=== PATIENT | female | born 1980 | race Caucasian/White ===

== ENCOUNTER → 2017-07-17 10:42 | Outpatient (CLI) | payer MEDICAID, SELFPAY ==
--- NOTE | 2017-07-17 10:46 | RAD_ITS ---
STUDY: X-RAY - LUMBAR SPINE REASON FOR EXAM: Female, 37 years old. Low back pain. TECHNIQUE: 5 view(s) of the lumbar spine were obtained including oblique views. COMPARISON: None FINDINGS: Normal lumbar lordosis. There is no substantial scoliosis. There is a normal alignment of the vertebrae. Normal vertebral bodies and endplates. Normal disc space heights. The soft tissue structures are unremarkable. RAD/L/S Spine Min 4 Views IMPRESSION: Normal x-ray examination of the lumbar spine. Electronically Signed: Francisco Lopez MD at 15:38 EST Tel [phone], Service support ,
== END ==
PROVIDERS: Family Provider Family Medicine; PCP Family Medicine; Visit Provider Anesthesiology Pain Medicine
DX: M54.5 Low back pain (principal)
CPT/HCPCS: 72110

== ENCOUNTER 2017-07-24 11:30 | Outpatient (RCR) | payer MEDICAID, SELFPAY ==
--- NOTE | 2017-06-19 09:58 | HP.PTEVAL_ITS ---
Patient's Visit Information KARLA LANCE is a 37 year old F referred to Physical Therapy by Tom AZAR with a diagnosis of LBP. Date of Evaluation: 06/19/17 Physical Therapist: Sigifredo Hernandez DPT, OC - Visit Plan Frequency: 3x /Week Duration: 4-6 Weeks Plan: 3x/week for 4-6. 1.STM to R LB and upper glut with MH. 2. progression of ext forces as tolerated, R hip ROM and LB ROM. 3. core strength and posture progressing to general ex when tolerated. Emphasize posture adn progression of extension as her motivation to ext is poor. May need to switch to opening R side ex if condition worsens with ext. - Subjective Subjective: Had PT prior for LBP and did not go well. Doctor wants me to try it again now that I detxed off my pain meds. Had chronic back pain 10+ years with DDD and OA. 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 R LB hip and R leg down to foot. Intermittent leg pain and numbness in foot. Constant back pain. 5-10. If stand or sit too long it gets worse.. Sleeping is not good, not more than 3 hours per night due to pain and has to get up and move. No work , disability due to back pain and other medical issues. HEP: none. Basic ADLs are limited to the essentials, Worse pain to stand and cook at stove. Family helps with grocery shopping. Spends day around house and sleeps alot during day. Pool and PT in past as well as massage and injections have not helped alot. More pain after last injection. Saw ortho doctor Trevin who gave her pain meds. Narcotics stopped but they weren't helping anyway. - Pain LBP Pain Intensity (Out of 10): 6 Pain Intensity Range: 4, 8 - Objective Walkls stiff but I into PT, transfers to and fro sit and supine I but slow and painful. LB AROM ext mod limited and pain R, R SB painful, L SB is good, flexion is painful in R hip. reflexes 2/3 in patella and achilles. Sensation mild deficit to gross light touch in R S1 area. Strength in LE is weak in HS R 4- vs 4 in other testing and L LE. + R slump and SLR for back pain. repeated PPU increases back ROM and has NE on pain. - Goals Goal 1:: sleep without waking for 6 hours Goal Time Frame: 4-6 Weeks Goal 2:: L/S ext adn R SB without increased pain Goal Time Frame: 4-6 Weeks Goal 3:: Pain abolished in LE adn 2/10 at worst in LB, 50% improved. Goal Time Frame: 4-6 Weeks Goal 4:: I in approp ex to minimize future problems adn for general health Goal Time Frame: 4-6 Weeks - Rehabilitation Potential Physical Therapy Diagnosis: LBP likely discal in nature. Rehabilitation Potential: Questionable - Anticipated Interventions Patient/Client Instruction: Educate patient on: Condition, Plan of Care For the Purpose of:: To decrease pain, To increase ROM, To improve muscle performance and motor function, To improve ability of physical actions for home/ community/work/leisure Therapeutic Exercise to Include: Strength training, Flexibilty training, Passive ROM, Active ROM, Dynamic Lumbar Stabilization, Luis Miguel Exercises For the Purpose of:: To decrease pain, To increase ROM, To improve ability of physical actions for home/community/work/leisure, To improve gait and locomotor functions Manual Therapy Techniques to Include: Soft tissue mobilization For the Purpose of:: To decrease pain, To increase ROM, To improve nutrient delivery to tissue Thermo therapy (hot pack): Yes For the Purpose of:: To improve nutrient delivery to tissue Thank you for the opportunity to evaluate your patient. For Medicare and Medicare HMO plans, please review the plan of care and approve it. It will need to be FAXED BACK to us at [phone] for Medicare purposes. Please let me know if there are questions or concerns regarding this plan of care. Physician Signature: Date:
--- NOTE | 2017-07-24 12:16 | HP.PTDCSUM_ITS ---
HP - PT D/C Summary It has been my pleasure to treat KARLA LANCE under orders from Tom Giraldo , for the diagnosis of LBP for a total of 7 visit(s). Discharge Date: 07/24/17 Please see the following information for a summary of their discharge status. - Subjective Subjective: No noticeable improvement. LB and R SI still hurting 12/25. F/u with Enzo not scheduled. sees pain doctor. Waiting on ins approval for 6 injections. Doesn't want pain meds. Sleep is half as much as should at about 4 hours per night from bed to couch. I do exercises when i feel like it - Pain LBP Pain Intensity (Out of 10): 8 - Overall Improvement % Improvement: 0 - Objective Objective/Function: ext is improved and not painful at 20 degrees. Felxion hurts R side. B SB is good, but L hurts R side. Not progresing toward goals but ROM slightly improved.OVERALL, NOT IMPROVING. - Goals Goal 1:: sleep without waking for 6 hours Goal Progress: Not Progressing Goal 2:: L/S ext adn R SB without increased pain Goal Progress: Not Progressing Goal 3:: Pain abolished in LE adn 2/10 at worst in LB, 50% improved. Goal Progress: Not Progressing Goal 4:: I in approp ex to minimize future problems adn for general health Goal Progress: Not helping. - Plan Plan: D/C back to doctor for next medical step, injections vs ortho consult. - D/C Information Discharge Comments: No improvement, back to doctor for next step. If there are questions or concerns regarding this patient's physical therapy, please feel free to call me at [phone]. Thank you for the referral of this patient. Sincerely, Sigifredo Hernandez, DPT, OC
== END 2017-07-24 19:00 | disposition home or self-care (01) ==
LOC: PT 11:30
PROVIDERS: Family Provider Family Medicine; PCP Family Medicine; Visit Provider Family Medicine
DX: M54.9 Dorsalgia, unspecified (principal)
CPT/HCPCS: 97110; 97140; 97162; 97530

== ENCOUNTER → 2017-08-12 11:29 | Outpatient (CLI) | payer MEDICAID, SELFPAY ==
--- NOTE | 2017-08-12 11:34 | RAD_ITS ---
STUDY: X-RAY - LUMBAR SPINE REASON FOR EXAM: Female, 37 years old. Right hip pain, fell down steps TECHNIQUE: 5 view(s) of the lumbar spine were obtained. COMPARISON: 07/17/2017 FINDINGS: There is straightening of the normal lumbar lordosis. There is no substantial scoliosis. There is a normal alignment of the vertebrae. Normal vertebral bodies and endplates. Normal disc space heights. The soft tissue structures are unremarkable. RAD/L/S Spine Min 4 Views IMPRESSION: There is straightening of the normal lordotic curve, a nonspecific finding, which may be due to positioning or which might be due to muscle spasm. Electronically Signed: Kiara Day MD at 7:25 EDT , Service support ,
--- NOTE | 2017-08-12 11:34 | RAD_ITS ---
STUDY: X-RAY - PELVIS AND RIGHT HIP REASON FOR EXAM: Female, 37 years old. Right hip pain, fell down steps TECHNIQUE: Radiological exam, hip, unilateral, with pelvis when performed; 2 or 3 views. COMPARISON: None. FINDINGS: There is a non-specific bowel gas pattern. Normal visualized soft tissue structures. Normal bilateral iliac wings, sacroiliac joints and visualized sacrum. Normal bilateral superior and inferior pubic rami. Normal pubic symphysis. Normal bilateral ischial tuberosities. Normal visualized femoral head. Normal acetabulum. Normal hip joint. RAD/Hip 2-3 Views with Pelvis IMPRESSION: Normal x-ray examination of the pelvis and hip. Electronically Signed: Kiara Day MD at 7:27 EDT , Service support ,
--- NOTE | 2017-08-12 11:35 | RAD_ITS ---
STUDY: X-RAY - SACROILIAC JOINTS REASON FOR EXAM: Female, 37 years old. Right hip pain, fell down steps TECHNIQUE: 3 view(s) of the sacroiliac joints were obtained. COMPARISON: CT abdomen and pelvis 11/02/2016. FINDINGS: Normal bilateral sacroiliac joints. Normal visualized sacral ala and sacrum. Normal visualized iliac bones. Normal visualized soft tissue structures. RAD/S-I Jts 3 or More Views IMPRESSION: Normal x-ray examination of the bilateral sacroiliac joints. Electronically Signed: Kiara Day MD at 6:42 EDT , Service support ,
== END ==
PROVIDERS: Family Provider Family Medicine; PCP Family Medicine; Visit Provider Family Medicine
DX: M25.551 Pain in right hip (principal); M54.17 Radiculopathy, lumbosacral region
CPT/HCPCS: 72110; 72202; 73502

== ENCOUNTER → 2017-09-09 11:45 | Outpatient (CLI) | payer MEDICAID, SELFPAY ==
[2017-09-09 14:03] LABS: Absolute Lymphocyte Count 1.93 X10^3/ul (0.83-4.51); Absolute Neutrophil Count 5.4 X10^3/uL (2.0-7.7); Basophil# 0.05 X10^3/uL; Basophil% 0.6 % (0-1); Eosinophil# 0.08 X10^3/uL; Hematocrit 42.5 % (37-47); Hemoglobin 14.3 g/dl (12.0-15.0); Lymphocyte # 1.93 X10^3/ul (4.0); Lymphocyte % 24.7 % (19-41); Mean Corp Hgb Conc 33.6 g/gl (32-36); Mean Corpuscular Hgb 30.7 pg (27.0-32.0); Mean Corpuscular Volume 91.2 fL (81-99); Mean Platelet Vol. 10.7 fl (6.2-12.0); Monocyte# 0.35 X10^3/uL; Monocyte% 4.5 % (0-10); Neutrophil # 5.38 X10^3/uL (2.7-7.7); Neutrophil % 68.8 % (47-70); Platelet Count 270 K/mm3 (150-450); RBC Distribution Width SD 46.4 fl (35.1-43.9); Red Blood Count 4.66 M/mm3 (4.2-5.4); White Blood Count 7.8 K/mm3 (4.4-11.0)
[2017-09-09 14:04] LABS: POSITIVE COUNT NO; POSITIVE DIFFERENTIAL NO; POSITIVE MORPHOLOGY NO
[2017-09-09 14:28] LABS: ALB/GLOB Ratio 1.5 RATIO (0.9-2.4); AST(SGOT) 22 U/L (15-37); Alanine Aminotransfer ALT/SGPT 50 U/L (13-56); Albumin, Serum 4.5 g/dL (3.2-5.0); Alkaline Phosphatase 80 U/L (45-117); Anion Gap 7 (5-15); BUN 22 mg/dL (7-18); BUN/Creat Ratio 23.5 RATIO (10-20); Calcium,Total 9.5 mg/dL (8.5-10.1); Chloride 105 mmol/L (98-107); Creatinine, Serum 0.94 mg/dL (0.55-1.02); EST Glomerular Filtration Rate 72 mL/min (>60); Est Glom Filt Rate - Afr Amer 87 mL/min (>60); Globulin 3.1 g/dL (2.2-4.2); Glucose 81 mg/dL (74-106); Potassium 3.7 mmol/L (3.5-5.1); Protein, Total 7.6 g/dL (6.4-8.2); Sodium Level 138 mmol/L (136-145)
== END ==
PROVIDERS: Family Provider Family Medicine; PCP Family Medicine; Visit Provider Family Medicine
DX: R11.2 Nausea with vomiting, unspecified (principal)
CPT/HCPCS: 36415; 80053; 85025

== ENCOUNTER → 2017-09-30 13:53 | Outpatient (CLI) | payer MEDICAID, SELFPAY ==
[2017-10-01 14:36] LABS: HPV Reflexed? NOT INDICATED
== END ==
PROVIDERS: Visit Provider Obstetrics & Gynecology
DX: Z12.4 Encounter for screening for malignant neoplasm of cervix (principal)
CPT/HCPCS: 88175; G0145

== ENCOUNTER 2017-10-15 08:29 | Day surgery (SDC) | payer MEDICAID, SELFPAY ==
[2017-10-15] VITALS (7 sets, daily range): BP systolic 98–117; BP diastolic 59–85; PULSE 71–82; RESP 14–18; TEMP 35.7–36.4; O2SAT 92–100; BMI 23.7
--- NOTE | 2017-10-15 | IMM_PTH ---
PATIENT: KARLA LANCE LOC: EN U#:[id number] AGE/SX: 37/F ROOM: RE10/15/[address]: Dr. Haley Gutiérrez MD : 1980 BED: DIS: 10/15/2017 SPEC #: [id number] RECD: 10/16/17 10:35 STATUS: KIRAN REQ #: [id number] NOLBERTO: 10/15/17 00:[address]: Haley Gutiérrez DEPT: IMMUNOHISTOCHEMISTRY RECD BY: Yulisa Dong ENTERED: 10/16/17 10:35 SP TYPE: IMMUNO OTHR DR: Dr. Tom Giraldo MD Tissues: A - Stomach, NOS Procedures: H Pylori (initial) PHYSICIAN & INSTITUTION [place] [id number] SPECIMEN INFORMATION: Tissue Source: A ? Antrum biopsy Clinical Info: Epigastric abdominal pain, nausea, vomiting Specimen Number: [id number] CPT code: 23840 METHODOLOGY: Deparaffinized sections of prefer/formalin-fixed tissue or PAP/DQ stained slides are incubated with monoclonal/polyclonal antibodies/oligonucleotide probes. Localization is made via biotin free immunoperoxidase method. Appropriate controls are performed and reacted as expected. Results on target cell population are indicated in the following table: RESULTS: ANTIBODY / CLONE RESULT Block A H Pylori (polyclonal) negative These tests were developed and their performance characteristics determined by [facility]. They may not have been cleared or approved by the U.S. Food and Drug Administration. The FDA has determined that such clearance or approval is not necessary. INTERPRETATION: A. Antrum, biopsy: Negative for Helicobacter pylori organisms. AM:heidi 10/16/17
[2017-10-15 08:50] LABS: Internal QC Validated? YES +Cl - CLEAR BKGD; Pregnancy, Urine Negative Negative
--- NOTE | 2017-10-15 09:18 | GASB_PTH ---
PATIENT: KARLA LANCE LOC: EN U#:[id number] AGE/SX: 37/F ROOM: RE10/15/[address]: Dr. Haley Gutiérrez MD : 1980 BED: DIS: 10/15/2017 SPEC #: [id number] RECD: 10/15/17 12:40 STATUS: KIRAN MARCELLO #: [id number] NOLBERTO: 10/15/17 09:[address]: Haley Gutiérrez DEPT: SURGICAL PATHOLOGY RECD BY: Clint Puentes ENTERED: 10/15/17 13:00 SP TYPE: Gastric Bx OTHR DR: Dr. Tom Giraldo MD Tissues: A - Gastric mucous membrane B - Gastric mucous membrane Procedures: Surgery Specimen Level IV HEADER OPERATION: EGD with biopsy PRE-OP DIAGNOSIS: Epigastric abdominal pain, nausea, vomiting TISSUE SUBMITTED: A ? Antrum biopsy for H. pylori and path, B ? GE junction biopsy MICROSCOPIC DIAGNOSIS A. Gastric antrum, biopsy: Minimal chronic inflammation. See comment. B. Gastroesophageal junction, biopsy: Chronic inflammation. No evidence of Quan?s specialized epithelium. AM:heidi 10/16/17 COMMENT A. The results of immunohistochemistry for Helicobacter pylori will be reported separately ([id number]). MICROSCOPIC DESCRIPTION Slides are reviewed. GROSS DESCRIPTION A - Received in fixative is one container labeled with the patient's name and designated antrum for H.?pylori and path. The specimen consists of one irregular fragment of light aleman soft tissue that measures 0.3 x 0.3 x 0.1 cm. The specimen is totally submitted in one cassette. B - Received in fixative is one container labeled with the patient's name and designated GE junction biopsy. The specimen consists of one irregular fragment of light aleman soft tissue that measures 0.3 x 0.3 x 0.1 cm. The specimen is totally submitted in one cassette. / SJ:heidi 10/15/17 TC:3 CPT: 72588 x2
--- NOTE | 2017-10-15 12:56 | OP.PCM_ITS ---
Report of Operation Date of Procedure: 10/15/17 Pre-Operative Diagnosis: Epigastric pain, nausea vomiting, diarrhea, constipation Post-Operative Diagnosis: Mild gastritis, GERD, internal hemorrhoids Surgery/Procedure Performed:: EGD with biopsy, colonoscopy Type of Anesthesia:: MAC Anesthesiologist: Evan Fitch Specimen's removed: 1. Antral biopsy, 2. GE junction biopsy Estimated Blood Loss (mL): Minimal Description of Procedure: Procedure: EGD with biopsy After obtaining informed consent, the endoscope was passed under direct visualization. Throughout the procedure, patient's blood pressure, pulse, oxygen saturations were monitored continuously by anesthesia. The endoscope was introduced through the mouth and advanced to the 2nd part of the duodenum. The upper GI endoscopy was accomplished without difficulty. Patient tolerated procedure well. Findings: Patch mild erythematous mucosa found gastric antrum and mild change of mucosa at GE junction. Biopsies were taken with cold biopsy for histology. Estimated blood loss was minimal. The duodenum was normal. Impression: 1. Mild change of mucosa at GE junction. Biopsied 2. Erythematous mucosa in the antrum. Biopsied. 3. Normal examined duodenum Recommendations: Await biopsies Start omeprazole 40 mg p.o. daily Procedure: Colonoscopy After reviewing the risks benefits, the patient was deemed in satisfactory condition to undergo procedure. After obtaining informed consent, the scope was passed under direct visualization. Throughout the procedure, the patient's blood pressure pulse and position saturations were monitored continuously anesthesia. The colonoscope was introduced through the anus and advanced to the cecum, identified by the appendiceal orifice, IC valve and transillumination. The colonoscopy was performed without difficulty. The patient tolerated procedure well. Quality of bowel prep was good. Findings: The perianal and digital rectal exam revealed internal hemorrhoids. The colon (entire examined portion) appeared normal. Retroflexed view of the distal rectum and anal verge showed internal hemorrhoids -grade 1 Impression: 1. The entire colon is normal. 2. Internal hemorrhoids grade 1 Recommendations: No obvious cause of constipation/diarrhea was seen, patient may have a bit of a redundant colon. - Complications none
== END 2017-10-15 11:48 | disposition home or self-care (01) ==
LOC: EN 08:30 → AC 08:31
PROVIDERS: Anesthesiology; Family Provider Family Medicine; PCP Family Medicine; Visit Provider Surgery
PROC: 0DJD8ZZ Inspection of Lower Intestinal Tract, Via Natural or Artificial Opening Endoscopic (ICD-10-PCS; CPT 45378; principal; 2017-10-15 09:25)
DX: K29.70 Gastritis, unspecified, without bleeding (principal); K59.00 Constipation, unspecified; K21.9 Gastro-esophageal reflux disease without esophagitis; K64.8 Other hemorrhoids; F41.9 Anxiety disorder, unspecified; I10 Essential (primary) hypertension; G43.909 Migraine, unspecified, not intractable, without status migrainosus; F17.200 Nicotine dependence, unspecified, uncomplicated
CPT/HCPCS: 43239; 45378; 81025; 88305; 88342; J7120; J2405

== ENCOUNTER → 2017-11-25 11:25 | Outpatient (CLI) | payer MEDICAID, SELFPAY ==
--- NOTE | 2017-11-25 11:28 | RAD_ITS ---
STUDY: X-RAY - ABDOMEN/PELVIS REASON FOR EXAM: Female, 37 years old. Chronic abdominal pain TECHNIQUE: Two AP supine views of the abdomen and pelvis. COMPARISON: 03/09/2015 FINDINGS: Normal visualized lung bases. Pelvic phleboliths. Constipation pattern is present. Nonobstructive bowel gas pattern. There is no demonstrated free abdominal air. The visualized liver, spleen and kidneys are grossly normal in size and morphology. Normal soft tissue structures. Normal visualized osseous structures. RAD/Abd Inc Decub and/or Erect IMPRESSION: Constipation pattern is present. Nonobstructive bowel gas pattern. Electronically Signed: Ravinder Cordero MD at 0:29 EDT Tel , Service support ,
[2017-11-25 14:23] LABS: Absolute Neutrophil Count 5.1 X10^3/uL (2.0-7.7); Basophil# 0.08 X10^3/uL; Eosinophil# 0.14 X10^3/uL; Eosinophils% 1.7 % (0-5); Hematocrit 43.6 % (37-47); Hemoglobin 14.7 g/dl (12.0-15.0); Lymphocyte % 28.3 % (19-41); Mean Corp Hgb Conc 33.7 g/gl (32-36); Mean Corpuscular Hgb 30.8 pg (27.0-32.0); Mean Corpuscular Volume 91.2 fL (81-99); Mean Platelet Vol. 10.4 fl (6.2-12.0); Monocyte% 6.2 % (0-10); Neutrophil # 5.09 X10^3/uL (2.7-7.7); Neutrophil % 62.6 % (47-70); Platelet Count 269 K/mm3 (150-450); RBC Distribution Width CV 13.9 % (11.6-14.6); RBC Distribution Width SD 46.1 fl (35.1-43.9); Red Blood Count 4.78 M/mm3 (4.2-5.4); White Blood Count 8.1 K/mm3 (4.4-11.0)
[2017-11-25 14:30] LABS: POSITIVE COUNT NO; POSITIVE DIFFERENTIAL NO; POSITIVE MORPHOLOGY NO
[2017-11-25 14:31] LABS: AST(SGOT) 19 U/L (15-37); Alanine Aminotransfer ALT/SGPT 32 U/L (13-56); Albumin, Serum 3.9 g/dL (3.2-5.0); Alkaline Phosphatase 79 U/L (45-117); Anion Gap 10 (5-15); BUN 22 mg/dL (7-18); BUN/Creat Ratio 23.8 RATIO (10-20); Calcium,Total 9.2 mg/dL (8.5-10.1); Chloride 105 mmol/L (98-107); Creatinine, Serum 0.92 mg/dL (0.55-1.02); EST Glomerular Filtration Rate 73 mL/min (>60); Est Glom Filt Rate - Afr Amer 88 mL/min (>60); Globulin 3.9 g/dL (2.2-4.2); Glucose 83 mg/dL (74-106); Potassium 3.7 mmol/L (3.5-5.1); Protein, Total 7.8 g/dL (6.4-8.2); Sodium Level 140 mmol/L (136-145)
== END ==
PROVIDERS: Family Provider Family Medicine; PCP Family Medicine; Visit Provider Family Medicine
DX: R11.0 Nausea (principal)
CPT/HCPCS: 36415; 74019; 80053; 85025

== ENCOUNTER → 2018-01-08 16:26 | Outpatient (CLI) | payer MEDICAID, SELFPAY ==
[2018-01-08 21:12] LABS: Chlamydia Trachomatis by PCR Negative (Negative); Neisserai gonorrhoeae by PCR Negative (Negative); Probe Check PASS; Sample Adequacy Control PASS; Specimen Processing Control PASS
== END ==
PROVIDERS: Visit Provider Obstetrics & Gynecology
DX: Z11.3 Encounter for screening for infections with a predominantly sexual mode of transmission (principal)
CPT/HCPCS: 87491; 87591

== ENCOUNTER 2018-03-21 10:06 | Emergency (ER) | payer MEDICAID, SELFPAY ==
[2018-03-21 10:07] VITALS: BP 110/62; PULSE 87; RESP 18; TEMP 36.5; O2SAT 97; BMI 22.9
--- NOTE | 2018-03-21 10:32 | CT_ITS ---
STUDY: CT ABDOMEN AND PELVIS WITHOUT CONTRAST REASON FOR EXAM: Female, 37 years old. Nausea and vomiting x2 days RADIATION DOSAGE (If Supplied By Facility): CTDIvol = ( 6.81 ) mGy, DLP = ( 372.84 ) mGycm TECHNIQUE: Transaxial images were obtained from the dome of the diaphragm to the symphysis pubis without oral contrast, and without intravenous contrast. Sagittal and coronal images were reconstructed. Individualized dose optimization techniques were used for this CT. COMPARISON: None. FINDINGS: The visualized lung bases are unremarkable. The visualized portions of the heart are within normal limits. Normal liver. There are surgical clips in the gallbladder fossa consistent with a prior cholecystectomy. Normal spleen. Normal pancreas. Normal bilateral adrenal glands. Normal right kidney. Normal left kidney. Normal visualized stomach. Normal small intestine. Extensive fecal retention throughout the abdomen and pelvis compatible with constipation. The appendix is visualized and appears normal. Normal abdominal aorta. Normal inferior vena cava. Normal retroperitoneum. Normal urinary bladder. Normal visualized uterus. Normal abdominal wall. Normal osseous structures. CT/Abdomen/Pelvis without Cont IMPRESSION: Significant fecal retention throughout the colon compatible with constipation. Unremarkable appendix Electronically Signed: Chris Diop DO at 12:11 EST Tel , Service support ,
[2018-03-21] MEDS: Metoclopramide 10 MG/2 ML Vial IV (10:55)
[2018-03-21] MEDS: Ketorolac 30 MG/ML Syringe IV (10:55)
[2018-03-21] MEDS: 0.9% Normal Saline 1,000 ML 1000 ML IV (10:55)
[2018-03-21 11:00] LABS: Absolute Lymphocyte Count 2.21 X10^3/ul (0.83-4.51); Absolute Neutrophil Count 5.7 X10^3/uL (2.0-7.7); Basophil# 0.07 X10^3/uL; Basophil% 0.8 % (0-1); Eosinophil# 0.21 X10^3/uL; Eosinophils% 2.4 % (0-5); Hematocrit 44.6 % (37-47); Hemoglobin 15.3 g/dl (12.0-15.0); Lymphocyte # 2.21 X10^3/ul (4.0); Lymphocyte % 25.2 % (19-41); Mean Corp Hgb Conc 34.3 g/gl (32-36); Mean Corpuscular Hgb 30.4 pg (27.0-32.0); Mean Corpuscular Volume 88.7 fL (81-99); Mean Platelet Vol. 9.8 fl (6.2-12.0); Monocyte# 0.57 X10^3/uL; Monocyte% 6.5 % (0-10); Neutrophil # 5.68 X10^3/uL (2.7-7.7); Neutrophil % 64.9 % (47-70); Platelet Count 321 K/mm3 (150-450); RBC Distribution Width CV 14.5 % (11.6-14.6); RBC Distribution Width SD 46.8 fl (35.1-43.9); Red Blood Count 5.03 M/mm3 (4.2-5.4); White Blood Count 8.8 K/mm3 (4.4-11.0)
[2018-03-21 11:02] LABS: POSITIVE COUNT NO; POSITIVE DIFFERENTIAL NO; POSITIVE MORPHOLOGY NO
[2018-03-21 11:08] LABS: Anion Gap 6 (5-15); BUN 20 mg/dL (7-18); BUN/Creat Ratio 22.2 RATIO (10-20); Calcium,Total 9.3 mg/dL (8.5-10.1); Chloride 103 mmol/L (98-107); EST Glomerular Filtration Rate 75 mL/min (>60); Est Glom Filt Rate - Afr Amer 91 mL/min (>60); Estimated Creatinine Clearance 93.45 ml/min; Glucose 114 mg/dL (74-106); Potassium 3.5 mmol/L (3.5-5.1); Sodium Level 138 mmol/L (136-145)
[2018-03-21 11:14] LABS: Pregnancy, Serum, hCG Quali. NEGATIVE Negative (0-9 Nonpreg)
[2018-03-21 11:17] LABS: Lactic Acid 1.2 mmol/L (0.4-2.0)
[2018-03-21] MEDS: Ondansetron 4 MG/2 ML Vial IV (11:59)
[2018-03-21] MEDS: Morphine 4 MG/ML Syringe IV (11:59)
[2018-03-21 12:26] LABS: Mucous, Urine 0 SEEN /hpf (<or=2+); Red Blood Cells-Urine 0 SEEN /hpf (0-5)
[2018-03-21 12:27] LABS: Color, Urine Yellow (Yellow); Glucose, Dipstick Normal (Normal); Ketone-Dipstick Negative (Negative); Leukocyte Esterase-Dipstick 100 /ul (Negative); Nitrite-Dipstick Negative (Negative); Occult Blood-Urine 10 /ul (Negative); Protein-Dipstick 15 mg/dl (Negative); Specific Gravity, Urine 1.015 (1.002-1.030); Urine Bilirubin Dipstick Negative (Negative); Urine Clarity Sl. Cloudy (Clear); Urine Urobilinogen Normal (Normal); Urine pH 6.5 (5.0 - 8.0)
[2018-03-21 12:35] LABS: Bacteria 1+ /hpf (None Seen); Hyaline Cast 0-5 SEEN /lpf (0-5); Squamous Epithelial Cells - UA 0-5 SEEN /hpf (5-10); White Blood Cells 0-5 SEEN /hpf (0-5)
--- NOTE | 2018-03-21 12:47 | ED.DCSUM_ITS ---
- ER Visit Summary Date of Service: 03/21/18 Chief Complaint: [Abdominal pain and vomiting] History of Present Illness: The patient is a 37 F [presents the emergency department complaint of abdominal pain and vomiting times 2 days. Patient states that every time she tries to eat or drink it comes back up. Patient denies any diarrhea and states she had a normal bowel movement this morning. Patient is not had any sick contacts. She has not had any fever. She denies any urinary symptoms. She does describe a headache and does have a history of migraines and this headache is typical of her migraines. Patient is currently on the Depakote shot therefore she does not believe she is and does not have regular periods. Patient does have a history of hypertension, high cholesterol, depression, anxiety, and irritable bowel syndrome with constipation.] Physical Examination: [HEENT-PERRLA, EOMI. Cranial nerves II through XII grossly intact. TMs clear. Mucous membranes moist. No adenopathy. Cardiovascular-regular rate and rhythm without murmur or ectopy Lungs-clear to auscultation, chest wall stable without crepitus or subcu emphysema Abdomen-normoactive bowel sounds, soft. Patient has tenderness palpation over right lower quadrant and suprapubic region. There is no rebound rigidity, or perineal signs. Extremities-intact ?4, normal range of motion, normal pulses, atraumatic] Test Results: [CBC with differential obtained showed a white count of 8.8, hemoglobin 15, hematocrit 45, platelets 321. Chemistries unremarkable. Urinalysis was normal. HCG was negative. Lactate was normal at 1.2. Abdominal CT with out contrast obtained showed a normal appendix and evidence of fecal stasis consistent with constipation.] Emergency Department Course and Treatment: [Patient achieved Reglan as well as Toradol initially to help treat her headache and nausea as well as her abdominal pain. Patient continued complaint of pain in her abdomen was given 4 mill grams of morphine. Patient felt improved after treatment. She had no vomiting in the emergency department.] Treatment Plan: [Patient will be given a prescription for Zoneela, Bentyl, and will be sent home with a bottle of magnesium citrate] Disposition: [Discharged home in stable condition] Impression: [Abdominal pain Constipation] This note was generated with [employer] software. It may contain incorrect words, spelling, and punctuation that were not noted in review of the chart prior to signing ED Disposition - Plan for ED Patient: Chief Complaint: Nausea/Vomiting Referrals: Tom Giraldo MD [Primary Care Provider] -
--- NOTE | 2018-03-21 12:47 | ED.DEP ---
ED Disposition - Plan for ED Patient: Chief Complaint: Nausea/Vomiting Instructions: ED Abdominal Pain Unkn Cause, ED Constipation Prescriptions: Ondansetron [Zofran Odt] 4 mg PO Q8H PRN PRN #10 tab PRN Reason: Nausea Dicyclomine HCl [Bentyl] 20 mg PO TIDAC #20 cap Referrals: Tom Giraldo MD [Primary Care Provider] - 3-5 Days
[2018-03-21] MEDS: Magnesium Citrate 300 ML PO (13:06)
[2018-03-21 13:08] VITALS: BP 104/91
== END 2018-03-21 13:14 | disposition home or self-care (01) ==
LOC: ED 11:41
PROVIDERS: Emergency Provider Emergency Medicine; Family Provider Family Medicine; PCP Family Medicine
DX: K58.1 Irritable bowel syndrome with constipation (principal); R10.31 Right lower quadrant pain; R10.30 Lower abdominal pain, unspecified; I10 Essential (primary) hypertension; E78.00 Pure hypercholesterolemia, unspecified; F32.9 Major depressive disorder, single episode, unspecified; F41.9 Anxiety disorder, unspecified; R51 Headache; Z79.899 Other long term (current) drug therapy; Z72.0 Tobacco use
CPT/HCPCS: 74176; 80048; 81001; 83605; 84703; 85025; 96361; 96374; 96375; 99283; J7030; J2405

== ENCOUNTER 2018-06-18 15:57 | Emergency (ER) | payer MEDICAID, SELFPAY ==
[2018-06-18 15:58] VITALS: BP 114/68; PULSE 75; RESP 16; TEMP 36.2; O2SAT 98; BMI 25.2
--- NOTE | 2018-06-18 16:12 | ED.VISSUMM ---
- ER Visit Summary Date of Service: 06/18/18 Chief Complaint: Spots on the roof of the mouth. History of Present Illness: The patient is a 38 F with painful mouth for the past few days. She has no fever or chills, she has some painful swallowing she is able to swallow. No chest pain shortness of breath, no upper airway congestion, no sick contacts. Physical Examination: Otherwise unremarkable exam, she has very small erythematous spots on the roof further mouth and soft palate there is some spots on the lateral mucosal region. She is speaking in full voice, lungs are clear.. Emergency Department Course and Treatment: Patient was told she has a virus, herpangina, she could treated with Magic mouthwash that her physician gave her, this will likely improve on its own. She has an appointment with her dentist next week. Discharge stable condition Impression: Herpangina This note was generated with [facility] dictation software. It may contain incorrect words, spelling, and punctuation that were not noted in review of the chart prior to signing ED Disposition - Plan for ED Patient: Disposition: Home or Assisted Living Referrals: Tom Giraldo MD [Primary Care Provider] - 3-5 Days Additional Instructions: Aloe up with your dentist next week for evaluation of your sores. If anything worsens, you get fever or chills return to the emergency department.
[2018-06-18] MEDS: Morphine 4 MG/ML Syringe IM (16:18)
[2018-06-18] MEDS: Ondansetron 4 MG/2 ML Vial IM (16:18)
[2018-06-18] MEDS: Ketorolac 30 MG/ML Syringe IM (16:18)
[2018-06-18 16:37] VITALS: BP 97/56; PULSE 88; RESP 16; O2SAT 97
== END 2018-06-18 16:41 | disposition home or self-care (01) ==
PROVIDERS: Emergency Provider Emergency Medicine; Family Provider Family Medicine; PCP Family Medicine
DX: B08.5 Enteroviral vesicular pharyngitis (principal); I10 Essential (primary) hypertension; E78.00 Pure hypercholesterolemia, unspecified; F41.0 Panic disorder [episodic paroxysmal anxiety]; Z72.0 Tobacco use; Z79.899 Other long term (current) drug therapy
CPT/HCPCS: 96372; 99282; J2405

== ENCOUNTER → 2018-07-14 15:11 | Outpatient (CLI) | payer MEDICAID, SELFPAY ==
[2018-06-18 15:58] VITALS: BMI 25.2
--- NOTE | 2018-07-14 15:15 | RAD_ITS ---
STUDY: X-RAY - ACUTE ABDOMINAL SERIES REASON FOR EXAM: Female, 38 years old. History of IBS. TECHNIQUE: Single view of the chest. Supine, and erect view(s) of the abdomen were obtained. COMPARISON: Comparison is made with prior study dated November 25, 2017. FINDINGS: The lungs are clear and expanded. Normal size heart. Normal mediastinum and sebastián. Normal visualized pulmonary arteries. Normal visualized aortic arch and descending thoracic aorta. A large amount of fecal material is seen throughout the colon. There is thickening of the haustral pattern in the right hemicolon. An inflammatory process should be ruled out. The soft tissue structures of the abdomen and pelvis are unremarkable. Normal visualized osseous structures. RAD/Acute Abdomen Inc Chest IMPRESSION: Large amount of fecal material is seen in the colon. Thickening of the haustral pattern in the right hemicolon. An inflammatory process should be ruled out. Electronically Signed: Francisco Lopez, at 15:42 EST , Service support ,
== END ==
PROVIDERS: Family Provider Family Medicine; PCP Family Medicine; Referring Provider Nurse Practitioner Family; Visit Provider Nurse Practitioner Family
DX: R10.9 Unspecified abdominal pain (principal)
CPT/HCPCS: 74022

== ENCOUNTER 2018-07-27 17:05 | Observation (INO) | payer MEDICAID, SELFPAY ==
[2018-07-27] VITALS (10 sets, daily range): BP systolic 106–134; BP diastolic 69–93; PULSE 75–100; RESP 16–19; TEMP 37–37.2; O2SAT 96–99; BMI 24.3; BMI 24.7
--- NOTE | 2018-07-27 17:22 | RAD_ITS ---
STUDY: X-RAY CHEST REASON FOR EXAM: Female, 38 years old. Chest pain TECHNIQUE: Portable chest COMPARISON: 07/14/2018 FINDINGS: There is mild scarring within the left lower lobe. There are no focal consolidative infiltrates. There is no demonstrated pleural abnormality. Normal size heart. Normal mediastinum and sebastián. Normal visualized pulmonary arteries. Normal visualized aortic arch and descending thoracic aorta. Normal visualized thoracic spine. Normal visualized ribs, clavicles, and shoulders. There is no demonstrated abnormality of the visualized soft tissue structures of the upper abdomen. RAD/Chest 1 View (Portable) IMPRESSION: Mild left lower lobe scarring Electronically Signed: Jeevan Lobo, at 18:52 EDT Tel , Service support ,
--- NOTE | 2018-07-27 17:22 | EKG12_ITS ---
Test Reason : CP Blood Pressure : / mmHG Vent. Rate : 098 BPM Atrial Rate : 098 BPM P-R Int : 138 ms QRS Dur : 086 ms QT Int : 344 ms P-R-T Axes : 072 075 055 degrees QTc Int : 439 ms Normal sinus rhythm Normal ECG Confirmed by MOJGAN LAYTON, ONOFRE ([id number]), scientific publications editor KYLAH DE LEON ([id number]) on 07/29/2018 11:23:57 AM Referred By: Davis Yu Confirmed By:ONOFRE ULRICH MD
[2018-07-27] MEDS: Ondansetron 4 MG/2 ML Vial IV ×2 (17:46→18:33)
[2018-07-27] MEDS: Acetaminophen 325 MG Tablet 650 MG PO (17:46)
[2018-07-27] MEDS: 0.9% Normal Saline 1,000 ML 150 ML IV (17:46)
[2018-07-27 17:56] LABS: Absolute Lymphocyte Count 1.24 X10^3/ul (0.83-4.51); Absolute Neutrophil Count 5.4 X10^3/uL (2.0-7.7); Basophil# 0.03 X10^3/uL; Basophil% 0.4 % (0-1); Hematocrit 47.2 % (37-47); Hemoglobin 15.3 g/dl (12.0-15.0); Lymphocyte # 1.24 X10^3/ul (4.0); Lymphocyte % 17.4 % (19-41); Mean Corp Hgb Conc 32.4 g/gl (32-36); Mean Corpuscular Hgb 29.4 pg (27.0-32.0); Mean Corpuscular Volume 90.6 fL (81-99); Mean Platelet Vol. 9.3 fl (6.2-12.0); Monocyte# 0.51 X10^3/uL; Monocyte% 7.1 % (0-10); Neutrophil # 5.35 X10^3/uL (2.7-7.7); POSITIVE COUNT NO; POSITIVE DIFFERENTIAL NO; POSITIVE MORPHOLOGY NO; Platelet Count 316 K/mm3 (150-450); RBC Distribution Width CV 14.7 % (11.6-14.6); RBC Distribution Width SD 48.2 fl (35.1-43.9); Red Blood Count 5.21 M/mm3 (4.2-5.4); White Blood Count 7.1 K/mm3 (4.4-11.0)
--- NOTE | 2018-07-27 18:00 | ED.RN ---
PT REQUESTING MEDICATION FOR JEFF. DR. LOGAN INFORMED. AWAITING FURTHER ORDERS. THIS RN CALLED PHARMACY FOR PLAVIX.
[2018-07-27 18:08] LABS: D-Dimer Quantitative (DVT/PE) < 0.27 FEU/ug/m (0.27-0.49)
[2018-07-27 18:15] LABS: Anion Gap 10 (5-15); BUN 17 mg/dL (7-18); BUN/Creat Ratio 17.1 RATIO (10-20); Calcium,Total 9.8 mg/dL (8.5-10.1); Chloride 103 mmol/L (98-107); Creatinine, Serum 0.99 mg/dL (0.55-1.02); EST Glomerular Filtration Rate 67 mL/min (>60); Est Glom Filt Rate - Afr Amer 81 mL/min (>60); Estimated Creatinine Clearance 84.14 ml/min; Glucose 115 mg/dL (74-106); Potassium 3.8 mmol/L (3.5-5.1); Sodium Level 140 mmol/L (136-145)
[2018-07-27] MEDS: Clopidogrel Bisulfate 75 MG Tablet PO (18:18)
--- NOTE | 2018-07-27 18:29 | ED.DCSUM_ITS ---
- ER Visit Summary Date of Service: 07/27/18 Chief Complaint: [Chest pain] History of Present Illness: The patient is a 38 F [presents to the emergency department complaint of chest pain that started around 1 PM today. Patient states that last evening she had several episodes of diaphoresis throughout the night and woke up and noted that her heart was racing into the 1 teens. Patient describes a heaviness in her chest with pain that radiated down her left arm and she felt very nauseated with it. Patient never had discomfort like this before. Patient initially thought it might be her anxiety so she waited to come in. Patient eventually called EMS to bring her in. Patient states she is allergic to aspirin and that it gives her GI upset. Patient has a history of hypertension, high cholesterol, and she is a smoker. Patient does have a significant family history of heart disease and that her brother at age 42 of a massive heart attack.] Physical Examination: [HEENT-PERRLA, EOMI. Cranial nerves II through XII grossly intact. TMs clear. Mucous membranes moist. No adenopathy. Cardiovascular-regular rate and rhythm without murmur or ectopy Lungs-clear to auscultation, chest wall stable without crepitus or subcu emphysema Abdomen-normoactive bowel sounds, soft, nontender, no rebound or rigidity, no peritoneal signs. Extremities-intact ?4, normal range of motion, normal pulses, atraumatic] Test Results: [EKG obtained arrival shows sinus rhythm with a ventricular rate of 98 bpm with no acute I segment changes. CBC with differential is normal. Chemistries were normal. Troponin was less than 0.015. D-dimer was less than 0.27. Chest x-ray showed nothing acute.] Emergency Department Course and Treatment: [Patient received Plavix 75 mg p.o. and she was given sublingual nitro which improved her pain underwent 5 out of 10. Patient was given 4 mg of Zofran and 4 mg of morphine. Admit for further workup and evaluation] Treatment Plan: [Admit for further workup and evaluation] Disposition: [Admit] Impression: [Chest pain-rule out acute coronary syndrome] This note was generated with [employer] software. It may contain incorrect words, spelling, and punctuation that were not noted in review of the chart prior to signing ED Disposition - Plan for ED Patient: Referrals: Tom Giraldo MD [Primary Care Provider] -
[2018-07-27] MEDS: Morphine 4 MG/ML Syringe IV (18:33)
--- NOTE | 2018-07-27 18:50 | HP.PCM_ITS ---
Problem List (1) Dyslipidemia Status: Chronic (2) Chronic lumbar disc degeneration Status: Chronic (3) Chronic back pain Status: Chronic (4) Anxiety Status: Chronic (5) panic Status: Chronic (6) HTN (hypertension) Status: Chronic (7) Abdominal pain Status: Acute (8) Migraine Status: Chronic (9) Insomnia Status: Chronic History of Present Illness Date of Admission: 07/27/18 Chief Complaint: Chest pain since today The patient is a 38 year old F with multiple comorbidities as listed above including anxiety and panic attack, chronic back pain with lumbar disc degeneration and spinal nerve neuropathy came to ED with chest pain that is started 1 PM today. Prior to that, she felt like heart racing/palpitation and diaphoresis that woke her up around 1 AM. After that, she felt left-sided chest heaviness that radiated to left arm along with nausea and mild headache. In ED, she got nitro which caused her headache worse but chest pain had some relief with morphine. She still has mild chest heaviness but has improved. She did not had subjective shortness of breath. She denies fever, chills or flulike symptoms. EKG shows normal sinus rhythm at 98 bpm. QRS [address]-T changes with compare to previous EKG in March 2017. [] She has strong family history of coronary artery disease/NM in first-degree family relative. Her father had first NM in his 40s/coronary artery disease/bypass surgery and valve replacement, one brother of NM at the age of 42, her mother has coronary artery disease status post stents Past Medical History Past Medical History (Chronic Problems): Chronic Problems (Last Updated 09/28/17 @ 12:50 by Lisa Casey) Dyslipidemia (Chronic) Chronic lumbar disc degeneration (Chronic) Chronic back pain (Chronic) Anxiety (Chronic) panic (Chronic) HTN (hypertension) (Chronic) Migraine (Chronic) Insomnia (Chronic) Medical History: Medical History (Last Updated 09/28/17 @ 12:50 by Lisa Casey) Anxiety (Chronic) F41.9 panic (Chronic) HTN (hypertension) (Chronic) I10 Abdominal pain (Acute) R10.9 Migraine (Chronic) G43.909 Insomnia (Chronic) G47.00 IBS (irritable bowel syndrome) K58.9 Allergies aspirin Adverse Reaction (Verified 07/27/18 17:06) Nausea Home Medications: Ambulatory Orders Medication Instructions Recorded Sumatriptan Succinate [Imitrex] 50 mg PO .X1 PRN 09/09/14 MedroxyPROGESTERone [Depo-Provera] 150 mg IM .[id number] 03/09/15 Zolpidem Tartrate [Ambien] 5 mg PO QHS 12/13/15 Gabapentin [Neurontin] 400 mg PO TID 08/09/16 Metoprolol Tartrate 25 mg PO BID 11/02/16 Dicyclomine HCl [Bentyl] 20 mg PO 4X/DAY 04/03/17 Linaclotide [Linzess] 290 mcg PO DAILY 04/03/17 Lisinopril [Prinivil] 10 mg PO DAILY 04/03/17 Duloxetine Hcl [Cymbalta] 120 mg PO DAILY #60 capsule. 04/06/17 Atorvastatin Calcium [Lipitor] 40 mg PO QHS 10/13/17 Nortriptyline HCl [Pamelor] 50 mg PO QHS 10/13/17 Omeprazole 40 mg PO DAILY #30 capsule. 10/15/17 Buprenorphine 1 each TD QWEEK 06/18/18 Surgical History: Surgical History (Last Updated 09/28/17 @ 13:12 by Lisa Casey) S/P laparoscopic cholecystectomy Z90.49 Surgical History: cholecystectomy Smoking Status: Current every day smoker - Smoke cigarettes half pack per day since teenage - *Family History Maternal Family History: Family History (Last Updated 09/28/17 @ 13:25 by Lisa Casey) Father Hypertension Heart disease Brother CAD (coronary artery disease) Myocardial infarction History Items: Unknown Paternal Family History: Family History (Last Updated 09/28/17 @ 13:25 by Lisa Casey) Father Hypertension Heart disease Brother CAD (coronary artery disease) Myocardial infarction History Items: Heart Disease, Hypertension, Stroke Review of Systems Constitutional: Denies: Chills, Fever, Weight Change HEENT: Reports: Head Aches. Denies: Sinus Congestion, Sinus Drainage, Sore Throat, Visual Changes Cardiovascular: Reports: Chest Pain, Chest Pressure, Heaviness. Denies: Edema, Light Headedness, Orthopnea, Palpitations, Paroxysmal Noc. Dyspnea, Syncope Respiratory: Denies: Cough, Shortness of breath at rest, Sputum production Gastrointestinal: Denies: Abdominal Pain, Nausea, Vomiting Genitourinary: Denies: Dysuria Musculoskeletal: Denies: Joint Pain, Joint Tenderness Skin: Denies: Rash, Wounds Neurological: Denies: Numbness, Tingling, Focal weakness Psychiatric: Denies: Anxiety, Depression, Homicidal Ideations, Suicidal Ideations Hematologic/ Lymphatic: Denies: Easy Bruising, Easy Bleeding VTE Information - Inpt Only VTE Present on Admission: No VTE Mechan Device Prophylaxis: None VTE Pharm Prophylaxis ordered?: Yes - Physical Exam General: Alert, Oriented x3, Cooperative HEENT: Atraumatic, PERRLA, EOMI, Normocephalic Oral: No Gingival or Mucosal Lesions/ Ulcerations Neck: Supple, No JVD, Negative Carotid Bruits Lungs: Clear to auscultation, Normal air movement Cardiovascular: Regular rate, Regular Rhythm, Normal S1, Normal S2, No murmurs Abdomen: Bowel Sounds Present, Soft, Non Tender, Non-Distended Extremities: No edema, Capillary Refill Less than 3 Seconds Skin: No rashes, No breakdown Musculoskeletal: No Tenderness to Palpation of Joints or Extremities, Arthritic Changes - Chronic lumbar back pain and degenerative changes Neurological: Cranial nerves II-XII grossly intact Psych/Mental Status: Normal Affect, Appropriate Vital Signs Temp Pulse Resp BP Pulse Ox 99.0 F 79 19 H 111/74 96 07/27/18 17:09 07/27/18 18:18 07/27/18 18:18 07/27/18 18:18 07/27/18 18:18 Oxygen Delivery Method Room Air Weight: 170 lb Body Mass Index (BMI) 24.3 Laboratory Tests Past 24 Hrs 07/27/18 07/27/18 07/27/18 17:45 17:45 17:45 WBC 7.1 RBC 5.21 Hgb 15.3 H Hct 47.2 H MCV 90.6 MCH 29.4 MCHC 32.4 RDW 14.7 H RDW Differential 48.2 H Plt Count 316 MPV 9.3 Immature Gran % (Auto) 0.100 Neut % (Auto) 75.0 H Lymph % (Auto) 17.4 L [place] % (Auto) 7.1 Eos % (Auto) 0.0 Baso % (Auto) 0.4 Absolute Neuts (auto) 5.4 Absolute Lymphs (auto) 1.24 Total Counted Not Reportable D-Dimer Quant (PE/DVT) < 0.27 L Sodium 140 Potassium 3.8 Chloride 103 Carbon Dioxide 27.0 Anion Gap 10 BUN 17 Creatinine 0.99 Estim Creat Clear Calc 84.14 Est GFR (MDRD) Af Amer 81 Est GFR (MDRD) Non-Af 67 BUN/Creatinine Ratio 17.1 Glucose 115 H Calcium 9.8 Troponin I < 0.015 Assessment/Plan All Active Problems (Last Updated 09/28/17 @ 12:50 by Lisa Casey) Abdominal pain (Acute) The patient is a 38 year old F with multiple comorbidities as listed above including anxiety and panic attack, chronic back pain with lumbar disc degeneration and spinal nerve neuropathy came to ED with chest pain that is started 1 PM today. Prior to that, she felt like heart racing/palpitation and diaphoresis that woke her up around 1 AM. After that, she felt left-sided chest heaviness that radiated to left arm along with nausea and mild headache. In ED, she got nitro which caused her headache worse but chest pain had some relief with morphine. She still has mild chest heaviness but has improved. She did not had subjective shortness of breath. She denies fever, chills or flulike symptoms. EKG shows normal sinus rhythm at 98 bpm. QRS [address]-T changes with compare to previous EKG in March 2017. [] She has strong family history of coronary artery disease/NM in first-degree family relative. Her father had first NM in his 40s/coronary artery disease/bypass surgery and valve replacement, one brother of NM at the age of 42, her mother has coronary artery disease status post stents. 1. Atypical chest pain rule out acute coronary syndrome: Patient is being admitted in PCU. First troponin is negative. Cycle troponins. Lexiscan nuclear stress test tomorrow morning. 2. Hypertension and dyslipidemia: Blood pressure is controlled. Continue lisinopril and atorvastatin. TSH and fasting profile tomorrow a.m. 3. Anxiety with panic attack, depression, migraine headache, IBS and insomnia and chronic pain syndrome with history of opioid dependence on Vicodin: Home medication resumed. Patient is on Cymbalta, Neurontin, Ambien. Patient is also on buprenorphine patch q. weekly. Patient was last admitted in March 2017 for acute opioid withdrawal secondary to Vicodin. 4. Chronic lumbar back pain with lumbar disc degenerative disorder: Patient states he had epidural steroid analgesia in the past. She also had some nerve ablation in the lumbar region?, Unclear what it does. 5 History of DVT: Patient had a right leg DVT about 1 year ago and completed 6 months of Eliquis. Started on Lovenox 40 g subcu daily for DVT prophylaxis. Discontinue if platelet count drops less than 50,000 or hemoglobin less than 8 g% Code Visit OBSV E&M: [id number] Initial observation care L3
--- NOTE | 2018-07-27 19:37 | EKG12_ITS ---
Test Reason : CP ADMISSION Blood Pressure : / mmHG Vent. Rate : 075 BPM Atrial Rate : 075 BPM P-R Int : 134 ms QRS Dur : 088 ms QT Int : 414 ms P-R-T Axes : 030 038 027 degrees QTc Int : 462 ms Normal sinus rhythm Normal ECG When compared with ECG of 04-APR-2017 03:47, No significant change was found Confirmed by OLGA MORRIS ([id number]), managing editor NICK LIRA ([id number]) on 08/02/2018 5:12:06 PM Referred By: Davis Yu Confirmed By:OLGA MORRIS
[2018-07-27] MEDS: Nortriptyline 25 MG Capsule 50 MG PO (22:37)
[2018-07-27] MEDS: Gabapentin 400 MG Capsule PO (22:38)
[2018-07-27] MEDS: Dicyclomine 10 MG Capsule 20 MG PO (22:38)
[2018-07-27] MEDS: Atorvastatin Calcium 40 MG Tablet PO (22:38)
[2018-07-27] MEDS: Metoprolol Tartrate 25 MG Tablet PO (22:38)
[2018-07-27] MEDS: Enoxaparin 40 MG/0.4 ML Syringe SC (22:39)
[2018-07-27] MEDS: Morphine 2 MG/ML Syringe IV (22:40)
[2018-07-27] MEDS: Zolpidem Tartrate 5 MG Tablet PO (22:53)
[2018-07-27] MEDS: 0.9% Normal Saline 1,000 ML 100 ML IV (22:54)
[2018-07-28 02:36] VITALS: BP 97/64; PULSE 77; RESP 18; TEMP 36.9; O2SAT 98
[2018-07-28] MEDS: Ondansetron 4 MG/2 ML Vial IV ×2 (02:36→09:28)
[2018-07-28] MEDS: Morphine 2 MG/ML Syringe IV ×2 (02:38→09:27)
[2018-07-28 03:00] VITALS: PULSE 76
[2018-07-28 05:21] VITALS: BP 106/64; PULSE 82; RESP 18; TEMP 36.8; O2SAT 100
[2018-07-28] MEDS: Pantoprazole Sodium 40 MG Tablet PO (05:24)
[2018-07-28] MEDS: Clopidogrel Bisulfate 75 MG Tablet PO (05:24)
[2018-07-28] MEDS: Lisinopril 10 MG Tablet PO (05:24)
[2018-07-28] MEDS: Gabapentin 400 MG Capsule PO (05:24)
[2018-07-28] MEDS: Dicyclomine 10 MG Capsule 20 MG PO (05:24)
[2018-07-28] MEDS: oxyCODONE 5 MG Tablet PO (05:29)
[2018-07-28 05:44] LABS: Absolute Lymphocyte Count 2.48 X10^3/ul (0.83-4.51); Absolute Neutrophil Count 3.5 X10^3/uL (2.0-7.7); Basophil# 0.04 X10^3/uL; Basophil% 0.6 % (0-1); Eosinophil# 0.07 X10^3/uL; Eosinophils% 1.1 % (0-5); Hematocrit 42.7 % (37-47); Hemoglobin 13.7 g/dl (12.0-15.0); Lymphocyte # 2.48 X10^3/ul (4.0); Lymphocyte % 37.2 % (19-41); Mean Corp Hgb Conc 32.1 g/gl (32-36); Mean Corpuscular Hgb 29.9 pg (27.0-32.0); Mean Corpuscular Volume 93.2 fL (81-99); Mean Platelet Vol. 9.5 fl (6.2-12.0); Monocyte# 0.58 X10^3/uL; Monocyte% 8.7 % (0-10); Neutrophil # 3.46 X10^3/uL (2.7-7.7); Neutrophil % 51.9 % (47-70); POSITIVE COUNT NO; POSITIVE DIFFERENTIAL NO; POSITIVE MORPHOLOGY NO; Platelet Count 267 K/mm3 (150-450); RBC Distribution Width CV 14.9 % (11.6-14.6); RBC Distribution Width SD 49.3 fl (35.1-43.9); Red Blood Count 4.58 M/mm3 (4.2-5.4); White Blood Count 6.7 K/mm3 (4.4-11.0)
[2018-07-28 05:48] LABS: Prothrombin Time (Protime)PT. 13.2 SECONDS (11.7-14.9)
[2018-07-28 05:49] LABS: Partial Thromboplast Time 35.8 Seconds (24.1-36.2)
--- NOTE | 2018-07-28 05:55 | EKG12_ITS ---
Test Reason : AM EKG Blood Pressure : / mmHG Vent. Rate : 075 BPM Atrial Rate : 075 BPM P-R Int : 144 ms QRS Dur : 084 ms QT Int : 392 ms P-R-T Axes : 030 050 027 degrees QTc Int : 437 ms Normal sinus rhythm Normal ECG When compared with ECG of 27-JUL-2018 20:44, MANUAL COMPARISON REQUIRED, DATA IS UNCONFIRMED Confirmed by OLGA MORRIS ([id number]), newspaper or periodical editor NICK LIRA ([id number]) on 08/02/2018 5:12:25 PM Referred By: Davis Yu Confirmed By:OLGA MORRIS
[2018-07-28 06:00] LABS: Anion Gap 6 (5-15); BUN 16 mg/dL (7-18); Calcium,Total 8.6 mg/dL (8.5-10.1); Chloride 108 mmol/L (98-107); Cholesterol 236 mg/dL (200); Creatinine, Serum 0.94 mg/dL (0.55-1.02); EST Glomerular Filtration Rate 71 mL/min (>60); Est Glom Filt Rate - Afr Amer 86 mL/min (>60); Estimated Creatinine Clearance 88.61 ml/min; Glucose 94 mg/dL (74-106); High Density Lipoprotein 46 mg/dL; Potassium 4.1 mmol/L (3.5-5.1); Sodium Level 143 mmol/L (136-145); Thyroid Stim Hormone (TSH) 0.53 uIU/mL (0.358-3.74); Triglycerides 140 mg/dL; Very Low Density Lipoprotein 28 mg/dL (5-40)
--- NOTE | 2018-07-28 09:00 | STRESSREP ---
Stress Test Report Pharmacologic myocardial perfusion stress test. 38-year-old lady with a history of chest pain. Stress protocol: Resting EKG demonstrates normal sinus rhythm with a rate of 78 bpm resting blood pressure was 90/60 mmHg. 0.4 mg of regadenoson was infused per usual protocol followed by rapid intravenous saline flush injection continuous EKG monitoring was performed. The patient maintained sinus rhythm throughout the recording. The maximum heart rate attained was 96 bpm which was 52% of maximum predicted heart rate the maximum workload was 1 metabolic equivalent. There were no ST or T wave changes noted at rest or with peak infusion to suggest abnormal flow reserve. Myocardial perfusion protocol. 10.8 mCi of technetium 99m sestamibi was injected at rest. 0.4 mg of regadenoson was infused per usual protocol. At peak infusion 31.7 mCi of technetium 99m sestamibi was injected stress images were obtained stress and rest images were reconstructed and compared in the short axis vertical long horizontal long axis. Gated images were also obtained per Perfusion SPECT analysis: Review of the stress images demonstrate normal uptake of tracer noted in all areas of myocardium. The resting images demonstrate normal uptake of tracer noted in all areas of the myocardium. No evidence of perfusion defect is noted. Gated SPECT analysis: The gated ejection fraction is noted to be 71%. Conclusion: Normal pharmacologic myocardial perfusion stress test. Preserved ejection fraction.
[2018-07-28 09:16] VITALS: BP 98/47; PULSE 77; RESP 16; TEMP 37.1; O2SAT 98
[2018-07-28] MEDS: DULoxetine Hcl 60 MG Capsule 120 MG PO (09:28)
--- NOTE | 2018-07-28 09:36 | DCINST_ITS ---
- Discharge Diagnoses Current Active Problems: Current Active and Chronic Problems (Last Updated 09/28/17 @ 12:50 by Lisa Casey) Dyslipidemia (Chronic) Chronic lumbar disc degeneration (Chronic) Chronic back pain (Chronic) You will use the following diet at home:: Cardiac Your food should be the consistency of: Regular Your liquids should be the consistency of: Regular/Thin Discharge Activity: Return to Normal Activity Allergies/Adverse Reactions: Allergies aspirin Adverse Reaction (Verified 07/27/18 17:06) Nausea Medications to take at Discharge Sumatriptan Succinate [Imitrex] 50 mg PO .X1 PRN 09/09/14 MedroxyPROGESTERone [Depo-Provera] 150 mg IM .[id number] 03/09/15 Zolpidem Tartrate [Ambien] 5 mg PO QHS 12/13/15 Gabapentin [Neurontin] 400 mg PO TID 08/09/16 Metoprolol Tartrate 25 mg PO BID 11/02/16 Dicyclomine HCl [Bentyl] 20 mg PO 4X/DAY 04/03/17 Linaclotide [Linzess] 290 mcg PO DAILY 04/03/17 Lisinopril [Prinivil] 10 mg PO DAILY 04/03/17 Duloxetine Hcl [Cymbalta] 120 mg PO DAILY #60 capsule. 04/06/17 Atorvastatin Calcium [Lipitor] 40 mg PO QHS 10/13/17 Nortriptyline HCl [Pamelor] 50 mg PO QHS 10/13/17 Omeprazole 40 mg PO DAILY #30 capsule. 10/15/17 Buprenorphine 1 each TD QWEEK 06/18/18 Baclofen 10 mg PO TID 07/27/18 Diclofenac Sodium [Voltaren] 1 gm 07/27/18 Hydroxyzine Pamoate [Vistaril] 50 mg PO TID 07/27/18 Primary Care Physician: Tom Giraldo MD [Primary Care Provider] - Please follow up with your Primary Care Physician in: 1-2 weeks Test Results: Test results from this visit will be discussed in further detail at your follow- up appointment, if applicable. Proposed Discharge Date: 07/28/18
--- NOTE | 2018-07-28 12:49 | DS.PCM_ITS ---
<Gamaliel Rg - Last Filed: 07/28/18 12:45> Discharge Date and Diagnosis Date of Admission: 07/27/18 Date of Discharge: 07/28/18 - Primary Discharge Diagnosis Chest pain-musculoskeletal Chronic pain syndrome, and pain management Chronic lumbar disc degeneration Dyslipidemia Anxiety History of migraines Hypertension Insomnia - Secondary Discharge Diagnosis Chronic Problems (Last Updated 09/28/17 @ 12:50 by Lisa Casey) Dyslipidemia (Chronic) Chronic lumbar disc degeneration (Chronic) Chronic back pain (Chronic) Anxiety (Chronic) panic (Chronic) HTN (hypertension) (Chronic) Migraine (Chronic) Insomnia (Chronic) Hospital Course and Treatment Imaging Results: 07/28/18 05:55 Nuclear Stress Test - Chemical [NM] AM (NON MEDS) Conclusion: Normal pharmacologic myocardial perfusion stress test. Preserved ejection fraction. RAD/Chest 1 View (Portable) IMPRESSION: Mild left lower lobe scarring Operations: None Procedures: Stress test Summary of Care Provided: Hospital course: The patient is a 38 year old F with history as above who presented to the emergency room complaining of left-sided chest pain described as heaviness that radiated into her left arm that woke her up at about 1 AM, associated with palpitations and diaphoresis, headache, nausea. Chest pain was relieved with morphine. EKG was negative, troponin and chest x-ray were negative. She was admitted for chest pain workup. She is placed on telemetry-had no events on the monitor. Troponin was repeated x3 and was negative. D-dimer was negative. The following morning she had a repeat EKG and a stress test. These were both negative. Her pain was felt to be musculoskeletal. We advised her to follow-up with her PCP in 1-2 weeks, and to follow-up with her pain management physician if she has ongoing pain. This patient was seen by Gamaliel Rg PA-C under the supervision of Doctor Mahsa murphy. [] - Physical Exam General: Alert, Oriented x3, Cooperative HEENT: Atraumatic, PERRLA, EOMI, Normocephalic Neck: Supple, No JVD, Negative Carotid Bruits Lungs: Clear to auscultation, Normal air movement Cardiovascular: Regular rate, No murmurs Abdomen: Bowel Sounds Present, Soft, Non Tender Extremities: No edema, Capillary Refill Less than 3 Seconds Skin: No rashes, No breakdown Musculoskeletal: No Tenderness to Palpation of Joints or Extremities Neurological: Cranial nerves II-XII grossly intact Psych/Mental Status: Normal Affect, Appropriate Vital Signs Temp Pulse Resp BP Pulse Ox 98.7 F 77 16 98/47 L 98 07/28/18 09:16 07/28/18 09:16 07/28/18 09:16 07/28/18 09:16 07/28/18 09:16 Oxygen Flow Rate (L/min) 2 Oxygen Delivery Method Nasal Cannula Weight: 172 lb 2.896 oz Body Mass Index (BMI) 24.7 Intake and Output for Last 24 Hours 07/26/18 07/27/18 07/28/18 23:59 23:59 23:59 Intake Total 813 / 813 Balance 813 / 813 Laboratory Tests Past 24 Hrs 07/27/18 07/27/18 07/27/18 17:45 17:45 17:45 WBC 7.1 RBC 5.21 Hgb 15.3 H Hct 47.2 H MCV 90.6 MCH 29.4 MCHC 32.4 RDW 14.7 H RDW Differential 48.2 H Plt Count 316 MPV 9.3 Immature Gran % (Auto) 0.100 Neut % (Auto) 75.0 H Lymph % (Auto) 17.4 L [place] % (Auto) 7.1 Eos % (Auto) 0.0 Baso % (Auto) 0.4 Absolute Neuts (auto) 5.4 Absolute Lymphs (auto) 1.24 Total Counted Not Reportable PT INR APTT D-Dimer Quant (PE/DVT) < 0.27 L Sodium 140 Potassium 3.8 Chloride 103 Carbon Dioxide 27.0 Anion Gap 10 BUN 17 Creatinine 0.99 Estim Creat Clear Calc 84.14 Est GFR (MDRD) Af Amer 81 Est GFR (MDRD) Non-Af 67 BUN/Creatinine Ratio 17.1 Glucose 115 H Calcium 9.8 Troponin I < 0.015 Triglycerides Cholesterol LDL Cholesterol VLDL Cholesterol HDL Cholesterol TSH 07/27/18 07/27/18 07/28/18 21:05 23:37 05:15 WBC RBC Hgb Hct MCV MCH MCHC RDW RDW Differential Plt Count MPV Immature Gran % (Auto) Neut % (Auto) Lymph % (Auto) [place] % (Auto) Eos % (Auto) Baso % (Auto) Absolute Neuts (auto) Absolute Lymphs (auto) Total Counted PT INR APTT D-Dimer Quant (PE/DVT) Sodium 143 Potassium 4.1 Chloride 108 H Carbon Dioxide 29.0 Anion Gap 6 BUN 16 Creatinine 0.94 Estim Creat Clear Calc 88.61 Est GFR (MDRD) Af Amer 86 Est GFR (MDRD) Non-Af 71 BUN/Creatinine Ratio 17.0 Glucose 94 Calcium 8.6 Troponin I < 0.015 < 0.015 Triglycerides 140 Cholesterol 236 H LDL Cholesterol 162 H VLDL Cholesterol 28 HDL Cholesterol 46 TSH 0.53 07/28/18 07/28/18 05:15 05:15 WBC 6.7 RBC 4.58 Hgb 13.7 Hct 42.7 MCV 93.2 MCH 29.9 MCHC 32.1 RDW 14.9 H RDW Differential 49.3 H Plt Count 267 MPV 9.5 Immature Gran % (Auto) 0.500 Neut % (Auto) 51.9 Lymph % (Auto) 37.2 [place] % (Auto) 8.7 Eos % (Auto) 1.1 Baso % (Auto) 0.6 Absolute Neuts (auto) 3.5 Absolute Lymphs (auto) 2.48 Total Counted Not Reportable PT 13.2 INR 1.0 APTT 35.8 D-Dimer Quant (PE/DVT) Sodium Potassium Chloride Carbon Dioxide Anion Gap BUN Creatinine Estim Creat Clear Calc Est GFR (MDRD) Af Amer Est GFR (MDRD) Non-Af BUN/Creatinine Ratio Glucose Calcium Troponin I Triglycerides Cholesterol LDL Cholesterol VLDL Cholesterol HDL Cholesterol TSH Discharge Diet: Low fat/ Low Cholesterol, 2000 mg Sodium Diet Discharge Activity: Return to Normal Activity Home Medications: Medications to take at Discharge Sumatriptan Succinate [Imitrex] 50 mg PO .X1 PRN 09/09/14 MedroxyPROGESTERone [Depo-Provera] 150 mg IM .[id number] 03/09/15 Zolpidem Tartrate [Ambien] 5 mg PO QHS 12/13/15 Gabapentin [Neurontin] 400 mg PO TID 08/09/16 Metoprolol Tartrate 25 mg PO BID 11/02/16 Dicyclomine HCl [Bentyl] 20 mg PO 4X/DAY 04/03/17 Linaclotide [Linzess] 290 mcg PO DAILY 04/03/17 Lisinopril [Prinivil] 10 mg PO DAILY 04/03/17 Duloxetine Hcl [Cymbalta] 120 mg PO DAILY #60 capsule. 04/06/17 Atorvastatin Calcium [Lipitor] 40 mg PO QHS 10/13/17 Nortriptyline HCl [Pamelor] 50 mg PO QHS 10/13/17 Omeprazole 40 mg PO DAILY #30 capsule. 10/15/17 Buprenorphine 1 each TD QWEEK 06/18/18 Baclofen 10 mg PO TID 07/27/18 Diclofenac Sodium [Voltaren] 1 gm 07/27/18 Hydroxyzine Pamoate [Vistaril] 50 mg PO TID 07/27/18 Primary Care Physician: Tom Giraldo MD [Primary Care Provider] - Please follow up with your Primary Care Physician in: 1-2 weeks Please Follow Up With: Tom Giraldo MD Minutes spent on discharge:: 35 Patient Condition:: Stable Medical Necessity - Tobacco Use Smoking Status: Current every day smoker Tobacco Use: Cigarettes Meaningful Use Info Meaningful Use Diagnoses (Choose all that apply): None applicable <Chance Hansen - Last Filed: 07/28/18 14:01> Discharge Date and Diagnosis - Secondary Discharge Diagnosis Chronic Problems (Last Updated 09/28/17 @ 12:50 by Lisa Casey) Dyslipidemia (Chronic) Chronic lumbar disc degeneration (Chronic) Chronic back pain (Chronic) Anxiety (Chronic) panic (Chronic) HTN (hypertension) (Chronic) Migraine (Chronic) Insomnia (Chronic) Hospital Course and Treatment Imaging Results: 07/28/18 05:55 Nuclear Stress Test - Chemical [NM] AM (NON MEDS) Summary of Care Provided: This patient was seen in conjunction with Gamaliel Rg PA-C . I have independently interviewed and examined the patient and reviewed pertinent historical, laboratory, and other data. Please refer to Gamaliel Rg PA-C note for details of this patient's presentation, findings, and recommendations. I have reviewed Gamaliel Rg PA-C note and concur with documented findings. In brief, patient is a 71-year-old lady who presented with chest pain. Patient was placed on a monitored bed RI was ruled out with serial cardiac enzymes. She subsequently underwent a nuclear stress test which was negative for stress- induced ischemia. Patient was discharged home instructed to follow-up with the primary care physician as well as her pain management physician. Hospital course: As documented above - Physical Exam Vital Signs Temp Pulse Resp BP Pulse Ox 98.7 F 77 16 98/47 L 98 07/28/18 09:16 07/28/18 09:16 07/28/18 09:16 07/28/18 09:16 07/28/18 09:16 Oxygen Flow Rate (L/min) 2 Oxygen Delivery Method Nasal Cannula Weight: 78.1 kg Body Mass Index (BMI) 24.7 Intake and Output for Last 24 Hours 07/26/18 07/27/18 07/28/18 23:59 23:59 23:59 Intake Total 813 / 813 Balance 813 / 813 Laboratory Tests Past 24 Hrs 07/27/18 07/27/18 07/27/18 17:45 17:45 17:45 WBC 7.1 RBC 5.21 Hgb 15.3 H Hct 47.2 H MCV 90.6 MCH 29.4 MCHC 32.4 RDW 14.7 H RDW Differential 48.2 H Plt Count 316 MPV 9.3 Immature Gran % (Auto) 0.100 Neut % (Auto) 75.0 H Lymph % (Auto) 17.4 L [place] % (Auto) 7.1 Eos % (Auto) 0.0 Baso % (Auto) 0.4 Absolute Neuts (auto) 5.4 Absolute Lymphs (auto) 1.24 Total Counted Not Reportable PT INR APTT D-Dimer Quant (PE/DVT) < 0.27 L Sodium 140 Potassium 3.8 Chloride 103 Carbon Dioxide 27.0 Anion Gap 10 BUN 17 Creatinine 0.99 Estim Creat Clear Calc 84.14 Est GFR (MDRD) Af Amer 81 Est GFR (MDRD) Non-Af 67 BUN/Creatinine Ratio 17.1 Glucose 115 H Calcium 9.8 Troponin I < 0.015 Triglycerides Cholesterol LDL Cholesterol VLDL Cholesterol HDL Cholesterol TSH 07/27/18 07/27/18 07/28/18 21:05 23:37 05:15 WBC RBC Hgb Hct MCV MCH MCHC RDW RDW Differential Plt Count MPV Immature Gran % (Auto) Neut % (Auto) Lymph % (Auto) [place] % (Auto) Eos % (Auto) Baso % (Auto) Absolute Neuts (auto) Absolute Lymphs (auto) Total Counted PT INR APTT D-Dimer Quant (PE/DVT) Sodium 143 Potassium 4.1 Chloride 108 H Carbon Dioxide 29.0 Anion Gap 6 BUN 16 Creatinine 0.94 Estim Creat Clear Calc 88.61 Est GFR (MDRD) Af Amer 86 Est GFR (MDRD) Non-Af 71 BUN/Creatinine Ratio 17.0 Glucose 94 Calcium 8.6 Troponin I < 0.015 < 0.015 Triglycerides 140 Cholesterol 236 H LDL Cholesterol 162 H VLDL Cholesterol 28 HDL Cholesterol 46 TSH 0.53 07/28/18 07/28/18 05:15 05:15 WBC 6.7 RBC 4.58 Hgb 13.7 Hct 42.7 MCV 93.2 MCH 29.9 MCHC 32.1 RDW 14.9 H RDW Differential 49.3 H Plt Count 267 MPV 9.5 Immature Gran % (Auto) 0.500 Neut % (Auto) 51.9 Lymph % (Auto) 37.2 [place] % (Auto) 8.7 Eos % (Auto) 1.1 Baso % (Auto) 0.6 Absolute Neuts (auto) 3.5 Absolute Lymphs (auto) 2.48 Total Counted Not Reportable PT 13.2 INR 1.0 APTT 35.8 D-Dimer Quant (PE/DVT) Sodium Potassium Chloride Carbon Dioxide Anion Gap BUN Creatinine Estim Creat Clear Calc Est GFR (MDRD) Af Amer Est GFR (MDRD) Non-Af BUN/Creatinine Ratio Glucose Calcium Troponin I Triglycerides Cholesterol LDL Cholesterol VLDL Cholesterol HDL Cholesterol TSH Code Visit OBSV E&M: 56228 Observation care discharge
== END 2018-07-28 09:36 | disposition home or self-care (01) ==
LOC: ED 17:27 → PCU 19:07
PROVIDERS: Admitting Provider Internal Medicine; Emergency Provider Emergency Medicine; Family Provider Family Medicine; PCP Family Medicine; Referring Provider Internal Medicine; Visit Provider Internal Medicine
DX: R07.89 Other chest pain (principal); I10 Essential (primary) hypertension; E78.5 Hyperlipidemia, unspecified; G43.909 Migraine, unspecified, not intractable, without status migrainosus; M51.36 Other intervertebral disc degeneration, lumbar region; Z82.49 Family history of ischemic heart disease and other diseases of the circulatory system; Z79.899 Other long term (current) drug therapy; K58.9 Irritable bowel syndrome, unspecified; F17.210 Nicotine dependence, cigarettes, uncomplicated; F41.0 Panic disorder [episodic paroxysmal anxiety]; Z86.718 Personal history of other venous thrombosis and embolism; F32.9 Major depressive disorder, single episode, unspecified; G89.4 Chronic pain syndrome; Z79.891 Long term (current) use of opiate analgesic
CPT/HCPCS: 36415; 71045; 78452; 80048; 80061; 84443; 84484; 85025; 85379; 85610; 85730; 93005; 93017; 96361; 96372; 96374; 96375; 96376; 99218; 99285; 99406; A9500; J7030; A4216; G0378; J2405; J2785

== ENCOUNTER → 2018-08-18 11:11 | Outpatient (CLI) | payer MEDICAID, SELFPAY ==
[2018-07-27 20:36] VITALS: BMI 24.7
--- NOTE | 2018-08-18 11:14 | RAD_ITS ---
STUDY: X-RAY - RIGHT CLAVICLE REASON FOR EXAM: Female, 38 years old. Pain following recent injury. TECHNIQUE: 2 view(s) of the clavicle. COMPARISON: None. FINDINGS: Normal clavicle. Normal acromioclavicular articulation. Normal visualized sternoclavicular articulation. Normal visualized pulmonary apex. RAD/Clavicle IMPRESSION: Normal x-ray examination of the clavicle. Electronically Signed: Francisco Lopez, at 11:33 EDT , Service support ,
== END ==
PROVIDERS: Family Provider Family Medicine; PCP Family Medicine; Referring Provider Family Medicine; Visit Provider Family Medicine
DX: S40.019A Contusion of unspecified shoulder, initial encounter (principal)
CPT/HCPCS: 73000

== ENCOUNTER → 2018-08-31 | Outpatient (CLI) | payer MEDICAID, SELFPAY ==
[2018-07-27 20:36] VITALS: BMI 24.7
--- NOTE | 2018-08-31 14:09 | VDLE_ITS ---
Reason For Study: foot pain, hx dvt RIGHT GSV is normal. CFV is compressible, spontaneous, phasic, competent and demonstrates normal augmentation. FV is compressible, spontaneous, phasic, competent and demonstrates normal augmentation. POP V is compressible, spontaneous, phasic, competent and demonstrates normal augmentation. T/P Trunk is compressible. PTV is compressible. RT PerV is compressible. Procedure Exam performed in department. The exam was diagnostic. A preliminary report was called and/or faxed to Dr. Alfred. Interpretation Summary Deep veins of the right lower extremity are patent and compressible segmentally. There is no evidence of right lower extremity deep vein thrombosis. Valvular competence appears intact within the proximal deep venous system on the right . The right greater saphenous vein appears patent and compressible segmentally. Ordering Physician: Mary Alfred Performed By: Gage Dixon RVT
== END | disposition home or self-care (01) ==
LOC: CVS 14:07
PROVIDERS: Family Provider Family Medicine; PCP Family Medicine; Referring Provider Family Medicine; Visit Provider Family Medicine
DX: M79.671 Pain in right foot (principal); Z86.718 Personal history of other venous thrombosis and embolism
CPT/HCPCS: 93971

== ENCOUNTER 2018-09-21 09:00 | Outpatient (RCR) | payer MEDICAID, SELFPAY ==
[2018-07-27 20:36] VITALS: BMI 24.7
--- NOTE | 2018-09-21 09:10 | BH.SGPN.GN ---
Behaviors/Verbalizations/Mental Status: [] Eye contact is good. Motor activity is appropriate. Appearance is casual. Speech is Appropriate. Mood is anxious. Affect is congruent. Thoughts are linear and logical. No evidence of psychosis. Reviewed daily check in sheet and no reports of suicidal ideations or intent Client Response/Progress/Benefit: [] Pt spoke only when prompted. This was pt's first day in IOP. Reports being anxious and irritable. States that she is isolative and angry at the world. Shared that she is isolating from family and friends mainly due to anger and anxiety. Not functioning. MH symptoms interfering with familial, social and overall functioning. Unable to identify what is causing the distress. Group provided support and encouragement. No progress noted as this was first day in IOP. Will continue with IOP to prevent decompensation, stabilize emotions, and to improve functioning. Narrative Note: []
--- NOTE | 2018-09-21 10:08 | BH.SGPN.GN ---
Behaviors/Verbalizations/Mental Status: []Client alert and oriented, casually dressed and groomed. Eye contact good. Motor activity restless. Speech within normal limits. Affect flat, mood irritable. Thoughts linear, logical, no signs of hallucinations or delusions. Client Response/Progress/Benefit: []Client responded well to session, attentive and providing perspective. Client connected with the quote and concept of having different chapters in one?s life. Client shared her disagreement with the quote and stated, ?you can?t just break out of panic.? The group helped client increase insight that one cannot change external stressors, but one can change reactions towards those stressors. Group identified things that can prevent people from moving forward to their next chapter such as; fear of the unknown, negative thoughts, anxiety, trauma, and not knowing how to change. Client helped group discuss the ?chapters of my life? handout and was able to make connections to emotions, thoughts, and actions in each chapter. Client declined to share with the group about what chapter she is in currently. Client appeared to benefit from increasing self-awareness of her current chapter and barriers. Client?s first day in IOP. Client to continue to prevent decompensation and increase mood stability.
--- NOTE | 2018-09-24 11:40 | BH.COMM ---
Communication Note - Communication with Client Communication Note: Pt left IOP at the begining of third group. I contacted pt over the phone. Denies any distress stating that she had to leave early as you father needed her. She denies any suicidal ideations, plan, or intent. Met with the psychiatrsits this afternoon. Agreeable to return on Thursday.
--- NOTE | 2018-09-24 14:35 | HP.PCM_ITS ---
History and Physical Date of Admission: 09/21/18 Chief Complaint: The patient is a 37-year old female who is being admitted to the intensive outpatient mental health treatment program at [facility]. She has a long history of depression, anxiety, a history of opiate addiction and she has personality vulnerabilities. She also has an excoriation disorder. History of Present Illness: The patient stated that she has had problems with depression for about 20 years. Depression comes and goes. Her depression has worsened over about the past 6 months. She is not depressed every day at about a level of 8 out of 10. She has difficulty sleeping at night but also takes naps during the day. Her appetite varies. She has poor energy and a lack of motivation to do things. She denies crying spells. She is not able to enjoy much in life. Her concentration varies. She has little hope for the future. She has had passive thoughts but no active suicidal thoughts. The patient reports problems with anxiety for at least 10 years. She is a big worrier and tends to worry about many different things. She also has difficulty handling stress and becomes easily overwhelmed. She emphasizes that anxiety is her main difficulty in life. Patient also demonstrates personality vulnerabilities. She is a very goss person. He has a history of becoming easily irritable and having angry outbursts. He said I get pissed off when I am anxious. She said that she hates all people and has a lifelong history of problems getting along with others. She she does not trust people. She has a history of problematic relationships. She has a history of not being able to keep jobs and has been fired from jobs. Patient has developed an excoriation disorder. She picks at her face until it bleeds. She tends to pick more when she is anxious or upset. He also has a history of picking her nails but this has improved recently. Past Psychiatric History: The patient was admitted to [facility] in 1999. She said that the admission was prompted by being on the wrong meds. I felt like I was from outer space. She denies any history of suicide attempts. She denies any history of cutting behavior. She was first treated for mental health problems 1-1/2 years ago. She has been seeing a therapist for the past year but has made no progress. She has been treated with a variety of psychiatric medicines over the years by her primary care doctor. As medicines have included Elavil, Ativan, Xanax, Prozac, Effexor and Paxil. She said that Xanax and Ativan were the 2 medicines that it helped her in the past. Current Psychiatric Medications: [place] 50 mg 3 times daily, Ambien 5 mg nightly, nortriptyline 100 mg nightly, Cymbalta 60 mg daily Medical History: Hypertension treated with metoprolol and lisinopril. GERD treated with Prilosec. She has chronic back pain treated with Butrans patch and gabapentin 600 mg 3 times daily. She is in pain management. She has migraine headaches treated with Topamax. She has hypercholesterolemia treated with Lipitor. She has chronic fatigue. She smokes 1/2 pack/day. Allergies: Aspirin Family Psychiatric History: The patient's mother and maternal grandmother have depression and anxiety. Personal/Social History: The patient's parents when she was 3 years old. Had little contact with her mother. She was raised by her father. He denied any abuse in childhood. She had 7 siblings, one is . She does not get along with any of her siblings. She went up to the 11th grade in school. 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 She has had numerous jobs but could not keep them. She is unemployed and is currently being supported by friends, family and child support. She is to and said she was to an alcoholic. She has been together with her current boyfriend for 1 year and says that they have a poor relationship. She describes him as very immature. She feels stuck in the relationship. She has a history of problematic relationships in the past. She has a 13-year-old son. Substance Abuse History: The patient denied any history of alcohol problems. She developed an opiate addiction in the past prior detoxification in 2017. Said that she took prescribed opioid pain medicines but was taking more than prescribed. Review of Systems: Psychiatry ongoing depression and anxiety as per HPI. She is not suicidal but has had passive wishes. There is no psychosis. She is cognitively intact. Constitutional: She is overweight and her weight has increased. Her energy level is poor. Musculoskeletal: She has chronic pain. All other systems reviewed and are negative, other than as per the medical history above. Examination: Patient presents as a demoralized woman who is casually dressed and appropriately groomed. She demonstrates poor social skills. She appears to have a very strong personality. Vital signs: 5 feet 10 inches, weight 180 pounds, respirations 16. Musculoskeletal: She has chronic back pain. Her speech is fluent and spontaneous. Her language is intact. Her judgment and insight are often poor. She is alert and oriented x3. Her affect is demoralized and she appears irritable. Her recent and remote memory appear to be intact. She demonstrates normal attention span and concentration on examination. She has normal thought processes and abstract reasoning. Her associations are intact. There are no hallucinations or delusions and she is not actively suicidal. She demonstrates a normal age-appropriate fund of knowledge. Mental Status Examination: The patient presents as a demoralized woman who is casually dressed and appropriately groomed. She shows evidence of excoriation on her face. She has a strong personality and becomes easily irritable. Thoughts are logical and coherent. Chronic problems with depression and moodiness as per HPI. She is not suicidal. There is no psychosis. She is cognitively intact. Diagnoses: [] [place] I: Generalized anxiety disorder; chronic adjustment disorder with anxiety; depressive disorder unspecified; excoriation disorder; history of opiate use disorder [place] II: Personality disorder unspecified [place] III: Hypertension, GERD, chronic back pain, migraine headaches, hypercholesterolemia, chronic fatigue, nicotine dependence Plan: I am continuing treatment with nortriptyline and Cymbalta at their current doses. I am stopping Ambien and prescribing trazodone 100 mg nightly. I am increasing Vistaril to 100 mg 3 times daily as needed. I am prescribing Abilify 2 mg daily for augmentation treatment. The patient will participate in the intensive outpatient program. During the evaluation I provided 17 minutes of supportive therapy and education regarding her personality vulnerabilities. Also explained to her that I would not be able to prescribe a benzodiazepine because of her history of opiate use disorder and ongoing opioid pain medication use. I will see her again in follow-up.
--- NOTE | 2018-09-24 14:36 | BH.DR.ITP ---
Initial Treatment Plan - Patient Information Visit Information: ADMISSION DATE: 09/21/18 EXPECTED LOS: 4-6 weeks Diagnoses:: Depression unspecified; KIANA; chronic adjustment disorder wieth anxiety; personality disorder unspecified - Problems/Symptoms Problem #1:: KIANA; chronic adjustment disorder with Anxiety Symptom:: Chronic anxiety, worry, difficulties coping with stress Problem #2:: Depressive disorder Symptom:: low mood, anhedonia; low energy, lack of motivation Problem #3:: Personality disorder unspecified Symptom:: Moodiness, anger problems, inability to get along with people; inability to stay on a job
--- NOTE | 2018-09-30 09:10 | BH.SGPN.GN ---
Behaviors/Verbalizations/Mental Status: [] Eye contact is good. Motor activity is appropriate. Appearance is casual. Speech is Appropriate. Mood is anxious/irritable. Affect is congruent. Thoughts are linear and logical. No evidence of psychosis. Reviewed daily check in sheet and no reports of suicidal ideations or intent. Client Response/Progress/Benefit: [] Pt was more active in discussion than previous groups. Provided feedback at times. More engaged today. Shared recent stressors. Talked at length regarding relationship conflicts and how this impacts her mental health. Believes that she realizes that she needs help however her emotions (anger, anxiety) can keep her away. Short check-in however getting used to group process. Progress noted. Benefited from group support and encouragement. Will continue in IOP to stabilize anxiety, prevent decompensation, and improve daily functioning. Narrative Note: []
--- NOTE | 2018-09-30 10:25 | BH.MTP_ITS ---
[facility] Treatment Plan - Patient Information Program Physician:: Dr. Dennis Plata Primary Therapist:: CHRISTY Chavez - Psychiatric Diagnoses Psychiatric Diagnoses:: Generalized anxiety disorder; chronic adjustment disorder with anxiety; depressive disorder unspecified; excoriation disorder; history of opiate use disorder; personality disorder unspecified. Diagnosis Code(s):: F 41.1 - Estimated LOS Estimated LOS (in weeks):: 6 Problem/Goal #1 - Problem/Goal #1 Stated Goal:: Pt will stabilize anxiety levels through decreasing intensity, frequency, and duration of symptoms causing annxiety, while increasing ability to function on daily basis due to Generalized Anxiety Disorder and Adjustment issues through Intensive Outpatient Services. Description of Barriers: Pt has hx of not applying healthy skills and strategies which could be barrier to treatment progress. Pt's negative thinking, distorted thought patterns, and difficulties in trusting others could be potential barriers to progress. Pt additionally has a hx of misusing prescription medications which could be a potential hinderance to treatment progress and application of internal coping mechanisms. Functional Impact: Pt's mental health symptoms have impacted pt's ability to function at baseline. Pt has loss of interest in things she once found enjoyable, difficulty completing daily tasks, and isolative and avoidance behaviors. Pt's symptoms of anxiety have impacted pt's ability to function socially or in the work environment and is currently seeking disability services as a result. Pt has additionally experienced increased engagement in skin picking due to anxiety which has led to sores, infection, and avoiding being in public settings. Goal Relevant Strengths/Supports: Pt is caring and expresses concern about her mental health, she verbalizes desire to get better, and notes that she places high priority on family and would like to improve communication within current relationships. - Objectives Objective #1 Stated Objective: Client will increase ability to identify warning signs and triggers for anxiety as well as learn and utilize 2-3 healthy coping strategies to manage anxious symptoms and reduce excoriation sx. Interventions: Therapist will help client identify her anxiety warning signs and triggers and teach client various internal coping strategies to effectively manage anxiety and replace skin picking in times of increased anxiety. Discharge Criteria: Client will have achieved this goal when she can verbalize at least 2 warning signs and triggers, and is actively utilizing at least 2 healthy coping strategies to replace skin picking and better manage anxious symptoms. Target Date: 11/05/18 Review Date: 10/22/18 Objective #2 Stated Objective: Pt will decrease anxious symptoms AEB reduction in score on the DSM 5 cross-cutting measure and improvement in pt?s daily functioning. Interventions: Through groups and individual therapy, pt will be provided education about anxiety?s impact on body and common physiological reaction to an xiety. Therapist will teach pt appropriate breathing techniques and build healthy coping skills to manage daily anxieties, replace unhealthy coping skills, and reduce stress. Discharge Criteria: Pt will have met this goal when scores on the DSM 5 cross cutting measure for anxiety have been decreased as well as pt?s report that daily functioning has improved. Target Date: 11/05/18 Review Date: 10/22/18 Problem/Goal #2 - Problem/Goal #2 Stated Goal:: Client will increase mood stability and decrease depressive symptoms and anger/irritability through Intensive Outpatient Program. Description of Barriers: Pt has hx of not applying healthy skills and strategies which could be barrier to treatment progress. Pt's negative thinking, distorted thought patterns, and difficulties in trusting others could be potential barriers to progress. Pt additionally has a hx of misusing prescription medications which could be a potential hinderance to treatment progress and application of internal coping mechanisms. Functional Impact: Pt reports mood dysregulation has resulted in increased tension with supports and others due to difficulties in managing irritability or reacting on impulse. Further shared that this has increased isolation as well. Pt has previous lost jobs due to issues with agitation and mood dysregulation. Reports difficulties functioning at baseline and increased loss of interest in activities she has previously enjoyed. Goal Relevant Strengths/Supports: Pt is caring and expresses concern about her mental health, she verbalizes desire to get better, and notes that she places high priority on family and would like to improve communication within current relationships. - Objectives Objective #1 Stated Objective: Client will identify 2-3 triggers and 2-3 new ways to navigate stressful situations rather than becoming irrational and reacting on impulse or isolating/shutting down. Interventions: Therapist will use motivational interviewing, and help client make changes in life to encourage healthy conflict resolution, increased ability to manage emotions in stressful situations, and reduce agitation. Therapist will help client process triggers to increased symptoms, and then identify ways to manage these feelings and thoughts. Therapist will also work on helping client feel less isolated and understand better behaviors and escalating tendencies. Discharge Criteria: Client will have met this goal when able to report decreased irritability and depression, as well as increased ability to better regulate emotions, and consistently use 1-2 coping strategies when feeling overwhelmed. Target Date: 11/05/18 Review Date: 10/22/18 Objective #2 Stated Objective: Pt will decrease depressive and anger related symptoms AEB pt?s score on the DSM 5 cross-cutting measure and improve pt?s daily functioning. Interventions: Through groups and individual therapy, pt will be provided with education on cognitive distortions, stress management, healthy coping, and emotion regulation, and identifying and combating negative self-talk. Therapist will assist pt with getting back into the activities she once enjoyed as well as increasing communication with supports and use of healthy coping strategies. Discharge Criteria: Pt will have met this goal when pt?s score on the DSM 5 cross cutting measure for depression and anger has been decreased and per pt?s report daily functioning has improved. Target Date: 11/05/18 Review Date: 10/22/18
--- NOTE | 2018-09-30 10:25 | BH.MDN ---
Multi-Disciplinary Note - Note 60-min Individual Time Started:: 10:19 Date: 09/30/18 Purpose of session/treatment goals addressed:: The purpose of this session was to build rapport with pt as well as gather information on pt's mental health history, current stressors, symptoms, means for coping, and treatment goals. Eye Contact:: Good Motor Activity:: Appropriate Appearance:: Casual Speech:: Appropriate Mood:: Anxious, Irritable, Depressed Affect:: Constricted Thoughts:: Linear, Logical, No evidence of hallucinations/delusions noted Staff Interventions:: Therapist used active listening and open-ended questions to explore client's current stressors, symptoms, and supports. Gathered background information regarding prior mental health tx history, and explored techniques that have been effective in the past. Therapist used strengths perspective to build rapport and help client identify positives and personal resilience factors. Therapist provided emotional validation and psychoeducation regarding impact of substances in maintaining mental health symptoms. Therapist assisted client in identifying overall treatment goals. Client Response:: Pt receptive of session, willing to discuss treatment history and various factors potentially impacting current mental health functioning. Pt shared that she has struggled with pain management over the past 10 years related to chronic back problems. She went on to indicate ultimately becoming addicted to Vicodin and opioids as a result. Reports that following a conversation with her PCP she come to the realization that she did not want her life to be consumed by addiction and that she wanted to set a good example for her 13 y/o son. Pt indicates doing well to manage urges to use and pain without relapse. Pt attributes this to reminding herself of consequences of use, seeking regular counseling through [facility], and using an opioid block patch. Pt noted wanting to increase her ability to use healthy coping to better regulate her emotions and manage sx of anxiety as well. Described an increase in anxiety over past several months resulting in biting fingernails until they bleed, picking her skin, and frequent panic attacks with fear she is having a heart attack. Pt expressed that she does not have any supports outside of her family and denies healthy means for coping. She reports she has struggled with anxiety and PTSD since her brother unexpectedly of a heart attack while [place]. Pt indicates she is getting close to the age her brother was when he which she believes has been an ongoing trigger worsening each year. Additionally, described relationship problems and increased tension in her relationship due to financial stress. Pt currently endorses symptoms of depression and anxiety including: isolation, avoidance, increased negative thoughts, panic attacks, and irritability. Pt shared her increased anxiety symptoms and physical health have prevented her from working and lead to a social security claim. She noted that while in IOP program she wants to work on managing anxiety and improving current support network Risks/Concerns:: No risks or concerns. Denies any active suicidal ideation, plan, and intent as of 09/30/18. Future oriented and indicates motivations to live, and ability to maintain safety. Hx of opioid use and currently in recovery. Denies urges to relapse and able to identify protective factors. Progress Toward Goals/Plan:: Pt new to IOP tx and therefor unable to make much progress. Since beginning tx she has done well to begin engaging more actively in tx process and is providing increased input to group. In individual sessions pt is able to identify factors impacting mental health and reinforcing mh sx, Pt appears motivated to improve healthy coping and shared a desire to increase anxiety management skills as well as expand supports beyond family. Treatment goals identified to be learning healthy coping skills, reducing anxiety, and finding increased healthy supports. Client to continue IOP to prevent decompensation and promote mood stability. Time Stopped:: 11:21
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
--- NOTE | 2018-09-30 11:25 | BH.SGPN.GN ---
Behaviors/Verbalizations/Mental Status: [Client alert and oriented, casually dressed and groomed. Eye contact fair to good. Motor activity appropriate. Speech appropriate rate and tone. Affect congruent, mood dysthymic, anxious, agitated. Thoughts linear, logical, no signs of hallucinations or delusions.] Client Response/Progress/Benefit: [Client was a mostly active participant AEB client providing some input to discussion and taking notes throughout. Mostly attentive though at time struggling with remaining focused and appearing to fall asleep. Reported connecting to discussion of the different zones of taking action as well as the pros and cons of each. Client agreed with peers that to grow and improve mental health, one must step out of their comfort zone, but not take on too much at once to prevent staying stuck but also avoid burnout. Client completed worksheet in which he identified a problem area to focus on, a SMART goal to help work on problem area, and identify additional supports needed to be successful. Client identified she wants to reduce anxiety. Client identified a small goal which is to reach out to supports and use her stress ball to help remain in the present. Client stated additional supports needed to be successful with goal which included: positive self-talk, reminding to use her supports, taking breaks, and using deep breathing. Appeared to benefit from creating a small goal to aid in mental health progress. Will continue IOP tx to promote use of healthy coping skills, reduce anxiety, improve engagements and mood stability, and prevent decompensation.] Narrative Note: []
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
--- NOTE | 2018-10-01 11:57 | PCM.PN.BLA ---
Progress Note Chief Complaint: The patient is a 38-year old female who is an active participant in the intensive outpatient mental health treatment program at [facility]. She has a long history of depression, anxiety, excoriation disorder, a history of opiate addiction, and she has personality vulnerabilities. History of Present Illness/Interim History: The patient reports continuing symptoms of depression and anxiety. She does say that with the increased dose of Vistaril, her anxiety symptoms are better. She does think that the intensive outpatient groups are helpful. She complains of symptoms which suggest possible side effects of her new medications. She complains that she found herself rearranging things at night, throwing away money orders and other unusual symptoms to suggest sleepwalking. She also complains of jerky feelings in her arms and dropping things. He does say the trazodone seems to help her fall asleep better. Current Psychiatric Medications: Nortriptyline 100 mg nightly, Cymbalta 60 mg daily, Vistaril 100 mg 3 times daily as needed, Abilify 2 mg daily, trazodone 100 mg nightly Review of Symptoms: Psychiatry: Continuing symptoms of depression and anxiety. She is not suicidal. There is no psychosis. She is cognitively intact. Constitutional: She is overweight and her weight has been steady. Her energy level is poor. Mental Status Examination: The patient presents as a demoralized woman who is casually dressed and appropriately groomed. She has a strong personality. Her thoughts are logical and coherent. She continues to experience depression and moodiness. She is not suicidal. There is no psychosis. She is cognitively intact. Diagnoses: Gonzales I: []Generalized anxiety disorder; chronic adjustment disorder with anxiety; depressive disorder and specified; excoriation disorder; history of opiate use disorder Gonzales II: Personality disorder unspecified Gonzales III: [] Hypertension, GERD, chronic back pain, migraine headaches, hypercholesterolemia, chronic fatigue, nicotine dependence Plan: I am continuing treatment with sertraline, Cymbalta and Vistaril. I am stopping Abilify and trazodone. She may resume taking Ambien. He will continue in the intensive outpatient groups. I will see her again for follow-up.
--- NOTE | 2018-10-01 12:07 | PN_ITS ---
Progress Note Chief Complaint: The patient is a 38-year old female who is an active participant in the intensive outpatient mental health treatment program at [facility]. She has a long history of depression, anxiety, excoriation disorder, a history of opiate addiction, and she has personality vulnerabilities. History of Present Illness/Interim History: The patient reports continuing symptoms of depression and anxiety. She does say that with the increased dose of Vistaril, her anxiety symptoms are better. She does think that the intensive outpatient groups are helpful. She complains of symptoms which suggest possible side effects of her new medications. She complains that she found herself rearranging things at night, throwing away money orders and other unusual symptoms to suggest sleepwalking. She also complains of jerky feelings in her arms and dropping things. He does say the trazodone seems to help her fall asleep better. Current Psychiatric Medications: Nortriptyline 100 mg nightly, Cymbalta 60 mg daily, Vistaril 100 mg 3 times daily as needed, Abilify 2 mg daily, trazodone 100 mg nightly Review of Symptoms: Psychiatry: Continuing symptoms of depression and anxiety. She is not suicidal. There is no psychosis. She is cognitively intact. Constitutional: She is overweight and her weight has been steady. Her energy level is poor. Mental Status Examination: The patient presents as a demoralized woman who is casually dressed and appropriately groomed. She has a strong personality. Her thoughts are logical and coherent. She continues to experience depression and moodiness. She is not suicidal. There is no psychosis. She is cognitively intact. Diagnoses: [place] I: []Generalized anxiety disorder; chronic adjustment disorder with anxiety; depressive disorder and specified; excoriation disorder; history of opiate use disorder [place] II: Personality disorder unspecified [place] III: [] Hypertension, GERD, chronic back pain, migraine headaches, hypercholesterolemia, chronic fatigue, nicotine dependence Plan: I am continuing treatment with sertraline, Cymbalta and Vistaril. I am s topping Abilify and trazodone. She may resume taking Ambien. He will continue in the intensive outpatient groups. I will see her again for follow-up.
--- NOTE | 2018-10-07 11:30 | BH.SGPN.GN ---
Behaviors/Verbalizations/Mental Status: []Client alert and oriented, casually dressed and groomed. Eye contact good. Motor activity slowed, head down at times. Speech within normal limits. Affect flat- appearing fatigued, mood irritable. Thoughts linear, logical, no signs of hallucinations or delusions. Client Response/Progress/Benefit: []Client responded well to session, quiet, but participating when prompted. Client appeared to connect with maintenance cycles and recognized how negative thinking can keep a person stuck, but she struggled to complete her thought challenging worksheet. Client identified a negative thought that has kept her stuck. Client?s thought was ?all I do is sleep all the time.? Client shared when she thinks this way it causes client to sleep more, isolate, and feel hopeless. Client recognized that this thought is realistic and unrealistic as she has been sleeping more, but she is productive at times. Client able to reframe the thought to ?I do things even though I?m tired all day.? Client declined to share how reframing this thought would improve her mental health. Client appeared to benefit from practicing challenging negative thinking. Client?s progress is limited due to inconsistent attendance and low engagement in sessions. Client to continue IOP to prevent decompensation and increase mood stability.
--- NOTE | 2018-10-08 10:13 | BH.SGPN.GN ---
Behaviors/Verbalizations/Mental Status: []Eye contact is fair. Motor activity is appropriate. Appearance is casual. Speech is Appropriate. Mood is depressed, irritable. Affect is flat. Thoughts are linear and logical. No evidence of psychosis. Client Response/Progress/Benefit: []Client responded well to session, attentive during discussion, but quiet during session. Client listened to discussion of the importance of sleep and how it impacts mental health. Group able to identify benefits of sleep on mental health including: improved emotional regulation, improved attention, and better cognition. Client stated she has had issues with sleep for months. Client participated in the discussion of the ?dos and don?ts? of sleep hygiene. The group identified strategies to improve sleep hygiene including: turning off electronics, reducing caffeine, having a routine, and engaging in relaxation strategies. Client participated in identifying things to avoid or things that could hinder sleep quality including: drinking alcohol before bed, exercising before bed, eating large meals, and spending time on electronics. Appeared to benefit from psychoeducation on sleep hygiene. Will continue IOP tx as she continues to report mood instability and medication issues.
--- NOTE | 2018-10-08 11:50 | PCM.PN.BLA ---
Progress Note Chief Complaint: The patient is a 38-year old female who is an active participant in the intensive outpatient mental health treatment program at [facility]. She has a long history of depression, anxiety, excoriation disorder, a history of opiate addiction, and she has personality vulnerabilities. History of Present Illness/Interim History: The patient did stop Abilify and trazodone, but her sleepwalking continued. Found herself out on the porch without knowing how she got there. She also found herself getting up at night to eat, with no recollection of her actions. Upon reflection, she notes that she has actually had sleepwalking problems for at least the past 2 years. She is unclear whether Ambien made it worse. She also wonders whether it may have something to do with the Butrans pain patch. I advised that she contact her primary care doctor to see about a sleep consultation and possible sleep study. She complains that she is still anxious. Vistaril as needed at the higher dose has helped some. He also is still irritable and goss. She finds herself wanting to yell and scream at times. She believes that Abilify may have helped some. She said the trazodone helped some with sleep although she still found herself waking up. She has not yet obtained NAC for her excoriation disorder. I recommended that she may want to a jewish history professor to help the recommendations for the healing of her lesions. She does find the intensive outpatient groups to be helpful. Current Psychiatric Medications: Nortriptyline 100 mg nightly, Cymbalta 60 mg daily, Vistaril 100 mg 3 times daily as needed, Ambien prn Review of Symptoms: Psychiatry: 10 Rao symptoms of depression, anxiety and irritability as per HPI. She is not suicidal. There is no psychosis. She is cognitively intact. Constitutional: She is overweight and her weight has been steady. Her energy level is poor. Mental Status Examination: The patient presents as a demoralized woman who is casually dressed and appropriately groomed. She has a strong personality. Her thoughts are logical and coherent. Continued depression, anxiety and moodiness. She is not suicidal. There is no psychosis. She is cognitively intact. Diagnoses: [] [place] I: Generalized anxiety disorder, depressive disorder unspecified, excoriation disorder, history of opiate use disorder, chronic adjustment disorder with anxiety [place] II: Personality disorder unspecified [place] III: Hypertension, GERD, chronic back pain, migraine headaches, hypercholesterolemia, chronic fatigue, nicotine dependence Plan: I am continuing treatment with nortriptyline, Cymbalta and Vistaril as needed. I am stopping Ambien. I am resuming treatment with trazodone 100 mg nightly and Abilify. I am increasing Abilify to 4 mg daily. I am also adding Benadryl 25 mg nightly as needed. The patient will continue participation in the intensive outpatient groups. I will see her again for follow-up.
--- NOTE | 2018-10-08 12:01 | PN_ITS ---
Progress Note Chief Complaint: The patient is a 38-year old female who is an active participant in the intensive outpatient mental health treatment program at [facility]. She has a long history of depression, anxiety, excoriation disorder, a history of opiate addiction, and she has personality vulnerabilities. History of Present Illness/Interim History: The patient did stop Abilify and trazodone, but her sleepwalking continued. Found herself out on the porch without knowing how she got there. She also found herself getting up at night to eat, with no recollection of her actions. Upon reflection, she notes that she has actually had sleepwalking problems for at least the past 2 years. She is unclear whether Ambien made it worse. She also wonders whether it may have something to do with the Butrans pain patch. I advised that she contact her primary care doctor to see about a sleep consultation and possible sleep study. She complains that she is still anxious. Vistaril as needed at the higher dose has helped some. He also is still irritable and goss. She finds herself wanting to yell and scream at times. She believes that Abilify may have helped some. She said the trazodone helped some with sleep although she still found herself waking up. She has not yet obtained NAC for her excoriation disorder. I recommended that she may want to a commercial real estate agent to help the recommendations for the healing of her lesions. She does find the intensive outpatient groups to be helpful. Current Psychiatric Medications: Nortriptyline 100 mg nightly, Cymbalta 60 mg daily, Vistaril 100 mg 3 times daily as needed, Ambien prn Review of Symptoms: Psychiatry: 10 Rao symptoms of depression, anxiety and irritability as per HPI. She is not suicidal. There is no psychosis. She is cognitively intact. Constitutional: She is overweight and her weight has been steady. Her energy level is poor. Mental Status Examination: The patient presents as a demoralized woman who is casually dressed and appropriately groomed. She has a strong personality. Her thoughts are logical and coherent. Continued depression, anxiety and moodiness. She is not suicidal. There is no psychosis. She is cognitively intact. Diagnoses: [] [place] I: Generalized anxiety disorder, depressive disorder unspecified, excoriation disorder, history of opiate use disorder, chronic adjustment disorder with anxiety [place] II: Personality disorder unspecified [place] III: Hypertension, GERD, chronic back pain, migraine headaches, hyperchol esterolemia, chronic fatigue, nicotine dependence Plan: I am continuing treatment with nortriptyline, Cymbalta and Vistaril as needed. I am stopping Ambien. I am resuming treatment with trazodone 100 mg nightly and Abilify. I am increasing Abilify to 4 mg daily. I am also adding Benadryl 25 mg nightly as needed. The patient will continue participation in the intensive outpatient groups. I will see her again for follow-up.
--- NOTE | 2018-10-12 09:10 | BH.SGPN.GN ---
Behaviors/Verbalizations/Mental Status: [] Eye contact is good. Motor activity is appropriate. Appearance is casual. Speech is Appropriate. Mood is anxious. Affect is congruent. Thoughts are linear and logical. No evidence of psychosis. Reviewed daily check in sheet and no reports of suicidal ideations or intent Client Response/Progress/Benefit: [] Pt was an active participant in group discussion. Emotion for today is nervous and anxious. She shared that she had hosted a cookout at her house over the weekend with her family. Reports significant amount of anxiety however was able to slowly introduce herself into the social activities. Utilized skills learned in group, did not set unrealistic goals, and knew her limits. Was also able keep her anger in check which is often what occurs when she is overwhelmed with anxiety, stress, or worry. Admits to her mood does continue in impact her functioning especially in social situations or around people however progress noted per pt. Benefited from group support, feedback, and discussion. Will continue in IOP to prevent decompensation, stabilize anxiety, and learn more effective strategies for mood management. Narrative Note: []
--- NOTE | 2018-10-12 10:15 | BH.SGPN.GN ---
Behaviors/Verbalizations/Mental Status: []Pt eye contact good, casually dressed, motor activity appropriate, speech normal rate and tone, mood anxious, constricted affect, thoughts linear and intact, no evidence of delusions or hallucinations. Client Response/Progress/Benefit: []Client was engaged in group discussion by providing thoughts and ideas throughout discussion and listened attentively to others. Client connected with the topic stating when an obstacle occurs in her life she struggles with moving forward because it's so much easier to lay in bed. Client stated she struggles to motivate herself once she stops moving forward. Client identified her current reality which client described as difficulty having energy or desire to get out of bed or do anything with her son. Client stated she struggles with having the motivation to even go downstairs to hang out with her son. Client able to identify her personal resilience factors in her current reality such as attending therapy and having desire to improve her connection with her son. Client shared her realistic, desired reality would be spending more quality time with her son, decreased anxiety so she she can go outside with her son, and having a desire to be out of her bedroom. Benefited from group as client was able to identify current mental health state, resilience factors, and desired reality. Narrative Note: []
--- NOTE | 2018-10-12 11:17 | BH.SGPN.GN ---
Behaviors/Verbalizations/Mental Status: []Pt eye contact fair, casually dressed, motor activity appropriate, speech normal rate and tone, mood anxious, constricted affect, thoughts linear and intact, no evidence of delusions or hallucinations. Client Response/Progress/Benefit: []Pt was an participant in group as evidenced by pt providing input throughout group discussion and engaged in activity. Pt identified negative thoughts, feeling hopeless, and no motivation as current barriers that are keeping her from desired reality. Through experiential activity group then worked together to develop strategies to overcome various obstacles such as; reframing, reviewing positives, healthy distractions, small goals, recognizing progress, setting boundaries, adjusting expectations, and many more. 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 Pt seemed to benefit from increased awareness of barriers and group brainstorming healthy strategies to overcome barriers. Progress noted with pt showing increased openness to challenging her perspective and being able to note progress within herself. Narrative Note: []
--- NOTE | 2018-10-15 12:07 | BH.COMM ---
Communication Note - Communication with Client Communication Note: Pt scheduled for individual and group sessions on this date, however called to cancel due to oversleeping. Reports ongoing issues with sleeplessness despite taking trazadone for sleep. Pt reports needing a refill of current medications. Concerns regarding sleep discussed with psychiatrist and pt is being referred for a sleep study. Will reschedule individual session for next week.
--- NOTE | 2018-11-01 15:53 | BH.MTP_ITS ---
Treatment Plan Review Date of Admission:: 09/24/18 Date of Treatment Plan Review:: 11/01/18 Admitting Diagnoses:: Generalized anxiety disorder; chronic adjustment disorder with anxiety; depressive disorder unspecified; excoriation disorder; history of opiate use disorder; personality disorder unspecified. Current Diagnoses:: Generalized anxiety disorder; chronic adjustment disorder with anxiety; depressive disorder unspecified; excoriation disorder; history of opiate use disorder; personality disorder unspecified. Patient's Response to Treatment:: Pt has struggled to consistently attend treatment and often cancels or leaves group early for other appointments, illness, or issues with an ongoing foot problem, and has no showed on several occasions. When in attendance, pt often experiences difficulties in remaining awake and has fallen asleep on various occasions. Issues with fatigue may be related to medication concerns, as pt has expressed experiencing various potential medication side effects on several occasions. Pt has reported side effects of fatigue, poor concentration, and reported episodes dissociation in which pt indicates people said she tore her father's house to pieces but has no memory of doing so. Despite these symptoms she continues to struggle with medication inconsistency and is hesitant to reduce current dosage amounts. Additionally, pt has been varying in participation in both the group and individual setting. At times appearing very engaged and motivated while on other occasions is hostile and reluctant. Pt varying participation, irregular attendance, and ongoing medication issues has served as potential barriers to progress. She has reported limited application of internal coping skills for managing anxiety and reducing stress, as well as continues to struggle with completing any assignments provided. Pt reports wanting to be in the IOP program and indicates that if she can figure out while she is experiencing current side affects her participation will be able to improve; however, pt has been recommended to follow-up with PCP regarding outside medications and has also been referred for a sleep study but has not follow-up with either. Status of Current Problems and Symptoms: Pt continues to report depression and anxiety on a daily basis. Her MH symptoms continue to impact her daily functioning and she reports experiencing anxiety when home alone as she has hear d noises and thought people were in her house. This is new compared with sx reported at admission to IOP program and is being followed-up with by program psychiatrist as a potential medication side effect. Pt ongoing difficulties with participation and attendance, as described in previous section, continues to impede progress and management of mental health symptoms. Continues to report periods of isolation and avoiding people, though has increased in communication with her father who is supportive and is consistently attending her son?s races each week. Pt has made progress in setting some boundaries, AEB ending a toxic relationship, though does report struggling to maintain boundaries as she continues to text this person. Pt does report feeling ?better when I leave group? and indicates a reduction in anger/irritability which she has observed in an increased ability to stop and think before reacting to something that makes her upset. Pt completed the DSM-5 Cross Cutting Scales at admission and again today. Per this scale pt had a reduction in some symptoms including depression, anxiety, and self-harming thoughts. Thoughts of hurting herself decreased from rare, less than a day a week to ?none, not at all?. Pt scores for Depression reduced from 7/8 to a score of 5/8 and scores for Anxiety reducing from 04/28 to a 01/27. While some progress has been noted pt continues to struggle with implementation of skills and reports increased symptoms associated with santos, psychosis, and dissociation. This has been reported to program psychiatrist who will follow-up with pt. Pt denies any SI/HI, plan, or intent and indicates an ability to maintain safety. Recommending that she continue in IOP to prevent decompensation, maintain safety, stabilize mood, and improve daily functioning. Problem #1 Problem Name:: Anxiety Status of Goals:: Obj #1- Able to identify some warning signs for anxiety, such as restlessness, however continues to struggle with maintaining awareness of times she is experiencing warning signs which has prevented her from applying calming and distress tolerance skills as anxiety increases. Continues to s truggle with identifying specific anxiety triggers though does associate increased stress with more severe sx. Pt has learned various potential skills for calming skills and problem-solving skills to reduce anxiety, though appears to struggle to internalize and apply these skills outside treatment environment. OBI#2- Pt has successfully reduced overall DSM-5 Scores for anxiety since admission. With reported scores dropping from 04/28 to 01/27. Team Recommendations:: Pt reports group counseling continues to be effective, however is struggling to make consistent progress. Recommended continued IOP tx and Individual sessions to focus on developing concrete strategies to manage anxiety and prevent decompensation. Problem #2 Problem Name:: Mood instability Status of Goals:: OBJ #1- Continues to struggle with identification of triggers for mood changes and increased stress; however, is reporting increased ability to practice taking a step back and think before reacting out of agitation. Continues to struggle at times in this regard. Additionally reports using stress ball to manage emotions when becoming overwhelmed. Would benefit from more active application of calming skills. OBJ#2 - Pt has successfully reduced overall DSM-5 Scores for depression since admission and has maintained scores for anger without seeing an influx in sx. Reported scores for depression dropping from 7/8 to 5/8. Team Recommendations:: Will continue in IOP and group counseling. Individual sessions to focus more on mood regulation and strategies to better manage stressors attributing to depression and anger.
[2018-11-12 11:04] VITALS: BP 103/64; PULSE 66; RESP 14
== END 2018-10-15 23:59 ==
LOC: BHIOP 09:00
PROVIDERS: Family Provider Family Medicine; PCP Family Medicine; Referring Provider Psychiatry & Neurology Psychiatry; Visit Provider Psychiatry & Neurology Psychiatry
DX: F41.1 Generalized anxiety disorder (principal); F43.22 Adjustment disorder with anxiety; F32.9 Major depressive disorder, single episode, unspecified; E78.00 Pure hypercholesterolemia, unspecified; F11.20 Opioid dependence, uncomplicated; G43.909 Migraine, unspecified, not intractable, without status migrainosus; G89.29 Other chronic pain; I10 Essential (primary) hypertension; K21.9 Gastro-esophageal reflux disease without esophagitis; R53.82 Chronic fatigue, unspecified; Z81.8 Family history of other mental and behavioral disorders; F60.9 Personality disorder, unspecified; F42.4 Excoriation (skin-picking) disorder
CPT/HCPCS: 90833; 99204; 99214; H0035; H2012; H2020; T1002; 90834; 90837

== ENCOUNTER 2018-10-19 16:01 | Outpatient (RCR) | payer MEDICAID, SELFPAY ==
[2018-07-27 20:36] VITALS: BMI 24.7
--- NOTE | 2018-10-07 10:25 | BH.SGPN.GN ---
Behaviors/Verbalizations/Mental Status: [Client alert and oriented, casually dressed and groomed. Eye contact fair. Motor activity slowed, at times sleeping in group. Speech within normal limits. Affect flat, mood dysthymic. Thoughts linear, logical, no signs of hallucinations or delusions. ] Client Response/Progress/Benefit: [Client responded well to session when able to engage, however often struggled to remain attentive or participate in discussion due to falling asleep at times throughout session. Able to remain mostly engaged in discussion of things that can keep people feeling trapped or stuck in life including; isolation, lack of trust, past experiences, negative perspective, lack of awareness, denial, fear, and low self-esteem. Group discussed the connection between thoughts, emotions, and behaviors as well as how negative thinking can keep a person stuck. Client semi-attentive during psychoeducation on maintenance cycles though struggling to comprehend materials due to inconsistent attentiveness. Client able to identify negative thoughts reinforcing maintenance cycles and kept client feeling trapped. Client shared a negative thought maintaining depression as ?No one cares about me anyway? Client reported this thought has caused increased depression, loneliness, unwillingness to accept help, and feeling like she should ?just give up?. Appeared to benefit some from gaining some awareness when attentive of how negative thoughts reinforce mental health symptoms and keep people stuck. Progress limited given inconsistent engagement in session. Will continue IOP to prevent decompensation, increase emotional regulation, reduce depression, and maintain safety.] Narrative Note: []
--- NOTE | 2018-10-18 10:56 | BH.NOTE ---
BH: Inpatient Note - Notes Behavioral Health Inpatient Note: Per telephone order from Dr. Plata, the following prescription was called into [facility] pharmacy in [place], [place]: Abilify 4mg PO daily, #30, 1 refill Gerardo Madden, MSN, RN
--- NOTE | 2018-10-19 09:06 | BH.SGPN.GN ---
Behaviors/Verbalizations/Mental Status: [Eye contact is fair to good. Motor activity is appropriate. Appearance is casual. Speech is Appropriate. Mood is euthymic, anxious. Affect is congruent. Thoughts are linear and logical. No evidence of psychosis. Reviewed daily check in sheet and no reports of suicidal ideations or intent.] Client Response/Progress/Benefit: [Pt was an active participant in group discussion, providing feedback as others shared and connecting with input provided by group. Pt increased engagement indicates progress in ability to communicate effectively and notes reduced social anxiety. Emotions for today is hopeful. Shared current mental health wins include being able to put a positive spin on her stressors and not fall into negative thinking, as well as planning out landscaping with her son as a way of spending time together. Pt shared that spending time outdoors working on her house is something that makes her feel accomplished. Discussed current stressor as complications related to a dental visit that has caused pt to be in pain and is required to return later in the week for more work to be done. She shared feeling anxious about this but benefitted from group support and suggested self-talk and guided imagery strategies she could incorporate as a means for reducing anxiety. Pt to continue in IOP to continue to promote change behaviors, improve anxiety management skills, and prevent decompensation.] Narrative Note: []
--- NOTE | 2018-10-19 10:12 | BH.SGPN.GN ---
Behaviors/Verbalizations/Mental Status: []Client alert and oriented, casually dressed and groomed. Eye contact good. Motor activity appropriate. Speech- rapid, more vocal than previous groups. Affect constricted, mood euthymic. Thoughts linear, logical, no signs of hallucinations or delusions. Client Response/Progress/Benefit: []Client was an active participant in group discussion and activity. Along with the group, client identified the benefits to communicating emotions which included; getting through every day stressors, preventing worsening physical and mental symptoms, and managing relationships. Group identified the challenges to communicating emotions during stressful situations which included; ?foggy brain,? avoidance, self-sabotage, lack of understanding, and negative thinking. Attentive during psychoeducation on how emotions impact thoughts and behaviors. Client engaged in activity and reported it is hard to be an effective communicator ?when we have different perspectives.? Benefited from insight and awareness of the impact of emotions on communication and the importance of communication in stressful situations. Will continue in IOP to improve coping skills and prevent decompensation.
--- NOTE | 2018-10-19 11:10 | BH.SGPN.GN ---
Behaviors/Verbalizations/Mental Status: []Client alert and oriented, casually dressed. Eye contact good. Motor activity appropriate. Speech within normal limits. Affect congruent, mood dysthymic. Thoughts linear, logical, no signs of hallucinations or delusions. Client Response/Progress/Benefit: []Client was mostly a passive participant in group discussion, taking notes, but providing occasional input. Attentive during psychoeducation on 4 zones of regulation. Client able to identify how she feels in each zone as well as how she acts in each zone. Also able to identify strategies to incorporate to support herself in each zone which included; listening to uplifting music, going outside, making at least one phone call a week, and asking for help. Client shared when she is in the ?yellow zone? or the heightened alertness zone she could benefit from talking it out or going outside. Benefited from group from increased education on zones of regulation or stages of alertness for emotions and healthy coping skills to use for each zone. Narrative Note: []
--- NOTE | 2018-10-20 09:05 | BH.SGPN.GN ---
Behaviors/Verbalizations/Mental Status: []Client alert and oriented, casually dressed. Eye contact good. Motor activity restless. Speech within normal limits. Affect constricted, mood anxious and agitated. Thoughts linear, logical, no signs of hallucinations or delusions. Reviewed client?s symptom tracker, no risk for suicidal ideation, plan, or intent as of 10/20/18. Client Response/Progress/Benefit: []Pt engaged in session as shown by pt providing input and openly processing with the group. Emotion for today is stressed. Pt noted mental health positive as changing her routine and plans to make it to IOP today. Pt identified an additional positive as having her son help her fix the afternoon babysitter yesterday. Pt reported current stressor is her medical problems with recent foot injury and having dental problems. Progress noted with pt able to recognize positives from her day easier compared to when first started IOP. Continued IOP tx recommended to increase utilization of healthy skills, prevent decompensation, and continue to challenge distorted thought patterns. Narrative Note: []
--- NOTE | 2018-10-20 10:25 | BH.SGPN.GN ---
Behaviors/Verbalizations/Mental Status: [Client alert and oriented, casually dressed. Eye contact good. Motor activity WNL, some restlessness. Speech appropriate rate/tone. Affect congruent, mood dysthymic. Thoughts linear, logical, no signs of hallucinations or delusions.?] Client Response/Progress/Benefit: [Pt was attentive and an active participant during group discussion. This was evidenced by taking notes and asking questions throughout. Pt increased engagement indicates progress in willingness to begin internalizing tx materials. Pt discussed with the group potential factors that influence personal perspective and noted ?everyone is different and we all handle things differently?. Shared connecting with participants discussion regarding impact of past experiences or toxic supports on overall outlook in life. Pt benefited from connecting how perspective can impact mental health and wellness. Pt did well to work with group to identify strategies for challenging and improving perspective. Reports that remembering that not everything has to be fixed the same way and that different people need different things will aide in maintaining and promoting a more positive perspective. Pt recommended to continue in IOP tx to promote healthy change behaviors, prevent decompensation, and improve emotion regulation skills. ] Narrative Note: []
--- NOTE | 2018-10-20 12:01 | BH.COMM ---
Communication Note - Communication with Client Communication Note: Pt scheduled to meet with individual therapist following IOP tx on this date. Pt however left IOP following second group as she reported having stomach issues and needed to go home. Pt was unable to therefore attend her individual session as a result and did not reschedule prior to leaving group. Upon learning that pt had left group early, Therapist attempted to reach pt to follow-up and reschedule individual session. Pt unavailable and therapist was not able to leave a message. Will attempt to follow up on next schedled group date, 10/22/18.
--- NOTE | 2018-10-22 09:09 | BH.SGPN.GN ---
Behaviors/Verbalizations/Mental Status: [Eye contact is fair to good. Motor activity is appropriate. Appearance is casual, grooming appropriate. Speech is Appropriate rate and tone. Mood is dysthymic, anxious. Affect is constricted. Thoughts are linear and logical. No evidence of psychosis. Reviewed daily check in sheet and pt denies any active SI, plan, or intent. ] Client Response/Progress/Benefit: [Pt responded well to session, engaged throughout though indicated not wanting to share during group on this date. Noted one positive is that today is race day and she will be able to watch her son compete which always improves her mood and allows for her to keep from isolating. Pt appeared to benefit from support provided by the group. Progress continues to be limited due to inconsistent attendance and tx engagement. Pt recommended continued IOP tx to prevent decompensation, promote application of healthy coping skills, and improve mood stability.] Narrative Note: []
--- NOTE | 2018-10-22 10:10 | BH.SGPN.GN ---
Behaviors/Verbalizations/Mental Status: []Client alert and oriented, casually dressed and groomed. Eye contact good. Motor activity appropriate. Speech within normal limits. Affect flat, mood irritable. Thoughts linear, logical, no signs of hallucinations or delusions. Client Response/Progress/Benefit: []Client was an active participant in group discussion and worksheet activity. Worked together with the group to define a crisis and discuss examples of crisis situations. Client helped the group explore how coping with crisis in unhealthy ways can lead to worsening mental health symptoms. Client shared crisis can lead to ?us spiraling.? Group identified warning signs one could have during a crisis which included; racing thoughts, increased energy, substance use, apathy, uncontrollable worries, losing interest in things, and difficulty concentrating. Client completed her own personal warning signs worksheet. Client identified her top three crisis warning signs to be loss of motivation, isolation, and rapid mood changes. Benefited from group by increasing awareness of crisis and personal warning signs. Progress noted in client?s increased participation in group, but she continues to struggle with mood instability.
--- NOTE | 2018-10-27 09:10 | BH.SGPN.GN ---
Behaviors/Verbalizations/Mental Status: [] Eye contact is good. Motor activity is appropriate. Appearance is casual. Speech is Appropriate. Mood is anxious. Affect is congruent. Thoughts are linear and logical. No evidence of psychosis. Reviewed daily check in sheet and no reports of suicidal ideations or intent. Client Response/Progress/Benefit: [] Pt was an active participant in group discussion. Provided appropriate feedback. Emotion for today is anxious and irritable. Shared that she spent a couple days with her mother at a casino in [place]. Disqualifies the positives as she did not give herself credit for managing her anxiety and irritability during the trip. Was able to manage several stressors including her mother (strained relationship), being around strangers, traveling, and being outside her comfort zone. No panic attacks, no anger outbursts, and overall a positive experience. Appears to be utilizing some skills to manage anxiety. Current stressors which are causing distress are related to medical issues. Benefited from group support, encouragement, discussions, and feedback. Will continue in IOP to prevent decompensation, learn new skills to woods manager anxiety, and decrease isolative/avoidant behaviors. Narrative Note: []
--- NOTE | 2018-10-27 11:21 | BH.SGPN.GN ---
Behaviors/Verbalizations/Mental Status: [Client alert and oriented, casually dressed and appropriately groomed. Eye contact fair to good. Motor activity appropriate. Speech within normal limits. Affect congruent, mood anxious, irritable. Thoughts linear, logical, no signs of hallucinations or delusions.] Client Response/Progress/Benefit: [Client responded well to session, engaged in activity, and providing increased input to discussion which is indicative of progress. Group identified the benefits of addressing stigma which included; increased self-confidence and self-acceptance, improved willingness to ask for help, improved relationships and feeling more supported, and less self-deprecation. Client helped the group identify thoughts and behaviors people engage in that reinforce stigma. Client reported she has struggled with negative self-talk, minimizing her own mental health needs/struggles due to shame/embarrassment, and avoiding talking about mental health which reinforces stigma in pt life. Group brainstormed strategies to combat social and perceived stigma which included; changing personal language used, sharing positive mental health related media, communicating with supports to help them better understand mental health, and increasing psychoeducation of self and others. Client reported she will practice reducing self-deprecating talk and trying being more open with supports about her own mental health concerns as a means to combat stigma. Appeared to benefit from increasing awareness of ways current behaviors may reinforce stigma and how to combat stigma. Will continue IOP tx to further reduce anxiety and irritability, improve mood stability, as well as increase the use of calming skills.] Narrative Note: []
--- NOTE | 2018-10-29 10:15 | BH.SGPN.GN ---
Behaviors/Verbalizations/Mental Status: []Client alert and oriented, casually dressed and groomed. Eye contact good. Motor activity appropriate. Speech within normal limits. Affect constricted, mood anxious. Thoughts linear, logical, no signs of hallucinations or delusions. Client Response/Progress/Benefit: []Client responded well to session, attentive and engaged throughout. Client commented on the quote and how avoidance only increases anxiety. Client able to provide input to different types of anxiety disorders as well as the difference between ?normal? anxiety and anxiety disorders. Client helped the group identify examples of the various ways anxiety manifests and symptoms associated with thoughts, physical symptoms, and safety behaviors. Client gained awareness of her physical symptoms which included: headaches, chest pain, nausea, numbness, and feeling jittery. Client also identified safety behaviors she has engaged in that provide short term relief but increase anxiety over time. Client?s safety behaviors included: reassurance seeking from others, canceling plans, and isolation. Client appeared to benefit from gaining insight to how her anxiety manifests itself. Progress noted as client is more engaged in group and willing to practice coping skills. Client to continue IOP to reduce anxiety and increase interpersonal effectiveness skills.
--- NOTE | 2018-10-29 15:23 | BH.NOTE ---
: Inpatient Note - Notes Behavioral Health Inpatient Note: At the request of therapist, Starla, this RN contacted client to discuss client's concerns about medications and daytime fatigue. Left VM for client to return call today, or will attempt to discuss on Thursday. Gerardo Madden, MSN, RN
--- NOTE | 2018-11-01 09:05 | BH.SGPN.GN ---
Behaviors/Verbalizations/Mental Status: [Eye contact is fair to good. Motor activity is appropriate. Appearance is casual. Speech is Appropriate. Mood is dysthymic, tired, irritable. Affect is congruent. Thoughts are linear and logical. No evidence of psychosis. Reviewed daily check in sheet and no reports of suicidal ideations or intent.] Client Response/Progress/Benefit: [Pt was attentive in group discussion, more engaged and talkative than usual baseline; however, at times struggling with providing sarcastic feedback or off topic remarks when others shared. Emotions for today is tired as pt indicated that she had accidentally taken a Benadryl this morning. Pt current mental health wins include going to her son?s race at the local [place] and watching him win his feature as well as making it into group despite being tired and not wanting to this morning. Pt reflected that she additionally practiced emotion regulation skills at the race as she had been irritated by comments another bystander was making but kept herself from reacting out of aggravation. Pt ability to manage her emotions in that moment display progress in ability to think about potential consequences of reacting on impulse. Current stressor includes ongoing financial expenses related to her son?s racing. Benefited from support provided by the group and being challenged to identify healthy skills she is using. Will continue in IOP to promote change behaviors and consistent skill application, reduce anxiety and prevent decompensation.] Narrative Note: []
--- NOTE | 2018-11-01 11:15 | BH.SGPN.GN ---
Behaviors/Verbalizations/Mental Status: []Pt eye contact good, neatly dressed, motor activity appropriate, speech normal rate and tone, mood anxious and irritable, constricted affect, thoughts linear and intact, no evidence of delusions or hallucinations. Client Response/Progress/Benefit: []Limited participation in group discussion, however was attentive and was seen nodding in agreement with group suggestions. Pt completed a worksheet where she identified her own personal pitfalls. Pt chose to not share her personal pitfalls in large group discussion. Group worked together to identify strategies to overcome personal and general pitfalls which included: setting realistic expectations, positive self-talk, utilizing support system, identifying coping skills that are effective and not effective, reframing, and challenging negative thoughts. Pt identified she will practice setting boundaries by saying no to decrease how many responsibilities she puts on herself. Benefited from identifying personal and general pitfalls and strategies to overcome these pitfalls. Will continue in IOP to improve emotional regulation, increase utilization of healthy coping and prevent decompensation. Narrative Note: []
--- NOTE | 2018-11-01 14:15 | BH.MDN ---
Multi-Disciplinary Note - Note 30-min Individual Time Started:: 10:44 Date: 11/01/18 Purpose of session/treatment goals addressed:: Purpose of this session was to work with pt on addressing concerns regarding ongoing issues with anxiety management and reports of increased safety behaviors via excoriation. Review progress in IOP program and barriers impacting progress. Eye Contact:: Fair, Other - often closing her eyes and appearing to fall asleep mid sentence. Pt reports accidently taking a benadryl with her morning medication Motor Activity:: Restless, Other - going between periods of sleepiness and falling asleep in session to increased restlessness and shaking leg due to anxiety Appearance:: Casual Speech:: Appropriate Mood:: Anxious, Irritable, Dysthymic, Other - fatigued Affect:: Congruent Thoughts:: Linear, Logical, No evidence of hallucinations/delusions noted Staff Interventions:: Therapist asked open-ended and furthering questions to assess pt current symptoms, stressors, and tx goal progress . Utilized motivational interviewing techniques via discrepancy, supportive feedback, and reflective listening to aid in identifying barriers to progress and promote change behaviors. Provided psychoeducation on stress/productivity curve and increased engagement in excoriation behaviors. Normalized pt frustrations and applied strength?s based approach to increase motivation to change. Reviewed pt DSM cross cutting scores to highlight areas of progress and areas for further focus. Client Response:: Pt receptive of session. Willing to discuss current symptoms and areas of progress. She indicates being able to watch her son at the races this weekend and had a personal positive during this. Went on to discuss regulating emotions while someone near her continued to make negative comments that were annoying pt. Pt shared reflecting on potential consequences as helpful in doing so. Pt and therapsit reflected upon areas of progress while in treatment and pt noted decreased depressive symptoms and reduced isolation; however, continues to struggle significantly with managing anxiety sx. She shared that although she has seen decreases in avoidance of situations that make her anxious, she is increasing in unhealthy coping behaviors via skin picking. Patient revealed new scab wounds on her hands and arms from picking and shared that she has not found anything to successfully prevent picking behaviors. Additionally reports that she has been unable to fill her [id number] rx that was prescribed to reduce picking urges. Will coordinate with program nurse to address this concern. Pt reviewed with therapsit skills for managing picking urges that were discussed in previous session such as gloves, healthy distractions, squeezing a stressball, and delaying engaging in the behavior. Pt reports that she has only utilized the stressball technique but feels she cannot take this everywhere, receptive of a keychain stress ball. Therapsit reviewed previous session discussion regarding impact of stress on engagement in anxiety safety behaviors. Pt able to identify importance of self-care in sx management. Self reports that she has not challenged herself to incorporate more self-care into daily routine as she often puts her son and father's needs over her own. Encouraged to find time daily to do at least one thing for herself. Risks/Concerns:: Pt reports increased fatigue due to taking the Benadryl rx for night time by accident this morning. Reports ability to drive home safely. Denies SI, plan, or intent as of this date, 11/01/18 Progress Toward Goals/Plan:: Pt continues to do well in understandng and relating to materials discussed however struggles in actively implementing them on a regular basis which may be impacting tx progress ability. Pt additionally continues to struggle with sleeping problems which impact ability to maintain focus and engaged in both individual and group sessions. Sleep problems may additionally be impacting ability to regulate emotions and retain information discussed in tx. Pt is making progress in level of engagement and positive attitude in group, however is not actively applying skills on her own. Given increases in pt use of safety behaviors via skin picking, ongoing anxiety, and inconsistent skill application, recommendation is to continue in IOP tx. Time Stopped:: 11:09
--- NOTE | 2018-11-02 09:10 | BH.SGPN.GN ---
Behaviors/Verbalizations/Mental Status: [] Eye contact is good. Motor activity is appropriate. Appearance is casual. Speech is Appropriate. Mood is anxious/irritable. Affect is congruent. Thoughts are linear and logical. No evidence of psychosis. Reviewed daily check in sheet and no reports of suicidal ideations or intent. Client Response/Progress/Benefit: [] Pt was an active participant in group discussions. Emotion for today is tired. Reports an increase in skin picking over the past several days. She has scabs on both of her hands. Is seen picking during group. Restless. When asked she cannot identify any recent triggers however after speaking she discussed anxiety and stress related to ex-bf who continue to call her multiple times daily. She admits that she will at times answer the phone and talk with him. Often this causes more distress. Group provided her with some options however pt is not ready to block this person from calling because I'm too nice. She often states that he needs mental health help and she is trying to facilitate this however he does not follow through. Her family and friends are urging her to cut ties however she has not been able to set boundaries with him. Her stressors build up as she reports intense irritability over small things like others not putting tools away in her father's garage. Stated numerous times what others should do. Irritability impacting functioning and relationship with others as well as cauins increased anxiety and skin picking. No progress noted. Benefited from group feedback, support, and encouragement. Will continue in IOP to learn better stress management skills, decrease anxiety/skin picking, and prevent decompensation. Narrative Note: []
--- NOTE | 2018-11-02 10:15 | BH.SGPN.GN ---
Behaviors/Verbalizations/Mental Status: []Pt eye contact good, casually dressed, motor activity appropriate, speech normal rate and tone, mood anxious and irritable, constricted affect, thoughts linear and intact, no evidence of delusions or hallucinations. Client Response/Progress/Benefit: []Pt passive participant as evidenced by pt provided limited input, appeared disengaged at times, however did appear to listen to peers during group discussion. Pt seemed to connect with others comments about the way an individual reacts to a problem can worsen or create problems as shown by pt nodding her head in agreement. Pt agreed with others that she also struggles with taking on other people's problems, which gets in the way of solving her own problems. Pt disengaged during problem solving activity, choosing to not provide ideas or input throughout activity. Pt progress seems to be hindered by pt's lack of follow through with utilizing skill outside treatment environment. Pt seemed to benefit from learning about problem solving method. Pt to continue IOP level of care to decrease negative thinking, increase utilization of healthy coping, and prevent decompensation. Narrative Note: []
--- NOTE | 2018-11-02 11:18 | BH.SGPN.GN ---
Behaviors/Verbalizations/Mental Status: [Eye contact is fair to good, pt continues to struggle with fatigue during group and often falls asleep momentarily. Motor activity is appropriate. Appearance is casual. Speech is Appropriate. Mood is slightly agitated, dysthymic, anxious. Affect is congruent with mood. Thoughts are linear and logical, at times appearing distracted by thoughts. No evidence of psychosis.] Client Response/Progress/Benefit: [ Pt was a mostly active participant in group activity and discussion, providing input and support to the group as they worked to reach their problem-solving goal. Pt appeared to make progress in her ability to challenge self not to become disengaged during activity despite difficulties in participating due to physical limitations. She expressed connecting with input provided by group as they made connections with the activity and potential barriers and supports to personal problem solving. Pt expressed connecting with participants discussion of impatience and negative self-talk as barriers to effective problem-solving, nodding and taking notes throughout. Pt did well to brainstorm with the group strategies for improving personal problem-solving skills and appeared to benefit from identifying and discussing ways to address potential barriers. Expressed that using resources available and challenging thoughts of being a burden as potential supports. Pt continues to display difficulties in active application of skills learned outside of tx setting which may be impacting progress. She is therefore recommended to continue in IOP tx to promote identification and application of healthy coping skills, reduce anxiety and depression, and prevent decompensation. ] Narrative Note: []
--- NOTE | 2018-11-09 09:03 | BH.SGPN.GN ---
Behaviors/Verbalizations/Mental Status: []Eye contact is fair. Motor activity is restless. Appearance is casual. Speech is Appropriate. Mood is anxious and dysthymic. Affect is constricted. Thoughts are linear and logical. No evidence of psychosis. Reviewed daily check in sheet and no reports of suicidal ideations or intent. Client Response/Progress/Benefit: []Pt was engaged in group discussion, providing input and openly processing with the group. Emotion for today is anxious and nervous. Pt initially stated she didn't think she had a positive. Pt stated a stressor this weekend was having to take her dad to the hospital for pain he was experiencing. Pt able to identify a positive out of the stressor is that her dad's condition turned out to be mild. Pt noted another mental health positive as her son planting hunter for her. Pt stated a stressor is her son not wanting to visit his biological dad which pt stated is out of her hands because it is court ordered. Pt struggled with identifying barriers that get in the way of utilization of skills outside treatment environment. Progress noted with pt being able to identify positives without needing therapist encouragement or assistance. Pt progress seems to be hindered by pt struggling with consistent generalization of skills outside treatment environment. Continued IOP tx recommended to increase awareness of distorted thoughts, prevent decompensation, and increase utilization of healthy skills outside treatment environment. Narrative Note: []
--- NOTE | 2018-11-09 09:42 | BH.MDN_ITS ---
Multi-Disciplinary Note - Note 30-min Individual Time Started:: 08:31 Date: 11/09/18 Purpose of session/treatment goals addressed:: The purpose of this session was to address current symptoms, stressors, and medication concerns. Another goal was to address inconsistent application of coping skills for mood regulation and to reduce anxiety and depressive symptoms. Eye Contact:: Good Motor Activity:: Restless Appearance:: Casual Speech:: Appropriate Mood:: Anxious, Irritable, Dysthymic Affect:: Full Thoughts:: Linear, Logical, No evidence of hallucinations/delusions noted Staff Interventions:: Therapist asked open-ended questions and used active to listening to explore pt's current stressors, symptoms, and medication and sleep concerns. Therapist discussed pt concerns regarding medication side effects and clarified dosages prescribed and being taken. Responded empathically and normalized pt emotions regarding frustrations and anxiety about ongoing sleep and medication concerns. Collaborated with program nurse and psychiatrist to continue to address pt concers. Additionally, reinforced the importance of pt following up with referral for a sleep study and discussing outside medications with prescribing physician. Applied Motivational Interviewing techniques via gently challenging pt lack of follow through in utilizing skills to promote healthy change behaviors and identifying barriers in progress. Client Response:: Pt receptive of session and willing to engage throughout. She openly discussed current symptoms and stressors she has been struggling with. Pt continues to report her primary stressor is related to ongoing issues regarding potential side effects of current medications, reporting persistent daytime fatigue and increased occurrence of bizarre behaviors. Pt has previously had difficulties in staying awake and alert throughout group and individual sessions and has fallen asleep momentarily during these times. She additionally reports falling asleep at a gas station when going to refuel her car, as well as while completing tasks around the house. Pt reports she has recently seen an increase in bizarre behaviors during times of increased fatigue. Further elaborated that she has placed items in the fridge that do not belong there, thought that people were in the house or talking to her when no one was around, and woken up outside. Pt behavior changes and inability to manage daytime fatigue is of increasing concern as this could potentially put her at risk. Fatigue additionally continues to impact ability to retain information discussed in the treatment setting and as a result has impacted progress and application of skills for managing mental health symptoms. Patient reports ongoing difficulties in managing anxiety as she continues to become preoccupied with thoughts regarding medication concerns and has had difficulties in remembering coping strategies. Despite limited progress, pt has reported some reduction in excoriation behaviors since beginning to implement using a stress ball keychain to distract her from picking and indicated smaller wounds in areas she typically picks. Open to using mindfulness technique of ?5 senses? to ground herself when recognizing an urge to pick at skin in to reduce mindless engagement in picking behaviors. Pt and therapist discussed her perception of progress in program and concerns regarding self-reports of limited coping skill application. Pt reports being motivated to continue to participate in IOP program and desire to further enhance emotion regulation and anxiety management skills; however, continues to focus on external factors impacting progress rather than addressing the role low levels of consistency may play. Began identifying impact that ongoing medication concerns and sleep issues have had on ability to make significant gains. Pt highly encouraged follow-up with PCP regarding medication concerns as well as attend scheduled psychiatry appointment for this 11/12/18. Additionally, encouraged to follow-up with recommended sleep study. Pt reports she has been unable to do so as her PCP has been out of the office. Will continue to follow- up with pt. Risks/Concerns:: Client reports increased bizarre behaviors and fatigue she believes to be associated with medication side effects and ongoing sleep issues. Pt has been encouraged to follow-up with PCP and is scheduled with psychiatry this Thursday due to not showing for scheduled appointment on previous week. Client additionally previously referred to sleep lab, however reports she has not yet scheduled a sleep study. Reports not being able to reach her PCP due to PCP being out of the office. Therapist will continue to encourage pt to follow- up with recommendations. Pt continues to deny suicidal ideation, plan, and intent as this date, 11/09/18. Progress Toward Goals/Plan:: Progress limited. Pt continues to struggle with inconsistent attendance and poor utilization of healthy coping skills outside treatment environment. She reports that use of her stress ball is helpful when having urges to pick at skin but continues to report limited application of thought challenging or other cognitive behavioral interventions discussed. Pt struggles with relying primarily on medication to reduce symptoms which has impeded ability to further develop consistent use of internal coping skills. Continues to report little desire to expand her socialsupport network which may impact additional progress in management of anxiety and depression as well. Client to continue IOP to prevent further decompensation, increase social supports, and continue medication management. Therapist to follow up with treatment team for continuity of care and medication concerns. Time Stopped:: 08:55
--- NOTE | 2018-11-09 10:05 | BH.SGPN.GN ---
Behaviors/Verbalizations/Mental Status: []Client alert and oriented, casually dressed and groomed. Eye contact good. Motor activity appropriate. Speech within normal limits. Affect flat, mood irritable. Thoughts linear, logical, no signs of hallucinations or delusions. Client Response/Progress/Benefit: []Client attentive and providing input to discussion occasionally. Client reported belief that self-care is ?just getting your hair done.? Client engaged in discussion about the myths of self-care including: self-care is self-indulgent, self-care should be fun, and self-care is just self-hygiene. Client acknowledged the benefits of self-care such as: reduced stress and improved mental health. Client stated setting boundaries is a form of self-care. Client engaged in activity and able to connect how sometimes to make self-care a priority, a person must slow down and set boundaries in other areas of their lives. Client seemed to benefit from increased awareness of the importance of self-care. Progress noted in client?s increased engagement during group, however, she continues to struggle with inconsistent generalization of coping skills to manage symptoms.
--- NOTE | 2018-11-12 10:10 | BH.SGPN.GN ---
Behaviors/Verbalizations/Mental Status: [] Eye contact is good. Motor activity is appropriate. Appearance is causal. Speech is Appropriate. Mood is depressed/irritable. Affect is congruent. Thoughts are linear and logical. No evidence of psychosis. Client Response/Progress/Benefit: [] Pt participated in group activity and discussions. Group worked together to identify benefits to developing goals which included; helps one grow, improves mental health through purpose, gives one something to look forward too or strive for, motivates, keeps one focused, can give a sense of accomplishment, and provides hope for the future. Group also identified barriers to setting and accomplishing goals which included; fear fo failure, past negative experiences, negative people in our lives, negative thoughts, our emotions (depression, stress, anger, anxiety), trouble getting out of our comfort zone, and our perception or outlooks. Attentive during education on developing SMART goals. Benefited from increase awareness of goal-setting methods. Will continue in IOP to prevent decompensation and stabilize anxiety. Narrative Note: []
--- NOTE | 2018-11-12 11:15 | BH.SGPN.GN ---
Behaviors/Verbalizations/Mental Status: [Pt eye contact good, casually dressed, motor activity restless, speech normal rate and sarcastic tone, mood agitated and dysthymic, congruent affect, thoughts linear and logical, no evidence of delusions or hallucinations. ] Client Response/Progress/Benefit: [Pt attentive throughout, however contributed limited input to discussion, at times appearing agitated and providing sarcastic remarks to discussion. Taking notes throughout and nodding as fellow participants reflected on challenge activity. Pt provided some input to reflection, indicating that holding each other accountable when not following instruction aided in the group?s ability to achieve goal. Engaged in creating own mental health SMART goal and did well to ask for assistance when misunderstanding or needing clarification. Pt seemed to benefit from developing ways to overcome potential barriers to reaching this goal. Pt identified goal as staying a alert and engaged in group setting 2-3 days throughout next week. Reports supports for achieving goal as: practicing mindfulness, taking notes, and getting enough sleep the night before. Progress limited due to ongoing issues with focus and ability to retain information discussed due to fatigue and potential medication side effects resulting in fogginess. Pt to continue IOP level care to promote healthy change behaviors, continue to maintain stability, and prevent decompensation. ] Narrative Note: []
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
--- NOTE | 2018-11-16 10:04 | BH.COMM ---
Communication Note - Communication with Client Communication Note: Pt called and left a voicemail cancelling scheduled group appointment for the day as she has been ill. Pt reports ongoing concerns with medications and indicated wanting to follow-up with outpatient psychiatric services rather than inpatient treatment as discussed with program pschiatrist during previous appointment. Pt reports plans to attend IOP group tomorrow, 11/17/18. This therapist will follow-up and discuss tx options with pt.
--- NOTE | 2018-11-17 10:05 | BH.COMM_ITS ---
Communication Note - Communication with Client Communication Note: Pt again called and cancelled individual and group sessions due to illness. This therapist attempted to return call to provide resources on psychiatric options and discuss potential intake appointment for 11/23/18 at [facility] in [place], [place]. Pt unavailable and therapist left a discrete message encouraging follow-up.
== END 2018-11-14 23:59 ==
LOC: BHIOP 16:01
PROVIDERS: Family Provider Family Medicine; PCP Family Medicine; Referring Provider Psychiatry & Neurology Psychiatry; Visit Provider Psychiatry & Neurology Psychiatry
DX: F32.9 Major depressive disorder, single episode, unspecified (principal); F43.22 Adjustment disorder with anxiety; F11.20 Opioid dependence, uncomplicated; E78.00 Pure hypercholesterolemia, unspecified; G43.909 Migraine, unspecified, not intractable, without status migrainosus; G89.29 Other chronic pain; I10 Essential (primary) hypertension; K21.9 Gastro-esophageal reflux disease without esophagitis; M54.5 Low back pain
CPT/HCPCS: 90836; 99214; H0035; H2012; H2020; 90832; 90834

== ENCOUNTER 2018-11-23 09:00 | Outpatient (RCR) | payer MEDICAID, SELFPAY ==
[2018-07-27 20:36] VITALS: BMI 24.7
--- NOTE | 2018-11-19 15:49 | BH.COMM ---
Communication Note - Communication with Client Communication Note: Attempted to contact pt to follow-up regarding psychiatry as well as to schedule appointments for IOP for the following week. Pt unable to be reached and a discrete message was left requesting she call back.
--- NOTE | 2018-11-23 09:08 | BH.SGPN.GN ---
Behaviors/Verbalizations/Mental Status: []Client alert and oriented, disheveled appearance. Eye contact good. Motor activity appropriate. Speech within normal limits. Affect constricted, mood anxious, irritable. Thoughts linear, logical, no signs of hallucinations or delusions. Reviewed client?s symptom tracker, no risk for suicidal ideation, plan, or intent as of 11/23/18. Client Response/Progress/Benefit: []Client responded well to session, short in her responses, but receptive to follow up questions. Client reports feeling ?nervous? today because client has to get a nerve study done. Client stated medical appointments are an ongoing trigger for client?s anxiety and irritability. Client reports increased awareness of what coping skills she can use to prevent panic attacks. Client?s current positives include spending time with her son at her town?s parade, not lashing out at the doctor?s office this week, and getting the cast off her foot. Appeared to benefit from reflecting on emotional regulation skills. Progress noted in client?s report of using coping skills to prevent an anger outburst at the doctor?s office. However, client continues to report mood instability and medication issues that impact mental health symptoms.?
--- NOTE | 2018-11-23 11:10 | BH.SGPN.GN ---
Behaviors/Verbalizations/Mental Status: [Client alert and oriented, casually dressed and groomed. Eye contact fair to good. Motor activity appropriate. Speech within normal limits. Affect congruent, mood dysthymic, irritable. Thoughts linear, logical, no signs of hallucinations or delusions. ] Client Response/Progress/Benefit: [Client responded well to session, attentive and engaged during small group session. A times pt appearing to struggle with attentiveness due to falling asleep throughout discussion. Did well to respond to being gently challenged on distortions used during discussion. Group discussed the mental health benefits of recognizing strengths which included; improved self-esteem, better relationships, and being able to better problem solve, as well as willingness to ask for help. Group identified the barriers that have prevented them from acknowledging their strengths and successes. These barriers included; negative thoughts, feeling like a burden, negative outlook, lack of awareness of strengths. Group identified strategies to overcome barriers that prevent them from seeing strengths. These strategies included; keeping track of progress, practicing using affirmations, and reaching out to supports to challenge perspective when needed. Client initially struggling to identify strengths, though able to identify personal strengths she possesses with assistance, which included; resilience, ability to advocate for self, sense of humor, and care for her family. Appeared to benefit from recognizing personal strengths and identifying strategies to overcome barriers. Will continue IOP tx to improve mood stability, further increase healthy coping skills for managing depression and anxiety, and prevent decompensation. ] Narrative Note: []
--- NOTE | 2018-11-25 09:40 | BH.COMM ---
Communication Note - Communication with Client Communication Note: Pt scheduled to meet with this therapist prior to IOP group on this date however Pt did not show for session or IOP group. Pt did not answer when therapist attempted to follow-up. A message was left encouraging pt to return the call to reschedule individual and group sessions.
--- NOTE | 2018-11-26 08:17 | BH.COMM_ITS ---
Communication Note - Communication with Client Communication Note: Pt not scheduled for group on this date, however arrived to [facility] program expressing several concerns regarding medications. Pt is currently prescribed 36 medications, a majority of which are prescribed by her outpatient primary care physician (PCP). Pt encouraged to follow-up with PCP regarding non- psychiatric medication concerns. Aided in coordination of transportation from [facility] program to [place] for PCP appt. following group for the day. Pt encouraged to attend group on Thursday to meet with program psychiatrist regarding concerns as well. Pt not appearing to be at immediate risk and willing to go to ED should she feel unable to maintain safety. Denies any suicidal ideation, plan, or intent as of this date, 11/26/18. Pt to follow-up.
--- NOTE | 2018-11-26 09:06 | BH.SGPN.GN ---
Behaviors/Verbalizations/Mental Status: []Client alert and oriented, neatly dressed and groomed. Eye contact good. Motor activity appropriate. Speech within normal limits. Affect flat, mood irritable, depressed. Thoughts linear, logical, no signs of hallucinations or delusions. Reviewed client?s symptom tracker, no risk for suicidal ideation, plan, or intent as of 11/26/18. Client Response/Progress/Benefit: []Client responded well to session, attentive throughout session. Client reports feeling ?nervous and dizzy? today. Client reported she continues to experience issues with her medications, physical health, and sleep. Client shared she meets with the psychiatrist today which client hopes will provide some answers. Client able to identify mental health wins today which included advocating for herself to her medical providers and engaging in self-care by showering. Client recognized that engaging in self-care can help client manage nervousness. Client appeared to benefit from reflecting on things she can do to manage stress. Progress noted as client reports engaging in self-care, but client continues to struggle with mood instability and self-report of medication issues. Will continue tx to prevent decompensation and maintain safety.
--- NOTE | 2018-11-26 10:15 | BH.SGPN.GN ---
Behaviors/Verbalizations/Mental Status: []Client alert and oriented, disheveled appearance. Eye contact good. Motor activity appropriate. Speech within normal limits. Affect constricted, mood anxious. Thoughts linear, logical, no signs of hallucinations or delusions. Client Response/Progress/Benefit: []Client responded well to session, contributing to discussion. Client indicated connecting with the topic of cognitive distortions and stated, ?my thoughts can cause more skin picking.? Client also reported that she has struggled with all or nothing thoughts such as ?either I do it right, or I don?t do it at all.? Client shared negative thoughts impact one?s emotions and behaviors. Client did well to work with the group on defining the various types of cognitive distortions and their impact on mental health. Client reported connecting with distortions of black and white thinking, catastrophizing, labeling, over-generalizing, and mental filtering. Appeared to benefit from increasing awareness of cognitive distortions and how they can impact emotions and behaviors. Client continues to struggle with mood instability, sleep issues, and erratic behaviors. Will continue IOP to prevent further decompensation and maintain safety.
--- NOTE | 2018-11-29 16:08 | BH.COMM ---
Communication Note - Communication with Client Communication Note: Pt not scheduled for group for the week due to not completing the sign-up sheet. This therapist contacted pt to determine when she plans to attend group as well as schedule individual session for the week. Pt reports planning to come in ., , & . for group as well as arrive early on Thursday to meet for individual. Pt informed that if she wants to be seen by psychiatry to address ongoing medication concerns she needs to attend group on Thursday, 12/01. Pt indicates understanding and is on board with plan. Reports she has followed through with scheduling an intake appointment to establish outpatient psychiatry with [facility] in [place] on 12/14/18.
--- NOTE | 2018-11-30 09:00 | BH.SGPN.GN ---
Behaviors/Verbalizations/Mental Status: [] Eye contact is good. Motor activity is appropriate. Appearance is casual. Speech is Appropriate. Mood is irritable. Affect is congruent. Thoughts are linear and logical. No evidence of psychosis. Reviewed daily check in sheet and no reports of suicidal ideations or intent. Client Response/Progress/Benefit: [] Pt participated in group discussion however declined to check-in. Irritable during the sessions and often provided feedback that was not productive. Since she did not check-in its unclear what she is irritable about however mentioned medications again being a stressors several times. Pt did have an individual session prior to group. Difficult to redirect and needed reminders not to have conversations with peer while other group members were talking. Did mention a positive that she did not go off on her dentist's receptionist clerk as they declined to see her as she was late. States 3 months ago I would have gotten really upset and told her off. Some progress noted in anger mgmt and thought stopping. Limited progress noted. Did not benefit from group today due to irritability. Will continue in IOP to continue to address medication concerns, prevent decompensation, and link with aftercare. Narrative Note: []
--- NOTE | 2018-11-30 10:47 | BH.MDN ---
Multi-Disciplinary Note - Note 45-min Individual Time Started:: 08:29 Date: 11/30/18 Purpose of session/treatment goals addressed:: The purpose of this session was to address current symptoms, stressors, and ongoing medical concerns. Other goals were to discuss maintaining progress, aftercare planning and discharge, as well as potential healthy supports. Eye Contact:: Good, Other - tearful on several occassions while discussing ongoing medical concerns Motor Activity:: Appropriate Appearance:: Casual Speech:: Appropriate Mood:: Anxious, Depressed Affect:: Congruent Thoughts:: Linear, Logical - pt appearing more alert and on topic compared to presentation throughout the past week., No evidence of hallucinations/delusions noted Staff Interventions:: Therapist used active listening and open-ended questions to explore current symptoms, stressors, and recent primary care visit aimed at addressing medication concerns. Therapist helped pt reframe negative thoughts regarding medical concerns by challenging pt to look at different perspectives. Therapist normalized pt?s recent intrusive thoughts and fears by providing empathic responses and aiding pt in using Problem Solving techniques to identify options for managing current symptoms. Therapist and pt reviewed identified options and potential social support for aftercare. Therapist discussed pt progress in program as well as plans for discharge and progress. Provided pt with resources for ongoing mental health support groups. Client Response:: Pt willing to arrive to group early to meet with therapist and responded well to session. Stated that she is feeling more like herself today compared to the previous week in which she described being ?out of it?. Pt went on to discuss feeling as though she had ?lost days? as a result of her physical and mental health issues impacting memory and cognition. Pt indicated difficulties in recalling details of events occurring over past several days, including calling to talk to this therapist in crisis due to ongoing medication concerns. However, she did well to recall main points of recent events. Pt indicated that she fell asleep at the gas station last Thursday, which is the second time in a month, and was awoken by an attendant. She reports ongoing issues with falling asleep during the day at inappropriate times as well as increased issues with fogginess. Pt discussed going to the ED regarding these concerns and was told all tests came back negative. Has an appointment with sleep lab on 12/13/18 to further assess. Pt then returned to ED the next day as she noted experiencing uncontrollable shakiness and confusion. Reports being informed that this is likely due to multiple medications pt is taking. Pt continues to resist decreasing use of any current medications despite ongoing side effects. Pt and therapist discussed impact current medication side effects have had on managing mental health symptoms and use of multiple distorted thinking patterns. Pt continues to struggle with utilizing internal coping skills as she primarily relies on medication to manage mental health symptoms and often escalates when medication effectiveness decreases. Pt indicates feeling the IOP program has been helpful and that her mood has improved, however continues to struggle with negative thinking, distress tolerance, and emotion regulation. Continues to reinforce negative maintenance cycles for depression and anxiety with distorted thoughts related to ?I?m never going to get help from anyone? and ?Great more negative diagnoses? when discussing upcoming doctor?s appointments. With help from therapist, pt was able to recognize the impact of these distorted thoughts on mental health and begin to look at the situation in a different perspective. Identified that having the information from the doctor at least gives her something to prepare for or role out rather than not knowing anything about her current medical symptoms. Pt acknowledges that she would benefit from continuing with comprehensive care following discharge from IOP program this week and discussed knowing importance of following through with psychiatry services. Shared feeling she would benefit from mental health treatment more if her medications were better managed and discussed having a psychiatry appointment scheduled with [facility] in [place]. Pt given a comprehensive list of mental health support groups and programs through [facility] to follow-up with. Risks/Concerns:: Client denies any suicidal ideations, plan, or intent as of 11/30/18. Progress Toward Goals/Plan:: Client's progress continues to be variable based on a daily/weekly basis as her moods are often determined by situational experiences. Last week client reported increased anxiety symptoms and medication side effects causing incoherence, increased fatigue, and poor memory. During that time she called on several occasions experiencing increased anxiety and crying spells related to medication concerns. This week, client reports improved mood and functioning due to decreased physical symptoms and having aftercare appointments established. Client's ability to remain focused and engaged in individual session is improved as she was willing to meet with therapist, receptive of discussing alternative ways to look at her situation and followed through with scheduling psychiatry assessment for ongoing medication management on an outpatient basis. Client recognizes she can benefit from increased consistency of mood stability by attending counseling on regular basis however continues to struggle in doing so due to medical issues as well as lack of motivation. She reports willingness to participate in mental health group therapy on an outpatient basis if she is able to attend less frequently than is required by IOP guidelines. Given referral information for various outpatient support groups in the area such as [facility], the [facility] group, and various groups provided by [facility] in [place]. Client continues to report difficulties with finding supports outside of her parents who are aging and have difficulties providing the assistance she needs. Client to continue IOP to promote mood stability, discuss medication concerns with program psychiatrist, and finalize discharge plans prior to discharging at the end of the week. Time Stopped:: 09:07
--- NOTE | 2018-12-01 08:46 | BH.AFTERPLAN ---
Aftercare Plan - Demographics Treatment End Date:: 12/01/18 Psychiatrist:: Katie Valdivia Psychiatrist Office #:: [phone] [facility] Therapist:: Starla Larkin Therapist Phone #:: [phone] - Medications Home Medications: Home Medications MedroxyPROGESTERone [Depo-Provera] 150 mg IM .[id number] 03/09/15 Gabapentin [Neurontin] 600 mg PO TID 08/09/16 Metoprolol Tartrate 25 mg PO BID 11/02/16 Dicyclomine HCl [Bentyl] 20 mg PO 4X/DAY 04/03/17 Linaclotide [Linzess] 290 mcg PO DAILY 04/03/17 Lisinopril [Prinivil] 10 mg PO DAILY 04/03/17 Atorvastatin Calcium [Lipitor] 20 mg PO QHS 10/13/17 Nortriptyline HCl [Pamelor] 100 mg PO QHS 10/13/17 Omeprazole 40 mg PO DAILY #30 capsule. 10/15/17 Buprenorphine 1 each TD QWEEK 06/18/18 Baclofen [Lioresal] 10 mg PO TID #0 07/27/18 Diclofenac Sodium [Voltaren] 1 gm TOPICAL DAILY 07/27/18 Hydroxyzine Pamoate [Vistaril] 50 mg PO BID 07/27/18 Aripiprazole [Abilify] 2 mg PO DAILY 11/12/18 Duloxetine Hcl [Cymbalta] 60 mg PO DAILY 11/12/18 traZODone [Desyrel] 100 mg PO QHS 11/12/18 Topiramate 25 mg PO DAILY 11/24/18 - Plan Details Progress/Aftercare Plan Details:: Brielle, since starting the IOP there have been highs and lows but ultimately you have continued to persist. Throughout the program, you have faced numerous stressors regarding both your physical and mental health without allowing for those stressors to keep you from continuing to reach out or cause you to give up. There have been setbacks along the way and times in which you have felt hopeless or overwhelmed, yet, each time you have worked through those difficulties and reminded yourself of the importance of asking for help. Brielle you have shown resilience and seen success in managing stress when able to actively practice healthy coping skills. You have discussed improvements in your ability to manage skin picking urges, continued growth in ability to better regulate your emotions by taking a step back and thinking about ways to respond rather than reacting based on initial emotional response. Brielle, you have also learned healthy coping skills to manage warning signs and triggers for anxiety, anger, and depression. Remember, to continue to work on application of these skills and remind yourself that your mental health is a priority. There will be bad and difficult days, but as we have discussed, it is how you look at those days that is most important. Ask yourself, can this be an opportunity for growth and guidance rather than something that holds me back. Brielle is established with Isa Hurst at [facility] for individual counseling and has [facility] [place] on 12/14/[facility] for ongoing psychiatry. Brielle was also provided information for [facility] and groups provided by [facility]. Strategies for Success:: 1. Practice, practice, practice! Keep up trying to use healthy coping skills in times of stress - such as using the stress ball, positive self-talk, and taking deep breathes. 2. Remember to pay attention to your warning signs and triggers! You can?t use the coping skills effectively if you aren?t aware of when you need them. Remember that your family can also help you to identify warning signs when they notice them. 3. Consistency! Stay consistent with appointments, medication compliance, and practicing healthy coping skills. Remember to take your medication as prescribed and let your psychiatrist and PCP know when you are experiencing side effects. 4. Maintain a healthy routine and schedule. Try [facility] or one of the groups that [facility] provides, this can keep the skills you have learned fresh in your mind! - Appointments Appointments/Referrals to Other Services:: 1. Follow up with Isa at [facility] for ongoing support and regular counseling. 2. Follow up with [facility] for psychiatry, appointment is scheduled for 12/14/18. Remember to ask about the groups they offer for additional support. 3. [facility] encouraged to increase social support and healthy coping skills.
--- NOTE | 2018-12-01 09:01 | BH.SGPN.GN ---
Behaviors/Verbalizations/Mental Status: [Eye contact is good. Motor activity is appropriate. Appearance is casual, grooming appropriate. Speech is Appropriate rate and tone. Mood is anxious. Affect is congruent. Thoughts are linear and logical. No evidence of psychosis. Reviewed daily check in sheet and pt denies any active SI, plan, or intent. ] Client Response/Progress/Benefit: [Pt responded well to session, engaged throughout and open to processing with the group. Pt indicated current emotion as ?anxious? and discussed that this is due to trying to prepare for upcoming dental appointment. Pt indicated this as current stressor due to disliking the doctors and dentist offices, however reports a win as reaching out to her father and asking him to meet her for the appointment. Additional win identified as recognizing when she is beginning to become anxious or agitated and reminding herself of small positives to prevent further escalation. Pt progress in self-report of increasing consistency of coping skill application, as well as improved engagement in tx. Pt recommended continued IOP tx to prevent decompensation, and promote ongoing application of healthy coping skills, and improve mood stability.] Narrative Note: []
--- NOTE | 2018-12-01 09:29 | PCM.BH.PN_ITS ---
Progress Note Progress Note: Chief complaint: The patient is a 38-year-old female who is an active participant in the intensive outpatient program at [facility]. She has a long history of depression, anxiety, excoriation disorder, opiate addiction, personality vulnerabilities,. 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 Patient also has had since 1999 various symptoms of derealization/dissociation. History of present illness: Patient states that she is not doing good. She states that in the last week or 2 she has had issues with falling asleep suddenly. She says she fell asleep at a gas station last week and had to be brought to the emergency room while sitting in the car. In addition she was brought to the emergency room because she fell asleep almost suddenly at her father's house while eating corn. This was witnessed by her son and her father. She states also that she feels tired and not rested all day long. She states that she is not sleeping at night well at all. She says she wakes up all night and she has trouble getting to sleep. Her mood she describes as on edge. She tells me that she is still depressed but not as severe and at times is hopeful that may be she will get better. However,I discussed with her that on her DSM-V self rating scale today she had documented that she was severely depressed and hopeless. She explains this by saying that some time she has an air feelings kind of very throughout the day. She states also that last week for about a 3- day. She had a dissociative episode where she does not remember anything she did for 3 days. He said she fell once last week but no loss of consciousness. And she had no injuries from falling. She still describes episodes of brain fog. She she denies any thoughts of self-harm, suicidal ideation, or homicidal ideation. She continues to have problems with back pain and problems with her feet and is very demoralized by this. She was recently denied disability and this is also been stressful. Is that the intensive outpatient program has been helpful but on speaking with the staff they do not feel that she has been using the coping skills as well as she might be. She continues to have problems with thumb picking and scratching at her skin but is now taking the N acetylcysteine for this. I had a long discussion with her on continuing weaning her meds and she is agreeable to do this. I discussed with her that outpatient weaning would probably be the most beneficial since the wean of her medication has to be done slowly. In addition if she is in the hospital when we wean then and they discharge her for 5 days later the complete effects of weaning the meds will not be known at the time of discharge. Current psych medications: Nortriptyline 100 mg p.o. nightly, Cymbalta 60 mg p.o. daily Vistaril 100 mg up to twice daily but she says she has been taking less of this lately, Abilify 2 mg daily, she stopped the Benadryl. She is still taking the Topamax 25 mg at bedtime for migraines. The gabapentin she takes for pain used to be 600 mg p.o. 3 times a day but after discussion with her primary care provider she is only taking her gabapentin 1-2 times a day now. General review of systems: She complains of tremors still, excessive sedation, poor energy level, pain in various areas especially back and feet. Objective: Patient is a casually dressed and groomed 38-year-old female who appears normal for stated age. She is cooperative during the interview. She has no psychomotor agitation or retardation. Her eye contact is good. Her speech is normal rate and rhythm, no pressure. Her thought processes organized and goal-directed. Her thought content: She has no evidence of suicidal or homicidal ideation. She has no evidence of hallucinations or delusions. Her she her concentration she describes as impaired but she coped well during the interview by taking notes. Is depressed. Affect is euthymic during the interview. Impulsivity is moderate. Judgment is intact. Insight quite limited. Diagnosis [place] I depressive disorder unspecified: Generalized anxiety disorder: Excoriation disorder: Dissociative disorder to be ruled out: History of opiate use disorder [place] II: Personality disorder unspecified [place] III: Hypertension, GERD, chronic back pain, foot pain and skin issues, migraine headaches, chronic fatigue. Plan:I am continuing the patient's current medications for psychiatric treatment except I am decreasing the nortriptyline to 50 mg daily. The patient currently takes two 50 mg capsules and she will now take one 50 mg capsule of nortriptyline at bedtime. The hope is that maybe her tremors will decrease if they are due to serotonin overload. I discussed with the patient that the Cymbalta is doing much of the same things the nortriptyline should do. Risks options and possible complications and side effects of the medication regimen and the medication interactions were discussed with the patient and she understands and accepts these. She understands it will take a slow weaning of her medication to really figure out what symptoms are caused by what possible interactions. She is going to continue in the intensive outpatient program for 2-3 more weeks as we slowly wean a few of her medications. In addition, the patient has a sleep study scheduled December 14 which is very important in working out a possible cause for her excessive daytime sleepiness sleepiness and falling asleep suddenly during the day. Patient will continue to follow-up with her outpatient medical and other psychiatric providers.
--- NOTE | 2018-12-02 09:05 | BH.SGPN.GN ---
Behaviors/Verbalizations/Mental Status: [] Eye contact is good. Motor activity is appropriate. Appearance is casual. Speech is Appropriate. Mood is anxious. Affect is congruent. Thoughts are linear and logical. No evidence of psychosis. Reviewed daily check in sheet and no reports of suicidal ideations or intent. Client Response/Progress/Benefit: [] Pt was an active participant in group discussion. Pt was active and engaged during the group session. Provided positive feedback to peers. Emotion for today is anxious. She shared several stressful moments yesterday including being at the dentist for 4 hours. Reports that her anxiety and anger were challenging to manage however she identified several skills that she actually used. Reports thought-stopping, reframing, mindfulness, distraction, and getting up and walking around. She actually reviewed the costs vs benefits of going off rather than just reacting impulsively. Upon arriving home she walked into some responsibilities and rather than push through them despite being irritable she choose to complete some self-care. Stated I realized if I did those things I would blow up. Awareness and insight and know her limits and pulling back. Progress noted per pt report. Group praised her for her efforts. She praised the program stating 2 months ago yesterday would have gone horribly wrong. Benefited from group feedback, encouragement, and support. Will continue in IOP to prevent decompensation and to stabilize medications before discharge. Narrative Note: []
--- NOTE | 2018-12-02 10:08 | BH.SGPN.GN ---
Behaviors/Verbalizations/Mental Status: []Client alert and oriented, neatly dressed and groomed. Eye contact good. Motor activity appropriate. Speech within normal limits. Affect congruent, mood euthymic, playful. Thoughts linear, logical, no signs of hallucinations or delusions. Client Response/Progress/Benefit: []Client participated in group discussion. Client reported it is important to cope with conflict ?because there will always be conflict.? Client provided an example of how she recently managed her anger which helped her avoid conflict. Worked together with the group to define and identify differences between internal and external conflict. Group identified that if one does not address conflict, or if one uses unhealthy ways to manage conflict, it can lead to more conflict. Client worked with group to identify barriers to overcoming conflict which included; frustration, anxiety, fear of unknown, defensiveness, and difficulty articulating. Attentive during psychoeducation on different conflict styles such as avoiding, accommodating, competing, and collaborative. Started to review benefits and drawbacks to each style and will continue in the following group. Benefited as she was able to identify and define conflict as well as increase awareness of how conflict style impacts mental health. Progress noted as client reports coping with her anger in a healthy way at the dentist. Will continue IOP to promote medication stability and increase emotional regulation.
--- NOTE | 2018-12-02 11:11 | BH.SGPN.GN ---
Behaviors/Verbalizations/Mental Status: [Client alert and oriented, casually dressed and groomed. Eye contact good. Motor activity appropriate. Speech within normal limits. Affect congruent, mood euthymic, anxious, irritable. Thoughts linear, logical, no signs of hallucinations or delusions] Client Response/Progress/Benefit: [ Client responded well to session, attentive and increasingly engaged throughout. Participated in the group discussion to define and identify differences between internal and external conflict. Client shared she often avoids external conflict as it makes her anxious and uncomfortable, but then results in pt later exploding when she cannot keep her emotions pushed down any longer. Group identified the benefits of addressing conflict as improved relationships, feeling empowered, and better mental health. Group completed a challenge activity in which they were faced with potential conflict situations. They did well to relate barriers faced in activity with the potential barriers to facing conflict in own life. Group identified and discussed consequences of not addressing conflict in healthy ways which included: guilt, increased relationship tension, fear and anxiety, and needs not getting met. Client shared that she often struggles to confront conflict with her son and can revert back to passive-aggressive approaches which only further creates conflict. Benefited as she was able to identify own conflict style, as well as increase awareness of how conflict style impacts mental health. Will continue IOP tx to promote the use of healthy coping skills, reduce anxiety, and to improve daily functioning.] Narrative Note: []
--- NOTE | 2018-12-07 09:10 | BH.SGPN.GN ---
Behaviors/Verbalizations/Mental Status: [] Eye contact is good. Motor activity is appropriate. Appearance is casual. Speech is Appropriate. Mood is anxious. Affect is congruent. Thoughts are linear and logical. No evidence of psychosis. Reviewed daily check in sheet and no reports of suicidal ideations or intent. Client Response/Progress/Benefit: [] Pt was an active participant in group discussion. Emotion for today is anxious. Had a brief check-in. Continues to report self-care at times. Believes she is managing her emotions better than in the past. No reported dissociative epsiodes or memory lapses noted over the weekend or this week. No reported concerns with sleep. Provided feedback to peers with some redirection from therapist. Benefited from group support and encouragement. Progress noted. Will continue in IOP to prevent decompensation and monitor mood during medication titration. Pt is linked with mental health aftercare appointment next week as well as sleep study. Narrative Note: []
--- NOTE | 2018-12-07 10:10 | BH.SGPN.GN ---
Behaviors/Verbalizations/Mental Status: []Client alert and oriented, casually dressed and groomed. Eye contact good. Motor activity appropriate. Speech within normal limits. Affect constricted, mood euthymic. Thoughts linear, logical, no signs of hallucinations or delusions. Client Response/Progress/Benefit: []Client responded well to session, was positively contributing to discussion. Client connected with the quote and agree with peers that growth does not happen by chance. Client shared that life ?always has positives and negatives? and to manage, one cannot only rely on one coping skill. Client, along with other group members, provided input and suggestions when identifying what internal/external forces are and the impact that these forces have on their mental health. Examples of negative forces included; high expectations, negative thoughts, mental health symptoms, health issues, and fear. Client identified reaching out to supports, routine, taking medication, and self-talk as positive forces. The group started, but they did not finish the activity. Benefited from increased awareness of how different positive and negative forces impact mental health. Client showed progress in her increased engagement during group, but she continues to struggle with generalizing coping skills outside of IOP. Will continue tx to prevent decompensation and increase emotional regulation.
--- NOTE | 2018-12-07 11:08 | BH.SGPN.GN ---
Behaviors/Verbalizations/Mental Status: [Client alert and oriented, casually dressed and groomed. Eye contact good. Motor activity appropriate. Speech within normal limits. Affect congruent and mood euthymic, irritable. Thoughts linear, logical, no signs of hallucinations or delusions.] Client Response/Progress/Benefit: [Client willing to participate in activity, provided some input throughout discussion though mostly passive participant. Client completed reflection worksheet identifying positive and negative forces impacting life and mental wellness. Client identified positive forces to include: family, therapy, willingness to ask for help, resilience, creative problem solving. Client indicated negative forces include: anxiety, self-doubt, toxic supports, finances. Client reported she would benefit from continued focus on improving ability to challenge negative perspective and see the positive side of things. Reports continuing to struggle in this area. Client seemed to benefit from increased awareness of personal positive and negative forces in life and impact they have on mental health and wellness. Client to continue IOP level of care to maintain gains, continue to promote consistent skill application and healthy change behaviors, and prevent decompensation.] Narrative Note: []
--- NOTE | 2018-12-08 09:31 | PCM.BH.PN_ITS ---
Progress Note Progress Note: Chief Complaint: Patient is a 38-year-old female who is in the IOP program at [facility]. Being seen today for follow-up on weaning her nortriptyline. [] History of Present Illness/Interim History: [Brielle states that she is feeling better. She decreased her nortriptyline from 100 mg at bedtime down to 50 mg at bedtime and states that over the last week she has been feeling better. He says that she has had no dissociation episodes since decreasing her nortriptyline. She feels much less sleepy and her tremors are much decreased. She has been requiring less Bentyl and she has been using less baclofen for her back spasms also. Describes her mood as still kind of on edge. She is still depressed but not as bad as before. She denies any thoughts of suicide, homicide, self-harm. She continues to experience problems with her back and feet. She feels the intensive outpatient program is helpful for her and feels that she may be able to start using to learn her skills.] Current Psychiatric Medications: [Now taking nortriptyline 50 mg p.o. nightly and her usual doses of Cymbalta, Vistaril, Abilify, Topamax, and gabapentin.] Review of Symptoms: [Negative except as noted in present illness] Mental Status Examination: [She is casually dressed and groomed with good hygiene. Her mood is depressed. Her affect is full and more consistent with euthymia. Her eye contact is good and her speech is normal rate and rhythm, fluent, no pressure. Her concentration is improved. Her thought process is organized and goal-directed. Her thought content shows no evidence of hallucinations or delusions. No evidence of suicidal or homicidal ideation. Insight is improving especially is related to problems that can occur with polypharmacy.] Diagnoses: [] [place] I: [Depressive disorder,unspecified], generalized anxiety disorder, excoriation disorder, history of opiate use disorder [place] II: Personality disorder unspecified [] [place] III: Retention, chronic back pain, foot pain and skin issues, migraine headaches, [] Plan: I am not making any medication changes today. Is only been 1 week since she decreased her dose and the patient is reports feeling good. The nortriptyline may be helpful for her pain, sleep, and anxiety and I just felt she was having symptoms of 2 higher dose before. We will continue to observe her and I will see her in 1 to 2 weeks. The risks options possible complications and side effects of medication regimen were discussed and she understands and accepts these. She will continue to try to use her skills in the intensive outpatient program as she feels she is getting better at this. The patient still would but benefit from the structure, group therapy, and education in the IOP program. She will continue to follow-up with her outpatient medical and other providers also. []
--- NOTE | 2018-12-09 09:10 | BH.SGPN.GN ---
Behaviors/Verbalizations/Mental Status: [] Eye contact is good. Motor activity is appropriate. Appearance is casual. Speech is Appropriate. Mood is anxious. Affect is congruent. Thoughts are linear and logical. No evidence of psychosis. Reviewed daily check in sheet and no reports of suicidal ideations or intent. Client Response/Progress/Benefit: [] Narrative Note: []
--- NOTE | 2018-12-09 11:17 | BH.SGPN.GN ---
Behaviors/Verbalizations/Mental Status: [Eye contact is fair to good. Motor activity is appropriate. Appearance is casual and comfortable. Speech is Appropriate, at times interrupting others to provide input to discussion. Mood is euthymic, agitated. Affect is congruent. Thoughts are linear and logical. No evidence of psychosis.] Client Response/Progress/Benefit: [Client attentive, engaged during discussion and activity. Contributed to discussion on how the group was successful in the activity because they were encouraging and had growth-mindset thoughts. Client did well to apply cognitive restructuring to reframe previously identified fixed thought. Pt transformed fixed thought from previous group to a growth thought of ?I have no support, no one cares? to ?I can call a counselor and begin to build supports one day at a time?. Client participated as the group brainstormed strategies to promote growth-mindset thinking. Client selected the strategy of practicing taking small baby steps towards goal daily to improve his growth-mindset thinking. Benefitted from discussing benefits of growth mindset and brainstorming strategies for prompting growth-mindset. Client displaying progress as client reports increased positivity and has been practicing healthy coping skills. Will continue IOP tx to prevent decompensation and improve mood stability.] Narrative Note: []
--- NOTE | 2018-12-09 13:09 | BH.MDN_ITS ---
Multi-Disciplinary Note - Note 45-min Individual Time Started:: 08:37 Date: 12/09/18 Purpose of session/treatment goals addressed:: Purpose of this session was to assess current symptoms and stress management, and application of skills learned. Another purpose was to review progress in IOP level of care and identify areas of focus/small goals for remaining duration of admission. Eye Contact:: Good Motor Activity:: Appropriate Appearance:: Casual Speech:: Appropriate Mood:: Anxious, Dysthymic Affect:: Congruent Thoughts:: Linear, Logical, No evidence of hallucinations/delusions noted Staff Interventions:: Therapist asked open ended and furthering questions to elicit additional information regarding pt current symptoms, stressors, and perception of progress in IOP tx. Utilized NE techniques to identify and problem solve current barriers, as well as elicit change behaviors. Aided pt in using dialectical thinking to challenge thoughts regarding current stressors. Began discussing aftercare planning and areas for continued focus. Client Response:: Pt willing to arrive earlier than scheduled group time to meet with this therapist and remained engaged throughout session. She indicated feeling somewhat relieved since working with this therapist to ensure she is set up with psychiatry services following discharge from [facility] as she has recently experienced several medication issues. Reports that her physical healthy has been a major contributing factor to ongoing anxiety and agitation. Pt went on to describe a recent situation in which she describes feeling increased energy and as though she was crawling out of her skin. Pt was able to identify this as being the result of unmanaged stress and anxiety causing increased agitation. Pt reports telling her son she needed to do something to get out of the house and change things up. Indicated that she feels lack of change in routine has also been impacting her depression. Pt continues to do well to identify areas in her life impacting mental health however struggles with focusing primarily on an external locus of control which impacts pt ability to make healthy changes in her own life to better manage mental health sx. Pt worked with this therapist to review skills she has used in the past to manage and reduce anxiety causing agitation. Identified music, hot baths, and using a stress ball to regulate and calm herself. Continues to struggle with application of skills to prevent stress or increased anxiety. Pt was able to identify small things she can do to incorporate more pleasurable activities in daily life and identified going to the [place], going canoeing, and yard sales as things she has not done in a while but would enjoy. Pt reports that she would like to focus on further developing internal skills to use for emotional release as well as increase her current support system prior to discharge. Identified that she would like to find a weekly or bi-weekly support group to do for ongoing support post discharge, expressed interest in equine therapy. Risks/Concerns:: No risks or concerns noted. Pt reports ability to maintain safety. Protective factors include her son and parents. Future-oriented, indicated plans for the weekend. Progress Toward Goals/Plan:: Limited progress noted, some regression. Pt continues to report increased anxiety related to ongoing medication issues causing physical side effects, as well as various other medical issues related to her back, legs, and dental problems. Pt reports using few internal coping skills outside of a stress ball and often relies on others to calm her or prevent her from escalating. Pt increase in sx is reflected in DSM-5 Cross cutting analysis as he scores in various areas increased. Pt reports she is not utilizing thought challenging, positive self-talk, reaching out so supports, or mindfulness as discussed in various IOP group she has attended. Despite increased scores for agitation, scoring 4/4 on DSM assessment, pt continues to report improved ability to de-escalate self and think before reacting. Continues to report limited motivation or willingness to reach out to others. Therapist continues to encourage pt to reach out to supports, practice healthy skills outside of using stress ball and complete regular check-ins in order to know when she may need to use skills learned. Will continue in IOP to prevent decom pensation, continue to encourage healthy change behaviors, and provide support. Time Stopped:: 09:14
--- NOTE | 2018-12-10 14:59 | BH.COMM ---
Communication Note - Communication with Client Communication Note: Pt did not show for IOP today. Left message for pt. No overt concerns for safety among staff. Will follow up next business day.
--- NOTE | 2018-12-14 09:00 | BH.SGPN.GN ---
Behaviors/Verbalizations/Mental Status: [] Eye contact is good. Motor activity is appropriate. Appearance is casual. Speech is Appropriate. Mood is anxious/irritable. Affect is congruent. Thoughts are linear and logical. No evidence of psychosis. Reviewed daily check in sheet and no reports of suicidal ideations or intent. Client Response/Progress/Benefit: [] Pt was an active participant in group discussion. Shared that she is stressed this week due to upcoming medical tests. She completed her sleep study last night and is looking forward to the results. Shared some events this weekend which increased her anxiety and anger however believes that she managed them well. Reports that she is stressing to her child not to react with anger towards people and is trying to set an example as well. Smiling and joking with peers. Shot check-in however participated in group discussion on anger mgmt skills, thoughts stopping, thought challenging, catastrophizing, and setting boundaries. Progress noted. Will continue in IOP to prevent decompensation and stabilize medications. Plan is to discharge this week. Narrative Note: []
--- NOTE | 2018-12-14 11:15 | BH.SGPN.GN ---
Behaviors/Verbalizations/Mental Status: [Eye contact fair to good. Motor activity is appropriate. Appearance is casual. Speech is Appropriate, normal rate and tone. Mood is euthymic and agitated, making jokes however at times verging on sarcastic. Affect is congruent with mood. Thoughts are linear and logical. No evidence of psychosis.] Client Response/Progress/Benefit: [Pt more engaged and a positive participant throughout activity, became less engaged during discussion. Despite decreased input pt taking notes and actively listening. She indicated connecting with group discussion on similarities between the chaos during group activity and how we react to chaos in daily life. Pt able to identify the importance of resilience during times of hardship and nodded as fellow participants shared potential mental health benefits resilience can have. She did well to work within the small group setting to discuss the factors in building Resilience and benefitted from reviewing strategies for developing and promoting a resilient lifestyle. Pt identified that if we have ?self-awareness? we are more likely to recognize warning signs and?triggers. Pt continues to make limited progress in maintaining consistent with application of skills outside tx environment which may impact ability to manage and reduce mental health sx. Recommended continued IOP tx to prevent decompensation and continue to?promote consistency of healthy skill application and emotion regulation.] Narrative Note: []
--- NOTE | 2018-12-15 09:10 | BH.SGPN.GN ---
Behaviors/Verbalizations/Mental Status: []Client alert and oriented, casually dressed and groomed. Eye contact good. Motor activity appropriate. Speech within normal limits. Affect congruent, mood anxious, irritable. Thoughts linear, logical, no signs of hallucinations or delusions. Reviewed client?s symptom tracker, no risk for suicidal ideation, plan, or intent as of 12/15/18. Client Response/Progress/Benefit: []Client responded well to session, attentive and engaged. Client reports feeling ?anxious? today due to an upcoming dentist appointment. Client shared ?I probably won?t sleep tonight.? The group helped client identify positive coping skills she can use at the Dentist tomorrow and to prepare. Client reported she was prescribed Xanax from her oral surgeon to help client manage anxiety for her procedure tomorrow. Client was encouraged to communicate this with IOP psychiatrist. Therapist discouraged client from taking Benadryl in addition to the Xanax. Client shared she last used coping skills yesterday to manage frustration. Client stated she practiced ?going with the flow? which helped client not get in a fight with her mother. Client appeared to benefit from connecting with peers and discussing medication. Progress noted in client?s ability to avoid conflict yesterday. Client continues to struggle with consistently using internal coping skills to manage anxiety and often reports relying on medication to reduce symptoms. Will continue IOP tx to promote mood stability and improve daily functioning.?
--- NOTE | 2018-12-15 10:05 | PCM.BH.PN ---
Progress Note Progress Note: Chief Complaint: [I am nervous about having my teeth pulled tomorrow.] History of Present Illness/Interim History: [Brielle is a 38-year-old female who is been being seen in follow-up on weaning her nortriptyline. She states that she continues to feel a little better than she did on the higher dose of nortriptyline. Her mood is much less depressed. Her anxiety is overall improved however today she is very nervous about going to the dentist tomorrow. She has to have all her teeth pulled tomorrow and then will be fitted for dentures. She is nervous that the doctor only gave her 1.5 mg total of Xanax to take an hour before she goes for the procedure. She is afraid that she will be super anxious and alert and be unable to tolerate the procedure. I discussed with the patient the fact that the dentist does this every day and the Xanax should be pretty effective for her since she has not taken it for a long time. She states that she remains less sleepy since decreasing the nortriptyline. She also says that she is not feeling foggy like she did before. She had her sleep study and tolerated it well and says she only woke up one time during the sleep study. She said she had the TV on and she wonders if that helped her sleep better than she does at home. At home there is a fan running but she wonders if she needs more noise or an increase in her trazodone to help her sleep better at home. I discussed with the patient that I would recommend that she gets in ambient noise machine to give her more back dry nose noise to improve her sleep. I am hesitant to increase the trazodone because she we are trying to get her on less medication so she is less hung over and groggy during the day. She denies any kind of dissociative states during the past week. She feels that she may be ready to be discharged soon. She does feel she is still benefiting from the program but she feels she is approaching the time when she may be ready for discharge.] Current Psychiatric Medications: [] Current medication doses will stay the same. Trazodone 100 mg p.o. nightly, Cymbalta 60 mg p.o. daily, Abilify 2 mg p.o. daily, Vistaril 50 mg 1-2 p.o. 3 times a day. Trip to lean 50 mg p.o. at bedtime. Taking the Topamax and gabapentin. Review of Symptoms: Review of systems negative except as noted in present illness except for pain in her right calf and foot that she has a boot on. She also continues to complain of some general fatigue but denies presence of a tremor anymore. [] Mental Status Examination: She is casually dressed and groomed today with good hygiene. She is cooperative during the interview with no psychomotor agitation or retardation. Affect is full and consistent with euthymia. She has good eye contact and her speech is normal rate and rhythm, fluent, no pressure. Concentration remains improved. Thought processes organized and goal-directed. Thought content shows no evidence of hallucinations or delusions, no evidence of suicidal or homicidal ideation. Insight continues to improve especially related to polypharmacy and higher doses of drugs not always being better. [] Diagnoses: [] [place] I: [Depressive disorder, unspecified F 33.9, generalized anxiety disorder, excoriation disorder, history of opiate use disorder] [place] II: [Rationality disorder unspecified] [place] III: Migraine headaches, chronic back pain, foot pain and skin issues. [] Plan: [] No medications changes were made today. I had a long discussion with Brielle about strategies to improve her experience at the dentist tomorrow. She is going to practice relaxation exercises, bring her squeeze ball that she got here at the [facility], and wear headphones with music to keep her relaxed. Continue the medication doses as above. She will discuss with the staff as to their opinion on whether she is ready to be discharged from the [facility] soon. She may be ready if she maintains this current state. The risks options benefits possible side effects and complications of the medication were discussed with Brielle and she understands and accepts these. She feels able to maintain safety for herself and for others and agrees to seek help or emergency care should her symptoms worsen.
--- NOTE | 2018-12-15 10:15 | BH.SGPN.GN ---
Behaviors/Verbalizations/Mental Status: [] Eye contact is good. Motor activity is appropriate. Appearance is casual. Speech is Appropriate. Mood is anxious/irritable. Affect is congruent. Thoughts are linear and logical. No evidence of psychosis. Client Response/Progress/Benefit: [] Pt was an active participant in group activity and discussion. Provided insight on quote of the day. Group worked together to identify what are pitfalls when it comes to mental health recovery which included; lack of awareness, lack of motivation, cognitive distortions, poor boundaries, toxic relationships, shutting down, isolating, and negative thoughts. Group discussed the impact of pitfalls and how these can impact progress. Attentive during psychoeducation. Pt participated in group activity. Pt admitted to getting irritable and frustrated with the activity and was able to relate this to feelings associated with encountering a mental health pitfall. Group identified that when they encountered challenges during the activity they began to; pelaez things, began to focus on failing, had increased negative thoughts, and became overstimulated and overwhelmed. Related these to emotions and actions that occur when they encounter mental health pitfalls. Benefited from group by increased awareness on recognizing and understanding the impact of mental health pitfalls. Narrative Note: []
== END 2018-12-15 23:59 ==
LOC: BHIOP 09:00
PROVIDERS: Family Provider Family Medicine; PCP Family Medicine; Referring Provider Psychiatry & Neurology Psychiatry; Visit Provider Psychiatry & Neurology Psychiatry
DX: F33.9 Major depressive disorder, recurrent, unspecified (principal); F41.1 Generalized anxiety disorder; F11.11 Opioid abuse, in remission; G43.909 Migraine, unspecified, not intractable, without status migrainosus; M54.9 Dorsalgia, unspecified; G89.29 Other chronic pain; Z79.899 Other long term (current) drug therapy
CPT/HCPCS: 99214; H0035; H2012; H2020; 90834

== ENCOUNTER 2018-11-24 17:19 | Emergency (ER) | payer MEDICAID, SELFPAY ==
[2018-07-27 20:36] VITALS: BMI 24.7
[2018-11-24 17:20] VITALS: BP 111/72; PULSE 108; RESP 18; TEMP 36.3; O2SAT 96; BMI 24.5
[2018-11-24 18:59] LABS: Absolute Lymphocyte Count 2.63 X10^3/ul (0.83-4.51); Absolute Neutrophil Count 4.6 X10^3/uL (2.0-7.7); Basophil# 0.08 X10^3/uL; Eosinophil# 0.41 X10^3/uL; Hematocrit 38.4 % (37-47); Hemoglobin 12.9 g/dl (12.0-15.0); Lymphocyte # 2.63 X10^3/ul (4.0); Mean Corp Hgb Conc 33.6 g/gl (32-36); Mean Corpuscular Hgb 29.9 pg (27.0-32.0); Mean Corpuscular Volume 88.9 fL (81-99); Mean Platelet Vol. 9.5 fl (6.2-12.0); Monocyte# 0.48 X10^3/uL; Monocyte% 5.8 % (0-10); Neutrophil # 4.61 X10^3/uL (2.7-7.7); POSITIVE COUNT NO; POSITIVE DIFFERENTIAL NO; POSITIVE MORPHOLOGY NO; Platelet Count 237 K/mm3 (150-450); RBC Distribution Width CV 14.2 % (11.6-14.6); RBC Distribution Width SD 46.2 fl (35.1-43.9); Red Blood Count 4.32 M/mm3 (4.2-5.4); White Blood Count 8.2 K/mm3 (4.4-11.0)
[2018-11-24 19:07] LABS: Anion Gap 8 (5-15); BUN 26 mg/dL (7-18); BUN/Creat Ratio 15.5 RATIO (10-20); Calcium,Total 9.1 mg/dL (8.5-10.1); Chloride 107 mmol/L (98-107); Creatinine, Serum 1.68 mg/dL (0.55-1.02); EST Glomerular Filtration Rate 36 mL/min (>60); Est Glom Filt Rate - Afr Amer 44 mL/min (>60); Estimated Creatinine Clearance 47.92 ml/min; Glucose 102 mg/dL (74-106); Potassium 3.7 mmol/L (3.5-5.1); Sodium Level 141 mmol/L (136-145)
--- NOTE | 2018-11-24 19:32 | ED.DCSUM_ITS ---
- ER Visit Summary Date of Service: 11/24/18 Chief Complaint: Falling asleep History of Present Illness: The patient is a 38 F history of anxiety, depression, hypertension, fibromyalgia, chronic pain. Patient states over the last week she is been intermittently falling asleep. Today she was at a gas sta tion and fell asleep while in her car to the point and the attendant of the gas station came out and woke her up and told her that other people had to use the gas station pumps. She believes is secondary to her anxiety medications recently being adjusted by her physicians. She denies any other complaints. No nausea, vomiting, diarrhea or fever. No headaches. No chest pain, abdominal pain or diarrhea. She has not been recently admitted or hospitalized. Physical Examination: Middle-aged woman no acute distress vital signs stable afebrile. HEENT exam unremarkable atraumatic. Pupils are reactive light. No facial droop. Normal speech. Moist mucous memories. Neck nontender no meningismus. No lymphadenopathy. Lungs clear to auscultation bilaterally. Heart regular rhythm no murmur. Rate about 100. Abdomen soft nontender no masses no peritoneal signs. Extremities moves all 4. Neurovascular intact. Calves nontender without edema or cords. 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 Normal dorsi plantar flexion. Back exam nontender. Neurologically she is awake alert with no focal motor deficits. Test Results: CBC shows no acute abnormalities white count 8 hemoglobin 12. Electrolytes unremarkable gap of 8. Her BUN is 26 creatinine 1.68 consistent with mild dehydration. Her prior creatinine was 0.9. Emergency Department Course and Treatment: Due to her mild dehydration she will be given a liter normal saline. She has a prior sleep study that is been ordered and I think is getting done in the next several weeks. I spoke to her parents that were also in the room. He did not allow her to drive. We discussed the possibility of narcolepsy but I explained to them that I think sent to be ruled out first. Continue to follow-up with her primary care physician. Treatment Plan: Follow-up with a sleep study. Follow-up with her primary care physician. Plenty of fluids and rest. Disposition: Discharge Impression: Acute mild dehydration Sleep disorder rule out narcolepsy This note was generated with [employer] dictation software. It may contain incorrect words, spelling, and punctuation that were not noted in review of the chart prior to signing ED Disposition - Plan for ED Patient: Referrals: Tom Giraldo MD [Primary Care Provider] -
--- NOTE | 2018-11-24 19:35 | ED.DEP ---
ED Disposition - Plan for ED Patient: Disposition: Home or Assisted Living Instructions: [facility] Referrals: Tom Giraldo MD [Primary Care Provider] - As Needed Additional Instructions: No driving. Plenty of fluids. Follow-up with your doctor and your sleep study.
[2018-11-24] MEDS: 0.9% Normal Saline 1,000 ML 999 ML IV (19:42)
[2018-11-24 21:47] VITALS: PULSE 87; RESP 14
== END 2018-11-24 21:47 | disposition home or self-care (01) ==
PROVIDERS: Emergency Provider Emergency Medicine; Family Provider Family Medicine; PCP Family Medicine
DX: E86.0 Dehydration (principal); G47.9 Sleep disorder, unspecified; F41.9 Anxiety disorder, unspecified; M79.7 Fibromyalgia; F32.9 Major depressive disorder, single episode, unspecified; I10 Essential (primary) hypertension; Z79.899 Other long term (current) drug therapy; Z72.0 Tobacco use
CPT/HCPCS: 80048; 85025; 96360; 96361; 99283; J7030; A4216

== ENCOUNTER 2018-11-25 10:36 | Emergency (ER) | payer MEDICAID, SELFPAY ==
[2018-11-24 17:20] VITALS: BMI 24.5
[2018-11-25 10:37] VITALS: BP 96/64; PULSE 84; RESP 16; TEMP 36.8; O2SAT 96; BMI 25.1
--- NOTE | 2018-11-25 10:56 | CT_ITS ---
STUDY: CT BRAIN WITHOUT CONTRAST REASON FOR EXAM: Female, 38 years old. Tremors. RADIATION DOSAGE (If Supplied By Facility): CTDIvol = ( 44.99 ) mGy, DLP = ( 745.49 ) mGycm TECHNIQUE: Transaxial CT imaging of the brain was performed without administration of intravenous contrast material. Individualized dose optimization techniques were used for this CT. COMPARISON: No relevant priors. FINDINGS: Normal soft tissue structures. Normal calvarium. Normal size ventricles and extra-axial spaces for the patient's age. Normal white matter tracts of the cerebral hemispheres. Normal basal ganglia and thalami. Normal brainstem. Normal cerebellum. There is no intracranial hemorrhage. There are no findings of an acute ischemic infarction. Normal visualized paranasal sinuses. CT/Brain/Head without Contrast IMPRESSION: Normal unenhanced CT scan of the brain. Electronically Signed: Francisco Lopez, at 12:24 EDT , Service support ,
[2018-11-25 11:27] LABS: Anion Gap 4 (5-15); BUN 23 mg/dL (7-18); BUN/Creat Ratio 15.6 RATIO (10-20); Calcium,Total 8.4 mg/dL (8.5-10.1); Chloride 111 mmol/L (98-107); Creatinine, Serum 1.47 mg/dL (0.55-1.02); EST Glomerular Filtration Rate 42 mL/min (>60); Est Glom Filt Rate - Afr Amer 51 mL/min (>60); Estimated Creatinine Clearance 54.76 ml/min; Glucose 93 mg/dL (74-106); Potassium 4.1 mmol/L (3.5-5.1); Sodium Level 142 mmol/L (136-145)
[2018-11-25 12:06] LABS: Internal QC Validated? YES +Cl - CLEAR BKGD; Pregnancy, Serum, hCG Quali. NEGATIVE Negative
--- NOTE | 2018-11-25 13:00 | ED.VISSUMM ---
- ER Visit Summary Date of Service: 11/25/18 Chief Complaint: Confusion History of Present Illness: The patient is a 38 F who complains of confusion. On further discussion, it sounds like it stems from tiredness. The patient falls asleep frequently. She was seen yesterday for similar symptoms. Please refer to that note. She presents today because she has continued symptoms and also reports tremors in her arms and legs. She said she is awaiting follow-up with primary care and a sleep study. She sleeps about 6 hours per night and naps occasionally. She does not feel well rested. She takes multiple medications to help with her sleep. She denies any changes in her medications. Denies any history of stroke or seizures. Denies any focal symptoms. Denies any vision changes or speech changes. Denies facial droop. Physical Examination: Afebrile and vital signs unremarkable except blood pressure 96/64. The patient is alert and oriented. No acute distress. She has occasional diffuse myoclonic jerks, but otherwise her NIH stroke scale is 0 and she has no other pertinent neurologic findings. HEENT exam unremarkable. Heart regular. Lungs clear. Skin appears unremarkable. Test Results: I reviewed the patient's previous visit. I rechecked her BMP. BUN 23 and creatinine 1.47, both improved since yesterday. test was negative. CT brain showed normal findings. Other testing in the recent past including TSH has been unremarkable. No indication to repeat any other testing. Emergency Department Course and Treatment: I am not sure what is causing the patient's symptoms. I suspect this could be from a sleep problem or from her multiple medications. I am not finding any signs of infection, stroke, other vascular or neurologic disease. I am not identifying emergent toxidrome or medication side effect. I believe the patient is appropriate for outpatient care. She will follow-up with her primary care office, sleep study, and I will also refer to neurology. She should return for any new or worsening issues. Treatment Plan: As above Disposition: Discharge Impression: 1. Generalized fatigue 2. Tremors This note was generated with [employer]ation software. It may contain incorrect words, spelling, and punctuation that were not noted in review of the chart prior to signing ED Disposition - Plan for ED Patient: Referrals: Tom Giraldo MD [Primary Care Provider] -
--- NOTE | 2018-11-25 13:04 | ED.DEP ---
ED Disposition - Plan for ED Patient: Instructions: Essential Tremor Disorder Referrals: Tom Giraldo MD [Primary Care Provider] - Wendy Murdock MD [STAFF PHYSICIAN] -
[2018-11-25 13:07] VITALS: RESP 16
[2018-11-25 13:20] VITALS: BP 139/97; PULSE 75; RESP 16; O2SAT 94
== END 2018-11-25 13:21 | disposition home or self-care (01) ==
LOC: ED 11:33
PROVIDERS: Emergency Provider Emergency Medicine; Family Provider Family Medicine; PCP Family Medicine
DX: R53.83 Other fatigue (principal); G25.3 Myoclonus; I10 Essential (primary) hypertension; F41.9 Anxiety disorder, unspecified; F41.0 Panic disorder [episodic paroxysmal anxiety]; E78.00 Pure hypercholesterolemia, unspecified; Z72.0 Tobacco use; Z79.899 Other long term (current) drug therapy
CPT/HCPCS: 70450; 80048; 84703; 99285

== ENCOUNTER → 2018-12-03 | Outpatient (CLI) | payer MEDICAID, SELFPAY ==
[2018-07-27 20:36] VITALS: BMI 24.7
[2018-11-25 10:37] VITALS: BMI 25.1
--- NOTE | 2018-12-03 10:08 | MRI_ITS ---
STUDY: MRI RIGHT ANKLE WITHOUT CONTRAST REASON FOR EXAM: Female, 38 years old. Right ankle osteochondral defect. Talus, stress fracture. TECHNIQUE: Standardized fat and water weighted pulse sequences were obtained in all 3 orthogonal planes. COMPARISON: None. FINDINGS: Normal subcutis adipose space. Normal posterior tibialis tendon. Normal flexor digitorum longus tendon. Normal flexor hallucis longus tendon. Normal peroneus longus and brevis tendons. Normal tibialis anterior tendon. Normal extensor hallucis longus tendon. Normal extensor digitorum longus tendons. Normal Achilles tendon and teno-osseous insertion. Normal plantar fascia. Normal plantar calcaneal tubercles. Normal intrinsic muscles of the rearfoot. Normal distal tibiofibular syndesmotic ligamentous complex. Normal lateral ligamentous complex. Normal subtalar ligaments and sinus tarsi. Normal deltoid ligamentous complexes. Normal plantar calcaneonavicular (spring) ligament. Normal tibiotalar articulation. Normal talar dome. Normal subtalar articulations. Normal talonavicular articulation. Normal calcaneocuboid articulation. Normal navicular-cuneiform articulations. Marrow edema is noted in the proximal second metatarsal shaft, partially imaged, concerning for fracture or stress injury. This is partially imaged. MRI/Lower Ext Joint Only (Routine) IMPRESSION: 1. Marrow edema in the second metatarsal, partially imaged. This is concerning for fracture or stress injury. Otherwise, negative study. Electronically Signed: Veronica Reynoso MD at 20:12 EDT Tel , Service support ,
--- NOTE | 2018-12-03 10:08 | MRI_ITS ---
STUDY: MRI RIGHT MIDFOOT REASON FOR EXAM: Female, 38 years old. Osteochondral defect of the talus. Stress fracture. TECHNIQUE: Standardized fat and water weighted pulse sequences were obtained in all 3 orthogonal planes. COMPARISON: None. FINDINGS: Normal talonavicular articulation. Normal calcaneocuboid articulation. Normal navicular-cuneiform articulations. Normal intercuneiform articulations. Normal first tarsometatarsal articulation. Normal Lisfranc ligament. Normal second and third tarsometatarsal articulations. Normal cuboid fourth and cuboid fifth tarsometatarsal articulation. There is moderate marrow edema in the shaft of the second metatarsal. No demonstrated fracture. Remaining metatarsal bones are unremarkable. Small effusion of the first metatarsophalangeal joint. Remaining visualized MTP joints are intact. The visualized extensor and flexor tendons are intact. Normal intrinsic muscles of the mid and forefoot region. Normal extensor digitorum brevis muscle. Normal subcutis adipose space. MRI/Lower Ext/No Jt/w/o IMPRESSION: Second metatarsal marrow edema consistent with stress injury. Electronically Signed: Veronica Reynoos MD at 20:20 EDT Tel , Service support ,
== END | disposition home or self-care (01) ==
LOC: MRI 10:02
PROVIDERS: Family Provider Family Medicine; PCP Family Medicine; Referring Provider Podiatrist; Visit Provider Podiatrist
DX: M92.61 Juvenile osteochondrosis of tarsus, right ankle (principal); M79.671 Pain in right foot; S93.601A Unspecified sprain of right foot, initial encounter; T14.8XXA Other injury of unspecified body region, initial encounter
CPT/HCPCS: 73718; 73721

== ENCOUNTER → 2018-12-13 | Outpatient (CLI) | payer MEDICAID, SELFPAY ==
[2018-07-27 20:36] VITALS: BMI 24.7
--- NOTE | 2018-12-16 16:07 | BH.COMM ---
Communication Note - Communication with Client Communication Note: Pt cancelled individual and group sessions scheduled for tomorrow due to dental pain. Indicated plans to attend group Thursday, Thursday, and Thursday. As well as come at 8am Thursday for individual.
== END | disposition home or self-care (01) ==
LOC: SL 20:08
PROVIDERS: Family Provider Family Medicine; PCP Family Medicine; Referring Provider Family Medicine; Visit Provider Family Medicine
DX: G47.33 Obstructive sleep apnea (adult) (pediatric) (principal)
CPT/HCPCS: 95810

== ENCOUNTER → 2018-12-21 | Outpatient (CLI) | payer MEDICAID, SELFPAY ==
[2018-07-27 20:36] VITALS: BMI 24.7
[2018-11-25 10:37] VITALS: BMI 25.1
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
== END | disposition home or self-care (01) ==
LOC: PSN 07:58
PROVIDERS: Family Provider Family Medicine; PCP Family Medicine; Referring Provider Podiatrist; Visit Provider Podiatrist
DX: M54.10 Radiculopathy, site unspecified (principal); R26.2 Difficulty in walking, not elsewhere classified; M79.672 Pain in left foot; M79.671 Pain in right foot; R20.2 Paresthesia of skin
CPT/HCPCS: 95886; 95910

== ENCOUNTER 2018-12-24 08:15 | Outpatient (RCR) | payer MEDICAID, SELFPAY ==
--- NOTE | 2018-12-21 15:22 | BH.COMM ---
Communication Note - Communication with Client Communication Note: Pt cancelled scheduled group for 12/22/18 due to a neurology appt. Indicated plans to attend individual and group sessions on 12/24/18 and is projected to discharge on that date.
--- NOTE | 2018-12-24 08:01 | BH.IGGP_ITS ---
Aftercare Plan - Demographics Treatment End Date:: 12/24/18 Psychiatrist:: Katie Valdivia Psychiatrist Office #:: [phone] [facility] Therapist:: Starla Larkin Therapist Phone #:: [phone] - Medications Home Medications: Home Medications MedroxyPROGESTERone [Depo-Provera] 150 mg IM .[id number] 03/09/15 Gabapentin [Neurontin] 600 mg PO TID 08/09/16 Metoprolol Tartrate 25 mg PO BID 11/02/16 Dicyclomine HCl [Bentyl] 20 mg PO 4X/DAY 04/03/17 Linaclotide [Linzess] 290 mcg PO DAILY 04/03/17 Lisinopril [Prinivil] 10 mg PO DAILY 04/03/17 Atorvastatin Calcium [Lipitor] 20 mg PO QHS 10/13/17 Nortriptyline HCl [Pamelor] 100 mg PO QHS 10/13/17 Omeprazole 40 mg PO DAILY #30 capsule. 10/15/17 Buprenorphine 1 each TD QWEEK 06/18/18 Baclofen [Lioresal] 10 mg PO TID #0 07/27/18 Diclofenac Sodium [Voltaren] 1 gm TOPICAL DAILY 07/27/18 Hydroxyzine Pamoate [Vistaril] 50 mg PO BID 07/27/18 Aripiprazole [Abilify] 2 mg PO DAILY 11/12/18 Duloxetine Hcl [Cymbalta] 60 mg PO DAILY 11/12/18 traZODone [Desyrel] 100 mg PO QHS 11/12/18 Topiramate 25 mg PO DAILY 11/24/18 - Plan Details Progress/Aftercare Plan Details:: Brielle, since starting the IOP program there have been highs and lows but ultimately you have continued to persist. Throughout the program, you have faced numerous stressors regarding both your physical and mental health without allowing for those stressors to keep you from continuing to reach out or cause you to give up. There have been setbacks along the way and times in which you have felt hopeless or overwhelmed, yet, each time you have worked through those difficulties and reminded yourself of the importance of asking for help. Brielle you have shown resilience and seen success in managing stress and continuing to work at actively practicing healthy coping skills. You have discussed improvements in your ability to manage skin picking urges and displayed continued growth in your ability to better regulate your emotions by taking a step back and thinking about ways to respond rather than reacting based on initial emotional response. You have also learned healthy coping skills to manage warning signs and triggers for anxiety, anger, and depression. Remember, to continue to work on application of these skills and remind yourself that your mental health is a priority. There will be bad and difficult days, but as we have discussed, it is how you look at those days that is most important. Ask yourself, can this be an opportunity for growth and guidance rather than something that holds me back. Brielle continue to meet with Isa Hurst at [facility] for individual counseling and [facility]. I have also included updated information for [facility] and groups provided by [facility] and [facility]. Strategies for Success:: 1. Practice, practice, practice! Keep up trying to use healthy coping skills in times of stress - such as using the stress ball, positive self-talk, and taking deep breathes. 2. Remember to pay attention to your warning signs and triggers! You can?t use the coping skills effectively if you aren?t aware of when you need them. Remember that your family can also help you to identify warning signs when they notice them. 3. Consistency! Stay consistent with appointments, medication compliance, and practicing healthy coping skills. Remember to take your medication as prescribed and let your psychiatrist and PCP know when you are experiencing side effects. 4. Maintain a healthy routine and schedule. Try [facility] or one of the groups that [facility] provides, this can keep the skills you have learned fresh in your mind! - Appointments Appointments/Referrals to Other Services:: 1. Follow up with Isa at [facility] for ongoing support and regular counseling. 2. Follow up with [facility] for psychiatry. Remember to ask about the groups they offer for additional support. 3. [facility] encouraged to increase social support and healthy coping skills.
--- NOTE | 2018-12-24 08:42 | BH.MDN_ITS ---
Multi-Disciplinary Note - Note 30-min Individual Time Started:: 08:23 Date: 01/07/19 Purpose of session/treatment goals addressed:: The purpose of this session was to review client's progress in tx and discuss strategies that will continue to promote mood stability and anxiety management following discharge from [facility]. Another goal was to review pt afercare plan. Eye Contact:: Good Motor Activity:: Appropriate Appearance:: Casual Speech:: Appropriate Mood:: Euthymic, Irritable Affect:: Congruent Thoughts:: Linear, Logical, No evidence of hallucinations/delusions noted Staff Interventions:: Therapist used open-ended questions to explore client's thoughts on personal progress and ability to manage current sx. Therapist reviewed identified supports as well as warning signs, and coping skills with to promote continued gains and prevent setbacks. Therapist discussed aftercare plan and recommendations and used strengths-perspective to empower client on progress noted. Therapist gave client additional resources for outpatient support groups and equine therapy. Client Response:: Pt receptive of session, discussed feeling more positive and less stressed than she has in a few weeks. Pt indicated this is due to finally recieving some positive news from various doctors she had seen this week. Went on to show therapist that she had finally received dentures which had been a major stress reliever. Pt and therapist discussed her progress throughout duration of treatments and pt indicated feeling more able to handle daily stressors without reacting instantly out of anger of fear. Pt noted that being able to take a step back and control my mouth has also aided in improving interpersonal relationships and preventing conflict. Additionally noted improved ability to regulate during times of increased anxiety by using her stress ball, talking to a support, and listening to music. Client reports feeling scared about losing the support of the program but ready to do so. She and this therapist reviewed strategies for success and discussed plan for maintaining client's progress. Plan includes ongoing individual outpatient therapy with her therapist, Isa Hurst at [facility] as well as continued psychiatric medication mangement at [facility]. Pt has outpatient therapy appt. scheduled next week and psychiatry set up for 01/25/19. Additionally discussed importance of continuing to expand social support network and pt indicated interest in attending a therapy group provided by [facility], [facility], or [facility]. Reports plans to ffollow up on this as well as contact [facility] about Equine therapy optios. Risks/Concerns:: Client denies any suicidal ideations, plan, or intent as of 12/24/18 Progress Toward Goals/Plan:: Limited progress. Pt has made some progress towards treatment goals as evidenced by self-report and reduction in DSM-5 scores, however pt continues to display difficulties in regulating emotions and preveting sressors from imapcting the remainder of her day. Client states belief she has made progress with using deep breathing and her stress ball to reduce annxiety in the moment and is learning when to take a step back to improve her anger management and communication skills. Client will discharge from [facility] today and has appointments with aftercare providers next week for individual therapy as well as psychiatry 01/25. Client can benefit from continued group support and has been provided resources for local therapeutic support groups in the area. Time Stopped:: 09:45
--- NOTE | 2018-12-24 09:03 | BH.SGPN.GN ---
Behaviors/Verbalizations/Mental Status: []Client alert and oriented, casual dress, hygiene tended to. Eye contact good. Motor activity appropriate. Speech within normal limits. Affect congruent, mood positive and anxious. Thoughts linear, logical, no signs of hallucinations or delusions. Reviewed client?s symptom tracker, no signs of suicidal ideation, plan, or intent as of today. Client Response/Progress/Benefit: []Pt passive participant as evidenced by pt only contributing when elicited by therapist, however did appear to listen attentively to peers. Pt identified current emotion is nervous. Pt identified mental health positive as getting out of the house to attend a county fair with her son. Pt stated another positive as graduating from [facility] today. Pt stated she has improved in emotional regulation, thinking before she speaks, and awareness of the negative impact isolation has on mental health. Pt reported feeling nervous to leave [facility] and no longer have the group support system of people that understand her mental health. Pt identified stressor is having numerous doctor appointments every week. Pt seemed to benefit from reflecting on the treatment progress she has made. Plan is for pt to discharge from [facility] level of care to day. Narrative Note: []
--- NOTE | 2018-12-24 09:57 | BH.DS ---
Discharge Summary - Demographics Date of Admission:: 09/24/18 Discharge Date: 12/24/18 Presenting Problems at Admission:: Pt is a 38-year-old female with a history of Depression, Anxiety, excoriation disorder, past hx of opiate addiction, and traits associated with Borderline personality disorder. Pt additionally has several medical conditions that she reports have directly impacted her mental health. Indicates she is currently taking 36 different medications. Pt was referred to the IOP program by her outpatient therapist, Isa Hurst, due to ongoing difficulties in managing mental health symptoms of depression, ruminating thoughts causing anxiety and panic, and difficulties in regulating her emotions. At admission, client endorsed a depressed mood, anhedonia, increased anxiety and panic especially related to medication issues, lack of motivation, increased agitation causing interpersonal conflict, isolative behaviors, and hopelessness. Pt indicated at time of admission, that symptoms were greatly impacting her ability to meet daily responsibilities and function at baseline. Discharge Diagnoses:: Depressive disorder, unspecified F 33.9, generalized anxiety disorder, excoriation disorder, history of opiate use disorder Reason for Discharge:: Client has made progress towards her treatment goals as shown by reduced depressive symptoms and anxiety. Pt displaying increased ability to better manage her emotions and prevent from escalating to crisis point when angry or anxious. Client reports readiness to return to weekly outpatient counseling with support of her friends and family and no longer meets criteria for IOP level of care. Encouraged to engage in outpatient support groups provided by [facility], [facility], or [facility]. - Treatment Progress During Treatment & Response: Client response to treatment remained variable throughout her admission in the IOP program and often depended on external factors impacting her emotions and willingness to actively engage. Throughout duration of admission, Pt attendance remained inconsistent and sporadic which was evidenced by frequent cancellations and no shows for scheduled attendance days, as well as often leaving prior to completion of group on days she was in attendance. When present for group and individual sessions, pt engagement levels were also variable. Pt often remained closed off or quite during group discussion when struggling with her own thoughts, focusing on outside stressors, or feeling tired. Pt did however do well to take notes consistently throughout admission. At one point in the program, pt experience a period of several weeks in which she struggled with remaining awake throughout the group and in individual sessions due to medication side effect. After adjusting pt medication she did well to remain attentive and engaged when in attendance. She began IOP tx with a primary focus on externalization of major stressors and identified medical symptoms as primary factor impacting mental health and ability to make progress. As she advanced in the program, pt has made some progress in this area and learned various internal coping strategies for managing mental health sx. Despite increased awareness of skills, pt continues to struggle significantly with consistent skill application. Pt reports feeling more positive and less anxious when in the group setting and indicates actively using her stress ball as a form or emotion regulation outside group environment. In individual sessions, client was receptive to learning new coping skills and was engaged, though at times struggled with believing skills learned would work or focusing on the potential negatives which impacted progress in decreasing anxiety and depression. Pt has recognized that she made progress in using deep breathing and emotional release to prevent escalating when anxious or angry. At discharge, client?s DSM-5 symptoms scores decreased overall by a total of 3 points; however, decreased by 18 points compared to mid-point assessment. Client?s DSM-5 scores for depression decreased, going from 7/8 at admission to 5/8 at discharge. Additionally, client?s irritability decreased from admission to discharge going from 4/4 to 2/4. Client?s anxiety has decreased since admission as well going from 12/12 to 8/12 at discharge. Issues Still to be Addressed:: Ongoing, client can continue to benefit from weekly counseling to promote consistency and reinforcement of healthy coping skills as well as increase ability to identify and utilize internal coping mechanisms, and better. Client can also continue working on increasing healthy communication with her supports as this is often a primary trigger for emotion dysregulation, as well as continue to promote healthy socialization. Discharge Recommendations/Instructions:: 1. Follow up with Isa at [facility] for ongoing support and regular counseling. 2. [facility]. Remember to ask about the groups they offer for additional support. 3. [facility] encouraged to increase social support and healthy coping skills. Discharge Handout: Complete Discharge Handout with client on aftercare options and continuity of care.
--- NOTE | 2018-12-24 10:18 | BH.SGPN.GN ---
Behaviors/Verbalizations/Mental Status: [Client mostly alert, though at times appearing to sleep. Oriented x3. Casual appearance. Eye contact fair. Motor activity appropriate. Speech within normal limits. Affect congruent, mood anxious, dysthymic. Thoughts linear, logical, no signs of hallucinations or delusions. ] Client Response/Progress/Benefit: [Pt was a passive participant in group discussion, limited engagement and appearing to fall asleep at various points throughout. Processed quote of the day with peers. Pt noted connecting with reflection that communication can be impacted by other?s tone or mood. Group discussed the MH benefits to open and clear communication with supports and providers which included: decreased frustration, improved mood and happiness, clearer expectations, improved personal connections, and decreased fear. Group discussed the barriers that tend to impact clear and open communication which include: fear, apathy, distorted thoughts, misinterpretations, past negative experiences, not wanting to hurt other?s feelings and assumptions. Pt was more attentive during psycho-education on communications styles (aggressive, passive, passive-aggressive, and assertive). Also listened during discussion on the pros and cons to each communication style. Pt stated she could connect with all the different communication styles, specifically that of passive or passive-aggressive and aggressive communication. Pt seemed to benefit from increased insight on how communication impacts mental health. Pt to continue IOP level of care to increase generalization of healthy coping skills, identify and challenge distorted thoughts and prevent decompensation.] Narrative Note: []
--- NOTE | 2018-12-24 11:20 | BH.SGPN.GN ---
Behaviors/Verbalizations/Mental Status: []Client alert and oriented, casually dressed and groomed. Eye contact good. Motor activity appropriate. Speech within normal limits. Affect congruent, mood irritable. Thoughts linear, logical, no signs of hallucinations or delusions. Client Response/Progress/Benefit: []Client responded well to session, attentive, but mostly a passive participant. Attentive during ongoing psychoeducation on the different communication styles. Client able to gain insight into her communication style and client reported she is passive aggressive and aggressive. Client shared she has a history of yelling at people when frustrated and overwhelmed. Client able to acknowledge that these communication styles do not always benefit client, but she was unable to provide examples. Passive participant during group activity. Able to use the activity to reflect on ways to improve communication. Attentive during psychoeducation on D.E.A.R M.A.N and reported she wants to work appearing confident and being mindful of her approach when communicating. Appeared to benefit from increasing self-awareness and practicing in the moment coping skills. Client will discharge from [facility] today as she reports improved ability to cope with her mental health symptoms.
== END 2018-12-24 14:00 | disposition home or self-care (01) ==
LOC: BHIOP 08:15
PROVIDERS: Family Provider Family Medicine; PCP Family Medicine; Referring Provider Psychiatry & Neurology Psychiatry; Visit Provider Psychiatry & Neurology Psychiatry
DX: F33.9 Major depressive disorder, recurrent, unspecified (principal); F41.9 Anxiety disorder, unspecified; F11.90 Opioid use, unspecified, uncomplicated; F60.3 Borderline personality disorder
CPT/HCPCS: H0035; H2020; 90832

== ENCOUNTER → 2019-01-03 | Outpatient (CLI) | payer MEDICAID, SELFPAY ==
--- NOTE | 2019-01-04 10:11 | EEG_ITS ---
- Electroencephalogram This is an 18 channel electroencephalogram performed utilizing the International 10-20 electrode placement protocol as well as photic stimulation and hyperventilation with EKG reference leads on this 38-year-old female who is had episodes of dizzy and lightheadedness associated with falls for several months. There is a diagnosis of neuropathy as well. Background activity is 8 Hz symmetrically in the posterior leads which attenuates with eye opening. Hyperventilation is performed for 3 minutes with no lateralizing or epileptiform changes and the post hyperventilatory phase is unremarkable. The patient did drowse during the recording with no lateralizing or epileptiform changes and EKG reference leads are normal sinus rhythm t hroughout the recording. Photic stimulation is performed demonstrating a normal symmetric driving response in the posterior leads. Impression: Normal awake and asleep electroencephalogram
== END | disposition home or self-care (01) ==
LOC: PSN 09:30
PROVIDERS: Family Provider Family Medicine; PCP Family Medicine; Referring Provider Psychiatry & Neurology Neurology; Visit Provider Psychiatry & Neurology Neurology
DX: G47.00 Insomnia, unspecified (principal); R29.6 Repeated falls
CPT/HCPCS: 95819

== ENCOUNTER → 2019-01-26 | Outpatient (CLI) | payer MEDICAID, SELFPAY ==
[2019-01-26 12:33] LABS: Anion Gap 8 (5-15); BUN 24 mg/dL (7-18); BUN/Creat Ratio 10.2 RATIO (10-20); Chloride 109 mmol/L (98-107); Creatinine, Serum 2.35 mg/dL (0.55-1.02); EST Glomerular Filtration Rate 25 mL/min (>60); Est Glom Filt Rate - Afr Amer 30 mL/min (>60); Glucose 103 mg/dL (74-106); Sodium Level 141 mmol/L (136-145)
== END | disposition home or self-care (01) ==
PROVIDERS: Family Provider Family Medicine; PCP Family Medicine; Referring Provider Family Medicine; Visit Provider Family Medicine
DX: I95.9 Hypotension, unspecified (principal); N39.0 Urinary tract infection, site not specified
CPT/HCPCS: 36415; 80048; 87077; 87086; 87088; 87186

== ENCOUNTER → 2019-02-02 | Outpatient (CLI) | payer MEDICAID, SELFPAY ==
[2019-02-02 12:45] LABS: BUN 20 mg/dL (7-18); Creatinine, Serum 1.55 mg/dL (0.55-1.02); Glucose 92 mg/dL (74-106)
[2019-02-02 12:46] LABS: Anion Gap 8 (5-15); BUN/Creat Ratio 12.9 RATIO (10-20); Chloride 114 mmol/L (98-107); EST Glomerular Filtration Rate 40 mL/min (>60); Est Glom Filt Rate - Afr Amer 48 mL/min (>60); Potassium 3.5 mmol/L (3.5-5.1); Sodium Level 143 mmol/L (136-145)
== END | disposition home or self-care (01) ==
LOC: MFPLAB 11:04
PROVIDERS: Family Provider Family Medicine; PCP Family Medicine; Referring Provider Family Medicine; Visit Provider Family Medicine
DX: I95.9 Hypotension, unspecified (principal)
CPT/HCPCS: 36415; 80048

== ENCOUNTER 2019-02-15 20:10 | Emergency (ER) | payer MEDICAID, SELFPAY ==
[2019-02-15 20:10] VITALS: BP 124/68; PULSE 78; RESP 16; TEMP 36.1; O2SAT 98; BMI 23.8
--- NOTE | 2019-02-15 20:40 | US_ITS ---
STUDY: VENOUS DOPPLER ULTRASOUND - RIGHT LOWER EXTREMITY REASON FOR EXAM: Female, 38 years old. Swelling for 2 days TECHNIQUE: Ultrasound evaluation of the deep vein system to include henry-scale imaging and compression was performed. Henry-scale imaging and Doppler sonographic evaluation, including duplex spectral analysis and qualitative color flow sonography, was performed. COMPARISON: None. FINDINGS: No deep venous thrombosis is identified. All visualized veins demonstrate normal compressibility, augmentation and/or color flow. Ultrasound images of the medial ankle were obtained in region of swelling. No focal abnormalities or fluid collections are identified in that area. US/Venous Duplex Imag/Limited/Uni IMPRESSION: No DVT is identified. Electronically Signed: Ravinder Cordero MD at 21:41 EDT Tel , Service support ,
--- NOTE | 2019-02-15 21:29 | ED.VISSUMM ---
- ER Visit Summary Date of Service: 02/15/19 Chief Complaint: Right foot swelling History of Present Illness: The patient is a 38 F who tells me that for the past 3 to 4 days had pain and now swelling of the right foot. She tells me that she had a prior DVT last year and thinks that this is what it is. She is also had some chronic issues with pain in the ankle and the foot. I wean from looking through prior visits. I see that 2016 she had an ultrasound that showed a peroneal DVT. Physical Examination: Afebrile vital signs stable Gen: Well-nourished well-developed Head: Normocephalic atraumatic Eyes: Perrl EOMI ENT: TMs clear no rhinorrhea moist mucous membranes Neck: Supple no lymphadenopathy no JVD nontender CVS: Regular rate rhythm no murmurs normal S1-S2 Respiratory: No distress clear to auscultation bilaterally chest nontender Abdomen: Soft nontender nondistended normal bowel sounds no masses Back: Nontender Extremity: There is may be a little swelling of the foot compared to the left. She reports diffuse tenderness. She reports limited painful range of motion of the toes. She appears to be neurovascularly intact however. Skin: Normal color no rash Neuro: alert orientated ?3 CN II-XII intact normal strength sensation Psych: Normal affect normal mood Test Results: Duplex ultrasound of the right leg was negative for DVT. Emergency Department Course and Treatment: I went back and relayed the negative ultrasound results and I was cut off by the patient he states there must be something wrong and that she will doctor tomorrow. Impression: 1. Right foot swelling This note was generated with [employer] dictation software. It may contain incorrect words, spelling, and punctuation that were not noted in review of the chart prior to signing ED Disposition - Plan for ED Patient: Disposition: Home or Assisted Living Instructions: ED Peripheral Edema, Unilateral Referrals: Tom Giraldo MD [Primary Care Provider] - 3-5 Days if not improving
== END 2019-02-15 21:43 | disposition home or self-care (01) ==
PROVIDERS: Emergency Provider Emergency Medicine; Family Provider Family Medicine; PCP Family Medicine
DX: M79.89 Other specified soft tissue disorders (principal); Z86.718 Personal history of other venous thrombosis and embolism; I10 Essential (primary) hypertension; E78.00 Pure hypercholesterolemia, unspecified; Z72.0 Tobacco use; Z79.899 Other long term (current) drug therapy
CPT/HCPCS: 93971; 99282

== ENCOUNTER → 2019-02-28 | Outpatient (CLI) | payer MEDICAID, SELFPAY ==
[2019-02-15 20:10] VITALS: BMI 23.8
[2019-02-28 18:21] LABS: Anion Gap 5 (5-15); BUN 12 mg/dL (7-18); Calcium,Total 8.7 mg/dL (8.5-10.1); Chloride 113 mmol/L (98-107); Creatinine, Serum 1.09 mg/dL (0.55-1.02); EST Glomerular Filtration Rate 60 mL/min (>60); Est Glom Filt Rate - Afr Amer 72 mL/min (>60); Glucose 93 mg/dL (74-106); Potassium 3.3 mmol/L (3.5-5.1); Sodium Level 144 mmol/L (136-145)
== END | disposition home or self-care (01) ==
LOC: MTLAB 17:03
PROVIDERS: Family Provider Family Medicine; PCP Family Medicine; Referring Provider Family Medicine; Visit Provider Family Medicine
DX: R60.9 Edema, unspecified (principal)
CPT/HCPCS: 36415; 80048

== ENCOUNTER 2019-03-25 18:31 | Emergency (ER) | payer MEDICAID, SELFPAY ==
[2019-03-25 18:32] VITALS: BP 114/68; PULSE 78; RESP 16; TEMP 36.7; O2SAT 98; BMI 24.0
--- NOTE | 2019-03-25 19:19 | ED.VIS.BACK ---
History of Present Illness Chief Complaint: Back Informant: Patient Onset: Today - several hours ago, upon waking up from procedure Timing: Continuous Quality: Aching Location: Lumbar - more to right Current Severity: Severe Maximum Severity: Severe Worsened by: improves with: Movement Relieved by: Remaining Still Associated Symptoms: - - weakness/heaviness both legs; no numbness or pain in lower extremities. No saddle anesthesia. No urinary retention or incontinence. No abdominal pain. Narrative: Patient states she had a radiofrequency ablation by Dr. Fuentes with pain management earlier today. Upon waking up from the procedure she was in an immense amount of pain in her low back, more so than before she had the procedure done. She was given Tylenol and discharged home in a wheelchair and states that her legs are weak, and she was in a lot of pain so she presents here by EMS after calling the office and them directing her to the emergency room. - Past Medical History (1) Anxiety Status: Chronic (2) Chronic back pain Status: Chronic (3) Chronic lumbar disc degeneration Status: Chronic (4) Dyslipidemia Status: Chronic (5) HTN (hypertension) Status: Chronic (6) Insomnia Status: Chronic (7) Migraine Status: Chronic Past Medical History - Allergies and Home Meds Allergies/Adverse Reactions: Allergies acetaminophen [From Percocet] Adverse Reaction (Verified 03/25/19 18:41) Nausea/Vom/Diarrhea aspirin Adverse Reaction (Verified 03/25/19 18:41) Nausea oxycodone [From Percocet] Adverse Reaction (Verified 03/25/19 18:41) Nausea/Vom/Diarrhea Primary Care Physician: Tom Giraldo MD [Primary Care Provider] - Surgical History: cholecystectomy, - - RFA back Lives: With Family Smoking Status: Current every day smoker - Family History Maternal Family History: Family History (Last Reviewed 11/12/18 @ 15:13 by BETH Johnson RN) Father Hypertension Heart disease Brother CAD (coronary artery disease) Myocardial infarction Family History: Reports: Unknown Paternal Family History: Family History (Last Reviewed 11/12/18 @ 15:13 by BETH Johnson RN) Father Hypertension Heart disease Brother CAD (coronary artery disease) Myocardial infarction Family History: Reports: Heart Disease, Hypertension, Stroke Review of Systems General: Denies: Chills, Fever, Sweats Eyes: Denies: Visual changes - bilaterally, Diplopia ENT: Denies: Rhinorrhea, Sore throat Cardiovascular: Denies: Chest pain, Palpitations Respiratory: Denies: Dyspnea, Cough, Dyspnea on exertion Gastrointestinal: Reports: Nausea, Vomiting - earlier at home, due to pain. Denies: Abdominal pain, Diarrhea, Melena, Hematochezia Genitourinary: Denies: Dysuria, Hematuria, Frequency Musculoskeletal: Reports: Back pain. Denies: Neck pain, Swelling, Extremity Pain Skin: Denies: Rash, Wounds Neurological: Reports: Weakness. Denies: Headache, Numbness Physical Exam Vital Signs/Narrative: Vital Signs Temp Pulse Resp BP Pulse Ox 03/25/19 18:32 98.1 F 78 16 114/68 98 Inital Vital Signs reviewed: Yes General: Well nourished, Well developed, - - well-appearing, nad Head: Normocephalic, Atraumatic Eyes: Perrl, EOMI ENT: Moist mucous membranes, No rhinorrhea Neck: Supple, Nontender Cardiovascular: Regular rate, Regular rhythm. Negative for: Tachycardia Respiratory: No distress, CTA bilaterally Abdomen: Soft, Nontender, Nondistended Neuro: Alert, Oriented, Normal Sensation, Weakness - throughout BLE; able to move; limited due to back pain as well. Negative for: Normal DTR - Hyporeflexic throughout lower extremities, no clonus, toes downgoing Psychological: Normal affect, Normal Mood Diagnostic/Tx/Re-eval - Medical Decision Making I was able to discuss with Dr. Fuentes who performed the procedure. He performed radiofrequency ablation of the middle branch, innervating one or more of the facets in her back, without affecting any nerve roots or other branches that would have lower motor neurons or sensory neurons in the lower extremities. Furthermore, he only did this on the right side. With symmetric reflexes, which the patient does have, this likely indicates no acute peripheral neuropathy in the legs. The patient does not have cauda equina syndrome clinically. I want to discuss more with the patient, she feels like she is having trouble with her legs due to the pain in her back, and not necessarily that they are actually weak like she indicated initially. At this time the plan is to treat her pain, and then see if she can stand or walk. She indicates that she really would like to get home as soon as possible, however if she has true neurologic weakness, she will need to have a stat MRI. The patient did have some improvement after analgesic injections. On reevaluation she is able to stand and ambulate without any difficulty. At this time I feel comfortable discharging her home with a symmetric neurologic exam, this is much more suspicious of her simply being limited due to pain. She is advised to follow-up, and we discussed reasons to return and she is comfortable with that plan and has a ride home. ED Disposition - Plan for ED Patient: Disposition: Home or Assisted Living Diagnosis: Other acute postprocedural pain Instructions: BACK PAIN (Acute or Chronic) Referrals: Tom Giraldo MD [Primary Care Provider] - Rocky Fuentes [NON-STAFF] - 1-2 Days if not improving
[2019-03-25] MEDS: Ketorolac 60 MG/2 ML Vial IM (20:15)
[2019-03-25] MEDS: Morphine 4 MG/ML Syringe IM (20:16)
[2019-03-25 21:04] VITALS: BP 114/68; RESP 16; RESP 18
== END 2019-03-25 21:05 | disposition home or self-care (01) ==
PROVIDERS: Emergency Provider Emergency Medicine; Family Provider Family Medicine; PCP Family Medicine
DX: G89.18 Other acute postprocedural pain (principal); F41.9 Anxiety disorder, unspecified; G89.29 Other chronic pain; M54.9 Dorsalgia, unspecified; M51.36 Other intervertebral disc degeneration, lumbar region; E78.5 Hyperlipidemia, unspecified; I10 Essential (primary) hypertension; Z79.899 Other long term (current) drug therapy; F17.200 Nicotine dependence, unspecified, uncomplicated
CPT/HCPCS: 96372; 99284

== ENCOUNTER → 2019-04-19 13:15 | Outpatient (CLI) | payer MEDICAID, SELFPAY ==
[2019-03-25 18:32] VITALS: BMI 24.0
[2019-04-19 13:35] LABS: Mucous, Urine 0 SEEN /hpf (<or=2+)
[2019-04-19 14:20] LABS: Color, Urine Yellow (Yellow); Glucose, Dipstick Normal (Normal); Ketone-Dipstick 5 mg/dl (Negative); Leukocyte Esterase-Dipstick 500 /ul (Negative); Nitrite-Dipstick Negative (Negative); Occult Blood-Urine 10 /ul (Negative); Protein-Dipstick Negative (Negative); Urine Bilirubin Dipstick Negative (Negative); Urine Clarity Sl. Cloudy (Clear); Urine Urobilinogen Normal (Normal)
[2019-04-19 14:29] LABS: Red Blood Cells-Urine 0-5 SEEN /hpf (0-5); White Blood Cells 25-50 SEEN /hpf (0-5)
[2019-04-19 14:30] LABS: Bacteria 2+ /hpf (None Seen); Calcium Oxalate Crystals Ur 1+ /hpf (<or=2+); Squamous Epithelial Cells - UA 0-5 SEEN /hpf (5-10)
[2019-04-19 15:55] LABS: Chlamydia Trachomatis by PCR Negative (Negative); Neisserai gonorrhoeae by PCR Negative (Negative); Probe Check PASS; Sample Adequacy Control PASS; Specimen Processing Control PASS
== END ==
PROVIDERS: Family Provider Family Medicine; PCP Family Medicine; Referring Provider Family Medicine; Visit Provider Family Medicine
DX: N39.0 Urinary tract infection, site not specified (principal)
CPT/HCPCS: 81001; 87077; 87086; 87088; 87186; 87491; 87591

== ENCOUNTER 2019-04-27 07:28 | Emergency (ER) | payer MEDICAID, SELFPAY ==
[2019-04-27 07:29] VITALS: BP 160/99; PULSE 110; RESP 17; TEMP 36.6; O2SAT 98; BMI 23.3
--- NOTE | 2019-04-27 07:45 | MRI_ITS ---
STUDY: MRI LUMBAR SPINE WITHOUT CONTRAST REASON FOR EXAM: Female, 38 years old. Back pain, bowel incontinence, foot drop TECHNIQUE: Standardized fat and water weighted pulse sequences were obtained in the sagittal and axial planes. COMPARISON: 09/09/2016 FINDINGS: T12-L1: Normal endplates. Normal disc height, hydration and morphology. Normal bilateral facet joints. Normal central canal and bilateral lateral recesses. Normal bilateral intervertebral neural foramina. Normal lumbar lordosis. There is no substantial scoliosis. Normal conus medullaris that terminates at the L1/L2. L1-2: Normal endplates. Normal disc height, hydration and morphology. Normal bilateral facet joints. Normal central canal and bilateral lateral recesses. Normal bilateral intervertebral neural foramina. L2-3: Normal endplates. Normal disc height, hydration and morphology. Normal bilateral facet joints. Normal central canal and bilateral lateral recesses. Normal bilateral intervertebral neural foramina. L3-4: Normal endplates. Normal disc height, hydration and morphology. Normal bilateral facet joints. Normal central canal and bilateral lateral recesses. Normal bilateral intervertebral neural foramina. L4-5: Normal endplates. Normal disc height, hydration and morphology. Normal bilateral facet joints. Normal central canal and bilateral lateral recesses. Normal bilateral intervertebral neural foramina. L5-S1: Normal endplates. Normal disc height, hydration and morphology. Normal bilateral facet joints. Normal central canal and bilateral lateral recesses. Normal bilateral intervertebral neural foramina. Normal visualized sacral ala. Rudimentary disc space at S1/S2. Normal visualized paraspinous soft tissue structures. MRI/Spine Lumbar (Routine) IMPRESSION: Normal unenhanced MR examination of the lumbar spine. Electronically Signed: Clint Mo MD at 10:04 EST Tel , Service support ,
--- NOTE | 2019-04-27 07:48 | ED.DCSUM_ITS ---
- ER Visit Summary Date of Service: 04/27/19 Chief Complaint: Intermittent low back pain with right leg numbness and weakness and bowel incontinence History of Present Illness: The patient is a 38 F history of L3?4?5?S1 degenerative disc disease. No prior back surgeries. States she has had worsening and more severe low back pain the last 3 days. With pain radiating down her right leg. Decreased sensation in her right thigh. Decreased strength in her right foot. And she is had 2 episodes of bowel incontinence. No urinary incontinence or retention. She is never had incontinence prior to this time. She denies any falls or trauma. She denies any fever. She is on no blood thinners. She has had spinal injections before but not within the last month. Physical Examination: Vital signs are stable afebrile. She is having some pain. But she is in no severe distress. H EENT exam unremarkable. Neck nontender. Lungs clear to auscultation bilaterally. Heart regular rhythm no murmur. Abdomen soft nontender normal bowel sounds no peritoneal signs. Patient is moving all 4 extremities. Both upper extremities and the left lower extremity neurovascular intact with normal sensation and strength. Her right lower extremity she has decreased medial thigh sensation. He has decreased motor strength to her right foot. She has a positive straight leg raise on the right not the left. She has weakened dorsi and plantar flexion of the right foot. Patient's motor and sensory are somewhat subjective. She does seem to have normal rectal tone. Test Results: Plain MRI of the lumbar spine shows acute abnormality. No degenerative disc disease. I did review the MRI myself the patient is back and shows very good. This was officially read by the radiologist. Emergency Department Course and Treatment: Patient treated with IV morphine, Toradol and Zofran. Treatment Plan: Repeat evaluation the patient is doing well. I explained to her MRI of her lumbar spine was read as normal. She is repeatedly asked for more narcotic pain medication which I informed her she did not need for this and she can use Tylenol or Motrin at home. I am concerned she may have been falsifying her claims and her exam to obtain pain medication. Disposition: Discharge Impression: Acute low back pain Drug-seeking behavior This note was generated with [employer] software. It may contain incorrect words, spelling, and punctuation that were not noted in review of the chart prior to signing ED Disposition - Plan for ED Patient: Referrals: Tom Giraldo MD [Primary Care Provider] -
[2019-04-27] MEDS: Ondansetron 4 MG/2 ML Vial IV (08:12)
[2019-04-27] MEDS: morphine 10 MG/ML Syringe IV (08:12)
[2019-04-27] MEDS: Ketorolac 30 MG/ML Syringe IV (08:12)
[2019-04-27] MEDS: LORazepam 2 MG/ML Syringe 1 MG IV (09:01)
--- NOTE | 2019-04-27 10:31 | ED.DEP ---
ED Disposition - Plan for ED Patient: Disposition: Home or Assisted Living Instructions: BACK PAIN (Acute or Chronic) Referrals: Tom Giraldo MD [Primary Care Provider] - 1 Week if not improving Additional Instructions: Your MRI was normal therefore I do not have a specific cause for your pain. Tylenol Motrin for pain. Follow-up with your primary care physician.
== END 2019-04-27 10:38 | disposition home or self-care (01) ==
PROVIDERS: Emergency Provider Emergency Medicine; Family Provider Family Medicine; PCP Family Medicine
DX: M54.5 Low back pain (principal); G89.29 Other chronic pain; Z76.5 Malingerer [conscious simulation]; Z72.0 Tobacco use
CPT/HCPCS: 72148; 96374; 96375; 99284; A4216; J2405

== ENCOUNTER 2019-05-27 14:03 | Outpatient (RCR) | payer MEDICAID, SELFPAY ==
--- NOTE | 2019-05-30 09:05 | BH.SGPN.GN ---
Behaviors/Verbalizations/Mental Status: []Client alert and oriented, casual dress, hygiene tended to. Eye contact fair. Motor activity appropriate. Speech within normal limits. Affect constricted, mood anxious. Thoughts linear, logical, no signs of hallucinations or delusions. Client Response/Progress/Benefit: []Pt passive participant AEB pt not providing any input during discussion, however appeared to actively listen to peers. Pt chose to not share during check-in this morning. Pt seemed to benefit from being oriented to group process and support by peers. Pt's first day in program. Recommend continued IOP to stabilize moods, increase healthy coping and prevent decompensation. Narrative Note: []
--- NOTE | 2019-05-30 10:20 | BH.SGPN.GN ---
Behaviors/Verbalizations/Mental Status: []Eye contact is good. Motor activity is appropriate. Appearance is casual. Speech is Appropriate. Mood is anxious. Affect is congruent. Thoughts are linear and logical. No evidence of psychosis. Client Response/Progress/Benefit: []Client was an active participant in group activity and attentive during discussion. Client often nodding to comments made by peers. Group identified several definitions of pitfalls which included; engaging in choices that keep us stuck, unexpected dangers, and unforeseen difficulty. The group discussed the consequences of continuing to fall into pitfalls or not address pitfalls which included; hospitalization, increased mental health symptoms, and loss of employment or relationships. Attentive during psychoeducation on the vicious cycle that can occur if one does not cope in healthy ways. Group worked together to identify what keeps us stuck or vulnerable to pitfalls which included; lack of resources, stigma, feeling uncomfortable, it is hard to go against the norm, and difficulty seeing the big picture. Client was vocal and engaged during the activity, providing ideas to peers. Benefited from increased awareness on the impact that pitfalls can have on mental health. Client?s first day of IOP. Will continue IOP tx to prevent decompensation of depressive symptoms and improve mood stability. Narrative Note: []
--- NOTE | 2019-05-30 11:21 | BH.SGPN.GN ---
Behaviors/Verbalizations/Mental Status: [Client alert and oriented, casually dressed and groomed. Eye contact good. Motor activity appropriate. Speech within normal limits. Affect congruent, mood anxious and depressed. Thoughts linear, logical, no signs of hallucinations or delusions.] Client Response/Progress/Benefit: []Client receptive of session, engaged throughout AEB client actively listening during discussion, providing input, and taking notes. Listened and processed activity with group and connected it to overcoming personal pitfalls in life. Client completed a worksheet where pt identified personal pitfalls impacting mental health progress. Identified pitfalls as: fear of being alone, loneliness, pain/health problems, hallucinations, large group anxiety, not doing or wanting to do ADL?s, and isolation. Client agreed that with awareness and use of healthy coping skills, it is possible to prevent or better manage pitfalls. Discussed this has been difficult in the past due to getting caught up in old habits or lacking the motivation. Attentive during psychoeducation on strategies to overcome pitfalls. Client stated she will work on pitfall of anxiety by reminding herself it?s okay to ask for help. Benefited from identifying personal pitfalls and strategies to overcome these pitfalls, as well as support provided by group. Will continue IOP tx to reduce depression, promote healthy change behaviors, and prevent decompensation. Narrative Note: []
--- NOTE | 2019-06-01 12:08 | PCM.BH.PSYEV ---
Psychiatric Evaluation - Initial Evaluation Initial Evaluation: Chief Complaint: [] I feel lonely and panicky when I think about my son leaving home. History of Present Illness: [] Patient is a 38-year-old single female who has been referred by herself to the IOP program at [facility]. Brielle did the [facility] IOP program in spring and summer 2018. She felt the program was very beneficial to her. She had been doing okay for several months however the patient was recently fired by her pain management doctor secondary to what she calls a misunderstanding. In addition to this causing an increase in her pain (back pain and fibromyalgia pain all over), patient also has a stressor of her 14-year-old son getting older and he frequently talks about going to the and/or to college and this makes the patient feel very sad, panicky and lonely. She says she has been having panic attacks lately and notices that her chest gets tight when she feels very anxious. She is currently living in a house that her father owns with her 14-year-old son. Her father lives down the street and comes for dinner often. She is currently financially supported by her father and by child sort of support she receives for her son. Patient said that she had 5 prescriptions from her pain management doctor and lost all 5 of them. The pain management group then fired her despite the fact that they could look on the orders and see that she had not filled any of the 5 prescriptions. The patient endorses feeling down and depressed and worried about being alone. She feels lonely and is increasingly isolating herself. Due to her increased physical pain and her depression she is not able to get her activities of daily living done like she used to. She describes passive suicidal ideation but no active suicidal ideation and no plan. She says the suicidal ideation now is minimal with only rare fleeting thoughts. She does endorse having thoughts that she would not care if she . For primary support she has her mother. She also endorses hopelessness and worthlessness and anhedonia. She denies any hallucinations, delusions, homicidal ideation or delusions. Her sleep is okay and she reports getting 8 to 9 hours asleep despite waking up a few times during the night. Current Psychiatric Medications: [] Trazodone 100 mg p.o. nightly; Cymbalta 60 mg p.o. daily; topiramate 25 mg p.o. daily ((migraine headaches) Seroquel X are 200 mg, 1 p.o. nightly (increased 1 month ago); gabapentin 300 mg p.o. 3 times daily (decreased 1 month ago); nortriptyline 100 mg p.o. at bedtime Past Psychiatric History: [] Patient has a history of one psych admit in the past at [facility] in 1999. She felt like she was from outer space during that admission and feels it was due to medication side effects. She denies any history of suicide attempts. She denies any history of cutting or self-harm behavior. She states she was first treated for mental health issues about 2017. She has been treated with a variety of psych meds over the years. They have included Elavil, Ativan, Xanax, and Prozac, Effexor, Paxil, Abilify, Ambien. She has a psychiatrist now for [address] Youngblood. Abilify 2 mg p.o. daily was discontinued about 1 month ago. Substance Use History: [] Patient is a smoker 1 pack/day x 20 years. She uses alcohol only once a year. She does have a history of an opiate addiction from prescribed opioids and voluntarily did detoxification in 2017. She denies ever taking any drugs off the street. He denies any marijuana use and denies any drug use at all right now. No rehab except as dictated above. Review of systems: She has pain in her lower back chronically and pain from her fibromyalgia which she describes as all over my body. Allergies: [Aspirin] Medications: [] Occasions as listed above plus Depo-Provera 105 mg IM every 3 months; dicyclomine 20 mg 4 times daily as needed; Lipitor 20 mg daily; omeprazole 40 mg p.o. daily; baclofen 10 mg p.o. up to 3 times a day as needed; hydroxyzine 50 mg p.o. twice a day as needed; buprenorphine patch was discontinued 1 month ago when she got fired from pain management. Past Medical History: [] Hypertension, GERD, chronic back pain, fibromyalgia, migraine headaches, high cholesterol, chronic fatigue syndrome, 1 para 1; no menstrual periods secondary to Depo-Provera shot. Family Psychiatric History: [] Patient's mother is 60-year-old and dad is 81 years old. Maternal grandfather and maternal uncle are alcoholics. A paternal uncle completed suicide in the past. The patient's son has anxiety but is on no medication for this. Patient's mother and maternal grandmother have depression and and anxiety. Personal/Social History: [] Patient's parents were but when she was 3 years old. She had little contact with her mother when young. She was raised by her father but denies any abuse during her childhood. She had 7 siblings, one is . She does not get along with any of her siblings. She went to school up to 11th grade but then quit. 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 She had numerous jobs in the past but could not keep them. She is currently unemployed and living on child support and money from her father. She is because she says her was an alcoholic. She has a history of having a boyfriend for 1 year but describes the relationship as problematic. She has a history of problematic relationships in the past. She has a 14-year-old son who lives with her and he is currently talking about going to the and to college and this is really upsetting his mother. She is applied for disability and is currently waiting to hear results. Legal History: [] Negative Vital Signs: [] Viewed in nursing notes Mental Status Examination: [] Patient is a 38-year-old female who appears normal for stated age and is casually dressed and groomed with good hygiene. She has no psychomotor agitation or retardation and is cooperative during the interview. Her mood is depressed. Her affect is considered constricted and consistent with depression. Eye contact is good and speech is normal rate and rhythm with no pressure. Concentration is intact. Thought processes are organized and goal-directed. Thought content: No evidence of hallucinations or delusions. No evidence of suicidal or homicidal ideation and no plan. She does have evidence of passive thoughts that she would not care if she . Insight: Good. Impulsivity: Low to moderate. Judgment: Intact. Diagnoses: [] Wilcox I: [] Depressive disorder, unspecified (F 33.9); generalized anxiety disorder; history of excoriation disorder; history of opioid use disorder Wilcox II: [] Personality disorder unspecified Wilcox III: [] Migraine headaches, chronic back pain, fibromyalgia Wilcox IV: [] Primary support issues Plan: [] Patient will start the IOP program and behavioral health at [facility] as the structure, support, education, group and individual therapy will hopefully prevent worsening of the patient's symptoms that might require hospitalization. The risk, options, possible side effects and complications of the medication were discussed with the patient she understands and accepts these. She felt safe during the interview and if at any time she does not feel safe she will call to tell us at the IOP program or go to the emergency room. Patient does not plan on going to pain management anytime in the near future. The patient agrees to increasing her dose of Cymbalta to 90 mg p.o. daily. She understands at this should help her depression, anxiety and any neuropathic pain. A prescription was sent in for this with 1 refill. I will see the patient in 2 to 3 weeks to see how she is doing on the increased dose of Cymbalta. She will continue to follow-up with her outpatient providers.
--- NOTE | 2019-06-01 12:28 | BH.DR.ITP ---
Initial Treatment Plan - Patient Information Visit Information: ADMISSION DATE: EXPECTED LOS: 4-6 weeks - Problems/Symptoms Problem #1:: Depression Symptom:: Sadness, hopelessness, loneliness, passive thoughts of Problem #2:: Anxiety Symptom:: Worry, rumination, panic feelings
--- NOTE | 2019-06-02 09:05 | BH.SGPN.GN ---
Behaviors/Verbalizations/Mental Status: [] Eye contact is good. Motor activity is appropriate. Appearance is casual. Speech is Appropriate. Mood is depressed/irritable. Affect is congruent. Thoughts are linear and logical. No evidence of psychosis. Reviewed daily check in sheet and pt reports 1/5 for suicidal ideations and 0/5 for intent. Client Response/Progress/Benefit: [] Pt was an active participant in group discussion regarding healthy vs unhealthy anger as well as anger mgmt skills. Daily symptoms tracker notes 4/5 for anxiety, 5/5 for hopelessness, and 3/5 panic/agitation. While active in group discussion and engaged in topics pt declined to share for herself. She shared hx of unhealthy coping skills for anger as well as some insight into the negative impact of bottling up anger. Benefited from group support and encouragement. Will continue in IOP to maintain safety, increase healthy coping, and stabilize mood. Narrative Note: []
--- NOTE | 2019-06-02 10:10 | BH.SGPN.GN ---
Behaviors/Verbalizations/Mental Status: []Client alert and oriented, casually dressed and groomed. Eye contact good. Motor activity appropriate. Speech within normal limits. Affect constricted, mood depressed. Thoughts linear, logical, no signs of hallucinations or delusions. Client Response/Progress/Benefit: []Client active participant during group AEB client contributing to discussion and making connections throughout. Client shared having supports helps a person bounce back, but supports cannot always be there ?every time you need them.? For this reason, client shared it is important that each person is a support for themselves as well. Client helped group brainstorm potential consequences of not having a support system and barriers to developing social supports, which included: feeling like a burden, shame, pride, anxiety, and lack of resources. Group identified benefits of social support as increased confidence, less stress, and improved relationships. Client reported supports can also help people increase awareness of warning signs and progress. Client took an active role during the group activity. Appeared to benefit from gaining awareness of barriers that keep people from seeking social support as well as identifying the benefits of increasing support. Client showing progress in her increased engagement and positivity in sessions. Will continue IOP tx to prevent decompensation of depressive symptoms and improve overall functioning. Narrative Note: []
--- NOTE | 2019-06-02 11:26 | BH.NA ---
Physical Data - Vital Signs Temperature: 98.4 F Pulse Rate: 72 Respiratory Rate: 16 Blood Pressure: 104/72 - Height/Weight Height: 1.78 m Weight:: 77.111 kg Weight in Pounds: 170.0 lbs Current Medication Compliance - Medication Compliance Do you take your medication as prescribed?: Yes Nutritional History - Appetite Nutritional Instructions:: If client shows signs of a swallowing problem, weight change of 10 pounds or more in the last month, or is on a diabetic diet, the physician will review and request a dietitian consult, as appropriate. All unintentional weight loss will be referred to the physician for decision on need for dietitian consult. Describe your appetite:: Fair Have you noticed a change in your eating habits lately?: Yes Additional nutritional information:: Client states she has gained weight in the last year or so from eating junk food in the middle of the night. Functional Assessment - Sleep Pattern Describe any problems with sleeping: Client states she sleeps 5-6 hours per night, getting up about 3-4 times per night. Client states she has a hard time falling asleep. Client states in the last year, her sleep has decreased. Sensory/Communication Assess - Communication Problems Do you have difficulty understanding what people are saying?: No What is your primary language?: Swedish Medical Problems/History - Cardiac Conditions Cardiovascular: Hypertension, Hyperlipidemia - Neurological Conditions Neurological: Headaches - Gastrointestinal Conditions Comments:: GERD - Pain Assessment Do you have acute or chronic pain?: Yes - chronic back pain, fibromylagia - Family History Family History: Family History (Last Reviewed 11/12/18 @ 15:13 by BETH Johnson RN) Father Hypertension Heart disease Brother CAD (coronary artery disease) Myocardial infarction Surgical History - Surgical History Have you had any surgeries? If so, list type and date:: Yes - cholecystectomy Substance Abuse - Substance Abuse Please describe substance abuse in the last 30 days:: Client denies alcohol use, past or present. Client denies substance abuse, past or present. Client is a 1 pack per day smoker for the past 20 years. Client did go through detox from opioids in 2017, as she had been taking them for pain. Mental Status Summary - Mental Status Significant Findings/Observations on Appearance and Mood:: Client is alert and oriented x 4. Client is casually groomed and cooperative with assessment. Client makes good eye contact, normal activity level. Client's speech rate and volume normal, speech coherent and spontaneous. Client makes logical associations and normal processing. Client appears mildly depressed and mildly anxious, especially when she talks about her son leaving or her recent loss of a pain management doctor. Client denies delusions or hallucinations and no evidence of same. Client denies SI. Client with good attention and concentration. Suicide Assessment - Suicidal Ideation Are you currently or have you been suicidal in the past?: No Suicidal Intentional Rating Scale (SIRS): Suicidal thoughts (past) - Client denies SI at this time. Physician Notification: If Active suicidal thoughts/Will not contract for safety is checked, contact physician and document in the Physician Notification section below. Past Psychiatric History - MH Treatment Hx Past Psychiatric Medications:: Elavil, Ativan, Xanax, Prozac, Paxil, Abilify, Ambien Age of first mental health symptoms: Client states she has had anxiety for many years. Describe (age, circumstance, etc) any past hospitalizations: Client has been hospitalized once for mental health in 1999. Current providers for mental health treatment (counselor, psychiatrist, case hardener, etc.): Client sees Afia Youngblood for psychiatry. Client states Isa Hurst referred client to [facility] program this time stating she thought she could benefit from it. Fall Risk Assessment - Age Age: Less than 60 - Mental Status Mental Status: Willing & able to ask for assistance when needed - Physical Status Physical Status: No problems - Impairments Impairments: None - Elimination Elimination: Continent AND independent - Gait or Balance Gait or Balance: Walks independently - Hx of Falls History of falls in the past 6 months: No known history - Medications/Substances Psychotropics:: Antidepressants, Antipsychotics, Antihistamines (e.g. Benadryl) Medications/substances used within the past 24 hours or ordered to administer: 3 or more of the medications/substances listed above - Total Score Total Points:: 2 RN Summary of Impressions - Impressions Recommendations: Include psychiatric and medical issues, treatment planning recommendations, and discharge planning needs. Impressions: Psychiatric Issues: depressive disorder unspecified, generalized anxiety disorder, history of opioid use disorder, personality disorder unspecified Impression: Medical Issues: Client states she was recently fired from her pain management doctor, stating she lost the 5 prescriptions they had given her and even though she had not filled them, it was part of the contract that she could not continue with them for pain management. Client states she is seeing a back surgeon next week and also a neurologist, and she will be seeking a new pain management doctor somewhere near these doctor's office ([facility]). - Level of Care How do the client's current symptoms and functional deficits support need for this level of care?: Client states her feelings of depression and anxiety have worsened in the last one or so. Client states the strongest feeling she has is the fear of being alone. Client states her 14 year old son often talks about joining the and leaving home, and she is very close with her elderly 81 year old father. She states she has an intense fear of everyone leaving her and her being all alone. Client reports some hopelessness, anhedonia, and worthlessness. Client denies suicidal ideations at this time. IOP will promote gains and prevent further decompensation while providing social support and skills training.
[2019-06-02 11:57] VITALS: BP 104/72; PULSE 72; RESP 16; TEMP 36.9
--- NOTE | 2019-06-03 09:05 | BH.SGPN.GN ---
Behaviors/Verbalizations/Mental Status: []Client alert and oriented, casually dressed and groomed. Eye contact good. Motor activity appropriate. Speech within normal limits. Affect constricted, mood euthymic. Thoughts linear, logical, no signs of hallucinations or delusions. Reviewed client?s symptom tracker, no risk for suicidal ideation, plan, or intent as of 06/03/19. Client Response/Progress/Benefit: []Client responded well to session, engaged and attentive throughout. Client reports feeling happy today and did not report many stressors. Client shared she spent time with a friend over the weekend and she had a good time. Client stated another mental health win is that client was running late this morning, but she came to IOP despite feeling rushed. Client recognizes that it would have been easy for her to cancel, but that would not benefit her mental health. Client's stressor today is knowing that the weather is going to get bad and there will be snow. Appeared to benefit from coming to group instead of isolating and reflecting on her positives. Will continue IOP tx to prevent decompensation of anxiety symptoms, improve daily functioning, and increase independence. Narrative Note: []
--- NOTE | 2019-06-03 10:11 | BH.SGPN.GN ---
Behaviors/Verbalizations/Mental Status: [Client alert and oriented, casually dressed and appropriately groomed. Eye contact good. Motor activity appropriate. Speech within normal limits. Affect congruent, mood dysthymic. Thoughts linear, logical, no signs of hallucinations or delusions.] Client Response/Progress/Benefit: []Client was an active participant in group activity and provided input to discussion. Client connected with the topic of obstacles and solutions and worked with group to identify common internal and external barriers that keep people stuck. Pt identified limited supports, fear of loneliness, negative self-talk, and doubt as potential internal barriers that could prevent progress towards desired reality. Client shared her current reality as ?trying to swim in the middle of the ocean to my supports who are on a boat, but not knowing how to even swim?. Client shared a realistic, desired reality would be feeling more capable of being able to use her skills in order to better support herself and get to the boat where she has access to supports. Benefited from group as client was able to identify current mental health state and barriers that are impacting progress; however, at times continued to struggle with anxiety about speaking up in group and limited insight. Will continue IOP to prevent decompensation, improve anxiety management and emotion regulation, as well as reduce mental health sx severity. Narrative Note: []
--- NOTE | 2019-06-03 11:15 | BH.SGPN.GN ---
Behaviors/Verbalizations/Mental Status: []Client alert and oriented, casual in appearance. Eye contact good. Motor activity appropriate. Speech within normal limits. Affect congruent, mood dysthymic and anxious. Thoughts linear, logical, no signs of hallucinations or delusions. Client Response/Progress/Benefit: []Client was an active participant in group discussion and activity. Able to identify fear, worry, and negative thoughts as obstacles which are preventing client from achieving client?s desired reality. Client was able to identify that she is not going with her first thought as a way to help herself move towards desired reality. Active during activity and providing ideas on how to cope with internal barriers. Client along with peers identified various obstacles during the activity and developed strategies to overcome those obstacles to wellness and desired reality. Client selected wanting to work on the barrier of limited support system by being willing to hang out with others. Benefited from group by identifying obstacles and solutions to desired reality. Will continue IOP tx to combat distortions, increase social support, and prevent decompensation. Narrative Note: []
--- NOTE | 2019-06-07 09:16 | BH.SGPN.GN ---
Behaviors/Verbalizations/Mental Status: []Eye contact is good. Motor activity is appropriate. Appearance is casual, grooming appropriate. Speech is Appropriate rate and tone. Mood is euthymic, anxious. Affect is congruent. Thoughts are linear and logical. No evidence of psychosis. Reviewed daily check in sheet and pt reports SI at a rate of 1/5 which is consistent with usual baseline, denies active plan, or intent as of this date. Has met with individual therapist for further assessment Client Response/Progress/Benefit: []Pt responded well to session, engaged throughout and open to processing with the group. Pt indicated current emotion as ?content? and discussed that this is due to having a positive weekend with her family. Pt identified this as a current mental health win as she has a history of isolating and avoiding others. Additional win identified as reaching out to a support who is not family. She shared doing so despite anxiety about doing so. Appeared to benefit from reflecting upon the progress she has made in challenging anxiety provoking thoughts and utilization of her supports. Pt progress noted per pt report of improved communication and application of healthy skills she is learning in IOP tx. Pt recommended continued IOP tx to prevent decompensation, promote ongoing application of healthy coping skills, and further reduce mental health sx severity. Narrative Note: []
--- NOTE | 2019-06-07 10:20 | BH.SGPN.GN ---
Behaviors/Verbalizations/Mental Status: []Client alert and oriented, casually dressed and groomed. Eye contact good. Motor activity appropriate. Speech within normal limits. Affect constricted, mood euthymic. Thoughts linear, logical, no signs of hallucinations or delusions. Client Response/Progress/Benefit: []Client responded well to session, providing examples and actively contributing to session. Group worked together to define goals and identify the benefits of developing goals which included: something to look forward to, motivation, sense of purpose, accountability, challenging oneself and personal growth, and improve mood. Client stated progress takes time and it is important to focus on ?baby steps and note your progress? while working towards bigger goals. Group identified barriers that keep people from setting and following through with goals which included; time and energy, lack of awareness, easy to fall back into old habits, fear of leaving one?s comfort zone, and negative people. Client shared ?it?s easy to give up and say screw it if your goal is unrealistic.? Attentive and contributing during education on developing SMART goals. Benefited from increase awareness of goal-setting methods. Client?s first day of IOP. Will continue IOP to reduce anxiety, improve mood stability, and promote internal coping skills. Narrative Note: []
--- NOTE | 2019-06-07 11:20 | BH.SGPN.GN ---
Behaviors/Verbalizations/Mental Status: []Client alert and oriented, casually dressed and appropriately groomed. Eye contact fair to good. Motor activity appropriate. Speech within normal limits. Affect congruent. Mood anxious. Thoughts linear, logical, no signs of hallucinations or delusions. Client Response/Progress/Benefit: []Pt attentive throughout, engaged in discussion and completing worksheet. Engaged in creating own mental health SMART goal. Pt identified goal as: Reach out to at least one person via messenger at least once a week?. Pt reported this goal will benefit her by decreasing negative thinking. Pt identified potential barriers to accomplishing goal to include: lack of trust and don't feel like it. Pt reported she will overcome barriers by not setting such rigid boundaries with others and using opposite action. Pt seemed to benefit from identifying a SMART goal and coming up with strategies to overcome potential barriers. Progress noted in pt ability to create a small relevant goal aimed at improving mental health symptoms. Pt to continue IOP to increase healthy coping skills, decrease anxiety, and prevent decompensation. Narrative Note: []
--- NOTE | 2019-06-07 15:08 | BH.MDN ---
Multi-Disciplinary Note - Note 45-min Individual Time Started:: 08:32 Date: 06/07/19 Purpose of session/treatment goals addressed:: Purpose of session was to assess pt's current symptoms and stressors. Session focused on establishing goals for IOP level of care. Also discussed creating a fear ladder. Eye Contact:: Good Motor Activity:: Appropriate Appearance:: Casual Speech:: Appropriate Mood:: Anxious Affect:: Congruent Thoughts:: Linear, Logical, No evidence of hallucinations/delusions noted Staff Interventions:: Therapist used open ended questions to elicit pt's current symptoms and stressors. Therapist elicited from pt treatment goals she'd like to focus on while in IOP. Therapist provided psychoeducation about anxiety and impact avoidance behaviors has on anxiety. Therapist educated pt about fear ladders and provided pt with homework to start working on making her own fear ladder about going places without a support person. Client Response:: Pt reported she has been struggling with increased anxiety and fear about being alone. Pt stated her dad is getting older and her son keeps talking about joining the when he is 18 years old. pt reported she knows she still has 4 years until her son can leave, but her anxiety increases every time he talks about the . pt stated she is fearful she will just be alone. Pt stated she continues to struggle with connecting with others besides her dad, mom and son. Pt reported she doesn't attempt to make connections with others because thinks they will leave me anyway. Pt stated she wants to be able to overcome her fear that others will leave her so she is able to build her support system. Pt reported she also would like to work on increasing ability to go places without a support person. Pt shared she is unable to go anywhere without her mom, dad or her son accompanying her. Pt stated she doesn't go to the grocery store or medical appointments alone. pt reported IOP is the only place she goes without a support person. Pt shared inability to be alone due to high anxiety impacts her ability to meet new people. Pt connected with education about anxiety and how avoidance increases anxious response. Pt agreeable to complete fear ladder for homework. Risks/Concerns:: Pt denies current suicidal ideation, plan or intention to date. Progress Toward Goals/Plan:: Progress noted with pt's increased awareness of negative thought patterns and openness to try different strategies to manage mental health symptoms. Pt recommended to continue IOP to increase emotional regulation, increase healthy supports, and prevent decompensation. Time Stopped:: 09:10
--- NOTE | 2019-06-07 20:27 | BH.MTP ---
Master Treatment Plan - Patient Information Program Physician:: Dr. Wayne Primary Therapist:: Rochelle Chung [facility] - Psychiatric Diagnoses Psychiatric Diagnoses:: Depressive disorder, unspecified; generalized anxiety disorder; history of excoriation disorder; history of opioid use disorder; Personality disorder unspecified Diagnosis Code(s):: F 33.9 - Estimated LOS Estimated LOS (in weeks):: 6 Problem/Goal #1 - Problem/Goal #1 Stated Goal:: Client will reduce depression, feelings of hopelessness, and suicidal ideation due to Major Depressive Disorder through Intensive Outpatient Program. Description of Barriers: Pt's negative thoughts, negative core beliefs, hx of inconsistent follow through with coping skills, limited social supports, and passive thoughts of could all be potential barriers to treatment. Functional Impact: Pt's mental health symptoms impacting pt's ability to leave her home alone which results in pt staying isolated. Pt can't go to grocery stores to get basic needs, unless her son or parents can go with her. Pt can't increase social support due to not being able to go anywhere without others. Pt's signficiant anxiety can exasperate depressive symptoms. Goal Relevant Strengths/Supports: Pt is resilient and expresses motivation to get better. - Objectives Objective #1 Stated Objective: Identify 2-3 thoughts or behaviors that reinforce depressive symptoms and replace negative thoughts with more rational thinking. Interventions: Therapist will help client identify distorted thinking that triggers or reinforces depressive state. Therapist will provide client with resources to help guide in replace trigger thoughts or behaviors. Discharge Criteria: Client will have met this goal when she can verbalize at least 2 thoughts or behaviors that reinforce depressive episode, identify rational response to replace those thoughts, and effectively be able to defeat suicidal ideation. Target Date: 07/13/19 Review Date: 06/29/19 Objective #2 Stated Objective: Pt will decrease depressive symptoms AEB pt?s score on the DSM 5 cross-cutting measure and improve pt?s daily functioning. Interventions: Through groups and individual therapy, pt will be provided with education on cognitive distortions, mistaken beliefs, and identifying and combating negative self-talk. Therapist will assist pt with getting back into the activities she once enjoyed as well as increasing healthy coping strategies. Discharge Criteria: Pt will have met this goal when pt?s score on the DSM 5 cross cutting measure for depression has been decreased and per pt?s report daily functioning has improved. Target Date: 07/13/19 Review Date: 06/29/19 Problem/Goal #2 - Problem/Goal #2 Stated Goal:: Stabilize anxiety level while increasing ability to function on daily basis. Description of Barriers: Pt's negative thoughts, negative core beliefs, hx of inconsistent follow through with coping skills, limited social supports, and passive thoughts of could all be potential barriers to treatment. Functional Impact: Pt's mental health symptoms impacting pt's ability to leave her home alone which results in pt staying isolated. Pt can't go to grocery stores to get basic needs, unless her son or parents can go with her. Pt can't increase social support due to not being able to go anywhere without others. Pt's signficiant anxiety can exasperate depressive symptoms. Goal Relevant Strengths/Supports: Pt is resilient and expresses motivation to get better. - Objectives Objective #1 Stated Objective: Client will learn and implement 2-3 calming skills to reduce overall anxiety and manage anxiety symptoms. Interventions: Therapist will teach client calming/relaxation skills and how to apply these skills to everyday life. Discharge Criteria: Client will have achieved this goal when can verbalize at least 2 calming strategies and have practiced techniques to help reduce anxiety. Target Date: 07/13/19 Review Date: 06/29/19 Objective #2 Stated Objective: Pt will decrease anxious symptoms AEB pt?s score on the DSM 5 cross-cutting measure improve pt?s daily functioning. Interventions: Through groups and individual therapy, pt will be provided education about anxiety?s impact on body and common physiological reaction to anxiety. Therapist will teach pt appropriate breathing techniques and build healthy coping skills to manage daily anxieties. Discharge Criteria: Pt will have met this goal when pt?s score on the DSM 5 cross cutting measure for anxiety has been decreased and per pt?s report daily functioning has improved. Target Date: 07/13/19 Review Date: 06/29/19
--- NOTE | 2019-06-13 09:05 | BH.SGPN.GN ---
Behaviors/Verbalizations/Mental Status: [] Eye contact is good. Motor activity is appropriate. Appearance is casual. Speech is Appropriate. Mood is depressed. Affect is flat. Thoughts are linear and logical. No evidence of psychosis. Reviewed daily check in sheet and pt reports 1/5 for suicidal thoughts and 0/5 for intent. This is below baseline for pt. Client Response/Progress/Benefit: [] Pt was an active participant in group discussion. Emotion for today is happy. Daily symptom tracker notes 5/5 for anxiety and panic; 4/5 for agitation and hopelessness. Shared that her weekend went well noting that she accomplished several tasks. Insight that if others are around her and motivating her mood is improved and she is able to be more motivated. She has family over the house on Thursday. States if they weren't there I might have isolated all day. Stress related to numerous medical appointments including upcoming with neurologist. Believes that she is managing herself fairly well identifying that she navigated several stressors last week (son was sick, plumbing issue). More social and engaged which is improving her mood. Progress noted however relies on external motivation. Benefited from group support, encouragement, and feedback. Will continue in IOP to maintain safety, prevent decompensation, and improve coping skills. Narrative Note: []
--- NOTE | 2019-06-13 10:05 | BH.SGPN.GN ---
Behaviors/Verbalizations/Mental Status: []Client alert and oriented, casually dressed and groomed. Eye contact fair. Motor activity appropriate. Speech within normal limits. Affect constricted, mood anxious and dysthymic. Thoughts linear, logical, no signs of hallucinations or delusions. Client Response/Progress/Benefit: []Pt was a mostly passive participant throughout group session AEB pt contributing limited thoughts at times during discussion and listening attentively to peers. Group noted that coping skills can be healthy and unhealthy. Group worked together to identify unhealthy coping skills which included: taking on others problems, putting problems on someone else, avoidance, sleep, deflecting feelings, isolation, and self-sabotage. Pt connected with using the unhealthy coping skill of avoidance. Group worked together to identify potential consequences of using unhealthy coping which included: problems getting worse, harming others because of choices, suicidal ideation, and decreased self-esteem. Pt seemed to benefit from increased awareness of importance of increasing healthy coping skills and consequences of utilizing unhealthy coping skills. During activity pt mostly passive, providing some input at times. Pt to continue IOP level of care to increase healthy coping skills, increase support network, and prevent decompensation. Narrative Note: []
--- NOTE | 2019-06-13 11:11 | BH.SGPN.GN ---
Behaviors/Verbalizations/Mental Status: [] Client semi-alert, though at times struggling to remain awake near end of session. Pt oriented, casually dressed and groomed. Eye contact fair to good. Motor activity appropriate. Speech within normal limits. Affect constricted, mood dysthymic. Thoughts linear, logical, no signs of hallucinations or delusions. Client Response/Progress/Benefit: []Client responded mostly well to session and was initially engaged in discussion throughout; however, appeared to disengage near end of session and ended up falling asleep at various points in session. Client appeared to connect with the activity from second group and helped the group identify benefits of having a strong foundation of internal and external coping skills, as well as importance of maintaining balance in doing so. Client helped the group discuss the different categories of coping skills though struggled with consistent engagement and at times made off topic comments. Categories of coping included distraction, emotional release, grounding, self-love, and thought challenging. Client listened as group discussed pros and cons of each, as well as listened to the examples for each type. Client created a coping skills ?menu? for the five categories of coping skills. Client selected wanting to focus on the category of self-care for the week and will begin doing so by increasing social support system through reaching out to more people. Client appeared to benefit from increasing her repertoire of healthy coping skills. Client progress limited however due to inconsistent engagement in session. Will continue IOP tx to prevent decompensation, reduce anxiety, and increase mood stability. Narrative Note: []
--- NOTE | 2019-06-15 08:35 | BH.COMM ---
Communication Note - Communication with Client Communication Note: cancelled this AM
--- NOTE | 2019-06-17 09:40 | BH.COMM ---
Communication Note - Communication with Client Communication Note: Cancelled this AM due to illness
== END 2019-06-17 23:59 ==
LOC: BHIOP 14:03
PROVIDERS: Family Provider Family Medicine; PCP Family Medicine; Referring Provider Psychiatry & Neurology Psychiatry; Visit Provider Psychiatry & Neurology Psychiatry
DX: F33.9 Major depressive disorder, recurrent, unspecified (principal); F41.1 Generalized anxiety disorder; F11.11 Opioid abuse, in remission; Z79.899 Other long term (current) drug therapy; G43.909 Migraine, unspecified, not intractable, without status migrainosus; G89.29 Other chronic pain; M54.9 Dorsalgia, unspecified; M79.7 Fibromyalgia; R45.851 Suicidal ideations
CPT/HCPCS: H0035; H2012; H2020; T1002; 90834

== ENCOUNTER → 2019-06-16 | Outpatient (CLI) | payer MEDICAID, SELFPAY | END | disposition home or self-care (01) | LOC: LABSPEC 15:40 | PROVIDERS: PCP Family Medicine; Referring Provider Family Medicine; Visit Provider Family Medicine | DX: R30.0 Dysuria (principal) | CPT/HCPCS: 87086; 87088 ==

== ENCOUNTER 2019-06-21 09:00 | Outpatient (RCR) | payer MEDICAID, SELFPAY ==
[2019-06-18 01:08] VITALS: BP 104/72; PULSE 72; RESP 16; TEMP 36.9
--- NOTE | 2019-06-21 10:13 | BH.SGPN.GN ---
Behaviors/Verbalizations/Mental Status: []Client alert and oriented, casually dressed and groomed. Eye contact good. Motor activity appropriate. Speech within normal limits. Affect constricted, mood dysthymic, anxious. Thoughts linear, logical, no signs of hallucinations or delusions Client Response/Progress/Benefit: []Client responded well to session, active occasionally contributing to discussion. Client connected with the group topic of crisis and did well to work with group to define crisis. Client identified examples of potential crisis to include loss of a loved one, work issues, and medical problems. Client agreed with peers that anything can become a crisis ?because small things can build up.? Connected with discussion on how coping with external crisis by using unhealthy coping skills could lead to personal crisis. Group identified unhealthy coping skills to include; using substances, sleep, avoidance/isolation, sex, and obsessively cleaning. Group reported that it is possible to prevent an external crisis from becoming an internal crisis, but it takes awareness of warning signs. Group identified warning signs for crisis which included; negative thoughts, crying uncontrollably, numbing, lack of motivation, and increased agitation. Client completed the personal warning signs worksheet and identified crisis warning signs to include; isolation, avoiding people and responsibilities, and fear of being alone. Benefited from group by increasing awareness of crisis and personal warning signs. Limited progress due to client?s limited attendance. Will continue IOP tx to prevent decompensation of depressive symptoms and decrease avoidance behaviors that reinforce anxiety. Narrative Note: []
--- NOTE | 2019-06-21 11:20 | BH.SGPN.GN ---
Behaviors/Verbalizations/Mental Status: []Client alert and oriented, casual in appearance. Eye contact fair. Motor activity appropriate. Speech within normal limits. Affect constricted, mood anxious and dysthymic. Thoughts linear, logical, no signs of hallucinations or delusions. Client Response/Progress/Benefit: []Client responded well to session as evidenced by client listening attentively to others and providing input throughout session. Client identified her warning signs for crisis and gained further awareness of earliest warning signs. Client appeared to connect that awareness of these warning signs can prevent further crisis and help client utilize healthy coping skills to break the cycle. Client needed assistance with creating crisis action plan to help client better manage warning signs for crisis. Client identified for her plan she would work on facing her anxieties, using opposite action, reminding herself a thought is a thought not a fact, and sitting with the uncomfortable. Client appeared to benefit from creating a crisis action plan and increasing self-awareness. Client to continue IOP to prevent decompensation, increase use of healthy coping skills, and increase ability to go places without a support person. Narrative Note: []
--- NOTE | 2019-06-21 15:56 | BH.MDN ---
Multi-Disciplinary Note - Note 30-min Individual Time Started:: 09:30 Date: 06/21/19 Purpose of session/treatment goals addressed:: Purpose of session was to assess pt's current symptoms and stressors. Other topics included: reviewing homework and strategies to reduce anxious symptoms. Eye Contact:: Good Motor Activity:: Appropriate Appearance:: Casual Speech:: Appropriate Mood:: Anxious, Dysthymic Affect:: Constricted Thoughts:: Linear, Logical, No evidence of hallucinations/delusions noted Staff Interventions:: therapist used open ended quesetions to elicit pt's current symptoms and stressors. Therapist attempted to review homework from last individual session, explored what prevented pt from completing homework. Therapist explored pt's anxious thoughts that prevent pt from going places by herself. Therapist reviewed fear ladder, teaching pt skills to utilze that can help manage anxious symptoms in the moment. Provided pt with homework to practice sitting with uncomfortable emotions instead of avoiding what makes her anxious. Provided support by using active listening and validating emotions. Client Response:: Pt reported she has been drained because was sick last week which is why she missed IOP sessions. pt stated this weekend she was able to accomplish the task of cleaning her son's fish tank. Pt reported she felt accomplished for getting something done. Pt reported she did not do the homework of completing a fear ladder. Pt stated she didn't complete it because wasn't feeling good. Pt reported she is continuing to struggle with going places without a support person. Pt stated she has been needing to go to the grocery store but has been avoiding it because one of her supports hasn't been available. Pt stated she is afraid to go alone to the store because worried something bad might happen to her and will have no one there to help. Pt shared about 2-3 months ago she didn't have the problem of going places alone. pt stated she used to go to stores and appointments by herself, but now her anxiety keeps her from doing those things. Pt stated she also gets extremely anxious when her son talks about college or going into the . pt stated yesterday she freaked out and told her son he wasn't allowed to talk about the . Pt recognizes her avoidance behavior is exasperating her anxiety. Pt connected with skills of using self talk to label an anxious thought and remind herself a thought is a thought not a fact. Pt agreed to work on using calming skill to help her slowly face the anxious situations. Risks/Concerns:: denies current suicidal ideation, plan or ideation to date. Progress Toward Goals/Plan:: Progress minimal AEB pt continuing to report significant anxiety that is impacting ability to go to the grocery store. Progress could be hindred if pt continues to struggle with consistently attending IOP and not applying skills outside of treatment environment. Pt to continue IOP to decrease anxiety, decrease avoidance and prevent decompensation. Time Stopped:: 10:00
--- NOTE | 2019-06-22 09:05 | BH.SGPN.GN ---
Behaviors/Verbalizations/Mental Status: [] Eye contact is good. Motor activity is appropriate. Appearance is casual. Speech is Appropriate. Mood is anxious. Affect is congruent. Thoughts are linear and logical. No evidence of psychosis. Reviewed daily check in sheet and pr reports 1/5 for suicidal ideations and 1/5 for intention. This is baseline for patient. Client Response/Progress/Benefit: [] Pt was an active participant in group discussion. Emotion for today is happy. Daily symptom tracker notes 5/5 for anxiety, 4/5 for hopelessness, and 3/5 for panic attacks/agitation. Despite high tracker numbers she reports some significant progress this week. Shared that her anxiety has kept her from doing day to day activities like grocery shopping w/o the support of her mother. Notes that she always need someone there to help with her anxiety. Yesterday she was able to complete her entire shopping alone. She was very proud of this however reported it was overwhelming. Immediately began to to state I won't be able to do it again. Group challenged her negative thoughts. Also reported that while shopping she talked with a couple strangers which is another mental health win. Progress noted. Benefited from group support, encouragement, and feedback. Will continue in IOP to prevent decompensation, increase health coping, and improve daily functioning. Narrative Note: []
--- NOTE | 2019-06-22 10:07 | BH.SGPN.GN ---
Behaviors/Verbalizations/Mental Status: []Client semi-alert though at times struggling to maintain awake and oriented, casual dressed and groomed. Eye contact fair. Motor activity appropriate. Speech within normal limits. Affect constricted, mood tired, dysthymic. Thoughts linear, logical, no signs of hallucinations or delusions. Client Response/Progress/Benefit: []Pt receptive to session, at time participating throughout, though at times struggling with off-topic comments and falling asleep. Provided input as the group brainstormed the positive and negative aspects of stress on physical and mental health. Group noted that distress can reduce productivity, lead to avoidance, and impact emotion regulation. Shared benefits of stress as: increased motivation, sense of accomplishment, improved self-esteem, and increased focus. Client did not share current stressors as she was experiencing difficulties in maintaining focus near end of group. Able to recognize that when her stress levels aren?t managed she struggles with isolating and saying things without thinking. Appeared to benefit from gaining awareness of own current stressors and learning about the impact stress has on overall wellbeing. Progress limited as client continues to struggle with engagement and distorted thinking patterns impacting overall consistency of progress. Recommend continued IOP tx to promote use of healthy coping skills and to further reduce mental health symptoms. Narrative Note: []
--- NOTE | 2019-06-22 11:15 | BH.SGPN.GN ---
Behaviors/Verbalizations/Mental Status: []Client alert and oriented, casually dressed and groomed. Eye contact good. Motor activity appropriate. Speech within normal limits. Affect constricted, mood dysthymic and anxious. Thoughts linear, logical, no signs of hallucinations or delusions. Client Response/Progress/Benefit: []Pt passive participant in session as evidenced by pt listening attentively to others and providing limited input during session. Pt worked with the group to complete the challenge activity. Pt stated she had experienced frustration during activity and at times wanted to quit, but was able to stick with the activity despite feeling stressed. Pt actively listening during discussion about the 4 A's of managing stress. Pt seemed to benefit from increased awareness of the impact of stress on mental health and increasing repertoire of stress management strategies. Pt to continue in IOP to prevent decompensation, increase consistent application of healthy coping skills, and decrease avoidance of anxiety provoking situations. Narrative Note: []
--- NOTE | 2019-06-22 12:23 | PCM.BH.PN ---
Progress Note Progress Note: History of Present Illness/Interim History: [] Patient is a 38-year-old single female is seen in follow-up at the [facility] behavioral health IOP program. Brielle feels that she is benefiting from the program. She did increase her Cymbalta to 90 mg 2 weeks ago 2-1/2 weeks ago when I last saw the patient. She has not noticed much of an improvement in her anxiety or mood yet. I discussed with the patient that it can take 2 to 3 weeks to see an improvement. The patient states that she feels very anxious and panicky off and on all day long. The panic is experienced as chest tightness predominantly. She also says that she is afraid to leave the house alone and needs someone to go with her in order to leave the house. I discussed with the patient that she needs to work on some of these issues and therapy also as she is on a number of medications at significant doses. She is still having some pain and remains off of her Butrans patch until she can find another pain doctor. She has been off that for about a month or more. Her sleep is okay and she denies any suicidal ideation or thoughts of . Current Psychiatric Medications: [] Trazodone 100 mg p.o. nightly; Cymbalta 90 mg p.o. daily (x2 to 3 weeks); topiramate 25 mg p.o. daily; Seroquel XR 200 mg p.o. nightly; gabapentin 300 mg p.o. 3 times daily; nortriptyline 100 mg p.o. at bedtime. Mental Status Examination: [] Patient is a 38-year-old female who appears normal for stated age and is casually dressed and groomed with good hygiene. She has good eye contact and has no psychomotor agitation or retardation. She is cooperative during the interview. Her mood is still somewhat depressed. Her affect is constricted. She describes her self is feeling very anxious and panicky but the symptom is chest tightness and there is no evidence of this outwardly. Her speech is normal rate and rhythm and fluent with no pressure. Thought processes organized and goal-directed. Thought content: No evidence of hallucinations or delusions. No evidence of suicidal or homicidal ideation and no plan. Insight: Fair to good. Impulsivity: Low to moderate. Judgment: Intact Diagnoses: [] [place] I: [] Disorder, unspecified (F 33.9; generalized anxiety disorder; history of excoriation disorder; history of opioid use disorder [place] II: [] Personality disorder unspecified [place] III: [] GRAIN headaches, chronic back pain, fibromyalgia [place] IV:[]] Primary support issues Plan: [] The patient will continue the IOP program at [facility] as the structure, support, education, group and individual therapy will hopefully prevent worsening of the patient's symptoms which might require hospitalization. The risk, options, possible complications and side effects of the medication were discussed with the patient and she understands and accepts these. She felt safe during the interview and if at any time she does not feel safe she will let us know or go to the emergency room. A prescription was given to the patient for propranolol 10 mg p.o. twice daily. She will continue her other medications at their current doses. She will continue to follow-up with her outpatient providers. I will see the patient in 2 weeks.
--- NOTE | 2019-06-27 11:30 | BH.COMM_ITS ---
Communication Note - Communication with Client Communication Note: Pt no showed/no called IOP today. This quality analyst/technical writer left a sabiha oicemail for pt to return call to ensure everything is okay with pt and to confirm other days pt plans to attend IOP this week.
--- NOTE | 2019-06-27 11:30 | BH.COMM ---
Communication Note - Communication with Client Communication Note: Pt no showed/no called IOP today. This insurance underwriter sales left a voicemail for pt to return call to ensure everything is okay with pt and to confirm other days pt plans to attend IOP this week.
--- NOTE | 2019-07-05 08:47 | BH.DS ---
Discharge Summary - Demographics Date of Admission:: 05/30/19 Discharge Date: 07/05/19 Presenting Problems at Admission:: At admission pt's mental health symptoms impacted pt's ability to leave her home alone which resulted in pt staying isolated. Pt could not go to grocery stores to get basic needs, unless her son or parents can go with her. Pt can't increase social support due to not being able to go anywhere without others. Pt's signficiant anxiety exasperates depressive symptoms due to isolative behaviors and inability to increase social network. Discharge Diagnoses:: F 33.9 Depressive Disorder, unspecified; generalized anxiety disorder; history of excoriation disorder; history of opioid use disorder; Personality disorder unspecified Reason for Discharge:: Pt has elected to discharge from [facility] at this time due to needing to attend several medical appointments each week which has led pt to not be able to consistently attend [facility]. - Treatment Progress During Treatment & Response: Progress limited due to pt being unable to consistently attend [facility]. Pt demonstrated progress with being able to go to a grocery store independently, which is something she typically avoids or needs someone with her. When pt did attend sessions her participation varied from sometimes being actively involved and other sessions having a more passive role. Pt struggled with follow through on goals set during sessions. Struggled with consistently applying healthy skills outside treatment enviornment. Issues Still to be Addressed:: Pt could benefit from continued work on increasing healthy skills to manage anxiety in the moment. Pt needs continued assistance with decreasing avoidance of anxiety provoking situations. Pt struggles with being alone so would be helpful to build skills to increase independence. Discharge Recommendations/Instructions:: Pt encouraged to establish with outpatient individual counselor; resources provided. Pt is to follow up with already established outpatient psychiatrist. Discharge Handout: Complete Discharge Handout with client on aftercare options and continuity of care.
== END 2019-07-16 23:59 ==
LOC: BHIOP 09:00
PROVIDERS: Family Provider Family Medicine; PCP Family Medicine; Referring Provider Psychiatry & Neurology Psychiatry; Visit Provider Psychiatry & Neurology Psychiatry
DX: F33.9 Major depressive disorder, recurrent, unspecified (principal); F41.1 Generalized anxiety disorder; F11.11 Opioid abuse, in remission; Z79.899 Other long term (current) drug therapy; G43.909 Migraine, unspecified, not intractable, without status migrainosus; G89.29 Other chronic pain; M54.9 Dorsalgia, unspecified; M79.7 Fibromyalgia; R45.851 Suicidal ideations
CPT/HCPCS: 99214; H0035; H2012; H2020; 90832

== ENCOUNTER → 2019-06-28 | Outpatient (CLI) | payer MEDICAID, SELFPAY ==
[2019-06-28 14:57] LABS: Cholesterol 226 mg/dL (200); High Density Lipoprotein 44 mg/dL; Thyroid Stim Hormone (TSH) 0.59 uIU/mL (0.358-3.74); Triglycerides 155 mg/dL; Very Low Density Lipoprotein 31 mg/dL (5-40)
== END | disposition home or self-care (01) ==
LOC: MFPLAB 10:10
PROVIDERS: Family Medicine; PCP Family Medicine; Visit Provider Family Medicine
DX: E78.5 Hyperlipidemia, unspecified (principal); L65.9 Nonscarring hair loss, unspecified
CPT/HCPCS: 36415; 80061; 84443

== ENCOUNTER → 2019-07-22 | Outpatient (CLI) | payer MEDICAID, SELFPAY | END | disposition home or self-care (01) | LOC: PSN 07:24 | PROVIDERS: PCP Family Medicine; Referring Provider Psychiatry & Neurology Neurology; Visit Provider Psychiatry & Neurology Neurology | DX: M79.7 Fibromyalgia (principal) | CPT/HCPCS: 95819 ==

== ENCOUNTER → 2019-07-27 | Outpatient (CLI) | payer MEDICAID, SELFPAY ==
[2019-07-27 10:14] LABS: Absolute Lymphocyte Count 2.29 X10^3/uL (0.83-4.51); Basophil# 0.07 X10^3/uL; Basophil% 0.8 % (0-1); Eosinophil# 0.12 X10^3/uL; Eosinophils% 1.3 % (0-5); Hematocrit 43.1 % (37-47); Hemoglobin 13.6 g/dL (12.0-15.0); Lymphocyte # 2.29 X10^3/ul (4.0); Lymphocyte % 25.5 % (19-41); Mean Corp Hgb Conc 31.6 g/dL (32-36); Mean Corpuscular Hgb 28.9 pg (27.0-32.0); Mean Corpuscular Volume 91.5 fL (81-99); Mean Platelet Vol. 9.7 fl (6.2-12.0); Monocyte# 0.48 X10^3/uL; Monocyte% 5.3 % (0-10); NRBC Flagged by Analyzer 0 % (0-5); Neutrophil # 5.95 X10^3/uL (2.7-7.7); Neutrophil % 66.2 % (47-70); Platelet Count 285 K/mm3 (150-450); RBC Distribution Width CV 15.9 % (11.6-14.6); RBC Distribution Width SD 54.4 fl (35.1-43.9); Red Blood Count 4.71 M/mm3 (4.2-5.4)
[2019-07-27 10:37] LABS: ALB/GLOB Ratio 1.1 RATIO (0.9-2.4); AST(SGOT) 18 U/L (15-37); Alanine Aminotransfer ALT/SGPT 38 U/L (13-56); Albumin, Serum 3.9 g/dL (3.2-5.0); Alkaline Phosphatase 111 U/L (45-117); Anion Gap 6 (5-15); BUN 14 mg/dL (7-18); BUN/Creat Ratio 13.6 RATIO (10-20); CRP < 2.90 mg/L (0.0-3.0); Calcium,Total 9.1 mg/dL (8.5-10.1); Chloride 110 mmol/L (98-107); Creatinine, Serum 1.03 mg/dL (0.55-1.02); EST Glomerular Filtration Rate 64 mL/min (>60); Est Glom Filt Rate - Afr Amer 77 mL/min (>60); Globulin 3.5 g/dL (2.2-4.2); Glucose 87 mg/dL (74-106); Iron 89 ug/dL (50-170); Iron Binding Capacity,Total 291 ug/dL (250-450); PERCENT IRON SATURATION 30.6 % (15.0-55.0); Potassium 3.9 mmol/L (3.5-5.1); Protein, Total 7.4 g/dL (6.4-8.2); Sodium Level 141 mmol/L (136-145)
[2019-07-27 10:58] LABS: Erythrocyte Sedimentation Rate 16 mm/hr (0-20)
== END | disposition home or self-care (01) ==
LOC: MFPLAB 08:47
PROVIDERS: PCP Family Medicine; Referring Provider Family Medicine; Visit Provider Psychiatry & Neurology Neurology
DX: M79.7 Fibromyalgia (principal)
CPT/HCPCS: 36415; 80053; 83540; 83550; 85025; 85652; 86140

== ENCOUNTER → 2019-10-20 | Outpatient (CLI) | payer MEDICAID, SELFPAY | END | disposition home or self-care (01) | LOC: LABSPEC 12:49 | PROVIDERS: PCP Family Medicine; Visit Provider Family Medicine | DX: R35.0 Frequency of micturition (principal) | CPT/HCPCS: 87086; 87088 ==

== ENCOUNTER 2019-12-01 08:38 | Emergency (ER) | payer MEDICAID, SELFPAY ==
[2019-12-01] VITALS (7 sets, daily range): BP systolic 110–137; BP diastolic 73–84; PULSE 89–102; RESP 16–29; TEMP 37.1; O2SAT 98–100; BMI 26.6
--- NOTE | 2019-12-01 09:01 | EKG12_ITS ---
Test Reason : TACHY Blood Pressure : / mmHG Vent. Rate : 101 BPM Atrial Rate : 101 BPM P-R Int : 136 ms QRS Dur : 092 ms QT Int : 364 ms P-R-T Axes : 055 050 051 degrees QTc Int : 471 ms Sinus tachycardia Otherwise normal ECG Confirmed by MOJGAN LAYTON, ONOFRE ([id number]), newspaper editor managing KYLAH DE LEON ([id number]) on 12/05/2019 10:57:59 AM Referred By: CHERRY Confirmed By:ONOFRE ULRICH MD
[2019-12-01 09:09] LABS: Absolute Lymphocyte Count 1.99 X10^3/uL (0.83-4.51); Absolute Neutrophil Count 5.5 X10^3/uL (2.0-7.7); Basophil# 0.06 X10^3/uL; Basophil% 0.7 % (0-1); Eosinophil# 0.08 X10^3/uL; Lymphocyte # 1.99 X10^3/ul (4.0); Lymphocyte % 24.2 % (19-41); Mean Corp Hgb Conc 33.3 g/dL (32-36); Mean Corpuscular Hgb 30.7 pg (27.0-32.0); Mean Corpuscular Volume 92.1 fL (81-99); Mean Platelet Vol. 9.6 fl (6.2-12.0); Monocyte# 0.56 X10^3/uL; Monocyte% 6.8 % (0-10); NRBC Flagged by Analyzer 0 % (0-5); Neutrophil # 5.47 X10^3/uL (2.7-7.7); Neutrophil % 66.4 % (47-70); Platelet Count 274 K/mm3 (150-450); RBC Distribution Width CV 15.4 % (11.6-14.6); Red Blood Count 4.56 M/mm3 (4.2-5.4); White Blood Count 8.2 K/mm3 (4.4-11.0)
[2019-12-01] MEDS: Ondansetron 4 MG/2 ML Vial IV (09:10)
[2019-12-01] MEDS: Ketorolac 15 MG/ML Vial IV (09:10)
[2019-12-01] MEDS: 0.9% Normal Saline 1,000 ML 1000 ML IV (09:10)
[2019-12-01 09:20] LABS: D-Dimer Quantitative (DVT/PE) 0.57 FEU/ug/m (0.27-0.49)
--- NOTE | 2019-12-01 09:23 | CT_ITS ---
STUDY: CTA CHEST REASON FOR EXAM: Female, 39 years old. PT STATED CHEST PAIN, TACHYCARDIA, ELEVATED DDIMER RADIATION DOSAGE (If Supplied By Facility): CTDIvol = ( 9.08 ) mGy, DLP = ( 269.74 ) mGycm TECHNIQUE: The examination was performed with the intravenous administration of 100MLI ISOVUE 370. Post-processing of the angiographic images was performed, with multiplanar reformation and 3D reconstruction. Individualized dose optimization techniques were used for this CT. COMPARISON: None. FINDINGS: Normal enhancement of the main pulmonary artery and right and left pulmonary arteries. Normal enhancement of the bilateral peripheral pulmonary arteries. There is no demonstrated pulmonary embolism. Normal thoracic aorta and visualized great vessels. There is no demonstrated aortic dissection. Normal heart and pericardium. Normal mediastinum. Normal hilar regions. Normal visualized trachea and bronchi. The lungs are well expanded. Minimal degree of dependent bibasilar atelectasis. Normal pleura. Normal chest wall structures. Normal osseous structures. Normal visualized upper abdomen. CT/CTA Chest W/WO Contrast IMPRESSION: Normal CTA chest examination, without a demonstrated pulmonary embolism or arterial dissection. Electronically Signed: Francisco Lopez, at 10:37 EDT , Service support ,
[2019-12-01 09:42] LABS: Anion Gap 8 (5-15); BUN 10 mg/dL (7-18); BUN/Creat Ratio 9.5 RATIO (10-20); Chloride 112 mmol/L (98-107); Creatinine, Serum 1.05 mg/dL (0.55-1.02); EST Glomerular Filtration Rate 62 mL/min (>60); Est Glom Filt Rate - Afr Amer 75 mL/min (>60); Estimated Creatinine Clearance 78.56 ml/min; Glucose 104 mg/dL (74-106); Potassium 3.3 mmol/L (3.5-5.1); Sodium Level 142 mmol/L (136-145); Thyroid Stim Hormone (TSH) 0.46 uIU/mL (0.358-3.74)
[2019-12-01 09:48] LABS: Internal QC Validated? YES +Cl - CLEAR BKGD; Pregnancy, Serum, hCG Quali. NEGATIVE Negative
--- NOTE | 2019-12-01 10:20 | ED.VISSUMM ---
- ER Visit Summary Date of Service: 12/01/19 Chief Complaint: Chest pain History of Present Illness: The patient is a [address] Tom Ulloa. She reports that 730 this morning while she was at rest the she had the onset of a sharp pressure to her substernal area with radiation to her left shoulder. States that it was 10 on 10 at worst and 7 out of 10 currently. Is worsened by nothing including exertion, movement, or breathing. Is also relieved by nothing. She is been nausea with it and vomited once. No blood in her emesis. She denies any diaphoresis. Does report she was short of breath. Patient reports that her heart rate was fast during this. She measured at 140s. She denies any irregularity to it. States that is now improved. She also felt shaky with this. States that the symptoms are different than her typical panic attack. Physical Examination: Vitals: Stable. Afebrile. General: Well-nourished and well-developed. Head: Normocephalic atraumatic. Neck: Supple, no lymphadenopathy. No JVD. Nontender. Cardiovascular: Regular rate and rhythm. No murmurs. Respiratory: No respiratory distress. Clear to auscultation bilaterally. Abdominal: Soft, nontender, nondistended, normal bowel sounds. No guarding, rebound, or peritoneal signs. Back: Nontender. Extremities: Nontender, no edema. Skin: Normal color, no rash. Neurologic: Alert and oriented ?3. Cranial nerves II through XII are intact. Normal strength and sensation. Psych: Normal affect. Test Results: EKG is sinus tach at [address] changes. Is unchanged from July 2018. Initial troponin is negative. D-dimer 0.57. test is negative. Chem-7 shows a potassium 3.3, chloride 112, creatinine 1.05. CBC is normal. Repeat EKG is unchanged. Repeat troponin is negative. Clinical Impression(s) from Imaging Studies Chest CTA 12/01/19 09:23 IMPRESSION: Normal CTA chest examination, without a demonstrated pulmonary embolism or arterial dissection. Electronically Signed: Francisco Lopez, at 10:37 EDT , Service support , Emergency Department Course and Treatment: Patient had an IV placed. She given a liter of normal saline. She was given Toradol and Zofran IV. She is resting comfortably. I reviewed the patient chart and she had a stress test July 2018 that was normal. Treatment Plan: Patient be discharged with naproxen. Instructed to follow-up with her primary care physician in 3 to 5 days for another exam. Return to the emergency department for any worsening symptoms. Disposition: To home in improved and stable condition. Impression: 1. Atypical chest pain. This note was generated with edelight dictation software. It may contain incorrect words, spelling, and punctuation that were not noted in review of the chart prior to signing ED Disposition - Plan for ED Patient: Instructions: ED Chest Pain Atypical Unkn Cause Prescriptions: Naproxen [Naprosyn] 500 mg PO BID #14 tablet Referrals: Tom Giraldo MD [Primary Care Provider] - 3-5 Days if not improving
--- NOTE | 2019-12-01 10:23 | EKG12_ITS ---
Test Reason : REPEAT-CP Blood Pressure : / mmHG Vent. Rate : 091 BPM Atrial Rate : 091 BPM P-R Int : 142 ms QRS Dur : 094 ms QT Int : 392 ms P-R-T Axes : 064 048 039 degrees QTc Int : 482 ms Normal sinus rhythm Prolonged QT Abnormal ECG Confirmed by MOJGAN LAYTON, ONOFRE ([id number]), manuscript editor KYLAH DE LEON ([id number]) on 12/05/2019 10:58:09 AM Referred By: CHERRY Confirmed By:ONOFRE ULRICH MD
[2019-12-01] MEDS: Acetaminophen 500 MG Tablet 1000 MG PO (10:36)
== END 2019-12-01 12:57 | disposition home or self-care (01) ==
LOC: ED 09:30
PROVIDERS: Emergency Provider Emergency Medicine; PCP Family Medicine
DX: R07.89 Other chest pain (principal); I10 Essential (primary) hypertension; E78.00 Pure hypercholesterolemia, unspecified; F41.9 Anxiety disorder, unspecified; Z72.0 Tobacco use; Z79.899 Other long term (current) drug therapy
CPT/HCPCS: 71275; 80048; 84443; 84484; 84703; 85025; 85379; 93005; 96361; 96374; 96375; 99285; J7030; Q9967; A4216; J2405

== ENCOUNTER → 2019-12-15 | Outpatient (CLI) | payer MEDICAID, SELFPAY ==
[2019-12-01 08:39] VITALS: BMI 26.6
[2019-12-15 13:02] LABS: Hematocrit 44.2 % (37-47); Hemoglobin 14.1 g/dL (12.0-15.0); Mean Corp Hgb Conc 31.9 g/dL (32-36); Mean Corpuscular Hgb 30.1 pg (27.0-32.0); Mean Corpuscular Volume 94.4 fL (81-99); Mean Platelet Vol. 10.4 fl (6.2-12.0); Platelet Count 327 K/mm3 (150-450); RBC Distribution Width CV 15.2 % (11.6-14.6); RBC Distribution Width SD 52.4 fl (35.1-43.9); Red Blood Count 4.68 M/mm3 (4.2-5.4); White Blood Count 9.6 K/mm3 (4.4-11.0)
[2019-12-15 13:50] LABS: ALB/GLOB Ratio 1.1 RATIO (0.9-2.4); AST(SGOT) 18 U/L (15-37); Alanine Aminotransfer ALT/SGPT 36 U/L (13-56); Albumin, Serum 3.9 g/dL (3.2-5.0); Alkaline Phosphatase 101 U/L (45-117); Anion Gap 5 (5-15); BUN 14 mg/dL (7-18); BUN/Creat Ratio 13.9 RATIO (10-20); Calcium,Total 8.9 mg/dL (8.5-10.1); Chloride 110 mmol/L (98-107); Cholesterol 210 mg/dL (200); Creatinine, Serum 1.01 mg/dL (0.55-1.02); EST Glomerular Filtration Rate 65 mL/min (>60); Est Glom Filt Rate - Afr Amer 79 mL/min (>60); Globulin 3.7 g/dL (2.2-4.2); Glucose 81 mg/dL (74-106); High Density Lipoprotein 43 mg/dL; Potassium 3.6 mmol/L (3.5-5.1); Protein, Total 7.6 g/dL (6.4-8.2); Sodium Level 140 mmol/L (136-145); Thyroid Stim Hormone (TSH) 0.52 uIU/mL (0.358-3.74); Triglycerides 169 mg/dL; Very Low Density Lipoprotein 34 mg/dL (5-40)
[2019-12-15 14:19] LABS: Hemoglobin A1c 5.1 % (3.8-5.6)
== END | disposition home or self-care (01) ==
LOC: MFPLAB 11:04
PROVIDERS: PCP Family Medicine; Referring Provider Family Medicine
DX: Z79.899 Other long term (current) drug therapy (principal)
CPT/HCPCS: 36415; 80053; 80061; 83036; 84443; 85027

== ENCOUNTER 2020-05-03 08:58 | Emergency (ER) | payer MEDICAID, SELFPAY ==
[2019-12-01 08:39] VITALS: BMI 26.6
[2020-05-03 09:00] VITALS: BP 107/83; PULSE 77; RESP 18; TEMP 36.3; O2SAT 96; BMI 31.7
--- NOTE | 2020-05-03 09:09 | ED.VIS.GEN ---
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 States she landed on her buttocks. She notes pain in the low back. She denies striking her head or any loss of consciousness. She denies any other injuries. She states she has a history of fibromyalgia and degenerative disc disease. 1 year ago she had a lumbar MRI that was normal. She is in pain management. She tells me that she called them and they told her she needed to come to the hospital and get her pain under control. So she called 911 to bring her here. No home treatment so far. She states her legs are aching. - Past Medical History (1) Anxiety Status: Chronic (2) Chronic back pain Status: Chronic (3) Dyslipidemia Status: Chronic (4) HTN (hypertension) Status: Chronic (5) Insomnia Status: Chronic (6) Migraine Status: Chronic (7) panic Status: Chronic Past Medical History - Allergies and Home Meds Allergies/Adverse Reactions: Allergies aspirin Adverse Reaction (Verified 05/03/20 09:06) Nausea Primary Care Physician: Tom Giraldo MD [Primary Care Provider] - Prior records reviewed: Yes Surgical History: cholecystectomy, - - RFA back Smoking Status: Current every day smoker Drugs: None - Family History Maternal Family History: Family History (Last Reviewed 11/12/18 @ 15:13 by JAKY Johnson) Father Hypertension Heart disease Brother CAD (coronary artery disease) Myocardial infarction Family History: Reports: Unknown Paternal Family History: Family History (Last Reviewed 11/12/18 @ 15:13 by JAKY Johnson) Father Hypertension Heart disease Brother CAD (coronary artery disease) Myocardial infarction Family History: Reports: Heart Disease, Hypertension, Stroke Review of Systems General: Denies: Chills, Fever, Sweats Eyes: Denies: Visual changes - bilaterally, Diplopia ENT: Denies: Rhinorrhea, Sore throat Cardiovascular: Denies: Chest pain, Palpitations Respiratory: Denies: Dyspnea, Cough, Dyspnea on exertion Gastrointestinal: Denies: Abdominal pain, Nausea, Vomiting, Diarrhea, Melena, Hematochezia Genitourinary: Denies: Dysuria, Hematuria, Frequency Musculoskeletal: Reports: Back pain. Denies: Extremity Pain Skin: Denies: Rash, Wounds Neurological: Denies: Headache, Weakness, Numbness Physical Exam Vital Signs/Narrative: Vital Signs Temp Pulse Resp BP Pulse Ox 05/03/20 09:00 97.3 F L 77 18 107/83 H 96 Inital Vital Signs reviewed: Yes General: Well nourished, Well developed, No Acute Distress Head: Normocephalic, Atraumatic Eyes: Perrl, EOMI ENT: Moist mucous membranes, No rhinorrhea Neck: Supple, Nontender Cardiovascular: Regular rate, Regular rhythm, No murmurs Respiratory: No distress, CTA bilaterally, Chest nontender Abdomen: Soft, Nontender, Nondistended, Normal bowel sounds Back: - - Diffuse lumbar tenderness to palpation. No ecchymosis abrasions noted. Extremities: Nontender, No edema Skin: Normal color, No rash Neurological: Alert, Oriented x3, Cranial nerves II-XII grossly intact, Normal Strength, Normal Sensation Psychological: Normal affect, Normal Mood Diagnostic/Tx/Re-eval - Medical Decision Making My interpretation of the plain films 3 view lumbar spine are negative for fracture. Received a dose of Toradol and Flexeril. Patient states her pain is no better. She would like a narcotic. I informed the patient that she does not have a fracture. I do not see large hematoma or outward signs of trauma. Reviewing her chart there is concern for drug-seeking behavior. I think this is most likely a muscular strain. Informed her that there is no specific treatment that will render her pain-free immediately. Time will improve her. I am going to recommend Tylenol Motrin muscle relaxant and heat. She is not pleased with this recommendation. 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 At this point patient will be discharged home without controlled substances. ED Disposition - Plan for ED Patient: Disposition: Home or Assisted Living Diagnosis: Fall, Acute lumbar myofascial strain Instructions: ED Back Sprain/Strain Prescriptions: cycloBENZAPRine HCl [Flexeril] 10 mg PO TID PRN #15 tab PRN Reason: Muscle Spasm Prescription Printed Ibuprofen [Motrin] 800 mg PO TID PRN PRN #20 tab PRN Reason: Pain Prescription Printed Referrals: Giraldo,Tom, MD [Primary Care Provider] - 1 Week if not improving
[2020-05-03] MEDS: cycloBENZAPRine HCl 10 MG Tablet PO (09:15)
[2020-05-03] MEDS: Ketorolac 60 MG/2 ML Vial IM (09:16)
--- NOTE | 2020-05-03 09:25 | RAD_ITS ---
STUDY: X-RAY - LUMBAR SPINE REASON FOR EXAM: Female, 39 years old. Fell down 3 steps landing on butt TECHNIQUE: 3 view(s) of the lumbar spine were obtained. COMPARISON: None FINDINGS: There is straightening of the normal lumbar lordosis. There is no substantial scoliosis. There is a normal alignment of the vertebrae. Normal vertebral bodies and endplates. Normal disc space heights. The soft tissue structures are unremarkable. RAD/Lumbar Spine 2 or 3 Views IMPRESSION: Straightening of the normal lumbar lordosis. Electronically Signed: Francisco Lopez, at 9:50 EST , Service support ,
--- NOTE | 2020-05-03 09:41 | ED.RN ---
PT RANG OUT REPORTING PAIN IS STILL 02/24. OFFERED TYLENOL, SHE REPORTS SHE TOOK TYLENOL AND MOTRIN PRIOR TO COMING TO ER. ASKED PT IF THERE WAS SOMETHING SPECIFIC SHE WANTED, AND SHE SAID I WANT SOMETHING STRONGER THAT WHAT HE GAVE ME. INFORMED THAT DR ALREADY STATED THAT HE WAS NOT GOING TO GIVE A NARCOTIC. SHE REPORTS WHY WON'T HE GIVE ME A NARCOTIC, THAT'S WHAT I WANT. INFORMED DR REPORTS THAT SHE DOES NOT MEET CRITERIA FOR NARCOTIC ADMINISTRATION. PT VISIBLY UPSET. IN TO SEE PT.
== END 2020-05-03 09:57 | disposition home or self-care (01) ==
PROVIDERS: Emergency Provider Emergency Medicine; PCP Family Medicine
DX: S39.012A Strain of muscle, fascia and tendon of lower back, initial encounter (principal); I10 Essential (primary) hypertension; E78.5 Hyperlipidemia, unspecified; G89.29 Other chronic pain; F41.9 Anxiety disorder, unspecified; Z79.899 Other long term (current) drug therapy; F17.200 Nicotine dependence, unspecified, uncomplicated; W00.1XXA Fall from stairs and steps due to ice and snow, initial encounter; Y93.01 Activity, walking, marching and hiking; Y92.89 Other specified places as the place of occurrence of the external cause; Y99.8 Other external cause status
CPT/HCPCS: 72100; 96372; 99284

== ENCOUNTER → 2020-05-24 13:27 | Outpatient (CLI) | payer MEDICAID, SELFPAY ==
[2020-05-03 09:00] VITALS: BMI 31.7
[2020-05-31 08:56] LABS: HPV APTIMA, High Risk Positive (Negative)
[2020-05-31 08:57] LABS: HPV Reflexed? YES, CHARGE PATIENT
== END ==
PROVIDERS: PCP Family Medicine; Visit Provider Obstetrics & Gynecology
DX: Z12.4 Encounter for screening for malignant neoplasm of cervix (principal)
CPT/HCPCS: 87624; 88175; G0145

== ENCOUNTER → 2020-06-14 | Outpatient (CLI) | payer MEDICAID, SELFPAY | END | disposition home or self-care (01) | LOC: LABSPEC 15:52 | PROVIDERS: PCP Family Medicine; Visit Provider Family Medicine | DX: Z20.822 Contact with and (suspected) exposure to COVID-19 (principal) | CPT/HCPCS: 87635; U0005; U0003 ==

== ENCOUNTER → 2020-07-18 | Outpatient (CLI) | payer MEDICAID, SELFPAY ==
--- NOTE | 2020-07-18 | IMM_PTH ---
PATIENT: KARLA LANCE LOC: [facility] U#:[id number] AGE/SX: 40/F ROOM: RE07/18/[address]: Dr. Tien Lima MD : 1980 BED: DIS: 07/18/2020 SPEC #: [id number] RECD: 07/19/20 12:31 STATUS: KIRAN REQ #: [id number] NOLBERTO: 07/18/20 00:[address]: Tien Lima DEPT: IMMUNOHISTOCHEMISTRY RECD BY: Yulisa Dong ENTERED: 07/19/20 12:31 SP TYPE: IMMUNO OTHR DR: Dr. Tom Giraldo MD Tissues: A - Uterine cervix, NOS Procedures: p16 (initial) KI-67 (add) PHYSICIAN & INSTITUTION [facility] [phone] SPECIMEN INFORMATION: Tissue Source: A - Cervical biopsy four quad Clinical Info: R87.610, R87.810 Specimen Number: [id number] CPT code: 75587, 04817 METHODOLOGY: Deparaffinized sections of prefer/formalin-fixed tissue or PAP/DQ stained slides are incubated with monoclonal/polyclonal antibodies/oligonucleotide probes. Localization is made via biotin free immunoperoxidase method. Appropriate controls are performed and reacted as expected. Results on target cell population are indicated in the following table: RESULTS: ANTIBODY / CLONE RESULT Block A P16 (E6H4) positive, block staining Ki-67 (30-9) positive, moderate These tests were developed and their performance characteristics determined by [facility]. They may not have been cleared or approved by the U.S. Food and Drug Administration. The FDA has determined that such clearance or approval is not necessary. The above immunohistochemical/dualISH markers are ordered and reviewed by the Pathologist. INTERPRETATION: A. Cervical biopsy four quad: Mild and moderate squamous dysplasia. SJ:heidi 07/20/2020
--- NOTE | 2020-07-18 11:00 | CER_PTH ---
PATIENT: KARLA LANCE LOC: [facility] U#:[id number] AGE/SX: 40/F ROOM: RE07/18/[address]: Dr. Tien Lima MD : 1980 BED: DIS: 07/18/2020 SPEC #: [id number] RECD: 07/18/20 12:05 STATUS: KIRAN ALIAMark #: [id number] NOLBERTO: 07/18/20 11:[address]: Tien Lima DEPT: SURGICAL PATHOLOGY RECD BY: Sirisha Garcia ENTERED: 07/18/20 13:31 SP TYPE: CERV OTHR DR: Dr. Tom Giraldo MD Tissues: A - Uterine cervix, NOS B - Endocervical Procedures: Surgery Specimen Level IV HEADER OPERATION: Colposcopy PRE-OP DIAGNOSIS: R87.610, R87.810 TISSUE SUBMITTED: A - Cervical biopsy four quad, B - ECC MICROSCOPIC DIAGNOSIS A. 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 Dysplastic changes also involving the cervical glands. Chronic inflammation. See comment. B. ECC: Fragments of benign endocervical epithelium, blood and mucous, negative for dysplasia. BRISEYDA:heidi 07/19/2020 COMMENT A. Immunohistochemistry ([id number]) for surrogate HPV marker (p16) supports the above diagnosis. MICROSCOPIC DESCRIPTION Slides are reviewed. GROSS DESCRIPTION A - Received in fixative is one container labeled with the patient's name and designated cervical biopsy four quadrant. The specimen consists of multiple irregular fragments of light aleman soft tissue that in aggregate measure 1 x 1.5 x 0.1 cm. The specimen is totally submitted in one cassette. B - Received in fixative is one container labeled with the patient's name and designated ECC. The specimen consists of multiple fragments of hemorrhagic soft tissue that in aggregate measure 1 x 1 x 0.1 cm. The specimen is totally submitted in one cassette. / BRISEYDA:heidi 07/18/20 TC:5 CPT: 82224 x2
== END | disposition home or self-care (01) ==
LOC: LABSPEC 11:38
PROVIDERS: PCP Family Medicine; Visit Provider Obstetrics & Gynecology
DX: R87.610 Atypical squamous cells of undetermined significance on cytologic smear of cervix (ASC-US) (principal); R87.810 Cervical high risk human papillomavirus (HPV) DNA test positive
CPT/HCPCS: 88305; 88341; 88342

== ENCOUNTER → 2020-08-29 12:20 | Outpatient (CLI) | payer MEDICAID, SELFPAY ==
[2020-08-29 15:10] LABS: Absolute Lymphocyte Count 1.92 X10^3/uL (0.83-4.51); Absolute Neutrophil Count 8.1 X10^3/uL (2.0-7.7); Basophil# 0.03 X10^3/uL; Basophil% 0.3 % (0-1); Eosinophil# 0.01 X10^3/uL; Eosinophils% 0.1 % (0-5); Hematocrit 42.9 % (37-47); Hemoglobin 13.6 g/dL (12.0-15.0); Lymphocyte # 1.92 X10^3/ul (0.83-4.51); Lymphocyte % 17.5 % (19-41); Mean Corp Hgb Conc 31.7 g/dL (32-36); Mean Corpuscular Hgb 29.1 pg (27.0-32.0); Mean Corpuscular Volume 91.9 fL (81-99); Mean Platelet Vol. 9.6 fl (6.2-12.0); Monocyte# 0.86 X10^3/uL; Monocyte% 7.8 % (0-10); NRBC Flagged by Analyzer 0 % (0-5); Neutrophil # 8.08 X10^3/uL (2.7-7.7); Neutrophil % 73.8 % (47-70); Platelet Count 354 K/mm3 (150-450); RBC Distribution Width CV 14.4 % (11.6-14.6); RBC Distribution Width SD 48.1 fl (35.1-43.9); Red Blood Count 4.67 M/mm3 (4.2-5.4)
[2020-08-29 15:35] LABS: Anion Gap 5 (5-15); BUN 15 mg/dL (7-18); BUN/Creat Ratio 15.9 RATIO (10-20); Calcium,Total 9.3 mg/dL (8.5-10.1); Chloride 109 mmol/L (98-107); Creatinine, Serum 0.94 mg/dL (0.55-1.02); EST Glomerular Filtration Rate 70 mL/min (>60); Est Glom Filt Rate - Afr Amer 85 mL/min (>60); Glucose 115 mg/dL (74-106); Potassium 3.9 mmol/L (3.5-5.1); Sodium Level 136 mmol/L (136-145); Thyroid Stim Hormone (TSH) 0.22 uIU/mL (0.358-3.74)
== END ==
PROVIDERS: PCP Family Medicine; Referring Provider Family Medicine; Visit Provider Family Medicine
DX: E66.9 Obesity, unspecified (principal); R60.9 Edema, unspecified
CPT/HCPCS: 36415; 80048; 84443; 85025

== ENCOUNTER → 2020-08-30 11:51 | Outpatient (CLI) | payer MEDICAID, SELFPAY ==
[2020-08-30 15:48] LABS: Thyroid Stim Hormone (TSH) 0.77 uIU/mL (0.358-3.74)
[2020-09-01 19:54] LABS: Thyroid Peroxidase AB 9 IU/mL (0-34)
== END ==
PROVIDERS: PCP Family Medicine; Referring Provider Family Medicine; Visit Provider Family Medicine
DX: E03.9 Hypothyroidism, unspecified (principal)
CPT/HCPCS: 36415; 84439; 84443; 84481; 86376

== ENCOUNTER → 2020-10-10 10:49 | Outpatient (CLI) | payer MEDICAID, SELFPAY ==
--- NOTE | 2020-10-10 10:56 | US_ITS ---
STUDY: RENAL ULTRASOUND - COMPLETE REASON FOR EXAM: Female, 40 years old. History of recurrent UTIs. TECHNIQUE: Ultrasound evaluation of the kidneys was performed with real-time and static garvin-scale imaging. COMPARISON: None. FINDINGS: RIGHT KIDNEY: Normal location of the right kidney, which is normal in size. The right kidney measures 10.1 cm x 5.1 cm x 5.5 cm. There is a normal cortex of the right kidney. The renal cortex measures 1.2 cm. There is no right renal mass or cyst. There are no right renal calculi. There is no right hydronephrosis. DISTAL RIGHT URETER: There is non-visualization of the distal right ureter. There is no demonstrated right ureterovesical junction calculus. There is a visualized right ureteral jet. LEFT KIDNEY: Normal location of the left kidney, which is normal in size. The left kidney measures 11 cm x 5.5 cm x 4.7 cm. There is a normal cortex of the left kidney. The renal cortex measures 1.1 cm. There is no left renal mass or cyst. There is a nonobstructive 6 mm x 7 mm calculus in the left kidney. There is no left hydronephrosis. DISTAL LEFT URETER: There is non-visualization of the distal left ureter. There is no demonstrated left ureterovesical junction calculus. There is a visualized left ureteral jet. BLADDER: The distended urinary bladder has a volume of 106 ml. There is a normal wall thickness of the distended urinary bladder. There is no demonstrated mass within the urinary bladder. There are no demonstrated bladder calculi. US/Kidney and Bladder IMPRESSION: 6 mm x 7 mm nonobstructive left renal calculus. Electronically Signed: Francisco Lopez MD at 12:44 EDT , Service support ,
== END ==
PROVIDERS: PCP Family Medicine; Referring Provider Urology; Visit Provider Urology
DX: N39.0 Urinary tract infection, site not specified (principal)
CPT/HCPCS: 76770

== ENCOUNTER 2020-10-22 08:26 | Emergency (ER) | payer MEDICAID, SELFPAY ==
[2020-10-22 08:27] VITALS: BP 122/83; PULSE 77; RESP 18; TEMP 36.2; O2SAT 97; BMI 28.3
--- NOTE | 2020-10-22 08:39 | CT_ITS ---
STUDY: CT ABDOMEN AND PELVIS WITHOUT CONTRAST REASON FOR EXAM: Female, 40 years old. Eval kidney stone. Bilateral flank pain. RADIATION DOSAGE (If Supplied By Facility): CTDIvol = ( 12.25 ) mGy, DLP = ( 658.24 ) mGycm TECHNIQUE: Transaxial images were obtained from the dome of the diaphragm to the symphysis pubis without oral contrast, and without intravenous contrast. Sagittal and coronal images were reconstructed. Individualized dose optimization techniques were used for this CT. COMPARISON: Comparison is made with prior study dated 03/21/2018. FINDINGS: There now is evidence of patchy bibasilar infiltrates. The visualized portions of the heart are within normal limits. Normal liver. The patient is status post cholecystectomy. Normal spleen. Normal pancreas. Normal bilateral adrenal glands. Punctate calculus in the mid posterior aspect of the right kidney. 2 mm calculus in the lower pole calyx of the right kidney. Punctate calculus is seen in the upper pole calyx of the left kidney. Normal visualized stomach. Normal small intestine. Normal colon. The appendix is visualized and appears normal. Normal abdominal aorta. Normal inferior vena cava. Normal retroperitoneum. Normal urinary bladder. Calcified phleboliths are seen in the pelvis. There is a small umbilical hernia containing fat. Normal osseous structures. CT/Abdomen/Pelvis without Cont IMPRESSION: Patchy bibasilar infiltrates. Small nonobstructive bilateral intrarenal calculi. Electronically Signed: Francisco Lopez MD at 9:40 EDT , Service support ,
--- NOTE | 2020-10-22 08:50 | EDS_ITS ---
HPI History of Present Illness Chief Complaint: Flank Pain Informant: patient Narrative Narrative: Patient is a 40-year-old female who presents to the emergency department after being sent in by her urologist. She was diagnosed with a 7 mm kidney stone by ultrasound. The urologist was requesting a CT scan as her pain and nausea have not been improving. Her symptoms have been present for the past week. No history of kidney stones previously. She denies any urinary symptoms. She currently rates her pain as a 9 out of 10 which is mostly in the lower abdominal region. No known aggravating or relieving factors. She has been nauseous and vomiting. No chest pain or shortness of breath. She has had slightly runny stools but otherwise no blood or black tarry stools. She has not been taking anything for her symptoms. [facility] Medical History Abdominal pain Anxiety HLD (hyperlipidemia) HTN (hypertension) IBS (irritable bowel syndrome) Insomnia Major depressive disorder, recurrent, unspecified Migraine Opioid use disorder panic Personality disorder, unspecified Home Medications medroxyprogesterone 150 mg IM .[id number] 03/09/15 [History Last Taken 05/31/18] gabapentin 300 mg PO BID 08/09/16 [History Last Taken 12/01/19] dicyclomine 20 mg PO 4X/DAY PRN 04/03/17 [History Last Taken 12/01/19] atorvastatin 20 mg PO QHS 10/13/17 [History Last Taken 11/30/19] nortriptyline [Pamelor] 100 mg PO QHS 10/13/17 [History Last Taken 11/30/19] omeprazole 40 mg PO DAILY #30 capsule. 10/15/17 [Rx Last Taken 12/01/19] hydroxyzine pamoate [Vistaril] 50 mg PO BID 07/27/18 [History Last Taken 12/01/19] trazodone 200 mg PO QHS 11/12/18 [History Last Taken 11/30/19] topiramate 25 mg PO DAILY 11/24/18 [History Last Taken 12/01/19] duloxetine 120 mg PO DAILY 06/02/19 [History Last Taken 12/01/19] quetiapine 200 mg PO DAILY 06/02/19 [History Last Taken 12/01/19] cyclobenzaprine 10 mg PO TID PRN #15 tab 05/03/20 [Rx Last Taken Unknown] ibuprofen 800 mg PO TID PRN PRN #20 tab 05/03/20 [Rx Last Taken Unknown] propranolol 20 mg PO BID 05/03/20 [History Last Taken Unknown] cephalexin 500 mg PO BID 10 Days #20 cap 10/22/20 [Rx Last Taken Unknown] Allergy/AdvReac Type Severity Reaction Status Date / Time aspirin AdvReac Nausea Verified 10/22/20 08:27 Family History Father Hypertension Heart disease Brother CAD (coronary artery disease) Myocardial infarction Surgical History S/P laparoscopic cholecystectomy Social History Smoking Status: Current every day smoker tobacco type: cigarettes ROS ROS ED Constitutional Constitutional ED: Denies chills or fever(s) Eyes Eyes: Denies change in vision ENT ENT ED: Denies epistaxis or rhinorrhea Cardiovascular Cardiovascular: Denies chest pain or palpitations Respiratory/Chest Respiratory/Chest: Denies cough, dyspnea or dyspnea on exertion Gastrointestinal Gastrointestinal: Reports abdominal pain, diarrhea, nausea and vomiting Genitourinary Genitourinary ED: Denies dysuria, hematuria or urinary frequency Musculoskeletal Musculoskeletal: Reports back pain; Denies neck pain Integumentary Denies rash Neurologic Neurologic: Denies dizziness, headache(s) or weakness EXAM Physical Exam Const Vital Signs: 10/22/20 08:27 10/22/20 11:42 Temperature 97.2 F L Temperature Source Temporal Pulse Rate 77 71 Respiratory Rate 18 Blood Pressure 122/83 H 100/76 Blood Pressure Mean 96 Pulse Ox 97 Oxygen Delivery Method Room Air Positive well nourished and well developed General Appearance ED: well developed and NAD HEENT Reports normocephalic, head/scalp atraumatic and moist mucous membranes Eyes PERRL and EOMs intact bilaterally Neck supple Chest Wall inspection of chest normal Resp normal respiratory effort and clear to auscultation bilaterally Auscultation: Negative for rales, rhonchi or wheezes Cardio regular rate, regular rhythm and no murmurs GI normal to inspection, nondistended, normoactive bowel sounds and non-tender Palpation: soft; Negative for guarding or rebound tenderness present Negative for no CVA tenderness Extremity normal to inspection General Extremety ED: Negative for edema or tenderness General Extremity: Negative for edema Neuro oriented x3, CN's II-XII intact bilaterally and no sensory deficits noted Sensorium / Orientation: alert Motor Exam: strength 5/5 throughout Psych mental status grossly normal Skin no rashes or lesions noted MDM MDM MDM Narrative Medical decision making narrative: Patient presents to the ED for intractable pain and nausea secondary to kidney stone. Her urologist wanted her to be evaluated with CT scan. Will treat symptomatically with a dose of Toradol and Zofran. Basic lab work obtained as her symptoms have been present over the past week. Patient's lab work-up did not reveal any significant acute abnormality. White blood cell count within normal limits. Urine does show evidence of urinary tract infection. CT scan did not show any evidence of obstructing stone. There were incidental infiltrate seen in the lower chest bilaterally. Patient denies any cough, fever/chills. If she develops any symptoms she needs to be reevaluated for this. We will hold off on any treatment for pneumonia. She denies having her Covid vaccine. At this time we will treat her UTI with Keflex. She is going to follow-up with her PCP and urologist. Return precautions are reviewed. She understands and is agreeable to plan. Discharged home in stable condition. All questions were answered. Lab Data Labs: Laboratory Results - last 24 hr 10/22/20 10/22/20 10/22/20 08:50 08:50 09:05 WBC 6.0 RBC 4.91 Hgb 14.2 Hct 44.1 MCV 89.8 MCH 28.9 MCHC 32.2 RDW Std Deviation 48.1 H RDW Coeff of Raquel 14.7 H Plt Count 332 MPV 9.2 Immature Gran % (Auto) 0.500 Neut % (Auto) 60.4 Lymph % (Auto) 30.1 [place] % (Auto) 6.2 Eos % (Auto) 1.5 Baso % (Auto) 1.3 H Absolute Neuts (auto) 3.6 Absolute Lymphs (auto) 1.79 Nucleated RBC % 0 Sodium 140 Potassium 3.3 L Chloride 104 Carbon Dioxide 27.0 Anion Gap 9 BUN 12 Creatinine 1.11 H Estim Creat Clear Calc 73.58 Est GFR (MDRD) Af Amer 70 Est GFR (MDRD) Non-Af 58 L BUN/Creatinine Ratio 10.8 Glucose 79 Calcium 8.8 Urine Color Yellow Urine Clarity Sl. Cloudy Urine pH 5.0 Ur Specific [place] 1.025 Urine Protein 30 H Urine Glucose (UA) Normal Urine Ketones 15 H Urine Occult Blood 10 H Urine Nitrite Negative Urine Bilirubin 1 H Urine Urobilinogen 1 H Ur Leukocyte Esterase 500 H Urine RBC 0-5 SEEN Urine WBC 25-50 SEEN Ur Squamous Epith Cells 0-5 SEEN Urine Bacteria 2+ Urine Mucus 0 SEEN Urine Test 10/22/20 09:45 WBC RBC Hgb Hct MCV MCH MCHC RDW Std Deviation RDW Coeff of Raquel Plt Count MPV Immature Gran % (Auto) Neut % (Auto) Lymph % (Auto) [place] % (Auto) Eos % (Auto) Baso % (Auto) Absolute Neuts (auto) Absolute Lymphs (auto) Nucleated RBC % Sodium Potassium Chloride Carbon Dioxide Anion Gap BUN Creatinine Estim Creat Clear Calc Est GFR (MDRD) Af Amer Est GFR (MDRD) Non-Af BUN/Creatinine Ratio Glucose Calcium Urine Color Urine Clarity Urine pH Ur Specific [place] Urine Protein Urine Glucose (UA) Urine Ketones Urine Occult Blood Urine Nitrite Urine Bilirubin Urine Urobilinogen Ur Leukocyte Esterase Urine RBC Urine WBC Ur Squamous Epith Cells Urine Bacteria Urine Mucus Urine Test Negative Radiography Diagnostic Testing: Radiology Impression Abdomen/Pelvis CT 10/22/20 08:39 IMPRESSION: Patchy bibasilar infiltrates. Small nonobstructive bilateral intrarenal calculi. Electronically Signed: Francisco Lopez MD at 9:40 EDT , Service support , Discharge Plan Triage Chief Complaint: Flank Pain ED Provider: Reyes Meyers Dx/Rx/DC Orders Clinical Impression: Abdominal pain Instructions: ED Urinary Tract Infections in Women Prescriptions: New cephalexin 500 mg capsule 500 mg PO BID 10 Days Qty: 20 RF: 0 No Action medroxyprogesterone 150 MG/ML syringe 150 mg IM .[id number] RF: 0 gabapentin 300 MG capsule 300 mg PO BID RF: 0 dicyclomine 10 MG capsule 20 mg PO 4X/DAY PRN (Reason: ibs) RF: 0 atorvastatin 40 MG tablet 20 mg PO QHS RF: 0 nortriptyline [Pamelor] 50 MG capsule 100 mg PO QHS RF: 0 omeprazole 40 MG capsule,delayed release(DR/EC) 40 mg PO DAILY Qty: 30 RF: 2 hydroxyzine pamoate [Vistaril] 50 MG capsule 50 mg PO BID RF: 0 trazodone 100 MG tablet 200 mg PO QHS RF: 0 topiramate 25 tablet 25 mg PO DAILY RF: 0 quetiapine 200 MG tablet extended release 24 hr 200 mg PO DAILY RF: 0 duloxetine 30 MG capsule 120 mg PO DAILY RF: 0 propranolol 20 MG tablet 20 mg PO BID RF: 0 cyclobenzaprine 10 MG tablet 10 mg PO TID PRN (Reason: Muscle Spasm) Qty: 15 RF: 0 ibuprofen 800 MG tablet 800 mg PO TID PRN PRN (Reason: Pain) Qty: 20 RF: 0 Primary Care Provider: Tom Giraldo Referrals: Krystin Aggarwal MD [STAFF PHYSICIAN] - 3-5 Days if not improving Tom Giraldo MD [Primary Care Provider] - Disposition Disposition: Home, self care Discharge Date/Time: 10/22/20 11:43
[2020-10-22] MEDS: Ketorolac 15 MG/ML Vial IV (09:04)
[2020-10-22] MEDS: Ondansetron 4 MG/2 ML Vial IV (09:04)
[2020-10-22 09:05] LABS: Absolute Lymphocyte Count 1.79 X10^3/uL (0.83-4.51); Absolute Neutrophil Count 3.6 X10^3/uL (2.0-7.7); Basophil# 0.08 X10^3/uL; Basophil% 1.3 % (0-1); Eosinophil# 0.09 X10^3/uL; Eosinophils% 1.5 % (0-5); Hematocrit 44.1 % (37-47); Hemoglobin 14.2 g/dL (12.0-15.0); Lymphocyte # 1.79 X10^3/ul (0.83-4.51); Lymphocyte % 30.1 % (19-41); Mean Corp Hgb Conc 32.2 g/dL (32-36); Mean Corpuscular Hgb 28.9 pg (27.0-32.0); Mean Corpuscular Volume 89.8 fL (81-99); Mean Platelet Vol. 9.2 fl (6.2-12.0); Monocyte# 0.37 X10^3/uL; Monocyte% 6.2 % (0-10); NRBC Flagged by Analyzer 0 % (0-5); Neutrophil # 3.59 X10^3/uL (2.7-7.7); Neutrophil % 60.4 % (47-70); Platelet Count 332 K/mm3 (150-450); RBC Distribution Width CV 14.7 % (11.6-14.6); RBC Distribution Width SD 48.1 fl (35.1-43.9); Red Blood Count 4.91 M/mm3 (4.2-5.4)
[2020-10-22 09:13] LABS: Mucous, Urine 0 SEEN /hpf (<or=2+)
[2020-10-22 09:17] LABS: Color, Urine Yellow (Yellow); Glucose, Dipstick Normal (Normal); Ketone-Dipstick 15 mg/dl (Negative); Leukocyte Esterase-Dipstick 500 /ul (Negative); Nitrite-Dipstick Negative (Negative); Occult Blood-Urine 10 /ul (Negative); Protein-Dipstick 30 mg/dl (Negative); Specific Gravity, Urine 1.025 (1.002-1.030); Urine Clarity Sl. Cloudy (Clear); Urine Urobilinogen 1 mg/dl (Normal)
[2020-10-22 09:17] LABS: Anion Gap 9 (5-15); BUN 12 mg/dL (7-18); BUN/Creat Ratio 10.8 RATIO (10-20); Calcium,Total 8.8 mg/dL (8.5-10.1); Chloride 104 mmol/L (98-107); Creatinine, Serum 1.11 mg/dL (0.55-1.02); EST Glomerular Filtration Rate 58 mL/min (>60); Est Glom Filt Rate - Afr Amer 70 mL/min (>60); Estimated Creatinine Clearance 73.58 ml/min; Glucose 79 mg/dL (74-106); Potassium 3.3 mmol/L (3.5-5.1); Sodium Level 140 mmol/L (136-145)
[2020-10-22 09:18] LABS: Urine Bilirubin Dipstick 1 mg/dL (Negative)
[2020-10-22 09:27] LABS: Bacteria 2+ /hpf (None Seen); Red Blood Cells-Urine 0-5 SEEN /hpf (0-5); Squamous Epithelial Cells - UA 0-5 SEEN /hpf (5-10); White Blood Cells 25-50 SEEN /hpf (0-5)
[2020-10-22] MEDS: Morphine 4 MG/ML Syringe IV (09:53)
--- NOTE | 2020-10-22 10:27 | NURSING ---
DR DAY PAGED
[2020-10-22 10:58] LABS: Internal QC Validated? YES +Cl - CLEAR BKGD; Pregnancy, Urine Negative Negative
[2020-10-22 11:42] VITALS: BP 100/76; PULSE 71
== END 2020-10-22 11:43 | disposition home or self-care (01) ==
PROVIDERS: Emergency Provider Emergency Medicine; PCP Family Medicine
DX: R10.30 Lower abdominal pain, unspecified (principal); N39.0 Urinary tract infection, site not specified; N20.0 Calculus of kidney; F41.9 Anxiety disorder, unspecified; E78.5 Hyperlipidemia, unspecified; I10 Essential (primary) hypertension; F32.9 Major depressive disorder, single episode, unspecified; F17.210 Nicotine dependence, cigarettes, uncomplicated; Z79.899 Other long term (current) drug therapy
CPT/HCPCS: 74176; 80048; 81001; 81025; 85025; 96374; 96375; 99283; A4216; J2405

== ENCOUNTER 2020-10-27 18:26 | Emergency (ER) | payer MEDICAID, SELFPAY ==
[2020-10-27 18:27] VITALS: BP 118/94; PULSE 87; RESP 16; TEMP 36.6; O2SAT 98; BMI 22.4
[2020-10-27 18:29] VITALS: BP 118/94; PULSE 87; RESP 16; TEMP 36.6; O2SAT 98
--- NOTE | 2020-10-27 18:44 | EX.ED.DYSGE1 ---
HPI History of Present Illness Chief Complaint: Flank Pain Detail of Chief Complaint: Unable to urinate Informant: patient Onset/Context/Timing Current Severity: Moderate Maximum Severity: Moderate Narrative Narrative: Patient reports having lower abdominal and right flank pain for the past week or so. She has been seen by Dr. Aggarwal and had a CT scan performed. She has kidney stones in the kidneys but nothing in the ureters. Patient states today she is not able to urinate since 4 AM and feels like she needs to do so. Dr. Aggarwal called and asked that we get a bladder scan and Mckeon catheter if needed. [facility] Medical History Abdominal pain Anxiety HLD (hyperlipidemia) HTN (hypertension) IBS (irritable bowel syndrome) Insomnia Major depressive disorder, recurrent, unspecified Migraine Opioid use disorder panic Personality disorder, unspecified Home Medications medroxyprogesterone 150 mg IM .[id number] 03/09/15 [History Last Taken 05/31/18] gabapentin 300 mg PO BID 08/09/16 [History Last Taken 12/01/19] dicyclomine 20 mg PO 4X/DAY PRN 04/03/17 [History Last Taken 12/01/19] atorvastatin 20 mg PO QHS 10/13/17 [History Last Taken 11/30/19] nortriptyline [Pamelor] 100 mg PO QHS 10/13/17 [History Last Taken 11/30/19] omeprazole 40 mg PO DAILY #30 capsule. 10/15/17 [Rx Last Taken 12/01/19] hydroxyzine pamoate [Vistaril] 50 mg PO BID 07/27/18 [History Last Taken 12/01/19] trazodone 200 mg PO QHS 11/12/18 [History Last Taken 11/30/19] topiramate 25 mg PO DAILY 11/24/18 [History Last Taken 12/01/19] duloxetine 120 mg PO DAILY 06/02/19 [History Last Taken 12/01/19] quetiapine 200 mg PO DAILY 06/02/19 [History Last Taken 12/01/19] cyclobenzaprine 10 mg PO TID PRN #15 tab 05/03/20 [Rx Last Taken Unknown] ibuprofen 800 mg PO TID PRN PRN #20 tab 05/03/20 [Rx Last Taken Unknown] propranolol 20 mg PO BID 05/03/20 [History Last Taken Unknown] cephalexin 500 mg PO BID 10 Days #20 cap 10/22/20 [Rx Last Taken Unknown] Allergy/AdvReac Type Severity Reaction Status Date / Time aspirin AdvReac Nausea Verified 10/27/20 18:26 Family History Father Hypertension Heart disease Brother CAD (coronary artery disease) Myocardial infarction Surgical History S/P laparoscopic cholecystectomy Social History Smoking Status: Current every day smoker tobacco type: cigarettes ROS ROS ED Constitutional Constitutional ED: Denies chills or fever(s) Eyes Eyes: Denies change in vision ENT ENT ED: Denies sore throat Cardiovascular Cardiovascular: Denies chest pain Respiratory/Chest Respiratory/Chest: Denies cough or dyspnea Gastrointestinal Gastrointestinal: Reports abdominal pain and nausea; Denies diarrhea or vomiting Genitourinary Genitourinary ED: Denies dysuria Musculoskeletal Musculoskeletal: Denies back pain Integumentary Denies rash Neurologic Neurologic: Denies headache(s) or weakness Psychiatric Psychiatric: Denies anxiety or depression Endocrine Endocrinology: Denies polydipsia or polyuria Allergic/Immunologic Allergic/Immunologic ED: Denies urticaria EXAM Physical Exam Const Vital Signs: 10/27/20 18:27 10/27/20 18:29 Temperature 97.9 F 97.9 F Temperature Source Temporal Temporal Pulse Rate 87 87 Respiratory Rate 16 16 Blood Pressure 118/94 H 118/94 H Blood Pressure Mean 102 102 Pulse Ox 98 98 Oxygen Delivery Method Room Air Room Air Positive well nourished and well developed General Appearance ED: well developed HEENT Reports normocephalic and head/scalp atraumatic Eyes PERRL and EOMs intact bilaterally Neck supple Chest Wall inspection of chest normal and palpation of chest normal Resp normal respiratory effort and clear to auscultation bilaterally Cardio regular rate and regular rhythm GI Palpation: tender suprapubic; Negative for guarding or rebound tenderness present Extremity normal to inspection Neuro oriented x3 and no sensory deficits noted Sensorium / Orientation: alert Motor Exam: strength 5/5 throughout Psych mental status grossly normal Skin no rashes or lesions noted MDM MDM MDM Narrative Medical decision making narrative: Dr. Aggarwal had called in indicating that this patient had been seen and evaluated for same symptoms. She did asked that we obtain a bladder scan and place a Mckeon catheter if needed. Lab Data Attestation: I reviewed the patient's lab results. Labs: Laboratory Results - last 24 hr 10/27/20 19:15 Urine Color Yellow Urine Clarity Clear Urine pH 5.0 Ur Specific [place] 1.020 Urine Protein 30 H Urine Glucose (UA) Normal Urine Ketones 5 H Urine Occult Blood Negative Urine Nitrite Negative Urine Bilirubin 1 H Urine Urobilinogen 1 H Ur Leukocyte Esterase 25 H Urine RBC 0 SEEN Urine WBC 0-5 SEEN Ur Squamous Epith Cells 0-5 SEEN Urine Bacteria 0 SEEN Urine Mucus 0 SEEN Treatment and Re-Evaluation Comments:: Scan was performed and only showed max of 200 cc of urine. Because I was unsure if this was truly accurate Mckeon catheter was placed. She got between 150-250 cc of urine out. Urinalysis was obtained and unremarkable. Patient did ask for something for pain and nausea. I offered her anti-inflammatories and Zofran. She declined the anti-inflammatory stating it is a interacted with some of her other home medications. I advised her I would not give her narcotics at this time. Test results discussed with the patient. She was encouraged to increase her fluid intake. Mckeon catheter was removed prior to discharge. Recent CT was reviewed. Discharge Plan Triage Chief Complaint: Flank Pain ED Provider: Heide Gorman Dx/Rx/DC Orders Clinical Impression: Decreased urine output Instructions: ED Abdominal Pain Unkn Cause Fem Prescriptions: No Action medroxyprogesterone 150 MG/ML syringe 150 mg IM .[id number] RF: 0 gabapentin 300 MG capsule 300 mg PO BID RF: 0 dicyclomine 10 MG capsule 20 mg PO 4X/DAY PRN (Reason: ibs) RF: 0 atorvastatin 40 MG tablet 20 mg PO QHS RF: 0 nortriptyline [Pamelor] 50 MG capsule 100 mg PO QHS RF: 0 omeprazole 40 MG capsule,delayed release(DR/EC) 40 mg PO DAILY Qty: 30 RF: 2 hydroxyzine pamoate [Vistaril] 50 MG capsule 50 mg PO BID RF: 0 trazodone 100 MG tablet 200 mg PO QHS RF: 0 topiramate 25 tablet 25 mg PO DAILY RF: 0 quetiapine 200 MG tablet extended release 24 hr 200 mg PO DAILY RF: 0 duloxetine 30 MG capsule 120 mg PO DAILY RF: 0 propranolol 20 MG tablet 20 mg PO BID RF: 0 cyclobenzaprine 10 MG tablet 10 mg PO TID PRN (Reason: Muscle Spasm) Qty: 15 RF: 0 ibuprofen 800 MG tablet 800 mg PO TID PRN PRN (Reason: Pain) Qty: 20 RF: 0 cephalexin 500 mg capsule 500 mg PO BID 10 Days Qty: 20 RF: 0 Primary Care Provider: Tom Giraldo Referrals: Krystin Aggarwal MD [STAFF PHYSICIAN] - 5-7 Days Tom Giraldo MD [Primary Care Provider] - Disposition Disposition: Home, self care Discharge Date/Time: 10/27/20 20:49
[2020-10-27] MEDS: Ondansetron ODT 4 MG Tablet PO (19:00)
[2020-10-27 19:27] LABS: Bacteria 0 SEEN /hpf (None Seen); Mucous, Urine 0 SEEN /hpf (<or=2+); Red Blood Cells-Urine 0 SEEN /hpf (0-5)
[2020-10-27 19:29] LABS: Color, Urine Yellow (Yellow); Glucose, Dipstick Normal (Normal); Ketone-Dipstick 5 mg/dl (Negative); Leukocyte Esterase-Dipstick 25 /ul (Negative); Nitrite-Dipstick Negative (Negative); Occult Blood-Urine Negative /ul (Negative); Protein-Dipstick 30 mg/dl (Negative); Urine Clarity Clear (Clear); Urine Urobilinogen 1 mg/dl (Normal)
[2020-10-27 19:32] LABS: Urine Bilirubin Dipstick 1 mg/dL (Negative)
[2020-10-27 19:38] LABS: Squamous Epithelial Cells - UA 0-5 SEEN /hpf (5-10); White Blood Cells 0-5 SEEN /hpf (0-5)
== END 2020-10-27 20:49 | disposition home or self-care (01) ==
PROVIDERS: Emergency Provider Emergency Medicine; PCP Family Medicine
DX: R33.9 Retention of urine, unspecified (principal); F41.9 Anxiety disorder, unspecified; E78.5 Hyperlipidemia, unspecified; I10 Essential (primary) hypertension; F32.9 Major depressive disorder, single episode, unspecified; F17.210 Nicotine dependence, cigarettes, uncomplicated; Z79.899 Other long term (current) drug therapy
CPT/HCPCS: 51702; 81001; 99284; A4216

== ENCOUNTER → 2020-10-31 09:03 | Outpatient (CLI) | payer MEDICAID, SELFPAY ==
[2020-10-27 18:27] VITALS: BMI 22.4
--- NOTE | 2020-10-31 09:05 | RAD_ITS ---
STUDY: X-RAY - ABDOMEN/PELVIS REASON FOR EXAM: Female, 40 years old. KUB TECHNIQUE: Single AP view of the abdomen / pelvis. COMPARISON: Comparison is made with prior study of 07/14/2018. FINDINGS: Normal visualized lung bases. There is a moderate amount of colonic fecal material. The visualized liver, spleen and kidneys are grossly normal in size and morphology. Normal soft tissue structures. Normal visualized osseous structures. RAD/Abdomen Single View IMPRESSION: Moderate amount of fecal material is seen in the colon. Electronically Signed: Francisco Lopez MD at 15:14 EDT , Service support ,
== END ==
PROVIDERS: PCP Family Medicine; Referring Provider Urology; Visit Provider Urology
DX: N20.0 Calculus of kidney (principal)
CPT/HCPCS: 74018

== ENCOUNTER 2020-12-04 08:20 | Day surgery (SDC) | payer MEDICAID, SELFPAY ==
[2020-12-04] VITALS (8 sets, daily range): BP systolic 105–152; BP diastolic 3–126; PULSE 78–103; RESP 16–18; TEMP 36.1–36.8; O2SAT 93–100; BMI 28.1
--- NOTE | 2020-12-04 | CALC_PTH ---
PATIENT: KARLA LANCE [place] [facility] [id number] AGE/SX: 40/F ROOM: RE12/04/[address]: Dr. Krystin Aggarwal MD : 1980 BED: DIS: 12/04/2020 SPEC #: [id number] RECD: 12/04/20 13:08 STATUS: KIRAN ARMENDARIZ #: [id number] NOLBERTO: 12/04/20 00:[address]: Krystin Aggarwal DEPT: SURGICAL PATHOLOGY RECD BY: Rajesh Wright ENTERED: 12/04/20 13:08 SP TYPE: Calculi OTHR DR: Dr. Tom Giraldo MD Tissues: CALCULI Procedures: Surgery Specimen Level I HEADER OPERATION: Cysto, ureteroscopy, stent, basket retrieval PRE-OP DIAGNOSIS: Calculus of kidney, urge incontinence, nocturia TISSUE SUBMITTED: Bilateral ureteral calculi GROSS DIAGNOSIS Fragments of stone, clinically ureteral calculi, bilateral. SJ:heidi 12/05/2020 COMMENT The calculus is submitted in its entirety for chemical stone analysis. The results from this study will be reported separately. GROSS DESCRIPTION Received without fixative labeled with the patient's name and designated bilateral ureteral calculi. The specimen consists of three minute fragments of black stone measuring in aggregate 0.2 x 0.1 x 0.1 cm. The entire specimen is submitted for stone analysis. / BRISEYDA:heidi 12/04/20 CPT: 52093
--- NOTE | 2020-12-04 08:39 | PCM.OPRPT ---
Problems Associated Problem List Diagnoses (1) Kidney stones: Report of Operation Date of Procedure: 12/04/20 Pre-Operative Diagnosis: bilateral kidney stones, back pain Post-Operative Diagnosis: same Surgery/Procedure Performed:: cystoscopy, bilateral retrograde pyelograms, bilateral ureteroscopy stone basket removal, bilateral ureteral stent insertion Surgeon: Krystin Aggarwal Type of Anesthesia: General Specimen's removed: stone fragments Description of Procedure: The patient is a 40-year-old female with chronic back pain who presented to the office for further evaluation. On CT scan she was seen as having bilateral less than 2 mm stones. We discussed that this may not be the source of her discomfort. She desired to proceed with intervention. Informed consent was obtained. The patient was taken to the operating room and placed on the operating room table. Once anesthesia was probably administered the patient was placed into dorsal lithotomy position and was prepped and draped in usual sterile fashion. The cystoscope was inserted through the urethra under direct visualization into the urinary bladder. The bladder mucosa was visualized in its entirety and found to be without mass, erythema or abnormality. The patient's left ureteral orifice was carefully intubated with 8 [place] cone-tip catheter and contrast was injected in retrograde fashion under fluoroscopic visualization. There were no filling defects, evidence of obstruction or hydronephrosis identified. This process was then repeated on the patient's right side with the same normal findings. 2 separate 0.035 Glidewire's were then passed into the left ureteral orifice into the renal pelvis seen on fluoroscopy. One of the wires was used as a safety wire, the second wire was used for insertion of a ureteral reaccess sheath. This was inserted under visualization with fluoroscopy. The flexible ureteroscope was then inserted through the sheath into the renal pelvis. There were several areas in the calyces with calcifications seen that were within the tissue and could not be removed. There were 2 calcifications identified that were stone basket removed, each approximately 1 mm in size. After all fragments were removed, the ureteral reaccess sheath was removed under direct visualization with the ureteroscope finding no injury to the ureter. The safety wire was then used to place a 6 [place] 26 cm stent with good positioning in the renal pelvis as well as the urinary bladder. The same process was repeated on the patient's right side. There were several fragments of stones seen on the right side there were irrigated into the bladder. It is likely that 1 or 2 fragments remain and were unable to be basket retrieved secondary to small size. The ureteroscope was used to visualize the ureter with and found to be without injury. Upon entry into the urinary bladder a stone fragment was seen within the urinary bladder. The safety wire was then used to insert a 6 [place] 26 cm stent without difficulty. Good positioning was achieved in the renal pelvis as well as the urinary bladder. The patient's bladder was then emptied and the case was terminated. She was awakened and taken to the recovery room in good condition. There were no complications during this procedure. Grafts/Implants Used: ureteral stents 6x26cm bilaterally Complications none Admit VTE Documentation VTE Present on Admission: Yes VTE Mechan Device Prophylaxis: SCD's VTE Pharm Prophylaxis ordered?: No Reason prophylaxis not ordered:: Treatment Not Indicated
--- NOTE | 2020-12-04 08:41 | PCM.DC ---
Discharge Instructions Diet Discharge Diet: No restrictions Activity Discharge Activity: No Restrictions May resume sexual activity in: No Restrictions Dressing / Incision Call your doctor if you observe: Fever of 101 or Higher, Inability to urinate, Inability to have a bowel movement and Uncontrolled pain Follow Up Care Please Follow Up With: Krystin Aggarwal MD When: call office for appt Test Results: Test results from this visit will be discussed in further detail at your follow-up appointment, if applicable. Discharge Plan Admission Attending Provider: Krystin Aggarwal Primary Care Provider: Tom Giraldo Discharge Orders/Prescriptions Prescriptions: New oxycodone-acetaminophen [oxycodone-acetaminophen] 1 TABLET tablet 2 tab PO Q8H PRN PRN (Reason: Pain) 7 Days Qty: 20 RF: 0 cephalexin [cephalexin] 500 MG capsule 500 mg PO Q12 3 Days Qty: 6 RF: 0 phenazopyridine [Pyridium] 200 MG tablet 200 mg PO TID PRN PRN (Reason: Bladder Spasms) 7 Days Qty: 30 RF: 0 Continued medroxyprogesterone 150 MG/ML syringe 150 mg IM .[id number] RF: 0 gabapentin 300 MG capsule 300 mg PO BID RF: 0 dicyclomine 10 MG capsule 20 mg PO 4X/DAY PRN (Reason: ibs) RF: 0 atorvastatin 40 MG tablet 20 mg PO QHS RF: 0 nortriptyline [Pamelor] 50 MG capsule 100 mg PO QHS RF: 0 omeprazole 40 MG capsule,delayed release(DR/EC) 40 mg PO DAILY Qty: 30 RF: 2 hydroxyzine pamoate [Vistaril] 50 MG capsule 50 mg PO BID RF: 0 trazodone 100 MG tablet 200 mg PO QHS RF: 0 topiramate 25 tablet 25 mg PO DAILY RF: 0 quetiapine 200 MG tablet extended release 24 hr 200 mg PO DAILY RF: 0 duloxetine [Cymbalta] 30 MG capsule 120 mg PO DAILY RF: 0 propranolol 20 MG tablet 20 mg PO BID RF: 0 ibuprofen 800 MG tablet 800 mg PO TID PRN PRN (Reason: Pain) Qty: 20 RF: 0 tizanidine 4 mg tablet 4 mg PO TID PRN (Reason: Pain) RF: 0 potassium 99 mg Tablet 99 mg PO DAILY RF: 0 temazepam 15 mg capsule 15 mg PO QHS RF: 0 hydroxyzine HCl 100 mg Tablet 100 mg PO QHS RF: 0 lamotrigine 100 mg tablet 100 mg PO DAILY RF: 0 Referrals / Follow Up: Tom Giraldo MD [Primary Care Provider] - Disposition Disposition (needs filled in before D/C Order can be placed): Home, Self Care
[2020-12-04 08:47] LABS: Internal QC Validated? YES +Cl - CLEAR BKGD; Pregnancy, Urine Negative Negative
[2020-12-04] MEDS: Lactated Ringers 1,000 ML 100 ML IV (09:02)
[2020-12-04] MEDS: Cefazolin 2 GM in 0.9% Normal Saline 100 ML IV (10:00)
[2020-12-04] MEDS: Acetaminophen 325 MG Tablet PO (12:09)
[2020-12-04] MEDS: oxyCODONE 5 MG Tablet PO (12:09)
[2020-12-18 12:46] LABS: Source URETER
[2020-12-18 12:48] LABS: Ca Oxalate, Dihydrate 70
[2020-12-18 12:49] LABS: Ca Oxalate, Monohydrate 20
== END 2020-12-04 13:03 | disposition home or self-care (01) ==
LOC: SDC 08:20 → AC 08:21
PROVIDERS: PCP Family Medicine; Referring Provider Urology; Visit Provider Urology
PROC: 0TJ98ZZ Inspection of Ureter, Via Natural or Artificial Opening Endoscopic (ICD-10-PCS; CPT 52352; principal; 2020-12-04 09:55)
DX: N20.1 Calculus of ureter (principal); I10 Essential (primary) hypertension; K21.9 Gastro-esophageal reflux disease without esophagitis; F41.9 Anxiety disorder, unspecified; M79.7 Fibromyalgia; F32.9 Major depressive disorder, single episode, unspecified; F17.200 Nicotine dependence, unspecified, uncomplicated; Z86.718 Personal history of other venous thrombosis and embolism; Z79.899 Other long term (current) drug therapy
CPT/HCPCS: 52332; 52352; 76000; 81025; 82360; 87426; 88300; C9803; J7120; C2617; J2405

== ENCOUNTER → 2020-12-05 14:58 | Outpatient (CLI) | payer MEDICAID, SELFPAY ==
[2020-12-04 08:57] VITALS: BMI 28.1
--- NOTE | 2020-12-05 15:05 | RAD_ITS ---
STUDY: X-RAY - ABDOMEN/PELVIS REASON FOR EXAM: Female, 40 years old. STONES TECHNIQUE: Single AP view of the abdomen / pelvis. COMPARISON: Comparison is made with prior study dated 07/03/2020. FINDINGS: Normal visualized lung bases. There is an unremarkable bowel gas pattern. There is evidence of bilateral double-J stent catheters in situ. There are calcified phleboliths in the pelvis. Normal visualized osseous structures. RAD/Abdomen Single View IMPRESSION: Bilateral double-J stent catheters are seen. Electronically Signed: Francisco Lopez MD at 15:47 EDT , Service support ,
== END ==
PROVIDERS: PCP Family Medicine; Referring Provider Urology; Visit Provider Urology
DX: N20.0 Calculus of kidney (principal)
CPT/HCPCS: 74018

== ENCOUNTER 2020-12-09 19:27 | Observation (INO) | payer MEDICAID, SELFPAY ==
[2020-12-04 08:57] VITALS: BMI 28.1
[2020-12-09 19:28] VITALS: BP 115/76; PULSE 90; RESP 18; TEMP 36.6; O2SAT 98; BMI 28.7
[2020-12-09 19:43] LABS: Mucous, Urine 0 SEEN /hpf (<or=2+)
[2020-12-09 19:47] LABS: Color, Urine Yellow (Yellow); Glucose, Dipstick Normal (Normal); Ketone-Dipstick 5 mg/dl (Negative); Leukocyte Esterase-Dipstick 500 /ul (Negative); Nitrite-Dipstick Positive (Negative); Occult Blood-Urine 250 /ul (Negative); Protein-Dipstick 30 mg/dl (Negative); Urine Clarity Sl. Cloudy (Clear); Urine Urobilinogen 8 mg/dl (Normal)
[2020-12-09 19:56] LABS: Urine Bilirubin Dipstick 3 mg/dL (Negative)
[2020-12-09 19:57] LABS: Bacteria 2+ /hpf (None Seen); Red Blood Cells-Urine 50-100 SEEN /hpf (0-5); Squamous Epithelial Cells - UA 25-50 SEEN /hpf (5-10); White Blood Cells 50-100 SEEN /hpf (0-5)
--- NOTE | 2020-12-09 20:48 | CT_ITS ---
STUDY: CT ABDOMEN AND PELVIS WITHOUT CONTRAST REASON FOR EXAM: Female, 40 years old. Eval kidney stones RADIATION DOSAGE (If Supplied By Facility): CTDIvol = ( 12.85 ) mGy, DLP = ( 709.78 ) mGycm TECHNIQUE: Transaxial images were obtained from the dome of the diaphragm to the symphysis pubis without oral contrast, and without intravenous contrast. Sagittal and coronal images were reconstructed. Individualized dose optimization techniques were used for this CT. COMPARISON: None. FINDINGS: Bilateral basilar atelectasis. The visualized portions of the heart are within normal limits. Normal liver. Nonvisualization of the gallbladder. No significant dilatation of the extrahepatic biliary system. Normal spleen. Normal pancreas. Normal bilateral adrenal glands. A previously noted stone in the right kidney has likely migrated into the distal right ureter. Mild distal right hydroureter. Nonobstructive punctate stones in the left kidney. Normal visualized stomach. Normal small intestine. Normal colon. The appendix is visualized and appears normal. Normal abdominal aorta. Normal inferior vena cava. Normal retroperitoneum. Normal urinary bladder. Normal abdominal wall. Normal osseous structures. CT/Abdomen/Pelvis without Cont IMPRESSION: Right renal stone has migrated into the distal right ureter with mild right hydroureter. Nonobstructive punctate left renal calculi. Electronically Signed: Cecilio Art DO at 22:06 EDT Tel [phone], Service support ,
[2020-12-09] MEDS: Morphine 4 MG/ML Syringe IV (21:11)
[2020-12-09 21:19] LABS: Absolute Lymphocyte Count 2.09 X10^3/uL (0.83-4.51); Absolute Neutrophil Count 6.8 X10^3/uL (2.0-7.7); Basophil# 0.05 X10^3/uL; Basophil% 0.5 % (0-1); Eosinophil# 0.13 X10^3/uL; Eosinophils% 1.3 % (0-5); Hematocrit 40.4 % (37-47); Lymphocyte # 2.09 X10^3/ul (0.83-4.51); Lymphocyte % 21.7 % (19-41); Mean Corp Hgb Conc 32.2 g/dL (32-36); Mean Corpuscular Hgb 29.3 pg (27.0-32.0); Mean Corpuscular Volume 91.2 fL (81-99); Mean Platelet Vol. 8.9 fl (6.2-12.0); Monocyte# 0.51 X10^3/uL; Monocyte% 5.3 % (0-10); NRBC Flagged by Analyzer 0 % (0-5); Neutrophil # 6.79 X10^3/uL (2.7-7.7); Neutrophil % 70.4 % (47-70); Platelet Count 322 K/mm3 (150-450); RBC Distribution Width CV 15.4 % (11.6-14.6); RBC Distribution Width SD 50.7 fl (35.1-43.9); Red Blood Count 4.43 M/mm3 (4.2-5.4); White Blood Count 9.7 K/mm3 (4.4-11.0)
--- NOTE | 2020-12-09 21:22 | EDS_ITS ---
HPI HPI - GI History of Present Illness Chief Complaint: Flank Pain Informant: patient Narrative Narrative: Patient is a 40-year-old female who presents to the emergency department for continued bilateral flank and suprapubic pain. She does have a history of kidney stones and recently had stents placed as well as stone retrieval's with her urologist. She has continued pain so she was referred back to the emergency department for admission. Patient states her pain is currently 9 out of 10. She has been using home pain medications as well as Tylenol. She denies any fevers or chills. No dysuria, hematuria or increased frequency. She denies any change in bowel movements. No nausea or vomiting. She has any chest pain or shortness of breath. [facility] Medical History (Updated 12/09/20 @ 22:[address] Reyes Meyers ) Abdominal pain Anxiety Arthritis Back pain Blackout Depression DVT (deep venous thrombosis) Fibromyalgia Gastric reflux High cholesterol History of edema History of IBS History of steroid therapy History of stress test HLD (hyperlipidemia) HTN (hypertension) IBS (irritable bowel syndrome) Injury of back Insomnia Kidney stones Kidney stones Major depressive disorder, recurrent, unspecified Migraine Opioid use disorder panic Personality disorder, unspecified Shortness of breath on exertion Smoker Walker as ambulation aid Wears dentures Home Medications medroxyprogesterone 150 mg IM .[id number] 03/09/15 [History Last Taken 05/31/18] gabapentin 300 mg PO BID 08/09/16 [History Last Taken 12/01/19] dicyclomine 20 mg PO 4X/DAY PRN 04/03/17 [History Last Taken 12/01/19] atorvastatin 20 mg PO QHS 10/13/17 [History Last Taken 11/30/19] nortriptyline [Pamelor] 100 mg PO QHS 10/13/17 [History Last Taken 11/30/19] omeprazole 40 mg PO DAILY #30 capsule. 10/15/17 [Rx Last Taken 12/01/19] hydroxyzine pamoate [Vistaril] 50 mg PO BID 07/27/18 [History Last Taken 12/01/19] trazodone 200 mg PO QHS 11/12/18 [History Last Taken 11/30/19] topiramate 25 mg PO DAILY 11/24/18 [History Last Taken 12/01/19] duloxetine [Cymbalta] 120 mg PO DAILY 06/02/19 [History Last Taken 12/01/19] quetiapine 200 mg PO DAILY 06/02/19 [History Last Taken 12/01/19] ibuprofen 800 mg PO TID PRN PRN #20 tab 05/03/20 [Rx Last Taken Unknown] propranolol 20 mg PO BID 05/03/20 [History Last Taken 12/04/20 07:00] hydroxyzine HCl 100 mg PO QHS 11/27/20 [History Last Taken Unknown] lamotrigine 100 mg PO DAILY 11/27/20 [History Last Taken Unknown] potassium 99 mg PO DAILY 11/27/20 [History Last Taken Unknown] temazepam 15 mg PO QHS 11/27/20 [History Last Taken Unknown] tizanidine 4 mg PO TID PRN 11/27/20 [History Last Taken Unknown] cephalexin 500 mg PO Q12 3 Days #6 capsule 12/04/20 [Rx Last Taken Unknown] oxycodone-acetaminophen 2 tab PO Q8H PRN PRN 7 Days #20 tab 12/04/20 [Rx Last Taken Unknown] phenazopyridine [Pyridium] 200 mg PO TID PRN PRN 7 Days #30 tab 12/04/20 [Rx Last Taken Unknown] Allergy/AdvReac Type Severity Reaction Status Date / Time aspirin AdvReac Nausea Verified 12/09/20 19:30 Family History Father Hypertension Heart disease Brother CAD (coronary artery disease) Myocardial infarction Surgical History History of esophagogastroduodenoscopy (EGD) S/P laparoscopic cholecystectomy Social History Smoking Status: Current every day smoker tobacco type: cigarettes ROS ROS ED Constitutional Constitutional ED: Denies chills or fever(s) Eyes Eyes: Denies change in vision ENT ENT ED: Denies epistaxis or rhinorrhea Cardiovascular Cardiovascular: Denies chest pain or palpitations Respiratory/Chest Respiratory/Chest: Denies cough, dyspnea or dyspnea on exertion Gastrointestinal Gastrointestinal: Reports abdominal pain; Denies nausea or vomiting Genitourinary Genitourinary ED: Denies dysuria, hematuria or urinary frequency Musculoskeletal Musculoskeletal: Reports back pain; Denies neck pain Integumentary Denies rash Neurologic Neurologic: Denies dizziness, headache(s) or weakness EXAM Physical Exam Const Vital Signs: 12/09/20 19:28 Temperature 97.9 F Temperature Source Temporal Pulse Rate 90 Respiratory Rate 18 Blood Pressure 115/76 Blood Pressure Mean 89 Pulse Ox 98 Oxygen Delivery Method Room Air Positive well nourished and well developed General Appearance ED: well developed and NAD HEENT Reports normocephalic, head/scalp atraumatic and moist mucous membranes Eyes PERRL and EOMs intact bilaterally Neck supple Resp normal respiratory effort and clear to auscultation bilaterally Auscultation: Negative for rales, rhonchi or wheezes Cardio regular rate, regular rhythm and no murmurs GI normal to inspection, nondistended, normoactive bowel sounds GI Narrative: Suprapubic tenderness Palpation: soft; Negative for guarding or rebound tenderness present Back/Spine no CVA tenderness Extremity normal to inspection General Extremety ED: Negative for edema or tenderness General Extremity: Negative for edema Neuro oriented x3, CN's II-XII intact bilaterally and no sensory deficits noted Sensorium / Orientation: alert Motor Exam: strength 5/5 throughout Psych mental status grossly normal Skin no rashes or lesions noted MDM MDM MDM Narrative Medical decision making narrative: Patient presents to the emergency department for bilateral flank pain and suprapubic pain. She has been treated for kidney stones as an outpatient. Her urologist, Dr. Aggarwal did call and requested a CT scan. Urinalysis was obtained which did show signs of infection with 2+ bacteria as well as positive nitrates. We will start Rocephin. CT scan as well as basic lab work being obtained. She is given a dose of morphine for symptomatic treatment. Patient CT scan did show a ureteral stone which looks like it is migrating. Her urine does show signs of infection so she is treated with the Rocephin. No evidence of sepsis with this. Her creatinine is not elevated. Did discuss the case with her urologist who is willing to admit the patient. I did give her a dose of Phenergan as well as hydromorphone as she is still very symptomatic. Patient understands and is agreeable this plan. All questions were answered. She otherwise has remained stable throughout ED stay. Lab Data Labs: Laboratory Results - last 24 hr 12/09/20 12/09/20 12/09/20 19:40 21:12 21:12 WBC 9.7 RBC 4.43 Hgb 13.0 Hct 40.4 MCV 91.2 MCH 29.3 MCHC 32.2 RDW Std Deviation 50.7 H RDW Coeff of Raquel 15.4 H Plt Count 322 MPV 8.9 Immature Gran % (Auto) 0.800 Neut % (Auto) 70.4 H Lymph % (Auto) 21.7 [place] % (Auto) 5.3 Eos % (Auto) 1.3 Baso % (Auto) 0.5 Absolute Neuts (auto) 6.8 Absolute Lymphs (auto) 2.09 Nucleated RBC % 0 Sodium 142 Potassium 3.4 L Chloride 114 H Carbon Dioxide 23.0 Anion Gap 5 BUN 18 Creatinine 0.88 Estim Creat Clear Calc 92.81 Est GFR (MDRD) Af Amer 92 Est GFR (MDRD) Non-Af 76 BUN/Creatinine Ratio 20.6 H Glucose 93 Calcium 8.5 Urine Color Yellow Urine Clarity Sl. Cloudy Urine pH 5.0 Ur Specific [place] 1.020 Urine Protein 30 H Urine Glucose (UA) Normal Urine Ketones 5 H Urine Occult Blood 250 H Urine Nitrite Positive H Urine Bilirubin 3 H Urine Urobilinogen 8 H Ur Leukocyte Esterase 500 H Urine RBC 50-100 SEEN Urine WBC 50-100 SEEN Ur Squamous Epith Cells 25-50 SEEN Urine Bacteria 2+ Urine Mucus 0 SEEN Radiography Diagnostic Testing: Radiology Impression Abdomen/Pelvis CT 12/09/20 20:48 IMPRESSION: Right renal stone has migrated into the distal right ureter with mild right hydroureter. Nonobstructive punctate left renal calculi. Electronically Signed: Cecilio Art DO at 22:06 EDT Tel [phone], Service support , Discharge Plan Dx/Rx/DC Orders Clinical Impression: Kidney stone, Urinary tract infection Disposition Disposition: Acute Care Hospital [facility]
[2020-12-09 21:27] VITALS: RESP 16
[2020-12-09 21:34] LABS: Anion Gap 5 (5-15); BUN 18 mg/dL (7-18); BUN/Creat Ratio 20.6 RATIO (10-20); Calcium,Total 8.5 mg/dL (8.5-10.1); Chloride 114 mmol/L (98-107); Creatinine, Serum 0.88 mg/dL (0.55-1.02); EST Glomerular Filtration Rate 76 mL/min (>60); Est Glom Filt Rate - Afr Amer 92 mL/min (>60); Estimated Creatinine Clearance 92.81 ml/min; Glucose 93 mg/dL (74-106); Potassium 3.4 mmol/L (3.5-5.1); Sodium Level 142 mmol/L (136-145)
[2020-12-09] MEDS: proMETHazine 25 MG Tablet PO (21:47)
[2020-12-09] MEDS: HYDROmorphone 1 MG/ML Syringe IV (22:27)
[2020-12-09 22:34] VITALS: BP 126/96; PULSE 89; RESP 16; TEMP 36.7; O2SAT 98
[2020-12-09 23:14] VITALS: BMI 27.3
[2020-12-09 23:15] VITALS: BP 129/64; PULSE 90; RESP 18; TEMP 37.2; O2SAT 97
--- NOTE | 2020-12-09 23:32 | NURSING ---
pt has med list at home. states med list was updated for surgery which was 12/04.
[2020-12-10] MEDS: Dext 5%-0.45% NS 1,000 ML 125 ML IV ×3 (00:09→19:42)
[2020-12-10] MEDS: 0.9% Saline Lock 10 ML Syringe IV ×2 (00:09→14:36)
[2020-12-10] MEDS: Ciprofloxacin 400 MG/200 ML BAG 200 MG IV ×3 (00:10→22:10)
[2020-12-10] MEDS: HYDROmorphone 1 MG/ML Syringe IV ×8 (00:12→22:01)
[2020-12-10] MEDS: Ketorolac 30 MG/ML Syringe IV ×3 (01:14→20:31)
[2020-12-10] MEDS: Ondansetron 4 MG/2 ML Vial IV ×2 (01:14→14:37)
[2020-12-10 05:15] VITALS: BP 112/74; PULSE 79; RESP 16; TEMP 37.5; O2SAT 94
[2020-12-10] MEDS: hydrOXYzine PAM 25 MG Capsule 50 MG PO (05:30)
[2020-12-10 07:36] LABS: Internal QC Validated? YES +Cl - CLEAR BKGD; Pregnancy, Urine Negative Negative
[2020-12-10 07:38] VITALS: BP 123/76; PULSE 75; RESP 18; TEMP 36.7; O2SAT 97
[2020-12-10] MEDS: Topiramate 25 MG Tablet PO (10:45)
[2020-12-10] MEDS: Gabapentin 300 MG Capsule PO ×2 (10:45→22:04)
[2020-12-10] MEDS: Propranolol 10 MG Tablet 20 MG PO ×2 (10:45→22:04)
[2020-12-10] MEDS: DULoxetine Hcl 60 MG Capsule 120 MG PO (10:45)
[2020-12-10] MEDS: lamoTRIgine 100 MG Tablet PO (10:45)
[2020-12-10] MEDS: Pantoprazole Sodium 40 MG Tablet PO (10:46)
[2020-12-10 13:08] VITALS: BP 112/67; PULSE 85; RESP 16; TEMP 36.6; O2SAT 96
[2020-12-10 16:35] VITALS: BP 109/65; PULSE 75; RESP 18; TEMP 36.9; O2SAT 96
--- NOTE | 2020-12-10 17:11 | HP.PCM_ITS ---
HPI - General General Date of Admission: 12/09/20 HPI Narrative KARLA LANCE, is a 40 F who presents with acute onset uncontrolled right abdominal pain following removal of bilateral ureteral stents for ureteroscopy and stone removal. She continues to have uncontrolled pain today and reports nausea. She is eating without difficulty. She would like to proceed with intervention and she feels the pain medication is not adequately addressing her pain. [facility] Medical History (Updated 12/10/20 @ 17:[address] Krystin Aggarwal MD) Abdominal pain Anxiety Arthritis Back pain Blackout Chest pain Chronic pain Depression DVT (deep venous thrombosis) Fibromyalgia Gastric reflux GERD (gastroesophageal reflux disease) High cholesterol History of edema History of IBS History of steroid therapy History of stress test HLD (hyperlipidemia) HTN (hypertension) IBS (irritable bowel syndrome) Injury of back Insomnia Kidney stones Kidney stones Major depressive disorder, recurrent, unspecified Migraine Opioid use disorder panic Personality disorder, unspecified Shortness of breath on exertion Smoker Ureteral calculus, right Walker as ambulation aid Wears dentures Home Medications medroxyprogesterone 150 mg IM .[id number] 03/09/15 [History Last Taken 05/31/18] gabapentin 300 mg PO BID 08/09/16 [History Last Taken 12/01/19] dicyclomine 20 mg PO 4X/DAY PRN 04/03/17 [History Last Taken 12/01/19] atorvastatin 20 mg PO QHS 10/13/17 [History Last Taken 11/30/19] nortriptyline [Pamelor] 100 mg PO QHS 10/13/17 [History Last Taken 11/30/19] omeprazole 40 mg PO DAILY #30 capsule. 10/15/17 [Rx Last Taken 12/01/19] hydroxyzine pamoate [Vistaril] 50 mg PO BID 07/27/18 [History Last Taken 11/15 11/04] trazodone 200 mg PO QHS 11/12/18 [History Last Taken 11/30/19] topiramate 25 mg PO DAILY 11/24/18 [History Last Taken 12/01/19] duloxetine [Cymbalta] 120 mg PO DAILY 06/02/19 [History Last Taken 12/01/19] ibuprofen 800 mg PO TID PRN PRN #20 tab 05/03/20 [Rx Last Taken Unknown] propranolol 20 mg PO BID 05/03/20 [History Last Taken 12/04/20 07:00] hydroxyzine HCl 100 mg PO QHS 11/27/20 [History Last Taken Unknown] lamotrigine 100 mg PO DAILY 11/27/20 [History Last Taken Unknown] potassium 99 mg PO DAILY 11/27/20 [History Last Taken Unknown] temazepam 15 mg PO QHS 11/27/20 [History Last Taken Unknown] tizanidine 4 mg PO TID PRN 11/27/20 [History Last Taken Unknown] phenazopyridine [Pyridium] 200 mg PO TID PRN PRN 7 Days #30 tab 12/04/20 [Rx Last Taken Unknown] Allergy/AdvReac Type Severity Reaction Status Date / Time aspirin AdvReac Nausea Verified 12/09/20 19:30 Family History Father Hypertension Heart disease Brother CAD (coronary artery disease) Myocardial infarction Surgical History History of esophagogastroduodenoscopy (EGD) S/P laparoscopic cholecystectomy Social History Smoking Status: Current every day smoker tobacco type: cigarettes ROS Constitutional Constitutional: Reports systems reviewed and no addt'l complaints, except as documented Eyes Eyes: Reports systems reviewed and no addt'l complaints, except as documented ENT HEENT: Reports systems reviewed and no addt'l complaints, except as documented Cardiovascular Cardiovascular: Reports abdominal pain; Denies arrhythmia on telemetry, chest pain with activity or dyspnea at rest Respiratory/Chest Respiratory/Chest: Denies chest congestion or dyspnea on exertion Gastrointestinal Gastrointestinal: Reports abdominal pain, cramping and nausea Genitourinary Genitourinary: Reports abdominal discomfort and urinary frequency Musculoskeletal Musculoskeletal: Reports back pain and difficulty walking Integumentary Integumentary: Denies changing lesions Neurologic Neurologic: Reports systems reviewed and no addt'l complaints, except as documented Psychiatric Psychiatric: Reports anxiety Vital Signs Vital Signs Vital Signs: 12/09/20 19:28 12/09/20 21:27 12/09/20 22:34 Temperature 97.9 F 98.0 F Temperature Source Temporal Temporal Pulse Rate 90 89 Respiratory Rate 18 16 16 Respiratory Effort Respiratory Depth Respiratory Pattern Blood Pressure 115/76 126/96 H Blood Pressure Mean 89 106 Blood Pressure Source Blood Pressure Position Blood Pressure Location Pulse Ox 98 98 Oxygen Delivery Method Room Air Room Air 12/09/20 23:15 12/10/20 00:50 12/10/20 05:15 Temperature 98.9 F 99.5 F H Temperature Source Oral Oral Pulse Rate 90 79 Respiratory Rate 18 16 Respiratory Effort Normal Non-Labored Respiratory Depth Normal Respiratory Pattern Normal Blood Pressure 129/64 H 112/74 Blood Pressure Mean 85 86 Blood Pressure Source Monitor Monitor Blood Pressure Position Semi-Fowlers Semi-Fowlers Blood Pressure Location Left Arm Left Arm Pulse Ox 97 94 Oxygen Delivery Method Room Air Room Air Room Air 12/10/20 07:38 12/10/20 13:08 12/10/20 16:35 Temperature 98.1 F 97.9 F 98.4 F Temperature Source Oral Oral Oral Pulse Rate 75 85 75 Respiratory Rate 18 16 18 Respiratory Effort Respiratory Depth Respiratory Pattern Blood Pressure 123/76 H 112/67 109/65 Blood Pressure Mean 91 82 79 Blood Pressure Source Monitor Monitor Monitor Blood Pressure Position Semi-Fowlers Sitting Sitting Blood Pressure Location Left Arm Left Arm Left Arm Pulse Ox 97 96 96 Oxygen Delivery Method Room Air Room Air Room Air Weight Weight: 86.3 kg Body Mass Index (BMI) 27.3 Physical Exam Const alert, oriented x3 and no apparent distress General Appearance: cooperative, comfortable and well kempt Orientation / Consciousness: awake and oriented to person HEENT normocephalic, head/scalp atraumatic, external nose normal and moist oral mucous membranes Eyes conjunctivae normal and no scleral icterus Neck supple General: trachea midline Lymph Lymphatic: no lymphedema noted Chest inspection of chest normal Chest: symmetrical chest wall rise Resp normal respiratory effort, normal air movement, no retractions and no use of accessory muscles GI soft to palpation, non-tender and non-distended Back/Spine General Back: CVA tenderness right Extremity normal to inspection Skin no rashes or lesions noted, no wounds, skin turgor normal, no jaundice and no petechiae Neuro oriented x3 and CN's II-XII intact bilaterally Psych mental status grossly normal, thought process normal, cooperative and affect normal Results Medical Records Data Medical Nutrition Assessment Dietitian: Nutrition Therapy Diagnosis Start: 12/10/20 13:57 Freq: Status: Active Protocol: Document 12/10/20 14:13 MICHAEL (Rec: 12/10/20 14:14 [facility] [id number]) Nutrition Malnutrition Evidence of Malnutrition Exists No Recommendation Dietitian Recommendations/Changes Will change diet to Cardiac - Heart Healthy d/t pmhx Lab / Micro Data Result Diagrams: 12/09/20 21:12 12/09/20 21:12 Labs: Laboratory Results - last 24 hr 12/09/20 19:40: Urine Color Yellow, Urine Clarity Sl. Cloudy, Urine pH 5.0, Ur Specific [place] 1.020, Urine Protein 30 H, Urine Glucose (UA) Normal, Urine Ketones 5 H, Urine Occult Blood 250 H, Urine Nitrite Positive H, Urine Bilirubin 3 H, Urine Urobilinogen 8 H, Ur Leukocyte Esterase 500 H, Urine RBC 50-100 SEEN, Urine WBC 50-100 SEEN, Ur Squamous Epith Cells 25-50 SEEN, Urine Bacteria 2+, Urine Mucus 0 SEEN 12/09/20 19:40: Urine Test Negative 12/09/20 21:12: WBC 9.7, RBC 4.43, Hgb 13.0, Hct 40.4, MCV 91.2, MCH 29.3, MCHC 32.2, RDW Std Deviation 50.7 H, RDW Coeff of Raquel 15.4 H, Plt Count 322, MPV 8.9, Immature Gran % (Auto) 0.800, Neut % (Auto) 70.4 H, Lymph % (Auto) 21.7, [place] % (Auto) 5.3, Eos % (Auto) 1.3, Baso % (Auto) 0.5, Absolute Neuts (auto) 6.8, Absolute Lymphs (auto) 2.09, Nucleated RBC % 0 12/09/20 21:12: Sodium 142, Potassium 3.4 L, Chloride 114 H, Carbon Dioxide 23.0, Anion Gap 5, BUN 18, Creatinine 0.88, Estim Creat Clear Calc 92.81, Est GFR (MDRD) Af Amer 92, Est GFR (MDRD) Non-Af 76, BUN/Creatinine Ratio 20.6 H, Glucose 93, Calcium 8.5 Micro: Microbiology 12/09/20 19:40 Urine, Clean Catch Urine Culture - Preliminary Streptococcus group B 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 Nonobstructive punctate left renal calculi. Electronically Signed: Cecilio Art DO at 22:06 EDT Tel [phone], Service support , Assessment & Plan Assessment/Plan (1) Ureteral calculus, right: PLAN: Continue antibiotic coverage and supportive care with pain management To surgery tomorrow for cystoscopy, ureteroscopy right ureteral stent possible stone removal Consent, n.p.o. after midnight Await urine culture results (2) Urinary tract infection:
[2020-12-10 21:57] VITALS: BP 125/82; PULSE 84; RESP 18; TEMP 36.9; O2SAT 96
[2020-12-10] MEDS: Nortriptyline 25 MG Capsule 100 MG PO (22:04)
[2020-12-10] MEDS: traZODone 100 MG Tablet 200 MG PO (22:04)
[2020-12-10] MEDS: Atorvastatin Calcium 20 MG Tablet PO (22:04)
[2020-12-10] MEDS: hydrOXYzine PAM 25 MG Capsule 100 MG PO (22:05)
[2020-12-10] MEDS: Temazepam 15 MG Capsule PO (22:09)
--- NOTE | 2020-12-10 23:31 | NURSING ---
Pt refused prn Zofran once drawn up into syringe. med disposed of in medroom.
[2020-12-11] VITALS (14 sets, daily range): BP systolic 100–140; BP diastolic 61–105; PULSE 56–88; RESP 16–18; TEMP 36.1–37.2; O2SAT 92–99; BMI 27.3
[2020-12-11] MEDS: HYDROmorphone 1 MG/ML Syringe IV ×9 (01:19→22:10)
[2020-12-11] MEDS: Dext 5%-0.45% NS 1,000 ML 125 ML IV ×3 (03:35→22:10)
[2020-12-11] MEDS: Ketorolac 30 MG/ML Syringe IV ×2 (04:36→16:24)
--- NOTE | 2020-12-11 06:00 | EKG12_ITS ---
Test Reason : AM EKG Blood Pressure : / mmHG Vent. Rate : 067 BPM Atrial Rate : 067 BPM P-R Int : 148 ms QRS Dur : 088 ms QT Int : 416 ms P-R-T Axes : 023 035 039 degrees QTc Int : 439 ms Normal sinus rhythm Normal ECG Confirmed by JESSICA LAYTON, DIPAK ([id number]), editor publications KYLAH DE LEON ([id number]) on 12/12/2020 1:18:22 PM Referred By: BARB Confirmed By:DIPAK LOPEZ MD
[2020-12-11] MEDS: Ondansetron 4 MG/2 ML Vial IV ×2 (06:44→16:24)
[2020-12-11] MEDS: Ciprofloxacin 400 MG/200 ML BAG 200 MG IV ×2 (09:56→22:10)
[2020-12-11] MEDS: Propranolol 10 MG Tablet 20 MG PO ×2 (09:59→22:12)
[2020-12-11] MEDS: 0.9% Saline Lock 10 ML Syringe IV ×2 (11:52→22:10)
--- NOTE | 2020-12-11 12:46 | OP.PCM_ITS ---
Problems Associated Problem List Diagnoses (1) Ureteral calculus, right: (2) Urinary tract infection: Report of Operation Date of Procedure: 12/11/20 Pre-Operative Diagnosis: Right ureteral calculus Post-Operative Diagnosis: Same Surgery/Procedure Performed:: Cystoscopy, right ureteroscopy, stone basket extraction, right ureteral stent change Surgeon: Krystin Aggarwal Type of Anesthesia: General Specimen's removed: Ureteral calculus Description of Procedure: The patient is a 40-year-old female who underwent b ilateral ureteroscopy with stone basket extraction and stent insertion 2 weeks ago. After removal of her ureteral stents, this weekend she developed uncontrolled right-sided flank pain and was found to have a distal ureteral calculus on the right side. She was admitted for pain control and antibiotic treatment for urinary tract infection. She has now been on the antibiotics for 2 days and is doing well. She now presents for removal of the right ureteral stone. Informed consent was obtained. The patient was taken the operating room and placed on the operating room table. Anesthesia monitored the head, neck, airway, IV access and vital signs throughout the case. Once anesthesia was apparently administered the patient was placed into dorsal lithotomy position was prepped and draped in usual sterile fashion. A cystourethroscopy revealed the right ureteral orifice to be edematous and erythematous. It was intubated with a 0.035 Glidewire and an attempt was made at semirigid ureteroscopy. Access to the stone was not able to be obtained secondary to ureteral narrowing. A second Glidewire was then passed and the flexible ureteroscope was passed over this Glidewire into the ureter. The stone was observed, grasped with a basket and removed. At this time the safety wire was used for placement of a 6 [place] 26 cm double-J stent which was well positioned with good curling in the renal pelvis as well as the urinary bladder. The patient's bladder was emptied and the case was terminated. She was taken to the recovery room in good condition. There were no complications during this procedure. Grafts/Implants Used: [id number] JJ stent Complications None Admit VTE Documentation VTE Present on Admission: Yes VTE Mechan Device Prophylaxis: SCD's VTE Pharm Prophylaxis ordered?: Yes
--- NOTE | 2020-12-11 12:51 | PCM.DC ---
Discharge Instructions Diet Discharge Diet: No restrictions Activity Discharge Activity: Return to Normal Activity Dressing / Incision Call your doctor if you observe: Fever of 101 or Higher, Inability to urinate, Inability to have a bowel movement and Uncontrolled pain Follow Up Care When: in office in 2 days for stent removal Test Results: Test results from this visit will be discussed in further detail at your follow-up appointment, if applicable. Discharge Plan Admission Admit Date/Time: 12/09/20 23:10 Attending Provider: Krystin Aggarwal Primary Care Provider: Tom Giraldo Discharge Orders/Prescriptions Prescriptions: New ciprofloxacin HCl [ciprofloxacin HCl] 500 MG tablet 500 mg PO BID 5 Days Qty: 10 RF: 0 oxycodone-acetaminophen [oxycodone-acetaminophen] 1 TABLET tablet 2 tab PO Q8H PRN PRN (Reason: Pain) 7 Days Qty: 20 RF: 0 Continued medroxyprogesterone 150 MG/ML syringe 150 mg IM .[id number] RF: 0 gabapentin 300 MG capsule 300 mg PO BID RF: 0 dicyclomine 10 MG capsule 20 mg PO 4X/DAY PRN (Reason: ibs) RF: 0 atorvastatin 40 MG tablet 20 mg PO QHS RF: 0 nortriptyline [Pamelor] 50 MG capsule 100 mg PO QHS RF: 0 omeprazole 40 MG capsule,delayed release(DR/EC) 40 mg PO DAILY Qty: 30 RF: 2 hydroxyzine pamoate [Vistaril] 50 MG capsule 50 mg PO BID RF: 0 trazodone 100 MG tablet 200 mg PO QHS RF: 0 topiramate 25 tablet 25 mg PO DAILY RF: 0 duloxetine [Cymbalta] 30 MG capsule 120 mg PO DAILY RF: 0 propranolol 20 MG tablet 20 mg PO BID RF: 0 ibuprofen 800 MG tablet 800 mg PO TID PRN PRN (Reason: Pain) Qty: 20 RF: 0 tizanidine 4 mg tablet 4 mg PO TID PRN (Reason: Pain) RF: 0 potassium 99 mg Tablet 99 mg PO DAILY RF: 0 temazepam 15 mg capsule 15 mg PO QHS RF: 0 hydroxyzine HCl 100 mg Tablet 100 mg PO QHS RF: 0 lamotrigine 100 mg tablet 100 mg PO DAILY RF: 0 phenazopyridine [Pyridium] 200 MG tablet 200 mg PO TID PRN PRN (Reason: Bladder Spasms) 7 Days Qty: 30 RF: 0 Referrals / Follow Up: Tom Giraldo MD [Primary Care Provider] - Disposition Disposition (needs filled in before D/C Order can be placed): Home, Self Care
--- NOTE | 2020-12-11 13:00 | CALC_PTH ---
PATIENT: KARLA LANCE LOC: [facility] U#:[id number] AGE/SX: 40/F ROOM: IL311 RE12/09/[address]: Dr. Krystin Aggarwal MD : 1980 BED: 1 DIS: 12/12/2020 SPEC #: [id number] RECD: 12/11/20 14:02 STATUS: KIRAN ARMENDARIZ #: [id number] NOLBERTO: 12/11/20 13:[address]: Krystin Aggarwal DEPT: SURGICAL PATHOLOGY RECD BY: Sirisha Garcia ENTERED: 12/12/20 08:36 SP TYPE: Calculi OTHR DR: Dr. Tom Giraldo MD Tissues: CALCULI Procedures: Surgery Specimen Level I HEADER OPERATION: Cysto, possible laser, stent PRE-OP DIAGNOSIS: Right ureteral calculus TISSUE SUBMITTED: Right ureteral calculus GROSS DIAGNOSIS A fragment of stone, clinically right ureteral calculus. BRISEYDA:heidi 12/13/2020 COMMENT The calculus is submitted in its entirety for chemical stone analysis. The results from this study will be reported separately. GROSS DESCRIPTION Received without fixative labeled with the patient's name and designated stone analysis calculi urinary. The specimen consists of a fragment of black stone measuring 0.3 x 0.2 x 0.1 cm. The entire specimen is submitted for stone analysis. / SJ:heidi 12/12/20 CPT: 16902
[2020-12-11] MEDS: Gabapentin 300 MG Capsule PO ×2 (15:24→22:12)
[2020-12-11] MEDS: Topiramate 25 MG Tablet PO (15:24)
[2020-12-11] MEDS: DULoxetine Hcl 60 MG Capsule 120 MG PO (15:24)
[2020-12-11] MEDS: lamoTRIgine 100 MG Tablet PO (15:24)
[2020-12-11] MEDS: Pantoprazole Sodium 40 MG Tablet PO (15:24)
--- NOTE | 2020-12-11 15:47 | CASEMGMT ---
TC from [facility] stating pt is current with their services. Made aware pt is in observation status and may dc today. Faxed referral info at this time.
[2020-12-11] MEDS: tiZANidine HCl 2 MG Tablet 4 MG PO (20:04)
[2020-12-11] MEDS: Phenazopyridine 95 MG Tablet 190 MG PO (20:05)
[2020-12-11] MEDS: Atorvastatin Calcium 20 MG Tablet PO (22:12)
[2020-12-11] MEDS: Temazepam 15 MG Capsule PO (22:12)
[2020-12-11] MEDS: Nortriptyline 25 MG Capsule 100 MG PO (22:12)
[2020-12-11] MEDS: traZODone 100 MG Tablet 200 MG PO (22:12)
[2020-12-11] MEDS: hydrOXYzine PAM 25 MG Capsule 100 MG PO (22:12)
[2020-12-12 04:25] VITALS: BP 132/76; PULSE 62; RESP 18; TEMP 37; O2SAT 95
[2020-12-12] MEDS: Ketorolac 30 MG/ML Syringe IV (04:29)
[2020-12-12] MEDS: Dext 5%-0.45% NS 1,000 ML 125 ML IV (04:29)
[2020-12-12] MEDS: tiZANidine HCl 2 MG Tablet 4 MG PO (04:29)
[2020-12-12] MEDS: Ondansetron 4 MG/2 ML Vial IV (05:23)
[2020-12-12 09:33] VITALS: BP 125/86; PULSE 68; RESP 18; TEMP 36.9; O2SAT 96
[2020-12-12] MEDS: Ciprofloxacin 400 MG/200 ML BAG 200 MG IV (09:38)
[2020-12-12] MEDS: Phenazopyridine 95 MG Tablet 190 MG PO (09:53)
[2020-12-12] MEDS: Gabapentin 300 MG Capsule PO (09:53)
[2020-12-12] MEDS: Topiramate 25 MG Tablet PO (09:53)
[2020-12-12] MEDS: DULoxetine Hcl 60 MG Capsule 120 MG PO (09:53)
[2020-12-12] MEDS: Pantoprazole Sodium 40 MG Tablet PO (09:53)
[2020-12-12] MEDS: Enoxaparin 40 MG/0.4 ML Syringe SC (09:54)
[2020-12-12] MEDS: Propranolol 10 MG Tablet 20 MG PO (09:54)
[2020-12-12] MEDS: Acetaminophen 325 MG Tablet 650 MG PO (10:58)
[2020-12-12] MEDS: oxyCODONE 5 MG Tablet 10 MG PO (10:58)
--- NOTE | 2020-12-12 11:44 | CASEMGMT ---
TC to [facility]. Left message that pt did not dc lastnight but plans to this date.
== END 2020-12-12 12:06 | disposition home or self-care (01) ==
LOC: ED 22:29 → MS3 12-10 02:23
PROVIDERS: Admitting Provider Urology; Emergency Provider Emergency Medicine; PCP Family Medicine; Visit Provider Urology
PROC: 0TJ98ZZ Inspection of Ureter, Via Natural or Artificial Opening Endoscopic (ICD-10-PCS; CPT 52352; principal; 2020-12-11 12:50)
DX: N20.1 Calculus of ureter (principal); N39.0 Urinary tract infection, site not specified; F41.9 Anxiety disorder, unspecified; M19.90 Unspecified osteoarthritis, unspecified site; M79.7 Fibromyalgia; K21.9 Gastro-esophageal reflux disease without esophagitis; I10 Essential (primary) hypertension; E78.5 Hyperlipidemia, unspecified; K58.9 Irritable bowel syndrome, unspecified; F60.9 Personality disorder, unspecified; G43.909 Migraine, unspecified, not intractable, without status migrainosus; F32.9 Major depressive disorder, single episode, unspecified; F17.210 Nicotine dependence, cigarettes, uncomplicated; G89.29 Other chronic pain; Z79.3 Long term (current) use of hormonal contraceptives; Z79.899 Other long term (current) drug therapy; Z86.718 Personal history of other venous thrombosis and embolism
CPT/HCPCS: 00918; 52320; 52332; 74176; 76000; 80048; 81001; 81025; 82360; 85025; 87077; 87086; 87088; 87186; 88300; 93005; 96361; 96365; 96366; 96367; 96372; 96375; 96376; 97802; 99218; 99284; 99406; J7050; J7120; A4216; G0378; J0696; J0744; J2405; J7799

== ENCOUNTER → 2020-12-14 11:28 | Outpatient (CLI) | payer MEDICAID, SELFPAY ==
[2020-12-11 11:47] VITALS: BMI 27.3
[2020-12-14 11:48] LABS: Hematocrit 35.8 % (37-47); Hemoglobin 11.5 g/dL (12.0-15.0); Mean Corp Hgb Conc 32.1 g/dL (32-36); Mean Corpuscular Hgb 29.6 pg (27.0-32.0); Mean Corpuscular Volume 92.3 fL (81-99); Mean Platelet Vol. 8.8 fl (6.2-12.0); Platelet Count 338 K/mm3 (150-450); RBC Distribution Width CV 15.9 % (11.6-14.6); Red Blood Count 3.88 M/mm3 (4.2-5.4); White Blood Count 7.9 K/mm3 (4.4-11.0)
[2020-12-14 11:49] LABS: Glucose, Dipstick Normal (Normal); Ketone-Dipstick Negative (Negative); Leukocyte Esterase-Dipstick 500 /ul (Negative); Nitrite-Dipstick Positive (Negative); Occult Blood-Urine 250 /ul (Negative); Protein-Dipstick 100 mg/dl (Negative); Urine Clarity Sl. Cloudy (Clear); Urine Urobilinogen 8 mg/dl (Normal)
[2020-12-14 11:50] LABS: Color, Urine SEE COMMENT BELOW (Yellow); Urine Bilirubin Dipstick 6 mg/dL (Negative)
[2020-12-14 12:07] LABS: Anion Gap 3 (5-15); BUN 17 mg/dL (7-18); BUN/Creat Ratio 19.2 RATIO (10-20); Calcium,Total 8.4 mg/dL (8.5-10.1); Chloride 113 mmol/L (98-107); Creatinine, Serum 0.88 mg/dL (0.55-1.02); EST Glomerular Filtration Rate 75 mL/min (>60); Est Glom Filt Rate - Afr Amer 91 mL/min (>60); Glucose 87 mg/dL (74-106); Potassium 3.7 mmol/L (3.5-5.1); Sodium Level 142 mmol/L (136-145)
== END ==
PROVIDERS: PCP Family Medicine; Referring Provider Urology; Visit Provider Urology
DX: N20.0 Calculus of kidney (principal); R22.43 Localized swelling, mass and lump, lower limb, bilateral; R10.9 Unspecified abdominal pain
CPT/HCPCS: 36415; 80048; 81002; 85027; 87086; 87088

== ENCOUNTER 2020-12-15 14:47 | Emergency (ER) | payer MEDICAID, SELFPAY ==
[2020-12-11 11:47] VITALS: BMI 27.3
[2020-12-15 14:48] VITALS: BP 119/74; PULSE 85; RESP 14; TEMP 36.3; O2SAT 98; BMI 30.9
--- NOTE | 2020-12-15 15:12 | EKG12_ITS ---
Test Reason : EDEMA Blood Pressure : / mmHG Vent. Rate : 068 BPM Atrial Rate : 068 BPM P-R Int : 148 ms QRS Dur : 090 ms QT Int : 402 ms P-R-T Axes : 041 036 031 degrees QTc Int : 427 ms Normal sinus rhythm Normal ECG Confirmed by JESSICA LAYTON, DIPAK ([id number]), news editor KLYAH DE LEON ([id number]) on 12/20/2020 1:03:57 PM Referred By: NANCY Confirmed By:DIPAK LOPEZ MD
--- NOTE | 2020-12-15 15:14 | EDS_ITS ---
HPI History of Present Illness Chief Complaint: Edema Informant: patient Narrative Narrative: Patient is a 40-year-old female who presents to the emergency department for bilateral edema of her lower extremities as well as a 20 pound weight gain over the past week or 2. She is never had this happen before. She currently does have a ureteral stent in for kidney stone. She denies any history of heart failure. No chest pain or shortness of breath. She has not been doing anything for this. Patient does state that both of her legs feel very painful and it does hurt to walk due to the swelling. She does have a distant history of DVT and is no longer on anticoagulation. She denies any cough, fever/chills. No abdominal pain. She is also complaining of rash to her lower abdomen but states she has been wearing depends with elastic strap as been rubbing. She states that she does have some urinary frequency/urgency but denies any hematuria or dysuria. She does have some abdominal discomfort but states that this is normal for her with the stent. [facility] Medical History (Updated 12/15/20 @ 17:[address] Reyes Meyers, ) Abdominal pain Anxiety Arthritis Back pain Blackout Chest pain Chronic pain Depression DVT (deep venous thrombosis) Fibromyalgia Gastric reflux GERD (gastroesophageal reflux disease) High cholesterol History of edema History of IBS History of steroid therapy History of stress test HLD (hyperlipidemia) HTN (hypertension) IBS (irritable bowel syndrome) Injury of back Insomnia Kidney stones Kidney stones Major depressive disorder, recurrent, unspecified Migraine Opioid use disorder panic Personality disorder, unspecified Shortness of breath on exertion Smoker Ureteral calculus, right Walker as ambulation aid Wears dentures Home Medications medroxyprogesterone 150 mg IM .[id number] 03/09/15 [History Last Taken 05/31/18] gabapentin 300 mg PO BID 08/09/16 [History Last Taken 12/01/19] dicyclomine 20 mg PO 4X/DAY PRN 04/03/17 [History Last Taken 12/01/19] atorvastatin 20 mg PO QHS 10/13/17 [History Last Taken 11/30/19] nortriptyline [Pamelor] 100 mg PO QHS 10/13/17 [History Last Taken 11/30/19] omeprazole 40 mg PO DAILY #30 capsule. 10/15/17 [Rx Last Taken 12/01/19] hydroxyzine pamoate [Vistaril] 50 mg PO BID 07/27/18 [History Last Taken 12/01/19] trazodone 200 mg PO QHS 11/12/18 [History Last Taken 11/30/19] topiramate 25 mg PO DAILY 11/24/18 [History Last Taken 12/01/19] duloxetine [Cymbalta] 120 mg PO DAILY 06/02/19 [History Last Taken 12/01/19] ibuprofen 800 mg PO TID PRN PRN #20 tab 05/03/20 [Rx Last Taken Unknown] propranolol 20 mg PO BID 05/03/20 [History Last Taken 12/04/20 07:00] hydroxyzine HCl 100 mg PO QHS 11/27/20 [History Last Taken Unknown] lamotrigine 100 mg PO DAILY 11/27/20 [History Last Taken Unknown] potassium 99 mg PO DAILY 11/27/20 [History Last Taken Unknown] temazepam 15 mg PO QHS 11/27/20 [History Last Taken Unknown] tizanidine 4 mg PO TID PRN 11/27/20 [History Last Taken Unknown] phenazopyridine [Pyridium] 200 mg PO TID PRN PRN 7 Days #30 tab 12/04/20 [Rx Last Taken Unknown] ciprofloxacin HCl 500 mg PO BID 5 Days #10 cap 12/12/20 [Rx Last Taken Unknown] oxycodone-acetaminophen 2 tab PO Q8H PRN PRN 7 Days #20 tab 12/12/20 [Rx Last Taken Unknown] furosemide [Lasix] 20 mg PO DAILY 5 Days #5 tab 12/15/20 [Rx Last Taken Unknown] Allergy/AdvReac Type Severity Reaction Status Date / Time aspirin AdvReac Nausea Verified 12/15/20 14:50 Family History Father Hypertension Heart disease Brother CAD (coronary artery disease) Myocardial infarction Surgical History History of esophagogastroduodenoscopy (EGD) S/P laparoscopic cholecystectomy Social History Smoking Status: Current every day smoker tobacco type: cigarettes ROS ROS ED Constitutional Constitutional ED: Denies chills or fever(s) Eyes Eyes: Denies change in vision ENT ENT ED: Denies rhinorrhea Cardiovascular Cardiovascular: Denies chest pain or palpitations Respiratory/Chest Respiratory/Chest: Denies cough, dyspnea or dyspnea on exertion Gastrointestinal Gastrointestinal: Reports abdominal pain; Denies diarrhea, nausea or vomiting Genitourinary Genitourinary ED: Denies dysuria or hematuria Musculoskeletal Musculoskeletal: Denies back pain or neck pain Integumentary Denies rash Neurologic Neurologic: Denies dizziness, headache(s) or weakness EXAM Physical Exam Const Vital Signs: 12/15/20 14:48 12/15/20 15:20 12/15/20 17:28 Temperature 97.3 F L 92 F L Temperature Source Temporal Pulse Rate 85 74 Respiratory Rate 14 16 Respiratory Effort Normal Non-Labored Respiratory Pattern Normal Blood Pressure 119/74 132/87 H Blood Pressure Mean 89 Pulse Ox 98 Oxygen Delivery Method Room Air Positive well nourished and well developed General Appearance ED: well developed and NAD HEENT Reports normocephalic, head/scalp atraumatic and moist mucous membranes Eyes PERRL and EOMs intact bilaterally Neck supple Chest Wall inspection of chest normal Resp normal respiratory effort and clear to auscultation bilaterally Auscultation: Negative for rales, rhonchi or wheezes Cardio regular rate, regular rhythm and no murmurs GI normal to inspection, nondistended, normoactive bowel sounds and non-tender Palpation: soft; Negative for guarding or rebound tenderness present Back/Spine no CVA tenderness Extremity Extremity Narrative: 2+ pitting edema bilateral lower extremities. The entire lower extremity is tender to touch. Neurovascular intact. 5 out of 5 muscle strength throughout. Neuro no sensory deficits noted Sensorium / Orientation: alert Psych mental status grossly normal Skin no rashes or lesions noted MDM MDM MDM Narrative Medical decision making narrative: Patient presents to the emergency department for edema and weight gain. She has gone up from 86 kg to 98 kg since her recent hospital admission. She has normal vital signs on arrival and satting 90% on room air. She does have pitting edema bilateral lower extremities. Will check basic lab work to evaluate kidney function as she does have a ureteral stent as well as BNP. Patient's lab work did not show an elevated creatinine. Her BNP is just mildly elevated. Her urine is positive for nitrites but there is no bacteria seen is only 10-25 white blood cells seen. She states that this is been a chronic issue for her. She is asymptomatic with this. We will hold off on treatment at this time. Given the fact she does have a history of DVT as well as a recent surgery she potentially could have a repeat DVT although unlikely given this is bilateral. Unfortunately do not have ultrasound at this time. I did make an order for her to come back for this to be done tomorrow. I did offer to give a prophylactic dose of anticoagulation but she is refusing. Otherwise I did give her a dose of Lasix. Recommend leg elevation as well as compressions. We will write a short prescription for this. She is to follow-up with her PCP. Return precautions are reviewed with her. She understands and is agreeable this plan. All questions were answered. Lab Data Labs: Laboratory Results - last 24 hr 12/15/20 12/15/20 12/15/20 15:25 15:25 15:25 WBC 7.4 RBC 4.13 L Hgb 12.2 Hct 39.1 MCV 94.7 MCH 29.5 MCHC 31.2 L RDW Std Deviation 54.5 H RDW Coeff of Raquel 15.9 H Plt Count 390 MPV 8.7 Immature Gran % (Auto) 0.900 Neut % (Auto) 69.2 Lymph % (Auto) 22.3 [place] % (Auto) 5.5 Eos % (Auto) 1.3 Baso % (Auto) 0.8 Absolute Neuts (auto) 5.1 Absolute Lymphs (auto) 1.66 Nucleated RBC % 0 Sodium 140 Potassium 3.6 Chloride 109 H Carbon Dioxide 26.0 Anion Gap 5 BUN 17 Creatinine 0.93 Estim Creat Clear Calc 87.82 Est GFR (MDRD) Af Amer 87 Est GFR (MDRD) Non-Af 72 BUN/Creatinine Ratio 18.4 Glucose 84 Calcium 8.8 Total Bilirubin 0.40 AST 27 ALT 93 H Alkaline Phosphatase 145 H Troponin I High Sens 3.9 B-Natriuretic Peptide 123.2 H Total Protein 7.3 Albumin 3.3 Globulin 4.0 Albumin/Globulin Ratio 0.8 L Urine Color Urine Clarity Urine pH Ur Specific Lewis Urine Protein Urine Glucose (UA) Urine Ketones Urine Occult Blood Urine Nitrite Urine Bilirubin Urine Urobilinogen Ur Leukocyte Esterase Urine RBC Urine WBC Ur Squamous Epith Cells Urine Bacteria Urine Mucus 12/15/20 15:55 WBC RBC Hgb Hct MCV MCH MCHC RDW Std Deviation RDW Coeff of Raquel Plt Count MPV Immature Gran % (Auto) Neut % (Auto) Lymph % (Auto) [place] % (Auto) Eos % (Auto) Baso % (Auto) Absolute Neuts (auto) Absolute Lymphs (auto) Nucleated RBC % Sodium Potassium Chloride Carbon Dioxide Anion Gap BUN Creatinine Estim Creat Clear Calc Est GFR (MDRD) Af Amer Est GFR (MDRD) Non-Af BUN/Creatinine Ratio Glucose Calcium Total Bilirubin AST ALT Alkaline Phosphatase Troponin I High Sens B-Natriuretic Peptide Total Protein Albumin Globulin Albumin/Globulin Ratio Urine Color SEE COMMENT BELOW Urine Clarity Sl. Cloudy Urine pH 5.0 Ur Specific Lewis 1.020 Urine Protein 100 H Urine Glucose (UA) Normal Urine Ketones Negative Urine Occult Blood 250 H Urine Nitrite Positive H Urine Bilirubin 6 H Urine Urobilinogen 8 H Ur Leukocyte Esterase 100 H Urine RBC 25-50 SEEN Urine WBC 10-25 SEEN Ur Squamous Epith Cells 5-10 SEEN Urine Bacteria 0 SEEN Urine Mucus 0 SEEN EKG Initial EKG: Attestation: I personally reviewed and interpreted this EKG as follows: (Rate of 68 bpm and normal sinus rhythm. Normal intervals. Normal axis. No significant ST elevations or depressions. No T wave abnormalities.) Discharge Plan Triage Chief Complaint: Edema Other Complaint: Lower Extremity Injury ED Provider: Reyes Meyers Dx/Rx/DC Orders Clinical Impression: Bilateral edema of lower extremity Instructions: ED Peripheral Edema, Bilateral Prescriptions: New furosemide [Lasix] 20 mg tablet 20 mg PO DAILY 5 Days Qty: 5 RF: 0 No Action medroxyprogesterone 150 MG/ML syringe 150 mg IM .[id number] RF: 0 gabapentin 300 MG capsule 300 mg PO BID RF: 0 dicyclomine 10 MG capsule 20 mg PO 4X/DAY PRN (Reason: ibs) RF: 0 atorvastatin 40 MG tablet 20 mg PO QHS RF: 0 nortriptyline [Pamelor] 50 MG capsule 100 mg PO QHS RF: 0 omeprazole 40 MG capsule,delayed release(DR/EC) 40 mg PO DAILY Qty: 30 RF: 2 hydroxyzine pamoate [Vistaril] 50 MG capsule 50 mg PO BID RF: 0 trazodone 100 MG tablet 200 mg PO QHS RF: 0 topiramate 25 tablet 25 mg PO DAILY RF: 0 duloxetine [Cymbalta] 30 MG capsule 120 mg PO DAILY RF: 0 propranolol 20 MG tablet 20 mg PO BID RF: 0 ibuprofen 800 MG tablet 800 mg PO TID PRN PRN (Reason: Pain) Qty: 20 RF: 0 tizanidine 4 mg tablet 4 mg PO TID PRN (Reason: Pain) RF: 0 potassium 99 mg Tablet 99 mg PO DAILY RF: 0 temazepam 15 mg capsule 15 mg PO QHS RF: 0 hydroxyzine HCl 100 mg Tablet 100 mg PO QHS RF: 0 lamotrigine 100 mg tablet 100 mg PO DAILY RF: 0 phenazopyridine [Pyridium] 200 MG tablet 200 mg PO TID PRN PRN (Reason: Bladder Spasms) 7 Days Qty: 30 RF: 0 ciprofloxacin HCl [ciprofloxacin HCl] 500 MG tablet 500 mg PO BID 5 Days Qty: 10 RF: 0 oxycodone-acetaminophen [oxycodone-acetaminophen] 1 TABLET tablet 2 tab PO Q8H PRN PRN (Reason: Pain) 7 Days Qty: 20 RF: 0 Primary Care Provider: Tom Giraldo Referrals: Tom Giraldo MD [Primary Care Provider] - 3-5 Days Activity Restrictions/Additional Instructions: DVT study has been ordered and came to be performed tomorrow between the hours of 9 and 1. Disposition Disposition: Home, Self Care Discharge Date/Time: 12/15/20 17:58
[2020-12-15 15:39] LABS: Absolute Lymphocyte Count 1.66 X10^3/uL (0.83-4.51); Absolute Neutrophil Count 5.1 X10^3/uL (2.0-7.7); Basophil# 0.06 X10^3/uL; Basophil% 0.8 % (0-1); Eosinophils% 1.3 % (0-5); Hematocrit 39.1 % (37-47); Hemoglobin 12.2 g/dL (12.0-15.0); Lymphocyte # 1.66 X10^3/ul (0.83-4.51); Lymphocyte % 22.3 % (19-41); Mean Corp Hgb Conc 31.2 g/dL (32-36); Mean Corpuscular Hgb 29.5 pg (27.0-32.0); Mean Corpuscular Volume 94.7 fL (81-99); Mean Platelet Vol. 8.7 fl (6.2-12.0); Monocyte# 0.41 X10^3/uL; Monocyte% 5.5 % (0-10); NRBC Flagged by Analyzer 0 % (0-5); Neutrophil # 5.13 X10^3/uL (2.7-7.7); Neutrophil % 69.2 % (47-70); Platelet Count 390 K/mm3 (150-450); RBC Distribution Width CV 15.9 % (11.6-14.6); RBC Distribution Width SD 54.5 fl (35.1-43.9); Red Blood Count 4.13 M/mm3 (4.2-5.4); White Blood Count 7.4 K/mm3 (4.4-11.0)
[2020-12-15 15:57] LABS: ALB/GLOB Ratio 0.8 RATIO (0.9-2.4); AST(SGOT) 27 U/L (15-37); Alanine Aminotransfer ALT/SGPT 93 U/L (13-56); Albumin, Serum 3.3 g/dL (3.2-5.0); Alkaline Phosphatase 145 U/L (45-117); Anion Gap 5 (5-15); BUN 17 mg/dL (7-18); BUN/Creat Ratio 18.4 RATIO (10-20); Calcium,Total 8.8 mg/dL (8.5-10.1); Chloride 109 mmol/L (98-107); Creatinine, Serum 0.93 mg/dL (0.55-1.02); EST Glomerular Filtration Rate 72 mL/min (>60); Est Glom Filt Rate - Afr Amer 87 mL/min (>60); Estimated Creatinine Clearance 87.82 ml/min; Glucose 84 mg/dL (74-106); Potassium 3.6 mmol/L (3.5-5.1); Protein, Total 7.3 g/dL (6.4-8.2); Sodium Level 140 mmol/L (136-145); Troponin-I HS 3.9 pg/mL (3.0-53.7)
[2020-12-15 16:00] LABS: Bacteria 0 SEEN /hpf (None Seen); Mucous, Urine 0 SEEN /hpf (<or=2+)
[2020-12-15 16:01] LABS: BNP,B-Type NATRIURETIC PEPTIDE 123.2 pg/mL (0-100)
[2020-12-15 16:01] LABS: Glucose, Dipstick Normal (Normal); Ketone-Dipstick Negative (Negative); Leukocyte Esterase-Dipstick 100 /ul (Negative); Nitrite-Dipstick Positive (Negative); Occult Blood-Urine 250 /ul (Negative); Protein-Dipstick 100 mg/dl (Negative); Urine Clarity Sl. Cloudy (Clear); Urine Urobilinogen 8 mg/dl (Normal)
[2020-12-15 16:02] LABS: Color, Urine SEE COMMENT BELOW (Yellow); Urine Bilirubin Dipstick 6 mg/dL (Negative)
[2020-12-15 16:08] LABS: Red Blood Cells-Urine 25-50 SEEN /hpf (0-5)
[2020-12-15 16:09] LABS: Squamous Epithelial Cells - UA 5-10 SEEN /hpf (5-10); White Blood Cells 10-25 SEEN /hpf (0-5)
[2020-12-15] MEDS: Furosemide 20 MG Tablet PO (17:26)
[2020-12-15 17:28] VITALS: BP 132/87; PULSE 74; RESP 16; TEMP 33.3
== END 2020-12-15 17:58 | disposition home or self-care (01) ==
PROVIDERS: Emergency Provider Emergency Medicine; PCP Family Medicine
DX: R60.0 Localized edema (principal); F41.9 Anxiety disorder, unspecified; M19.90 Unspecified osteoarthritis, unspecified site; F32.9 Major depressive disorder, single episode, unspecified; M79.7 Fibromyalgia; K21.9 Gastro-esophageal reflux disease without esophagitis; E78.5 Hyperlipidemia, unspecified; I10 Essential (primary) hypertension; F17.210 Nicotine dependence, cigarettes, uncomplicated; Z79.899 Other long term (current) drug therapy
CPT/HCPCS: 80053; 81001; 83880; 84484; 85025; 93005; 99284; A4216

== ENCOUNTER → 2020-12-16 10:53 | Outpatient (CLI) | payer MEDICAID, SELFPAY ==
[2020-12-15 14:48] VITALS: BMI 30.9
--- NOTE | 2020-12-16 11:00 | VDLE_ITS ---
RIGHT LEFT GSV is normal. GSV is normal. CFV is compressible, spontaneous, phasic, CFV is compressible, spontaneous, phasic, competent and demonstrates normal competent, and demonstrates normal augmentation. augmentation. FV is compressible, spontaneous, phasic, FV is compressible, spontaneous, phasic, competent and demonstrates normal competent and demonstrates normal augmentation. augmentation. POP V is compressible, spontaneous, phasic, POP V is compressible, spontaneous, phasic, competent and demonstrates normal competent and demonstrates normal augmentation. augmentation. T/P Trunk is compressible. T/P Trunk is compressible. PTV is compressible. PTV is compressible. RT PerV is compressible. LT PerV is compressible. Procedure This is a venous duplex using B-mode, color flow and spectral Doppler. Exam performed in department. The exam was diagnostic. VL/Venous Duplex US - Jeancarlos Extrem Interpretation Summary No evidence for acute deep venous thrombosis bilateral lower extremities with p atent and compressible bilateral great saphenous veins. Ordering Physician: Reyes Meyers Referring Physician: Tom Giraldo Performed By: Gage Dixon RVCary
== END ==
PROVIDERS: PCP Family Medicine; Referring Provider Emergency Medicine; Visit Provider Emergency Medicine
DX: M79.89 Other specified soft tissue disorders (principal)
CPT/HCPCS: 93970

== ENCOUNTER 2020-12-18 09:25 | Emergency (ER) | payer MEDICAID, SELFPAY ==
[2020-12-18 09:26] VITALS: BP 147/97; PULSE 70; RESP 20; TEMP 36.9; O2SAT 97; BMI 28.6
[2020-12-18 09:28] VITALS: BP 147/97; PULSE 70; RESP 20; TEMP 36.9; O2SAT 97
--- NOTE | 2020-12-18 09:46 | EDS_ITS ---
HPI HPI - GI History of Present Illness Chief Complaint: Abd Pain Detail of Chief Complaint: Right flank pain with a history of kidney stones. Informant: patient Abdominal Pain/Flank Pain Onset: Days Context: Gradual Onset Timing: Continuous Quality: Aching and Sharp Current Severity: Moderate Maximum Severity: Moderate Nausea/Vomiting/Emesis GI Symptom: Positive for Nausea and Vomiting Onset: Days Severity: Mild Diarrhea/Melena/Hematochezia GI Symptom: Negative for Diarrhea and Melena Associated Symptoms Associated Symptoms: Negative for Dysuria, Frequency and Hematuria Narrative Narrative: 40-year-old female known history of kidney stones. In November had bilateral ureteral stents placed by Dr. Carrera. Patient states that his stents were removed because they became infected. She now has a right-sided stent. States she has had pain for days. Is progressively gotten worse. She has associated nausea and vomiting. She denies any fever or chills. Prior similar symptoms: Yes Recent Illness/Hospitalization: Yes PFSH PFSH Medical History Abdominal pain Anxiety Arthritis Back pain Blackout Chest pain Chronic pain Depression DVT (deep venous thrombosis) Fibromyalgia Gastric reflux GERD (gastroesophageal reflux disease) High cholesterol History of edema History of IBS History of steroid therapy History of stress test HLD (hyperlipidemia) HTN (hypertension) IBS (irritable bowel syndrome) Injury of back Insomnia Kidney stones Kidney stones Major depressive disorder, recurrent, unspecified Migraine Opioid use disorder panic Personality disorder, unspecified Shortness of breath on exertion Smoker Ureteral calculus, right Walker as ambulation aid Wears dentures Home Medications medroxyprogesterone 150 mg IM .[id number] 03/09/15 [History Last Taken 05/31/18] gabapentin 300 mg PO BID 08/09/16 [History Last Taken 12/01/19] dicyclomine 20 mg PO 4X/DAY PRN 04/03/17 [History Last Taken 12/01/19] atorvastatin 20 mg PO QHS 10/13/17 [History Last Taken 11/30/19] nortriptyline [Pamelor] 100 mg PO QHS 10/13/17 [History Last Taken 11/30/19] omeprazole 40 mg PO DAILY #30 capsule. 10/15/17 [Rx Last Taken 12/01/19] hydroxyzine pamoate [Vistaril] 50 mg PO BID 07/27/18 [History Last Taken 12/01/19] trazodone 200 mg PO QHS 11/12/18 [History Last Taken 11/30/19] topiramate 25 mg PO DAILY 11/24/18 [History Last Taken 12/01/19] duloxetine [Cymbalta] 120 mg PO DAILY 06/02/19 [History Last Taken 12/01/19] ibuprofen 800 mg PO TID PRN PRN #20 tab 05/03/20 [Rx Last Taken Unknown] propranolol 20 mg PO BID 05/03/20 [History Last Taken 12/04/20 07:00] hydroxyzine HCl 100 mg PO QHS 11/27/20 [History Last Taken Unknown] lamotrigine 100 mg PO DAILY 11/27/20 [History Last Taken Unknown] potassium 99 mg PO DAILY 11/27/20 [History Last Taken Unknown] temazepam 15 mg PO QHS 11/27/20 [History Last Taken Unknown] tizanidine 4 mg PO TID PRN 11/27/20 [History Last Taken Unknown] phenazopyridine [Pyridium] 200 mg PO TID PRN PRN 7 Days #30 tab 12/04/20 [Rx Last Taken Unknown] ciprofloxacin HCl 500 mg PO BID 5 Days #10 cap 12/12/20 [Rx Last Taken Unknown] oxycodone-acetaminophen 2 tab PO Q8H PRN PRN 7 Days #20 tab 12/12/20 [Rx Last Taken Unknown] furosemide [Lasix] 20 mg PO DAILY 5 Days #5 tab 12/15/20 [Rx Last Taken Unknown] Allergy/AdvReac Type Severity Reaction Status Date / Time aspirin AdvReac Nausea Verified 12/15/20 14:50 Family History Father Hypertension Heart disease Brother CAD (coronary artery disease) Myocardial infarction Surgical History History of esophagogastroduodenoscopy (EGD) S/P laparoscopic cholecystectomy Social History Smoking Status: Current every day smoker tobacco type: cigarettes ROS ROS ED ROS Narrative Right flank pain with nausea and vomiting. Review of Systems ROS Unobtainable: Denies due to encephalopathy Constitutional Constitutional ED: Denies chills or fever(s) ENT ENT ED: Denies ear pain or sore throat Cardiovascular Cardiovascular: Denies chest pain Respiratory/Chest Respiratory/Chest: Denies cough or dyspnea Gastrointestinal Gastrointestinal: Reports abdominal pain, nausea and vomiting; Denies diarrhea or melena Genitourinary Genitourinary ED: Denies dysuria or hematuria Musculoskeletal Musculoskeletal: Denies arthralgias or myalgias Integumentary Denies rash Neurologic Neurologic: Denies headache(s) Psychiatric Psychiatric: Denies depression Endocrine Endocrinology: Denies polyuria Hematologic/Lymphatic Hematologic/Lymphatic: Denies easy bruising Allergic/Immunologic Allergic/Immunologic ED: Denies urticaria EXAM Physical Exam Narrative Exam Narrative: Middle-aged female no acute distress vital signs stable afebrile. Moist with membranes. Lungs clear. Heart regular rhythm no murmur rate about 70. Abdomen soft nontender normal bowel sounds no peritoneal signs. Moving all 4 extremities. She has pain in her right flank but no reproducible back tenderness. Neurologically she is awake and alert with no focal motor defi cits. Const Vital Signs: 12/18/20 09:26 12/18/20 09:28 Temperature 98.4 F 98.4 F Temperature Source Oral Oral Pulse Rate 70 70 Respiratory Rate 20 H 20 H Blood Pressure 147/97 H 147/97 H Blood Pressure Mean 113 113 Pulse Ox 97 97 Oxygen Delivery Method Room Air Room Air Positive well nourished and well developed; Negative for unkempt General Appearance ED: well developed; Negative for unkempt HEENT Reports moist mucous membranes normocephalic and atraumatic; Negative for trauma or tenderness Eyes PERRL and EOMs intact bilaterally Neck no lymphadenopathy, supple and no JVD General: Negative for tenderness Resp normal respiratory effort and clear to auscultation bilaterally Auscultation: Negative for rales, rhonchi or wheezes Cardio regular rate, regular rhythm, S1 normal heart sound, S2 normal heart sound and no murmurs GI non-tender, non-distended and no masses Auscultation: normoactive bowel sounds Palpation: soft; Negative for tender, guarding or rigid Back/Spine no CVA tenderness General Back: Negative for CVA tenderness Cervical Spine: Negative for cervical spine tenderness Extremity full ROM General Extremety ED: Negative for edema or tenderness General Extremity: Negative for edema Neuro CN's II-XII intact bilaterally and moves all extremities Sensorium / Orientation: alert, oriented to person, oriented to place, oriented to time and orientation impaired Psych mental status grossly normal Appearance: Negative for unkempt Mood & Affect: tearful Skin Lesions: no lesions Rashes: no rashes MDM MDM MDM Narrative Medical decision making narrative: 40-year-old female history of kidney stones. Currently has a right-sided ureteral stent. Complaining of pain. Also nausea vomiting. Will be treated with IV fluids, Zofran with Toradol and Dilaudid. CAT scan labs pending. Repeat exam patient is doing well at 11:40 AM. She states she is anxious. She has been requesting pain meds and anxiety meds. I went and discussed with her that her labs and tests look good. Her CAT scan was unremarkable. Then she could be discharged home to follow-up with her urologist. Patient is comfortable with the plan. Lab Data Attestation: I reviewed the patient's lab results. Lab results narrative: White count 7. Hemoglobin 13. No bands. Electrolytes unremarkable gap 6. Creatinine 0.9 and normal. Serum test negative. Urinalysis shows 5-10 whites.. No red blood cells. No bacteria. Positive nitrates. This is most likely contaminant because there is epithelial cells also. I did send a urine culture. Labs: Laboratory Results - last 24 hr 12/18/20 12/18/20 12/18/20 10:00 10:00 10:00 WBC 7.2 RBC 4.56 Hgb 13.4 Hct 42.5 MCV 93.2 MCH 29.4 MCHC 31.5 L RDW Std Deviation 53.8 H RDW Coeff of Raquel 16.0 H Plt Count 428 MPV 8.8 Immature Gran % (Auto) 0.700 Neut % (Auto) 69.3 Lymph % (Auto) 22.3 Crawford % (Auto) 5.5 Eos % (Auto) 1.1 Baso % (Auto) 1.1 H Absolute Neuts (auto) 5.0 Absolute Lymphs (auto) 1.61 Nucleated RBC % 0 Sodium 139 Potassium 3.6 Chloride 107 Carbon Dioxide 26.0 Anion Gap 6 BUN 11 Creatinine 0.95 Estim Creat Clear Calc 85.98 Est GFR (MDRD) Af Amer 84 Est GFR (MDRD) Non-Af 69 BUN/Creatinine Ratio 11.5 Glucose 106 Calcium 9.1 Serum , Qual NEGATIVE Urine Color Urine Clarity Urine pH Ur Specific [place] Urine Protein Urine Glucose (UA) Urine Ketones Urine Occult Blood Urine Nitrite Urine Bilirubin Urine Urobilinogen Ur Leukocyte Esterase Urine RBC Urine WBC Ur Squamous Epith Cells Urine Bacteria Urine Mucus 12/18/20 10:05 WBC RBC Hgb Hct MCV MCH MCHC RDW Std Deviation RDW Coeff of Raquel Plt Count MPV Immature Gran % (Auto) Neut % (Auto) Lymph % (Auto) Crawford % (Auto) Eos % (Auto) Baso % (Auto) Absolute Neuts (auto) Absolute Lymphs (auto) Nucleated RBC % Sodium Potassium Chloride Carbon Dioxide Anion Gap BUN Creatinine Estim Creat Clear Calc Est GFR (MDRD) Af Amer Est GFR (MDRD) Non-Af BUN/Creatinine Ratio Glucose Calcium Serum , Qual Urine Color Yellow Urine Clarity Sl. Cloudy Urine pH 7.0 Ur Specific [place] 1.005 Urine Protein 15 H Urine Glucose (UA) Normal Urine Ketones Negative Urine Occult Blood 50 H Urine Nitrite Positive H Urine Bilirubin Negative Urine Urobilinogen 1 H Ur Leukocyte Esterase 100 H Urine RBC 0 SEEN Urine WBC 5-10 SEEN Ur Squamous Epith Cells 5-10 SEEN Urine Bacteria 0 SEEN Urine Mucus 0 SEEN Radiography Diagnostic Testing: Radiology Impression Abdomen/Pelvis CT 12/18/20 10:25 IMPRESSION: A double-J right ureteral stent is noted in place in good position. A nonobstructive 1 mm calyceal calculus is noted in the mid pole calyces of the left kidney. Otherwise the CT scan of the abdomen and pelvis shows no acute pathology. Electronically Signed: Tien Solo DO at 11:06 EDT Tel , Service support , Rhythm Strip Rhythm Strip: Sinus Rhythm Rate: 66 Ectopy: None EKG Initial EKG: Attestation: I personally reviewed and interpreted this EKG as follows: Interpretation: Sinus Rhythm and No Acute Injury Pattern Comments: Normal sinus rhythm rate of 66 no acute signs of NE nor ischemia. Patient was anxious and was complaining of chest discomfort with it. Clinically I did not think it was cardiac in etiology but to be safe we did obtain an EKG. Prior EKG tracings: not available for review Discharge Plan Triage Chief Complaint: Abd Pain ED Provider: Berlin Fuentes Dx/Rx/DC Orders Clinical Impression: Acute flank pain Instructions: ED Abdominal Pain Unkn Cause Fem Prescriptions: No Action medroxyprogesterone 150 MG/ML syringe 150 mg IM .[id number] RF: 0 gabapentin 300 MG capsule 300 mg PO BID RF: 0 dicyclomine 10 MG capsule 20 mg PO 4X/DAY PRN (Reason: ibs) RF: 0 atorvastatin 40 MG tablet 20 mg PO QHS RF: 0 nortriptyline [Pamelor] 50 MG capsule 100 mg PO QHS RF: 0 omeprazole 40 MG capsule,delayed release(DR/EC) 40 mg PO DAILY Qty: 30 RF: 2 hydroxyzine pamoate [Vistaril] 50 MG capsule 50 mg PO BID RF: 0 trazodone 100 MG tablet 200 mg PO QHS RF: 0 topiramate 25 tablet 25 mg PO DAILY RF: 0 duloxetine [Cymbalta] 30 MG capsule 120 mg PO DAILY RF: 0 propranolol 20 MG tablet 20 mg PO BID RF: 0 ibuprofen 800 MG tablet 800 mg PO TID PRN PRN (Reason: Pain) Qty: 20 RF: 0 tizanidine 4 mg tablet 4 mg PO TID PRN (Reason: Pain) RF: 0 potassium 99 mg Tablet 99 mg PO DAILY RF: 0 temazepam 15 mg capsule 15 mg PO QHS RF: 0 hydroxyzine HCl 100 mg Tablet 100 mg PO QHS RF: 0 lamotrigine 100 mg tablet 100 mg PO DAILY RF: 0 phenazopyridine [Pyridium] 200 MG tablet 200 mg PO TID PRN PRN (Reason: Bladder Spasms) 7 Days Qty: 30 RF: 0 ciprofloxacin HCl [ciprofloxacin HCl] 500 MG tablet 500 mg PO BID 5 Days Qty: 10 RF: 0 oxycodone-acetaminophen [oxycodone-acetaminophen] 1 TABLET tablet 2 tab PO Q8H PRN PRN (Reason: Pain) 7 Days Qty: 20 RF: 0 furosemide [Lasix] 20 mg tablet 20 mg PO DAILY 5 Days Qty: 5 RF: 0 Primary Care Provider: Tom Giraldo Referrals: Krystin Aggarwal MD [STAFF PHYSICIAN] - As soon as possible Tom Giraldo MD [Primary Care Provider] - Activity Restrictions/Additional Instructions: Most likely your flank pain is from the stent. There is no signs of infection or acute stone. Tylenol and Motrin for pain. Call and follow-up with your urologist Dr. Krystin Aggarwal. Disposition Disposition: Home, Self Care
[2020-12-18] MEDS: HYDROmorphone 1 MG/ML Syringe IV (10:14)
[2020-12-18] MEDS: 0.9% Normal Saline 1,000 ML 1000 ML IV (10:14)
[2020-12-18] MEDS: Ondansetron 4 MG/2 ML Vial IV (10:14)
[2020-12-18] MEDS: Ketorolac 30 MG/ML Syringe IV (10:14)
[2020-12-18 10:16] LABS: Absolute Lymphocyte Count 1.61 X10^3/uL (0.83-4.51); Basophil# 0.08 X10^3/uL; Basophil% 1.1 % (0-1); Eosinophil# 0.08 X10^3/uL; Eosinophils% 1.1 % (0-5); Hematocrit 42.5 % (37-47); Hemoglobin 13.4 g/dL (12.0-15.0); Lymphocyte # 1.61 X10^3/ul (0.83-4.51); Lymphocyte % 22.3 % (19-41); Mean Corp Hgb Conc 31.5 g/dL (32-36); Mean Corpuscular Hgb 29.4 pg (27.0-32.0); Mean Corpuscular Volume 93.2 fL (81-99); Mean Platelet Vol. 8.8 fl (6.2-12.0); Monocyte% 5.5 % (0-10); NRBC Flagged by Analyzer 0 % (0-5); Neutrophil % 69.3 % (47-70); Platelet Count 428 K/mm3 (150-450); RBC Distribution Width SD 53.8 fl (35.1-43.9); Red Blood Count 4.56 M/mm3 (4.2-5.4); White Blood Count 7.2 K/mm3 (4.4-11.0)
[2020-12-18 10:16] LABS: Bacteria 0 SEEN /hpf (None Seen); Color, Urine Yellow (Yellow); Glucose, Dipstick Normal (Normal); Ketone-Dipstick Negative (Negative); Leukocyte Esterase-Dipstick 100 /ul (Negative); Mucous, Urine 0 SEEN /hpf (<or=2+); Nitrite-Dipstick Positive (Negative); Occult Blood-Urine 50 /ul (Negative); Protein-Dipstick 15 mg/dl (Negative); Red Blood Cells-Urine 0 SEEN /hpf (0-5); Specific Gravity, Urine 1.005 (1.002-1.030); Urine Bilirubin Dipstick Negative (Negative); Urine Clarity Sl. Cloudy (Clear); Urine Urobilinogen 1 mg/dl (Normal)
[2020-12-18 10:22] LABS: Squamous Epithelial Cells - UA 5-10 SEEN /hpf (5-10); White Blood Cells 5-10 SEEN /hpf (0-5)
[2020-12-18 10:25] LABS: Internal QC Validated? YES +Cl - CLEAR BKGD; Pregnancy, Serum, hCG Quali. NEGATIVE Negative
--- NOTE | 2020-12-18 10:25 | CT_ITS ---
EXAM DESCRIPTION: Unenhanced CT scan of the abdomen and pelvis CLINICAL HISTORY: 40 years Female, Pain COMPARISON: Previous CT scan of the abdomen and pelvis obtained on 12/09/2020 TECHNIQUE: A CT scan of the abdomen and pelvis was performed without IV contrast contrast administration. Oral contrast was not administered. Coronal and sagittal reconstruction images were reviewed. This exam was performed according to our departmental dose-optimization program, which includes automated exposure control, adjustment of the mA and/or kV according to patient size and/or use of iterative reconstruction technique. FINDINGS: The lung bases and the base of the heart are normal. The liver is normal.The spleen is normal.The adrenal glands are normal.The head, body, and tail of the pancreas are normal. The right and left kidneys were examined and there is a tiny 1 mm, nonobstructing calyceal calculus in the mid pole calyces of the left kidney. A double-J right ureteral stent is noted in place with the proximal aspect of the stent seen within the right renal pelvis and distal aspect of the stent seen coiled within the urinary bladder. There are some phleboliths seen along the distal aspect of the right ureter adjacent to the stent which were previously identified and are unchanged. No adjacent calculi are identified. No hydronephrosis is seen. The abdominal aortal is normal along its course and distribution. No paraortic lymphadenopathy is seen. No abdominal masses or lesions are seen. The CT scan of the pelvis was then reviewed. The common iliac vessels, external iliac vessels, and common femoral vessels are normal along their course and distribution No pelvis masses or lesions are seen. The appendix is normal. No pericecal inflammatory reaction is seen. Bone scanning windows of the lumbar spine and pelvis were reviewed in the coronal and sagittal planes and appear to be normal. CT/Abdomen/Pelvis without Cont IMPRESSION: A double-J right ureteral stent is noted in place in good position. A nonobstructive 1 mm calyceal calculus is noted in the mid pole calyces of the left kidney. Otherwise the CT scan of the abdomen and pelvis shows no acute pathology. Electronically Signed: Tien Solo DO at 11:06 EDT Tel , Service support ,
[2020-12-18 10:33] LABS: Anion Gap 6 (5-15); BUN 11 mg/dL (7-18); BUN/Creat Ratio 11.5 RATIO (10-20); Calcium,Total 9.1 mg/dL (8.5-10.1); Chloride 107 mmol/L (98-107); Creatinine, Serum 0.95 mg/dL (0.55-1.02); EST Glomerular Filtration Rate 69 mL/min (>60); Est Glom Filt Rate - Afr Amer 84 mL/min (>60); Estimated Creatinine Clearance 85.98 ml/min; Glucose 106 mg/dL (74-106); Potassium 3.6 mmol/L (3.5-5.1); Sodium Level 139 mmol/L (136-145)
[2020-12-18] MEDS: HYDROmorphone 0.5 MG/0.5 ML SYRINGE IV (10:43)
--- NOTE | 2020-12-18 10:58 | EKG12_ITS ---
Test Reason : CP Blood Pressure : / mmHG Vent. Rate : 066 BPM Atrial Rate : 066 BPM P-R Int : 142 ms QRS Dur : 084 ms QT Int : 406 ms P-R-T Axes : 033 038 045 degrees QTc Int : 425 ms Normal sinus rhythm Normal ECG Confirmed by JESSICA LAYTON, DIPAK ([id number]), video tape editor KYLAH DE LEON ([id number]) on 12/24/2020 9:28:00 AM Referred By: Reyes Meyers Confirmed By:DIPAK LOPEZ MD
[2020-12-18] MEDS: 0.9% Normal Saline 1,000 ML 999 ML IV (11:32)
[2020-12-18 12:51] VITALS: BP 151/82; RESP 18
== END 2020-12-18 12:51 | disposition home or self-care (01) ==
PROVIDERS: Emergency Provider Emergency Medicine; PCP Family Medicine
DX: R10.9 Unspecified abdominal pain (principal); F41.9 Anxiety disorder, unspecified; M19.90 Unspecified osteoarthritis, unspecified site; F32.9 Major depressive disorder, single episode, unspecified; M79.7 Fibromyalgia; K21.9 Gastro-esophageal reflux disease without esophagitis; E78.5 Hyperlipidemia, unspecified; I10 Essential (primary) hypertension; F17.210 Nicotine dependence, cigarettes, uncomplicated; Z87.442 Personal history of urinary calculi; Z79.899 Other long term (current) drug therapy
CPT/HCPCS: 74176; 80048; 81001; 84703; 85025; 87086; 93005; 96361; 96374; 96375; 99284; J7030; A4216; J2405

== ENCOUNTER → 2020-12-27 11:56 | Outpatient (CLI) | payer MEDICAID, SELFPAY ==
[2020-12-18 09:26] VITALS: BMI 28.6
[2020-12-27 15:15] LABS: AST(SGOT) 20 U/L (15-37); Alanine Aminotransfer ALT/SGPT 43 U/L (13-56); Albumin, Serum 3.7 g/dL (3.2-5.0); Alkaline Phosphatase 137 U/L (45-117); Anion Gap 9 (5-15); BUN 9 mg/dL (7-18); BUN/Creat Ratio 9.1 RATIO (10-20); Calcium,Total 9.1 mg/dL (8.5-10.1); Chloride 108 mmol/L (98-107); Cholesterol 188 mg/dL (200); Creatinine, Serum 0.99 mg/dL (0.55-1.02); EST Glomerular Filtration Rate 66 mL/min (>60); Est Glom Filt Rate - Afr Amer 80 mL/min (>60); Globulin 3.8 g/dL (2.2-4.2); Glucose 88 mg/dL (74-106); High Density Lipoprotein 38 mg/dL; Potassium 3.5 mmol/L (3.5-5.1); Protein, Total 7.5 g/dL (6.4-8.2); Sodium Level 141 mmol/L (136-145); Triglycerides 168 mg/dL; Very Low Density Lipoprotein 34 mg/dL (5-40)
== END ==
PROVIDERS: PCP Family Medicine; Visit Provider Family Medicine
DX: E78.5 Hyperlipidemia, unspecified (principal)
CPT/HCPCS: 36415; 80053; 80061

== ENCOUNTER → 2021-01-19 08:28 | Outpatient (CLI) | payer MEDICAID, SELFPAY | PROVIDERS: PCP Family Medicine; Referring Provider Urology; Visit Provider Urology | DX: R10.9 Unspecified abdominal pain (principal) | CPT/HCPCS: 87086; 87088; 87186 ==

== ENCOUNTER → 2021-01-22 19:05 | Outpatient (CLI) | payer MEDICAID, SELFPAY ==
--- NOTE | 2021-01-22 19:07 | US_ITS ---
STUDY: RENAL ULTRASOUND - COMPLETE REASON FOR EXAM: Female, 40 years old. FLANK PAIN-RT TECHNIQUE: Ultrasound evaluation of the kidneys was performed with real-time and static garvin-scale imaging. COMPARISON: None. FINDINGS: RIGHT KIDNEY: Normal location of the right kidney, which is normal in size. The right kidney measures 10.8 x 5.2 x 5.1 cm. There is a normal cortex of the right kidney. The renal cortex measures 1.0 cm. There is no right renal mass or cyst. There are a few calculi, the largest of which measures up to 7 mm. There is no right hydronephrosis. DISTAL RIGHT URETER: There is non-visualization of the distal right ureter. There is no demonstrated right ureterovesical junction calculus. There is a visualized right ureteral jet. LEFT KIDNEY: Normal location of the left kidney, which is normal in size. The left kidney measures 11.6 x 5.6 x 4.7 cm. There is a normal cortex of the left kidney. The renal cortex measures 1.3 cm. There is no left renal mass or cyst. There are a few calculi, the largest of which measures up to 7 mm. There is no left hydronephrosis. DISTAL LEFT URETER: There is non-visualization of the distal left ureter. There is no demonstrated left ureterovesical junction calculus. There is a visualized left ureteral jet. BLADDER: The distended urinary bladder has a volume of 91.7 ml. The empty urinary bladder has a volume of 3.9 ml. There is a normal wall thickness of the distended urinary bladder. There is no demonstrated mass within the urinary bladder. There are no demonstrated bladder calculi. US/Kidney and Bladder IMPRESSION: Bilateral nonobstructing renal calculi. No hydronephrosis. Electronically Signed: Tom Mcdonald MD at 22:04 EDT Tel , Service support ,
== END ==
PROVIDERS: PCP Family Medicine; Visit Provider Urology
DX: R10.9 Unspecified abdominal pain (principal)
CPT/HCPCS: 76770

== ENCOUNTER → 2021-01-31 08:06 | Outpatient (CLI) | payer MEDICAID, SELFPAY ==
--- NOTE | 2021-01-31 08:08 | CT_ITS ---
STUDY: CT ABDOMEN AND PELVIS WITHOUT CONTRAST REASON FOR EXAM: Female, 40 years old. Bilateral flank pain worse on the right side. History of kidney stones. RADIATION DOSAGE (If Supplied By Facility): CTDIvol = ( 15.83 ) mGy, DLP = ( 853.04 ) mGycm TECHNIQUE: Transaxial images were obtained from the dome of the diaphragm to the symphysis pubis without oral contrast, and without intravenous contrast. Sagittal and coronal images were reconstructed. Individualized dose optimization techniques were used for this CT. COMPARISON: Comparison is made with a prior examination dated 12/18/2020. FINDINGS: Stable mild increased markings in the lingular segment of the left upper lobe anteriorly suggestive of scarring. The visualized portions of the heart are within normal limits. Normal liver. The patient is status post cholecystectomy. Normal spleen. Small splenules are seen in the region of the splenic hilum. Normal pancreas. Normal bilateral adrenal glands. Normal right kidney. The previously seen right double-J stent catheter as been removed. Stable punctate calcification in the midpole calyx of the left kidney. Normal visualized stomach. Normal small intestine. Normal colon. The appendix is visualized and appears normal. Normal abdominal aorta. Normal inferior vena cava. Normal retroperitoneum. Normal urinary bladder. There is a small umbilical hernia containing fat. Stable small benign-appearing bilateral inguinal lymph nodes. Normal osseous structures. CT/Abdomen/Pelvis without Cont IMPRESSION: The previously seen right-sided double-J stent catheter has been removed. Punctate calcification in the left kidney. Stable mild scarring in the lingular segment of the left upper lobe Electronically Signed: Francisco Lopez MD at 8:42 EDT , Service support ,
== END ==
PROVIDERS: PCP Family Medicine; Referring Provider Urology; Visit Provider Urology
DX: N20.0 Calculus of kidney (principal); R10.9 Unspecified abdominal pain
CPT/HCPCS: 74176

== ENCOUNTER 2021-02-25 05:13 | Emergency (ER) | payer MEDICAID, SELFPAY ==
[2021-02-25 05:17] VITALS: BP 110/74; PULSE 82; RESP 20; TEMP 37; O2SAT 98; BMI 28.7
--- NOTE | 2021-02-25 05:35 | CT_ITS ---
STUDY: CT ABDOMEN AND PELVIS WITH CONTRAST REASON FOR EXAM: Female, 40 years old patient with right lower quadrant abdominal pain. RADIATION DOSAGE (If Supplied By Facility): CTDIvol = ( 15.84 ) mGy, DLP = ( 1023.77 ) mGycm TECHNIQUE: Transaxial images were obtained from the dome of the diaphragm to the symphysis pubis without oral contrast. 100 ml of IV Isovue - 300 was administered. Sagittal and coronal images were reconstructed. Individualized dose optimization techniques were used for this CT. COMPARISON: CT of the abdomen and pelvis dated 12/18/2020. FINDINGS: There is groundglass attenuation within both lower lobes that may represent dependent atelectasis. Early pneumonia cannot be excluded. There is a curvilinear opacity within the lingula that may be secondary pulmonary fibrosis. This appears similar to previous CT. The visualized portions of the heart are within normal limits. Normal liver. There is non-visualization of the gallbladder, which may be secondary to either contraction or a prior cholecystectomy. Normal spleen. Normal pancreas. Normal bilateral adrenal glands. Normal right kidney. Normal left kidney. Normal visualized stomach. There is no obvious dilated bowel, ascites or pneumoperitoneum. The small bowel has a grossly normal appearance. There is fluid-filled and gas-filled colon suggesting possible sequela of acute infectious or inflammatory colitis. The ascending colon is nondistended as is the portions of the transverse colon with thickening of bowel herrera. There is non-visualization of the appendix. 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 The superior mesenteric artery is widely patent. The abdominal aorta is patent as are the iliac arteries. Normal inferior vena cava. Normal retroperitoneum. Normal urinary bladder. Normal visualized uterus. Normal abdominal wall. Normal osseous structures. CT/Abdomen/Pelvis W IV Cont ONLY IMPRESSION: 1. Focal stenosis of the celiac axis. 2. Possible sequela of acute infectious or inflammatory colitis. 3. Bilateral basilar atelectasis versus early pneumonia. Electronically Signed: Brittany Espinsoa MD at 8:21 EDT , Service support ,
--- NOTE | 2021-02-25 05:36 | EDS_ITS ---
HPI <Dr. Ryland Johnson MD - Last Filed: 02/25/21 21:58> History of Present Illness Chief Complaint: Abd Pain Informant: patient Narrative Narrative: Patient presents with right lower quadrant abdominal pain. She states she started Thursday evening with abdominal pain that was more near the umbilicus. She really has not eaten since then because she has no appetite. She has nausea but no vomiting. No diarrhea. She is not really passing stools but she is not eating. She denies dysuria frequency urgency or vaginal discharge or bleeding. Last menstrual period is unknown because she is on Depo and has not had one for a while. She states the pain is now in the right lower quadrant and does radiate around to her side but not all the way to her back. She has chronic back pain for which she is treated but states that does not seem to be different today. She is also had kidney stones with stents and multiple stone removals over the summer. However that was more back and flank pain and sharper than this. This feels different. She has had subjective fevers but has not taken her temperature. She has history of the kidney stones and stent's as well as cholecystectomy. No appendectomy. [facility] <Dr. Ryland Johnson MD - Last Filed: 02/25/21 21:58> [facility] Medical History Abdominal pain Anxiety Arthritis Back pain Blackout Chest pain Chronic pain Depression DVT (deep venous thrombosis) Fibromyalgia Gastric reflux GERD (gastroesophageal reflux disease) High cholesterol History of edema History of IBS History of steroid therapy History of stress test HLD (hyperlipidemia) HTN (hypertension) IBS (irritable bowel syndrome) Injury of back Insomnia Kidney stones Kidney stones Major depressive disorder, recurrent, unspecified Migraine Opioid use disorder panic Personality disorder, unspecified Shortness of breath on exertion Smoker Ureteral calculus, right Walker as ambulation aid Wears dentures Home Medications medroxyprogesterone 150 mg IM .[id number] 03/09/15 [History Last Taken 05/31/18] gabapentin 300 mg PO BID 08/09/16 [History Last Taken 12/01/19] atorvastatin 20 mg PO QHS 10/13/17 [History Last Taken 11/30/19] nortriptyline [Pamelor] 100 mg PO QHS 10/13/17 [History Last Taken 11/30/19] omeprazole 40 mg PO DAILY #30 capsule. 10/15/17 [Rx Last Taken 12/01/19] trazodone 200 mg PO QHS 11/12/18 [History Last Taken 11/30/19] topiramate 25 mg PO DAILY 11/24/18 [History Last Taken 12/01/19] duloxetine [Cymbalta] 120 mg PO DAILY 06/02/19 [History Last Taken 12/01/19] propranolol 20 mg PO BID 05/03/20 [History Last Taken 12/04/20 07:00] hydroxyzine HCl 100 mg PO QHS 11/27/20 [History Last Taken Unknown] lamotrigine 100 mg PO DAILY 11/27/20 [History Last Taken Unknown] potassium 99 mg PO DAILY 11/27/20 [History Last Taken Unknown] temazepam 15 mg PO QHS 11/27/20 [History Last Taken Unknown] tizanidine 4 mg PO TID PRN 11/27/20 [History Last Taken Unknown] dicyclomine 20 mg PO TID #14 tab 02/25/21 [Rx Last Taken Unknown] hydrocodone-acetaminophen 1 tab PO TID 3 Days #9 tab 02/25/21 [Rx Last Taken Unknown] potassium citrate 10 meq PO TID 02/25/21 [History Last Taken Unknown] Allergy/AdvReac Type Severity Reaction Status Date / Time aspirin AdvReac Nausea Verified 02/25/21 05:17 Family History Father Hypertension Heart disease Brother CAD (coronary artery disease) Myocardial infarction Surgical History History of esophagogastroduodenoscopy (EGD) S/P laparoscopic cholecystectomy Social History Smoking Status: Current every day smoker tobacco type: cigarettes ROS <Dr. Ryland Johnson MD - Last Filed: 02/25/21 21:58> ROS ED Constitutional Constitutional ED: Reports chills and subjective ENT ENT ED: Denies rhinorrhea or sore throat Cardiovascular Cardiovascular: Denies chest pain or palpitations Respiratory/Chest Respiratory/Chest: Denies cough or dyspnea Gastrointestinal Gastrointestinal: Reports abdominal pain and nausea; Denies diarrhea or vomiting Genitourinary Genitourinary ED: Denies dysuria or hematuria Musculoskeletal Musculoskeletal: Reports back pain and other Details: Back pain is chronic and unchanged. ; Denies arthralgias, myalgias or neck pain Integumentary Denies abscess or rash Neurologic Neurologic: Denies paresthesias or weakness Endocrine Endocrinology: Denies polydipsia or polyuria Allergic/Immunologic Allergic/Immunologic ED: Denies urticaria EXAM <Dr. Ryland Johnson MD - Last Filed: 02/25/21 21:58> Physical Exam Const Vital Signs: 02/25/21 05:17 02/25/21 07:14 02/25/21 08:57 Temperature 98.6 F Temperature Source Oral Pulse Rate 82 79 75 Respiratory Rate 20 H 14 14 Blood Pressure 110/74 145/82 H 146/87 H Blood Pressure Mean 86 103 Pulse Ox 98 96 99 Oxygen Delivery Method Room Air Room Air Positive well nourished and well developed General Appearance ED: well developed and NAD HEENT Negative for trauma or tenderness Eyes General Eye ED: Negative for pale conjunctiva or scleral icterus Resp normal respiratory effort and clear to auscultation bilaterally Cardio regular rate, regular rhythm and no murmurs GI normal to inspection, nondistended, normoactive bowel sounds and non-distended GI Narrative: Bowel sounds are normal. Abdomen is not distended. She does have some mild tenderness diffusely in the right lower quadrant but no rebound or guarding. No notable CVA tenderness. Palpation: soft Back/Spine no CVA tenderness Extremity normal to inspection General Extremety ED: Negative for tenderness Neuro oriented x3 Sensorium / Orientation: alert Psych mental status grossly normal Skin no rashes or lesions noted <Dr. Tom Hernandez MD - Last Filed: 02/25/21 08:46> Physical Exam Const Vital Signs: 02/25/21 05:17 02/25/21 07:14 02/25/21 08:57 Temperature 98.6 F Temperature Source Oral Pulse Rate 82 79 75 Respiratory Rate 20 H 14 14 Blood Pressure 110/74 145/82 H 146/87 H Blood Pressure Mean 86 103 Pulse Ox 98 96 99 Oxygen Delivery Method Room Air Room Air MDM <Dr. Ryland Johnson MD - Last Filed: 02/25/21 21:58> [facility] Lab Data Labs: Laboratory Results - last 24 hr 02/25/21 02/25/21 02/25/21 05:40 05:40 05:40 WBC 9.5 RBC 4.94 Hgb 14.6 Hct 44.3 MCV 89.7 MCH 29.6 MCHC 33.0 RDW Std Deviation 46.0 H RDW Coeff of Raquel 14.1 Plt Count 340 MPV 9.5 Immature Gran % (Auto) 0.700 Neut % (Auto) 64.6 Lymph % (Auto) 26.4 [place] % (Auto) 6.7 Eos % (Auto) 0.8 Baso % (Auto) 0.8 Absolute Neuts (auto) 6.2 Absolute Lymphs (auto) 2.52 Nucleated RBC % 0 Sodium 140 Potassium 3.6 Chloride 109 H Carbon Dioxide 25.0 Anion Gap 6 BUN 12 Creatinine 1.05 H Estim Creat Clear Calc 77.79 Est GFR (MDRD) Af Amer 75 Est GFR (MDRD) Non-Af 62 BUN/Creatinine Ratio 11.4 Glucose 101 Calcium 9.2 Serum , Qual NEGATIVE Urine Color Urine Clarity Urine pH Ur Specific [place] Urine Protein Urine Glucose (UA) Urine Ketones Urine Occult Blood Urine Nitrite Urine Bilirubin Urine Urobilinogen Ur Leukocyte Esterase Urine RBC Urine WBC Ur Squamous Epith Cells Urine Bacteria Urine Mucus 02/25/21 06:11 WBC RBC Hgb Hct MCV MCH MCHC RDW Std Deviation RDW Coeff of Raquel Plt Count MPV Immature Gran % (Auto) Neut % (Auto) Lymph % (Auto) [place] % (Auto) Eos % (Auto) Baso % (Auto) Absolute Neuts (auto) Absolute Lymphs (auto) Nucleated RBC % Sodium Potassium Chloride Carbon Dioxide Anion Gap BUN Creatinine Estim Creat Clear Calc Est GFR (MDRD) Af Amer Est GFR (MDRD) Non-Af BUN/Creatinine Ratio Glucose Calcium Serum , Qual Urine Color Yellow Urine Clarity Sl. Cloudy Urine pH 6.0 Ur Specific [place] 1.020 Urine Protein 30 H Urine Glucose (UA) Normal Urine Ketones 5 H Urine Occult Blood 10 H Urine Nitrite Negative Urine Bilirubin 1 H Urine Urobilinogen 1 H Ur Leukocyte Esterase 100 H Urine RBC 0-5 SEEN Urine WBC 10-25 SEEN Ur Squamous Epith Cells 10-25 SEEN Urine Bacteria 2+ Urine Mucus 0 SEEN Radiography Diagnostic Testing: Clinical Impression(s) from Imaging Studies Abdomen/Pelvis CT 02/25/21 05:35 IMPRESSION: 1. Focal stenosis of the celiac axis. 2. Possible sequela of acute infectious or inflammatory colitis. 3. Bilateral basilar atelectasis versus early pneumonia. Electronically Signed: Brittany Espinosa MD at 8:21 EDT , Service support , <Dr. Tom Hernandez MD - Last Filed: 02/25/21 08:46> [facility] Narrative Medical decision making narrative: David- Patient was turned over to me. Her pain is somewhat improved, she does have evidence of possible colitis however she appears well and she has a normal white count, incidentally there is the possibility of an 80% stenosis of her celiac axis, I will refer to vascular surgery in [place], she is strongly encouraged to stop smoking. Otherwise she appears well she has no evidence of pain getting worse with food her pain has been the same for the past few days and does not seem to be a claudication type pain regardless if her pain gets worse she has fevers or chills she needs to return and she understands that. Lab Data Labs: Laboratory Results - last 24 hr 02/25/21 02/25/21 02/25/21 05:40 05:40 05:40 WBC 9.5 RBC 4.94 Hgb 14.6 Hct 44.3 MCV 89.7 MCH 29.6 MCHC 33.0 RDW Std Deviation 46.0 H RDW Coeff of Raquel 14.1 Plt Count 340 MPV 9.5 Immature Gran % (Auto) 0.700 Neut % (Auto) 64.6 Lymph % (Auto) 26.4 [place] % (Auto) 6.7 Eos % (Auto) 0.8 Baso % (Auto) 0.8 Absolute Neuts (auto) 6.2 Absolute Lymphs (auto) 2.52 Nucleated RBC % 0 Sodium 140 Potassium 3.6 Chloride 109 H Carbon Dioxide 25.0 Anion Gap 6 BUN 12 Creatinine 1.05 H Estim Creat Clear Calc 77.79 Est GFR (MDRD) Af Amer 75 Est GFR (MDRD) Non-Af 62 BUN/Creatinine Ratio 11.4 Glucose 101 Calcium 9.2 Serum , Qual NEGATIVE Urine Color Urine Clarity Urine pH Ur Specific [place] Urine Protein Urine Glucose (UA) Urine Ketones Urine Occult Blood Urine Nitrite Urine Bilirubin Urine Urobilinogen Ur Leukocyte Esterase Urine RBC Urine WBC Ur Squamous Epith Cells Urine Bacteria Urine Mucus 02/25/21 06:11 WBC RBC Hgb Hct MCV MCH MCHC RDW Std Deviation RDW Coeff of Raquel Plt Count MPV Immature Gran % (Auto) Neut % (Auto) Lymph % (Auto) [place] % (Auto) Eos % (Auto) Baso % (Auto) Absolute Neuts (auto) Absolute Lymphs (auto) Nucleated RBC % Sodium Potassium Chloride Carbon Dioxide Anion Gap BUN Creatinine Estim Creat Clear Calc Est GFR (MDRD) Af Amer Est GFR (MDRD) Non-Af BUN/Creatinine Ratio Glucose Calcium Serum , Qual Urine Color Yellow Urine Clarity Sl. Cloudy Urine pH 6.0 Ur Specific [place] 1.020 Urine Protein 30 H Urine Glucose (UA) Normal Urine Ketones 5 H Urine Occult Blood 10 H Urine Nitrite Negative Urine Bilirubin 1 H Urine Urobilinogen 1 H Ur Leukocyte Esterase 100 H Urine RBC 0-5 SEEN Urine WBC 10-25 SEEN Ur Squamous Epith Cells 10-25 SEEN Urine Bacteria 2+ Urine Mucus 0 SEEN Radiography Diagnostic Testing: Clinical Impression(s) from Imaging Studies Abdomen/Pelvis CT 02/25/21 05:35 IMPRESSION: 1. Focal stenosis of the celiac axis. 2. Possible sequela of acute infectious or inflammatory colitis. 3. Bilateral basilar atelectasis versus early pneumonia. Electronically Signed: Brittany Espinosa MD at 8:21 EDT , Service support , Discharge Plan Triage Chief Complaint: Abd Pain ED Provider: Ryland Johnson Dx/Rx/DC Orders Clinical Impression: Abdominal pain, Celiac artery stenosis Instructions: Abdominal Pain, Tips Cardiovascular Quit Smoking, PAD, Staying Smoke-Free, The Benefits of Living Smoke Free Prescriptions: New dicyclomine 20 mg tablet 20 mg PO TID Qty: 14 RF: 0 hydrocodone-acetaminophen 5-325 mg tablet 1 tab PO TID 3 Days Qty: 9 RF: 0 No Action medroxyprogesterone 150 MG/ML syringe 150 mg IM .[id number] RF: 0 gabapentin 300 MG capsule 300 mg PO BID RF: 0 atorvastatin 40 MG tablet 20 mg PO QHS RF: 0 nortriptyline [Pamelor] 50 MG capsule 100 mg PO QHS RF: 0 omeprazole 40 MG capsule,delayed release(DR/EC) 40 mg PO DAILY Qty: 30 RF: 2 trazodone 100 MG tablet 200 mg PO QHS RF: 0 topiramate 25 tablet 25 mg PO DAILY RF: 0 duloxetine [Cymbalta] 30 MG capsule 120 mg PO DAILY RF: 0 propranolol 20 MG tablet 20 mg PO BID RF: 0 tizanidine 4 mg tablet 4 mg PO TID PRN (Reason: Pain) RF: 0 potassium 99 mg Tablet 99 mg PO DAILY RF: 0 temazepam 15 mg capsule 15 mg PO QHS RF: 0 hydroxyzine HCl 100 mg Tablet 100 mg PO QHS RF: 0 lamotrigine 100 mg tablet 100 mg PO DAILY RF: 0 potassium citrate 10 mEq (1,080 mg) Tablet Extended Release 10 meq PO TID RF: 0 Primary Care Provider: Tom Giraldo Referrals: Tom Giraldo MD [Primary Care Provider] - Activity Restrictions/Additional Instructions: Call Dr. Dejesus at to make an appointment in [place] for the narrowing of your artery in your abdomen. Stop smoking or this narrowing if the artery will get worse and you will end up losing part of your gut. Disposition Disposition: Home, Self Care Discharge Date/Time: 02/25/21 08:58
[2021-02-25] MEDS: 0.9% Normal Saline 1,000 ML 1000 ML IV (05:43)
[2021-02-25] MEDS: Ondansetron 4 MG/2 ML Vial IV (05:43)
[2021-02-25] MEDS: Morphine 4 MG/ML Syringe IV ×2 (05:44→06:52)
[2021-02-25 06:06] LABS: Absolute Lymphocyte Count 2.52 X10^3/uL (0.83-4.51); Absolute Neutrophil Count 6.2 X10^3/uL (2.0-7.7); Basophil# 0.08 X10^3/uL; Basophil% 0.8 % (0-1); Eosinophil# 0.08 X10^3/uL; Eosinophils% 0.8 % (0-5); Hematocrit 44.3 % (37-47); Hemoglobin 14.6 g/dL (12.0-15.0); Lymphocyte # 2.52 X10^3/ul (0.83-4.51); Lymphocyte % 26.4 % (19-41); Mean Corpuscular Hgb 29.6 pg (27.0-32.0); Mean Corpuscular Volume 89.7 fL (81-99); Mean Platelet Vol. 9.5 fl (6.2-12.0); Monocyte# 0.64 X10^3/uL; Monocyte% 6.7 % (0-10); NRBC Flagged by Analyzer 0 % (0-5); Neutrophil # 6.15 X10^3/uL (2.7-7.7); Neutrophil % 64.6 % (47-70); Platelet Count 340 K/mm3 (150-450); RBC Distribution Width CV 14.1 % (11.6-14.6); Red Blood Count 4.94 M/mm3 (4.2-5.4); White Blood Count 9.5 K/mm3 (4.4-11.0)
[2021-02-25 06:16] LABS: Mucous, Urine 0 SEEN /hpf (<or=2+)
[2021-02-25 06:18] LABS: Color, Urine Yellow (Yellow); Glucose, Dipstick Normal (Normal); Ketone-Dipstick 5 mg/dl (Negative); Leukocyte Esterase-Dipstick 100 /ul (Negative); Nitrite-Dipstick Negative (Negative); Occult Blood-Urine 10 /ul (Negative); Protein-Dipstick 30 mg/dl (Negative); Urine Bilirubin Dipstick 1 mg/dL (Negative); Urine Clarity Sl. Cloudy (Clear); Urine Urobilinogen 1 mg/dl (Normal)
[2021-02-25 06:21] LABS: Internal QC Validated? YES +Cl - CLEAR BKGD; Pregnancy, Serum, hCG Quali. NEGATIVE Negative
[2021-02-25 06:25] LABS: Anion Gap 6 (5-15); BUN 12 mg/dL (7-18); BUN/Creat Ratio 11.4 RATIO (10-20); Calcium,Total 9.2 mg/dL (8.5-10.1); Chloride 109 mmol/L (98-107); Creatinine, Serum 1.05 mg/dL (0.55-1.02); EST Glomerular Filtration Rate 62 mL/min (>60); Est Glom Filt Rate - Afr Amer 75 mL/min (>60); Estimated Creatinine Clearance 77.79 ml/min; Glucose 101 mg/dL (74-106); Potassium 3.6 mmol/L (3.5-5.1); Sodium Level 140 mmol/L (136-145)
[2021-02-25 06:27] LABS: Bacteria 2+ /hpf (None Seen); Red Blood Cells-Urine 0-5 SEEN /hpf (0-5); Squamous Epithelial Cells - UA 10-25 SEEN /hpf (5-10); White Blood Cells 10-25 SEEN /hpf (0-5)
[2021-02-25 07:14] VITALS: BP 145/82; PULSE 79; RESP 14; O2SAT 96
[2021-02-25 08:57] VITALS: BP 146/87; PULSE 75; RESP 14; O2SAT 99
== END 2021-02-25 08:58 | disposition home or self-care (01) ==
PROVIDERS: Emergency Provider Emergency Medicine; PCP Family Medicine
DX: I77.1 Stricture of artery (principal); F41.9 Anxiety disorder, unspecified; M19.90 Unspecified osteoarthritis, unspecified site; F33.9 Major depressive disorder, recurrent, unspecified; K21.9 Gastro-esophageal reflux disease without esophagitis; E78.5 Hyperlipidemia, unspecified; I10 Essential (primary) hypertension; F17.210 Nicotine dependence, cigarettes, uncomplicated; Z79.899 Other long term (current) drug therapy
CPT/HCPCS: 74177; 80048; 81001; 84703; 85025; 96361; 96374; 96375; 96376; 99285; J7030; Q9967; A4216; J2405

== ENCOUNTER 2021-03-03 17:53 | Emergency (ER) | payer MEDICAID, SELFPAY ==
[2021-03-03 17:54] VITALS: BP 115/78; PULSE 89; RESP 16; TEMP 36.7; O2SAT 99; BMI 26.5
--- NOTE | 2021-03-03 18:08 | ED.RN ---
pt here for not eating or drinking for 12days hx of celiac stenosis and to have or in [place] sometime soon. pt with list of preop testing that dr wanted to have done first pt aware that test not done here in [place] and that need sched as outpt
--- NOTE | 2021-03-03 18:12 | CT_ITS ---
STUDY: CT ABDOMEN AND PELVIS WITH CONTRAST REASON FOR EXAM: Female, 40 years old. LUQ pain. Patient refused to drink oral contrast. Prior cholecystectomy and recent kidney surgery. Diagnosed with celiac artery stenosis on prior CT RADIATION DOSAGE (If Supplied By Facility): CTDIvol = ( 15.96 ) mGy, DLP = ( 1029.51 ) mGycm TECHNIQUE: CT images were obtained from the dome of the diaphragm to the symphysis pubis without oral contrast. IV 100mL Isovue-370 was administered. Sagittal and coronal images were reconstructed. Individualized dose optimization techniques were used for this CT. COMPARISON: 25 February 2021 FINDINGS: There is bilateral basal atelectasis.. The visualized portions of the heart are within normal limits. Normal liver. Gallbladder is removed. There is no biliary dilation. Normal spleen. Normal pancreas. Normal bilateral adrenal glands. Normal right kidney. Normal left kidney. Bowel is normal. Appendix is removed. Normal abdominal aorta. There is stenosis of the celiac artery, refer to report of CT angiography of the abdomen. Normal inferior vena cava. Normal retroperitoneum. Normal urinary bladder. Normal abdominal wall. Normal osseous structures. CT/Abdomen/Pelvis WITH Contrast IMPRESSION: 1. No acute abnormality. Electronically Signed: Giovanny Mercer MD at 19:59 EDT Tel , Service support ,
--- NOTE | 2021-03-03 18:14 | ED.VIS.GI ---
HPI HPI - GI History of Present Illness Chief Complaint: Abd Pain Informant: patient Abdominal Pain/Flank Pain Onset: Weeks (1) Context: Gradual Onset Timing: Continuous Quality: Sharp Location: Diffuse Worsened by: Food Relieved by: Nothing Nausea/Vomiting/Emesis GI Symptom: Positive for Nausea; Negative for Vomiting Diarrhea/Melena/Hematochezia GI Symptom: Positive for Diarrhea; Negative for Melena and Hematochezia Associated Symptoms Associated Symptoms: Negative for Dysuria, Frequency and Hematuria Narrative Narrative: Patient presents with abdominal pain that has been getting worse over the past week. Patient states she was seen here last week and diagnosed with stenosis of her celiac artery. Patient was referred to a vascular surgeon in [place]. Patient states she saw the surgeon in [place] and has some outpatient tests ordered to be done at [facility]. Patient states she is in the process of scheduling these. Patient states her pain became worse today. Patient states she called the surgeon on-call in [place] and was told to come to the emergency department. Patient states that her pain is sharp. Patient states it is worse over the left upper quadrant and lower abdomen. Patient states she has some diarrhea every time she tries to eat anything. Patient states that her pain occasionally radiates up into her chest. [facility] Medical History Abdominal pain Anxiety Arthritis Back pain Blackout Chest pain Chronic pain Depression DVT (deep venous thrombosis) Fibromyalgia Gastric reflux GERD (gastroesophageal reflux disease) High cholesterol History of edema History of IBS History of steroid therapy History of stress test HLD (hyperlipidemia) HTN (hypertension) IBS (irritable bowel syndrome) Injury of back Insomnia Kidney stones Kidney stones Major depressive disorder, recurrent, unspecified Migraine Opioid use disorder panic Personality disorder, unspecified Shortness of breath on exertion Smoker Ureteral calculus, right Walker as ambulation aid Wears dentures Home Medications medroxyprogesterone 150 mg IM .[id number] 03/09/15 [History Last Taken 05/31/18] gabapentin 300 mg PO BID 08/09/16 [History Last Taken 12/01/19] atorvastatin 20 mg PO QHS 10/13/17 [History Last Taken 11/30/19] nortriptyline [Pamelor] 100 mg PO QHS 10/13/17 [History Last Taken 11/30/19] omeprazole 40 mg PO DAILY #30 capsule. 10/15/17 [Rx Last Taken 12/01/19] trazodone 200 mg PO QHS 11/12/18 [History Last Taken 11/30/19] topiramate 25 mg PO DAILY 11/24/18 [History Last Taken 12/01/19] duloxetine [Cymbalta] 120 mg PO DAILY 06/02/19 [History Last Taken 12/01/19] propranolol 20 mg PO BID 05/03/20 [History Last Taken 12/04/20 07:00] hydroxyzine HCl 100 mg PO QHS 11/27/20 [History Last Taken Unknown] lamotrigine 100 mg PO DAILY 11/27/20 [History Last Taken Unknown] potassium 99 mg PO DAILY 11/27/20 [History Last Taken Unknown] temazepam 15 mg PO QHS 11/27/20 [History Last Taken Unknown] tizanidine 4 mg PO TID PRN 11/27/20 [History Last Taken Unknown] dicyclomine 20 mg PO TID #14 tab 02/25/21 [Rx Last Taken Unknown] hydrocodone-acetaminophen 1 tab PO TID 3 Days #9 tab 02/25/21 [Rx Last Taken Unknown] potassium citrate 10 meq PO TID 02/25/21 [History Last Taken Unknown] Allergy/AdvReac Type Severity Reaction Status Date / Time aspirin AdvReac Nausea Verified 03/03/21 17:56 Family History Father Hypertension Heart disease Brother CAD (coronary artery disease) Myocardial infarction Surgical History History of esophagogastroduodenoscopy (EGD) S/P laparoscopic cholecystectomy Social History Smoking Status: Current every day smoker tobacco type: cigarettes ROS ROS ED Constitutional Constitutional ED: Denies chills or fever(s) Eyes Eyes: Denies blurry vision or change in vision ENT ENT ED: Denies rhinorrhea or sore throat Cardiovascular Cardiovascular: Reports chest pain; Denies palpitations Respiratory/Chest Respiratory/Chest: Denies cough or dyspnea Gastrointestinal Gastrointestinal: Reports diarrhea and nausea; Denies vomiting Genitourinary Genitourinary ED: Denies dysuria or hematuria Musculoskeletal Musculoskeletal: Denies back pain or neck pain Integumentary Denies abscess or rash Neurologic Neurologic: Reports headache(s); Denies weakness Allergic/Immunologic Allergic/Immunologic ED: Denies mouth swelling or urticaria EXAM Physical Exam Const Vital Signs: 03/03/21 17:54 Temperature 98.1 F Temperature Source Temporal Pulse Rate 89 Respiratory Rate 16 Blood Pressure 115/78 Blood Pressure Mean 90 Pulse Ox 99 Oxygen Delivery Method Room Air Positive well nourished and well developed General Appearance ED: well developed HEENT Reports moist mucous membranes Neck supple and no JVD Resp normal respiratory effort and clear to auscultation bilaterally Cardio regular rate, regular rhythm and no murmurs GI normal to inspection, nondistended, normoactive bowel sounds Palpation: soft and tender LLQ, RLQ, LUQ and suprapubic; Negative for guarding or rebound tenderness present Extremity normal to inspection General Extremety ED: Negative for edema or tenderness General Extremity: Negative for edema Neuro oriented x3, CN's II-XII intact bilaterally and no sensory deficits noted Sensorium / Orientation: alert Motor Exam: strength 5/5 throughout Psych mental status grossly normal Skin no rashes or lesions noted MDM MDM MDM Narrative Medical decision making narrative: Patient was given IV fluids, morphine, and Zofran. CBC was within normal limits. Comprehensive metabolic profile was essentially within normal limits. Lipase was normal. Lactate was normal. CT scan of the abdomen pelvis was obtained. Patient refused to drink oral contrast so it was done with IV contrast only. There is no acute intra-abdominal process noted. There is still some stenosis of the celiac artery but this was unchanged compared to previous CT scan. Urinalysis did not show any evidence of urinary tract infection. Serum hCG was negative. Patient was advised of her findings. Patient was given a dose of Dilaudid here. Patient was instructed to follow-up with her primary care physician in 5 to 7 days. Patient understood and was agreeable with the plan. All questions were answered Lab Data Attestation: I reviewed the patient's lab results. Labs: Laboratory Results - last 24 hr 03/03/21 03/03/21 03/03/21 18:25 18:25 19:10 WBC 8.0 RBC 5.01 Hgb 14.6 Hct 45.6 MCV 91.0 MCH 29.1 MCHC 32.0 RDW Std Deviation 46.6 H RDW Coeff of Raquel 14.0 Plt Count 311 MPV 9.3 Immature Gran % (Auto) 0.600 Neut % (Auto) 67.0 Lymph % (Auto) 26.0 [place] % (Auto) 4.8 Eos % (Auto) 0.8 Baso % (Auto) 0.8 Absolute Neuts (auto) 5.3 Absolute Lymphs (auto) 2.07 Nucleated RBC % 0 Sodium 140 Potassium 3.6 Chloride 109 H Carbon Dioxide 24.0 Anion Gap 7 BUN 9 Creatinine 1.19 H Estim Creat Clear Calc 68.64 Est GFR (MDRD) Af Amer 65 Est GFR (MDRD) Non-Af 54 L BUN/Creatinine Ratio 7.6 L Glucose 94 Lactic Acid 0.6 Calcium 9.4 Total Bilirubin 0.40 AST 27 ALT 78 H Alkaline Phosphatase 192 H Total Protein 8.0 Albumin 3.8 Globulin 4.2 Albumin/Globulin Ratio 0.9 Lipase 88 Serum , Qual Urine Color Urine Clarity Urine pH Ur Specific [place] Urine Protein Urine Glucose (UA) Urine Ketones Urine Occult Blood Urine Nitrite Urine Bilirubin Urine Urobilinogen Ur Leukocyte Esterase Urine RBC Urine WBC Ur Squamous Epith Cells Urine Bacteria Urine Mucus 03/03/21 03/03/21 19:10 19:24 WBC RBC Hgb Hct MCV MCH MCHC RDW Std Deviation RDW Coeff of Raquel Plt Count MPV Immature Gran % (Auto) Neut % (Auto) Lymph % (Auto) [place] % (Auto) Eos % (Auto) Baso % (Auto) Absolute Neuts (auto) Absolute Lymphs (auto) Nucleated RBC % Sodium Potassium Chloride Carbon Dioxide Anion Gap BUN Creatinine Estim Creat Clear Calc Est GFR (MDRD) Af Amer Est GFR (MDRD) Non-Af BUN/Creatinine Ratio Glucose Lactic Acid Calcium Total Bilirubin AST ALT Alkaline Phosphatase Total Protein Albumin Globulin Albumin/Globulin Ratio Lipase Serum , Qual NEGATIVE Urine Color [place] Urine Clarity Clear Urine pH 5.0 Ur Specific [place] 1.025 Urine Protein 30 H Urine Glucose (UA) Normal Urine Ketones 15 H Urine Occult Blood Negative Urine Nitrite Negative Urine Bilirubin 1 H Urine Urobilinogen 1 H Ur Leukocyte Esterase 25 H Urine RBC 0 SEEN Urine WBC 0-5 SEEN Ur Squamous Epith Cells 0-5 SEEN Urine Bacteria 0 SEEN Urine Mucus 1+ Radiography Diagnostic Testing: Clinical Impression(s) from Imaging Studies Abdomen/Pelvis CT 03/03/21 18:12 IMPRESSION: 1. No acute abnormality. Electronically Signed: Giovanny Mercer MD at 19:59 EDT Tel , Service support , Discharge Plan Triage Chief Complaint: Abd Pain ED Provider: Sigifredo Ocasio Dx/Rx/DC Orders Clinical Impression: Abdominal pain, Celiac artery stenosis Instructions: ED Abdominal Pain Unkn Cause Fem Prescriptions: No Action medroxyprogesterone 150 MG/ML syringe 150 mg IM .[id number] RF: 0 gabapentin 300 MG capsule 300 mg PO BID RF: 0 atorvastatin 40 MG tablet 20 mg PO QHS RF: 0 nortriptyline [Pamelor] 50 MG capsule 100 mg PO QHS RF: 0 omeprazole 40 MG capsule,delayed release(DR/EC) 40 mg PO DAILY Qty: 30 RF: 2 trazodone 100 MG tablet 200 mg PO QHS RF: 0 topiramate 25 tablet 25 mg PO DAILY RF: 0 duloxetine [Cymbalta] 30 MG capsule 120 mg PO DAILY RF: 0 propranolol 20 MG tablet 20 mg PO BID RF: 0 tizanidine 4 mg tablet 4 mg PO TID PRN (Reason: Pain) RF: 0 potassium 99 mg Tablet 99 mg PO DAILY RF: 0 temazepam 15 mg capsule 15 mg PO QHS RF: 0 hydroxyzine HCl 100 mg Tablet 100 mg PO QHS RF: 0 lamotrigine 100 mg tablet 100 mg PO DAILY RF: 0 potassium citrate 10 mEq (1,080 mg) Tablet Extended Release 10 meq PO TID RF: 0 dicyclomine 20 mg tablet 20 mg PO TID Qty: 14 RF: 0 hydrocodone-acetaminophen 5-325 mg tablet 1 tab PO TID 3 Days Qty: 9 RF: 0 Primary Care Provider: Tom Giraldo Referrals: Tom Giraldo MD [Primary Care Provider] - 3-5 Days Disposition Disposition: Home, Self Care
[2021-03-03 18:30] LABS: Absolute Lymphocyte Count 2.07 X10^3/uL (0.83-4.51); Absolute Neutrophil Count 5.3 X10^3/uL (2.0-7.7); Basophil# 0.06 X10^3/uL; Basophil% 0.8 % (0-1); Eosinophil# 0.06 X10^3/uL; Eosinophils% 0.8 % (0-5); Hematocrit 45.6 % (37-47); Hemoglobin 14.6 g/dL (12.0-15.0); Lymphocyte # 2.07 X10^3/ul (0.83-4.51); Mean Corpuscular Hgb 29.1 pg (27.0-32.0); Mean Platelet Vol. 9.3 fl (6.2-12.0); Monocyte# 0.38 X10^3/uL; Monocyte% 4.8 % (0-10); NRBC Flagged by Analyzer 0 % (0-5); Neutrophil # 5.34 X10^3/uL (2.7-7.7); Platelet Count 311 K/mm3 (150-450); RBC Distribution Width SD 46.6 fl (35.1-43.9); Red Blood Count 5.01 M/mm3 (4.2-5.4)
[2021-03-03] MEDS: 0.9% Normal Saline 1,000 ML 1000 ML IV (18:33)
[2021-03-03] MEDS: Ondansetron 4 MG/2 ML Vial IV (18:34)
[2021-03-03] MEDS: Morphine 4 MG/ML Syringe IV (18:34)
[2021-03-03 18:47] LABS: ALB/GLOB Ratio 0.9 RATIO (0.9-2.4); AST(SGOT) 27 U/L (15-37); Alanine Aminotransfer ALT/SGPT 78 U/L (13-56); Albumin, Serum 3.8 g/dL (3.2-5.0); Alkaline Phosphatase 192 U/L (45-117); Anion Gap 7 (5-15); BUN 9 mg/dL (7-18); BUN/Creat Ratio 7.6 RATIO (10-20); Calcium,Total 9.4 mg/dL (8.5-10.1); Chloride 109 mmol/L (98-107); Creatinine, Serum 1.19 mg/dL (0.55-1.02); EST Glomerular Filtration Rate 54 mL/min (>60); Est Glom Filt Rate - Afr Amer 65 mL/min (>60); Estimated Creatinine Clearance 68.64 ml/min; Globulin 4.2 g/dL (2.2-4.2); Glucose 94 mg/dL (74-106); Lipase 88 U/L (73-393); Potassium 3.6 mmol/L (3.5-5.1); Sodium Level 140 mmol/L (136-145)
[2021-03-03 19:29] LABS: Bacteria 0 SEEN /hpf (None Seen); Red Blood Cells-Urine 0 SEEN /hpf (0-5)
[2021-03-03 19:33] LABS: Color, Urine Amber (Yellow); Glucose, Dipstick Normal (Normal); Ketone-Dipstick 15 mg/dl (Negative); Leukocyte Esterase-Dipstick 25 /ul (Negative); Nitrite-Dipstick Negative (Negative); Occult Blood-Urine Negative /ul (Negative); Protein-Dipstick 30 mg/dl (Negative); Specific Gravity, Urine 1.025 (1.002-1.030); Urine Bilirubin Dipstick 1 mg/dL (Negative); Urine Clarity Clear (Clear); Urine Urobilinogen 1 mg/dl (Normal)
[2021-03-03 19:38] LABS: Mucous, Urine 1+ /hpf (<or=2+); Squamous Epithelial Cells - UA 0-5 SEEN /hpf (5-10); White Blood Cells 0-5 SEEN /hpf (0-5)
[2021-03-03 19:44] LABS: Lactic Acid 0.6 mmol/L (0.4-1.9)
[2021-03-03 19:46] LABS: Internal QC Validated? YES +Cl - CLEAR BKGD; Pregnancy, Serum, hCG Quali. NEGATIVE Negative
[2021-03-03 20:22] VITALS: RESP 16
[2021-03-03 20:34] VITALS: PULSE 87; RESP 18; O2SAT 96
== END 2021-03-03 20:35 | disposition home or self-care (01) ==
PROVIDERS: Emergency Provider Emergency Medicine; PCP Family Medicine
DX: I77.1 Stricture of artery (principal); F41.9 Anxiety disorder, unspecified; M19.90 Unspecified osteoarthritis, unspecified site; K21.9 Gastro-esophageal reflux disease without esophagitis; E78.5 Hyperlipidemia, unspecified; I10 Essential (primary) hypertension; F33.9 Major depressive disorder, recurrent, unspecified; F17.210 Nicotine dependence, cigarettes, uncomplicated; Z79.899 Other long term (current) drug therapy
CPT/HCPCS: 74177; 80053; 81001; 83605; 83690; 84703; 85025; 96361; 96374; 96375; 99284; J7030; Q9967; A4216; J2405

== ENCOUNTER 2021-03-07 05:35 | Emergency (ER) | payer MEDICAID, SELFPAY ==
[2021-03-07 05:36] VITALS: BP 103/75; PULSE 81; RESP 16; TEMP 36.8; O2SAT 97; BMI 26.4
--- NOTE | 2021-03-07 06:57 | EDS_ITS ---
HPI History of Present Illness Chief Complaint: Abd Pain Informant: patient Onset/Context/Timing Onset: Weeks (2) Context: Gradual Onset Timing: Continuous Quality: Sharp Location: Diffuse Worsened by: Nothing Relieved by: Nothing Associated Symptoms Associated Symptoms: Weakness Narrative Narrative: Patient presents with abdominal pain that has been getting worse over the past 2 weeks. Patient has been seen here a couple times for this. 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 Patient states that since her last visit here she had a radiographic study which showed delayed gastric emptying. Patient states she is scheduled to see Dr. Diaz in [place] for further treatment of her celiac artery stenosis. Patient states that she called his office and they told her to come to the emergency department yesterday. She states that she has not had anything to eat or drink over the last 2 weeks. Patient states that her surgeon's office told her that if she got up to 16 days of not eating or drinking anything that she would . [facility] Medical History Abdominal pain Anxiety Arthritis Back pain Blackout Chest pain Chronic pain Depression DVT (deep venous thrombosis) Fibromyalgia Gastric reflux GERD (gastroesophageal reflux disease) High cholesterol History of edema History of IBS History of steroid therapy History of stress test HLD (hyperlipidemia) HTN (hypertension) IBS (irritable bowel syndrome) Injury of back Insomnia Kidney stones Kidney stones Major depressive disorder, recurrent, unspecified Migraine Opioid use disorder panic Personality disorder, unspecified Shortness of breath on exertion Smoker Ureteral calculus, right Walker as ambulation aid Wears dentures Home Medications medroxyprogesterone 150 mg IM .[id number] 03/09/15 [History Last Taken 05/31/18] gabapentin 300 mg PO BID 08/09/16 [History Last Taken 12/01/19] atorvastatin 20 mg PO QHS 10/13/17 [History Last Taken 11/30/19] nortriptyline [Pamelor] 100 mg PO QHS 10/13/17 [History Last Taken 11/30/19] omeprazole 40 mg PO DAILY #30 capsule. 10/15/17 [Rx Last Taken 12/01/19] trazodone 200 mg PO QHS 11/12/18 [History Last Taken 11/30/19] topiramate 25 mg PO DAILY 11/24/18 [History Last Taken 12/01/19] duloxetine [Cymbalta] 120 mg PO DAILY 06/02/19 [History Last Taken 12/01/19] propranolol 20 mg PO BID 05/03/20 [History Last Taken 12/04/20 07:00] hydroxyzine HCl 100 mg PO QHS 11/27/20 [History Last Taken Unknown] lamotrigine 100 mg PO DAILY 11/27/20 [History Last Taken Unknown] potassium 99 mg PO DAILY 11/27/20 [History Last Taken Unknown] temazepam 15 mg PO QHS 11/27/20 [History Last Taken Unknown] tizanidine 4 mg PO TID PRN 11/27/20 [History Last Taken Unknown] dicyclomine 20 mg PO TID #14 tab 02/25/21 [Rx Last Taken Unknown] hydrocodone-acetaminophen 1 tab PO TID 3 Days #9 tab 02/25/21 [Rx Last Taken Unknown] potassium citrate 10 meq PO TID 02/25/21 [History Last Taken Unknown] Allergy/AdvReac Type Severity Reaction Status Date / Time aspirin AdvReac Nausea Verified 03/07/21 05:36 Family History Father Hypertension Heart disease Brother CAD (coronary artery disease) Myocardial infarction Surgical History History of esophagogastroduodenoscopy (EGD) S/P laparoscopic cholecystectomy Social History Smoking Status: Current every day smoker tobacco type: cigarettes ROS ROS ED Constitutional Constitutional ED: Denies chills or fever(s) Eyes Eyes: Denies blurry vision or change in vision ENT ENT ED: Denies rhinorrhea or sore throat Cardiovascular Cardiovascular: Denies chest pain or palpitations Respiratory/Chest Respiratory/Chest: Denies cough or dyspnea Gastrointestinal Gastrointestinal: Reports abdominal pain, diarrhea, nausea and vomiting; Denies melena Genitourinary Genitourinary ED: Denies dysuria or hematuria Musculoskeletal Musculoskeletal: Denies back pain or neck pain Integumentary Denies abscess or rash Neurologic Neurologic: Denies headache(s) or weakness Allergic/Immunologic Allergic/Immunologic ED: Denies mouth swelling or urticaria EXAM Physical Exam Const Vital Signs: 03/07/21 05:36 03/07/21 08:05 Temperature 98.3 F Temperature Source Oral Pulse Rate 81 75 Respiratory Rate 16 18 Blood Pressure 103/75 120/71 Blood Pressure Mean 84 87 Pulse Ox 97 96 Oxygen Delivery Method Room Air Room Air Positive well nourished and well developed General Appearance ED: well developed HEENT Reports moist mucous membranes Neck supple and no JVD Resp normal respiratory effort and clear to auscultation bilaterally Cardio regular rate, regular rhythm and no murmurs GI Palpation: soft and tender epigastric, LLQ, RLQ, LUQ, RUQ, periumbilical and suprapubic; Negative for guarding or rebound tenderness present Extremity normal to inspection General Extremety ED: Negative for edema or tenderness General Extremity: Negative for edema Neuro oriented x3, CN's II-XII intact bilaterally and no sensory deficits noted Sensorium / Orientation: alert Motor Exam: strength 5/5 throughout Psych mental status grossly normal Skin no rashes or lesions noted MDM MDM MDM Narrative Medical decision making narrative: Patient was given IV fluids, morphine, and Zofran initially. Patient states that Zofran helped. Patient states the morphine helped briefly. CBC and comprehensive metabolic profile were obtained and were essentially within normal limits. Lactate was normal. Patient was advised of her findings. Patient was advised that she is not having any bowel ischemia. She is not having any signs of dehydration or malnutrition. Patient was instructed to follow-up with her surgeon. Patient was given a repeat dose of morphine prior to discharge. Patient was instructed to follow-up with her primary care physician as well. Patient understood and was agreeable with the plan. All questions were answered. Lab Data Labs: Laboratory Results - last 24 hr 03/07/21 03/07/21 03/07/21 07:05 07:05 07:05 WBC 7.3 RBC 4.99 Hgb 14.8 Hct 44.8 MCV 89.8 MCH 29.7 MCHC 33.0 RDW Std Deviation 45.7 H RDW Coeff of Raquel 13.9 Plt Count 313 MPV 9.7 Immature Gran % (Auto) 0.300 Neut % (Auto) 63.0 Lymph % (Auto) 27.8 [place] % (Auto) 7.2 Eos % (Auto) 0.6 Baso % (Auto) 1.1 H Absolute Neuts (auto) 4.6 Absolute Lymphs (auto) 2.02 Nucleated RBC % 0 Sodium 140 Potassium 3.5 Chloride 108 H Carbon Dioxide 26.0 Anion Gap 6 BUN 11 Creatinine 1.10 H Estim Creat Clear Calc 74.25 Est GFR (MDRD) Af Amer 71 Est GFR (MDRD) Non-Af 59 L BUN/Creatinine Ratio 10.0 Glucose 95 Lactic Acid 0.8 Calcium 9.2 Total Bilirubin 0.60 AST 20 ALT 47 Alkaline Phosphatase 171 H Total Protein 7.7 Albumin 3.6 Globulin 4.1 Albumin/Globulin Ratio 0.9 Lipase 166 Discharge Plan Triage Chief Complaint: Abd Pain Other Complaint: Nausea/Vomiting ED Provider: Sigifredo Ocasio Dx/Rx/DC Orders Clinical Impression: Abdominal pain, Stenosis of celiac artery Instructions: ED Abdominal Pain Unkn Cause Fem Prescriptions: No Action medroxyprogesterone 150 MG/ML syringe 150 mg IM .[id number] RF: 0 gabapentin 300 MG capsule 300 mg PO BID RF: 0 atorvastatin 40 MG tablet 20 mg PO QHS RF: 0 nortriptyline [Pamelor] 50 MG capsule 100 mg PO QHS RF: 0 omeprazole 40 MG capsule,delayed release(DR/EC) 40 mg PO DAILY Qty: 30 RF: 2 trazodone 100 MG tablet 200 mg PO QHS RF: 0 topiramate 25 tablet 25 mg PO DAILY RF: 0 duloxetine [Cymbalta] 30 MG capsule 120 mg PO DAILY RF: 0 propranolol 20 MG tablet 20 mg PO BID RF: 0 tizanidine 4 mg tablet 4 mg PO TID PRN (Reason: Pain) RF: 0 potassium 99 mg Tablet 99 mg PO DAILY RF: 0 temazepam 15 mg capsule 15 mg PO QHS RF: 0 hydroxyzine HCl 100 mg Tablet 100 mg PO QHS RF: 0 lamotrigine 100 mg tablet 100 mg PO DAILY RF: 0 potassium citrate 10 mEq (1,080 mg) Tablet Extended Release 10 meq PO TID RF: 0 dicyclomine 20 mg tablet 20 mg PO TID Qty: 14 RF: 0 hydrocodone-acetaminophen 5-325 mg tablet 1 tab PO TID 3 Days Qty: 9 RF: 0 Primary Care Provider: Tom Giraldo Referrals: Tom Giraldo MD [Primary Care Provider] - 3-5 Days Disposition Disposition: Home, Self Care
[2021-03-07] MEDS: 0.9% Normal Saline 1,000 ML 1000 ML IV (07:05)
[2021-03-07] MEDS: Ondansetron 4 MG/2 ML Vial IV (07:05)
[2021-03-07] MEDS: Morphine 4 MG/ML Syringe IV ×2 (07:05→08:38)
[2021-03-07 07:15] LABS: Absolute Lymphocyte Count 2.02 X10^3/uL (0.83-4.51); Absolute Neutrophil Count 4.6 X10^3/uL (2.0-7.7); Basophil# 0.08 X10^3/uL; Basophil% 1.1 % (0-1); Eosinophil# 0.04 X10^3/uL; Eosinophils% 0.6 % (0-5); Hematocrit 44.8 % (37-47); Hemoglobin 14.8 g/dL (12.0-15.0); Lymphocyte # 2.02 X10^3/ul (0.83-4.51); Lymphocyte % 27.8 % (19-41); Mean Corpuscular Hgb 29.7 pg (27.0-32.0); Mean Corpuscular Volume 89.8 fL (81-99); Mean Platelet Vol. 9.7 fl (6.2-12.0); Monocyte# 0.52 X10^3/uL; Monocyte% 7.2 % (0-10); NRBC Flagged by Analyzer 0 % (0-5); Neutrophil # 4.58 X10^3/uL (2.7-7.7); Platelet Count 313 K/mm3 (150-450); RBC Distribution Width CV 13.9 % (11.6-14.6); RBC Distribution Width SD 45.7 fl (35.1-43.9); Red Blood Count 4.99 M/mm3 (4.2-5.4); White Blood Count 7.3 K/mm3 (4.4-11.0)
[2021-03-07 07:33] LABS: ALB/GLOB Ratio 0.9 RATIO (0.9-2.4); AST(SGOT) 20 U/L (15-37); Alanine Aminotransfer ALT/SGPT 47 U/L (13-56); Albumin, Serum 3.6 g/dL (3.2-5.0); Alkaline Phosphatase 171 U/L (45-117); Anion Gap 6 (5-15); BUN 11 mg/dL (7-18); Calcium,Total 9.2 mg/dL (8.5-10.1); Chloride 108 mmol/L (98-107); EST Glomerular Filtration Rate 59 mL/min (>60); Est Glom Filt Rate - Afr Amer 71 mL/min (>60); Estimated Creatinine Clearance 74.25 ml/min; Globulin 4.1 g/dL (2.2-4.2); Glucose 95 mg/dL (74-106); Lipase 166 U/L (73-393); Potassium 3.5 mmol/L (3.5-5.1); Protein, Total 7.7 g/dL (6.4-8.2); Sodium Level 140 mmol/L (136-145)
[2021-03-07 07:48] LABS: Lactic Acid 0.8 mmol/L (0.4-1.9)
[2021-03-07 08:05] VITALS: BP 120/71; PULSE 75; RESP 18; O2SAT 96
[2021-03-07 08:26] VITALS: BP 100/58; PULSE 82; RESP 16; O2SAT 99
== END 2021-03-07 08:47 | disposition home or self-care (01) ==
PROVIDERS: Emergency Provider Emergency Medicine; PCP Family Medicine
DX: I77.1 Stricture of artery (principal); R10.84 Generalized abdominal pain; F41.9 Anxiety disorder, unspecified; M19.90 Unspecified osteoarthritis, unspecified site; F32.A Depression, unspecified; K21.9 Gastro-esophageal reflux disease without esophagitis; E78.5 Hyperlipidemia, unspecified; I10 Essential (primary) hypertension; F17.210 Nicotine dependence, cigarettes, uncomplicated; Z79.899 Other long term (current) drug therapy
CPT/HCPCS: 80053; 83605; 83690; 85025; 96361; 96374; 96375; 96376; 99285; J7030; A4216; J2405

== ENCOUNTER 2021-04-05 18:16 | Observation (INO) | payer MEDICAID, SELFPAY ==
[2021-04-05 18:17] VITALS: BP 156/55; PULSE 117; RESP 16; TEMP 35.4; O2SAT 98; BMI 25.8
--- NOTE | 2021-04-05 19:39 | EDS_ITS ---
HPI HPI - GI History of Present Illness Chief Complaint: Abd Pain Detail of Chief Complaint: Abdominal pain and vomiting and diarrhea Informant: patient Narrative Narrative: Patient with abdominal pain as well as vomiting and diarrhea for the last 2 weeks. Patient states that she had surgery to repair hiatal hernia about 3 weeks ago in [place]. Patient [facility] for [facility] due to problems with gastric emptying. Patient states that she has to pur?e her food to eat. She has been having frequent nausea and intermittent vomiting. Patient states she always has diarrhea and is incontinent of diarrheal stools. Patient's had prior appendectomy and prior cholecystectomy. She denies any fevers. She denies any Covid exposures. She has not had the Covid vaccine. Patient complains of some generalized weakness and just overall does not feel well. Patient thinks she is in a fibrofog. [facility] Medical History (Updated 04/05/21 @ 21:[address] Sandra Cordova, DO) Abdominal pain Anxiety Arthritis Back pain Blackout Chest pain Chronic pain Depression DVT (deep venous thrombosis) Fibromyalgia Gastric reflux GERD (gastroesophageal reflux disease) Hiatal hernia High cholesterol History of edema History of IBS History of steroid therapy History of stress test HLD (hyperlipidemia) HTN (hypertension) IBS (irritable bowel syndrome) Injury of back Insomnia Kidney stones Kidney stones Major depressive disorder, recurrent, unspecified Migraine Opioid use disorder panic Personality disorder, unspecified Shortness of breath on exertion Smoker Ureteral calculus, right Walker as ambulation aid Wears dentures Home Medications medroxyprogesterone 150 mg IM .[id number] 03/09/15 [History Last Taken 05/31/18] gabapentin 300 mg PO BID 08/09/16 [History Last Taken 12/01/19] atorvastatin 20 mg PO QHS 10/13/17 [History Last Taken 11/30/19] nortriptyline [Pamelor] 100 mg PO QHS 10/13/17 [History Last Taken 11/30/19] omeprazole 40 mg PO DAILY #30 capsule. 10/15/17 [Rx Last Taken 12/01/19] trazodone 200 mg PO QHS 11/12/18 [History Last Taken 11/30/19] topiramate 25 mg PO DAILY 11/24/18 [History Last Taken 12/01/19] duloxetine [Cymbalta] 120 mg PO DAILY 06/02/19 [History Last Taken 12/01/19] propranolol 20 mg PO BID 05/03/20 [History Last Taken 12/04/20 07:00] hydroxyzine HCl 100 mg PO QHS 11/27/20 [History Last Taken Unknown] lamotrigine 100 mg PO DAILY 11/27/20 [History Last Taken Unknown] potassium 99 mg PO DAILY 11/27/20 [History Last Taken Unknown] temazepam 15 mg PO QHS 11/27/20 [History Last Taken Unknown] tizanidine 4 mg PO TID PRN 11/27/20 [History Last Taken Unknown] dicyclomine 20 mg PO TID #14 tab 02/25/21 [Rx Last Taken Unknown] hydrocodone-acetaminophen 1 tab PO TID 3 Days #9 tab 02/25/21 [Rx Last Taken Unknown] potassium citrate 10 meq PO TID 02/25/21 [History Last Taken Unknown] Allergy/AdvReac Type Severity Reaction Status Date / Time aspirin AdvReac Nausea Verified 04/05/21 18:17 Family History Father Hypertension Heart disease Brother CAD (coronary artery disease) Myocardial infarction Surgical History History of esophagogastroduodenoscopy (EGD) S/P laparoscopic cholecystectomy Social History Smoking Status: Current every day smoker tobacco type: cigarettes ROS ROS ED Constitutional Constitutional ED: Reports systems reviewed and no addt'l complaints, except as documented; Denies body ache(s), change in weight or chills Eyes Eyes: Denies acute decrease in peripheral vision, change in vision, double vision or loss of vision ENT ENT ED: Reports none; Denies ear pain, lip swelling, loss taste/smell, neck pain, otalgia or sore throat Cardiovascular Cardiovascular: Reports none; Denies abdominal pain, chest pain with activity, leg edema, lightheadedness, palpitations, rapid heart rate or syncope Respiratory/Chest Respiratory/Chest: Reports none; Denies change in mental status, dry cough, dyspnea, hemoptysis, shortness of breath at rest or shortness of breath with exertion Gastrointestinal Gastrointestinal: Reports none, abdominal pain, diarrhea, nausea and vomiting; Denies change in stool character, hematemesis, hematochezia, melena or rectal bleeding Genitourinary Genitourinary ED: Reports none; Denies abdominal discomfort, anuria, dysuria, genital pain or polyuria Musculoskeletal Musculoskeletal: Reports none; Denies arthralgias, back pain, difficulty walking, extremity pain, muscle weakness or myalgias Integumentary Reports none; Denies abscess or rash Neurologic Neurologic: Reports none and weakness; Denies abnormal gait, confusion, focal weakness, frequent falls, headache(s), loss of vision, numbness, paresthesias, radicular pain or vertigo Psychiatric Psychiatric: Reports systems reviewed and no addt'l complaints, except as documented and none; Denies behavioral changes, confusion, difficulty concentrating, hallucinations, suicidal ideation, tactile hallucinations or visual hallucinations Endocrine Endocrinology: Denies none, cold intolerance, excessive sweating, fatigue or heat intolerance Hematologic/Lymphatic Hematologic/Lymphatic: Reports none; Denies anemia, easy bleeding or easy bruising Allergic/Immunologic Allergic/Immunologic ED: Denies as per HPI, none, lip swelling, mouth swelling, throat swelling, tongue swelling or hives EXAM Physical Exam Const Vital Signs: 04/05/21 18:17 Temperature 95.8 F L Temperature Source Temporal Pulse Rate 117 H Respiratory Rate 16 Blood Pressure 156/55 H Blood Pressure Mean 88 Pulse Ox 98 Oxygen Delivery Method Room Air Positive well nourished and well developed General Appearance ED: well developed and NAD HEENT Reports TM's clear and moist mucous membranes normocephalic and atraumatic; Negative for trauma or tenderness Tympanic Membrane ED: Yes TM's clear Eyes PERRL and EOMs intact bilaterally General Eye ED: Negative for pale conjunctiva or scleral icterus Neck no lymphadenopathy, supple and no JVD General: Negative for tenderness Chest Wall inspection of chest normal and palpation of chest normal Chest: Negative for tenderness Resp normal respiratory effort and clear to auscultation bilaterally Effort and Inspection: Negative for respiratory distress or pain with movement Auscultation: Negative for rhonchi, wheezes or diminished lung sounds Cardio regular rate, regular rhythm, S1 normal heart sound, S2 normal heart sound and no murmurs Peripheral Pulses: pulses 2+ throughout GI normal to inspection, nondistended, normoactive bowel sounds, soft to palpation, non-tender, non-distended and no masses GI Narrative: Patient has normal active bowel sounds on exam. She has some diffuse tenderness to palpation over the mid abdomen. No rebound, rigidity, or peritoneal signs. Back/Spine no CVA tenderness and no thoracic nor lumbar tenderness Extremity normal to inspection General Extremety ED: Negative for edema General Extremity: Negative for edema Neuro oriented x3, CN's II-XII intact bilaterally, no sensory deficits noted and gait normal Sensorium / Orientation: awake, alert, oriented to person, oriented to place and oriented to time Motor Exam: strength 5/5 throughout and strength abnormal Psych mental status grossly normal Skin no rashes or lesions noted and no wounds MDM MDM MDM Narrative Medical decision making narrative: IV line established on arrival. Patient was medicated morphine and Zofran. Patient noted to have significant hypokalemia and was ordered 40 mEq of potassium IV. Patient states that she has had issues with low potassium in the past and is supposed to take potassium at home but she has been throwing it up and will not stay down. Patient had a KUB that showed an ileus and I did not perform a CAT scan due to the fact that she has had multiple CT scans this year of her abdomen and pelvis and had concerned about radiation exposure. Given that she is got unremarkable white count and she has had prior cholecystectomy and appendectomy I felt a CT scan would be of low yield therefore a KUB was performed to rule out small bowel obstruction which did show an ileus. Patient continues to complain of abdominal pain she was given a another 4 mg of morphine IV. Her Covid test was negative. Lab Data Attestation: I reviewed the patient's lab results. Labs: Laboratory Results - last 24 hr 04/05/21 04/05/21 04/05/21 19:20 19:20 20:05 WBC 10.7 RBC 5.96 H Hgb 17.1 H Hct 51.0 H MCV 85.6 MCH 28.7 MCHC 33.5 RDW Std Deviation 44.1 H RDW Coeff of Raquel 14.3 Plt Count 443 MPV 10.1 Immature Gran % (Auto) 0.600 Neut % (Auto) 69.9 Lymph % (Auto) 20.7 [place] % (Auto) 7.4 Eos % (Auto) 0.6 Baso % (Auto) 0.8 Absolute Neuts (auto) 7.5 Absolute Lymphs (auto) 2.20 Nucleated RBC % 0 Sodium 141 Potassium 2.5 L* Chloride 109 H Carbon Dioxide 25.0 Anion Gap 7 BUN 14 Creatinine 1.18 H Estim Creat Clear Calc 66.89 Est GFR (MDRD) Af Amer 65 Est GFR (MDRD) Non-Af 54 L BUN/Creatinine Ratio 11.9 Glucose 122 H Calcium 10.3 H Total Bilirubin 0.50 AST 35 ALT 57 H Alkaline Phosphatase 233 H Total Protein 9.1 H Albumin 4.1 Globulin 5.0 H Albumin/Globulin Ratio 0.8 L Lipase 123 Urine Color Yellow Urine Clarity Sl. Cloudy Urine pH 6.0 Ur Specific [place] 1.015 Urine Protein 30 H Urine Glucose (UA) Normal Urine Ketones 5 H Urine Occult Blood 150 H Urine Nitrite Negative Urine Bilirubin Negative Urine Urobilinogen Normal Ur Leukocyte Esterase 500 H Urine RBC 25-50 SEEN Urine WBC 50-100 SEEN Ur Squamous Epith Cells 10-25 SEEN Urine Bacteria 1+ Urine Mucus 0 SEEN Radiography Diagnostic Testing: Clinical Impression(s) from Imaging Studies KUB X-Ray 04/05/21 20:22 IMPRESSION: Air-filled small and large bowel suggesting an ileus. Electronically Signed: Marky Ram MD at 20:45 EST , Service support , Discharge Plan Triage Chief Complaint: Abd Pain ED Provider: Sandra Cordova Dx/Rx/DC Orders Clinical Impression: Acute hypokalemia, Abdominal pain, UTI (urinary tract infection), Vomiting, Ileus Prescriptions: No Action medroxyprogesterone 150 MG/ML syringe 150 mg IM .[id number] RF: 0 gabapentin 300 MG capsule 300 mg PO BID RF: 0 atorvastatin 40 MG tablet 20 mg PO QHS RF: 0 nortriptyline [Pamelor] 50 MG capsule 100 mg PO QHS RF: 0 omeprazole 40 MG capsule,delayed release(DR/EC) 40 mg PO DAILY Qty: 30 RF: 2 trazodone 100 MG tablet 200 mg PO QHS RF: 0 topiramate 25 tablet 25 mg PO DAILY RF: 0 duloxetine [Cymbalta] 30 MG capsule 120 mg PO DAILY RF: 0 propranolol 20 MG tablet 20 mg PO BID RF: 0 tizanidine 4 mg tablet 4 mg PO TID PRN (Reason: Pain) RF: 0 potassium 99 mg Tablet 99 mg PO DAILY RF: 0 temazepam 15 mg capsule 15 mg PO QHS RF: 0 hydroxyzine HCl 100 mg Tablet 100 mg PO QHS RF: 0 lamotrigine 100 mg tablet 100 mg PO DAILY RF: 0 potassium citrate 10 mEq (1,080 mg) Tablet Extended Release 10 meq PO TID RF: 0 dicyclomine 20 mg tablet 20 mg PO TID Qty: 14 RF: 0 hydrocodone-acetaminophen 5-325 mg tablet 1 tab PO TID 3 Days Qty: 9 RF: 0 Primary Care Provider: Tom Giraldo Referrals: Tom Giraldo MD [Primary Care Provider] - Disposition Disposition: Acute Care [facility]
[2021-04-05 20:00] LABS: ALB/GLOB Ratio 0.8 RATIO (0.9-2.4); AST(SGOT) 35 U/L (15-37); Alanine Aminotransfer ALT/SGPT 57 U/L (13-56); Albumin, Serum 4.1 g/dL (3.2-5.0); Alkaline Phosphatase 233 U/L (45-117); Anion Gap 7 (5-15); BUN 14 mg/dL (7-18); BUN/Creat Ratio 11.9 RATIO (10-20); Calcium,Total 10.3 mg/dL (8.5-10.1); Chloride 109 mmol/L (98-107); Creatinine, Serum 1.18 mg/dL (0.55-1.02); EST Glomerular Filtration Rate 54 mL/min (>60); Est Glom Filt Rate - Afr Amer 65 mL/min (>60); Estimated Creatinine Clearance 66.89 ml/min; Glucose 122 mg/dL (74-106); Lipase 123 U/L (73-393); Potassium 2.5 mmol/L (3.5-5.1); Protein, Total 9.1 g/dL (6.4-8.2); Sodium Level 141 mmol/L (136-145)
[2021-04-05 20:05] LABS: Absolute Neutrophil Count 7.5 X10^3/uL (2.0-7.7); Basophil# 0.09 X10^3/uL; Basophil% 0.8 % (0-1); Eosinophil# 0.06 X10^3/uL; Eosinophils% 0.6 % (0-5); Hemoglobin 17.1 g/dL (12.0-15.0); Lymphocyte % 20.7 % (19-41); Mean Corp Hgb Conc 33.5 g/dL (32-36); Mean Corpuscular Hgb 28.7 pg (27.0-32.0); Mean Corpuscular Volume 85.6 fL (81-99); Mean Platelet Vol. 10.1 fl (6.2-12.0); Monocyte# 0.79 X10^3/uL; Monocyte% 7.4 % (0-10); NRBC Flagged by Analyzer 0 % (0-5); Neutrophil # 7.45 X10^3/uL (2.7-7.7); Neutrophil % 69.9 % (47-70); Platelet Count 443 K/mm3 (150-450); RBC Distribution Width CV 14.3 % (11.6-14.6); RBC Distribution Width SD 44.1 fl (35.1-43.9); Red Blood Count 5.96 M/mm3 (4.2-5.4); White Blood Count 10.7 K/mm3 (4.4-11.0)
[2021-04-05] MEDS: 0.9% Normal Saline 1,000 ML 125 ML IV (20:09)
[2021-04-05] MEDS: Ondansetron 4 MG/2 ML Vial IV (20:09)
[2021-04-05] MEDS: Morphine 4 MG/ML Syringe IV ×2 (20:09→21:52)
[2021-04-05 20:18] LABS: Mucous, Urine 0 SEEN /hpf (<or=2+)
[2021-04-05 20:20] LABS: Color, Urine Yellow (Yellow); Glucose, Dipstick Normal (Normal); Ketone-Dipstick 5 mg/dl (Negative); Leukocyte Esterase-Dipstick 500 /ul (Negative); Nitrite-Dipstick Negative (Negative); Occult Blood-Urine 150 /ul (Negative); Protein-Dipstick 30 mg/dl (Negative); Specific Gravity, Urine 1.015 (1.002-1.030); Urine Bilirubin Dipstick Negative (Negative); Urine Clarity Sl. Cloudy (Clear); Urine Urobilinogen Normal (Normal)
--- NOTE | 2021-04-05 20:22 | RAD_ITS ---
EXAM: XR ABDOMEN, 1 VIEW CLINICAL INDICATION: abdominal pain TECHNIQUE: Frontal supine view of the abdomen/pelvis. This report was created using [employer] report generation technology. COMPARISON: 12/05/2020 FINDINGS: LOWER THORAX: No acute pathology. GASTROINTESTINAL TRACT: Air-filled small and large bowel suggesting an ileus. ORGANS: Unremarkable as visualized. No organomegaly. No abnormal calcifications. BONES/JOINTS: No acute pathology. SOFT TISSUES: No acute pathology. RAD/Abdomen Single View (Portable) IMPRESSION: Air-filled small and large bowel suggesting an ileus. Electronically Signed: Marky Ram MD at 20:45 EST , Service support ,
[2021-04-05 20:26] LABS: Squamous Epithelial Cells - UA 10-25 SEEN /hpf (5-10); White Blood Cells 50-100 SEEN /hpf (0-5)
[2021-04-05 20:28] LABS: Red Blood Cells-Urine 25-50 SEEN /hpf (0-5)
[2021-04-05 20:29] LABS: Bacteria 1+ /hpf (None Seen)
[2021-04-05] MEDS: Potassium Chloride IVPB 10 MEQ 100 MEQ IV BOLUS ×2 (20:46→21:57)
--- NOTE | 2021-04-05 21:43 | PCM.HP.STD ---
HPI - General General Date of Admission: 04/05/21 Date of Service: 04/05/21 Chief Complaint: Abdominal pain, N/V/D. HPI Narrative The patient is a 40 y/o F w/ PMHx: HTN, HLD, IBS, Fibromylagia, Hx DVT, Chronic pain syndrome, Anxiety and Depression/Panic disorder/Unclear personality disorder, GERD, Tobacco use who presents to the [facility] ED on 04/05/21 with history of ongoing abdominal pain, nausea, emesis and diarrhea x 2 weeks with history of hiatal hernia repair 3 weeks prior in [place] with underlying history of issues with gastric emptying currently on a pur?ed food diet without any associated fevers or chills. She notes the pain can be sharp as well as dull aching and cramping. She is unable to discern if it is worse or better after her diarrheal episodes. She denies having been COVID vaccinated but denies exposure. Work-up in the ED included T 95.8, heart rate 117, BP 156/55, respiratory rate 16, 98% on room air, CBC with WBC 10.7, hemoglobin 17.1, platelet 443 without marked shift, CMP with potassium 2.5, chloride 109, BUN/creatinine 14/1.18, glucose 112, AST/ALT 35/57, alk phos 233, lipase 123, KUB with air-filled small and large bowel suggestive of an ileus, urinalysis with negative nitrite, 500 leukocyte esterase, urine RBCs 25-50, urine WBCs 50-100 with 1+ urine bacteria however squamous epithelial cells are 10-25 thus a poor sample, rapid Covid antigen negative. In the ED patient ministered potassium, Zofran, morphine, normal saline as well as Rocephin. [facility] Medical History (Updated 04/05/21 @ 23:[address] Karen Griffiths MD) Abdominal pain Anxiety Arthritis Back pain Blackout Chest pain Chronic pain Depression DVT (deep venous thrombosis) Fibromyalgia Gastric reflux GERD (gastroesophageal reflux disease) Hiatal hernia High cholesterol History of edema History of IBS History of steroid therapy History of stress test HLD (hyperlipidemia) HTN (hypertension) IBS (irritable bowel syndrome) Injury of back Insomnia Kidney stones Kidney stones Major depressive disorder, recurrent, unspecified Migraine Opioid use disorder panic Personality disorder, unspecified Shortness of breath on exertion Smoker Ureteral calculus, right Walker as ambulation aid Wears dentures Home Medications medroxyprogesterone 150 mg IM .[id number] 03/09/15 [History Last Taken 05/31/18] gabapentin 300 mg PO BID 08/09/16 [History Last Taken 12/01/19] atorvastatin 20 mg PO QHS 10/13/17 [History Last Taken 11/30/19] nortriptyline [Pamelor] 100 mg PO QHS 10/13/17 [History Last Taken 11/30/19] omeprazole 40 mg PO DAILY #30 capsule.dr 10/15/17 [Rx Last Taken 12/01/19] trazodone 200 mg PO QHS 11/12/18 [History Last Taken 11/30/19] topiramate 25 mg PO DAILY 11/24/18 [History Last Taken 12/01/19] duloxetine [Cymbalta] 120 mg PO DAILY 06/02/19 [History Last Taken 12/01/19] propranolol 20 mg PO BID 05/03/20 [History Last Taken 12/04/20 07:00] hydroxyzine HCl 100 mg PO QHS 11/27/20 [History Last Taken Unknown] lamotrigine 100 mg PO DAILY 11/27/20 [History Last Taken Unknown] potassium 99 mg PO DAILY 11/27/20 [History Last Taken Unknown] temazepam 15 mg PO QHS 11/27/20 [History Last Taken Unknown] tizanidine 4 mg PO TID PRN 11/27/20 [History Last Taken Unknown] dicyclomine 20 mg PO TID #14 tab 02/25/21 [Rx Last Taken Unknown] hydrocodone-acetaminophen 1 tab PO TID 3 Days #9 tab 02/25/21 [Rx Last Taken Unknown] potassium citrate 10 meq PO TID 02/25/21 [History Last Taken Unknown] Allergy/AdvReac Type Severity Reaction Status Date / Time aspirin AdvReac Nausea Verified 04/05/21 18:17 Family History (Updated 04/05/21 @ 23:[address] Karen Griffiths MD) Father Hypertension Heart disease Brother CAD (coronary artery disease) Myocardial infarction Mother Heart disease Myocardial infarction Surgical History (Updated 04/05/21 @ 23:[address] Karen Griffiths MD) History of esophagogastroduodenoscopy (EGD) History of repair of hiatal hernia S/P laparoscopic cholecystectomy Social History (Updated 04/05/21 @ 23:[address] Karen Griffiths MD) household members: children Smoking Status: Current every day smoker tobacco type: cigarettes Smoking packs per day: 1 Smoking cigarettes per day: 20.0 alcohol intake: never substance use type: does not use ROS ROS Narrative Admission Review of Systems: CONSTITUTIONAL: No weight loss, fever, chills, + weakness or fatigue. HEENT: Eyes: No visual loss, blurred vision, double vision or yellow sclerae. Ears, Nose, Throat: No hearing loss, sneezing, congestion, runny nose or sore throat. SKIN: No rash or itching, lesions, wounds. CARDIOVASCULAR: No chest pain, chest pressure or chest discomfort, palpitations, edema, orthopnea, syncopal events. RESPIRATORY: No shortness of breath, cough or sputum, wheezing, hemoptysis. GASTROINTESTINAL: + anorexia, nausea, vomiting, diarrhea, abdominal pain, No melena, BRBPR. GENITOURINARY: No dysuria, frequency, urgency or retention. NEUROLOGICAL: No headache, dizziness, syncope, paralysis, ataxia, numbness or tingling in the extremities, focal weakness, change in bowel or bladder control, seizure. MUSCULOSKELETAL: + muscle, back pain, joint pain or stiffness. HEMATOLOGIC: No anemia, bleeding or bruising. LYMPHATICS: No enlarged nodes. No history of splenectomy. PSYCHIATRIC: + history of depression or anxiety. ENDOCRINOLOGIC: No reports of sweating, cold or heat intolerance. No polyuria or polydipsia. ALLERGIES: No history of asthma, hives, eczema or rhinitis. Vital Signs Vital Signs Vital Signs: 04/05/21 18:17 Temperature 95.8 F L Temperature Source Temporal Pulse Rate 117 H Respiratory Rate 16 Blood Pressure 156/55 H Blood Pressure Mean 88 Pulse Ox 98 Oxygen Delivery Method Room Air Weight Weight: 175 lb Body Mass Index (BMI) 25.8 Physical Exam Narrative Physical Examination: General: Awake, alert, oriented x 3 and cooperative, seated upright in the ED bed in no apparent distress. Skin: Normal color, normal turgor, no icterus, no cyanosis. HEENT: AT/NC, EOMI, PERRLA, moderately dry MM, no carotid bruits or JVD noted. Lungs: Mildly diminished, greater bases, appropriate effort, no rales, ronchi or wheezing. Heart: Regular rate and rhythm; no gallop, rub audible. Abdomen: Soft, mildly distended, mild generalized discomfort but no rebound or guarding, very diffuse hypoactive bowel sounds, no obvious HSM. Extremities: No cyanosis, clubbing, or edema. Neurological: Patient awake, alert, oriented as noted, cognitive function intact; pupils equally reactive to light and accommodation, cranial nerves II-XII grossly normal, moving all 4 extremities, no focal deficits, strength mildly to moderately global decrease secondary to acute presentation. Psychiatric: Affect appears fatigued, no acute evidence of depressive or anxiety feelings. Results Lab / Micro Data Result Diagrams: 04/05/21 19:20 04/05/21 19:20 Labs: Laboratory Results - last 24 hr 04/05/21 19:20: WBC 10.7, RBC 5.96 H, Hgb 17.1 H, Hct 51.0 H, MCV 85.6, MCH 28.7, MCHC 33.5, RDW Std Deviation 44.1 H, RDW Coeff of Raquel 14.3, Plt Count 443, MPV 10.1, Immature Gran % (Auto) 0.600, Neut % (Auto) 69.9, Lymph % (Auto) 20.7, [place] % (Auto) 7.4, Eos % (Auto) 0.6, Baso % (Auto) 0.8, Absolute Neuts (auto) 7.5, Absolute Lymphs (auto) 2.20, Nucleated RBC % 0 04/05/21 19:20: Sodium 141, Potassium 2.5 L*, Chloride 109 H, Carbon Dioxide 25.0, Anion Gap 7, BUN 14, Creatinine 1.18 H, Estim Creat Clear Calc 66.89, Est GFR (MDRD) Af Amer 65, Est GFR (MDRD) Non-Af 54 L, BUN/Creatinine Ratio 11.9, Glucose 122 H, Calcium 10.3 H, Total Bilirubin 0.50, AST 35, ALT 57 H, Alkaline Phosphatase 233 H, Total Protein 9.1 H, Albumin 4.1, Globulin 5.0 H, Albumin/Globulin Ratio 0.8 L, Lipase 123 04/05/21 20:05: Urine Color Yellow, Urine Clarity Sl. Cloudy, Urine pH 6.0, Ur Specific [place] 1.015, Urine Protein 30 H, Urine Glucose (UA) Normal, Urine Ketones 5 H, Urine Occult Blood 150 H, Urine Nitrite Negative, Urine Bilirubin Negative, Urine Urobilinogen Normal, Ur Leukocyte Esterase 500 H, Urine RBC 25-50 SEEN, Urine WBC 50-100 SEEN, Ur Squamous Epith Cells 10-25 SEEN, Urine Bacteria 1+, Urine Mucus 0 SEEN Micro: Microbiology 04/05/21 20:05 Nasal Secretion SARS-CoV-2 Antigen (Rapid) - Final Radiology Impression KUB X-Ray 04/05/21 20:22 IMPRESSION: Air-filled small and large bowel suggesting an ileus. Electronically Signed: Marky Ram MD at 20:45 EST , Service support , Assessment & Plan Assessment/Plan (1) Abdominal pain: QUALIFIERS: Abdominal location: unspecified location Qualified Code(s): R10.9 - Unspecified abdominal pain PLAN: The patient is a 40 y/o F w/ PMHx: HTN, HLD, IBS, Fibromylagia, Hx DVT, Chronic pain syndrome, Anxiety and Depression/Panic disorder/Unclear personality disorder, GERD, Tobacco use who presents to the [facility] ED on 04/05/21 with history of ongoing abdominal pain, nausea, emesis and diarrhea x 2 weeks with history of hiatal hernia repair 3 weeks prior in [place] with underlying history of issues with gastric emptying currently on a pur?ed food diet without any associated fevers or chills. 1. N/V/D with possible gastroenteritis and resulting ileus: We will admit to medical surgical floor on telemetry given potassium level, will continue aggressive hydration, will obtain c diff, stool cx, will obtain COVID PCR, will not start antibiotics at this time given unclear source pending stool studies as may be viral gastroenteritis, NPO status given ileus, maintain on IV PPI, consult General Surgery given findings to be cautious and underlying gastric emptying syndrome as well as recent surgery, anti-emetics, pain regimen PRN. We will hold off on any scheduled Reglan pending surgery evaluation given history of difficulty with gastric emptying. Per discussion with general surgery will obtain CT abdomen with IV contrast as patient is unable to take oral contrast she notes secondary to inability to keep down. 2. Possible UTI, Poor sample: UA with notable urine SECs, will request repeat sample and send for Cx/UA, maintain on IV rocephin in the interim, de-escalate off if repeat unremarkable with better sample. 3. Hypokalemia: Admission K+ 2.5, magnesium level requested, supplementation given, repeat level in AM. 4. Chronic pain syndrome, fibromyalgia: We will continue patient home tizanidine, gabapentin. 5. Anxiety and depression/panic disorder/unclear personality disorder: We will continue patient home nortriptyline, duloxetine, trazodone regimen. 6. Hypertension: Continue home regimen including propranolol with hold parameters as needed, PRN hydralazine. 7. Hyperlipidemia: We will continue patient on statin therapy. 8. Tobacco Abuse: Encouraged cessation, inpatient consultation per RT, NR if desired. 9. GERD: We will maintain on IV PPI. 10. DVT prophylaxis: SCDs, Lovenox. Charges/Coding Visit Charges OBSV E&M: 30234 Initial observation care L3
[2021-04-05 22:02] VITALS: BP 145/78; PULSE 76; RESP 18; TEMP 36.4; O2SAT 97
[2021-04-05 23:23] LABS: Magnesium 2.5 mg/dL (1.6-2.6)
[2021-04-05 23:40] VITALS: BP 123/77; PULSE 90; RESP 18; TEMP 36.4; O2SAT 99; BMI 24.8
[2021-04-06] VITALS (11 sets, daily range): BP systolic 115–131; BP diastolic 74–98; PULSE 92–104; RESP 16–18; TEMP 36.5–36.8; O2SAT 95–98
--- NOTE | 2021-04-06 00:07 | CT_ITS ---
STUDY: CT ABDOMEN AND PELVIS WITH CONTRAST REASON FOR EXAM: Female, 40 years old. abdominal pain RADIATION DOSAGE (If Supplied By Facility): CTDIvol = ( 24.63 ) mGy, DLP = ( 1113.48 ) mGycm TECHNIQUE: Transaxial images were obtained from the dome of the diaphragm to the symphysis pubis without oral contrast. IV 100mL Isovue-370 was administered. Sagittal and coronal images were reconstructed. Individualized dose optimization techniques were used for this CT. COMPARISON: 07/04/2020. FINDINGS: Bilateral lower lobe atelectasis. The visualized portions of the heart are within normal limits. Normal liver. There are surgical clips in the gallbladder fossa consistent with a prior cholecystectomy. Normal spleen. Normal pancreas. Normal bilateral adrenal glands. Normal right kidney. Normal left kidney. Normal visualized stomach. Normal small intestine. Scattered areas of distention of the colon with fluid within the lumen and borderline thickening of the wall which may indicate colitis. The appendix is visualized and appears normal. Normal abdominal aorta. Normal inferior vena cava. Normal retroperitoneum. Normal urinary bladder. Normal visualized uterus. Normal abdominal wall. Normal osseous structures. CT/Abdomen/Pelvis W IV Cont ONLY IMPRESSION: Possible mild colitis. No acute appendicitis or bowel obstruction. Status post cholecystectomy otherwise unremarkable abdominal viscera. Electronically Signed: Aspen Spence MD at 3:32 EST , Service support ,
--- NOTE | 2021-04-06 00:17 | PCS.PANDOC ---
PANDEMIC DOCUMENTATION INITIATED: Date: 12/31/2020 Time: 190
[2021-04-06] MEDS: 0.9% Normal Saline 1,000 ML 125 ML IV ×2 (00:26→11:57)
[2021-04-06] MEDS: Potassium Chloride IVPB 10 MEQ 100 MEQ IV BOLUS ×2 (00:30→01:36)
[2021-04-06] MEDS: oxyCODONE 5 MG Tablet PO ×3 (01:23→17:16)
[2021-04-06] MEDS: Temazepam 15 MG Capsule PO (01:23)
[2021-04-06] MEDS: Gabapentin 300 MG Capsule PO ×2 (01:23→09:46)
[2021-04-06] MEDS: traZODone 100 MG Tablet 200 MG PO (01:23)
[2021-04-06] MEDS: Atorvastatin Calcium 20 MG Tablet PO (01:24)
[2021-04-06] MEDS: Ondansetron 4 MG/2 ML Vial IV ×2 (01:24→17:16)
[2021-04-06] MEDS: Ceftriaxone 1 GM/50 ML BAG IV (02:14)
[2021-04-06] MEDS: Dicyclomine 10 MG Capsule 20 MG PO ×2 (05:08→13:32)
--- NOTE | 2021-04-06 08:06 | EX.PCM.CON.S ---
Assessment & Plan Assessment/Plan (1) Abdominal pain: (2) UTI (urinary tract infection): (3) Diarrhea: PLAN: Viewed CT abdomen pelvis with the patient. No signs of a distended stomach or small bowel. Patient does have some gas distended colon. Patient has been having flatus and previously loose stools/incontinent. We will plan to check stool studies. Okay for full quit diet. No current plans for surgical intervention. Discussed with Dr. Mcwilliams. Haley Gutiérrez M.D. Pager: [phone] [facility] [address] [place] [address], Outpatient Pavilion, [address] [place] [address] Office: [phone] HPI Consult Data Date of Consult: 04/06/21 HPI Narrative HPI Narrative: KARLA LANCE, is a 40 F who presents to the ER due to abdominal pain/nausea and vomiting and diarrhea. Patient states about 3 weeks ago she had hiatal hernia surgery by Dr. Little at [facility]. Patient states since surgery she has nausea continuously and has vomiting maybe about once a day. Patient states that she has been referred to [facility] due to abnormal gastric emptying study but she has unable to get an appointment until later this month/next month. Patient currently taking Prilosec for reflux which patient still having symptoms?patient states she want to stay on the Prilosec when asked if she is ever tried anything different. Patient states she had her gallbladder about 6 or 7 years ago since then she has had loose stools and was diagnosed with IBS about that time. Patient states she has been incontinent of stool more recently states her last diarrhea was about 6 PM but has had multiple episodes of flatus. Patient CT abdomen pelvis was done showed some gas distended colon and official report calls possible mild colitis. Patient's white blood count was normal in the ER. She is being treated currently for UTI. [facility] Medical History (Updated 04/06/21 @ 09:[address] Haley Gutiérrez MD) Abdominal pain Anxiety Arthritis Back pain Bipolar disorder Blackout Chest pain Chronic pain Depression DVT (deep venous thrombosis) Fibromyalgia Gastric reflux GERD (gastroesophageal reflux disease) Hiatal hernia High cholesterol History of edema History of IBS History of steroid therapy History of stress test HLD (hyperlipidemia) HTN (hypertension) IBS (irritable bowel syndrome) Injury of back Insomnia Kidney stones Kidney stones Major depressive disorder, recurrent, unspecified Migraine Opioid use disorder panic Personality disorder, unspecified Shortness of breath on exertion Smoker Ureteral calculus, right Walker as ambulation aid Wears dentures Home Medications medroxyprogesterone 150 mg IM .[id number] 03/09/15 [History Last Taken 04/05/21] gabapentin 300 mg PO BID 08/09/16 [History Last Taken 04/05/21] atorvastatin 20 mg PO QHS 10/13/17 [History Last Taken 04/04/21] nortriptyline [Pamelor] 100 mg PO QHS 10/13/17 [History Last Taken 04/05/21] trazodone 200 mg PO QHS 11/12/18 [History Last Taken 04/04/21] topiramate 25 mg PO DAILY 11/24/18 [History Last Taken 04/05/21] duloxetine [Cymbalta] 120 mg PO DAILY 06/02/19 [History Last Taken 12/01/19] propranolol 20 mg PO BID 05/03/20 [History Last Taken 04/05/21] hydroxyzine HCl 100 mg PO QHS 11/27/20 [History Last Taken 04/05/21] lamotrigine 100 mg PO DAILY 11/27/20 [History Last Taken Unknown] potassium 99 mg PO DAILY 11/27/20 [History Last Taken 04/05/21] temazepam 15 mg PO QHS 11/27/20 [History Last Taken Unknown] tizanidine 4 mg PO TID PRN 11/27/20 [History Last Taken 04/05/21] potassium citrate 10 meq PO TID 02/25/21 [History Last Taken Unknown] dicyclomine 20 mg PO TID 04/06/21 [History Last Taken Unknown] hydrocodone-acetaminophen 1 tab PO TID 04/06/21 [History Last Taken Unknown] omeprazole 40 mg PO DAILY 04/06/21 [History Last Taken 04/05/21] Allergy/AdvReac Type Severity Reaction Status Date / Time aspirin AdvReac Nausea Verified 04/05/21 18:17 Family History (Updated 04/05/21 @ 23:[address] Karen Griffiths MD) Father Hypertension Heart disease Brother CAD (coronary artery disease) Myocardial infarction Mother Heart disease Myocardial infarction Surgical History (Updated 04/05/21 @ 23:55 by Christy Aragon) History of cholecystectomy History of esophagogastroduodenoscopy (EGD) History of repair of hiatal hernia S/P laparoscopic cholecystectomy Social History (Updated 04/05/21 @ 23:[address] Karen Griffiths MD) household members: children Smoking Status: Current every day smoker tobacco type: cigarettes Smoking packs per day: 1 Smoking cigarettes per day: 20.0 alcohol intake: never substance use type: does not use ROS Constitutional Constitutional: Denies fever(s) ENT HEENT: Denies dizziness Cardiovascular Cardiovascular: Denies chest pain Respiratory/Chest Respiratory/Chest: Denies shortness of breath at rest Gastrointestinal Gastrointestinal: Reports abdominal pain, diarrhea, dysphagia, heartburn, loose stools, nausea and vomiting; Denies constipation or hematemesis Genitourinary Genitourinary: Denies burning urination Musculoskeletal Musculoskeletal: Denies joint pain Integumentary Integumentary: Denies rash Neurologic Neurologic: Denies focal weakness Endocrine Endocrinology: Denies palpitations Hematologic/Lymphatic Hematologic/Lymphatic: Denies easy bleeding or easy bruising Physical Exam Const alert, oriented x3 and no apparent distress HEENT normocephalic and head/scalp atraumatic Resp normal respiratory effort Cardio regular rate GI soft to palpation; Negative for non-distended Palpation: tender other (Mild diffuse, no rebound); Negative for guarding Extremity no clubbing, cyanosis or edema Neuro CN's II-XII intact bilaterally Psych mental status grossly normal Lab / Micro Data Result Diagrams: 04/06/21 07:35 04/06/21 07:35 Labs: Laboratory Results - last 24 hr 04/05/21 19:20: WBC 10.7, RBC 5.96 H, Hgb 17.1 H, Hct 51.0 H, MCV 85.6, MCH 28.7, MCHC 33.5, RDW Std Deviation 44.1 H, RDW Coeff of Raquel 14.3, Plt Count 443, MPV 10.1, Immature Gran % (Auto) 0.600, Neut % (Auto) 69.9, Lymph % (Auto) 20.7, [place] % (Auto) 7.4, Eos % (Auto) 0.6, Baso % (Auto) 0.8, Absolute Neuts (auto) 7.5, Absolute Lymphs (auto) 2.20, Nucleated RBC % 0 04/05/21 19:20: Sodium 141, Potassium 2.5 L*, Chloride 109 H, Carbon Dioxide 25.0, Anion Gap 7, BUN 14, Creatinine 1.18 H, Estim Creat Clear Calc 66.89, Est GFR (MDRD) Af Amer 65, Est GFR (MDRD) Non-Af 54 L, BUN/Creatinine Ratio 11.9, Glucose 122 H, Calcium 10.3 H, Total Bilirubin 0.50, AST 35, ALT 57 H, Alkaline Phosphatase 233 H, Total Protein 9.1 H, Albumin 4.1, Globulin 5.0 H, Albumin/Globulin Ratio 0.8 L, Lipase 123 04/05/21 19:20: Magnesium 2.5 04/05/21 20:05: Urine Color Yellow, Urine Clarity Sl. Cloudy, Urine pH 6.0, Ur Specific [place] 1.015, Urine Protein 30 H, Urine Glucose (UA) Normal, Urine Ketones 5 H, Urine Occult Blood 150 H, Urine Nitrite Negative, Urine Bilirubin Negative, Urine Urobilinogen Normal, Ur Leukocyte Esterase 500 H, Urine RBC 25-50 SEEN, Urine WBC 50-100 SEEN, Ur Squamous Epith Cells 10-25 SEEN, Urine Bacteria 1+, Urine Mucus 0 SEEN Micro: Microbiology 04/05/21 20:05 Nasal Secretion SARS-CoV-2 Antigen (Rapid) - Final Radiology Impression KUB X-Ray 04/05/21 20:22 IMPRESSION: Air-filled small and large bowel suggesting an ileus. Electronically Signed: Marky Ram MD at 20:45 EST , Service support , Abdomen/Pelvis CT 04/06/21 00:07 IMPRESSION: Possible mild colitis. No acute appendicitis or bowel obstruction. Status post cholecystectomy otherwise unremarkable abdominal viscera. Electronically Signed: Aspen Spence MD at 3:32 EST , Service support , Procedure Criteria Type of Procedure Procedure Type: Elective Elective Risks - COVID COVID Risk Discussion: The surgeon/proceduralist and patient have discussed in detail the risk of exposure to and/or potential harm posed by the COVID-19 virus with having a surgery/procedure at this time versus the risk of delaying the surgery/procedure. It is not possible to know either the risk of delaying the surgery or procedure or chance of getting an infection with perfect accuracy, but a joint decision was made between the patient and the surgeon/proceduralist to proceed at this time with the scheduled surgery/procedure as indicated on the consent form. Charges/Coding Visit Charges Inpatient E&M: 12910 Init Hosp L3
[2021-04-06 08:23] LABS: Absolute Lymphocyte Count 1.85 X10^3/uL (0.83-4.51); Absolute Neutrophil Count 5.7 X10^3/uL (2.0-7.7); Basophil# 0.07 X10^3/uL; Basophil% 0.8 % (0-1); Eosinophil# 0.08 X10^3/uL; Hematocrit 41.8 % (37-47); Lymphocyte # 1.85 X10^3/ul (0.83-4.51); Lymphocyte % 22.1 % (19-41); Mean Corp Hgb Conc 33.5 g/dL (32-36); Mean Corpuscular Hgb 28.8 pg (27.0-32.0); Mean Platelet Vol. 10.3 fl (6.2-12.0); Monocyte# 0.65 X10^3/uL; Monocyte% 7.8 % (0-10); NRBC Flagged by Analyzer 0 % (0-5); Neutrophil % 67.9 % (47-70); Platelet Count 361 K/mm3 (150-450); RBC Distribution Width CV 14.4 % (11.6-14.6); RBC Distribution Width SD 45.1 fl (35.1-43.9); Red Blood Count 4.86 M/mm3 (4.2-5.4); White Blood Count 8.4 K/mm3 (4.4-11.0)
[2021-04-06 09:03] LABS: ALB/GLOB Ratio 0.8 RATIO (0.9-2.4); AST(SGOT) 26 U/L (15-37); Alanine Aminotransfer ALT/SGPT 43 U/L (13-56); Alkaline Phosphatase 177 U/L (45-117); Anion Gap 6 (5-15); BUN 11 mg/dL (7-18); BUN/Creat Ratio 13.3 RATIO (10-20); Calcium,Total 8.9 mg/dL (8.5-10.1); Chloride 113 mmol/L (98-107); Creatinine, Serum 0.82 mg/dL (0.55-1.02); EST Glomerular Filtration Rate 82 mL/min (>60); Est Glom Filt Rate - Afr Amer 99 mL/min (>60); Estimated Creatinine Clearance 99.61 ml/min; Globulin 3.8 g/dL (2.2-4.2); Glucose 95 mg/dL (74-106); Potassium 2.7 mmol/L (3.5-5.1); Protein, Total 6.8 g/dL (6.4-8.2); Sodium Level 143 mmol/L (136-145)
--- NOTE | 2021-04-06 09:40 | NURSING ---
dr luu aware of low k+ at 2.7 and new orders given
[2021-04-06] MEDS: Acetaminophen 325 MG Tablet 650 MG PO (09:43)
[2021-04-06] MEDS: Enoxaparin 40 MG/0.4 ML Syringe SC (09:46)
[2021-04-06] MEDS: Topiramate 25 MG Tablet PO (09:46)
[2021-04-06] MEDS: Potassium Chloride Oral Tablet 20 MEQ 40 MEQ PO (09:52)
[2021-04-06] MEDS: DULoxetine Hcl 30 MG Capsule 90 MG PO (09:53)
[2021-04-06] MEDS: 0.9% Saline Lock 10 ML Syringe IV ×2 (09:55→12:08)
[2021-04-06] MEDS: Potassium Chloride 10mEq/100mL 10 MEQ/100 ML IV.SOLN. 100 MEQ IV BOLUS ×3 (11:55→14:19)
[2021-04-06] MEDS: HYDROmorphone 1 MG/ML Syringe IV (12:08)
[2021-04-06 16:04] LABS: Anion Gap 4 (5-15); BUN 8 mg/dL (7-18); BUN/Creat Ratio 9.1 RATIO (10-20); Calcium,Total 8.7 mg/dL (8.5-10.1); Chloride 118 mmol/L (98-107); Creatinine, Serum 0.88 mg/dL (0.55-1.02); EST Glomerular Filtration Rate 75 mL/min (>60); Est Glom Filt Rate - Afr Amer 91 mL/min (>60); Estimated Creatinine Clearance 92.81 ml/min; Glucose 102 mg/dL (74-106); Potassium 3.4 mmol/L (3.5-5.1); Sodium Level 142 mmol/L (136-145)
--- NOTE | 2021-04-06 18:19 | PCM.DC ---
Discharge Instructions Diet Discharge Diet: No restrictions Activity Discharge Activity: Return to Normal Activity Weight Bearing Status: Full weight bearing Follow Up Care Test Results: Test results from this visit will be discussed in further detail at your follow-up appointment, if applicable. Discharge Plan Admission Admit Date/Time: 04/05/21 21:52 Primary Reason for Your Visit: gastroenteritis Attending Provider: Jeyson Buckley Primary Care Provider: Tom Giraldo Consulting Providers: Haley Gutiérrez Discharge Orders/Prescriptions Prescriptions: New hydrocodone-acetaminophen 5-325 mg tablet 1 tab PO Q6H PRN (Reason: pain) 7 Days Qty: 20 RF: 0 ondansetron HCl [Zofran] 4 mg tablet 4 mg PO Q6H PRN (Reason: nausea and vomiting) Qty: 20 RF: 0 Continued medroxyprogesterone 150 MG/ML syringe 150 mg IM .[id number] RF: 0 gabapentin 300 MG capsule 300 mg PO BID RF: 0 nortriptyline [Pamelor] 50 MG capsule 100 mg PO QHS RF: 0 trazodone 100 MG tablet 200 mg PO QHS RF: 0 topiramate 25 tablet 25 mg PO DAILY RF: 0 duloxetine [Cymbalta] 30 MG capsule 120 mg PO DAILY RF: 0 propranolol 20 MG tablet 20 mg PO QHS RF: 0 temazepam 15 mg capsule 15 mg PO QHS RF: 0 hydroxyzine HCl 100 mg Tablet 100 mg PO QHS RF: 0 lamotrigine 100 mg tablet 100 mg PO DAILY RF: 0 omeprazole 40 MG capsule,delayed release(DR/EC) 40 mg PO DAILY RF: 0 Changed potassium citrate 10 mEq (1,080 mg) Tablet Extended Release 20 meq PO TID Qty: 180 RF: 0 Discontinued atorvastatin 40 MG tablet 20 mg PO QHS RF: 0 tizanidine 4 mg tablet 4 mg PO TID PRN (Reason: Pain) RF: 0 potassium 99 mg Tablet 99 mg PO DAILY RF: 0 hydrocodone-acetaminophen 5-325 mg tablet 1 tab PO TID RF: 0 dicyclomine 20 mg tablet 20 mg PO TID RF: 0 Referrals / Follow Up: Tom Giraldo MD [Primary Care Provider] - Within 2 Weeks Disposition Disposition (needs filled in before D/C Order can be placed): Home, Self Care
--- NOTE | 2021-04-06 18:28 | PCM.DC.SUM ---
Providers Date of Admission: 04/05/21 Date of Discharge: 04/06/21 Primary Care Physician: Dr. Tom Giraldo MD Consultations 04/06/21 00:07 Consult: General Surgery Routine Consulting Provider: Haley Gutiérrez Reason for Consult: Recent hiatal hernia surgery in [place], ileus on KUB, N/V/D x 2 weeks. EMERGENT Consult: No MD Notified: Yes Date Notified: 04/05/21 Time Notified: 21:55 Method of Notification: cortext Reason For Visit: ileus, n/v/d, hypokalemia Diagnosis Discharge Diagnosis (1) Abdominal pain: Status: Acute Code(s): R10.9 - Unspecified abdominal pain (2) UTI (urinary tract infection): Status: Acute Code(s): N39.0 - Urinary tract infection, site not specified (3) Diarrhea: Status: Acute Code(s): R19.7 - Diarrhea, unspecified Plan: 1. Abdominal pain-etiology unknown #2 degenerative disc disease of the lumbar spine #3 fibromyalgia #4 chronic diarrhea-etiology unclear #5 hypokalemia-etiology unclear Medications at Discharge Home Medications medroxyprogesterone 150 mg IM .[id number] 03/09/15 gabapentin 300 mg PO BID 08/09/16 nortriptyline [Pamelor] 100 mg PO QHS 10/13/17 trazodone 200 mg PO QHS 11/12/18 topiramate 25 mg PO DAILY 11/24/18 duloxetine [Cymbalta] 120 mg PO DAILY 06/02/19 propranolol 20 mg PO QHS 05/03/20 hydroxyzine HCl 100 mg PO QHS 11/27/20 lamotrigine 100 mg PO DAILY 11/27/20 temazepam 15 mg PO QHS 11/27/20 hydrocodone-acetaminophen 1 tab PO Q6H PRN 7 Days #20 tab 04/06/21 omeprazole 40 mg PO DAILY 04/06/21 ondansetron HCl [Zofran] 4 mg PO Q6H PRN #20 tab 04/06/21 potassium citrate 20 meq PO TID #180 tab 04/06/21 Hospital Course Operations None Procedures None Summary of Care Provided Minutes Spent on Discharge: 30 Hospital Course: This 40-year-old white female was seen in the emergency room at [facility] with a chief complaint of nausea, persistent diarrhea, and generalized abdominal pain. Patient states she has had abdominal surgery for repair of a hiatal hernia approximately 3 weeks ago, she was referred to the [facility] to be seen for a diagnosis of gastroparesis but she has not yet been seen there. Patient also has a history of fibromyalgia and chronic back pain from degenerative disc disease. Labs obtained in the emergency room revealed a normal CBC, chemistry panel showed a low potassium at 2.5 and chloride was 109. Patient's urinalysis was not a clean catch urine and showed 25-50 RBCs, 50-100 WBCs, +1 bacteria, and 10-25 squamous epithelial cells. Patient had a CT of the abdomen and pelvis which showed possible mild colitis, no acute appendicitis or bowel obstruction was noted to be present. Patient was placed in observation status on MedSurg 3, she was given IV fluids, urinalysis resulted in showing mixed gram-positive organisms and she was not felt to have had a urinary tract infection. She was seen in consultation by general surgery, she was given IV potassium replacement. General surgery did not feel the patient had colitis or an acute process. On 04/06/2021, patient was seen and examined: On examination she appeared in good health and spirits, she does not appear to be in any distress. Vital signs as documented. Skin warm and dry and without overt rashes. Neck without JVD, thyroid appears normal, trachea is midline, neck is supple. Lungs clear, normal air movement was noted. Heart exam notable for regular rhythm, normal sounds and absence of murmurs, rubs or gallops. Abdomen unremarkable and without evidence of organomegaly, masses, or abdominal aortic enlargement, bowel sounds are present in all 4 quadrants, no abdominal tenderness was noted. Extremities nonedematous, no cyanosis was noted, no clubbing was noted. Neuro: Cranial nerves II through XII are grossly intact, no focal motor deficits were noted, sensation to light touch and pinprick is intact, motor exam 5/5 throughout. Psych: Patient is alert and oriented x3, she does not appear anxious or depressed, she does not appear agitated. Patient was felt to be stable for discharge, she was instructed to follow-up with her appointment in [place] regarding her gastroparesis. Patient was given a prescription for antinausea medication as well as a few pain pills to take if needed. Patient's outpatient potassium was increased also. Medical Records Data Medical Nutrition Assessment Dietitian: Malnutrition Criteria Met Start: 04/06/21 10:46 Freq: Status: Active Protocol: Document 04/06/21 10:46 AG (Rec: 04/06/21 10:46 AG [id number]) Nutrition Malnutrition Evidence of Malnutrition Exists Yes Malnutrition (severe): Acute Illness/Injury Evidenced By Suboptimal Energy Intake ( Severe),Weight Loss (Severe) Clinical Problem Acute Disease or Injury Related Malnutrition Etiology severe, acute malnutrition r/t inadequate energy intake d/t GI dysfunction Signs/Symptoms as evidenced by estimated PO intake meeting <50% of estimated nutritional needs x 3 weeks; unintentional wt loss of 16.7#/9% wt loss x 1 month Status Active Problem Recommendation Dietitian Recommendations/Changes continue full liquid diet as tolerated; recommend advance as indicated to transitional diet. Will fortify milkshake or smoothie w/ Beneprotein as pt is accepting. Weight / BMI Weight Weight: 78.6 kg Body Mass Index (BMI) 24.8 ABG / Lab / Microbiology Data Result Diagrams: 04/06/21 07:35 04/06/21 15:34 Laboratory: Laboratory Results - last 24 hr 04/05/21 19:20: WBC 10.7, RBC 5.96 H, Hgb 17.1 H, Hct 51.0 H, MCV 85.6, MCH 28.7, MCHC 33.5, RDW Std Deviation 44.1 H, RDW Coeff of Raquel 14.3, Plt Count 443, MPV 10.1, Immature Gran % (Auto) 0.600, Neut % (Auto) 69.9, Lymph % (Auto) 20.7, [place] % (Auto) 7.4, Eos % (Auto) 0.6, Baso % (Auto) 0.8, Absolute Neuts (auto) 7.5, Absolute Lymphs (auto) 2.20, Nucleated RBC % 0 04/05/21 19:20: Sodium 141, Potassium 2.5 L*, Chloride 109 H, Carbon Dioxide 25.0, Anion Gap 7, BUN 14, Creatinine 1.18 H, Estim Creat Clear Calc 66.89, Est GFR (MDRD) Af Amer 65, Est GFR (MDRD) Non-Af 54 L, BUN/Creatinine Ratio 11.9, Glucose 122 H, Calcium 10.3 H, Total Bilirubin 0.50, AST 35, ALT 57 H, Alkaline Phosphatase 233 H, Total Protein 9.1 H, Albumin 4.1, Globulin 5.0 H, Albumin/Globulin Ratio 0.8 L, Lipase 123 04/05/21 19:20: Magnesium 2.5 04/05/21 20:05: Urine Color Yellow, Urine Clarity Sl. Cloudy, Urine pH 6.0, Ur Specific [place] 1.015, Urine Protein 30 H, Urine Glucose (UA) Normal, Urine Ketones 5 H, Urine Occult Blood 150 H, Urine Nitrite Negative, Urine Bilirubin Negative, Urine Urobilinogen Normal, Ur Leukocyte Esterase 500 H, Urine RBC 25-50 SEEN, Urine WBC 50-100 SEEN, Ur Squamous Epith Cells 10-25 SEEN, Urine Bacteria 1+, Urine Mucus 0 SEEN 04/06/21 07:35: WBC 8.4, RBC 4.86, Hgb 14.0, Hct 41.8, MCV 86.0, MCH 28.8, MCHC 33.5, RDW Std Deviation 45.1 H, RDW Coeff of Raquel 14.4, Plt Count 361, MPV 10.3, Immature Gran % (Auto) 0.400, Neut % (Auto) 67.9, Lymph % (Auto) 22.1, [place] % (Auto) 7.8, Eos % (Auto) 1.0, Baso % (Auto) 0.8, Absolute Neuts (auto) 5.7, Absolute Lymphs (auto) 1.85, Nucleated RBC % 0 04/06/21 07:35: Sodium 143, Potassium 2.7 L*, Chloride 113 H, Carbon Dioxide 24.0, Anion Gap 6, BUN 11, Creatinine 0.82, Estim Creat Clear Calc 99.61, Est GFR (MDRD) Af Amer 99, Est GFR (MDRD) Non-Af 82, BUN/Creatinine Ratio 13.3, Glucose 95, Calcium 8.9, Total Bilirubin 0.40, AST 26, ALT 43, Alkaline Phosphatase 177 H, Total Protein 6.8, Albumin 3.0 L, Globulin 3.8, Albumin/Globulin Ratio 0.8 L 04/06/21 15:34: Sodium 142, Potassium 3.4 L, Chloride 118 H, Carbon Dioxide 20.0 L, Anion Gap 4 L, BUN 8, Creatinine 0.88, Estim Creat Clear Calc 92.81, Est GFR (MDRD) Af Amer 91, Est GFR (MDRD) Non-Af 75, BUN/Creatinine Ratio 9.1 L, Glucose 102, Calcium 8.7 Microbiology: Microbiology 04/05/21 20:05 Nasal Secretion SARS-CoV-2 Antigen (Rapid) - Final Radiography Diagnostic Testing: Radiology Impression KUB X-Ray 04/05/21 20:22 IMPRESSION: Air-filled small and large bowel suggesting an ileus. Electronically Signed: Marky Ram MD at 20:45 EST , Service support , Abdomen/Pelvis CT 04/06/21 00:07 IMPRESSION: Possible mild colitis. No acute appendicitis or bowel obstruction. Status post cholecystectomy otherwise unremarkable abdominal viscera. Electronically Signed: Aspen Spence MD at 3:32 EST , Service support , D/C Instructions Discharge Diet: No restrictions Weight Bearing Status: Full weight bearing Meaningful Use Info Meaningful Use Diagnoses (Choose all that apply): None applicable Discharge Plan Admission Admit Date/Time: 04/05/21 21:52 Primary Reason for Your Visit: gastroenteritis Attending Provider: Jeyson Buckley Primary Care Provider: Tom Giraldo Consulting Providers: Haley Gutiérrez Discharge Orders/Prescriptions Prescriptions: New hydrocodone-acetaminophen 5-325 mg tablet 1 tab PO Q6H PRN (Reason: pain) 7 Days Qty: 20 RF: 0 ondansetron HCl [Zofran] 4 mg tablet 4 mg PO Q6H PRN (Reason: nausea and vomiting) Qty: 20 RF: 0 Continued medroxyprogesterone 150 MG/ML syringe 150 mg IM .[id number] RF: 0 gabapentin 300 MG capsule 300 mg PO BID RF: 0 nortriptyline [Pamelor] 50 MG capsule 100 mg PO QHS RF: 0 trazodone 100 MG tablet 200 mg PO QHS RF: 0 topiramate 25 tablet 25 mg PO DAILY RF: 0 duloxetine [Cymbalta] 30 MG capsule 120 mg PO DAILY RF: 0 propranolol 20 MG tablet 20 mg PO QHS RF: 0 temazepam 15 mg capsule 15 mg PO QHS RF: 0 hydroxyzine HCl 100 mg Tablet 100 mg PO QHS RF: 0 lamotrigine 100 mg tablet 100 mg PO DAILY RF: 0 omeprazole 40 MG capsule,delayed release(DR/EC) 40 mg PO DAILY RF: 0 Changed potassium citrate 10 mEq (1,080 mg) Tablet Extended Release 20 meq PO TID Qty: 180 RF: 0 Discontinued atorvastatin 40 MG tablet 20 mg PO QHS RF: 0 tizanidine 4 mg tablet 4 mg PO TID PRN (Reason: Pain) RF: 0 potassium 99 mg Tablet 99 mg PO DAILY RF: 0 hydrocodone-acetaminophen 5-325 mg tablet 1 tab PO TID RF: 0 dicyclomine 20 mg tablet 20 mg PO TID RF: 0 Referrals / Follow Up: Tom Giraldo MD [Primary Care Provider] - Within 2 Weeks Disposition Disposition (needs filled in before D/C Order can be placed): Home, Self Care Charges/Coding Visit Charges OBSV E&M: 50180 Observation care discharge
== END 2021-04-06 19:25 | disposition home or self-care (01) ==
LOC: ED 21:59 → MS3 22:27
PROVIDERS: Admitting Provider Family Medicine; Emergency Provider Emergency Medicine; PCP Family Medicine; Visit Provider Internal Medicine
DX: N39.0 Urinary tract infection, site not specified (principal); K31.84 Gastroparesis; M51.36 Other intervertebral disc degeneration, lumbar region; M79.7 Fibromyalgia; E87.6 Hypokalemia; M19.90 Unspecified osteoarthritis, unspecified site; K21.9 Gastro-esophageal reflux disease without esophagitis; K58.9 Irritable bowel syndrome, unspecified; E78.5 Hyperlipidemia, unspecified; I10 Essential (primary) hypertension; F41.0 Panic disorder [episodic paroxysmal anxiety]; G89.4 Chronic pain syndrome; F17.210 Nicotine dependence, cigarettes, uncomplicated; F33.9 Major depressive disorder, recurrent, unspecified; Z79.899 Other long term (current) drug therapy; Z86.718 Personal history of other venous thrombosis and embolism
CPT/HCPCS: 36415; 74018; 74177; 80048; 80053; 81001; 83690; 83735; 85025; 87086; 87088; 87426; 96361; 96365; 96366; 96367; 96368; 96372; 96375; 96376; 97802; 99218; 99251; 99284; 99406; J7030; J7050; Q9967; A4216; G0378; G0463; J2405

== ENCOUNTER 2021-04-15 10:21 | Emergency (ER) | payer MEDICAID, SELFPAY ==
[2021-04-15 10:22] VITALS: BP 141/89; PULSE 74; RESP 18; TEMP 36.4; O2SAT 97; BMI 26.6
--- NOTE | 2021-04-15 10:37 | EKG12_ITS ---
Test Reason : AB PAIN Blood Pressure : / mmHG Vent. Rate : 067 BPM Atrial Rate : 067 BPM P-R Int : 130 ms QRS Dur : 088 ms QT Int : 426 ms P-R-T Axes : 029 039 024 degrees QTc Int : 450 ms Normal sinus rhythm Normal ECG Confirmed by JESSICA LAYTON, DIPAK ([id number]), purchase request editor KYLAH DE LEON ([id number]) on 04/16/2021 8:32:30 AM Referred By: OLINDA Confirmed By:DIPAK LOPEZ MD
--- NOTE | 2021-04-15 10:58 | EX.ED.DYSGE1 ---
HPI History of Present Illness Chief Complaint: Abd Pain Informant: patient Onset/Context/Timing Onset: Days Context: Gradual Onset Current Severity: Moderate Maximum Severity: Moderate Narrative Narrative: Patient presents with abdominal pain, diarrhea, headache. She was recently hospitalized for the same due to hypokalemia. She states her symptoms have not really improved and in fact worsened over the holiday weekend. She called her PCP today and they recommended she come in for lab work and treatment. She has not noted any fever. She tried taking some ibuprofen last night. [facility] Medical History Abdominal pain Abdominal pain Anxiety Arthritis Back pain Bipolar disorder Blackout Chest pain Chronic pain Depression Diarrhea DVT (deep venous thrombosis) Fibromyalgia Gastric reflux GERD (gastroesophageal reflux disease) Hiatal hernia High cholesterol History of edema History of IBS History of steroid therapy History of stress test HLD (hyperlipidemia) HTN (hypertension) IBS (irritable bowel syndrome) Ileus Injury of back Insomnia Kidney stones Kidney stones Major depressive disorder, recurrent, unspecified Migraine Opioid use disorder panic Personality disorder, unspecified Shortness of breath on exertion Smoker Ureteral calculus, right UTI (urinary tract infection) Vomiting Walker as ambulation aid Wears dentures Home Medications medroxyprogesterone 150 mg IM .[id number] 03/09/15 [History Last Taken 04/05/21] gabapentin 300 mg PO BID 08/09/16 [History Last Taken 04/05/21] nortriptyline [Pamelor] 100 mg PO QHS 10/13/17 [History Last Taken 04/05/21] trazodone 200 mg PO QHS 11/12/18 [History Last Taken 04/04/21] topiramate 25 mg PO DAILY 11/24/18 [History Last Taken 04/05/21] duloxetine [Cymbalta] 120 mg PO DAILY 06/02/19 [History Last Taken 12/01/19] propranolol 20 mg PO QHS 05/03/20 [History Last Taken 04/05/21] hydroxyzine HCl 100 mg PO QHS 11/27/20 [History Last Taken 04/05/21] lamotrigine 100 mg PO DAILY 11/27/20 [History Last Taken Unknown] temazepam 15 mg PO QHS 11/27/20 [History Last Taken Unknown] hydrocodone-acetaminophen 1 tab PO Q6H PRN 7 Days #20 tab 04/06/21 [Rx Last Taken Unknown] omeprazole 40 mg PO DAILY 04/06/21 [History Last Taken 04/05/21] ondansetron HCl [Zofran] 4 mg PO Q6H PRN #20 tab 04/06/21 [Rx Last Taken Unknown] potassium citrate 20 meq PO TID #180 tab 04/06/21 [Rx Last Taken Unknown] hydrocodone-acetaminophen 1 tab PO Q6H PRN 3 Days #10 tab 04/15/21 [Rx Last Taken Unknown] ondansetron 4 mg PO Q8H PRN #10 tab 04/15/21 [Rx Last Taken Unknown] Allergy/AdvReac Type Severity Reaction Status Date / Time aspirin AdvReac Nausea Verified 04/05/21 18:17 Family History Father Hypertension Heart disease Brother CAD (coronary artery disease) Myocardial infarction Mother Heart disease Myocardial infarction Surgical History History of cholecystectomy History of esophagogastroduodenoscopy (EGD) History of repair of hiatal hernia S/P laparoscopic cholecystectomy Social History household members: children Smoking Status: Current every day smoker tobacco type: cigarettes alcohol intake: never substance use type: does not use ROS ROS ED Constitutional Constitutional ED: Denies chills or fever(s) Eyes Eyes: Denies change in vision ENT ENT ED: Denies sore throat Cardiovascular Cardiovascular: Denies chest pain Respiratory/Chest Respiratory/Chest: Denies cough or dyspnea Gastrointestinal Gastrointestinal: Reports abdominal pain, diarrhea and nausea; Denies vomiting Genitourinary Genitourinary ED: Denies dysuria Musculoskeletal Musculoskeletal: Denies back pain Integumentary Denies rash Neurologic Neurologic: Reports headache(s) and weakness Allergic/Immunologic Allergic/Immunologic ED: Denies urticaria EXAM Physical Exam Const Vital Signs: 04/15/21 10:22 04/15/21 12:15 04/15/21 14:02 Temperature 97.5 F L 97.5 F L Temperature Source Temporal Oral Pulse Rate 74 68 67 Respiratory Rate 18 14 13 Blood Pressure 141/89 H 117/68 112/95 H Blood Pressure Mean 106 84 100 Pulse Ox 97 94 99 Oxygen Delivery Method Room Air Room Air Positive well nourished and well developed General Appearance ED: well developed Eyes PERRL and EOMs intact bilaterally Neck supple Chest Wall inspection of chest normal and palpation of chest normal Resp normal respiratory effort and clear to auscultation bilaterally Cardio regular rate and regular rhythm GI normal to inspection, nondistended, normoactive bowel sounds Palpation: soft and tender other (Mild tenderness of the lower abdomen. No guarding or rebound.) Extremity normal to inspection Neuro oriented x3 Sensorium / Orientation: alert Psych mental status grossly normal Skin no rashes or lesions noted MDM MDM MDM Narrative Medical decision making narrative: Lab work, urinalysis, EKG obtained. Patient given morphine and Zofran for pain. Lab Data Attestation: I reviewed the patient's lab results. Labs: Laboratory Results - last 24 hr 04/15/21 04/15/21 04/15/21 11:00 11:00 12:33 WBC 8.3 RBC 4.93 Hgb 14.2 Hct 44.1 MCV 89.5 MCH 28.8 MCHC 32.2 RDW Std Deviation 51.5 H RDW Coeff of Raquel 15.9 H Plt Count 251 MPV 9.5 Immature Gran % (Auto) 0.400 Neut % (Auto) 63.4 Lymph % (Auto) 28.2 Gem % (Auto) 6.0 Eos % (Auto) 1.2 Baso % (Auto) 0.8 Absolute Neuts (auto) 5.3 Absolute Lymphs (auto) 2.34 Nucleated RBC % 0 Sodium 141 Potassium 3.4 L Chloride 106 Carbon Dioxide 30.0 Anion Gap 5 BUN 7 Creatinine 0.95 Estim Creat Clear Calc 83.09 Est GFR (MDRD) Af Amer 84 Est GFR (MDRD) Non-Af 70 BUN/Creatinine Ratio 7.4 L Glucose 90 Calcium 8.9 Total Bilirubin 0.40 Direct Bilirubin 0.12 AST 22 ALT 42 Alkaline Phosphatase 178 H Total Protein 6.9 Albumin 3.1 L Globulin 3.8 Urine Color Yellow Urine Clarity Sl. Cloudy Urine pH 6.5 Ur Specific [place] 1.010 Urine Protein 15 H Urine Glucose (UA) Normal Urine Ketones 5 H Urine Occult Blood 10 H Urine Nitrite Negative Urine Bilirubin 1 H Urine Urobilinogen 1 H Ur Leukocyte Esterase 100 H Urine RBC 0-5 SEEN Urine WBC 5-10 SEEN Ur Squamous Epith Cells 10-25 SEEN Urine Bacteria 3+ Urine Mucus 0 SEEN Treatment and Re-Evaluation Comments:: White count is normal with no left shift. Chemistry studies significant only for potassium slightly low at 3.4. This is similar to when she was last discharged. Urinalysis is not a clean sample with significant epithelial cells noted. No nitrites. Patient did require a second dose of pain medication while in the emergency room. On repeat evaluation she states her abdomen still hurts. Abdomen is benign with no guarding or rebound. When she was last discharged in the hospital she was given [place] and Zofran which she states did help her symptoms. She is scheduled to see specialist at the [facility] in May. She states her primary care physician will not write her pain medication. Her pain management doctor feels that should come from the surgeon who did her last surgery, but the surgeon states that he has discharged her and it is not his responsibility. Advised patient I can only write limited amount of medication from the emergency room. She voices understanding. Patient be given 10 tabs of [place] as well as Zofran. Discharge Plan Triage Chief Complaint: Abd Pain ED Provider: Heide Gorman Dx/Rx/DC Orders Clinical Impression: Abdominal pain Instructions: ED Abdominal Pain Unkn Cause Fem Prescriptions: New hydrocodone-acetaminophen 5-325 mg tablet 1 tab PO Q6H PRN (Reason: pain) 3 Days Qty: 10 RF: 0 ondansetron 4 mg tablet,disintegrating 4 mg PO Q8H PRN (Reason: nausea and vomiting) Qty: 10 RF: 0 No Action medroxyprogesterone 150 MG/ML syringe 150 mg IM .[id number] RF: 0 gabapentin 300 MG capsule 300 mg PO BID RF: 0 nortriptyline [Pamelor] 50 MG capsule 100 mg PO QHS RF: 0 trazodone 100 MG tablet 200 mg PO QHS RF: 0 topiramate 25 tablet 25 mg PO DAILY RF: 0 duloxetine [Cymbalta] 30 MG capsule 120 mg PO DAILY RF: 0 propranolol 20 MG tablet 20 mg PO QHS RF: 0 temazepam 15 mg capsule 15 mg PO QHS RF: 0 hydroxyzine HCl 100 mg Tablet 100 mg PO QHS RF: 0 lamotrigine 100 mg tablet 100 mg PO DAILY RF: 0 omeprazole 40 MG capsule,delayed release(DR/EC) 40 mg PO DAILY RF: 0 hydrocodone-acetaminophen 5-325 mg tablet 1 tab PO Q6H PRN (Reason: pain) 7 Days Qty: 20 RF: 0 potassium citrate 10 mEq (1,080 mg) Tablet Extended Release 20 meq PO TID Qty: 180 RF: 0 ondansetron HCl [Zofran] 4 mg tablet 4 mg PO Q6H PRN (Reason: nausea and vomiting) Qty: 20 RF: 0 Primary Care Provider: Tom Giraldo Referrals: Tom Giraldo MD [Primary Care Provider] - 1-2 Weeks Disposition Disposition: Home, Self Care
[2021-04-15] MEDS: Ketorolac 30 MG/ML Syringe IV (11:06)
[2021-04-15] MEDS: Morphine 4 MG/ML Syringe IV ×3 (11:06→14:36)
[2021-04-15] MEDS: Ondansetron 4 MG/2 ML Vial IV ×3 (11:06→14:36)
[2021-04-15] MEDS: 0.9% Normal Saline 1,000 ML 1000 ML IV (11:06)
[2021-04-15 11:20] LABS: Absolute Lymphocyte Count 2.34 X10^3/uL (0.83-4.51); Absolute Neutrophil Count 5.3 X10^3/uL (2.0-7.7); Basophil# 0.07 X10^3/uL; Basophil% 0.8 % (0-1); Eosinophils% 1.2 % (0-5); Hematocrit 44.1 % (37-47); Hemoglobin 14.2 g/dL (12.0-15.0); Lymphocyte # 2.34 X10^3/ul (0.83-4.51); Lymphocyte % 28.2 % (19-41); Mean Corp Hgb Conc 32.2 g/dL (32-36); Mean Corpuscular Hgb 28.8 pg (27.0-32.0); Mean Corpuscular Volume 89.5 fL (81-99); Mean Platelet Vol. 9.5 fl (6.2-12.0); NRBC Flagged by Analyzer 0 % (0-5); Neutrophil # 5.26 X10^3/uL (2.7-7.7); Neutrophil % 63.4 % (47-70); Platelet Count 251 K/mm3 (150-450); RBC Distribution Width CV 15.9 % (11.6-14.6); RBC Distribution Width SD 51.5 fl (35.1-43.9); Red Blood Count 4.93 M/mm3 (4.2-5.4); White Blood Count 8.3 K/mm3 (4.4-11.0)
[2021-04-15 11:34] LABS: AST(SGOT) 22 U/L (15-37); Alanine Aminotransfer ALT/SGPT 42 U/L (13-56); Albumin, Serum 3.1 g/dL (3.2-5.0); Alkaline Phosphatase 178 U/L (45-117); Anion Gap 5 (5-15); BUN 7 mg/dL (7-18); BUN/Creat Ratio 7.4 RATIO (10-20); Bilirubin, Direct 0.12 mg/dL (0.00-0.30); Calcium,Total 8.9 mg/dL (8.5-10.1); Chloride 106 mmol/L (98-107); Creatinine, Serum 0.95 mg/dL (0.55-1.02); EST Glomerular Filtration Rate 70 mL/min (>60); Est Glom Filt Rate - Afr Amer 84 mL/min (>60); Estimated Creatinine Clearance 83.09 ml/min; Globulin 3.8 g/dL (2.2-4.2); Glucose 90 mg/dL (74-106); Potassium 3.4 mmol/L (3.5-5.1); Protein, Total 6.9 g/dL (6.4-8.2); Sodium Level 141 mmol/L (136-145)
[2021-04-15 12:15] VITALS: BP 117/68; PULSE 68; RESP 14; TEMP 36.4; O2SAT 94
[2021-04-15 12:44] LABS: Mucous, Urine 0 SEEN /hpf (<or=2+)
[2021-04-15 12:54] LABS: Color, Urine Yellow (Yellow); Glucose, Dipstick Normal (Normal); Ketone-Dipstick 5 mg/dl (Negative); Leukocyte Esterase-Dipstick 100 /ul (Negative); Nitrite-Dipstick Negative (Negative); Occult Blood-Urine 10 /ul (Negative); Protein-Dipstick 15 mg/dl (Negative); Urine Clarity Sl. Cloudy (Clear); Urine Urobilinogen 1 mg/dl (Normal); Urine pH 6.5 (5.0 - 8.0)
[2021-04-15 12:59] LABS: Urine Bilirubin Dipstick 1 mg/dL (Negative)
[2021-04-15 13:01] LABS: Bacteria 3+ /hpf (None Seen); Red Blood Cells-Urine 0-5 SEEN /hpf (0-5); Squamous Epithelial Cells - UA 10-25 SEEN /hpf (5-10); White Blood Cells 5-10 SEEN /hpf (0-5)
[2021-04-15 14:02] VITALS: BP 112/95; PULSE 67; RESP 13; O2SAT 99
[2021-04-15 14:47] VITALS: BP 124/94; PULSE 67; RESP 18; TEMP 36.6; O2SAT 99
== END 2021-04-15 14:51 | disposition home or self-care (01) ==
PROVIDERS: Emergency Provider Emergency Medicine; PCP Family Medicine
DX: R10.30 Lower abdominal pain, unspecified (principal); F41.9 Anxiety disorder, unspecified; M19.90 Unspecified osteoarthritis, unspecified site; F31.9 Bipolar disorder, unspecified; K21.9 Gastro-esophageal reflux disease without esophagitis; E78.5 Hyperlipidemia, unspecified; I10 Essential (primary) hypertension; F17.210 Nicotine dependence, cigarettes, uncomplicated; Z79.899 Other long term (current) drug therapy
CPT/HCPCS: 80048; 80076; 81001; 85025; 93005; 96361; 96374; 96375; 96376; 99285; J7030; A4216; J2405

== ENCOUNTER → 2021-04-25 13:50 | Outpatient (CLI) | payer MEDICAID, SELFPAY ==
[2021-04-25 15:16] LABS: Anion Gap 8 (5-15); BUN 8 mg/dL (7-18); BUN/Creat Ratio 9.5 RATIO (10-20); Calcium,Total 8.6 mg/dL (8.5-10.1); Chloride 109 mmol/L (98-107); Creatinine, Serum 0.84 mg/dL (0.55-1.02); EST Glomerular Filtration Rate 80 mL/min (>60); Est Glom Filt Rate - Afr Amer 97 mL/min (>60); Glucose 69 mg/dL (74-106); Magnesium 2.4 mg/dL (1.6-2.6); Potassium 3.1 mmol/L (3.5-5.1); Sodium Level 140 mmol/L (136-145)
== END ==
PROVIDERS: PCP Family Medicine; Referring Provider Family Medicine; Visit Provider Family Medicine
DX: E87.6 Hypokalemia (principal)
CPT/HCPCS: 36415; 80048; 83735

== ENCOUNTER 2021-04-28 10:24 | Emergency (ER) | payer MEDICAID, SELFPAY ==
[2021-04-28 10:25] VITALS: BP 121/86; PULSE 122; RESP 16; TEMP 36.1; O2SAT 100; BMI 24.3
--- NOTE | 2021-04-28 11:02 | EKG12_ITS ---
Test Reason : HEADACHE Blood Pressure : / mmHG Vent. Rate : 084 BPM Atrial Rate : 084 BPM P-R Int : 154 ms QRS Dur : 090 ms QT Int : 374 ms P-R-T Axes : 054 054 053 degrees QTc Int : 441 ms Normal sinus rhythm Septal TX, age undetermined, cannot be excluded Confirmed by JESSICA LAYTON, DIPAK ([id number]), editor publications KYLAH DE LEON ([id number]) on 05/01/2021 11:09:38 AM Referred By: NADIR Confirmed By:DIPAK LOPEZ MD
--- NOTE | 2021-04-28 11:02 | RAD_ITS ---
STUDY: X-RAY CHEST REASON FOR EXAM: Female, 40 years old. Chest pain TECHNIQUE: Single AP portable view of the chest. COMPARISON: 07/27/2018. FINDINGS: Minimal atelectasis or scarring in the left lower lung. No focal infiltrate is seen. There is no demonstrated pleural abnormality. Normal size heart. Normal mediastinum and sebastián. Normal visualized pulmonary arteries. Normal visualized aortic arch and descending thoracic aorta. Normal visualized thoracic spine. Normal visualized ribs, clavicles, and shoulders. There is no demonstrated abnormality of the visualized soft tissue structures of the upper abdomen. RAD/Chest 1 View (Portable) IMPRESSION: Minimal atelectasis or scarring in the left lower lung. Electronically Signed: Roe Nicole, at 12:52 EST Tel , Service support ,
--- NOTE | 2021-04-28 11:15 | CT_ITS ---
STUDY: CT ABDOMEN AND PELVIS WITH CONTRAST REASON FOR EXAM: Female, 40 years old. Epigastric pain. RADIATION DOSAGE (If Supplied By Facility): CTDIvol = ( 15.31 ) mGy, DLP = ( 777.78 ) mGycm TECHNIQUE: Transaxial images were obtained from the dome of the diaphragm to the symphysis pubis without oral contrast. 100 CC ISOVUE 370 was administered. Sagittal and coronal images were reconstructed. Individualized dose optimization techniques were used for this CT. COMPARISON: None. FINDINGS: The visualized lung bases are unremarkable. The visualized portions of the heart are within normal limits. Normal liver. Normal gallbladder and extrahepatic biliary system. Normal spleen. Normal pancreas. Normal bilateral adrenal glands. Normal right kidney. Normal left kidney. Normal visualized stomach. Nonspecific fluid-filled small bowel loops. Of the ascending and transverse colon and thoracic sensory descending colon consistent with colitis. The appendix is visualized and appears normal. Normal abdominal aorta. Normal inferior vena cava. Normal retroperitoneum. Normal urinary bladder. Very small umbilical hernia containing fat. No demonstrated acute osseous changes. CT/Abdomen/Pelvis W IV Cont ONLY IMPRESSION: Thickening of the colon and nonspecific fluid-filled small bowel loops concerning for enterocolitis. Electronically Signed: Roe Nicole, at 12:51 EST Tel , Service support ,
[2021-04-28] MEDS: 0.9% Normal Saline 1,000 ML 1000 ML IV (11:36)
[2021-04-28] MEDS: DiphenhydrAMINE 50 MG/ML Syringe 25 MG IV (11:36)
[2021-04-28] MEDS: Metoclopramide 10 MG/2 ML Vial IV (11:37)
[2021-04-28 11:48] LABS: Absolute Neutrophil Count 2.7 X10^3/uL (2.0-7.7); Basophil# 0.05 X10^3/uL; Basophil% 1.2 % (0-1); Eosinophil# 0.02 X10^3/uL; Eosinophils% 0.5 % (0-5); Hematocrit 48.4 % (37-47); Hemoglobin 15.5 g/dL (12.0-15.0); Lymphocyte % 23.9 % (19-41); Mean Corpuscular Volume 90.6 fL (81-99); Mean Platelet Vol. 10.2 fl (6.2-12.0); Monocyte# 0.41 X10^3/uL; Monocyte% 9.8 % (0-10); NRBC Flagged by Analyzer 0 % (0-5); Neutrophil % 64.4 % (47-70); Platelet Count 228 K/mm3 (150-450); Red Blood Count 5.34 M/mm3 (4.2-5.4); White Blood Count 4.2 K/mm3 (4.4-11.0)
--- NOTE | 2021-04-28 11:53 | EX.ED.VIS.HA ---
HPI History of Present Illness Chief Complaint: Headache Narrative Narrative: 40-year-old female presenting with multiple complaints. She states that she has a headache and she has a history of migraines and this is somewhat atypical for migraines. It does make her think that maybe her potassium is low. She is describing epigastric pain and abdominal cramping. She has had diarrhea as well. Patient states she has chronically low potassium but does not like to take potassium supplements because it upsets her stomach. She was told previously that her potassium was 3 and was starting to low and she has not taken any potassium since then due to her symptoms. She denies fever or chills. She does have nausea but is not vomiting. Patient denies any urinary or vaginal complaints. She denies cough, fever, shortness of breath. [facility] Medical History Abdominal pain Abdominal pain Anxiety Arthritis Back pain Bipolar disorder Blackout Chest pain Chronic pain Depression Diarrhea DVT (deep venous thrombosis) Fibromyalgia Gastric reflux GERD (gastroesophageal reflux disease) Hiatal hernia High cholesterol History of edema History of IBS History of steroid therapy History of stress test HLD (hyperlipidemia) HTN (hypertension) IBS (irritable bowel syndrome) Ileus Injury of back Insomnia Kidney stones Kidney stones Major depressive disorder, recurrent, unspecified Migraine Opioid use disorder panic Personality disorder, unspecified Shortness of breath on exertion Smoker Ureteral calculus, right UTI (urinary tract infection) Vomiting Walker as ambulation aid Wears dentures Home Medications medroxyprogesterone 150 mg IM .[id number] 03/09/15 [History Last Taken 04/05/21] gabapentin 300 mg PO BID 08/09/16 [History Last Taken 04/05/21] nortriptyline [Pamelor] 100 mg PO QHS 10/13/17 [History Last Taken 04/05/21] trazodone 200 mg PO QHS 11/12/18 [History Last Taken 04/04/21] topiramate 25 mg PO DAILY 11/24/18 [History Last Taken 04/05/21] duloxetine [Cymbalta] 120 mg PO DAILY 06/02/19 [History Last Taken 12/01/19] propranolol 20 mg PO QHS 05/03/20 [History Last Taken 04/05/21] hydroxyzine HCl 100 mg PO QHS 11/27/20 [History Last Taken 04/05/21] lamotrigine 100 mg PO DAILY 11/27/20 [History Last Taken Unknown] temazepam 15 mg PO QHS 11/27/20 [History Last Taken Unknown] hydrocodone-acetaminophen 1 tab PO Q6H PRN 7 Days #20 tab 04/06/21 [Rx Last Taken Unknown] omeprazole 40 mg PO DAILY 04/06/21 [History Last Taken 04/05/21] ondansetron HCl [Zofran] 4 mg PO Q6H PRN #20 tab 04/06/21 [Rx Last Taken Unknown] potassium citrate 20 meq PO TID #180 tab 04/06/21 [Rx Last Taken Unknown] hydrocodone-acetaminophen 1 tab PO Q6H PRN 3 Days #10 tab 04/15/21 [Rx Last Taken Unknown] ondansetron 4 mg PO Q8H PRN #10 tab 04/15/21 [Rx Last Taken Unknown] ondansetron HCl [Zofran] 4 mg PO Q8H PRN #20 tab 04/28/21 [Rx Last Taken Unknown] Allergy/AdvReac Type Severity Reaction Status Date / Time aspirin AdvReac Nausea Verified 04/28/21 10:27 Family History Father Hypertension Heart disease Brother CAD (coronary artery disease) Myocardial infarction Mother Heart disease Myocardial infarction Surgical History History of cholecystectomy History of esophagogastroduodenoscopy (EGD) History of repair of hiatal hernia S/P laparoscopic cholecystectomy Social History household members: children Smoking Status: Current every day smoker tobacco type: cigarettes alcohol intake: never substance use type: does not use ROS ROS ED Constitutional Constitutional ED: Denies chills or fever(s) Eyes Eyes: Denies blurry vision or change in vision ENT ENT ED: Denies rhinorrhea or sore throat Cardiovascular Cardiovascular: Denies chest pain or palpitations Respiratory/Chest Respiratory/Chest: Denies cough, dyspnea or sputum Gastrointestinal Gastrointestinal: Reports abdominal pain and nausea Genitourinary Genitourinary ED: Denies dysuria or hematuria Musculoskeletal Musculoskeletal: Denies myalgias Integumentary Denies abscess or rash Neurologic Neurologic: Denies headache(s) or weakness EXAM Physical Exam Const Vital Signs: 04/28/21 10:25 04/28/21 11:56 04/28/21 12:00 Temperature 97.0 F L Temperature Source Temporal Pulse Rate 122 H 88 Respiratory Rate 16 15 Blood Pressure 121/86 H 126/92 H Blood Pressure Mean 97 103 Pulse Ox 100 99 Oxygen Delivery Method Room Air Room Air Room Air 04/28/21 13:20 Temperature Temperature Source Pulse Rate 88 Respiratory Rate 22 H Blood Pressure 118/88 H Blood Pressure Mean Pulse Ox 97 Oxygen Delivery Method Positive well nourished General Appearance ED: NAD; Negative for pallor HEENT Reports normocephalic and moist mucous membranes atraumatic Eyes PERRL and EOMs intact bilaterally Neck no lymphadenopathy and supple Resp normal respiratory effort and clear to auscultation bilaterally Cardio regular rate and regular rhythm GI Palpation: soft and tender epigastric Neuro oriented x3 Sensorium / Orientation: awake and alert Psych mental status grossly normal Skin General Skin Exam: Negative for jaundice or pallor Lesions: no lesions Rashes: no rashes MDM MDM MDM Narrative Medical decision making narrative: 40-year-old female presenting with epigastric pain, nausea, vomiting. She is concerned she has hypokalemia as she has had this in the past. She does have a headache and has a history of migraines but states this is different. She has no focal neurologic deficits or lateralizing signs or symptoms however. Patient was given Reglan and Benadryl and her headache did improve. She is also given IV fluids. CBC shows that she is leukopenic and lymphopenic and given the patient's diarrhea I had her tested for COVID-19 and she was positive. Her renal function and electrolytes are normal. LFTs are normal with exception of an elevated alkaline phosphatase. I did check an EKG due to the location of her pain and this shows a normal sinus rhythm with a ventricular rate of 84 bpm without sign of ischemic change on my interpretation. High-sensitivity troponin is also 6. I do not believe this is cardiac in nature. Patient's potassium is 3.4 and is not significantly low. I obtained a chest x-ray and on my interpretation it shows no acute cardiopulmonary process and the radiologist does agree. I did a CT of the abdomen pelvis due to the patient's cramping abdominal pain and diarrhea and this shows concern for enterocolitis. Given the patient has Covid this is likely the cause. Patient given Zofran for home and counseled to hydrate well. He currently does not have any respiratory complaints but she is to monitor her pulse ox. Patient given return precautions. Impression: 1. COVID-19 2. Nausea/vomiting/headache 3. Abdominal pain 4. Diarrhea Lab Data Attestation: I reviewed the patient's lab results. Labs: Laboratory Results - last 24 hr 04/28/21 04/28/21 04/28/21 11:35 11:35 11:35 WBC 4.2 L RBC 5.34 Hgb 15.5 H Hct 48.4 H MCV 90.6 MCH 29.0 MCHC 32.0 RDW Std Deviation 55.0 H RDW Coeff of Raquel 17.0 H Plt Count 228 MPV 10.2 Immature Gran % (Auto) 0.200 Neut % (Auto) 64.4 Lymph % (Auto) 23.9 [place] % (Auto) 9.8 Eos % (Auto) 0.5 Baso % (Auto) 1.2 H Absolute Neuts (auto) 2.7 Absolute Lymphs (auto) 1.00 Nucleated RBC % 0 Sodium 138 Potassium 3.4 L Chloride 110 H Carbon Dioxide 21.0 Anion Gap 7 BUN 6 L Creatinine 0.78 Estim Creat Clear Calc 101.20 Est GFR (MDRD) Af Amer 105 Est GFR (MDRD) Non-Af 87 BUN/Creatinine Ratio 7.7 L Glucose 96 Calcium 8.6 Magnesium 2.2 Total Bilirubin 0.30 Direct Bilirubin 0.05 AST 45 H ALT 64 H Alkaline Phosphatase 183 H Troponin I High Sens 6 Total Protein 6.9 Albumin 2.9 L Globulin 4.0 Lipase 104 Radiography Diagnostic Testing: Clinical Impression(s) from Imaging Studies Chest X-Ray 04/28/21 11:02 IMPRESSION: Minimal atelectasis or scarring in the left lower lung. Electronically Signed: Roe Nicole, at 12:52 EST Tel , Service support , Abdomen/Pelvis CT 04/28/21 11:15 IMPRESSION: Thickening of the colon and nonspecific fluid-filled small bowel loops concerning for enterocolitis. Electronically Signed: Roe Nicole at 12:51 EST Tel , Service support , Discharge Plan Triage Chief Complaint: Headache ED Provider: Nadir Yap Dx/Rx/DC Orders Instructions: Coronavirus Disease 2019 (COVID-19): Caring for Yourself or Others Prescriptions: New ondansetron HCl [Zofran] 4 mg tablet 4 mg PO Q8H PRN (Reason: nausea and vomiting) Qty: 20 RF: 0 No Action medroxyprogesterone 150 MG/ML syringe 150 mg IM .[id number] RF: 0 gabapentin 300 MG capsule 300 mg PO BID RF: 0 nortriptyline [Pamelor] 50 MG capsule 100 mg PO QHS RF: 0 trazodone 100 MG tablet 200 mg PO QHS RF: 0 topiramate 25 tablet 25 mg PO DAILY RF: 0 duloxetine [Cymbalta] 30 MG capsule 120 mg PO DAILY RF: 0 propranolol 20 MG tablet 20 mg PO QHS RF: 0 temazepam 15 mg capsule 15 mg PO QHS RF: 0 hydroxyzine HCl 100 mg Tablet 100 mg PO QHS RF: 0 lamotrigine 100 mg tablet 100 mg PO DAILY RF: 0 omeprazole 40 MG capsule,delayed release(DR/EC) 40 mg PO DAILY RF: 0 hydrocodone-acetaminophen 5-325 mg tablet 1 tab PO Q6H PRN (Reason: pain) 7 Days Qty: 20 RF: 0 potassium citrate 10 mEq (1,080 mg) Tablet Extended Release 20 meq PO TID Qty: 180 RF: 0 ondansetron HCl [Zofran] 4 mg tablet 4 mg PO Q6H PRN (Reason: nausea and vomiting) Qty: 20 RF: 0 hydrocodone-acetaminophen 5-325 mg tablet 1 tab PO Q6H PRN (Reason: pain) 3 Days Qty: 10 RF: 0 ondansetron 4 mg tablet,disintegrating 4 mg PO Q8H PRN (Reason: nausea and vomiting) Qty: 10 RF: 0 Primary Care Provider: Tom Giraldo Referrals: Tom Giraldo MD [Primary Care Provider] - Disposition Disposition: Home, Self Care Discharge Date/Time: 04/28/21 13:21
[2021-04-28 12:00] VITALS: BP 126/92; PULSE 88; RESP 15; O2SAT 99
[2021-04-28 12:02] LABS: AST(SGOT) 45 U/L (15-37); Alanine Aminotransfer ALT/SGPT 64 U/L (13-56); Albumin, Serum 2.9 g/dL (3.2-5.0); Alkaline Phosphatase 183 U/L (45-117); Bilirubin, Direct 0.05 mg/dL (0.00-0.30); Protein, Total 6.9 g/dL (6.4-8.2)
[2021-04-28 12:06] LABS: Anion Gap 7 (5-15); BUN 6 mg/dL (7-18); BUN/Creat Ratio 7.7 RATIO (10-20); Calcium,Total 8.6 mg/dL (8.5-10.1); Chloride 110 mmol/L (98-107); Creatinine, Serum 0.78 mg/dL (0.55-1.02); EST Glomerular Filtration Rate 87 mL/min (>60); Est Glom Filt Rate - Afr Amer 105 mL/min (>60); Glucose 96 mg/dL (74-106); Lipase 104 U/L (73-393); Magnesium 2.2 mg/dL (1.6-2.6); Potassium 3.4 mmol/L (3.5-5.1); Sodium Level 138 mmol/L (136-145); Troponin-I HS 6 pg/mL (3.0-54.0)
[2021-04-28 13:20] VITALS: BP 118/88; PULSE 88; RESP 22; O2SAT 97
== END 2021-04-28 13:21 | disposition home or self-care (01) ==
PROVIDERS: Emergency Provider Student in an Organized Health Care Education/Training Program; PCP Family Medicine
DX: U07.1 COVID-19 (principal); R11.2 Nausea with vomiting, unspecified; R51.9 Headache, unspecified; R19.7 Diarrhea, unspecified; R10.13 Epigastric pain; F31.9 Bipolar disorder, unspecified; F41.9 Anxiety disorder, unspecified; E78.5 Hyperlipidemia, unspecified; I10 Essential (primary) hypertension; K21.9 Gastro-esophageal reflux disease without esophagitis; K58.9 Irritable bowel syndrome, unspecified; K44.9 Diaphragmatic hernia without obstruction or gangrene; M19.90 Unspecified osteoarthritis, unspecified site; G47.00 Insomnia, unspecified; G89.29 Other chronic pain; F17.210 Nicotine dependence, cigarettes, uncomplicated; Z79.3 Long term (current) use of hormonal contraceptives; Z79.82 Long term (current) use of aspirin; Z79.899 Other long term (current) drug therapy
CPT/HCPCS: 71045; 74177; 80048; 80076; 83690; 83735; 84484; 85025; 87426; 93005; 96361; 96374; 96375; 99284; J7030; Q9967

== ENCOUNTER → 2021-05-16 15:50 | Outpatient (CLI) | payer MEDICAID, SELFPAY ==
[2021-05-16 17:57] LABS: Anion Gap 7 (5-15); BUN 10 mg/dL (7-18); BUN/Creat Ratio 10.2 RATIO (10-20); Chloride 107 mmol/L (98-107); Cholesterol 122 mg/dL (200); Creatinine, Serum 0.98 mg/dL (0.55-1.02); EST Glomerular Filtration Rate 67 mL/min (>60); Est Glom Filt Rate - Afr Amer 81 mL/min (>60); Glucose 101 mg/dL (74-106); High Density Lipoprotein 27 mg/dL; Potassium 3.8 mmol/L (3.5-5.1); Sodium Level 140 mmol/L (136-145); Triglycerides 158 mg/dL; Very Low Density Lipoprotein 32 mg/dL (5-40)
== END ==
PROVIDERS: PCP Family Medicine; Visit Provider Family Medicine
DX: E78.5 Hyperlipidemia, unspecified (principal)
CPT/HCPCS: 36415; 80048; 80061

== ENCOUNTER 2021-06-28 09:00 | Outpatient (CLI) | payer MEDICAID, SELFPAY ==
--- NOTE | 2021-06-28 09:03 | RAD_ITS ---
STUDY: X-RAY CHEST REASON FOR EXAM: Female, 41 years old. Chest pain. TECHNIQUE: PA and lateral views of the chest. COMPARISON: 04/28/2021. FINDINGS: The lungs are well-expanded. Question minimal linear atelectasis at the lung bases. There is no acute infiltrate or mass There is no demonstrated pleural abnormality. Normal size heart. Normal mediastinum and sebastián. Normal visualized pulmonary arteries. Normal visualized aortic arch and descending thoracic aorta. Normal visualized thoracic spine. Normal visualized ribs, clavicles, and shoulders. There is no demonstrated abnormality of the visualized soft tissue structures of the upper abdomen. RAD/Chest PA and Lateral IMPRESSION: Minimal bibasilar atelectasis. Electronically Signed: Keny Barney DO at 23:57 EST ,
[2021-06-28 10:04] LABS: Absolute Lymphocyte Count 1.46 X10^3/uL (0.83-4.51); Absolute Neutrophil Count 8.3 X10^3/uL (2.0-7.7); Basophil# 0.09 X10^3/uL; Basophil% 0.8 % (0-1); Eosinophil# 0.06 X10^3/uL; Eosinophils% 0.6 % (0-5); Hematocrit 39.7 % (37-47); Hemoglobin 13.4 g/dL (12.0-15.0); Lymphocyte # 1.46 X10^3/ul (0.83-4.51); Lymphocyte % 13.4 % (19-41); Mean Corp Hgb Conc 33.8 g/dL (32-36); Mean Corpuscular Hgb 32.5 pg (27.0-32.0); Mean Corpuscular Volume 96.4 fL (81-99); Mean Platelet Vol. 10.1 fl (6.2-12.0); Monocyte# 0.87 X10^3/uL; NRBC Flagged by Analyzer 0 % (0-5); Neutrophil % 76.5 % (47-70); POSITIVE MORPHOLOGY YES; Platelet Count 308 K/mm3 (150-450); RBC Distribution Width CV 18.5 % (11.6-14.6); RBC Distribution Width SD 65.7 fl (35.1-43.9); Red Blood Count 4.12 M/mm3 (4.2-5.4); White Blood Count 10.9 K/mm3 (4.4-11.0)
[2021-06-28 10:06] LABS: Differential Indicated SCAN CRITERIA MET
[2021-06-28 10:19] LABS: D-Dimer Quantitative (DVT/PE) 1.15 FEU/ug/m (0.27-0.49)
[2021-06-28 10:35] LABS: Anisocytosis 1+
[2021-06-28 17:31] LABS: Absolute Lymphocyte Count 2.63 X10^3/uL (0.83-4.51); Absolute Neutrophil Count 7.2 X10^3/uL (2.0-7.7); Basophil% 0.9 % (0-1); Eosinophils% 1.9 % (0-5); Hematocrit 44.3 % (37-47); Hemoglobin 14.7 g/dL (12.0-15.0); Lymphocyte # 2.63 X10^3/ul (0.83-4.51); Lymphocyte % 24.4 % (19-41); Mean Corp Hgb Conc 33.2 g/dL (32-36); Mean Corpuscular Volume 84.4 fL (81-99); Mean Platelet Vol. 12.8 fl (6.2-12.0); Monocyte# 0.61 X10^3/uL; Monocyte% 5.7 % (0-10); NRBC Flagged by Analyzer 0 % (0-5); Neutrophil # 7.21 X10^3/uL (2.7-7.7); Neutrophil % 66.8 % (47-70); Platelet Count 177 K/mm3 (150-450); RBC Distribution Width CV 13.7 % (11.6-14.6); RBC Distribution Width SD 42.5 fl (35.1-43.9); Red Blood Count 5.25 M/mm3 (4.2-5.4); White Blood Count 10.8 K/mm3 (4.4-11.0)
[2021-06-28 18:10] LABS: ALB/GLOB Ratio 1.1 RATIO (0.9-2.4); AST(SGOT) 39 U/L (15-37); Alanine Aminotransfer ALT/SGPT 78 U/L (13-56); Albumin, Serum 4.2 g/dL (3.2-5.0); Alkaline Phosphatase 68 U/L (45-117); Anion Gap 8 (5-15); BUN 15 mg/dL (7-18); BUN/Creat Ratio 25.3 RATIO (10-20); Calcium,Total 9.3 mg/dL (8.5-10.1); Chloride 104 mmol/L (98-107); Creatinine, Serum 0.59 mg/dL (0.55-1.02); EST Glomerular Filtration Rate 119 mL/min (>60); Est Glom Filt Rate - Afr Amer 145 mL/min (>60); Globulin 3.7 g/dL (2.2-4.2); Glucose 127 mg/dL (74-106); Potassium 4.3 mmol/L (3.5-5.1); Protein, Total 7.9 g/dL (6.4-8.2); Sodium Level 138 mmol/L (136-145)
[2021-06-30 10:07] LABS: HEPATITIS B SURFACE AG Negative (Negative); Hepatitis A IgM Antibody Negative (Negative); Hepatitis B Core AB IgM Negative (Negative)
[2021-06-30 10:49] LABS: Hep C Antibodies <0.1 s/co ratio (0.0-0.9); Hepatitis A AB, Total Negative (Negative)
[2021-07-01 09:57] LABS: Hepatitis B Surface Antibody Non-Reactive
== END 2021-06-28 23:59 | disposition home or self-care (01) ==
LOC: MTLAB 09:01
PROVIDERS: PCP Family Medicine; Referring Provider Family Medicine; Visit Provider Family Medicine
DX: Z00.00 Encounter for general adult medical examination without abnormal findings (principal)
CPT/HCPCS: 80048; 85025; 86706; 71046; 80074; 36415; 85379; 80053; 86708

== ENCOUNTER 2021-06-28 12:25 | Outpatient (CLI) | payer MEDICAID, SELFPAY ==
--- NOTE | 2021-06-28 12:28 | CT_ITS ---
STUDY: CTA CHEST REASON FOR EXAM: Female, 41 years old. 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 Chest pain. RADIATION DOSAGE (If Supplied By Facility): CTDIvol = ( 9.84 ) mGy, DLP = ( 32.43 ) mGycm TECHNIQUE: The examination was performed with the intravenous administration of IV 100mL Isovue-370. Post-processing of the angiographic images was performed, with multiplanar reformation and 3D reconstruction. Individualized dose optimization techniques were used for this CT. COMPARISON: Comparison is made with prior examination of 12/01/2019. FINDINGS: Stable small benign-appearing bilateral axillary lymph nodes. Normal enhancement of the main pulmonary artery and right and left pulmonary arteries. Normal enhancement of the bilateral peripheral pulmonary arteries. There is no demonstrated pulmonary embolism. Normal thoracic aorta and visualized great vessels. There is no demonstrated aortic dissection. Normal heart and pericardium. Normal mediastinum. Normal hilar regions. Normal visualized trachea and bronchi. The lungs are well expanded. Patchy bibasilar pulmonary infiltrates in the preferential peripheral distribution. No pneumonitis associated with Covid should be ruled out. Normal pleura. Normal chest wall structures. Normal osseous structures. Normal visualized upper abdomen. CT/CTA Chest W/WO Contrast IMPRESSION: Patchy bibasilar infiltrates and a preferential peripheral distribution. No pneumonitis associated with Covid should be ruled out. Electronically Signed: Francisco Lopez MD at 13:39 EST ,
== END 2021-06-28 23:59 | disposition home or self-care (01) ==
PROVIDERS: PCP Family Medicine; Referring Provider Family Medicine; Visit Provider Family Medicine
DX: R07.9 Chest pain, unspecified (principal); Z09 Encounter for follow-up examination after completed treatment for conditions other than malignant neoplasm
CPT/HCPCS: 36415; 71046; 71275; 80053; 80074; 85025; 85379; 86706; 86708; Q9967

== ENCOUNTER 2021-07-25 12:12 | Outpatient (CLI) | payer MEDICAID, SELFPAY ==
[2021-07-25 15:43] LABS: Anion Gap 6 (5-15); BUN 14 mg/dL (7-18); BUN/Creat Ratio 15.9 RATIO (10-20); Calcium,Total 9.1 mg/dL (8.5-10.1); Chloride 106 mmol/L (98-107); Creatinine, Serum 0.88 mg/dL (0.55-1.02); EST Glomerular Filtration Rate 76 mL/min (>60); Est Glom Filt Rate - Afr Amer 91 mL/min (>60); Glucose 93 mg/dL (74-106); Potassium 3.9 mmol/L (3.5-5.1); Sodium Level 138 mmol/L (136-145)
== END 2021-07-25 23:59 | disposition home or self-care (01) ==
LOC: MFPLAB 12:15
PROVIDERS: PCP Family Medicine; Referring Provider Family Medicine; Visit Provider Family Medicine
DX: E87.6 Hypokalemia (principal)
CPT/HCPCS: 36415; 80048

== ENCOUNTER 2021-07-26 18:01 | Emergency (ER) | payer MEDICAID, SELFPAY ==
[2021-07-26 18:02] VITALS: BP 116/64; PULSE 83; PULSE 89; RESP 16; TEMP 36.9; O2SAT 97; O2SAT 99; BMI 24.0
--- NOTE | 2021-07-26 19:18 | EDS_ITS ---
HPI HPI - GI History of Present Illness Chief Complaint: Abd Pain Informant: patient Abdominal Pain/Flank Pain Onset: Days (3-4) Context: Sudden Onset Timing: Continuous Quality: Stabbing Location: Epigastric, RLQ and LLQ Worsened by: Food Relieved by: Nothing Nausea/Vomiting/Emesis GI Symptom: Positive for Nausea; Negative for Vomiting Diarrhea/Melena/Hematochezia GI Symptom: Positive for Diarrhea Stool Quality: Positive for BRB per rectum (2 episodes 2 days ago but has resolved) Narrative Narrative: Patient presents with abdominal pain that has been constant for the past 3 to 4 days. Patient states it began rather suddenly. Patient states it is over the lower abdomen. Patient states that sometimes radiates up into the epigastric area. Patient describes her pain as stabbing. Patient states that every time she eats anything she has profuse diarrhea. Patient states that 2 days ago she had a couple episodes of hematochezia but this had resolved. Patient admits to nausea but denies any vomiting. Patient denies any dysuria or hematuria. Patient denies any radiation of the pain to her chest or back. Patient also states that she has an abscess in her left lower abdomen/inguinal area. Patient states her primary care physician placed her on antibiotics but told her that it would need to be opened and drained. [facility] Medical History Abdominal pain Abdominal pain Anxiety Arthritis Back pain Bipolar disorder Blackout Chest pain Chronic pain Depression Diarrhea DVT (deep venous thrombosis) Fibromyalgia Gastric reflux GERD (gastroesophageal reflux disease) Hiatal hernia High cholesterol History of edema History of IBS History of steroid therapy History of stress test HLD (hyperlipidemia) HTN (hypertension) IBS (irritable bowel syndrome) Ileus Injury of back Insomnia Kidney stones Kidney stones Major depressive disorder, recurrent, unspecified Migraine Opioid use disorder panic Personality disorder, unspecified Shortness of breath on exertion Smoker Ureteral calculus, right UTI (urinary tract infection) Vomiting Walker as ambulation aid Wears dentures Home Medications medroxyprogesterone 150 mg IM .[id number] 03/09/15 [History Last Taken 04/05/21] gabapentin 300 mg PO BID 08/09/16 [History Last Taken 04/05/21] nortriptyline [Pamelor] 100 mg PO QHS 10/13/17 [History Last Taken 04/05/21] trazodone 200 mg PO QHS 11/12/18 [History Last Taken 04/04/21] topiramate 25 mg PO DAILY 11/24/18 [History Last Taken 04/05/21] duloxetine [Cymbalta] 120 mg PO DAILY 06/02/19 [History Last Taken 12/01/19] propranolol 20 mg PO QHS 05/03/20 [History Last Taken 04/05/21] hydroxyzine HCl 100 mg PO QHS 11/27/20 [History Last Taken 04/05/21] lamotrigine 100 mg PO DAILY 11/27/20 [History Last Taken Unknown] temazepam 15 mg PO QHS 11/27/20 [History Last Taken Unknown] hydrocodone-acetaminophen 1 tab PO Q6H PRN 7 Days #20 tab 04/06/21 [Rx Last Taken Unknown] omeprazole 40 mg PO DAILY 04/06/21 [History Last Taken 04/05/21] ondansetron HCl [Zofran] 4 mg PO Q6H PRN #20 tab 04/06/21 [Rx Last Taken Unknown] potassium citrate 20 meq PO TID #180 tab 04/06/21 [Rx Last Taken Unknown] hydrocodone-acetaminophen 1 tab PO Q6H PRN 3 Days #10 tab 04/15/21 [Rx Last Taken Unknown] ondansetron 4 mg PO Q8H PRN #10 tab 04/15/21 [Rx Last Taken Unknown] ondansetron HCl [Zofran] 4 mg PO Q8H PRN #20 tab 04/28/21 [Rx Last Taken Unknown] Allergy/AdvReac Type Severity Reaction Status Date / Time aspirin AdvReac Nausea Verified 04/28/21 10:27 Family History Father Hypertension Heart disease Brother CAD (coronary artery disease) Myocardial infarction Mother Heart disease Myocardial infarction Surgical History History of cholecystectomy History of esophagogastroduodenoscopy (EGD) History of repair of hiatal hernia S/P laparoscopic cholecystectomy Social History household members: children Smoking Status: Current every day smoker tobacco type: cigarettes alcohol intake: never substance use type: does not use ROS ROS ED Constitutional Constitutional ED: Denies chills or fever(s) Eyes Eyes: Denies blurry vision or change in vision ENT ENT ED: Denies rhinorrhea or sore throat Cardiovascular Cardiovascular: Denies chest pain or palpitations Respiratory/Chest Respiratory/Chest: Denies cough or dyspnea Gastrointestinal Gastrointestinal: Denies nausea or vomiting Genitourinary Genitourinary ED: Denies dysuria or hematuria Musculoskeletal Musculoskeletal: Reports back pain; Denies neck pain Integumentary Reports abscess; Denies rash Neurologic Neurologic: Denies headache(s) or weakness Allergic/Immunologic Allergic/Immunologic ED: Denies mouth swelling or urticaria EXAM Physical Exam Const Vital Signs: 07/26/21 18:02 07/26/21 20:38 Temperature 98.5 F Temperature Source Temporal Pulse Rate 83 79 Respiratory Rate 16 Blood Pressure 116/64 103/71 Blood Pressure Mean 81 81 Pulse Ox 99 Oxygen Delivery Method Room Air Positive well nourished and well developed General Appearance ED: well developed and NAD HEENT Reports moist mucous membranes Neck supple and no JVD Resp normal respiratory effort and clear to auscultation bilaterally Cardio regular rate and regular rhythm GI Auscultation: normoactive bowel sounds Palpation: soft and tender epigastric, LLQ, RLQ and periumbilical; Negative for guarding or rebound tenderness present Neuro CN's II-XII intact bilaterally, moves all extremities and no sensory deficits noted Sensorium / Orientation: alert, oriented to person, oriented to place and oriented to time Motor Exam: strength 5/5 throughout Psych mental status grossly normal Skin Skin Narrative: There is a tender erythematous area over the left lower abdomen/inguinal area. There is minimal fluctuance. There is no discharge or drainage. MDM MDM MDM Narrative Medical decision making narrative: Patient was given IV fluids, morphine, and Zofran. CBC was within normal limits. Comprehensive metabolic profile was essentially within normal limits. Lipase was normal. Urinalysis does not show any evidence of urinary tract infection. CT scan of the abdomen pelvis was obtained. There is mild to moderate intrahepatic biliary ductal dilatation and a hypodensity of the liver. There is no extrahepatic ductal dilatation. There is no evidence of cirrhosis. I discussed the case with the radiologist. Since the patient's liver function tests are normal, patient may follow-up as an outpatient for further evaluation of the density in his liver and intrahepatic ductal dilatation. CT scan was interpreted by the radiologist and reviewed by myself. Patient was given a repeat dose of morphine. Patient was also given a dose of Ativan prior to incision and drainage. Informed consent was obtained from the patient. She is agreeable to have the abscess opened and drained. She was given the opportunity ask questions. She had no further questions. The abscess area was cleaned and prepped in a sterile manner. 1% lidocaine was infiltrated locally. An 11 blade scalpel was used to make a small incision. Moderate amount of purulent drainage was expressed. The wound was packed with iodoform gauze dressing. A small wick was left in place. Patient tolerated procedure well. Patient was instructed to continue her antibiotics as prescribed. Patient was instructed to follow-up with her doctor in 3 to 5 days for further evaluation. Patient understood and was agreeable with the plan. All questions were answered. Lab Data Attestation: I reviewed the patient's lab results. Labs: Laboratory Results - last 24 hr 07/26/21 07/26/21 07/26/21 19:30 19:40 19:40 WBC 8.4 RBC 4.18 L Hgb 13.2 Hct 40.6 MCV 97.1 MCH 31.6 MCHC 32.5 RDW Std Deviation 54.8 H RDW Coeff of Raquel 15.5 H Plt Count 330 MPV 9.9 Immature Gran % (Auto) 0.400 Neut % (Auto) 60.1 Lymph % (Auto) 29.0 [place] % (Auto) 7.3 Eos % (Auto) 1.8 Baso % (Auto) 1.4 H Absolute Neuts (auto) 5.1 Absolute Lymphs (auto) 2.43 Nucleated RBC % 0 Sodium 141 Potassium 3.6 Chloride 112 H Carbon Dioxide 24.0 Anion Gap 5 BUN 14 Creatinine 0.87 Estim Creat Clear Calc 92.95 Est GFR (MDRD) Af Amer 92 Est GFR (MDRD) Non-Af 76 BUN/Creatinine Ratio 16.0 Glucose 68 L Calcium 9.1 Total Bilirubin 0.30 AST 19 ALT 40 Alkaline Phosphatase 130 H Total Protein 7.4 Albumin 3.7 Globulin 3.7 Albumin/Globulin Ratio 1.0 Lipase 168 Urine Color Yellow Urine Clarity Clear Urine pH 6.0 Ur Specific [place] 1.020 Urine Protein 15 H Urine Glucose (UA) Normal Urine Ketones 5 H Urine Occult Blood 10 H Urine Nitrite Negative Urine Bilirubin 1 H Urine Urobilinogen Normal Ur Leukocyte Esterase 25 H Urine RBC 0 SEEN Urine WBC 0-5 SEEN Ur Squamous Epith Cells 0-5 SEEN Calcium Oxalate Crystal 1+ Urine Bacteria 0 SEEN Urine Mucus 0 SEEN Radiography Diagnostic Testing: Clinical Impression(s) from Imaging Studies Abdomen/Pelvis CT 07/26/21 19:23 IMPRESSION: Mild to moderate intrahepatic biliary ductal dilation and segment 4 liver masslike area of decreased density. Correlation with laboratory values to assess for obstructive biliary pattern is recommended. Nonemergent MRCP and liver MRI is recommended for correlation. No evidence of cirrhosis. No extrahepatic biliary ductal dilation. The bladder is surgically absent or collapsed. 18 mm subcutaneous soft tissue density appears to originate from the skin. Please correlate clinically for lesion left lower quadrant anterior abdomen. Infectious lesions suspected. Mild prominence air-filled descending transverse and descending colon with collapsed sigmoid colon. No obstructing mass. This is likely within normal limits. Electronically Signed: Jose J Cabezas DO at 22:15 EST , ADDENDUM: 07/26/21 2225 IMPRESSION: Mild to moderate intrahepatic biliary ductal dilation and segment 4 liver masslike area of decreased density. Correlation with laboratory values to assess for obstructive biliary pattern is recommended. Nonemergent MRCP and liver MRI is recommended for correlation. No evidence of cirrhosis. No extrahepatic biliary ductal dilation. The bladder is surgically absent or collapsed. 18 mm subcutaneous soft tissue density appears to originate from the skin. Please correlate clinically for lesion left lower quadrant anterior abdomen. Infectious lesions suspected. Mild prominence air-filled descending transverse and descending colon with collapsed sigmoid colon. No obstructing mass. This is likely within normal limits. N.B. : The above Results were Read Back by Jose J Cabezas DO to Sigifredo Ocasio DO, and understanding confirmed on 07/26/2021 22:18:30 (ET). Electronically Signed: Jose J Cabezas DO at 22:15 EST , Procedures Other Procedures Procedure(s): Incision and drainage. The area was cleaned and prepped in a sterile manner. The area was infiltrated with 1% lidocaine locally. A #11 blade scalpel was used to make a small incision. A moderate amount of purulent drainage was expressed. Patient tolerated procedure well. The wound was packed with iodoform gauze dressing. A small wick was left in place. Discharge Plan Triage Chief Complaint: Abd Pain ED Provider: Sigifredo Ocasio Dx/Rx/DC Orders Clinical Impression: Abdominal pain in female, Abdominal wall abscess Instructions: ED Abdominal Pain Unkn Cause Fem, ED Abscess Incision And Drainage Prescriptions: No Action medroxyprogesterone 150 MG/ML syringe 150 mg IM .[id number] RF: 0 gabapentin 300 MG capsule 300 mg PO BID RF: 0 nortriptyline [Pamelor] 50 MG capsule 100 mg PO QHS RF: 0 trazodone 100 MG tablet 200 mg PO QHS RF: 0 topiramate 25 tablet 25 mg PO DAILY RF: 0 duloxetine [Cymbalta] 30 MG capsule 120 mg PO DAILY RF: 0 propranolol 20 MG tablet 20 mg PO QHS RF: 0 temazepam 15 mg capsule 15 mg PO QHS RF: 0 hydroxyzine HCl 100 mg Tablet 100 mg PO QHS RF: 0 lamotrigine 100 mg tablet 100 mg PO DAILY RF: 0 omeprazole 40 MG capsule,delayed release(DR/EC) 40 mg PO DAILY RF: 0 hydrocodone-acetaminophen 5-325 mg tablet 1 tab PO Q6H PRN (Reason: pain) 7 Days Qty: 20 RF: 0 potassium citrate 10 mEq (1,080 mg) Tablet Extended Release 20 meq PO TID Qty: 180 RF: 0 ondansetron HCl [Zofran] 4 mg tablet 4 mg PO Q6H PRN (Reason: nausea and vomiting) Qty: 20 RF: 0 hydrocodone-acetaminophen 5-325 mg tablet 1 tab PO Q6H PRN (Reason: pain) 3 Days Qty: 10 RF: 0 ondansetron 4 mg tablet,disintegrating 4 mg PO Q8H PRN (Reason: nausea and vomiting) Qty: 10 RF: 0 ondansetron HCl [Zofran] 4 mg tablet 4 mg PO Q8H PRN (Reason: nausea and vomiting) Qty: 20 RF: 0 Primary Care Provider: Tom Giraldo Referrals: Tom Giraldo MD [Primary Care Provider] - 3-5 Days Disposition Disposition: Home, Self Care
--- NOTE | 2021-07-26 19:23 | CT_ITS ---
We are attempting to reach an attending provider to discuss findings. An addendum with communication details will be sent when the communication is complete. INDICATION: Abdominal pain -- IV PO Contrast EXAMINATION: CT ABDOMEN AND PELVIS WITH CONTRAST - CT Abdomen And Pelvis W/ Contrast Injection TECHNIQUE: Helically acquired images were obtained of the abdomen and pelvis following IV contrast. A radiation dose optimization technique was used for this scan. IV Contrast dosage and agent: 100 mL of [id number]. Oral contrast: Dilute GASTROGRAFIN. COMPARISON: CT chest 06/28/[address] abdomen and pelvis 04/28/2021. FINDINGS: LOWER CHEST: Bibasilar dependent atelectasis. No cardiomegaly or pericardial effusion. LIVER: 15 mm diameter, masslike area of decreased density segment 4 of the liver. GALLBLADDER AND BILIARY TREE: Gallbladder is collapsed or surgically absent no gallbladder fossa fluid. There is mild intrahepatic biliary ductal dilation that is new compared to the prior exam. Common bile duct is normal in appearance. PANCREAS: No focal cystic or solid mass. SPLEEN: Normal size without focal cystic or solid mass. ADRENAL GLANDS: No nodules. KIDNEYS, URETERS and BLADDER: Normal renal size and position. No mass. No hydronephrosis. Bladder is unremarkable. PERITONEUM: No ascites or free air. No other fluid collection. BOWEL: No evidence of acute appendicitis. No abnormally distended bowel loops or air fluid levels. No wall thickening or mass. No focal inflammatory changes. Multiple prominent air-filled descending, transverse and descending colon with collapsed sigmoid colon. No mass lesion. LYMPH NODES: No enlarged mesenteric or retroperitoneal lymph nodes. VESSELS: Aorta is non-dilated. REPRODUCTIVE ORGANS: No abnormality. ABDOMINAL WALL: Left lower quadrant palpable wall area of skin thickening and underlying hypodensity suggesting possible skin infection. This measures 18 mm in maximum diameter. Direct visualization recommended. BONES: No lytic or blastic abnormality. CT/Abdomen/Pelvis WITH Contrast IMPRESSION: Mild to moderate intrahepatic biliary ductal dilation and segment 4 liver masslike area of decreased density. Correlation with laboratory values to assess for obstructive biliary pattern is recommended. Nonemergent MRCP and liver MRI is recommended for correlation. No evidence of cirrhosis. No extrahepatic biliary ductal dilation. The bladder is surgically absent or collapsed. 18 mm subcutaneous soft tissue density appears to originate from the skin. Please correlate clinically for lesion left lower quadrant anterior abdomen. Infectious lesions suspected. Mild prominence air-filled descending transverse and descending colon with collapsed sigmoid colon. No obstructing mass. This is likely within normal limits. Electronically Signed: Jose J Cabezas DO at 22:15 EST ,
[2021-07-26] MEDS: Morphine 4 MG/ML Syringe IV ×2 (19:38→22:33)
[2021-07-26] MEDS: Ondansetron 4 MG/2 ML Vial IV (19:38)
[2021-07-26] MEDS: 0.9% Normal Saline 1,000 ML 1000 ML IV (19:39)
[2021-07-26 19:58] LABS: Bacteria 0 SEEN /hpf (None Seen); Mucous, Urine 0 SEEN /hpf (<or=2+); Red Blood Cells-Urine 0 SEEN /hpf (0-5)
[2021-07-26 19:59] LABS: Color, Urine Yellow (Yellow); Glucose, Dipstick Normal (Normal); Ketone-Dipstick 5 mg/dl (Negative); Leukocyte Esterase-Dipstick 25 /ul (Negative); Nitrite-Dipstick Negative (Negative); Occult Blood-Urine 10 /ul (Negative); Protein-Dipstick 15 mg/dl (Negative); Urine Clarity Clear (Clear); Urine Urobilinogen Normal (Normal)
[2021-07-26 20:01] LABS: Absolute Lymphocyte Count 2.43 X10^3/uL (0.83-4.51); Absolute Neutrophil Count 5.1 X10^3/uL (2.0-7.7); Basophil# 0.12 X10^3/uL; Basophil% 1.4 % (0-1); Eosinophil# 0.15 X10^3/uL; Eosinophils% 1.8 % (0-5); Hematocrit 40.6 % (37-47); Hemoglobin 13.2 g/dL (12.0-15.0); Lymphocyte # 2.43 X10^3/ul (0.83-4.51); Mean Corp Hgb Conc 32.5 g/dL (32-36); Mean Corpuscular Hgb 31.6 pg (27.0-32.0); Mean Corpuscular Volume 97.1 fL (81-99); Mean Platelet Vol. 9.9 fl (6.2-12.0); Monocyte# 0.61 X10^3/uL; Monocyte% 7.3 % (0-10); NRBC Flagged by Analyzer 0 % (0-5); Neutrophil # 5.05 X10^3/uL (2.7-7.7); Neutrophil % 60.1 % (47-70); Platelet Count 330 K/mm3 (150-450); RBC Distribution Width CV 15.5 % (11.6-14.6); RBC Distribution Width SD 54.8 fl (35.1-43.9); Red Blood Count 4.18 M/mm3 (4.2-5.4); White Blood Count 8.4 K/mm3 (4.4-11.0)
[2021-07-26 20:01] LABS: Urine Bilirubin Dipstick 1 mg/dL (Negative)
[2021-07-26 20:12] LABS: Calcium Oxalate Crystals Ur 1+ /hpf (<or=2+); Squamous Epithelial Cells - UA 0-5 SEEN /hpf (5-10); White Blood Cells 0-5 SEEN /hpf (0-5)
[2021-07-26 20:22] LABS: AST(SGOT) 19 U/L (15-37); Alanine Aminotransfer ALT/SGPT 40 U/L (13-56); Albumin, Serum 3.7 g/dL (3.2-5.0); Alkaline Phosphatase 130 U/L (45-117); Anion Gap 5 (5-15); BUN 14 mg/dL (7-18); Calcium,Total 9.1 mg/dL (8.5-10.1); Chloride 112 mmol/L (98-107); Creatinine, Serum 0.87 mg/dL (0.55-1.02); EST Glomerular Filtration Rate 76 mL/min (>60); Est Glom Filt Rate - Afr Amer 92 mL/min (>60); Estimated Creatinine Clearance 92.95 ml/min; Globulin 3.7 g/dL (2.2-4.2); Glucose 68 mg/dL (74-106); Lipase 168 U/L (73-393); Potassium 3.6 mmol/L (3.5-5.1); Protein, Total 7.4 g/dL (6.4-8.2); Sodium Level 141 mmol/L (136-145)
[2021-07-26 20:38] VITALS: BP 103/71; PULSE 79
[2021-07-26] MEDS: LORazepam 0.5 MG Tablet PO (22:32)
[2021-07-26] MEDS: Lidocaine 1% (20 ml mdv) 20 ML Vial INFILT (22:32)
[2021-07-26 23:16] VITALS: BP 121/74; PULSE 75; RESP 15; O2SAT 99
== END 2021-07-26 23:17 | disposition home or self-care (01) ==
PROVIDERS: Emergency Provider Emergency Medicine; PCP Family Medicine; Visit Provider Emergency Medicine
DX: L02.211 Cutaneous abscess of abdominal wall (principal); K76.89 Other specified diseases of liver; K83.8 Other specified diseases of biliary tract; I10 Essential (primary) hypertension; E78.00 Pure hypercholesterolemia, unspecified; Z79.899 Other long term (current) drug therapy
CPT/HCPCS: 10061; 74177; 80053; 81001; 83690; 85025; 96361; 96374; 96375; 96376; 99282; J7030; Q9967; A4216; J2405

== ENCOUNTER 2021-07-29 17:28 | Emergency (ER) | payer MEDICAID, SELFPAY ==
[2021-07-29 17:29] VITALS: BP 112/60; PULSE 81; RESP 17; TEMP 36.4; O2SAT 96; BMI 24.7
--- NOTE | 2021-07-29 18:59 | ED.RN ---
THIS RN IN ROOM WITH DR ZUÑIGA. WHEN ASKED WHY PT IS HERE PT BEGINS TALKING ABOUT CHRONIC ABDOMINAL PAIN, NOT MENTIONING BACK. PT FINALLY DOES GET AROUND TO DISCUSSING BACK. PT REQUESTS TO THE NURSE THAT I NEED 1. THE HEAT TURNED UP, 2 IMMEDIATE PAIN MEDICATION, AND 3 THE LIGHTS DIMMED. PT REQUESTING ADMISSION FOR PAIN CONTROL.STATES LEGS ARE TO WEAK TO FUNCTION. PT OBSERVED WALKING INTO THE EMERGENCY DEPARTMENT AND FROM WAITING ROOM TO ROOM.AFTER DR LEAVES PT ASKS THIS RN. WHAT IS HE GIVING ME FOR PAIN. PT INFORMED THAT NO ORDERS FOR MEDS HAVE BEEN RECEIVED. PT STATES TO THIS RN. I NEED HIM TO GIVE ME A PAIN SHOT RIGHT NOW. DISCUSSED WITH DR ZUÑIGA, INFORMED PT THAT DR ZUÑIGA WILL NOT PRESCRIBED OR ADMINISTER ANY NARCOTIC MEDICATION UNTIL AFTER SPEAKING WITH PAIN MANAGEMENT
--- NOTE | 2021-07-29 20:28 | ED.VIS.BACK ---
HPI History of Present Illness Chief Complaint: Back Narrative Narrative: Patient states her back is hurting chronically for which she is seen in pain management, she occasionally has her legs give out on her to the point where they are weak, as they are now because they gave out on her earlier, and she has chronic diarrhea and as a result of the diarrhea occasionally is incontinent of it. She is urinating fine without any urinary incontinence or retention. She denies any saddle anesthesia numbness down her legs although she has chronic sciatica symptoms sometimes in her right lower extremity. She says she has a chronic foot drop. She states she cannot lift either one of her legs very far and shows us that she can lift each 1 about 2 inches off the bed and that is it. She does admit that she is having pain when she does this, in her low back/buttock/thigh laterally. She states all of the symptoms have been present/an issue for 10 years or more. This includes her unrelated diarrhea. She tells us that her pain management doctor told her to go to the ER because it may help her get some testing performed that insurance is not covering right now. [facility] Medical History Abdominal pain Abdominal pain Anxiety Arthritis Back pain Bipolar disorder Blackout Chest pain Chronic pain Depression Diarrhea DVT (deep venous thrombosis) Fibromyalgia Gastric reflux GERD (gastroesophageal reflux disease) Hiatal hernia High cholesterol History of edema History of IBS History of steroid therapy History of stress test HLD (hyperlipidemia) HTN (hypertension) IBS (irritable bowel syndrome) Ileus Injury of back Insomnia Kidney stones Kidney stones Major depressive disorder, recurrent, unspecified Migraine Opioid use disorder panic Personality disorder, unspecified Shortness of breath on exertion Smoker Ureteral calculus, right UTI (urinary tract infection) Vomiting Walker as ambulation aid Wears dentures Home Medications medroxyprogesterone 150 mg IM .[id number] 03/09/15 [History Last Taken 04/05/21] gabapentin 300 mg PO BID 08/09/16 [History Last Taken 04/05/21] nortriptyline [Pamelor] 100 mg PO QHS 10/13/17 [History Last Taken 04/05/21] trazodone 200 mg PO QHS 11/12/18 [History Last Taken 04/04/21] topiramate 25 mg PO DAILY 11/24/18 [History Last Taken 04/05/21] duloxetine [Cymbalta] 120 mg PO DAILY 06/02/19 [History Last Taken 12/01/19] propranolol 20 mg PO QHS 05/03/20 [History Last Taken 04/05/21] hydroxyzine HCl 100 mg PO QHS 11/27/20 [History Last Taken 04/05/21] lamotrigine 100 mg PO DAILY 11/27/20 [History Last Taken Unknown] temazepam 15 mg PO QHS 11/27/20 [History Last Taken Unknown] hydrocodone-acetaminophen 1 tab PO Q6H PRN 7 Days #20 tab 04/06/21 [Rx Last Taken Unknown] omeprazole 40 mg PO DAILY 04/06/21 [History Last Taken 04/05/21] ondansetron HCl [Zofran] 4 mg PO Q6H PRN #20 tab 04/06/21 [Rx Last Taken Unknown] potassium citrate 20 meq PO TID #180 tab 04/06/21 [Rx Last Taken Unknown] hydrocodone-acetaminophen 1 tab PO Q6H PRN 3 Days #10 tab 04/15/21 [Rx Last Taken Unknown] ondansetron 4 mg PO Q8H PRN #10 tab 04/15/21 [Rx Last Taken Unknown] ondansetron HCl [Zofran] 4 mg PO Q8H PRN #20 tab 04/28/21 [Rx Last Taken Unknown] oxycodone-acetaminophen 1 tab PO Q6H PRN PRN 2 Days #10 tablet 07/29/21 [Rx Last Taken Unknown] Allergy/AdvReac Type Severity Reaction Status Date / Time aspirin AdvReac Nausea Verified 07/29/21 17:29 Family History Father Hypertension Heart disease Brother CAD (coronary artery disease) Myocardial infarction Mother Heart disease Myocardial infarction Surgical History History of cholecystectomy History of esophagogastroduodenoscopy (EGD) History of repair of hiatal hernia S/P laparoscopic cholecystectomy Social History household members: children Smoking Status: Current every day smoker tobacco type: cigarettes alcohol intake: never substance use type: does not use ROS ROS ED Constitutional Constitutional ED: Denies chills or fever(s) Gastrointestinal Gastrointestinal: Denies abdominal pain, constipation, fecal incontinence, nausea or vomiting Genitourinary Genitourinary ED: Reports other Details: no urinary retention ; Denies abdominal discomfort or urinary incontinence Musculoskeletal Musculoskeletal: Reports as per HPI and back pain; Denies neck pain Integumentary Denies rash or wounds Neurologic Neurologic: Denies headache(s), paresthesias or weakness EXAM Physical Exam Const Vital Signs: 07/29/21 17:29 Temperature 97.6 F L Temperature Source Temporal Pulse Rate 81 Respiratory Rate 17 Blood Pressure 112/60 Blood Pressure Mean 77 Pulse Ox 96 Oxygen Delivery Method Room Air Positive well nourished and well developed General Appearance ED: well developed and NAD HEENT Negative for trauma or tenderness Eyes PERRL and EOMs intact bilaterally Neck full ROM and supple GI normal to inspection, nondistended, normoactive bowel sounds, soft to palpation and non-tender GI Narrative: Rectal exam: Good tone, normal sensation, including the perineum. Normal exam. Nontender no abscess. Back/Spine normal to inspection Thoracic Spine / Upper Back: paraspinal muscle tenderness Lumbar Spine / Lower Back: ROM limited and straight leg raise negative bilaterally Extremity normal to inspection, full ROM and no pedal edema Neuro oriented x3, no sensory deficits noted, deep tendon reflexes 2+ bilaterally and gait normal Neuro Narrative: Patient presents with relatively poor effort when we are asking her to lift her legs. She does indicate that there is pain when she does so, possibly limiting her. Toes downgoing bilaterally. Sensorium / Orientation: alert Motor Exam: clonus absent Deep Tendon Reflexes: Rt Patellar (L4): 2+, Lt Patellar (L4): 2+, Rt Ankle (S1): 2+ and Lt Ankle (S1): 2+ Deep Tendon Reflexes Back: Rt Patellar (L4): 2+, Lt Patellar (L4): 2+, Rt Ankle (S1): 2+ and Lt Ankle (S1): 2+ Plantar Reflex: Downgoing: bilateral Psych mental status grossly normal and thought process normal Skin no rashes or lesions noted and no wounds MDM MDM MDM Narrative Medical decision making narrative: Nurses state that this patient was seen standing outside smoking before she signed into the ER, followed by walking to the room and getting into bed without any difficulty. Clearly she is neurologically intact. She tells me that the diarrhea is chronic, and she goes so much that she sometimes has trouble making it to the toilet before she soils herself. The rest of her exam is inconsistent with cauda equina syndrome. She tells the nurse that I MUST get her something strong for pain right now. She did admittedly ask me to call her pain management doctor who she had talked to before coming here. Before ordering her anything for pain since she is under contract with pain management, I did page Dr. Contreras, who called back and I spoke with him about this patient. He states this is not the story that his office got from her over the phone, he was told that her pain was worse, she lost control of her legs and was incontinent and under those circumstances he appropriately referred her to the emergency department. He agrees with the sending her home according to our evaluation here. He is okay with me giving her something here for pain and a prescription for 2 days. Nurses state that the patient is here for back pain often, and they suggest referring her for a possible care plan which will be done after the fact. Discharge Plan Triage Chief Complaint: Back ED Provider: Brandon Lorenz Dx/Rx/DC Orders Clinical Impression: Acute exacerbation of chronic low back pain Instructions: ED Back Pain (Acute or Chronic) Prescriptions: New oxycodone-acetaminophen [oxycodone-acetaminophen] 1 TABLET tablet 1 tab PO Q6H PRN PRN (Reason: Pain) 2 Days Qty: 10 RF: 0 No Action medroxyprogesterone 150 MG/ML syringe 150 mg IM .[id number] RF: 0 gabapentin 300 MG capsule 300 mg PO BID RF: 0 nortriptyline [Pamelor] 50 MG capsule 100 mg PO QHS RF: 0 trazodone 100 MG tablet 200 mg PO QHS RF: 0 topiramate 25 tablet 25 mg PO DAILY RF: 0 duloxetine [Cymbalta] 30 MG capsule 120 mg PO DAILY RF: 0 propranolol 20 MG tablet 20 mg PO QHS RF: 0 temazepam 15 mg capsule 15 mg PO QHS RF: 0 hydroxyzine HCl 100 mg Tablet 100 mg PO QHS RF: 0 lamotrigine 100 mg tablet 100 mg PO DAILY RF: 0 omeprazole 40 MG capsule,delayed release(DR/EC) 40 mg PO DAILY RF: 0 hydrocodone-acetaminophen 5-325 mg tablet 1 tab PO Q6H PRN (Reason: pain) 7 Days Qty: 20 RF: 0 potassium citrate 10 mEq (1,080 mg) Tablet Extended Release 20 meq PO TID Qty: 180 RF: 0 ondansetron HCl [Zofran] 4 mg tablet 4 mg PO Q6H PRN (Reason: nausea and vomiting) Qty: 20 RF: 0 hydrocodone-acetaminophen 5-325 mg tablet 1 tab PO Q6H PRN (Reason: pain) 3 Days Qty: 10 RF: 0 ondansetron 4 mg tablet,disintegrating 4 mg PO Q8H PRN (Reason: nausea and vomiting) Qty: 10 RF: 0 ondansetron HCl [Zofran] 4 mg tablet 4 mg PO Q8H PRN (Reason: nausea and vomiting) Qty: 20 RF: 0 Primary Care Provider: Tom Giraldo Referrals: Dr. Ben [Other] - As soon as possible Tom Giraldo MD [Primary Care Provider] - Disposition Disposition: Home, Self Care
[2021-07-29] MEDS: oxyCODONE 5 MG Tablet 10 MG PO (20:44)
--- NOTE | 2021-07-29 20:49 | ED.RN ---
Pt. given 10 mg of Oxy for pain management and given DC paperwork. This RN showed patient her pain script could be picked up at pharmacy tomorrow morning. Pt. responded with Why can't I have any IV pain meds?. Pt. educated that IV pain meds would not be administered.
== END 2021-07-29 20:52 | disposition home or self-care (01) ==
PROVIDERS: Emergency Provider Emergency Medicine; PCP Family Medicine; Visit Provider Emergency Medicine
DX: M54.50 Low back pain, unspecified (principal); F31.9 Bipolar disorder, unspecified; G89.29 Other chronic pain; I10 Essential (primary) hypertension; E78.00 Pure hypercholesterolemia, unspecified; M79.7 Fibromyalgia; F17.210 Nicotine dependence, cigarettes, uncomplicated; Z79.899 Other long term (current) drug therapy
CPT/HCPCS: 99283

== ENCOUNTER 2021-08-02 11:33 | Emergency (ER) | payer MEDICAID, SELFPAY ==
[2021-08-02 11:34] VITALS: BP 136/80; PULSE 116; RESP 18; TEMP 36.5; O2SAT 100; BMI 22.9
[2021-08-02 13:11] VITALS: BP 133/93; PULSE 103; RESP 18; TEMP 37.1; O2SAT 98
--- NOTE | 2021-08-02 13:26 | EKG12_ITS ---
Test Reason : Blood Pressure : / mmHG Vent. Rate : 096 BPM Atrial Rate : 096 BPM P-R Int : 156 ms QRS Dur : 090 ms QT Int : 352 ms P-R-T Axes : 071 057 055 degrees QTc Int : 444 ms Normal sinus rhythm Normal ECG Confirmed by ISAI LAYTON, RETA ([id number]), editor sound KYLAH DE LEON ([id number]) on 08/05/2021 11:04:14 A M Referred By: DILLON Confirmed By:JENISE ALEX MD
--- NOTE | 2021-08-02 13:27 | CT_ITS ---
EXAM: CT ABDOMEN AND PELVIS WITH INTRAVENOUS CONTRAST CLINICAL INDICATION: Recent drainage and packing of abdominal wound TECHNIQUE: Helically acquired images were obtained of the abdomen and pelvis with intravenous contrast. This CT exam was performed using one or more of the following dose reduction techniques: automated exposure control, adjustment of the mA and/or kV according to patient size, and/or use of iterative reconstruction technique. This report was created using [employer] report generation technology. CONTRAST: IV 100mL Isovue-300 COMPARISON: 07/26/2021 FINDINGS: LOWER THORAX: Unremarkable. Lung bases are clear. No cardiomegaly. No significant pericardial effusion. ABDOMEN: LIVER: The low-density lesions described on prior CT are not well-seen on the current exam except for a focal area of diminished density in the central left hepatic lobe measuring 1.0 x 1.4 cm on image 25. GALLBLADDER AND BILE DUCTS: Gallbladder surgically absent. No intrahepatic bile duct dilation the current exam. PANCREAS: Unremarkable. No focal cystic or solid mass. SPLEEN: Unremarkable. Normal size without focal cystic or solid mass. ADRENALS: Unremarkable. No nodules. KIDNEYS AND URETERS: Unremarkable. Normal renal size and position. No hydronephrosis. STOMACH AND BOWEL: No stomach or bowel distention. No focal inflammatory change. PELVIS: APPENDIX: No evidence of acute appendicitis. BLADDER: Unremarkable. REPRODUCTIVE: Unremarkable as visualized. No mass. ABDOMEN and PELVIS: INTRAPERITONEAL SPACE: Unremarkable. No ascites or other fluid collection. No free air. BONES/JOINTS: Unremarkable. No suspicious lytic or blastic abnormality. SOFT TISSUES: Localized cutaneous or subcutaneous hypodensity of the left lower anterior abdominal wall on prior study has been removed with only a tiny amount of residual skin thickening and superficial air. No discrete abdominal or pelvic wall hernia. VASCULATURE: Unremarkable. Abdominal aorta is non-dilated. LYMPH NODES: Unremarkable. No enlarged lymph nodes. CT/Abdomen/Pelvis W IV Cont ONLY IMPRESSION: Localized cutaneous or subcutaneous hypodensity of the left lower anterior abdominal wall on prior study has been removed with only a tiny amount of residual skin thickening and superficial air. No drainable fluid collection is seen. Electronically Signed: Joshua Parnell MD (Brooks) at 14:43 EDT Reading Location ID and State: / [place] , Service support ,
[2021-08-02] MEDS: 0.9% Normal Saline 1,000 ML 1000 ML IV (13:41)
--- NOTE | 2021-08-02 13:41 | EX.ED.DYSGE1 ---
HPI History of Present Illness Chief Complaint: Abscess Narrative Narrative: Patient presents with abdominal pain. She had a history of an abscess a few days ago which was drained then seen in the office by PCP and a wick was placed. Patient has been doing well, she was seen by the PCP again today and was found to be slightly tachycardic. She has no fevers chills or cough or congestion, she has localized abdominal pain but no other pain. She is lucid and coherent [facility] Medical History Abdominal pain Abdominal pain Anxiety Arthritis Back pain Bipolar disorder Blackout Chest pain Chronic pain Depression Diarrhea DVT (deep venous thrombosis) Fibromyalgia Gastric reflux GERD (gastroesophageal reflux disease) Hiatal hernia High cholesterol History of edema History of IBS History of steroid therapy History of stress test HLD (hyperlipidemia) HTN (hypertension) IBS (irritable bowel syndrome) Ileus Injury of back Insomnia Kidney stones Kidney stones Major depressive disorder, recurrent, unspecified Migraine Opioid use disorder panic Personality disorder, unspecified Shortness of breath on exertion Smoker Ureteral calculus, right UTI (urinary tract infection) Vomiting Walker as ambulation aid Wears dentures Home Medications medroxyprogesterone 150 mg IM .[id number] 03/09/15 [History Last Taken 04/05/21] gabapentin 300 mg PO BID 08/09/16 [History Last Taken 04/05/21] nortriptyline [Pamelor] 100 mg PO QHS 10/13/17 [History Last Taken 04/05/21] trazodone 200 mg PO QHS 11/12/18 [History Last Taken 04/04/21] topiramate 25 mg PO DAILY 11/24/18 [History Last Taken 04/05/21] duloxetine [Cymbalta] 120 mg PO DAILY 06/02/19 [History Last Taken 12/01/19] propranolol 20 mg PO QHS 05/03/20 [History Last Taken 04/05/21] hydroxyzine HCl 100 mg PO QHS 11/27/20 [History Last Taken 04/05/21] lamotrigine 100 mg PO DAILY 11/27/20 [History Last Taken Unknown] temazepam 15 mg PO QHS 11/27/20 [History Last Taken Unknown] hydrocodone-acetaminophen 1 tab PO Q6H PRN 7 Days #20 tab 04/06/21 [Rx Last Taken Unknown] omeprazole 40 mg PO DAILY 04/06/21 [History Last Taken 04/05/21] ondansetron HCl [Zofran] 4 mg PO Q6H PRN #20 tab 04/06/21 [Rx Last Taken Unknown] potassium citrate 20 meq PO TID #180 tab 04/06/21 [Rx Last Taken Unknown] hydrocodone-acetaminophen 1 tab PO Q6H PRN 3 Days #10 tab 04/15/21 [Rx Last Taken Unknown] ondansetron 4 mg PO Q8H PRN #10 tab 04/15/21 [Rx Last Taken Unknown] ondansetron HCl [Zofran] 4 mg PO Q8H PRN #20 tab 04/28/21 [Rx Last Taken Unknown] oxycodone-acetaminophen 1 tab PO Q6H PRN PRN 2 Days #10 tablet 07/29/21 [Rx Last Taken Unknown] Allergy/AdvReac Type Severity Reaction Status Date / Time aspirin AdvReac Nausea Verified 07/29/21 17:29 Family History Father Hypertension Heart disease Brother CAD (coronary artery disease) Myocardial infarction Mother Heart disease Myocardial infarction Surgical History History of cholecystectomy History of esophagogastroduodenoscopy (EGD) History of repair of hiatal hernia S/P laparoscopic cholecystectomy Social History household members: children Smoking Status: Current every day smoker tobacco type: cigarettes alcohol intake: never substance use type: does not use ROS ROS ED ROS Narrative Past medical history: Reviewed Medications: Reviewed Social history: Noncontributory Review of systems: All systems negative except as indicated General: No fever Eyes: No visual changes ENT: No upper airway congestion, normal voice Neck: No neck pain Cardiovascular: No chest pain Respiratory: No shortness of breath or cough Gastrointestinal: Abdominal pain Genitourinary: No dysuria Musculoskeletal: Denies myalgias no difficulty with ambulation Skin: No rash Neurological: No memory loss, confusion or any focal weakness Psych: No recent behavioral changes Hematologic: No easy bleeding or easy bruising EXAM Physical Exam Narrative Exam Narrative: Physical exam General: Well nourished, Well developed, No Acute Distress she does appear anxious. Head: Normocephalic, Atraumatic Eyes: Conjunctiva not pale ENT: Moist mucous membranes Neck: Supple, Nontender, No lymphadenopathy Cardiovascular: Regular rate, Regular rhythm Respiratory: No distress, CTA bilaterally Abdomen: Soft, the abdominal incision is clean dry and intact, I removed the wick there is no active discharge there is no erythema or calor. No fluctuance or any kind of induration left. It is healing quite well. Back: Nontender, Normal Inspection. Negative for: CVA tenderness Extremities: Nontender, No edema Skin: As above Neurological: Alert, Normal Strength, Normal Sensation Psychological: Somewhat anxious Const Vital Signs: 08/02/21 11:34 08/02/21 13:11 08/02/21 14:01 Temperature 97.7 F L 98.8 F 98.9 F Temperature Source Temporal Temporal Temporal Pulse Rate 116 H 103 H 89 Respiratory Rate 18 18 14 Blood Pressure 136/80 H 133/93 H 119/74 Blood Pressure Mean 98 106 89 Pulse Ox 100 98 98 Oxygen Delivery Method Room Air Room Air Room Air MDM MDM MDM Narrative Medical decision making narrative: Patient has a normal emergency department work-up she appears well. I talked to Dr. Giraldo her PCP who will see her outpatient. Otherwise I will discharge her in stable condition. Lab Data Labs: Laboratory Results - last 24 hr 08/02/21 08/02/21 08/02/21 13:45 13:45 13:45 WBC 9.9 RBC 4.64 Hgb 14.7 Hct 43.8 MCV 94.4 MCH 31.7 MCHC 33.6 RDW Std Deviation 50.2 H RDW Coeff of Raquel 14.4 Plt Count 360 MPV 9.4 Immature Gran % (Auto) 0.400 Neut % (Auto) 71.0 H Lymph % (Auto) 21.8 [place] % (Auto) 5.4 Eos % (Auto) 0.6 Baso % (Auto) 0.8 Absolute Neuts (auto) 7.0 Absolute Lymphs (auto) 2.15 Nucleated RBC % 0 Sodium 138 Potassium 3.3 L Chloride 107 Carbon Dioxide 27.0 Anion Gap 4 L BUN 16 Creatinine 1.01 Estim Creat Clear Calc 80.07 Est GFR (MDRD) Af Amer 78 Est GFR (MDRD) Non-Af 65 BUN/Creatinine Ratio 15.8 Glucose 79 Lactic Acid 1.3 Calcium 9.6 Total Bilirubin 0.40 AST 35 ALT 53 Alkaline Phosphatase 138 H Total Protein 8.3 H Albumin 4.2 Globulin 4.1 Albumin/Globulin Ratio 1.0 Radiography Diagnostic Testing: Clinical Impression(s) from Imaging Studies Abdomen/Pelvis CT 08/02/21 13:27 IMPRESSION: Localized cutaneous or subcutaneous hypodensity of the left lower anterior abdominal wall on prior study has been removed with only a tiny amount of residual skin thickening and superficial air. No drainable fluid collection is seen. Electronically Signed: Joshua Parnell MD ([place]) at 14:43 EDT , Discharge Plan Triage Chief Complaint: Abscess ED Provider: Tom Hernandez Dx/Rx/DC Orders Clinical Impression: Abscess Instructions: Abscess Drainage Prescriptions: No Action medroxyprogesterone 150 MG/ML syringe 150 mg IM .[id number] RF: 0 gabapentin 300 MG capsule 300 mg PO BID RF: 0 nortriptyline [Pamelor] 50 MG capsule 100 mg PO QHS RF: 0 trazodone 100 MG tablet 200 mg PO QHS RF: 0 topiramate 25 tablet 25 mg PO DAILY RF: 0 duloxetine [Cymbalta] 30 MG capsule 120 mg PO DAILY RF: 0 propranolol 20 MG tablet 20 mg PO QHS RF: 0 temazepam 15 mg capsule 15 mg PO QHS RF: 0 hydroxyzine HCl 100 mg Tablet 100 mg PO QHS RF: 0 lamotrigine 100 mg tablet 100 mg PO DAILY RF: 0 omeprazole 40 MG capsule,delayed release(DR/EC) 40 mg PO DAILY RF: 0 hydrocodone-acetaminophen 5-325 mg tablet 1 tab PO Q6H PRN (Reason: pain) 7 Days Qty: 20 RF: 0 potassium citrate 10 mEq (1,080 mg) Tablet Extended Release 20 meq PO TID Qty: 180 RF: 0 ondansetron HCl [Zofran] 4 mg tablet 4 mg PO Q6H PRN (Reason: nausea and vomiting) Qty: 20 RF: 0 hydrocodone-acetaminophen 5-325 mg tablet 1 tab PO Q6H PRN (Reason: pain) 3 Days Qty: 10 RF: 0 ondansetron 4 mg tablet,disintegrating 4 mg PO Q8H PRN (Reason: nausea and vomiting) Qty: 10 RF: 0 ondansetron HCl [Zofran] 4 mg tablet 4 mg PO Q8H PRN (Reason: nausea and vomiting) Qty: 20 RF: 0 oxycodone-acetaminophen [oxycodone-acetaminophen] 1 TABLET tablet 1 tab PO Q6H PRN PRN (Reason: Pain) 2 Days Qty: 10 RF: 0 Primary Care Provider: Tom Giraldo Referrals: Tom Giraldo MD [Primary Care Provider] - 2 Days Disposition Disposition: Home, Self Care
[2021-08-02] MEDS: Morphine 4 MG/ML Syringe IV (13:42)
[2021-08-02] MEDS: Ondansetron 4 MG/2 ML Vial IV (13:42)
[2021-08-02 13:55] LABS: Absolute Lymphocyte Count 2.15 X10^3/uL (0.83-4.51); Basophil# 0.08 X10^3/uL; Basophil% 0.8 % (0-1); Eosinophil# 0.06 X10^3/uL; Eosinophils% 0.6 % (0-5); Hematocrit 43.8 % (37-47); Hemoglobin 14.7 g/dL (12.0-15.0); Lymphocyte # 2.15 X10^3/ul (0.83-4.51); Lymphocyte % 21.8 % (19-41); Mean Corp Hgb Conc 33.6 g/dL (32-36); Mean Corpuscular Hgb 31.7 pg (27.0-32.0); Mean Corpuscular Volume 94.4 fL (81-99); Mean Platelet Vol. 9.4 fl (6.2-12.0); Monocyte# 0.53 X10^3/uL; Monocyte% 5.4 % (0-10); NRBC Flagged by Analyzer 0 % (0-5); Neutrophil # 7.01 X10^3/uL (2.7-7.7); Platelet Count 360 K/mm3 (150-450); RBC Distribution Width CV 14.4 % (11.6-14.6); RBC Distribution Width SD 50.2 fl (35.1-43.9); Red Blood Count 4.64 M/mm3 (4.2-5.4); White Blood Count 9.9 K/mm3 (4.4-11.0)
[2021-08-02 14:01] VITALS: BP 119/74; PULSE 89; RESP 14; TEMP 37.2; O2SAT 98
[2021-08-02 14:11] LABS: AST(SGOT) 35 U/L (15-37); Alanine Aminotransfer ALT/SGPT 53 U/L (13-56); Albumin, Serum 4.2 g/dL (3.2-5.0); Alkaline Phosphatase 138 U/L (45-117); Anion Gap 4 (5-15); BUN 16 mg/dL (7-18); BUN/Creat Ratio 15.8 RATIO (10-20); Calcium,Total 9.6 mg/dL (8.5-10.1); Chloride 107 mmol/L (98-107); Creatinine, Serum 1.01 mg/dL (0.55-1.02); EST Glomerular Filtration Rate 65 mL/min (>60); Est Glom Filt Rate - Afr Amer 78 mL/min (>60); Estimated Creatinine Clearance 80.07 ml/min; Globulin 4.1 g/dL (2.2-4.2); Glucose 79 mg/dL (74-106); Potassium 3.3 mmol/L (3.5-5.1); Protein, Total 8.3 g/dL (6.4-8.2); Sodium Level 138 mmol/L (136-145)
[2021-08-02 14:17] LABS: Lactic Acid 1.3 mmol/L (0.4-1.9)
--- NOTE | 2021-08-02 14:35 | ED.RN ---
pt. called out stating she never received any pain medication. educated that melanie rn had medicated after the iv. states she didnt. states she would like something for anxiety vo received from dr. allen for visitril 50mg po
[2021-08-02 15:21] VITALS: BP 124/76; PULSE 78; RESP 14; TEMP 36.9; O2SAT 98
== END 2021-08-02 15:22 | disposition home or self-care (01) ==
PROVIDERS: Emergency Provider Emergency Medicine; PCP Family Medicine; Visit Provider Emergency Medicine
DX: L02.211 Cutaneous abscess of abdominal wall (principal); F31.9 Bipolar disorder, unspecified; I10 Essential (primary) hypertension; E78.00 Pure hypercholesterolemia, unspecified; K21.9 Gastro-esophageal reflux disease without esophagitis; M19.90 Unspecified osteoarthritis, unspecified site; M79.7 Fibromyalgia; F41.9 Anxiety disorder, unspecified; F17.210 Nicotine dependence, cigarettes, uncomplicated; Z79.899 Other long term (current) drug therapy
CPT/HCPCS: 36415; 74177; 80053; 83605; 85025; 87040; 93005; 96361; 96374; 96375; 99285; Q9967; J2405

== ENCOUNTER 2021-08-13 12:07 | Emergency (ER) | payer MEDICAID, SELFPAY ==
[2021-08-13 12:08] VITALS: BP 142/93; PULSE 91; RESP 18; TEMP 36.2; O2SAT 97; BMI 22.9
--- NOTE | 2021-08-13 12:39 | EDS_ITS ---
HPI History of Present Illness Chief Complaint: Back Detail of Chief Complaint: Back pain that started 15 years ago. Informant: patient Narrative Narrative: Patient presents with chronic back pain that she has had for over 15 years that has been worse over the last month. Patient is in pain management. Patient states that over the last month she is had pain radiating down her right leg and complains of some paresthesias to her foot. Her last MRI was about a year ago that showed degenerative disc disease. Patient denies any injury recently. Denies any change in bowel or bladder function. She called her pain management doctor Dr. Tita munoz who asked her to be seen in the emergency department for some pain control until they can get her in and seen. [facility] Medical History Abdominal pain Abdominal pain Anxiety Arthritis Back pain Bipolar disorder Blackout Chest pain Chronic pain Depression Diarrhea DVT (deep venous thrombosis) Fibromyalgia Gastric reflux GERD (gastroesophageal reflux disease) Hiatal hernia High cholesterol History of edema History of IBS History of steroid therapy History of stress test HLD (hyperlipidemia) HTN (hypertension) IBS (irritable bowel syndrome) Ileus Injury of back Insomnia Kidney stones Kidney stones Major depressive disorder, recurrent, unspecified Migraine Opioid use disorder panic Personality disorder, unspecified Shortness of breath on exertion Smoker Ureteral calculus, right UTI (urinary tract infection) Vomiting Walker as ambulation aid Wears dentures Home Medications medroxyprogesterone 150 mg IM .[id number] 03/09/15 [History Last Taken 04/05/21] gabapentin 300 mg PO BID 08/09/16 [History Last Taken 04/05/21] nortriptyline [Pamelor] 100 mg PO QHS 10/13/17 [History Last Taken 04/05/21] trazodone 200 mg PO QHS 11/12/18 [History Last Taken 04/04/21] topiramate 25 mg PO DAILY 11/24/18 [History Last Taken 04/05/21] duloxetine [Cymbalta] 120 mg PO DAILY 06/02/19 [History Last Taken 12/01/19] propranolol 20 mg PO QHS 05/03/20 [History Last Taken 04/05/21] hydroxyzine HCl 100 mg PO QHS 11/27/20 [History Last Taken 04/05/21] lamotrigine 100 mg PO DAILY 11/27/20 [History Last Taken Unknown] temazepam 15 mg PO QHS 11/27/20 [History Last Taken Unknown] hydrocodone-acetaminophen 1 tab PO Q6H PRN 7 Days #20 tab 04/06/21 [Rx Last Taken Unknown] omeprazole 40 mg PO DAILY 04/06/21 [History Last Taken 04/05/21] ondansetron HCl [Zofran] 4 mg PO Q6H PRN #20 tab 04/06/21 [Rx Last Taken Unknown] potassium citrate 20 meq PO TID #180 tab 04/06/21 [Rx Last Taken Unknown] hydrocodone-acetaminophen 1 tab PO Q6H PRN 3 Days #10 tab 04/15/21 [Rx Last Taken Unknown] ondansetron 4 mg PO Q8H PRN #10 tab 04/15/21 [Rx Last Taken Unknown] ondansetron HCl [Zofran] 4 mg PO Q8H PRN #20 tab 04/28/21 [Rx Last Taken Unknown] oxycodone-acetaminophen 1 tab PO Q6H PRN PRN 2 Days #10 tablet 07/29/21 [Rx Last Taken Unknown] hydrocodone-acetaminophen 1 tab PO Q4H PRN PRN 2 Days #10 tablet 08/13/21 [Rx Last Taken Unknown] Allergy/AdvReac Type Severity Reaction Status Date / Time aspirin AdvReac Nausea Verified 08/13/21 12:08 Family History Father Hypertension Heart disease Brother CAD (coronary artery disease) Myocardial infarction Mother Heart disease Myocardial infarction Surgical History History of cholecystectomy History of esophagogastroduodenoscopy (EGD) History of repair of hiatal hernia S/P laparoscopic cholecystectomy Social History household members: children Smoking Status: Current every day smoker tobacco type: cigarettes alcohol intake: never substance use type: does not use ROS ROS ED Constitutional Constitutional ED: Reports systems reviewed and no addt'l complaints, except as documented; Denies body ache(s), change in weight or chills Eyes Eyes: Denies acute decrease in peripheral vision, change in vision, double vision or loss of vision ENT ENT ED: Reports none; Denies ear pain, lip swelling, loss taste/smell, neck pain, otalgia or sore throat Cardiovascular Cardiovascular: Reports none; Denies abdominal pain, chest pain with activity, leg edema, lightheadedness, palpitations, rapid heart rate or syncope Respiratory/Chest Respiratory/Chest: Reports none; Denies change in mental status, dry cough, dyspnea, hemoptysis, shortness of breath at rest or shortness of breath with exertion Gastrointestinal Gastrointestinal: Reports none; Denies abdominal pain, change in stool character, diarrhea, hematemesis, hematochezia, melena, rectal bleeding or vomiting Genitourinary Genitourinary ED: Reports none; Denies abdominal discomfort, anuria, dysuria, genital pain or polyuria Musculoskeletal Musculoskeletal: Reports none and back pain; Denies arthralgias, difficulty walking, extremity pain, muscle weakness or myalgias Integumentary Reports none; Denies abscess or rash Neurologic Neurologic: Reports none; Denies abnormal gait, confusion, focal weakness, frequent falls, headache(s), loss of vision, numbness, paresthesias, radicular pain, vertigo or weakness Psychiatric Psychiatric: Reports systems reviewed and no addt'l complaints, except as documented and none; Denies behavioral changes, confusion, difficulty concentrating, hallucinations, suicidal ideation, tactile hallucinations or visual hallucinations Endocrine Endocrinology: Denies none, cold intolerance, excessive sweating, fatigue or heat intolerance Hematologic/Lymphatic Hematologic/Lymphatic: Reports none; Denies anemia, easy bleeding or easy bruising Allergic/Immunologic Allergic/Immunologic ED: Denies as per HPI, none, lip swelling, mouth swelling, throat swelling, tongue swelling or hives EXAM Physical Exam Const Vital Signs: 08/13/21 12:08 Temperature 97.1 F L Temperature Source Temporal Pulse Rate 91 Respiratory Rate 18 Blood Pressure 142/93 H Blood Pressure Mean 109 Pulse Ox 97 Oxygen Delivery Method Room Air Positive well nourished and well developed General Appearance ED: well developed and NAD HEENT Reports TM's clear and moist mucous membranes normocephalic and atraumatic; Negative for trauma or tenderness Tympanic Membrane ED: Yes TM's clear Eyes PERRL and EOMs intact bilaterally General Eye ED: Negative for pale conjunctiva or scleral icterus Neck no lymphadenopathy, supple and no JVD General: Negative for tenderness Chest Wall inspection of chest normal and palpation of chest normal Chest: Negative for tenderness Resp normal respiratory effort and clear to auscultation bilaterally Effort and Inspection: Negative for respiratory distress or pain with movement Auscultation: Negative for rhonchi, wheezes or diminished lung sounds Cardio regular rate, regular rhythm, S1 normal heart sound, S2 normal heart sound and no murmurs Peripheral Pulses: pulses 2+ throughout GI normal to inspection, nondistended, normoactive bowel sounds, soft to palpation, non-tender, non-distended and no masses Back/Spine no CVA tenderness and no thoracic nor lumbar tenderness Back/Spine Narrative: Mild tenderness to the right lumbar paraspinal musculature. She has positive straight leg raise at about 20 degrees while seated. Deep tendon reflexes are plus 1 out of 4 bilaterally at the patella and Achilles. Patient has normal L5 extension bilaterally. Patient has diminished sensation to light touch on the right leg compared to the left leg. No weakness on exam noted. Extremity normal to inspection General Extremety ED: Negative for edema General Extremity: Negative for edema Neuro oriented x3, CN's II-XII intact bilaterally, no sensory deficits noted and gait normal Sensorium / Orientation: awake, alert, oriented to person, oriented to place and oriented to time Motor Exam: strength 5/5 throughout and strength abnormal Psych mental status grossly normal Skin no rashes or lesions noted and no wounds MDM MDM MDM Narrative Medical decision making narrative: Patient has acute exacerbation of chronic pain. I will medicate her with a dose of Dilaudid as well as Zofran and Toradol. Patient will be given a Duragesic patch and a prescription for few [place] until she can follow-up with pain management. Discharge Plan Triage Chief Complaint: Back ED Provider: Sandra Cordova Dx/Rx/DC Orders Clinical Impression: Back pain, Acute lumbar radiculopathy Instructions: ED Back and Neck Pain, General, ED Sciatica Prescriptions: New hydrocodone-acetaminophen [hydrocodone-acetaminophen] 1 TABLET tablet 1 tab PO Q4H PRN PRN (Reason: Pain) 2 Days Qty: 10 RF: 0 No Action medroxyprogesterone 150 MG/ML syringe 150 mg IM .[id number] RF: 0 gabapentin 300 MG capsule 300 mg PO BID RF: 0 nortriptyline [Pamelor] 50 MG capsule 100 mg PO QHS RF: 0 trazodone 100 MG tablet 200 mg PO QHS RF: 0 topiramate 25 tablet 25 mg PO DAILY RF: 0 duloxetine [Cymbalta] 30 MG capsule 120 mg PO DAILY RF: 0 propranolol 20 MG tablet 20 mg PO QHS RF: 0 temazepam 15 mg capsule 15 mg PO QHS RF: 0 hydroxyzine HCl 100 mg Tablet 100 mg PO QHS RF: 0 lamotrigine 100 mg tablet 100 mg PO DAILY RF: 0 omeprazole 40 MG capsule,delayed release(DR/EC) 40 mg PO DAILY RF: 0 hydrocodone-acetaminophen 5-325 mg tablet 1 tab PO Q6H PRN (Reason: pain) 7 Days Qty: 20 RF: 0 potassium citrate 10 mEq (1,080 mg) Tablet Extended Release 20 meq PO TID Qty: 180 RF: 0 ondansetron HCl [Zofran] 4 mg tablet 4 mg PO Q6H PRN (Reason: nausea and vomiting) Qty: 20 RF: 0 hydrocodone-acetaminophen 5-325 mg tablet 1 tab PO Q6H PRN (Reason: pain) 3 Days Qty: 10 RF: 0 ondansetron 4 mg tablet,disintegrating 4 mg PO Q8H PRN (Reason: nausea and vomiting) Qty: 10 RF: 0 ondansetron HCl [Zofran] 4 mg tablet 4 mg PO Q8H PRN (Reason: nausea and vomiting) Qty: 20 RF: 0 oxycodone-acetaminophen [oxycodone-acetaminophen] 1 TABLET tablet 1 tab PO Q6H PRN PRN (Reason: Pain) 2 Days Qty: 10 RF: 0 Referrals: Care Physician,No Primary [NON-STAFF] - Activity Restrictions/Additional Instructions: See your spray painter for further pain management. Disposition Disposition: Home, Self Care
[2021-08-13] MEDS: Ketorolac 60 MG/2 ML Vial IM (12:45)
[2021-08-13] MEDS: Ondansetron 4 MG/2 ML Vial IM (12:45)
[2021-08-13] MEDS: HYDROmorphone 1 MG/ML Syringe IM (12:46)
== END 2021-08-13 13:50 | disposition home or self-care (01) ==
PROVIDERS: Emergency Provider Emergency Medicine; Visit Provider Emergency Medicine
DX: M54.9 Dorsalgia, unspecified (principal); F31.9 Bipolar disorder, unspecified; M54.16 Radiculopathy, lumbar region; G89.29 Other chronic pain; I10 Essential (primary) hypertension; E78.5 Hyperlipidemia, unspecified; K58.9 Irritable bowel syndrome, unspecified; M79.7 Fibromyalgia; K21.9 Gastro-esophageal reflux disease without esophagitis; F17.210 Nicotine dependence, cigarettes, uncomplicated; Z79.890 Hormone replacement therapy; Z79.899 Other long term (current) drug therapy
CPT/HCPCS: 96374; 96375; 99282; J2405

== ENCOUNTER 2021-08-28 16:26 | Emergency (ER) | payer MEDICAID, SELFPAY ==
[2021-08-28 16:27] VITALS: BP 113/77; PULSE 86; RESP 14; TEMP 36.7; O2SAT 96; BMI 23.7
[2021-08-28 16:45] VITALS: BP 106/71; PULSE 79; RESP 16; O2SAT 98
--- NOTE | 2021-08-28 17:10 | EX.ED.DYSGE1 ---
HPI <Dr. Heide Gorman MD - Last Filed: 08/28/21 23:38> History of Present Illness Chief Complaint: Abd Pain <MANOJ NICHOLS - Last Filed: 08/28/21 20:23> History of Present Illness Informant: patient Onset/Context/Timing Onset: Days (7) Context: Gradual Onset Timing: Continuous Current Severity: 9/10 Maximum Severity: 9/10 Narrative Narrative: Patient presents secondary to abdominal pain that began 1 week ago following POP procedure. Patient states this procedure was done at [facility] on August [address] Clement. Patient describes the pain as a constant 9 out of 10, without any relieving factors. Patient complains of nausea but denies vomiting. Patient denies fever. Patient reports diarrhea, but this is her baseline since preprocedure. Patient denies any dark stool or hematochezia. Patient states pain is worse with eating, but is able to drink Sprite. Patient has not taken any pain medication at home. Patient states that she was told to come to the ER to be evaluated for possible bleeding postoperatively. PFS <Dr. Heide Gorman MD - Last Filed: 08/28/21 23:38> [facility] Medical History (Updated 08/28/21 @ 20:18 by MANOJ NICHOLS) Abdominal pain Abdominal pain Anxiety Arthritis Back pain Bipolar disorder Blackout Chest pain Chronic pain Depression Diarrhea DVT (deep venous thrombosis) Fibromyalgia Gastric reflux Gastroparalysis GERD (gastroesophageal reflux disease) Hiatal hernia High cholesterol History of edema History of IBS History of steroid therapy History of stress test HLD (hyperlipidemia) HTN (hypertension) IBS (irritable bowel syndrome) Ileus Injury of back Insomnia Kidney stones Kidney stones Major depressive disorder, recurrent, unspecified Migraine Opioid use disorder panic Personality disorder, unspecified Shortness of breath on exertion Smoker Ureteral calculus, right UTI (urinary tract infection) Vomiting Walker as ambulation aid Wears dentures Home Medications medroxyprogesterone 150 mg IM .[id number] 03/09/15 [History Last Taken 04/05/21] gabapentin 300 mg PO BID 08/09/16 [History Last Taken 04/05/21] nortriptyline [Pamelor] 100 mg PO QHS 10/13/17 [History Last Taken 04/05/21] trazodone 200 mg PO QHS 06/28/19 [History Last Taken 04/04/21] topiramate 25 mg PO DAILY 11/24/18 [History Last Taken 04/05/21] duloxetine [Cymbalta] 120 mg PO DAILY 06/02/19 [History Last Taken 12/01/19] propranolol 20 mg PO QHS 05/03/20 [History Last Taken 04/05/21] hydroxyzine HCl 100 mg PO QHS 11/27/20 [History Last Taken 04/05/21] lamotrigine 100 mg PO DAILY 11/27/20 [History Last Taken Unknown] temazepam 15 mg PO QHS 11/27/20 [History Last Taken Unknown] hydrocodone-acetaminophen 1 tab PO Q6H PRN 7 Days #20 tab 04/06/21 [Rx Last Taken Unknown] omeprazole 40 mg PO DAILY 04/06/21 [History Last Taken 04/05/21] ondansetron HCl [Zofran] 4 mg PO Q6H PRN #20 tab 04/06/21 [Rx Last Taken Unknown] potassium citrate 20 meq PO TID #180 tab 04/06/21 [Rx Last Taken Unknown] hydrocodone-acetaminophen 1 tab PO Q6H PRN 3 Days #10 tab 04/15/21 [Rx Last Taken Unknown] ondansetron 4 mg PO Q8H PRN #10 tab 04/15/21 [Rx Last Taken Unknown] ondansetron HCl [Zofran] 4 mg PO Q8H PRN #20 tab 04/28/21 [Rx Last Taken Unknown] oxycodone-acetaminophen 1 tab PO Q6H PRN PRN 2 Days #10 tablet 07/29/21 [Rx Last Taken Unknown] hydrocodone-acetaminophen 1 tab PO Q4H PRN PRN 2 Days #10 tablet 08/13/21 [Rx Last Taken Unknown] hydrocodone-acetaminophen 1 tab PO Q6H PRN 3 Days #10 tab 08/28/21 [Rx Last Taken Unknown] Allergy/AdvReac Type Severity Reaction Status Date / Time aspirin AdvReac Nausea Verified 08/28/21 16:28 Family History Father Hypertension Heart disease Brother CAD (coronary artery disease) Myocardial infarction Mother Heart disease Myocardial infarction Surgical History History of cholecystectomy History of esophagogastroduodenoscopy (EGD) History of repair of hiatal hernia S/P laparoscopic cholecystectomy Social History household members: children Smoking Status: Current every day smoker tobacco type: cigarettes alcohol intake: never substance use type: does not use <MANOJ NICHOLS - Last Filed: 08/28/21 20:23> ROS ED Constitutional Constitutional ED: Denies chills, fever(s) or sweats Eyes Eyes: Denies change in vision ENT ENT ED: Denies ear pain, rhinorrhea or sore throat Cardiovascular Cardiovascular: Denies chest pain or palpitations Respiratory/Chest Respiratory/Chest: Denies cough or dyspnea Gastrointestinal Gastrointestinal: Reports abdominal pain, bloating, diarrhea and nausea; Denies hematochezia, melena or vomiting Genitourinary Genitourinary ED: Reports LMP (females 10-50) Details: Comment: (Patient states she doesn't have menstrual periods with Depo. ); Denies dysuria, hematuria or urinary frequency Musculoskeletal Musculoskeletal: Denies arthralgias, myalgias or neck pain Integumentary Denies rash Neurologic Neurologic: Denies headache(s) or weakness Psychiatric Psychiatric: Denies anxiety or depression Endocrine Endocrinology: Denies polydipsia or polyuria EXAM <Dr. Heide Gorman MD - Last Filed: 08/28/21 23:38> Physical Exam Const Vital Signs: 08/28/21 16:27 08/28/21 16:45 08/28/21 20:33 Temperature 98.1 F Temperature Source Temporal Pulse Rate 86 79 79 Respiratory Rate 14 16 15 Blood Pressure 113/77 106/71 136/84 H Blood Pressure Mean 89 82 Pulse Ox 96 98 99 Oxygen Delivery Method Room Air Room Air <MANOJ NICHOLS - Last Filed: 08/28/21 20:23> Physical Exam Const Vital Signs: 08/28/21 16:27 08/28/21 16:45 08/28/21 20:33 Temperature 98.1 F Temperature Source Temporal Pulse Rate 86 79 79 Respiratory Rate 14 16 15 Blood Pressure 113/77 106/71 136/84 H Blood Pressure Mean 89 82 Pulse Ox 96 98 99 Oxygen Delivery Method Room Air Room Air Positive well nourished and well developed General Appearance ED: well developed HEENT Reports moist mucous membranes Negative for trauma or tenderness Eyes PERRL and EOMs intact bilaterally Neck no lymphadenopathy and supple Chest Wall inspection of chest normal and palpation of chest normal Resp normal respiratory effort and clear to auscultation bilaterally Cardio regular rate, regular rhythm and no murmurs GI Inspection: abdominal distention Auscultation: hypoactive bowel sounds Palpation: tender; Negative for guarding Back/Spine no CVA tenderness Extremity normal to inspection General Extremety ED: Negative for edema or tenderness General Extremity: Negative for edema Neuro oriented x3 and CN's II-XII intact bilaterally Sensorium / Orientation: alert Motor Exam: strength 5/5 throughout Psych mental status grossly normal Skin no rashes or lesions noted [facility] <Dr. Heide Gomran MD - Last Filed: 08/28/21 23:38> [facility] Lab Data Labs: Laboratory Results - last 24 hr 08/28/21 08/28/21 08/28/21 17:25 17:25 17:25 WBC 7.9 RBC 4.49 Hgb 13.7 Hct 41.2 MCV 91.8 MCH 30.5 MCHC 33.3 RDW Std Deviation 45.3 H RDW Coeff of Raquel 13.5 Plt Count 303 MPV 9.5 Immature Gran % (Auto) 0.500 Neut % (Auto) 59.8 Lymph % (Auto) 28.7 [place] % (Auto) 7.3 Eos % (Auto) 2.4 Baso % (Auto) 1.3 H Absolute Neuts (auto) 4.7 Absolute Lymphs (auto) 2.27 Nucleated RBC % 0 Sodium 141 Potassium 4.1 Chloride 115 H Carbon Dioxide 21.0 Anion Gap 5 BUN 11 Creatinine 1.00 Estim Creat Clear Calc 80.87 Est GFR (MDRD) Af Amer 79 Est GFR (MDRD) Non-Af 65 BUN/Creatinine Ratio 11.0 Glucose 91 Calcium 8.9 Serum , Qual NEGATIVE Radiography Diagnostic Testing: Clinical Impression(s) from Imaging Studies Abdomen/Pelvis CT 08/28/21 19:00 Treatment and Re-Evaluation Narrative: Patient seen and evaluated with [employer]ANCE [employer] student. I personally interviewed and examined the patient. I was involved in all aspects of patient's orders, interpretation of results, and treatment. Patient presents 1 week postop with abdominal pain. She had a procedure performed where the pyloric muscle was lysed and released. She states she is been having upper abdominal pain since that time. She contacted her surgeon's office who wanted her to be evaluated to ensure there is no postop bleeding. Patient denies fever or chills. She reports diarrhea which is chronic and unchanged from baseline. Patient sitting upright in bed no acute distress. Head neck examination unremarkable. Moist mucous membranes noted. Heart is regular rate and rhythm. Lung sounds are clear. Abdomen is soft with moderate diffuse tenderness of patient. No guarding or rebound. Active bowel sounds are noted. Lab work and CT scan with p.o. and IV contrast obtained. Lab work is unremarkable. CT scan reveals no acute findings in the stomach or intestine. Blood counts are stable with no sign of significant anemia. Patient is given a prescription for 10 tabs of [place] and is to call her surgeon tomorrow for follow-up. <MANOJ MAGDALENA - Last Filed: 08/28/21 20:23> [facility] MDM Narrative Medical decision making narrative: CBC, BMP, serum hCG ordered. Patient will be given Zofran for nausea and Dilaudid for pain. CT with IV and oral contrast ordered. Lab Data Attestation: I reviewed the patient's lab results. Labs: Laboratory Results - last 24 hr 08/28/21 08/28/21 08/28/21 17:25 17:25 17:25 WBC 7.9 RBC 4.49 Hgb 13.7 Hct 41.2 MCV 91.8 MCH 30.5 MCHC 33.3 RDW Std Deviation 45.3 H RDW Coeff of Raquel 13.5 Plt Count 303 MPV 9.5 Immature Gran % (Auto) 0.500 Neut % (Auto) 59.8 Lymph % (Auto) 28.7 [place] % (Auto) 7.3 Eos % (Auto) 2.4 Baso % (Auto) 1.3 H Absolute Neuts (auto) 4.7 Absolute Lymphs (auto) 2.27 Nucleated RBC % 0 Sodium 141 Potassium 4.1 Chloride 115 H Carbon Dioxide 21.0 Anion Gap 5 BUN 11 Creatinine 1.00 Estim Creat Clear Calc 80.87 Est GFR (MDRD) Af Amer 79 Est GFR (MDRD) Non-Af 65 BUN/Creatinine Ratio 11.0 Glucose 91 Calcium 8.9 Serum , Qual NEGATIVE Radiography Diagnostic Testing: Clinical Impression(s) from Imaging Studies Abdomen/Pelvis CT 08/28/21 19:00 Treatment and Re-Evaluation Narrative: Patient lab work and you patient hemoglobin normal at 13.7. White blood cell count normal at 7.9. Patient has normal electrolytes and kidney function. CT of the abdomen pelvis with IV and oral contrast shows improvement of wall thickening, and negative for any bleeding. Results discussed with patient. Patient will be sent home with prescription for [place], and given 1 dose prior to discharge. Patient is in agreement to call surgeon's office tomorrow and discuss further management of pain. Patient is aware to return to the emergency department for fever or should vomiting blood or bloody stool occur. Discharge Plan Triage Chief Complaint: Abd Pain ED Provider: Heide Gorman Dx/Rx/DC Orders Clinical Impression: Abdominal pain Instructions: Abdominal Pain, Managing Post-Op Pain at Home Prescriptions: New hydrocodone-acetaminophen 5-325 mg tablet 1 tab PO Q6H PRN (Reason: pain) 3 Days Qty: 10 RF: 0 No Action medroxyprogesterone 150 MG/ML syringe 150 mg IM .[id number] RF: 0 gabapentin 300 MG capsule 300 mg PO BID RF: 0 nortriptyline [Pamelor] 50 MG capsule 100 mg PO QHS RF: 0 trazodone 100 MG tablet 200 mg PO QHS RF: 0 topiramate 25 tablet 25 mg PO DAILY RF: 0 duloxetine [Cymbalta] 30 MG capsule 120 mg PO DAILY RF: 0 propranolol 20 MG tablet 20 mg PO QHS RF: 0 temazepam 15 mg capsule 15 mg PO QHS RF: 0 hydroxyzine HCl 100 mg Tablet 100 mg PO QHS RF: 0 lamotrigine 100 mg tablet 100 mg PO DAILY RF: 0 omeprazole 40 MG capsule,delayed release(DR/EC) 40 mg PO DAILY RF: 0 hydrocodone-acetaminophen 5-325 mg tablet 1 tab PO Q6H PRN (Reason: pain) 7 Days Qty: 20 RF: 0 potassium citrate 10 mEq (1,080 mg) Tablet Extended Release 20 meq PO TID Qty: 180 RF: 0 ondansetron HCl [Zofran] 4 mg tablet 4 mg PO Q6H PRN (Reason: nausea and vomiting) Qty: 20 RF: 0 hydrocodone-acetaminophen 5-325 mg tablet 1 tab PO Q6H PRN (Reason: pain) 3 Days Qty: 10 RF: 0 ondansetron 4 mg tablet,disintegrating 4 mg PO Q8H PRN (Reason: nausea and vomiting) Qty: 10 RF: 0 ondansetron HCl [Zofran] 4 mg tablet 4 mg PO Q8H PRN (Reason: nausea and vomiting) Qty: 20 RF: 0 oxycodone-acetaminophen [oxycodone-acetaminophen] 1 TABLET tablet 1 tab PO Q6H PRN PRN (Reason: Pain) 2 Days Qty: 10 RF: 0 hydrocodone-acetaminophen [hydrocodone-acetaminophen] 1 TABLET tablet 1 tab PO Q4H PRN PRN (Reason: Pain) 2 Days Qty: 10 RF: 0 Referrals: TOMER MACKENZIE [Other] - As soon as possible Disposition Disposition: Home, Self Care Discharge Date/Time: 08/28/21 20:35
[2021-08-28] MEDS: Ondansetron 4 MG/2 ML Vial IV (17:31)
[2021-08-28] MEDS: HYDROmorphone 0.5 MG/0.5 ML SYRINGE IV ×2 (17:31→18:17)
[2021-08-28 17:36] LABS: Absolute Lymphocyte Count 2.27 X10^3/uL (0.83-4.51); Absolute Neutrophil Count 4.7 X10^3/uL (2.0-7.7); Basophil% 1.3 % (0-1); Eosinophil# 0.19 X10^3/uL; Eosinophils% 2.4 % (0-5); Hematocrit 41.2 % (37-47); Hemoglobin 13.7 g/dL (12.0-15.0); Lymphocyte # 2.27 X10^3/ul (0.83-4.51); Lymphocyte % 28.7 % (19-41); Mean Corp Hgb Conc 33.3 g/dL (32-36); Mean Corpuscular Hgb 30.5 pg (27.0-32.0); Mean Corpuscular Volume 91.8 fL (81-99); Mean Platelet Vol. 9.5 fl (6.2-12.0); Monocyte# 0.58 X10^3/uL; Monocyte% 7.3 % (0-10); NRBC Flagged by Analyzer 0 % (0-5); Neutrophil # 4.72 X10^3/uL (2.7-7.7); Neutrophil % 59.8 % (47-70); Platelet Count 303 K/mm3 (150-450); RBC Distribution Width CV 13.5 % (11.6-14.6); RBC Distribution Width SD 45.3 fl (35.1-43.9); Red Blood Count 4.49 M/mm3 (4.2-5.4); White Blood Count 7.9 K/mm3 (4.4-11.0)
[2021-08-28 18:04] LABS: Anion Gap 5 (5-15); BUN 11 mg/dL (7-18); Calcium,Total 8.9 mg/dL (8.5-10.1); Chloride 115 mmol/L (98-107); EST Glomerular Filtration Rate 65 mL/min (>60); Est Glom Filt Rate - Afr Amer 79 mL/min (>60); Estimated Creatinine Clearance 80.87 ml/min; Glucose 91 mg/dL (74-106); Internal QC Validated? YES +Cl - CLEAR BKGD; Potassium 4.1 mmol/L (3.5-5.1); Pregnancy, Serum, hCG Quali. NEGATIVE Negative; Sodium Level 141 mmol/L (136-145)
--- NOTE | 2021-08-28 19:00 | CT_ITS ---
STUDY: CT Abdomen And Pelvis W/ Contrast Injection 08/28/2021 7:25 PM REASON FOR EXAM: Female, 41 years old. ABDOMINAL PAIN ABD PAIN; POP PROCEDURE 08/20 -- IV PO Contrast TECHNIQUE: Transaxial images were obtained with oral contrast, and with Oral and amp; IV Gastrografin and amp; 100mL Isovue-300 intravenous contrast. Individualized dose optimization techniques were used for this CT. COMPARISON: 08.02.21 FINDINGS: The visualized lung bases are unremarkable. The visualized portions of the heart are within normal limits. Normal liver. There is non-visualization of the gallbladder, which may be secondary to either contraction or a prior cholecystectomy. Normal spleen. Normal pancreas. Normal bilateral adrenal glands. No acute findings of the right kidney. No acute findings of the left kidney. Normal visualized stomach. Normal small intestine. Stool throughout the colon. There is non-visualization of the appendix. There are no acute findings of the abdominal aorta. Normal inferior vena cava. Subcentimeter mesenteric lymph nodes. Normal urinary bladder. Normal visualized uterus. Midline ventral hernia containing fat. There is minimal cutaneous thickening of the left lower anterior abdominal wall. This is significantly improved since the prior study. No drainable fluid collection is seen. There is an umbilical hernia containing fat. Normal osseous structures. IMPRESSION: (NOT LISTED IN ORDER OF SIGNIFICANCE) There is minimal cutaneous thickening of the left lower anterior abdominal wall. This is significantly improved since the prior study. No drainable fluid collection is seen. Other findings as above. Electronically Signed: Marky Ram MD at 19:45 EDT , CT/Abdomen/Pelvis WITH Contrast
[2021-08-28] MEDS: HYDROcodone Bitartrate/Apap 5/325 Tablet PO (20:31)
[2021-08-28 20:33] VITALS: BP 136/84; PULSE 79; RESP 15; O2SAT 99
== END 2021-08-28 20:35 | disposition home or self-care (01) ==
PROVIDERS: Emergency Provider Emergency Medicine; Visit Provider Emergency Medicine
DX: R10.9 Unspecified abdominal pain (principal); F33.9 Major depressive disorder, recurrent, unspecified; R11.0 Nausea; E78.5 Hyperlipidemia, unspecified; I10 Essential (primary) hypertension; M19.90 Unspecified osteoarthritis, unspecified site; M79.7 Fibromyalgia; Z86.718 Personal history of other venous thrombosis and embolism; K21.9 Gastro-esophageal reflux disease without esophagitis; F41.9 Anxiety disorder, unspecified; F32.A Depression, unspecified; Z79.899 Other long term (current) drug therapy; F17.210 Nicotine dependence, cigarettes, uncomplicated
CPT/HCPCS: 74177; 80048; 84703; 85025; 96374; 96375; 96376; 99284; Q9967; A4216; J2405

== ENCOUNTER → 2021-10-11 | Outpatient (CLI) | payer MEDICAID, SELFPAY ==
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
== END | disposition home or self-care (01) ==
LOC: MTRAD 13:46
DX: K59.04 Chronic idiopathic constipation (principal)
CPT/HCPCS: 74018

== ENCOUNTER → 2021-10-15 | Outpatient (CLI) | payer MEDICAID, SELFPAY | END | disposition home or self-care (01) | LOC: MFPLAB 16:09 | PROVIDERS: Visit Provider Family Medicine | DX: M54.9 Dorsalgia, unspecified (principal) | CPT/HCPCS: 87086 ==

== ENCOUNTER → 2021-10-23 | Outpatient (CLI) | payer MEDICAID, SELFPAY ==
[2021-10-23 18:06] LABS: Color, Urine Yellow (Yellow); Glucose, Dipstick Normal (Normal); Ketone-Dipstick 5 mg/dl (Negative); Leukocyte Esterase-Dipstick 25 /ul (Negative); Nitrite-Dipstick Negative (Negative); Occult Blood-Urine Negative /ul (Negative); Protein-Dipstick 30 mg/dl (Negative); Specific Gravity, Urine 1.025 (1.002-1.030); Urine Clarity Clear (Clear); Urine Urobilinogen 1 mg/dl (Normal)
[2021-10-23 18:21] LABS: Urine Bilirubin Dipstick 1 mg/dL (Negative)
== END | disposition home or self-care (01) ==
PROVIDERS: Referring Provider Urology; Visit Provider Urology
DX: N39.0 Urinary tract infection, site not specified (principal)
CPT/HCPCS: 81002; 87086; 87088

== ENCOUNTER → 2021-12-27 | Outpatient (CLI) | payer MEDICAID, SELFPAY ==
[2021-12-27 10:24] LABS: Absolute Lymphocyte Count 2.11 X10^3/uL (0.83-4.51); Absolute Neutrophil Count 5.5 X10^3/uL (2.0-7.7); Basophil# 0.11 X10^3/uL; Basophil% 1.3 % (0-1); Eosinophil# 0.14 X10^3/uL; Eosinophils% 1.6 % (0-5); Hemoglobin 15.1 g/dL (12.0-15.0); Lymphocyte # 2.11 X10^3/ul (0.83-4.51); Lymphocyte % 24.9 % (19-41); Mean Corp Hgb Conc 32.1 g/dL (32-36); Mean Corpuscular Hgb 29.7 pg (27.0-32.0); Mean Corpuscular Volume 92.5 fL (81-99); Mean Platelet Vol. 9.7 fl (6.2-12.0); Monocyte# 0.62 X10^3/uL; Monocyte% 7.3 % (0-10); NRBC Flagged by Analyzer 0 % (0-5); Neutrophil # 5.47 X10^3/uL (2.7-7.7); Neutrophil % 64.4 % (47-70); Platelet Count 351 K/mm3 (150-450); RBC Distribution Width CV 14.6 % (11.6-14.6); RBC Distribution Width SD 49.9 fl (35.1-43.9); Red Blood Count 5.08 M/mm3 (4.2-5.4); White Blood Count 8.5 K/mm3 (4.4-11.0)
[2021-12-27 10:54] LABS: Anion Gap 6 (5-15); BUN 13 mg/dL (7-18); BUN/Creat Ratio 12.1 RATIO (10-20); Calcium,Total 9.6 mg/dL (8.5-10.1); Chloride 109 mmol/L (98-107); Creatinine, Serum 1.07 mg/dL (0.55-1.02); EST Glomerular Filtration Rate 60 mL/min (>60); Est Glom Filt Rate - Afr Amer 73 mL/min (>60); Glucose 91 mg/dL (74-106); Potassium 3.9 mmol/L (3.5-5.1); Sodium Level 140 mmol/L (136-145)
== END | disposition home or self-care (01) ==
LOC: MFPLAB 08:51
PROVIDERS: PCP Family Medicine; Referring Provider Family Medicine; Visit Provider Family Medicine
DX: R79.89 Other specified abnormal findings of blood chemistry (principal); I77.1 Stricture of artery
CPT/HCPCS: 36415; 80048; 85025

== ENCOUNTER → 2022-02-28 | Outpatient (CLI) | payer MEDICAID, SELFPAY ==
[2022-03-06 17:49] LABS: HPV APTIMA, High Risk Negative (Negative)
== END | disposition home or self-care (01) ==
LOC: LABSPEC 11:19
PROVIDERS: PCP Family Medicine; Visit Provider Obstetrics & Gynecology
DX: Z12.4 Encounter for screening for malignant neoplasm of cervix (principal)
CPT/HCPCS: 87624; 88175; G0145

== ENCOUNTER → 2022-03-18 | Outpatient (CLI) | payer MEDICAID, SELFPAY ==
--- NOTE | 2022-03-18 12:33 | BI_ITS ---
MAMMOGRAPHY - BILATERAL SCREENING REASON FOR EXAM: Female, 41 years old. Routine annual screening examination. PERTINENT HISTORY: Non-contributory. TECHNIQUE: Digital bilateral breast cesar (3D mammographic acquisition) in the CC and MLO projections. 2-D mediolateral oblique (MLO) and craniocaudad (CC) views of both breasts were obtained. CAD: Full Field Digital Mammography with Computer Added Detection was performed. COMPARISON: None. Baseline examination. FINDINGS: Breast Composition: The breasts are heterogeneously dense, which may obscure small masses. There are no dominant masses or suspicious calcifications. No other significant abnormalities are identified. BI/SCRN MAMM (CAD)W/CESAR BILAT IMPRESSION: Negative screening mammogram. Yearly followup mammogram recommended. (A) ASSESSMENT CATEGORY: BIRADS Category 1: Negative. A letter regarding these results will be sent to the patient by the facility within 30 days. Approximately 10% of breast cancers are not detected by mammography. A normal mammogram should not delay biopsy of a clinically suspicious abnormality. [id number] Electronically Signed: Francisco Lopez MD at 13:45 EDT ,
== END | disposition home or self-care (01) ==
LOC: OPBI 12:32
PROVIDERS: PCP Family Medicine; Referring Provider Obstetrics & Gynecology; Visit Provider Obstetrics & Gynecology
DX: Z12.31 Encounter for screening mammogram for malignant neoplasm of breast (principal)
CPT/HCPCS: 77063; 77067

== ENCOUNTER 2022-06-09 17:33 | Emergency (ER) | payer MEDICAID, SELFPAY ==
[2022-06-09 17:34] VITALS: BP 145/90; PULSE 86; RESP 15; TEMP 36.7; O2SAT 97; BMI 23.6
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
== END 2022-06-09 19:49 | disposition home or self-care (01) ==
PROVIDERS: Emergency Provider Student in an Organized Health Care Education/Training Program; PCP Family Medicine; Visit Provider Student in an Organized Health Care Education/Training Program
DX: S16.1XXA Strain of muscle, fascia and tendon at neck level, initial encounter (principal); G89.29 Other chronic pain; E78.5 Hyperlipidemia, unspecified; S70.01XA Contusion of right hip, initial encounter; I10 Essential (primary) hypertension; M54.9 Dorsalgia, unspecified; V89.2XXA Person injured in unspecified motor-vehicle accident, traffic, initial encounter
CPT/HCPCS: 99284

== ENCOUNTER → 2022-06-18 | Outpatient (CLI) | payer MEDICAID, SELFPAY ==
--- NOTE | 2022-06-18 10:30 | RAD_ITS ---
INDICATION: HIP PAIN EXAMINATION/TECHNIQUE: X-RAY - BILATERAL XR Hips Bilateral with Pelvis when performed; 2 Views COMPARISON: None. FINDINGS: PELVIC BONES: No displaced fracture, destructive or sclerotic lesions. Note that overlapping bowel shadows may however obscure fine detail. Sacroiliac joints are unremarkable. No widening of the pubic symphysis. HIPS: The articular structures are unremarkable. No displaced fracture seen in this frontal view. SOFT TISSUES: No soft tissue swelling or gas. RAD/Hips B/L min 2 views w/ Pelvis IMPRESSION: No evidence of displaced pelvic or hip fracture. Electronically Signed: Cecilio Art DO at 22:05 EST Reading Location ID and State: [facility] / [place] Tel [phone], Service support ,
== END | disposition home or self-care (01) ==
PROVIDERS: PCP Family Medicine
DX: M25.551 Pain in right hip (principal); M25.552 Pain in left hip
CPT/HCPCS: 73521

== ENCOUNTER → 2022-07-09 | Outpatient (CLI) | payer MEDICAID, SELFPAY ==
[2022-07-09 15:37] LABS: ALB/GLOB Ratio 0.9 RATIO (0.9-2.4); AST(SGOT) 22 U/L (15-37); Alanine Aminotransfer ALT/SGPT 94 U/L (13-56); Albumin, Serum 3.9 g/dL (3.2-5.0); Alkaline Phosphatase 148 U/L (45-117); Anion Gap 7 (5-15); BUN 11 mg/dL (7-18); BUN/Creat Ratio 10.4 RATIO (10-20); Calcium,Total 9.8 mg/dL (8.5-10.1); Chloride 108 mmol/L (98-107); Creatinine, Serum 1.06 mg/dL (0.55-1.02); EST Glomerular Filtration Rate 61 mL/min (>60); Est Glom Filt Rate - Afr Amer 73 mL/min (>60); Globulin 4.2 g/dL (2.2-4.2); Glucose 89 mg/dL (74-106); Potassium 3.4 mmol/L (3.5-5.1); Protein, Total 8.1 g/dL (6.4-8.2); Sodium Level 140 mmol/L (136-145)
== END | disposition home or self-care (01) ==
PROVIDERS: PCP Family Medicine; Referring Provider Nurse Practitioner Family; Visit Provider Nurse Practitioner Family
DX: Z86.39 Personal history of other endocrine, nutritional and metabolic disease (principal)
CPT/HCPCS: 36415; 80053

== ENCOUNTER 2022-07-22 08:34 | Emergency (ER) | payer MEDICAID, SELFPAY ==
[2022-07-22 08:34] VITALS: BP 140/95
[2022-07-22 08:35] VITALS: PULSE 119; RESP 16; TEMP 36.2; O2SAT 99; BMI 24.2
--- NOTE | 2022-07-22 09:23 | RAD_ITS ---
STUDY: X-RAY - LEFT SHOULDER REASON FOR EXAM: Female, 42 years old. Injury -- include axillary TECHNIQUE: 4 view(s) of the shoulder. COMPARISON: None. FINDINGS: Normal glenohumeral articulation. Normal acromioclavicular joint. Normal acromion. Normal humeral head and visualized proximal humerus. The soft tissue structures are unremarkable. Normal visualized pulmonary apex. RAD/Shoulder min 2 Views IMPRESSION: Normal x-ray examination of the shoulder. Electronically Signed: Francisco Lopez MD at 11:45 EST ,
--- NOTE | 2022-07-22 09:30 | EDS_ITS ---
HPI History of Present Illness Chief Complaint: Upper Extremity Injury Informant: patient Occured/Mechanism Mechanism/Context: Yes direct blow and Yes fall Comment: Tripped and fell against the corner of a chair Onset/Context/Timing Onset: Yesterday Context: Sudden Onset Timing: Continuous Quality of Pain: Aching Location: Left shoulder and left upper chest Current Severity: Severe Maximum Severity: Severe Worsened by: Deep breathing, movement of torso, movement of left shoulder Relieved by: Remaining still Associated Symptoms Associated Symptoms: Positive for Loss of Funtion (Left shoulder due to pain); Negative for Parasthesia or Weakness Narrative Narrative: Her left upper chest and shoulder yesterday, she tripped and fell into a chair hitting it anteriorly. She went to urgent care and was sent here because she is hysterical in pain and they did not do any x-rays. She is in pain management for chronic low back pain, and has a spinal stimulator as well as prescription medications. She denies any other injuries. [facility] Medical History Abdominal pain Abdominal pain Anxiety Arthritis Back pain Bipolar disorder Blackout Chest pain Chronic pain Depression Diarrhea DVT (deep venous thrombosis) Fibromyalgia Gastric reflux Gastroparalysis GERD (gastroesophageal reflux disease) Hiatal hernia High cholesterol History of edema History of IBS History of steroid therapy History of stress test HLD (hyperlipidemia) HTN (hypertension) IBS (irritable bowel syndrome) Ileus Injury of back Insomnia Kidney stones Kidney stones Major depressive disorder, recurrent, unspecified Migraine Opioid use disorder panic Personality disorder, unspecified Shortness of breath on exertion Smoker Ureteral calculus, right UTI (urinary tract infection) Vomiting Walker as ambulation aid Wears dentures Home Medications medroxyprogesterone 150 mg/mL intramuscular syringe 150 mg IM .[id number] Check with primary doctor 03/09/15 [History Last Taken 04/05/21] gabapentin 300 mg capsule 300 mg PO BID neuropathy 08/09/16 [History Last Taken 04/05/21] nortriptyline 50 mg capsule (Pamelor) 100 mg PO QHS depression 10/13/17 [History Last Taken 04/05/21] trazodone 100 mg tablet 200 mg PO QHS Check with primary doctor 11/12/18 [History Last Taken 04/04/21] topiramate 25 mg tablet 25 mg PO DAILY Check with primary doctor 11/24/18 [History Last Taken 04/05/21] duloxetine 30 mg capsule,delayed release (Cymbalta) 120 mg PO DAILY Check with primary doctor 06/02/19 [History Last Taken 12/01/19] propranolol 20 mg tablet 20 mg PO QHS Check with primary doctor 05/03/20 [History Last Taken 04/05/21] hydroxyzine HCl 100 mg tablet 100 mg PO QHS Check with primary doctor 11/27/20 [History Last Taken 04/05/21] lamotrigine 100 mg tablet 100 mg PO DAILY Check with primary doctor 11/27/20 [History Last Taken Unknown] temazepam 15 mg capsule 15 mg PO QHS Check with primary doctor 11/27/20 [History Last Taken Unknown] hydrocodone-acetaminophen 5-325mg 5mg-325mg 1 tab PO Q6H PRN pain 7 days #20 tabs 04/06/21 [Rx Last Taken Unknown] omeprazole 40 mg capsule,delayed release 40 mg PO DAILY Check with primary doctor 04/06/21 [History Last Taken 04/05/21] ondansetron HCl 4 mg tablet (Zofran) 4 mg PO Q6H PRN nausea and vomiting #20 tabs 04/06/21 [Rx Last Taken Unknown] potassium citrate 10 mEq (1,080 mg) tablet,extended release 20 meq PO TID Check with primary doctor #180 tabs 04/06/21 [Rx Last Taken Unknown] hydrocodone-acetaminophen 5-325mg 5mg-325mg 1 tab PO Q6H PRN pain 3 days #10 tabs 04/15/21 [Rx Last Taken Unknown] ondansetron 4 mg disintegrating tablet 4 mg PO Q8H PRN nausea and vomiting #10 tabs 04/15/21 [Rx Last Taken Unknown] ondansetron HCl 4 mg tablet (Zofran) 4 mg PO Q8H PRN nausea and vomiting #20 tabs 04/28/21 [Rx Last Taken Unknown] oxycodone-acetaminophen 5 mg-325 mg tablet 1 tab PO Q6H PRN PRN Pain 2 days #10 TABLETS 07/29/21 [Rx Last Taken Unknown] hydrocodone-acetaminophen 5-325mg 5mg-325mg 1 tab PO Q4H PRN PRN Pain 2 days #10 TABLETS 08/13/21 [Rx Last Taken Unknown] hydrocodone-acetaminophen 5-325mg 5mg-325mg 1 tab PO Q6H PRN pain 3 days #10 tabs 08/28/21 [Rx Last Taken Unknown] Allergy/AdvReac Type Severity Reaction Status Date / Time aspirin AdvReac Nausea Verified 07/22/22 08:36 Family History Father Hypertension Heart disease Brother CAD (coronary artery disease) Myocardial infarction Mother Heart disease Myocardial infarction Surgical History History of cholecystectomy History of esophagogastroduodenoscopy (EGD) History of repair of hiatal hernia S/P laparoscopic cholecystectomy Social History household members: children Smoking Status: Current every day smoker tobacco type: cigarettes alcohol intake: never substance use type: does not use ROS ROS ED Constitutional Constitutional ED: Denies chills or fever(s) Cardiovascular Cardiovascular: Reports chest pain Respiratory/Chest Respiratory/Chest: Reports dyspnea; Denies cough Musculoskeletal Musculoskeletal: Reports back pain and extremity pain; Denies neck pain Integumentary Denies Abrasions, rash or wounds Neurologic Neurologic: Denies headache(s), paresthesias or weakness Psychiatric Psychiatric: Reports anxiety; Denies suicidal thoughts EXAM Physical Exam Const Vital Signs: 07/22/22 08:35 07/22/22 08:34 Temperature 97.1 F L Temperature Source Temporal Pulse Rate 119 H Respiratory Rate 16 Blood Pressure 140/95 H Blood Pressure Mean 110 Pulse Ox 99 Oxygen Delivery Method Room Air Positive well nourished and well developed General Appearance ED: well developed and NAD Neck full ROM and supple Chest Wall inspection of chest normal Chest Narrative: Tender left upper chest without crepitance, step-off, obvious signs of trauma, or subcutaneous emphysema. Most of this is below the clavicle but the clavicle was included as well, there are no deformities there. Nontender at the sternum. Resp normal respiratory effort and clear to auscultation bilaterally Resp Narrative: Equal breath sounds bilaterally. Patient breathing shallow so as to keep from splinting with deep inspiration. Cardio regular rate, regular rhythm and no murmurs GI non-tender and non-distended Back/Spine normal ROM and normal to inspection Extremity Extremity Narrative: Limited range of motion left shoulder due to pain but able to abduct to about 30 degrees at least. No deformity. Diffuse tenderness in the shoulder girdle, everywhere I press the patient states yes but not objectively tender like she is in the left upper chest and clavicle. There is no deformity or swelling at the acromioclavicular joint. Inspection of the entire area is normal. Able to move the left elbow and wrist and fingers without any difficulty, intact 2+/4 radial pulse. Other 4 extremities move without difficulty. Neuro oriented x3, no focal motor deficits and no sensory deficits noted Sensorium / Orientation: alert Psych Mood & Affect: anxious and tearful Skin no wounds Rashes: no rashes MDM MDM MDM Narrative Medical decision making narrative: 5 view x-ray series of the left ribs including PA chest normal on my interpretation showing no sign of a rib fracture, clavicle fracture, or pneumothorax. 5 view x-ray series of the left shoulder including an axillary view also normal on my interpretation showing no signs of a fracture or dislocation. Patient was initially treated with morphine. She refused to go to x-ray until she received the pain medication, which I understood, as I did not want her to be able to move her shoulder better so we can get an axillary view which was obtained. Subsequently during a very busy shift, she was demanding more pain medication, and even within 15 minutes of receiving the morphine, and then ended up telling nursing that this was poor customer service, etc. I did see her, she appeared very comfortable unlike prior, and I did offer her another injection of pain medication but she cannot get any prescription since she is under contract with pain management. She understands that. I offered her a sling for her discomfort in her left shoulder to use as needed, we discussed coming out of the sling at least once or twice daily to do gentle range of motion exercises to prevent her rotator cuff from getting frozen, and follow-up advised. I suspect this was mostly a chest wall contusion with shoulder girdle muscular involvement. Discharge Plan Triage Chief Complaint: Upper Extremity Injury ED Provider: Brandon Lorenz Dx/Rx/DC Orders Clinical Impression: Chest wall contusion, Fall from slip, trip, or stumble Instructions: ED Chest Wall Contusion Prescriptions: No Action medroxyprogesterone 150 MG/ML syringe 150 mg IM .[id number] Label Comments: control gabapentin 300 MG capsule 300 mg PO BID Label Comments: back pain nortriptyline [Pamelor] 50 MG capsule 100 mg PO QHS trazodone 100 MG tablet 200 mg PO QHS topiramate 25 tablet 25 mg PO DAILY duloxetine [Cymbalta] 30 MG capsule 120 mg PO DAILY Rx Instructions: take (3) 30mg capsules per day to make 90mg dose propranolol 20 MG tablet 20 mg PO QHS temazepam 15 mg capsule 15 mg PO QHS hydroxyzine HCl 100 mg Tablet 100 mg PO QHS lamotrigine 100 mg tablet 100 mg PO DAILY omeprazole 40 MG capsule,delayed release(DR/EC) 40 mg PO DAILY hydrocodone-acetaminophen 5-325 mg tablet 1 tab PO Q6H PRN (Reason: pain) 7 Days Qty: 20 0RF potassium citrate 10 mEq (1,080 mg) Tablet Extended Release 20 meq PO TID Qty: 180 0RF ondansetron HCl [Zofran] 4 mg tablet 4 mg PO Q6H PRN (Reason: nausea and vomiting) Qty: 20 0RF hydrocodone-acetaminophen 5-325 mg tablet 1 tab PO Q6H PRN (Reason: pain) 3 Days Qty: 10 0RF ondansetron 4 mg tablet,disintegrating 4 mg PO Q8H PRN (Reason: nausea and vomiting) Qty: 10 0RF ondansetron HCl [Zofran] 4 mg tablet 4 mg PO Q8H PRN (Reason: nausea and vomiting) Qty: 20 0RF oxycodone-acetaminophen [oxycodone-acetaminophen] 1 TABLET tablet 1 tab PO Q6H PRN PRN (Reason: Pain) 2 Days Qty: 10 0RF hydrocodone-acetaminophen [hydrocodone-acetaminophen] 1 TABLET tablet 1 tab PO Q4H PRN PRN (Reason: Pain) 2 Days Qty: 10 0RF hydrocodone-acetaminophen 5-325 mg tablet 1 tab PO Q6H PRN (Reason: pain) 3 Days Qty: 10 0RF Primary Care Provider: Tom Giraldo Referrals: Tom Giraldo MD [Primary Care Provider] - 1 Week if not improving (or return to ER for reevaluation for new symptoms you are concerned about) Disposition Disposition: Home, Self Care
[2022-07-22] MEDS: Morphine 4 MG/ML Syringe IM ×2 (10:20→11:47)
--- NOTE | 2022-07-22 10:50 | RAD_ITS ---
STUDY: X-RAY - UNILATERAL RIBS ( LEFT ) WITH CHEST REASON FOR EXAM: Female, 42 years old. Injury TECHNIQUE - RIBS: 4 view(s) of the ribs. TECHNIQUE - CHEST: Single PA view of the chest. COMPARISON: None. FINDINGS - RIBS: Normal visualized ribs without a demonstrated fracture. FINDINGS - CHEST: Mild increased markings at the left lung base suggestive of atelectasis. There is no demonstrated pleural abnormality. Normal size heart. Normal mediastinum and sebastián. Normal visualized pulmonary arteries. Normal visualized aortic arch and descending thoracic aorta. Normal visualized thoracic spine. Normal visualized ribs, clavicles, and shoulders. Electrodes from a TENS unit are seen. The tip is at the T7 level. There is no demonstrated abnormality of the visualized soft tissue structures of the upper abdomen. RAD/Ribs Uni Min 3V w/PA Chest IMPRESSION: RIBS: Normal x-ray examination of the ribs. CHEST: Mild increased markings at the left lung base suggestive of atelectasis. Electronically Signed: Francisco Lopez MD at 11:45 EST ,
--- NOTE | 2022-07-22 11:23 | ED.RN ---
pt continuously international coordinator light i need my nurse immediately. pt demanding pain meds. provider aware.
--- NOTE | 2022-07-22 11:26 | EKG12_ITS ---
Test Reason : CP Blood Pressure : / mmHG Vent. Rate : 095 BPM Atrial Rate : 095 BPM P-R Int : 144 ms QRS Dur : 094 ms QT Int : 350 ms P-R-T Axes : 073 055 054 degrees QTc Int : 439 ms Normal sinus rhythm Normal ECG Confirmed by JESSICA LAYTON, DIPAK ([id number]), makeup editor KYLAH DE LEON ([id number]) on 07/24/2022 9:04:33 AM Referred By: LINH Confirmed By:DIPAK LOPEZ MD
--- NOTE | 2022-07-22 11:30 | ED.RN ---
PATIENT CONTINUOUSLY PRESSES CALL LIGHT, THIS NURSE HAS BEEN IN THE ROOM MULTIPLE TIMES MEDICATING ONCE, WELL PATIENT REQUESTING PAIN MEDICATION MULTIPLE TIMES WITHIN SHORT TIME FRAMES. PT RESTING IN BED IN NO OBVIOUS DISTRESS DURING EACH ENCOUNTER. AT ONE POINT PATIENT CAME OUTSIDE OF THE ROOM GRABBING THIS NURSE PRIOR TO THIS NURSE GOING INTO A DIFFERENT PT ROOM DEMANDING TO BE GIVEN MEDICATION. THIS NURSE DID NOTIFY DR. ZUÑIGA THE REQUEST AND HE WAS AWAITING READINGS OF THE XRAYS, PT UPDATED ON THAT. THIS NURSE HAD 3 CONVERSATIONS REGARDING ACUITY OF PATIENTS AT TIME, WELL DR. ZUÑIGA AWARE OF PATIENT REQUEST. PT VOCALIZED TO ME THIS IS HORRIBLE CUSTOMER SERVICE, AGAIN REITERATED THAT THE CALL LIGHT NEEDS TO BE USED IN THE WAY INTENDED AND THAT WE ARE ALL AWARE OF THE REQUEST FOR PAIN MEDICATIONS. DR. ZUÑIGA NOTIFIED OF PATIENT BEHAVIOR TOWARDS STAFF AT THIS POINT.
--- NOTE | 2022-07-22 11:40 | ED.RN ---
hro aware that pt needs someone to drive her home d/t receiving morphine.
--- NOTE | 2022-07-22 11:55 | ED.RN ---
THIS RN INTO DISCHARGE PT.. DISCUSSION ABOUT PT BEHAVIOR DURING VISIT. PT STATES WELL SOMEONE SHOULD BE COMING BACK IN, THAT DR WAS JUST RUSHED. PT AWARE BUSYNESS OF DEPARTMENT. PT AWARE NO PRESCRIPTIONS FOR HOME. PT STATES TO THIS RN I BET YOU COULD TALK THE DR INTO WRITING A SCRIPT.. THIS RN STATES I AM NOT WILLING TO ASK IF YOU HAVE HAD THAT DISCUSSION. PT STATES MORPHINE DOES NOT WORK BUT IS WILLING TO TAKE SECOND SHOT. PT STATES FENTANYL IS WHAT I WANT. PT AWARE THAT SHOT WAS ALREADY GIVEN AND IT WAS NOT AN OPTION FOR ANOTHER.
== END 2022-07-22 12:01 | disposition home or self-care (01) ==
PROVIDERS: Emergency Provider Emergency Medicine; PCP Family Medicine; Visit Provider Emergency Medicine
DX: S20.20XA Contusion of thorax, unspecified, initial encounter (principal); E78.00 Pure hypercholesterolemia, unspecified; I10 Essential (primary) hypertension; R07.9 Chest pain, unspecified; F17.210 Nicotine dependence, cigarettes, uncomplicated; W01.198A Fall on same level from slipping, tripping and stumbling with subsequent striking against other object, initial encounter
CPT/HCPCS: 71101; 73030; 93005; 96372; 99283

== ENCOUNTER 2022-08-02 18:36 | Emergency (ER) | payer MEDICAID, SELFPAY ==
[2022-08-02 18:37] VITALS: BP 153/77; PULSE 82; RESP 24; TEMP 35.6; O2SAT 100; BMI 24.6
--- NOTE | 2022-08-02 19:13 | EX.ED.VIS.PS ---
HPI HPI - Psych History of Present Illness Chief Complaint: Anxiety Narrative Narrative: 42-year-old female presenting with anxiety and chest pain. She is sobbing and stating that this started acutely. She states she was at [employer] today with her son and her father and when she got home she felt like her family was going to leave her. She does not understand why. She states is making her very anxious. She tried 2 doses of 1 mg Ativan but still is not calling down. She called the counseling center where she gets her psychiatric care and she was referred to the ER because she was having chest pain stating that her heart hurts. She is not having lightheadedness, dizziness. No fevers, chills, cough. No nausea or vomiting. Does not have any cardiac history. No history of DVT/PE and no risk factors. She does state that her Wellbutrin was supposed to be increased yesterday that she picked this up today. States her new dose is 450. She has not taken this yet. [facility] Medical History Abdominal pain Abdominal pain Anxiety Arthritis Back pain Bipolar disorder Blackout Chest pain Chronic pain Depression Diarrhea DVT (deep venous thrombosis) Fibromyalgia Gastric reflux Gastroparalysis GERD (gastroesophageal reflux disease) Hiatal hernia High cholesterol History of edema History of IBS History of steroid therapy History of stress test HLD (hyperlipidemia) HTN (hypertension) IBS (irritable bowel syndrome) Ileus Injury of back Insomnia Kidney stones Kidney stones Major depressive disorder, recurrent, unspecified Migraine Opioid use disorder panic Personality disorder, unspecified Shortness of breath on exertion Smoker Ureteral calculus, right UTI (urinary tract infection) Vomiting Walker as ambulation aid Wears dentures Home Medications gabapentin 300 mg capsule 300 mg PO TID neuropathy 08/09/16 [History Last Taken 04/05/21] nortriptyline 50 mg capsule (Pamelor) 100 mg PO QHS depression 10/13/17 [History Last Taken 04/05/21] topiramate 25 mg tablet 25 mg PO DAILY Check with primary doctor 11/24/18 [History Last Taken 04/05/21] duloxetine 30 mg capsule,delayed release (Cymbalta) 60 mg PO DAILY Check with primary doctor 06/02/19 [History Last Taken 12/01/19] propranolol 20 mg tablet 20 mg PO QHS Check with primary doctor 05/03/20 [History Last Taken 04/05/21] hydroxyzine HCl 100 mg tablet 50 mg PO BID Check with primary doctor 11/27/20 [History Last Taken 04/05/21] omeprazole 40 mg capsule,delayed release 40 mg PO DAILY Check with primary doctor 04/06/21 [History Last Taken 04/05/21] ondansetron 4 mg disintegrating tablet 4 mg PO Q8H PRN nausea and vomiting #10 tabs 04/15/21 [Rx Last Taken Unknown] lamotrigine 200 mg tablet 200 mg PO DAILY 08/02/22 [History Last Taken Unknown] lorazepam 1 mg tablet 1 mg PO BID 08/02/22 [History Last Taken Unknown] nabumetone 750 mg tablet 750 mg PO BID 08/02/22 [History Last Taken Unknown] potassium citrate 10 mEq (1,080 mg) tablet,extended release 20 meq PO 4X/DAY Check with primary doctor 08/02/22 [History Last Taken Unknown] risperidone 0.5 mg tablet 0.5 mg PO TID 08/02/22 [History Last Taken Unknown] spironolactone 25 mg tablet 25 mg PO DAILY 08/02/22 [History Last Taken Unknown] tizanidine 4 mg tablet 4 mg PO TID PRN PRN Muscle Pain 08/02/22 [History Last Taken Unknown] Allergy/AdvReac Type Severity Reaction Status Date / Time aspirin AdvReac Nausea Verified 08/02/22 18:37 Family History Father Hypertension Heart disease Brother CAD (coronary artery disease) Myocardial infarction Mother Heart disease Myocardial infarction Surgical History History of cholecystectomy History of esophagogastroduodenoscopy (EGD) History of repair of hiatal hernia S/P laparoscopic cholecystectomy Social History household members: children Smoking Status: Current every day smoker tobacco type: cigarettes alcohol intake: never substance use type: does not use ROS ROS ED Constitutional Constitutional ED: Denies chills or fever(s) Eyes Eyes: Denies change in vision or diplopia ENT ENT ED: Denies rhinorrhea or sore throat Cardiovascular Cardiovascular: Reports chest pain Respiratory/Chest Respiratory/Chest: Denies cough or dyspnea Gastrointestinal Gastrointestinal: Denies abdominal pain, nausea or vomiting Genitourinary Genitourinary ED: Denies dysuria or hematuria Musculoskeletal Musculoskeletal: Denies arthralgias Integumentary Denies abscess Psychiatric Psychiatric: Reports anxiety and depression; Denies suicidal ideation or suicidal thoughts EXAM Physical Exam Const Vital Signs: 08/02/22 18:37 08/02/22 19:39 08/02/22 20:37 Temperature 96.1 F L Temperature Source Temporal Pulse Rate 82 72 Respiratory Rate 24 H 14 Blood Pressure 153/77 H 108/82 H Blood Pressure Mean 102 90 Pulse Ox 100 98 97 Oxygen Delivery Method Room Air Room Air Room Air 08/02/22 21:11 Temperature Temperature Source Pulse Rate 95 Respiratory Rate 16 Blood Pressure 103/78 Blood Pressure Mean 86 Pulse Ox 96 Oxygen Delivery Method Room Air Positive well nourished and unkempt General Appearance ED: unkempt, irritable and NAD; Negative for pallor HEENT Reports moist mucous membranes normocephalic and atraumatic Neck no lymphadenopathy Resp normal respiratory effort and clear to auscultation bilaterally Cardio Rate: regular rate Rhythm: regular rhythm Neuro oriented x3 and CN's II-XII intact bilaterally Psych Appearance: unkempt Attitude: bizarre Speech: loud Mood & Affect: irritable, sad, tearful and fearful Thought Content: No suicidality and No homicidality Memory / Cognition: memory grossly intact Insight: poor Judgement: poor Skin General Skin Exam: Negative for jaundice or pallor MDM MDM MDM Narrative Medical decision making narrative: Patient presenting with anxiety which is severe she is crying and sobbing in the room. She reported to the counseling center that she was having chest pain which does happen with her anxiety. She feels as if her father and her son are going to leave her. She is not sure why. She is not homicidal or suicidal. She does not appear to manic. Patient given 1 mg of Ativan to calm her down. I did speak with the counseling center because she told me that the counseling center wanted to call the police to get her. They stated that they did not want to call the police and that the patient insisted that they were trying to call the police. The counseling center stated that they were trying to call her ambulance because she was having chest pain and panicking. Differential includes but is not limited to ACS, pneumonia, pneumothorax, muscle strain, costochondritis, anxiety. Unlikely to be ACS and most likely to be anxiety but I did obtain a cardiac work-up her EKG is normal sinus rhythm with a ventricular rate of 72 bpm without sign of ischemic change or dysrhythmia. High-sensitivity troponin 4. She reports symptom for most of the day and I do not believe she needs a delta troponin. Chest x-ray shows no evidence of pneumonia, pneumothorax. I have a low clinical suspicion for PE. CBC shows a white blood cell count 11.4. Hemoglobin hematocrit are stable. Platelets are normal. Renal function electrolytes within normal limits. EtOH less than 3. Urine drug screen positive for MDMA this could be her Wellbutrin. I did speak with the crisis counselor/the counseling center and they did not need to see her again tonight. They recommend she goes home and takes her butyrin 450 mg as provided. I discharge patient requested something for pain and nausea she can go to sleep. I gave her a dose of Toradol and Zofran. Patient is discharged home in stable condition. Impression: 1. Chest pain 2. Anxiety attack Lab Data Labs: Laboratory Results - last 24 hr 08/02/22 08/02/22 08/02/22 19:30 19:30 19:30 WBC 11.4 H RBC 5.33 Hgb 15.9 H Hct 48.7 H MCV 91.4 MCH 29.8 MCHC 32.6 RDW Std Deviation 48.1 H RDW Coeff of Raquel 14.4 Plt Count 411 MPV 9.2 Immature Gran % (Auto) 1.100 H Neut % (Auto) 69.1 Lymph % (Auto) 20.6 [place] % (Auto) 6.7 Eos % (Auto) 1.2 Baso % (Auto) 1.3 H Absolute Neuts (auto) 7.9 H Absolute Lymphs (auto) 2.34 Nucleated RBC % 0 Sodium 142 Potassium 4.5 Chloride 109 H Carbon Dioxide 27.0 Anion Gap 6 BUN 11 Creatinine 0.99 Estim Creat Clear Calc 80.87 Est GFR (MDRD) Af Amer 79 Est GFR (MDRD) Non-Af 65 BUN/Creatinine Ratio 11.1 Glucose 106 Calcium 9.6 Troponin I High Sens 4 Urine Opiates Screen Urine Methadone Screen Ur Barbiturates Screen Ur Phencyclidine Scrn Ur Amphetamines Screen MDMA (Ecstasy) Screen U Benzodiazepines Scrn Urine Cocaine Screen U Cannabinoids Screen Ur Drug Screen Comment Ethyl Alcohol < 3.0 08/02/22 20:10 WBC RBC Hgb Hct MCV MCH MCHC RDW Std Deviation RDW Coeff of Raquel Plt Count MPV Immature Gran % (Auto) Neut % (Auto) Lymph % (Auto) [place] % (Auto) Eos % (Auto) Baso % (Auto) Absolute Neuts (auto) Absolute Lymphs (auto) Nucleated RBC % Sodium Potassium Chloride Carbon Dioxide Anion Gap BUN Creatinine Estim Creat Clear Calc Est GFR (MDRD) Af Amer Est GFR (MDRD) Non-Af BUN/Creatinine Ratio Glucose Calcium Troponin I High Sens Urine Opiates Screen NEGATIVE Urine Methadone Screen NEGATIVE Ur Barbiturates Screen NEGATIVE Ur Phencyclidine Scrn NEGATIVE Ur Amphetamines Screen NEGATIVE MDMA (Ecstasy) Screen POSITIVE H U Benzodiazepines Scrn NEGATIVE Urine Cocaine Screen NEGATIVE U Cannabinoids Screen NEGATIVE Ur Drug Screen Comment Ethyl Alcohol Radiography Diagnostic Testing: Clinical Impression(s) from Imaging Studies Chest X-Ray 08/02/22 19:50 IMPRESSION: No acute findings in the chest. Electronically Signed: Marky Ram MD at 20:18 EDT , Discharge Plan Triage Chief Complaint: Anxiety ED Provider: Nadir Yap Dx/Rx/DC Orders Instructions: ED Anxiety Reaction, ED Chest Pain, Noncardiac Prescriptions: No Action gabapentin 300 MG capsule 300 mg PO TID Label Comments: back pain nortriptyline [Pamelor] 50 MG capsule 100 mg PO QHS topiramate 25 tablet 25 mg PO DAILY duloxetine [Cymbalta] 30 MG capsule 60 mg PO DAILY Rx Instructions: take (3) 30mg capsules per day to make 90mg dose propranolol 20 MG tablet 20 mg PO QHS hydroxyzine HCl 100 mg Tablet 50 mg PO BID omeprazole 40 MG capsule,delayed release(DR/EC) 40 mg PO DAILY ondansetron 4 mg tablet,disintegrating 4 mg PO Q8H PRN (Reason: nausea and vomiting) Qty: 10 0RF lamotrigine 200 mg tablet 200 mg PO DAILY nabumetone 750 mg tablet 750 mg PO BID tizanidine 4 mg tablet 4 mg PO TID PRN PRN (Reason: Muscle Pain) spironolactone 25 mg tablet 25 mg PO DAILY lorazepam 1 mg tablet 1 mg PO BID risperidone 0.5 mg tablet 0.5 mg PO TID potassium citrate 10 mEq (1,080 mg) tablet extended release 20 meq PO 4X/DAY Primary Care Provider: Tom Giraldo Referrals: Tom Giraldo MD [Primary Care Provider] - Disposition Disposition: Home, Self Care
--- NOTE | 2022-08-02 19:15 | EKG12_ITS ---
Test Reason : Blood Pressure : / mmHG Vent. Rate : 072 BPM Atrial Rate : 072 BPM P-R Int : 158 ms QRS Dur : 072 ms QT Int : 368 ms P-R-T Axes : 043 082 061 degrees QTc Int : 402 ms Normal sinus rhythm Septal infarct , age undetermined Abnormal ECG Confirmed by ISAI LAYTON, RETA ([id number]), commissioning editor KYLAH DE LEON ([id number]) on 08/04/2022 9:49:03 AM Referred By: Confirmed By:JENISE ALEX MD
[2022-08-02 19:39] VITALS: O2SAT 98
[2022-08-02 19:43] LABS: Absolute Lymphocyte Count 2.34 X10^3/uL (0.83-4.51); Absolute Neutrophil Count 7.9 X10^3/uL (2.0-7.7); Basophil# 0.15 X10^3/uL; Basophil% 1.3 % (0-1); Eosinophil# 0.14 X10^3/uL; Eosinophils% 1.2 % (0-5); Hematocrit 48.7 % (37-47); Hemoglobin 15.9 g/dL (12.0-15.0); Lymphocyte # 2.34 X10^3/ul (0.83-4.51); Lymphocyte % 20.6 % (19-41); Mean Corp Hgb Conc 32.6 g/dL (32-36); Mean Corpuscular Hgb 29.8 pg (27.0-32.0); Mean Corpuscular Volume 91.4 fL (81-99); Mean Platelet Vol. 9.2 fl (6.2-12.0); Monocyte# 0.76 X10^3/uL; Monocyte% 6.7 % (0-10); NRBC Flagged by Analyzer 0 % (0-5); Neutrophil # 7.85 X10^3/uL (2.7-7.7); Neutrophil % 69.1 % (47-70); Platelet Count 411 K/mm3 (150-450); RBC Distribution Width CV 14.4 % (11.6-14.6); RBC Distribution Width SD 48.1 fl (35.1-43.9); Red Blood Count 5.33 M/mm3 (4.2-5.4); White Blood Count 11.4 K/mm3 (4.4-11.0)
[2022-08-02] MEDS: LORazepam 2 MG/ML Syringe 1 MG IV (19:46)
--- NOTE | 2022-08-02 19:50 | RAD_ITS ---
EXAM: XR CHEST, 1 VIEW CLINICAL INDICATION: chest pain TECHNIQUE: Frontal view of the chest. This report was created using [employer] report generation technology. COMPARISON: 07.22.22 FINDINGS: LUNGS AND PLEURAL SPACES: Unremarkable. No consolidation or edema. No pneumothorax. No effusion. HEART: Unremarkable. Cardiac silhouette not enlarged. MEDIASTINUM: Central airways and mediastinal contour are unremarkable. BONES/JOINTS: Unremarkable. SOFT TISSUES: Unremarkable. TUBES, LINES AND DEVICES: Metallic leads in the spinal canal may suggest spinal stimulator leads. RAD/Chest 1 View (Portable) IMPRESSION: No acute findings in the chest. Electronically Signed: Marky Ram MD at 20:18 EDT ,
[2022-08-02 20:02] LABS: Anion Gap 6 (5-15); BUN 11 mg/dL (7-18); BUN/Creat Ratio 11.1 RATIO (10-20); Calcium,Total 9.6 mg/dL (8.5-10.1); Chloride 109 mmol/L (98-107); Creatinine, Serum 0.99 mg/dL (0.55-1.02); EST Glomerular Filtration Rate 65 mL/min (>60); Est Glom Filt Rate - Afr Amer 79 mL/min (>60); Estimated Creatinine Clearance 80.87 ml/min; Glucose 106 mg/dL (74-106); Potassium 4.5 mmol/L (3.5-5.1); Sodium Level 142 mmol/L (136-145); Troponin-I HS (w/2H Reflex) 4 pg/mL (3.0-54.0)
[2022-08-02 20:25] LABS: Alcohol, Blood (Medical)-Serum < 3.0 mg/dL
[2022-08-02 20:37] VITALS: BP 108/82; PULSE 72; RESP 14; O2SAT 97
[2022-08-02 20:38] LABS: Amphetamine Urine VISTA NEGATIVE (<1000 ng/mL); Barbiturate Urine VISTA NEGATIVE (< 200 ng/mL); Benzodiazepine Urine VISTA NEGATIVE (< 200 ng/mL); Cocaine Urine VISTA NEGATIVE (< 300 ng/mL); Ecstacy Urine VISTA POSITIVE (< 500 ng/mL); Methadone Urine VISTA NEGATIVE (< 300 ng/mL); PCP Urine VISTA NEGATIVE (< 25 ng/mL); THC Urine VISTA NEGATIVE (< 50 ng/mL); Vista UDS pH Range 4
[2022-08-02] MEDS: Ketorolac 15 MG/ML Vial IV (21:07)
[2022-08-02] MEDS: Ondansetron 4 MG/2 ML Vial IV (21:07)
[2022-08-02 21:11] VITALS: BP 103/78; PULSE 95; RESP 16; O2SAT 96
[2022-08-02 21:40] LABS: Reflex Troponin-HS? (from REC) Y
== END 2022-08-02 21:25 | disposition home or self-care (01) ==
PROVIDERS: Emergency Provider Student in an Organized Health Care Education/Training Program; PCP Family Medicine; Visit Provider Student in an Organized Health Care Education/Training Program
DX: F41.9 Anxiety disorder, unspecified (principal); R07.9 Chest pain, unspecified; I10 Essential (primary) hypertension; E78.00 Pure hypercholesterolemia, unspecified
CPT/HCPCS: 71045; 80048; 80307; 82077; 84484; 85025; 93005; 96374; 96375; 99284; A4216; J2405

== ENCOUNTER 2022-08-06 11:20 | Emergency (ER) | payer MEDICAID, SELFPAY ==
[2022-08-06 11:21] VITALS: BP 138/103; PULSE 129; RESP 22; TEMP 36.6; O2SAT 99; BMI 24.2
[2022-08-06 13:25] VITALS: BP 145/100; PULSE 102; RESP 18; O2SAT 100
--- NOTE | 2022-08-06 13:26 | EDS_ITS ---
HPI History of Present Illness Chief Complaint: Abd Pain Narrative Narrative: 42-year-old female here with abdominal pain and vomiting since Thursday. The patient further states she has had several days of intractable nausea vomiting and diffuse abdominal pain. Endorses her gastroparesis. Notes history of multiple abdominal surgeries. Notes diarrhea recently and last bowel was 2 days ago. No fever. No chest pain or shortness of breath. No trouble with urination. She states her symptoms have been constant, severe without alleviating factors. States has tried Zofran and Phenergan at home without relief. PFSH PFS Medical History Abdominal pain Abdominal pain Anxiety Arthritis Back pain Bipolar disorder Blackout Chest pain Chronic pain Depression Diarrhea DVT (deep venous thrombosis) Fibromyalgia Gastric reflux Gastroparalysis GERD (gastroesophageal reflux disease) Hiatal hernia High cholesterol History of edema History of IBS History of steroid therapy History of stress test HLD (hyperlipidemia) HTN (hypertension) IBS (irritable bowel syndrome) Ileus Injury of back Insomnia Kidney stones Kidney stones Major depressive disorder, recurrent, unspecified Migraine Opioid use disorder panic Personality disorder, unspecified Shortness of breath on exertion Smoker Ureteral calculus, right UTI (urinary tract infection) Vomiting Walker as ambulation aid Wears dentures Home Medications gabapentin 300 mg capsule 300 mg PO TID neuropathy 08/09/16 [History Last Taken 04/05/21] nortriptyline 50 mg capsule (Pamelor) 100 mg PO QHS depression 10/13/17 [History Last Taken 04/05/21] topiramate 25 mg tablet 25 mg PO DAILY Check with primary doctor 11/24/18 [History Last Taken 04/05/21] duloxetine 30 mg capsule,delayed release (Cymbalta) 60 mg PO DAILY Check with primary doctor 06/02/19 [History Last Taken 12/01/19] propranolol 20 mg tablet 20 mg PO QHS Check with primary doctor 05/03/20 [History Last Taken 04/05/21] hydroxyzine HCl 100 mg tablet 50 mg PO BID Check with primary doctor 11/27/20 [History Last Taken 04/05/21] omeprazole 40 mg capsule,delayed release 40 mg PO DAILY Check with primary doctor 04/06/21 [History Last Taken 04/05/21] ondansetron 4 mg disintegrating tablet 4 mg PO Q8H PRN nausea and vomiting #10 tabs 04/15/21 [Rx Last Taken Unknown] lamotrigine 200 mg tablet 200 mg PO DAILY 08/02/22 [History Last Taken Unknown] lorazepam 1 mg tablet 1 mg PO BID 08/02/22 [History Last Taken Unknown] nabumetone 750 mg tablet 750 mg PO BID 08/02/22 [History Last Taken Unknown] potassium citrate 10 mEq (1,080 mg) tablet,extended release 20 meq PO 4X/DAY Check with primary doctor 08/02/22 [History Last Taken Unknown] risperidone 0.5 mg tablet 0.5 mg PO TID 08/02/22 [History Last Taken Unknown] spironolactone 25 mg tablet 25 mg PO DAILY 08/02/22 [History Last Taken Unknown] tizanidine 4 mg tablet 4 mg PO TID PRN PRN Muscle Pain 08/02/22 [History Last Taken Unknown] Allergy/AdvReac Type Severity Reaction Status Date / Time aspirin AdvReac Nausea Verified 08/06/22 11:21 Family History Father Hypertension Heart disease Brother CAD (coronary artery disease) Myocardial infarction Mother Heart disease Myocardial infarction Surgical History History of cholecystectomy History of esophagogastroduodenoscopy (EGD) History of repair of hiatal hernia S/P laparoscopic cholecystectomy Social History household members: children Smoking Status: Current every day smoker tobacco type: cigarettes alcohol intake: never substance use type: does not use ROS ROS ED ROS Narrative Constitutional: Denies fever HEENT: Denies sore throat Neck: Denies neck pain Cardiovascular: Denies chest pain, syncope Respiratory: Denies shortness of breath GI: Endorses abdominal pain, endorses nausea and vomiting : Denies changes in urinary habits Musculoskeletal: Denies muscle or joint pain Neurologic: Denies numbness weakness or loss of sensation Skin denies rash EXAM Physical Exam Narrative Exam Narrative: Nursing triage notes reviewed, Vital signs reviewed Constitutional: please see mdm HENT: MMM Eyes: Pupils equal round and reactive to light, Extraocular muscles intact Neck: No stridor, no JVD, full neck ROM Lungs: Clear to auscultation, No wheezing or rales. No increased work of breathing, no conversational dyspnea, no accessory muscle use, no nasal flaring. No respiratory distress noted Heart: Regular rate and rhythm, No murmurs, No rubs and No gallops, 2+ distal pulses (radial, femoral, posterior tibial) in all extremities Abdomen: Soft, diffuse abdominal tenderness but no rigidity, rebound or guarding, no obvious peritoneal signs, no palpable pulsatile abdominal masses, no auscultated abdominal bruit : No CVAT Extremities: No edema Neuro: No focal neurological deficits, cranial nerves II through XII intact, 5/5 strength in all extremities. Intact sensation to light touch in all extremities, 2+ reflexes bilateral patella dens. Normal gait. No ataxia. Skin: No rash or lesions noted Const Vital Signs: 08/06/22 11:21 08/06/22 13:25 Temperature 98 F Temperature Source Temporal Pulse Rate 129 H 102 H Respiratory Rate 22 H 18 Blood Pressure 138/103 H 145/100 H Blood Pressure Mean 114 115 Pulse Ox 99 100 Oxygen Delivery Method Room Air Room Air MDM MDM MDM Narrative Medical decision making narrative: Chief Complaint: Abdominal pain nausea vomiting External records reviewed: CT scan of the abdomen pelvis from 2021 shows no acute intra-abdominal process shows minimal cutaneous thickening of the lower abdominal wall I considered the following differential diagnosis: Intra-abdominal pathology, perforation, obstruction, dehydration, electrolyte O'Joshua, gallbladder pathology, hepatobiliary traction, pancreatitis I obtained a CT scan of the abdomen pelvis, and labs to further elucidate etiology of patient complaints. Labs showed no evidence of systemic inflammation, no evidence of endorgan hypoperfusion, no evidence of acute kidney injury or significant electrolyte abnormalities, no evidence of UTI. CT scan showed no acute surgical process. Patient was given p.o. antiemetics and discharged home with close GI and PCP follow-up Factors affecting care: History of hyperlipidemia, kidney stones, anxiety, hypertension Social determinants of health: Current every day smoker History obtained from others: None Shared decision making: I will have a discussion with the patient and or visitors regarding risk/benefits of further testing or admission. They will be made aware of of the risk/benefits inherent in this decision they will be given the opportunity to voice understanding. Consults: None Lab Data Attestation: I reviewed the patient's lab results. Lab results narrative: CMP without evidence of acute kidney injury, significant electrolyte abnormality, anion gap, no evidence hepatobiliary pathology. Lactate is wnl indicating no end-organ hypoperfusion and/or hypoxia. Lipase is wnl indicating no pancreatic inflammation. UA without evidence of UTI Urine test negative Labs: Laboratory Results - last 24 hr 08/06/22 08/06/22 08/06/22 13:41 13:41 13:41 Sodium 141 Potassium 3.6 Chloride 107 Carbon Dioxide 27.0 Anion Gap 7 BUN 17 Creatinine 1.02 Estim Creat Clear Calc 75.85 Est GFR (MDRD) Af Amer 77 Est GFR (MDRD) Non-Af 63 BUN/Creatinine Ratio 16.7 Glucose 104 Lactic Acid 1.6 Calcium 10.0 Total Bilirubin 0.50 Direct Bilirubin 0.12 AST 21 ALT 55 Alkaline Phosphatase 150 H Total Protein 8.6 H Albumin 4.4 Globulin 4.2 Lipase 95 Urine Color Yellow Urine Clarity Sl. Cloudy Urine pH 5.0 Ur Specific Balfour 1.025 Urine Protein 30 H Urine Glucose (UA) Normal Urine Ketones 150 A* Urine Occult Blood 50 H Urine Nitrite Negative Urine Bilirubin 1 H Urine Urobilinogen 1 H Ur Leukocyte Esterase 100 H Urine RBC 5-10 SEEN Urine WBC 0-5 SEEN Ur Squamous Epith Cells 0-5 SEEN Urine Bacteria RARE Urine Mucus 0 SEEN Urine Test Negative Radiography Diagnostic Testing: Clinical Impression(s) from Imaging Studies Abdomen/Pelvis CT 08/06/22 14:30 IMPRESSION: Status post cholecystectomy with minimal degree of intrahepatic bile ductal dilatation. This is a normal finding. Tiny bilateral nonobstructive intrarenal calculi. Calcified phleboliths are seen in the pelvis. Electronically Signed: Francisco Lopez MD at 14:56 EDT , Discharge Plan Triage Chief Complaint: Abd Pain ED Provider: Ever Elkins Dx/Rx/DC Orders Clinical Impression: Nausea, vomiting, and diarrhea, Gastroparesis, Acute dehydration Instructions: Dehydration, ED Vomiting (Adult) Prescriptions: No Action gabapentin 300 MG capsule 300 mg PO TID Label Comments: back pain nortriptyline [Pamelor] 50 MG capsule 100 mg PO QHS topiramate 25 tablet 25 mg PO DAILY duloxetine [Cymbalta] 30 MG capsule 60 mg PO DAILY Rx Instructions: take (3) 30mg capsules per day to make 90mg dose propranolol 20 MG tablet 20 mg PO QHS hydroxyzine HCl 100 mg Tablet 50 mg PO BID omeprazole 40 MG capsule,delayed release(DR/EC) 40 mg PO DAILY ondansetron 4 mg tablet,disintegrating 4 mg PO Q8H PRN (Reason: nausea and vomiting) Qty: 10 0RF lamotrigine 200 mg tablet 200 mg PO DAILY nabumetone 750 mg tablet 750 mg PO BID tizanidine 4 mg tablet 4 mg PO TID PRN PRN (Reason: Muscle Pain) spironolactone 25 mg tablet 25 mg PO DAILY lorazepam 1 mg tablet 1 mg PO BID risperidone 0.5 mg tablet 0.5 mg PO TID potassium citrate 10 mEq (1,080 mg) tablet extended release 20 meq PO 4X/DAY Stand Alone Forms: ED Work / School Excuse Primary Care Provider: Tom Giraldo Referrals: Tom Giraldo MD [Primary Care Provider] - Activity Restrictions/Additional Instructions: Please take your home antinausea medicine as prescribed. Please start taking Pepcid. You can obtain Pepcid [id number] from any pharmacy or drugstore. Please return if you develop intractable nausea vomiting, worsening belly pain or if your symptoms change or worsen in any way. Disposition Disposition: Home, Self Care
[2022-08-06] MEDS: Morphine 4 MG/ML Syringe IV ×2 (13:41→15:20)
[2022-08-06] MEDS: Ondansetron 4 MG/2 ML Vial IV (13:41)
[2022-08-06] MEDS: 0.9% Normal Saline 1,000 ML 1000 ML IV (13:41)
[2022-08-06 13:52] LABS: Mucous, Urine 0 SEEN /hpf (<or=2+)
[2022-08-06] MEDS: Famotidine 200 MG/20 ML MDV 20 MG in 0.9% Normal Saline (Pres. free 8 ML 300 MG IV (13:58)
[2022-08-06 14:02] LABS: Color, Urine Yellow (Yellow); Glucose, Dipstick Normal (Normal); Leukocyte Esterase-Dipstick 100 /ul (Negative); Nitrite-Dipstick Negative (Negative); Occult Blood-Urine 50 /ul (Negative); Protein-Dipstick 30 mg/dl (Negative); Specific Gravity, Urine 1.025 (1.002-1.030); Urine Bilirubin Dipstick 1 mg/dL (Negative); Urine Clarity Sl. Cloudy (Clear); Urine Urobilinogen 1 mg/dl (Normal)
[2022-08-06 14:03] LABS: Ketone-Dipstick 150 mg/dl (Negative)
[2022-08-06 14:09] LABS: Bacteria RARE /hpf (None Seen); Red Blood Cells-Urine 5-10 SEEN /hpf (0-5); Squamous Epithelial Cells - UA 0-5 SEEN /hpf (5-10); White Blood Cells 0-5 SEEN /hpf (0-5)
[2022-08-06 14:10] LABS: Internal QC Validated? YES +Cl - CLEAR BKGD; Pregnancy, Urine Negative Negative
[2022-08-06 14:11] LABS: AST(SGOT) 21 U/L (15-37); Alanine Aminotransfer ALT/SGPT 55 U/L (13-56); Albumin, Serum 4.4 g/dL (3.2-5.0); Alkaline Phosphatase 150 U/L (45-117); Anion Gap 7 (5-15); BUN 17 mg/dL (7-18); BUN/Creat Ratio 16.7 RATIO (10-20); Bilirubin, Direct 0.12 mg/dL (0.00-0.30); Chloride 107 mmol/L (98-107); Creatinine, Serum 1.02 mg/dL (0.55-1.02); EST Glomerular Filtration Rate 63 mL/min (>60); Est Glom Filt Rate - Afr Amer 77 mL/min (>60); Estimated Creatinine Clearance 75.85 ml/min; Globulin 4.2 g/dL (2.2-4.2); Glucose 104 mg/dL (74-106); Lipase 95 U/L (73-393); Potassium 3.6 mmol/L (3.5-5.1); Protein, Total 8.6 g/dL (6.4-8.2); Sodium Level 141 mmol/L (136-145)
[2022-08-06 14:26] LABS: Lactic Acid 1.6 mmol/L (0.4-1.9)
--- NOTE | 2022-08-06 14:30 | CT_ITS ---
STUDY: CT ABDOMEN AND PELVIS WITH CONTRAST REASON FOR EXAM: Female, 42 years old. Diffuse abdominal pain nausea vomiting RADIATION DOSAGE (If Supplied By Facility): CTDIvol = ( 10.18 ) mGy, DLP = ( 751.71 ) mGycm TECHNIQUE: Transaxial images were obtained from the dome of the diaphragm to the symphysis pubis without oral contrast. IV 100mL Isovue-370 was administered. Sagittal and coronal images were reconstructed. Individualized dose optimization techniques were used for this CT. COMPARISON: Comparison is made with prior study August 28, 2021. FINDINGS: The visualized lung bases are unremarkable. The visualized portions of the heart are within normal limits. Minimally dilated central intrahepatic biliary ducts. This is a normal finding in the patient with a post cholecystectomy. The patient status post cholecystectomy. Normal spleen. Spondylosis is seen in the region of the splenic hilum. Normal pancreas. Normal bilateral adrenal glands. There are tiny nonobstructive bilateral intrarenal calculi. Normal visualized stomach. Normal small intestine. Normal colon. There is non-visualization of the appendix. Normal abdominal aorta. Normal inferior vena cava. Normal retroperitoneum. Normal urinary bladder. Calcified phleboliths are seen in the pelvis. There is a small umbilical hernia containing fat. A battery pack from the spinal cord stimulator device is seen overlying the right buttock. Normal osseous structures. CT/Abdomen/Pelvis W IV Cont ONLY IMPRESSION: Status post cholecystectomy with minimal degree of intrahepatic bile ductal dilatation. This is a normal finding. Tiny bilateral nonobstructive intrarenal calculi. Calcified phleboliths are seen in the pelvis. Electronically Signed: Francisco Lopez MD at 14:56 EDT ,
[2022-08-06] MEDS: Metoclopramide 10 MG/2 ML Vial 5 MG IV (14:39)
== END 2022-08-06 15:27 | disposition home or self-care (01) ==
PROVIDERS: Emergency Provider Emergency Medicine; PCP Family Medicine; Visit Provider Emergency Medicine
DX: K31.84 Gastroparesis (principal); E86.0 Dehydration; F41.9 Anxiety disorder, unspecified; I10 Essential (primary) hypertension; E78.00 Pure hypercholesterolemia, unspecified; F17.200 Nicotine dependence, unspecified, uncomplicated; Z90.49 Acquired absence of other specified parts of digestive tract
CPT/HCPCS: 74177; 80048; 80076; 81001; 81025; 83605; 83690; 96361; 96365; 96375; 99283; J7030; Q9967; A4216; J2405; J3490

== ENCOUNTER → 2022-08-28 | Outpatient (CLI) | payer MEDICAID, SELFPAY ==
[2022-08-28 11:36] LABS: Absolute Lymphocyte Count 2.26 X10^3/uL (0.83-4.51); Absolute Neutrophil Count 7.5 X10^3/uL (2.0-7.7); Basophil% 0.9 % (0-1); Eosinophil# 0.19 X10^3/uL; Eosinophils% 1.7 % (0-5); Hematocrit 44.7 % (37-47); Hemoglobin 14.4 g/dL (12.0-15.0); Lymphocyte # 2.26 X10^3/ul (0.83-4.51); Lymphocyte % 20.8 % (19-41); Mean Corp Hgb Conc 32.2 g/dL (32-36); Mean Corpuscular Hgb 29.7 pg (27.0-32.0); Mean Corpuscular Volume 92.2 fL (81-99); Mean Platelet Vol. 9.3 fl (6.2-12.0); Monocyte% 6.4 % (0-10); NRBC Flagged by Analyzer 0 % (0-5); Neutrophil # 7.51 X10^3/uL (2.7-7.7); Neutrophil % 69.2 % (47-70); Platelet Count 363 K/mm3 (150-450); RBC Distribution Width CV 14.8 % (11.6-14.6); RBC Distribution Width SD 49.6 fl (35.1-43.9); Red Blood Count 4.85 M/mm3 (4.2-5.4); White Blood Count 10.9 K/mm3 (4.4-11.0)
[2022-08-28 12:08] LABS: Estradiol 39.2 pg/mL; Follicle Stimulating Hormone 3.9 mIU/mL; Luteinizing Hormone 6.4 mIU/mL; T4 Free Direct 0.84 ng/dL (0.76-1.46); Thyroid Stim Hormone (TSH) 0.63 uIU/mL (0.358-3.74)
[2022-09-03 13:08] LABS: Testosterone, % Free 1.24 % (0.50-2.80); Testosterone, Free < 0.04 ng/dL (0.10-0.85); Testosterone, Total < 3 ng/dL (4-50)
== END | disposition home or self-care (01) ==
LOC: WOBLAB 11:16
PROVIDERS: PCP Family Medicine; Visit Provider Obstetrics & Gynecology
DX: N95.1 Menopausal and female climacteric states (principal)
CPT/HCPCS: 36415; 82670; 83001; 83002; 84402; 84403; 84439; 84443; 85025

== ENCOUNTER 2022-09-18 10:29 | Day surgery (SDC) | payer MEDICAID, SELFPAY ==
[2022-09-18] VITALS (7 sets, daily range): BP systolic 92–123; BP diastolic 55–79; PULSE 66–88; RESP 16–18; TEMP 36.3–37.2; O2SAT 94–98; BMI 24.8
[2022-09-18] MEDS: Lactated Ringers 1,000 ML 15 ML IV ×3 (11:09→14:31)
--- NOTE | 2022-09-18 12:05 | CALC_PTH ---
PATIENT: KARLA LANCE LOC: [facility] [place] U#:[id number] AGE/SX: 42/F ROOM: RE09/18/[address]: Dr. Krystin Aggarwal MD : [id number] BED: DIS: 09/18/2022 SPEC #: [id number] RECD: 09/18/22 16:48 STATUS: KIRAN ARMENDARIZ #: [id number] NOLBERTO: 09/18/22 12:[address]: Krystin Aggarwal DEPT: SURGICAL PATHOLOGY RECD BY: Sirisha Garcia ENTERED: 09/19/22 12:25 SP TYPE: Calculi OTHR DR: Dr. Tom Giraldo MD Tissues: CALCULI Procedures: Surgery Specimen Level I HEADER OPERATION: Cystoscopy, ureteroscopy with stone basket extraction PRE-OP DIAGNOSIS: Bilateral calculus of kidney TISSUE SUBMITTED: Kidney stones GROSS DIAGNOSIS Fragments of stone, clinically kidney stones (gross only). SJ:heidi 09/22/2022 COMMENT The calculus is submitted in its entirety for chemical stone analysis. The results from this study will be reported separately. GROSS DESCRIPTION Received is one container labeled with the patient's name and designated kidney stones. The specimen consists of multiple fragments of brownish-black stones measuring in aggregate 0.4 x 0.4 x 0.1 cm. The entire specimen is submitted for stone analysis. / SJ:heidi 09/19/2022 CPT: 48321
--- NOTE | 2022-09-18 12:40 | DCINST_ITS ---
Discharge Instructions Diet Discharge Diet: No restrictions Activity Discharge Activity: Return to Normal Activity Dressing / Incision Call your doctor if you observe: Fever of 101 or Higher, Inability to urinate and Inability to have a bowel movement Follow Up Care Please Follow Up With: Krystin Aggarwal MD When: call for appt for stent removal next week Test Results: Test results from this visit will be discussed in further detail at your follow- up appointment, if applicable. Discharge Plan Admission Attending Provider: Krystin Aggarwal Primary Care Provider: Tom Giraldo Discharge Orders/Prescriptions Prescriptions: New oxycodone-acetaminophen [oxycodone-acetaminophen] 5-325 mg tablet 2 tab PO Q8H PRN PRN (Reason: Pain) 7 Days Qty: 20 0RF cephalexin [cephalexin] 500 mg capsule 500 mg PO Q12 3 Days Qty: 6 0RF phenazopyridine [Pyridium] 200 mg tablet 200 mg PO TID PRN PRN (Reason: Bladder Spasms) 7 Days Qty: 30 0RF Continued gabapentin 300 MG capsule 600 mg PO TID Label Comments: back pain nortriptyline [Pamelor] 50 MG capsule 100 mg PO QHS topiramate 25 tablet 25 mg PO DAILY duloxetine [Cymbalta] 30 MG capsule 60 mg PO DAILY Rx Instructions: take (3) 30mg capsules per day to make 90mg dose propranolol 20 MG tablet 20 mg PO QHS hydroxyzine HCl 100 mg Tablet 50 mg PO BID omeprazole 40 MG capsule,delayed release(DR/EC) 40 mg PO DAILY ondansetron 4 mg tablet,disintegrating 4 mg PO Q8H PRN (Reason: nausea and vomiting) Qty: 10 0RF lamotrigine 200 mg tablet 200 mg PO DAILY nabumetone 750 mg tablet 750 mg PO BID tizanidine 4 mg tablet 4 mg PO TID PRN PRN (Reason: Muscle Pain) spironolactone 25 mg tablet 25 mg PO DAILY lorazepam 1 mg tablet 1 mg PO BID Referrals / Follow Up: Tom Giraldo MD [Primary Care Provider] - Disposition Disposition (needs filled in before D/C Order can be placed): Home, Self Care
--- NOTE | 2022-09-18 14:11 | PCM.OPRPT ---
Report of Operation Date of Procedure: 09/18/22 Pre-Operative Diagnosis: Bilateral renal calculi Post-Operative Diagnosis: Same Surgery/Procedure Performed:: Cystoscopy, bilateral ureteroscopy left holmium laser lithotripsy, bilateral stone basket extraction, bilateral ureteral stent insertion Surgeon: Krystin Aggarwal Type of Anesthesia: General Specimen's removed: Stone fragments Description of Procedure: The patient is a 42-year-old female with a history of stones who presented with acute on chronic back pain. She was evaluated in the emergency room with a CT scan revealing bilateral nonobstructing stones. Informed consent was obtained and the patient presents for surgical intervention secondary to pain control issues. The patient was taken to the operating room and placed on the operating room table. Anesthesia monitored the head, neck, airway, IV access and vital signs throughout the case. Once anesthesia was appropriate administered, the patient was placed into dorsal lithotomy position was prepped and draped in usual sterile fashion. The cystoscope was inserted through the urethra under direct visualization into the urinary bladder which was normal. The left ureteral orifice was identified and intubated with 2 separate 0.035 Glidewire's. A ureteral access sheath was used over one of the wires and the flexible ureteroscope was inserted through this. The sheath was inserted under fluoroscopic visualization without difficulty. Access was obtained to the upper pole of the left kidney where 2 larger stone fragments were identified. A 200 ?m laser fiber was used to break the stones into smaller pieces which were then stone basket retrieved and sent for analysis. The flexible ureteroscope was then used to directly visualize the entire length of the ureter and removal of the ureteral access sheath. On the way out another stone fragment was identified grasped and removed. Using the remaining Glidewire, a 4.5 x 26 JJ stent was inserted over the wire with good positioning in the renal pelvis and the urinary bladder. Attention was then turned towards the patient's right ureter. 2 separate 0.035 Glidewire's were inserted through the ureteral orifice into the renal pelvis. The flexible ureteroscope was placed over one of the wires and advanced easily all the way to the renal pelvis where a stone fragment was identified and much smaller debris was seen in 1 calyx and was flushed out. The stone fragments were too small for basket retrieval. After removal of the large stone fragment, a second fragment was seen in the ureter. The semirigid ureteroscope was used for basket retrieval of that fragment. At the end of the stone retrieval, ureteroscopy revealed no evidence of injury to the renal pelvis or the ureter. The remaining safety wire was used to place a 4.5 x 28 cm JJ stent. The urinary bladder was emptied and the cystoscope was removed. The patient was awakened and taken to the recovery room in good condition. There were no complications during the procedure. Grafts/Implants Used: 6 x 26 JJ stent on the left and a 6 x 28 JJ stent on the right Complications None Admit VTE Documentation VTE Present on Admission: Yes VTE Mechan Device Prophylaxis: SCD's VTE Pharm Prophylaxis ordered?: No Reason prophylaxis not ordered:: Treatment Not Indicated
[2022-09-18] MEDS: Phenazopyridine 95 MG Tablet 190 MG PO (14:59)
== END 2022-09-18 15:49 | disposition home or self-care (01) ==
LOC: SDC 10:30 → AC 10:30
PROVIDERS: PCP Family Medicine; Referring Provider Urology; Visit Provider Urology
PROC: (CPT 52356; principal; 2022-09-18 11:55)
DX: N20.0 Calculus of kidney (principal); F31.9 Bipolar disorder, unspecified; R31.29 Other microscopic hematuria; N39.41 Urge incontinence; R35.1 Nocturia; M54.9 Dorsalgia, unspecified; G89.29 Other chronic pain; I10 Essential (primary) hypertension; E78.00 Pure hypercholesterolemia, unspecified; F17.200 Nicotine dependence, unspecified, uncomplicated; Z79.899 Other long term (current) drug therapy
CPT/HCPCS: 52356; 52352; 52332; 00918; 76000; 88300; J7120; J2405

== ENCOUNTER → 2022-09-26 | Outpatient (CLI) | payer MEDICAID, SELFPAY | END | disposition home or self-care (01) | PROVIDERS: PCP Family Medicine; Visit Provider Urology | DX: N20.0 Calculus of kidney (principal) | CPT/HCPCS: 82360 ==

== ENCOUNTER → 2022-10-30 | Outpatient (CLI) | payer MEDICAID, SELFPAY ==
--- NOTE | 2022-10-30 15:43 | RAD_ITS ---
STUDY: X-RAY - ACUTE ABDOMINAL SERIES REASON FOR EXAM: Female, 42 years old. Right flank pain. TECHNIQUE: Single view of the chest. Supine, and erect view(s) of the abdomen were obtained. COMPARISON: CT abdomen and pelvis, August 06, 2022. FINDINGS: The lungs are clear and expanded. Normal size heart. Normal mediastinum and sebastián. Normal visualized pulmonary arteries. Normal visualized aortic arch and descending thoracic aorta. There is a dorsal column stimulator with leads overlying the midthoracic spine. There is a non-specific bowel gas pattern. No small bowel dilatation no free air. The soft tissue structures of the abdomen and pelvis are unremarkable. Normal visualized osseous structures. RAD/Acute Abdomen Inc Chest IMPRESSION: 1. Normal x-ray examination of the chest, abdomen, and pelvis. 2. Stable dorsal column stimulator. Electronically Signed: Keny Barney DO at 20:43 EDT ,
[2022-10-30 18:00] LABS: Mucous, Urine 0 SEEN /hpf (<or=2+); Red Blood Cells-Urine 0 SEEN /hpf (0-5)
[2022-10-30 18:25] LABS: Color, Urine Yellow (Yellow); Glucose, Dipstick Normal (Normal); Ketone-Dipstick 5 mg/dl (Negative); Leukocyte Esterase-Dipstick 100 /ul (Negative); Nitrite-Dipstick Negative (Negative); Occult Blood-Urine Negative /ul (Negative); Protein-Dipstick 15 mg/dl (Negative); Specific Gravity, Urine 1.015 (1.002-1.030); Urine Clarity Cloudy (Clear); Urine Urobilinogen Normal (Normal)
[2022-10-30 18:37] LABS: Urine Bilirubin Dipstick 1 mg/dL (Negative)
[2022-10-30 19:20] LABS: White Blood Cells 25-50 SEEN /hpf (0-5)
[2022-10-30 19:21] LABS: Bacteria 1+ /hpf (None Seen); Calcium Oxalate Crystals Ur 1+ /hpf (<or=2+); Squamous Epithelial Cells - UA 10-25 SEEN /hpf (5-10)
== END | disposition home or self-care (01) ==
PROVIDERS: PCP Family Medicine; Referring Provider Family Medicine; Visit Provider Family Medicine
DX: R10.9 Unspecified abdominal pain (principal); N20.0 Calculus of kidney
CPT/HCPCS: 74022; 81001; 87077; 87086; 87088

== ENCOUNTER 2022-11-10 14:46 | Emergency (ER) | payer MEDICAID, SELFPAY ==
[2022-11-10 14:47] VITALS: BP 123/100; PULSE 89; RESP 18; TEMP 36.4; O2SAT 98
[2022-11-10 14:49] VITALS: BMI 25.0
--- NOTE | 2022-11-10 15:16 | CT_ITS ---
STUDY: CT ABDOMEN AND PELVIS WITHOUT CONTRAST REASON FOR EXAM: Female, 42 years old. Chronic back pain. Fall yesterday. RADIATION DOSAGE (If Supplied By Facility): CTDIvol = ( 7.37 ) mGy, DLP = ( 418.24 ) mGycm TECHNIQUE: Transaxial images were obtained from the dome of the diaphragm to the symphysis pubis without oral contrast, and without intravenous contrast. Sagittal and coronal images were reconstructed. Individualized dose optimization techniques were used for this CT. COMPARISON: August 06, 2022. FINDINGS: The visualized lung bases are unremarkable. The visualized portions of the heart are within normal limits. Normal liver. There are surgical clips in the gallbladder fossa consistent with a prior cholecystectomy. Normal spleen. Normal pancreas. Normal bilateral adrenal glands. There are multiple tiny calcifications within the left kidney measuring approximately 1 to 2 mm on the small nonobstructing calculi. No hydronephrosis. Normal right ureter. Multiple small calcifications are seen throughout the left kidney without obstruction. The largest measures 3 mm. No hydronephrosis. Normal left ureter. Normal visualized stomach. Normal small intestine. There is gaseous distention of the right and transverse colon. The left colon is partially collapsed. There are diverticuli in the sigmoid without inflammatory change. There is no mass or obstruction. There is non-visualization of the appendix. Normal abdominal aorta. Normal inferior vena cava. Normal retroperitoneum. Normal urinary bladder. Normal uterus and adnexa. There are phleboliths in the pelvis without lymphadenopathy. No free air or free fluid is seen within the abdominal cavity. Normal abdominal wall. Normal osseous structures. CT/Abdomen/Pelvis without Cont IMPRESSION: 1. Gaseous distention of the colon without evidence of obstructing mass. 2. Sigmoid diverticulosis without acute inflammatory change. 3. Nonobstructing bilateral renal calculi. 4. No other major change from the previous examination. Electronically Signed: Keny Barney DO at 16:16 EDT ,
--- NOTE | 2022-11-10 15:18 | EX.ED.DYSGE1 ---
HPI History of Present Illness Chief Complaint: Back Informant: patient Narrative Narrative: Patient is a 42-year-old female with history of fibromyalgia, chronic back pain, anxiety, kidney stones and hypertension presenting with worsening abdominal pain. Patient states she has been having worsening lower abdominal pain suprapubic region for the past week. She states its constant nature and does not radiate. It feels like her prior kidney stones. She states she saw her urologist, Dr. Aggarwal who did a urine test and states it was consistent with kidney stones. She had a KUB which was inconclusive. She states her urologist office called her and told her that she needs to come to the ER for CT scan. In addition patient has chronic back pain and has been having worsening low back pain for the past 2 days since she had a fall. She states she was in the yard and tripped over a chickenwire. She landed on her hands and legs did not actually injure herself but her pain is been worse since. She states she is having a lot of pain and weakness in her lower extremities which is consistent with a flare of her fibromyalgia. She did take a Percocet at noon today with no significant relief. Patient states she has a prescription for Percocet but does not usually take it daily. She states she does have a history of addiction and her father keeps track of her Percocet and will dispense it to her when she needs it. She states this keeps her from abusing it. Patient denies any fever. She has chronic green diarrhea secondary to gastroparesis and has no change in this. She is chronic nocturnal urinary incontinence which is unchanged. Denies any new numbness of her legs. Notes that she does have a chronic right foot drop. [facility] Medical History Anxiety Arthritis Back pain Bipolar disorder Blackout Chest pain Depression DVT (deep venous thrombosis) Fibromyalgia Gastroparalysis GERD (gastroesophageal reflux disease) High cholesterol History of edema History of pain when walking History of stress test HLD (hyperlipidemia) HTN (hypertension) IBS (irritable bowel syndrome) Incontinence Insomnia Kidney stones Kidney stones Loss of hearing Major depressive disorder, recurrent, unspecified Migraine OAB (overactive bladder) Opioid use disorder panic Personality disorder, unspecified Shortness of breath on exertion Smoker Ureteral calculus, right Walker as ambulation aid Wears dentures Wears glasses Home Medications gabapentin 300 mg capsule 600 mg PO TID neuropathy 08/09/16 [History Last Taken 09/18/22 06:00] nortriptyline 50 mg capsule (Pamelor) 100 mg PO QHS depression 10/13/17 [History Last Taken 04/05/21] topiramate 25 mg tablet 25 mg PO DAILY Check with primary doctor 11/24/18 [History Last Taken 04/05/21] duloxetine 30 mg capsule,delayed release (Cymbalta) 60 mg PO DAILY Check with primary doctor 06/02/19 [History Last Taken 09/18/22 06:00] propranolol 20 mg tablet 20 mg PO QHS Check with primary doctor 05/03/20 [History Last Taken 09/18/22 06:00] hydroxyzine HCl 100 mg tablet 50 mg PO BID Check with primary doctor 11/27/20 [History Last Taken 04/05/21] omeprazole 40 mg capsule,delayed release 40 mg PO DAILY Check with primary doctor 04/06/21 [History Last Taken 09/18/22 06:00] ondansetron 4 mg disintegrating tablet 4 mg PO Q8H PRN nausea and vomiting #10 tabs 04/15/21 [Rx Last Taken Unknown] lamotrigine 200 mg tablet 200 mg PO DAILY 08/02/22 [History Last Taken 09/18/22 06:00] lorazepam 1 mg tablet 1 mg PO BID 08/02/22 [History Last Taken Unknown] nabumetone 750 mg tablet 750 mg PO BID 08/02/22 [History Last Taken Unknown] spironolactone 25 mg tablet 25 mg PO DAILY 08/02/22 [History Last Taken Unknown] tizanidine 4 mg tablet 4 mg PO TID PRN PRN Muscle Pain 08/02/22 [History Last Taken Unknown] cephalexin 500 mg capsule 500 mg PO Q12 post-operative 3 days #6 CAPSULES 09/18/22 [Rx Last Taken Unknown] oxycodone-acetaminophen 5 mg-325 mg tablet 2 tab PO Q8H PRN PRN Pain 7 days #20 tabs 09/18/22 [Rx Last Taken Unknown] phenazopyridine 200 mg tablet (Pyridium) 200 mg PO TID PRN PRN Bladder Spasms 7 days #30 tabs 09/18/22 [Rx Last Taken Unknown] dicyclomine 20 mg tablet 20 mg PO TID PRN abdominal pain #20 tabs 11/10/22 [Rx Last Taken Unknown] prednisone 20 mg tablet 40 mg PO DAILY #8 TABLETS 11/10/22 [Rx Last Taken Unknown] Allergy/AdvReac Type Severity Reaction Status Date / Time aspirin AdvReac Nausea Verified 11/10/22 14:49 Family History Father Hypertension Heart disease Brother CAD (coronary artery disease) Myocardial infarction Mother Heart disease Myocardial infarction Surgical History History of cholecystectomy History of esophagogastroduodenoscopy (EGD) History of repair of hiatal hernia S/P laparoscopic cholecystectomy Social History household members: children Smoking Status: Current every day smoker tobacco type: cigarettes alcohol intake: never substance use type: does not use ROS ROS ED Constitutional Constitutional ED: Denies chills or fever(s) ENT ENT ED: Denies sore throat Cardiovascular Cardiovascular: Denies chest pain Respiratory/Chest Respiratory/Chest: Denies cough Gastrointestinal Gastrointestinal: Reports abdominal pain, diarrhea and nausea; Denies melena or vomiting Genitourinary Genitourinary ED: Denies dysuria, hematuria or urinary frequency Musculoskeletal Musculoskeletal: Reports back pain and myalgias Integumentary Denies rash Neurologic Neurologic: Reports weakness; Denies paresthesias Psychiatric Psychiatric: Denies anxiety Hematologic/Lymphatic Hematologic/Lymphatic: Denies easy bleeding or easy bruising EXAM Physical Exam Const Vital Signs: 11/10/22 14:47 11/10/22 15:40 11/10/22 17:51 Temperature 97.5 F L Temperature Source Temporal Pulse Rate 89 Respiratory Rate 18 16 16 Blood Pressure 123/100 H 122/85 H 118/82 H Blood Pressure Mean 107 97 Pulse Ox 98 Positive well nourished and well developed General Appearance ED: well developed and NAD HEENT Reports moist mucous membranes Eyes PERRL Neck supple Chest Wall inspection of chest normal and palpation of chest normal Resp normal respiratory effort and clear to auscultation bilaterally Cardio regular rate and regular rhythm GI normal to inspection, nondistended, normoactive bowel sounds Palpation: soft and tender suprapubic; Negative for guarding Back/Spine no CVA tenderness Thoracic Spine / Upper Back: Negative for thoracic spinal tenderness Lumbar Spine / Lower Back: Negative for lumbar spinal tenderness Extremity normal to inspection General Extremety ED: Negative for edema or tenderness General Extremity: Negative for edema Neuro oriented x3 Neuro Narrative: Decree strength in the lower extremities diffusely however I suspect is due to low effort. Right foot drop present Motor Exam: Negative for general weakness Psych mental status grossly normal Mood & Affect: anxious Skin no rashes or lesions noted and no wounds MDM MDM MDM Narrative Medical decision making narrative: Patient is a 42-year-old female with history of chronic back pain presenting with worsening pain. She also has a significant history of fibromyalgia and anxiety. Patient states she was told to come in by her urologist for concern of kidney stones. Differential also includes pyelonephritis, cystitis, acute exacerbation of chronic pain and less likely aortic dissection. Patient has normal vital signs and normal peripheral pulses and I do not think CT is indicated. She has a mild leukocytosis 11.3 which is nonspecific. CMP largely normal. She is a mild elevation of her alkaline phosphatase which is chronic and stable. Urinalysis is not consistent with stone or infection and actually significantly improved from prior urinalysis. CT of the abdomen pelvis does not show any acute process but does show gaseous distention of the colon without evidence of obstructing mass. Patient has nonobstructing tiny renal calculi which should not be causing her symptoms. Case is discussed with the patient's urologist, Dr. Aggarwal, who states that she did not send the patient to the emergency room. She does asked that I send her urine for culture.Patient was initially given IV morphine, Zofran and Toradol in the emergency room. On repeat evaluation she states she still having a lot of pain. Patient counseled that her work-up was largely negative. She does have a lot of gas which could be causing her lower abdominal pain. She is given Bentyl, started on steroids to hopefully help with her worsening back pain as this could be an exacerbation of her chronic pain and is given 1 dose of IV fentanyl prior to discharge for further pain control. Patient is already in pain management and has a prescription for Percocet at home and I do not feel comfortable prescribing her further opioid medications. Patient given return precautions. Counseled that patient cannot be admitted for fibromyalgia flare especially as she still able to perform ADLs at this time. Patient encouraged to follow-up with her specialist including her pain management doctor. Lab Data Attestation: I reviewed the patient's lab results. Labs: Laboratory Results - last 24 hr 11/10/22 11/10/22 11/10/22 15:26 15:26 15:40 WBC 11.3 H RBC 4.53 Hgb 13.4 Hct 42.2 MCV 93.2 MCH 29.6 MCHC 31.8 L RDW Std Deviation 52.1 H RDW Coeff of Raquel 15.2 H Plt Count 395 MPV 9.6 Immature Gran % (Auto) 2.400 H Neut % (Auto) 65.4 Lymph % (Auto) 21.6 Pope % (Auto) 8.9 Eos % (Auto) 0.9 Baso % (Auto) 0.8 Absolute Neuts (auto) 7.4 Absolute Lymphs (auto) 2.43 Nucleated RBC % 0 Sodium 140 Potassium 3.5 Chloride 110 H Carbon Dioxide 24.0 Anion Gap 6 BUN 14 Creatinine 0.89 Estim Creat Clear Calc 89.95 Est GFR (MDRD) Af Amer 89 Est GFR (MDRD) Non-Af 74 BUN/Creatinine Ratio 15.7 Glucose 104 Calcium 9.0 Total Bilirubin 0.30 AST 16 ALT 46 Alkaline Phosphatase 142 H Total Protein 7.4 Albumin 3.8 Globulin 3.6 Albumin/Globulin Ratio 1.1 Lipase 20 Urine Color Yellow Urine Clarity Clear Urine pH 6.0 Ur Specific [place] 1.015 Urine Protein 15 H Urine Glucose (UA) Normal Urine Ketones 5 H Urine Occult Blood Negative Urine Nitrite Negative Urine Bilirubin Negative Urine Urobilinogen Normal Ur Leukocyte Esterase 25 H Urine RBC 0 SEEN Urine WBC 0-5 SEEN Ur Squamous Epith Cells 0-5 SEEN Calcium Oxalate Crystal 1+ Urine Bacteria RARE Urine Mucus 0 SEEN Radiography Diagnostic Testing: Clinical Impression(s) from Imaging Studies Abdomen/Pelvis CT 11/10/22 15:16 IMPRESSION: 1. Gaseous distention of the colon without evidence of obstructing mass. 2. Sigmoid diverticulosis without acute inflammatory change. 3. Nonobstructing bilateral renal calculi. 4. No other major change from the previous examination. Electronically Signed: eKny Barney DO at 16:16 EDT Reading Location ID and State: [address] [place] [address] Tel [phone], Service support , Discharge Plan Triage Chief Complaint: Back ED Provider: Gerri Landaverde Dx/Rx/DC Orders Clinical Impression: Lower abdominal pain, Myalgia, Acute exacerbation of chronic low back pain Instructions: ED Pain, Acute, Uncertain Cause Prescriptions: New dicyclomine 20 mg tablet 20 mg PO TID PRN (Reason: abdominal pain) Qty: 20 0RF prednisone 20 mg tablet 40 mg PO DAILY Qty: 8 0RF No Action gabapentin 300 MG capsule 600 mg PO TID Label Comments: back pain nortriptyline [Pamelor] 50 MG capsule 100 mg PO QHS topiramate 25 tablet 25 mg PO DAILY duloxetine [Cymbalta] 30 MG capsule 60 mg PO DAILY Rx Instructions: take (3) 30mg capsules per day to make 90mg dose propranolol 20 MG tablet 20 mg PO QHS hydroxyzine HCl 100 mg Tablet 50 mg PO BID omeprazole 40 MG capsule,delayed release(DR/EC) 40 mg PO DAILY ondansetron 4 mg tablet,disintegrating 4 mg PO Q8H PRN (Reason: nausea and vomiting) Qty: 10 0RF lamotrigine 200 mg tablet 200 mg PO DAILY nabumetone 750 mg tablet 750 mg PO BID tizanidine 4 mg tablet 4 mg PO TID PRN PRN (Reason: Muscle Pain) spironolactone 25 mg tablet 25 mg PO DAILY lorazepam 1 mg tablet 1 mg PO BID oxycodone-acetaminophen [oxycodone-acetaminophen] 5-325 mg tablet 2 tab PO Q8H PRN PRN (Reason: Pain) 7 Days Qty: 20 0RF cephalexin [cephalexin] 500 mg capsule 500 mg PO Q12 3 Days Qty: 6 0RF phenazopyridine [Pyridium] 200 mg tablet 200 mg PO TID PRN PRN (Reason: Bladder Spasms) 7 Days Qty: 30 0RF Primary Care Provider: Tom Giraldo Referrals: Krystin Aggarwal MD [Med Staff - Active Staff] - As Needed Tom Giraldo MD [Primary Care Provider] - Activity Restrictions/Additional Instructions: Your work-up was largely normal today. There is no signs of obstructing kidney stone be causing your pain. Your urinalysis is not consistent with a UTI. As we discussed this could be an exacerbation of your chronic pain. You do have a lot of gas and stool in your GI tract which might be contributing to your pain but there is no signs of obstruction or infection and the GI tract. Please follow-up with your pain management doctor as well as your urologist. Return to the ER if you have a progression or worsening of your symptoms. Disposition Disposition: Home, Self Care Discharge Date/Time: 11/10/22 18:57
[2022-11-10] MEDS: Ketorolac 15 MG/ML Vial IV (15:30)
[2022-11-10] MEDS: Ondansetron 4 MG/2 ML Vial IV (15:30)
[2022-11-10] MEDS: Morphine 4 MG/ML Syringe 6 MG IV (15:30)
[2022-11-10 15:40] VITALS: BP 122/85; RESP 16
[2022-11-10 15:42] LABS: Absolute Lymphocyte Count 2.43 X10^3/uL (0.83-4.51); Absolute Neutrophil Count 7.4 X10^3/uL (2.0-7.7); Basophil# 0.09 X10^3/uL; Basophil% 0.8 % (0-1); Eosinophils% 0.9 % (0-5); Hematocrit 42.2 % (37-47); Hemoglobin 13.4 g/dL (12.0-15.0); Lymphocyte # 2.43 X10^3/ul (0.83-4.51); Lymphocyte % 21.6 % (19-41); Mean Corp Hgb Conc 31.8 g/dL (32-36); Mean Corpuscular Hgb 29.6 pg (27.0-32.0); Mean Corpuscular Volume 93.2 fL (81-99); Mean Platelet Vol. 9.6 fl (6.2-12.0); Monocyte% 8.9 % (0-10); NRBC Flagged by Analyzer 0 % (0-5); Neutrophil # 7.36 X10^3/uL (2.7-7.7); Neutrophil % 65.4 % (47-70); Platelet Count 395 K/mm3 (150-450); RBC Distribution Width CV 15.2 % (11.6-14.6); RBC Distribution Width SD 52.1 fl (35.1-43.9); Red Blood Count 4.53 M/mm3 (4.2-5.4); White Blood Count 11.3 K/mm3 (4.4-11.0)
[2022-11-10 15:52] LABS: Mucous, Urine 0 SEEN /hpf (<or=2+); Red Blood Cells-Urine 0 SEEN /hpf (0-5)
[2022-11-10 15:58] LABS: Color, Urine Yellow (Yellow); Glucose, Dipstick Normal (Normal); Ketone-Dipstick 5 mg/dl (Negative); Leukocyte Esterase-Dipstick 25 /ul (Negative); Nitrite-Dipstick Negative (Negative); Occult Blood-Urine Negative /ul (Negative); Protein-Dipstick 15 mg/dl (Negative); Specific Gravity, Urine 1.015 (1.002-1.030); Urine Bilirubin Dipstick Negative (Negative); Urine Clarity Clear (Clear); Urine Urobilinogen Normal (Normal)
[2022-11-10 16:02] LABS: ALB/GLOB Ratio 1.1 RATIO (0.9-2.4); AST(SGOT) 16 U/L (15-37); Alanine Aminotransfer ALT/SGPT 46 U/L (13-56); Albumin, Serum 3.8 g/dL (3.2-5.0); Alkaline Phosphatase 142 U/L (45-117); Anion Gap 6 (5-15); BUN 14 mg/dL (7-18); BUN/Creat Ratio 15.7 RATIO (10-20); Chloride 110 mmol/L (98-107); Creatinine, Serum 0.89 mg/dL (0.55-1.02); EST Glomerular Filtration Rate 74 mL/min (>60); Est Glom Filt Rate - Afr Amer 89 mL/min (>60); Estimated Creatinine Clearance 89.95 ml/min; Globulin 3.6 g/dL (2.2-4.2); Glucose 104 mg/dL (74-106); Lipase 20 U/L (13-75); Potassium 3.5 mmol/L (3.5-5.1); Protein, Total 7.4 g/dL (6.4-8.2); Sodium Level 140 mmol/L (136-145)
[2022-11-10 16:06] LABS: Calcium Oxalate Crystals Ur 1+ /hpf (<or=2+); Squamous Epithelial Cells - UA 0-5 SEEN /hpf (5-10); White Blood Cells 0-5 SEEN /hpf (0-5)
[2022-11-10 16:07] LABS: Bacteria RARE /hpf (None Seen)
[2022-11-10 17:51] VITALS: BP 118/82; RESP 16
[2022-11-10] MEDS: predniSONE 20 MG Tablet 40 MG PO (17:51)
[2022-11-10] MEDS: fentaNYL 100 MCG/2 ML Ampul 50 MCG IV (17:51)
[2022-11-10] MEDS: Dicyclomine 10 MG Capsule 20 MG PO (17:51)
== END 2022-11-10 18:57 | disposition home or self-care (01) ==
PROVIDERS: Emergency Provider Emergency Medicine; PCP Family Medicine; Visit Provider Emergency Medicine
DX: R10.30 Lower abdominal pain, unspecified (principal); I10 Essential (primary) hypertension; F41.9 Anxiety disorder, unspecified; K31.84 Gastroparesis; G89.29 Other chronic pain; N20.0 Calculus of kidney; E78.00 Pure hypercholesterolemia, unspecified; M79.7 Fibromyalgia; Z79.52 Long term (current) use of systemic steroids; F17.210 Nicotine dependence, cigarettes, uncomplicated; M54.50 Low back pain, unspecified
CPT/HCPCS: 74176; 80053; 81001; 83690; 85025; 87086; 87088; 96374; 96375; 99284; A4216; J2405

== ENCOUNTER → 2022-12-17 | Outpatient (CLI) | payer MEDICAID, SELFPAY ==
--- NOTE | 2022-12-17 15:09 | VDLE_ITS ---
Version 2 Reason For Study: Right calf pain RIGHT LEFT GSV is normal. CFV is compressible, spontaneous, phasic, CFV is compressible, spontaneous, phasic, competent, and demonstrates normal competent and demonstrates normal augmentation. augmentation. FV is compressible, spontaneous, phasic, competent and demonstrates normal augmentation. POP V is compressible, spontaneous, phasic, competent and demonstrates normal augmentation. T/P Trunk is compressible. PTV is compressible. RT PerV is compressible. Procedure This is a venous duplex using B-mode, color flow and spectral Doppler. Exam performed in department. A preliminary report was called and/or faxed to Dr. Moctezuma. VL/Venous Duplex US, Unilateral Interpretation Summary Deep veins of the right lower extremity are patent and compressible segmentally . There is no evidence of right lower extremity deep vein thrombosis. Valvular competence tena ears intact within the proximal deep venous system on the right . The right great saphenous vein a ppears patent and compressible segmentally. The left common femoral vein is patent and compressib le . Ordering Physician: Keron Moctezuma Referring Physician: Tom Giraldo Performed By: Zainab Waters RVT
--- NOTE | 2022-12-17 15:20 | RAD_ITS ---
EXAM: XR ABDOMEN, 1 VIEW CLINICAL INDICATION: Left flank TECHNIQUE: Frontal supine view of the abdomen/pelvis. COMPARISON: No relevant prior studies available. FINDINGS: LOWER THORAX: No acute pathology. GASTROINTESTINAL TRACT: Unremarkable. Non-obstructive. No bowel or stomach distention. ORGANS: Unremarkable as visualized. No organomegaly. No abnormal calcifications. BONES/JOINTS: No acute pathology. SOFT TISSUES: No acute pathology. OTHER FINDINGS: Right lower quadrant electronic battery pack. RAD/Abdomen Single View IMPRESSION: No acute findings. Electronically Signed: Marky Ram MD at 17:04 EDT ,
== END | disposition home or self-care (01) ==
LOC: CVS 15:08
PROVIDERS: PCP Family Medicine; Referring Provider Family Medicine; Visit Provider Family Medicine
DX: N20.0 Calculus of kidney (principal); M79.661 Pain in right lower leg
CPT/HCPCS: 74018; 93971

== ENCOUNTER 2023-01-23 08:51 | Outpatient (RCR) | payer MEDICAID, SELFPAY ==
--- NOTE | 2023-01-23 10:26 | HP.PTEVAL ---
Patient's Visit Information Visit Information Visit Information: BRIELLE LANCE is a 42 year old F referred to Physical Therapy by Dr. Tom Giraldo MD with a diagnosis of Debility, generalized weakness with need for WC assessment. Date of Evaluation: 01/23/23 Physical Therapist: Emiliano Toscano DPT Visit Plan Frequency: 1x/Week Duration: 1 Week Plan: Pt. was assessed for need of Motorized wheel chair. I my opinion I believe Brielle would benefit from use of motorized wheel chair. Her general mobility is limited to household distances due to pain in her back, BLE weakness and frequent falls. Subjective Subjective: Pt. is here today for her initial evaluation with diagnosis of frequent falls, general debility and weakness with need for power wheel chair. Pt. is having frequent falls up to a few times per week over the last month. Pt. reports that her foot gets caught on things and that her legs do give out on her. Pt. reports being disabled for ~10 years. She has been walking, but has been getting worse to a point she is falling frequently. Pt. has resulted to not leaving the home much due to pain and inability to walk the distances required. Pt. reports difficulty with sleeping as well. She is avoiding standing chores at home due to back pain. She is only walking short distances due ton leg/back pain and fear or falls. Pt. does not use stairs in home. Pt. is getting a ramp put in allowing for access into home. Pt. is in the process getting an aide to assist at home. Pain low back: Pain Intensity (Out of 10): 8 Pain Intensity Range: 8 and 10 Objective Objective: POSTURE: Pt. has general flexed posture. Pt. uses SPC for stability, does use a FWW at home. Pt. has decent core control in sitting posture. Pt. is able to sit independently. PALPATION: Pt. has a healing wound in her anterior franco from a fall, but does not appears to be infected. Rest is normal. NEURO: Pt. has 1+ DTR of BLE including Achilles and patellar. Pt. is unable to rise on heels and toes. Pt. reports decreased sensation in distal LEs, compared to her thighs. Pt. has normal sensation in UEs, except slight reduction distally, bilaterally. ROM: Pt. has normal B knee ROM and B shoulder. Tight B calves, but able to achieve ROM with in normal limits. MMT: RLE: ankle: DF 1/5, PF 3/5; knee: ext 4-/5, flexion 4-/5; hip: flexion 3/5, abd 3/5, ext 3/5. LLE: DF 3/5, PF 3/5; knee: ext 4-/5, flexion 4-/5; hip: flexion 4/5, abd 3/5, ext 3+/5. Core strength: poor. UE strength: 4-/5 throughout. Pt. has marked user experience architect strength loss (4.5# R side, 4.1# on L side) GAIT: pt. is able to ambulate with SPC with FANNIE, but is very methodical and has increased lateral sway with heavy use of cane. Pt. has marked decreased step length, flexed posture noted. Pt. was able to ambulate 70feet with SPC in 2:46sec. STAIRS: 2 steps step to pattern with 2 HR with Xavier from PT. At this point in time Brielle would benefit from a motorized WC to allow for safe and greater I mobility out in community. He has marked weakness in BLEs with drop foot on R side. Her limited stability with gait is her greatest pressing issue. He limited UE strength suggests inability to use a conventional WC further requiring need for a motorized wheel chair. Balance/Special Test Scores Lower Extremity Functional Score: 9 TUG Test Time Seconds: 53.53 30 Second Chair Rise Test Seconds: 4 Goals Goal 1:: STG: pt. to be assessed for need of motorized wheel chair. Goal Time Frame: 1 Week Rehabilitation Potential Physical Therapy Diagnosis: Debility, BLE weakness, difficulty with gait and ADLs with need for motorized WC for community ambulation. Rehabilitation Potential: Poor Anticipated Interventions Patient/Client Instruction: Educate patient on: Condition and Plan of Care For the Purpose of:: To reduce risk of recurrence, To improve safety, To improve health and function, To foster healthy habits, To improve decision making and To facilitate caregiver knowledge Text: Thank you for the opportunity to evaluate your patient. For Medicare and Medicare HMO plans, please review the plan of care and approve it. It will need to be FAXED BACK to us at [phone] for Medicare purposes. For Medicare only, by signing this I certify the plan of care. Please let me know if there are questions or concerns regarding this plan of care. Physician Signature: Date:
== END 2023-01-23 13:23 | disposition home or self-care (01) ==
LOC: PT 08:51
PROVIDERS: PCP Family Medicine; Referring Provider Family Medicine; Visit Provider Family Medicine
DX: M54.9 Dorsalgia, unspecified (principal); M53.1 Cervicobrachial syndrome; R29.6 Repeated falls
CPT/HCPCS: 97161

== ENCOUNTER 2023-02-09 18:25 | Emergency (ER) | payer MEDICAID, SELFPAY ==
[2023-02-09 18:46] VITALS: BP 127/92; PULSE 81; RESP 16; TEMP 36.9; O2SAT 96
--- NOTE | 2023-02-09 20:41 | ED.VIS.BACK ---
HPI History of Present Illness Chief Complaint: Back Informant: patient Onset/Context/Timing Onset: Days (2) Chronic pain exacerbated by: Fall today Timing: Continuous Quality: - (Stabbing) Location: Lumbar, Buttock and Right Leg Worsened by: improves with Movement Relieved by: Nothing Associated Symptoms Associated Symptoms: Radiation to Right Leg; Negative for Numbness, Tingling, Radiation to Left Leg, Fever, Abdominal Pain, Dysuria, Unable to Ambulate, Unable to Transfer, Urinary Retention, Urinary Incontinence, Constipation or Fecal Incontinence Narrative Narrative: Patient presents with back pain that has been getting worse over the past 2 days. Patient states it got worse acutely after she fell today. Patient describes her pain as stabbing. Patient states the pain radiates to her right thigh. Patient states it is mainly over the right lower lumbar area. Patient states it is worse with any movement. Patient states nothing has been helping. Patient has a history of chronic back pain and sees pain management. Patient states she has taken her pain medication with no improvement. Patient denies any bowel or bladder changes. Patient denies any saddle anesthesia. [facility] Medical History Anxiety Arthritis Back pain Bipolar disorder Blackout Chest pain Depression DVT (deep venous thrombosis) Fibromyalgia Gastroparalysis GERD (gastroesophageal reflux disease) High cholesterol History of edema History of pain when walking History of stress test HLD (hyperlipidemia) HTN (hypertension) IBS (irritable bowel syndrome) Incontinence Insomnia Kidney stones Kidney stones Loss of hearing Major depressive disorder, recurrent, unspecified Migraine OAB (overactive bladder) Opioid use disorder panic Personality disorder, unspecified Shortness of breath on exertion Smoker Ureteral calculus, right Walker as ambulation aid Wears dentures Wears glasses Home Medications gabapentin 300 mg capsule 600 mg PO TID neuropathy 08/09/16 [History Last Taken 09/18/22 06:00] nortriptyline 50 mg capsule (Pamelor) 100 mg PO QHS depression 10/13/17 [History Last Taken 04/05/21] topiramate 25 mg tablet 25 mg PO DAILY Check with primary doctor 11/24/18 [History Last Taken 04/05/21] duloxetine 30 mg capsule,delayed release (Cymbalta) 60 mg PO DAILY Check with primary doctor 06/02/19 [History Last Taken 09/18/22 06:00] propranolol 20 mg tablet 20 mg PO QHS Check with primary doctor 05/03/20 [History Last Taken 09/18/22 06:00] hydroxyzine HCl 100 mg tablet 50 mg PO BID Check with primary doctor 11/27/20 [History Last Taken 04/05/21] omeprazole 40 mg capsule,delayed release 40 mg PO DAILY Check with primary doctor 04/06/21 [History Last Taken 09/18/22 06:00] ondansetron 4 mg disintegrating tablet 4 mg PO Q8H PRN nausea and vomiting #10 tabs 04/15/21 [Rx Last Taken Unknown] lamotrigine 200 mg tablet 200 mg PO DAILY 08/02/22 [History Last Taken 09/18/22 06:00] lorazepam 1 mg tablet 1 mg PO BID 08/02/22 [History Last Taken Unknown] nabumetone 750 mg tablet 750 mg PO BID 08/02/22 [History Last Taken Unknown] spironolactone 25 mg tablet 25 mg PO DAILY 08/02/22 [History Last Taken Unknown] tizanidine 4 mg tablet 4 mg PO TID PRN PRN Muscle Pain 08/02/22 [History Last Taken Unknown] cephalexin 500 mg capsule 500 mg PO Q12 post-operative 3 days #6 CAPSULES 09/18/22 [Rx Last Taken Unknown] oxycodone-acetaminophen 5 mg-325 mg tablet 2 tab PO Q8H PRN PRN Pain 7 days #20 tabs 09/18/22 [Rx Last Taken Unknown] phenazopyridine 200 mg tablet (Pyridium) 200 mg PO TID PRN PRN Bladder Spasms 7 days #30 tabs 09/18/22 [Rx Last Taken Unknown] dicyclomine 20 mg tablet 20 mg PO TID PRN abdominal pain #20 tabs 11/10/22 [Rx Last Taken Unknown] prednisone 20 mg tablet 40 mg (2 x 20 mg) PO DAILY #8 TABLETS 11/10/22 [Rx Last Taken Unknown] Allergy/AdvReac Type Severity Reaction Status Date / Time aspirin AdvReac Nausea Verified 02/09/23 18:46 Family History Father Hypertension Heart disease Brother CAD (coronary artery disease) Myocardial infarction Mother Heart disease Myocardial infarction Surgical History History of cholecystectomy History of esophagogastroduodenoscopy (EGD) History of repair of hiatal hernia S/P laparoscopic cholecystectomy Social History household members: children Smoking Status: Current every day smoker tobacco type: cigarettes alcohol intake: never substance use type: does not use ROS ROS ED Constitutional Constitutional ED: Denies chills or fever(s) Eyes Eyes: Reports diplopia; Denies blurry vision ENT ENT ED: Denies rhinorrhea or sore throat Cardiovascular Cardiovascular: Denies chest pain or palpitations Respiratory/Chest Respiratory/Chest: Denies cough or dyspnea Gastrointestinal Gastrointestinal: Denies nausea or vomiting Genitourinary Genitourinary ED: Denies dysuria or hematuria Musculoskeletal Musculoskeletal: Reports back pain; Denies neck pain Integumentary Denies abscess or rash Neurologic Neurologic: Denies headache(s) or weakness Allergic/Immunologic Allergic/Immunologic ED: Denies mouth swelling or urticaria EXAM Physical Exam Const Vital Signs: 02/09/23 18:46 02/09/23 21:01 Temperature 98.5 F Temperature Source Temporal Pulse Rate 81 77 Respiratory Rate 16 18 Blood Pressure 127/92 H 132/87 H Blood Pressure Mean 103 102 Pulse Ox 96 96 Oxygen Delivery Method Room Air Room Air Positive well nourished and well developed General Appearance ED: well developed and NAD HEENT Reports moist mucous membranes Neck supple and no JVD Back/Spine Back/Spine Narrative: There is tenderness over the right lower lumbar paraspinal muscles. There is no midline tenderness but there is no bony crepitance or step-off. Range of motion was limited in all motions of the lumbar spine secondary to pain. Strength is 5/5 bilaterally in the lower extremities. There are no sensory deficits noted. Lumbar Spine / Lower Back: ROM limited Extremity normal to inspection General Extremety ED: Negative for tenderness Neuro oriented x3 Sensorium / Orientation: alert Motor Exam: strength 5/5 throughout Psych mental status grossly normal Skin Skin Narrative: There is a superficial abrasion noted over the right medial gluteal area. There is no surrounding erythema. There is no discharge or drainage. There is no bleeding noted. MDM MDM MDM Narrative Medical decision making narrative: Patient was given injection of morphine here. Patient was instructed to use ice to the area. Patient was instructed to follow-up with her primary care physician and pain management physician in 3 to 5 days. Patient was instructed to return if worse in any way. Patient understood and was agreeable with the plan. All questions were answered. Discharge Plan Triage Chief Complaint: Back ED Provider: Sigifredo Ocasio Dx/Rx/DC Orders Clinical Impression: Chronic lumbar disc degeneration, Acute exacerbation of chronic low back pain Instructions: ED Back Pain (Acute or Chronic), ED Chronic Pain, ED Pain Management: Chronic Prescriptions: No Action gabapentin 300 MG capsule 600 mg PO TID Patient Comments: back pain nortriptyline [Pamelor] 50 MG capsule 100 mg PO QHS topiramate 25 tablet 25 mg PO DAILY duloxetine [Cymbalta] 30 MG capsule 60 mg PO DAILY Rx Instructions: take (3) 30mg capsules per day to make 90mg dose propranolol 20 MG tablet 20 mg PO QHS hydroxyzine HCl 100 mg Tablet 50 mg PO BID omeprazole 40 MG capsule,delayed release(DR/EC) 40 mg PO DAILY ondansetron 4 mg tablet,disintegrating 4 mg PO Q8H PRN (Reason: nausea and vomiting) Qty: 10 0RF lamotrigine 200 mg tablet 200 mg PO DAILY nabumetone 750 mg tablet 750 mg PO BID tizanidine 4 mg tablet 4 mg PO TID PRN PRN (Reason: Muscle Pain) spironolactone 25 mg tablet 25 mg PO DAILY lorazepam 1 mg tablet 1 mg PO BID oxycodone-acetaminophen [oxycodone-acetaminophen] 5-325 mg tablet 2 tab PO Q8H PRN PRN (Reason: Pain) 7 Days Qty: 20 0RF cephalexin [cephalexin] 500 mg capsule 500 mg PO Q12 3 Days Qty: 6 0RF phenazopyridine [Pyridium] 200 mg tablet 200 mg PO TID PRN PRN (Reason: Bladder Spasms) 7 Days Qty: 30 0RF dicyclomine 20 mg tablet 20 mg PO TID PRN (Reason: abdominal pain) Qty: 20 0RF prednisone 20 mg tablet 40 mg PO DAILY Qty: 8 0RF Primary Care Provider: Tom Giraldo Referrals: Tom Giraldo MD [Primary Care Provider] - 3-5 Days Disposition Disposition: Home, Self Care
[2023-02-09] MEDS: Morphine 4 MG/ML Syringe IM ×2 (20:57→21:33)
[2023-02-09 20:59] VITALS: BMI 25.4
[2023-02-09 21:01] VITALS: BP 132/87; PULSE 77; RESP 18; O2SAT 96
[2023-02-09 21:53] VITALS: BP 126/78; PULSE 79; RESP 18; O2SAT 94
== END 2023-02-09 21:54 | disposition home or self-care (01) ==
PROVIDERS: Emergency Provider Emergency Medicine; PCP Family Medicine; Visit Provider Emergency Medicine
DX: M51.36 Other intervertebral disc degeneration, lumbar region (principal); G89.29 Other chronic pain; E78.00 Pure hypercholesterolemia, unspecified; I10 Essential (primary) hypertension
CPT/HCPCS: 96372; 99282

== ENCOUNTER 2023-02-21 17:00 | Emergency (ER) | payer MEDICAID, SELFPAY ==
[2023-02-21 17:02] VITALS: BP 155/109; PULSE 102; RESP 16; TEMP 36.8; O2SAT 97
--- NOTE | 2023-02-21 17:15 | ED.VIS.FALL ---
HPI HPI - Fall History of Present Illness Chief Complaint: Fall Narrative Narrative: Patient has a history of chronic back pain, her pain got worse she called pain management who told her to come to the ED. She says her pain is so bad that she falls at times. She has a scrape over her knee but she does not have a lot of knee pain. [facility] Medical History Anxiety Arthritis Back pain Bipolar disorder Blackout Chest pain Depression DVT (deep venous thrombosis) Fibromyalgia Gastroparalysis GERD (gastroesophageal reflux disease) High cholesterol History of edema History of pain when walking History of stress test HLD (hyperlipidemia) HTN (hypertension) IBS (irritable bowel syndrome) Incontinence Insomnia Kidney stones Kidney stones Loss of hearing Major depressive disorder, recurrent, unspecified Migraine OAB (overactive bladder) Opioid use disorder panic Personality disorder, unspecified Shortness of breath on exertion Smoker Ureteral calculus, right Walker as ambulation aid Wears dentures Wears glasses Home Medications gabapentin 300 mg capsule 600 mg PO TID neuropathy 08/09/16 [History Last Taken 09/18/22 06:00] nortriptyline 50 mg capsule (Pamelor) 100 mg PO QHS depression 10/13/17 [History Last Taken 04/05/21] topiramate 25 mg tablet 25 mg PO DAILY Check with primary doctor 11/24/18 [History Last Taken 04/05/21] duloxetine 30 mg capsule,delayed release (Cymbalta) 60 mg PO DAILY Check with primary doctor 06/02/19 [History Last Taken 09/18/22 06:00] propranolol 20 mg tablet 20 mg PO QHS Check with primary doctor 05/03/20 [History Last Taken 09/18/22 06:00] hydroxyzine HCl 100 mg tablet 50 mg PO BID Check with primary doctor 11/27/20 [History Last Taken 04/05/21] omeprazole 40 mg capsule,delayed release 40 mg PO DAILY Check with primary doctor 04/06/21 [History Last Taken 09/18/22 06:00] ondansetron 4 mg disintegrating tablet 4 mg PO Q8H PRN nausea and vomiting #10 tabs 04/15/21 [Rx Last Taken Unknown] lamotrigine 200 mg tablet 200 mg PO DAILY 08/02/22 [History Last Taken 09/18/22 06:00] lorazepam 1 mg tablet 1 mg PO BID 08/02/22 [History Last Taken Unknown] nabumetone 750 mg tablet 750 mg PO BID 08/02/22 [History Last Taken Unknown] spironolactone 25 mg tablet 25 mg PO DAILY 08/02/22 [History Last Taken Unknown] tizanidine 4 mg tablet 4 mg PO TID PRN PRN Muscle Pain 08/02/22 [History Last Taken Unknown] cephalexin 500 mg capsule 500 mg PO Q12 post-operative 3 days #6 CAPSULES 09/18/22 [Rx Last Taken Unknown] oxycodone-acetaminophen 5 mg-325 mg tablet 2 tab PO Q8H PRN PRN Pain 7 days #20 tabs 09/18/22 [Rx Last Taken Unknown] phenazopyridine 200 mg tablet (Pyridium) 200 mg PO TID PRN PRN Bladder Spasms 7 days #30 tabs 09/18/22 [Rx Last Taken Unknown] dicyclomine 20 mg tablet 20 mg PO TID PRN abdominal pain #20 tabs 11/10/22 [Rx Last Taken Unknown] prednisone 20 mg tablet 40 mg (2 x 20 mg) PO DAILY #8 TABLETS 11/10/22 [Rx Last Taken Unknown] Allergy/AdvReac Type Severity Reaction Status Date / Time aspirin AdvReac Nausea Verified 02/09/23 18:46 Family History Father Hypertension Heart disease Brother CAD (coronary artery disease) Myocardial infarction Mother Heart disease Myocardial infarction Surgical History History of cholecystectomy History of esophagogastroduodenoscopy (EGD) History of repair of hiatal hernia S/P laparoscopic cholecystectomy Social History household members: children Smoking Status: Current every day smoker tobacco type: cigarettes alcohol intake: never substance use type: does not use ROS ROS ED ROS Narrative Past medical history: Reviewed Medications: Reviewed Social history: Noncontributory Review of systems: All systems negative except as indicated General: No fever. No head injury Eyes: No visual changes ENT: No upper airway congestion, normal voice Neck: No neck pain Cardiovascular: No chest pain Respiratory: No shortness of breath or cough Gastrointestinal: No abdominal pain, nausea vomiting or diarrhea Genitourinary: No dysuria Musculoskeletal: Back pain as in HPI Skin: No rash Neurological: No memory loss, confusion or any focal weakness EXAM Physical Exam Narrative Exam Narrative: Physical exam General: Patient is actively crying Head: Normocephalic, Atraumatic Eyes: Conjunctiva not pale ENT: Moist mucous membranes Neck: Supple, Nontender, No lymphadenopathy Cardiovascular: Regular rate, Regular rhythm Respiratory: No distress, CTA bilaterally Abdomen: Soft, Nontender, Nondistended Back: Right-sided back pain. It is paraspinal. Extremities: Nontender, No edema Skin: Normal color, No rash Neurological: Normal patellar and Achilles reflexes. Negative straight leg test although it is difficult to fully evaluate secondary to pain. Normal sensation. Normal plantarflexion dorsiflexion of both feet and great toes Psychological: Normal affect Const Vital Signs: 02/21/23 17:02 02/21/23 17:06 Temperature 98.3 F Temperature Source Oral Pulse Rate 102 H Respiratory Rate 16 Respiratory Effort Normal Non-Labored Respiratory Depth Normal Respiratory Pattern Normal Blood Pressure 155/109 H Blood Pressure Mean 124 Pulse Ox 97 Oxygen Delivery Method Room Air MDM MDM MDM Narrative Medical decision making narrative: Patient has chronic recurrent back pain, she does not have any red flags. There is no fevers or trauma therefore x-ray or MRI is not needed I am not worried about any kind of fracture or spinal epidural abscess or discitis. There is no evidence of cauda equina on exam. We will treat with analgesia and discharge her. Only blood work is needed. Discharge Plan Triage Chief Complaint: Fall ED Provider: Tom Hernandez Dx/Rx/DC Orders Clinical Impression: Chronic lumbar disc degeneration, Anxiety, Fibromyalgia Instructions: Back Exercises: Back Release Prescriptions: No Action gabapentin 300 MG capsule 600 mg PO TID Patient Comments: back pain nortriptyline [Pamelor] 50 MG capsule 100 mg PO QHS topiramate 25 tablet 25 mg PO DAILY duloxetine [Cymbalta] 30 MG capsule 60 mg PO DAILY Rx Instructions: take (3) 30mg capsules per day to make 90mg dose propranolol 20 MG tablet 20 mg PO QHS hydroxyzine HCl 100 mg Tablet 50 mg PO BID omeprazole 40 MG capsule,delayed release(DR/EC) 40 mg PO DAILY ondansetron 4 mg tablet,disintegrating 4 mg PO Q8H PRN (Reason: nausea and vomiting) Qty: 10 0RF lamotrigine 200 mg tablet 200 mg PO DAILY nabumetone 750 mg tablet 750 mg PO BID tizanidine 4 mg tablet 4 mg PO TID PRN PRN (Reason: Muscle Pain) spironolactone 25 mg tablet 25 mg PO DAILY lorazepam 1 mg tablet 1 mg PO BID oxycodone-acetaminophen [oxycodone-acetaminophen] 5-325 mg tablet 2 tab PO Q8H PRN PRN (Reason: Pain) 7 Days Qty: 20 0RF cephalexin [cephalexin] 500 mg capsule 500 mg PO Q12 3 Days Qty: 6 0RF phenazopyridine [Pyridium] 200 mg tablet 200 mg PO TID PRN PRN (Reason: Bladder Spasms) 7 Days Qty: 30 0RF dicyclomine 20 mg tablet 20 mg PO TID PRN (Reason: abdominal pain) Qty: 20 0RF prednisone 20 mg tablet 40 mg PO DAILY Qty: 8 0RF Primary Care Provider: Tom Giraldo Referrals: Tom Giraldo MD [Primary Care Provider] - Disposition Disposition: Home, Self Care
[2023-02-21] MEDS: Ketorolac 30 MG/ML Syringe IM (17:22)
[2023-02-21] MEDS: cycloBENZAPRine HCl 10 MG Tablet PO (17:23)
[2023-02-21] MEDS: morphine 10 MG/ML Syringe IM (17:23)
--- NOTE | 2023-02-21 18:01 | ED.RN ---
PT REPORTS PAIN MEDS DID NOT HELP. PT IS AMB IN HALLS W/OUT DIFFICULTY NOTED. GAIT STEADY W/QUICK PACE. NO CRYING NOTED.
== END 2023-02-21 18:03 | disposition home or self-care (01) ==
PROVIDERS: Emergency Provider Emergency Medicine; PCP Family Medicine; Visit Provider Emergency Medicine
DX: M51.36 Other intervertebral disc degeneration, lumbar region (principal); M79.7 Fibromyalgia; I10 Essential (primary) hypertension; F41.9 Anxiety disorder, unspecified; E78.00 Pure hypercholesterolemia, unspecified; F17.210 Nicotine dependence, cigarettes, uncomplicated; G89.29 Other chronic pain
CPT/HCPCS: 96372; 99284

== ENCOUNTER → 2023-02-25 | Outpatient (CLI) | payer MEDICAID, SELFPAY ==
--- NOTE | 2023-02-25 16:40 | RAD_ITS ---
STUDY: X-RAY - ABDOMEN/PELVIS REASON FOR EXAM: Female, 42 years old. ABD PAIN TECHNIQUE: AP supine and upright views of the abdomen and pelvis. COMPARISON: CT scan 11/10/2022 FINDINGS: Normal visualized lung bases. There is an unremarkable bowel gas pattern. Unusual pattern of very faint density in the right lower quadrant suggestive of minimal contrast in the bowel, question any recent contrast administration. There is no demonstrated free abdominal air. Numerous small calcifications related to the renal shadows consistent with numerous renal stones. The visualized liver, spleen and kidneys are grossly normal in size and morphology. Power unit of epidural stimulator seen projecting over the right lower quadrant and leads terminating in the lower thoracic spine. Normal soft tissue structures. Normal visualized osseous structures. RAD/Abd Inc Decub and/or Erect IMPRESSION: No definite acute or significant abnormality seen. Electronically Signed: Jerry Yancey MD at 17:55 EDT ,
[2023-02-25 17:59] LABS: Absolute Lymphocyte Count 2.05 X10^3/uL (0.83-4.51); Absolute Neutrophil Count 9.3 X10^3/uL (2.0-7.7); Basophil% 0.8 % (0-1); Eosinophils% 0.8 % (0-5); Hematocrit 49.9 % (37-47); Hemoglobin 15.5 g/dL (12.0-15.0); Lymphocyte # 2.05 X10^3/ul (0.83-4.51); Lymphocyte % 16.6 % (19-41); Mean Corp Hgb Conc 31.1 g/dL (32-36); Mean Corpuscular Volume 90.1 fL (81-99); Mean Platelet Vol. 10.4 fl (6.2-12.0); Monocyte# 0.71 X10^3/uL; Monocyte% 5.7 % (0-10); NRBC Flagged by Analyzer 0 % (0-5); Neutrophil % 75.4 % (47-70); Platelet Count 391 K/mm3 (150-450); RBC Distribution Width CV 16.2 % (11.6-14.6); RBC Distribution Width SD 53.7 fl (35.1-43.9); Red Blood Count 5.54 M/mm3 (4.2-5.4); White Blood Count 12.4 K/mm3 (4.4-11.0)
[2023-02-25 18:30] LABS: Anion Gap 9 (5-15); BUN 17 mg/dL (7-18); BUN/Creat Ratio 17.9 RATIO (10-20); Chloride 106 mmol/L (98-107); Creatinine, Serum 0.95 mg/dL (0.55-1.02); EST Glomerular Filtration Rate 69 mL/min (>60); Est Glom Filt Rate - Afr Amer 83 mL/min (>60); Glucose 112 mg/dL (74-106); Potassium 3.7 mmol/L (3.5-5.1); Sodium Level 138 mmol/L (136-145)
== END | disposition home or self-care (01) ==
PROVIDERS: PCP Family Medicine; Referring Provider Family Medicine; Visit Provider Family Medicine
DX: R10.9 Unspecified abdominal pain (principal)
CPT/HCPCS: 36415; 74019; 80048; 85025

== ENCOUNTER → 2023-03-10 | Outpatient (CLI) | payer MEDICAID, SELFPAY ==
--- NOTE | 2023-03-10 10:07 | NEURO ---
NCS and/or EMG Patient Report Ordering Doctor: Tom Giraldo DATE OF SERVICE: 03/10/23 Clinical Summary: 42 year old female presenting with complaints of bilateral hand weakness along with hand pain. This EMG/NCS was performed to evaluate for right/left carpal tunnel syndrome. Nerve Conduction Studies Summary: The right ulnar-D5 SNAP distal latency was prolonged. Otherwise, nerve conduction studies in the bilateral upper extremities were within normal ranges. Needle Examination Summary: There was a higher proportion of motor unit action potentials with reduced recruitment, increased amplitude, increased duration, and polyphasia in the right C8 myotome. Otherwise, the patient exhibited reduced motor unit firing rates in multiple sampled muscles, which can be seen in the setting of reduced effort and/or pain intolerance. Impression: There is electrodiagnostic evidence of the following - 1) Chronic, right C8 radiculopaty. There is no electrodiagnostic evidence of a right/left carpal tunnel syndrome. Multi Select Codes Neurology Neurology Interp Codes: 58145-63 Musc test done w/n test comp (interp) (2) and 60462-36 Nrv cndj test 11-12 studies (interp)
== END | disposition home or self-care (01) ==
PROVIDERS: PCP Family Medicine; Referring Provider Family Medicine; Visit Provider Family Medicine
DX: R29.898 Other symptoms and signs involving the musculoskeletal system (principal)
CPT/HCPCS: 95886; 95913

== ENCOUNTER 2023-04-16 05:48 | Day surgery (SDC) | payer MEDICAID, SELFPAY ==
[2023-04-16] VITALS (7 sets, daily range): BP systolic 94–120; BP diastolic 44–90; PULSE 72–97; RESP 14–18; TEMP 35.9–36.6; O2SAT 93–98; BMI 23.4
[2023-04-16 06:25] LABS: Internal QC Validated? YES +Cl - CLEAR BKGD; Pregnancy, Urine Negative Negative
[2023-04-16] MEDS: Lactated Ringers 1,000 ML 15 ML IV ×2 (06:35→09:18)
--- NOTE | 2023-04-16 07:30 | CALC_PTH ---
PATIENT: KARLA LANCE LOC: [facility] [place] U#:[id number] AGE/SX: 42/F ROOM: RE04/16/[address]: Dr. Krystin Aggarwal MD : [id number] BED: DIS: 04/16/2023 SPEC #: [id number] RECD: 04/16/23 10:55 STATUS: KIRAN ARMENDARIZ #: [id number] NOLBERTO: 04/16/23 07:[address]: Krystin Aggarwal DEPT: SURGICAL PATHOLOGY RECD BY: Sirisha Garcia ENTERED: 04/16/23 13:08 SP TYPE: Calculi OTHR DR: Dr. Tom Giraldo MD Tissues: CALCULI Procedures: Surgery Specimen Level I HEADER OPERATION: Ureteroscopy, Basket extraction, Stent, laser PRE-OP DIAGNOSIS: Calculus of kidney, Low back pain TISSUE SUBMITTED: Renal Calculi GROSS DIAGNOSIS Renal calculus, removal: Minute fragment of unremarkable calculus (gross diagnosis only). AM:heidi 04/17/2023 COMMENT The calculus is submitted in its entirety for chemical stone analysis. The results from this study will be reported separately. GROSS DESCRIPTION Received without fixative labeled with the patient's name and designated calculus. The specimen consists of a black calculus measuring <0.1 x <0.1 x <0.1 cm. The entire specimen is submitted for stone analysis. / AM:heidi 04/16/2023 CPT: 42366
[2023-04-16] MEDS: Cefazolin 2 GM in 0.9% Normal Saline (100mL Bag) 100 ML IV (07:32)
--- NOTE | 2023-04-16 08:14 | DCINST_ITS ---
Discharge Instructions Diet Discharge Diet: No restrictions Activity Discharge Activity: Return to Normal Activity Dressing / Incision Call your doctor if you observe: Fever of 101 or Higher, Inability to urinate and Inability to have a bowel movement Follow Up Care Please Follow Up With: Krystin Aggarwal MD When: The office will call to make arrangements for follow-up and stent removal Test Results: Test results from this visit will be discussed in further detail at your follow- up appointment, if applicable. Discharge Plan Admission Attending Provider: Krystin Aggarwal Primary Care Provider: Tom Giraldo Discharge Orders/Prescriptions Prescriptions: New ondansetron HCl [ondansetron HCl] 8 mg tablet 8 mg PO Q8H PRN PRN (Reason: Nausea) 7 Days Qty: 20 0RF oxycodone-acetaminophen [Percocet] 5-325 mg tablet 1 tab PO Q8H PRN (Reason: pain) 3 Days Qty: 10 0RF cephalexin [cephalexin] 500 mg capsule 500 mg PO Q12 3 Days Qty: 6 0RF phenazopyridine [Pyridium] 200 mg tablet 200 mg PO TID PRN PRN (Reason: Bladder Spasms) 7 Days Qty: 30 0RF Continued gabapentin 300 MG capsule 600 mg PO TID Patient Comments: back pain nortriptyline [Pamelor] 50 MG capsule 100 mg PO QHS topiramate 25 tablet 25 mg PO QHS duloxetine [Cymbalta] 30 MG capsule 60 mg PO DAILY Rx Instructions: take (3) 30mg capsules per day to make 90mg dose propranolol 20 MG tablet 20 mg PO QHS omeprazole 40 MG capsule,delayed release(DR/EC) 40 mg PO DAILY ondansetron 4 mg tablet,disintegrating 4 mg PO Q8H PRN (Reason: nausea and vomiting) Qty: 10 0RF lamotrigine 200 mg tablet 200 mg PO DAILY tizanidine 4 mg tablet 4 mg PO TID PRN PRN (Reason: Muscle Pain) spironolactone 25 mg tablet 25 mg PO DAILY lorazepam 1 mg tablet 1 mg PO BID PRN (Reason: anxiety) oxycodone-acetaminophen 5-325 mg tablet 2 tab PO Q8H PRN PRN (Reason: Pain) 7 Days Qty: 20 0RF dicyclomine 20 mg tablet 20 mg PO TID PRN (Reason: abdominal pain) Qty: 20 0RF Referrals / Follow Up: Tom Giraldo MD [Primary Care Provider] - Disposition Disposition (needs filled in before D/C Order can be placed): Home, Self Care
--- NOTE | 2023-04-16 08:18 | PCM.OPRPT ---
Report of Operation Date of Procedure: 04/16/23 Pre-Operative Diagnosis: Left renal stones, bilateral flank pain Post-Operative Diagnosis: Bilateral renal calculi Surgery/Procedure Performed:: Cystoscopy, bilateral ureteroscopy, bilateral stone basket extraction, left ureteral stent insertion Surgeon: Krystin Aggarwal Type of Anesthesia: General Specimen's removed: 3 very small punctate stones, 2 from the left kidney and 1 from the right Description of Procedure: The patient is a 42-year-old female well-known to me with a longstanding history of stones. She has been having increasing flank pain on both sides. Her most recent CT scan showed very small stones in the left kidney and nothing in the right. She is here today for removal of these stones. Informed consent was obtained. The patient was taken to the operating room and placed on the operating room table. Anesthesia monitored the head, neck, airway, IV access and vital signs throughout the case. Once anesthesia was appropriate ministered, the patient was placed into dorsolithotomy position was prepped and draped in usual sterile fashion. At this time the cystoscope was inserted through the urethra into the urinary bladder under direct visualization. The mucosa was visualized in its entirety revealing no evidence of mass, erythema or ulceration or foreign body. 2 separate 0.035 Glidewire's were inserted through the left ureteral orifice into the renal pelvis is seen on fluoroscopy. The flexible ureteroscope was passed over one of the wires and advanced easily all the way into the kidney. Each calyx was was directly visualized and there were 2 punctate stones identified. Using a basket, these were removed. One of the stones was about the size of a pepper flake was sent for evaluation. The other stone disintegrated in the bladder. At this time the ureteroscope was gently inserted into the patient's right ureteral orifice and advanced to the renal pelvis without difficulty. 1 stone was identified, it was grasped and removed. The stone crumbled and was unable to be sent for evaluation. It was approximately 1 mm in size. At this time using the safety wire on the left side a 4.5 Dominican by 28 cm JJ stent was inserted without difficulty with good positioning in the renal pelvis as well as the urinary bladder. With only 1 intubation on the right ureter with no evidence of difficulty or trauma, the decision was made to leave her without a ureteral stent. The patient's bladder was then emptied and the cystoscope was removed. She was awakened and taken to the recovery room in good condition. There were no complications during this procedure. Grafts/Implants Used: left 4.5 x 28cm stent Complications None Admit VTE Documentation VTE Present on Admission: Yes VTE Mechan Device Prophylaxis: SCD's VTE Pharm Prophylaxis ordered?: No Reason prophylaxis not ordered:: Treatment Not Indicated
[2023-04-16] MEDS: Oxycodone/Apap 5/325 Tablet PO (09:50)
[2023-05-12 13:59] LABS: Source KIDNEY
== END 2023-04-16 10:39 | disposition home or self-care (01) ==
LOC: SDC 05:49 → AC 05:51
PROVIDERS: Anesthesiology; PCP Family Medicine; Referring Provider Urology; Visit Provider Urology
PROC: (CPT 52352; principal; 2023-04-16 07:20)
DX: N20.0 Calculus of kidney (principal); I10 Essential (primary) hypertension; M79.7 Fibromyalgia; F17.200 Nicotine dependence, unspecified, uncomplicated; Z79.899 Other long term (current) drug therapy; Z87.442 Personal history of urinary calculi
CPT/HCPCS: 52320; 00918; 76000; 81025; 82360; 88300; J7120; J2405

== ENCOUNTER 2023-04-24 07:57 | Outpatient (RCR) | payer MEDICAID, SELFPAY ==
--- NOTE | 2023-04-24 10:53 | HP.PTEVAL_ITS ---
Patient's Visit Information Visit Information Visit Information: KARLA LANCE is a 42 year old F referred to Physical Therapy by Dr. Tom Giraldo MD with a diagnosis of Weakness, LBP, frequent falls. Date of Evaluation: 04/24/23 Physical Therapist: Marky Guzman PT, ATC Visit Plan Frequency: 1x/Week Duration: 1 Week Plan: Pt was evaluated today for a power wheelchair. I believe a power wheelc hair is appropriate for this individual to aid with her mobility in and out of her house. The power wheelchair will also allow her to become more independent with her IADL's. Subjective Subjective: Pt reports she has noticed decreased mobility over the past year. Pt reports she is limited secondary to LBP, B LE radiculopathy, LE weakness, hip pain, and hand weakness. Pt reports she has also suffered multiple falls over this time span. Pt reports she has been to the ER at least 3 times over the past month secondary to falling. Pt reports she has to ambulate with a cane to assist in her mobility. Pt reports she also has a rollator that she uses if she performs community ambulation secondary to the fact that she is unable to ambulate very far secondary to all of her conditions. Pt reports she also has R foot drop in her R LE which also has lead to some of her falls. Pt reports she is unable to shower, prepare meals, or do laundry at this time secondary to her pain. Pt believes if she had a motorized wheel chair, she would be able to perform some of her IADL's. Pt is 5' 10 tall and weighs 165 pounds. Pt rates her pain as follows: UE's 5/10, LBP 9/10, LE's 8/10. Pt has fibromyalgia Objective Objective: Neuro: B UE is WNL to light touch throughout. B LE is hyposensitive throughout to light touch. B bicipital and patellar reflex= 2/3. Posture: Pt sits with forward head protrusion, increased thoracic spine kyphosis, and decreased lumbar spine lordosis. MMT: B UE's and LE's are significantly weak being rated at 3-/5 throughout ROM: UE's B shoulder flex= 110 degrees, abduction= 90, external rotation= 0, internal rotation= limited to T12 region. LE's B hip flex= 30 degrees, abduction and adduction are WNL when compared bilaterally, knee flex= 90, and knee ext= - 10 degrees Gait: Pt is able to ambulate approximately 100 feet with a cane and CGAx1. Pt displays a very slow cadance and a step to pattern. Pt had to stop at that time secondary to fatigue, B UE radiculopathy, and LBP Transfers: Pt is able to perform sit to stand transfers with the use of her UE's. Goals Goal 1:: N/A Rehabilitation Potential Physical Therapy Diagnosis: Pt is severely limited with her mobility at this time secondary to pathology to several segments of her body. Rehabilitation Potential: Good Anticipated Interventions Text: Thank you for the opportunity to evaluate your patient. For Medicare and Medicare HMO plans, please review the plan of care and approve it. It will need to be FAXED BACK to us at [phone] for Medicare purposes. For Medicare only, by signing this I certify the plan of care. Please let me know if there are questions or concerns regarding this plan of care. Physician Signature: Date:
== END 2023-04-24 19:00 | disposition home or self-care (01) ==
LOC: PT 07:57
PROVIDERS: PCP Family Medicine; Referring Provider Family Medicine; Visit Provider Family Medicine
DX: R53.1 Weakness (principal); M54.9 Dorsalgia, unspecified; Z91.81 History of falling
CPT/HCPCS: 97161

== ENCOUNTER → 2023-07-06 | Outpatient (CLI) | payer MEDICAID, SELFPAY ==
--- NOTE | 2023-07-06 13:08 | RAD_ITS ---
INDICATION: STONES/PAIN COMPARISON: None. FINDINGS: 2 frontal views of the abdomen. Large amount of stool throughout the colon with focally distended gas containing splenic flexure of the colon. No obvious free air. No definite suspicious calcifications. No mass appreciated. RAD/Abdomen Single View IMPRESSION: Large amount of stool throughout the colon with focally distended gas containing splenic flexure of the colon, ileus versus obstruction. Electronically Signed: Dixon Myrick MD at 2:27 EST ,
[2023-07-06 16:20] LABS: Anion Gap 4 (5-15); BUN 15 mg/dL (7-18); BUN/Creat Ratio 14.2 RATIO (10-20); Calcium,Total 9.3 mg/dL (8.5-10.1); Chloride 108 mmol/L (98-107); Creatinine, Serum 1.06 mg/dL (0.55-1.02); EST Glomerular Filtration Rate 60 mL/min (>60); Est Glom Filt Rate - Afr Amer 73 mL/min (>60); Glucose 113 mg/dL (74-106); Potassium 4.1 mmol/L (3.5-5.1); Sodium Level 138 mmol/L (136-145)
== END | disposition home or self-care (01) ==
PROVIDERS: PCP Family Medicine; Referring Provider Urology; Visit Provider Urology
DX: R10.9 Unspecified abdominal pain (principal); R39.89 Other symptoms and signs involving the genitourinary system; N20.0 Calculus of kidney
CPT/HCPCS: 36415; 74018; 80048

== ENCOUNTER → 2023-10-15 | Outpatient (CLI) | payer MEDICAID, SELFPAY ==
[2023-10-15 15:59] LABS: Erythrocyte Sedimentation Rate 12 mm/hr (0-30)
[2023-10-15 16:25] LABS: Vitamin B12 1586 pg/mL (211-911)
[2023-10-15 17:03] LABS: CPK Total, Creatine Kinase 169 U/L (26-192); CRP 7.36 mg/L (0.0-3.0); Ferritin 19 ng/mL (8-252); Iron 39 ug/dL (50-170); Magnesium 2.4 mg/dL (1.6-2.6); Rheumatoid Factor < 10.0 IU/mL (<15); Thyroid Stim Hormone (TSH) 0.46 uIU/mL (0.358-3.74)
[2023-10-19 13:07] LABS: ANTINUCLEAR ANTIBODIES DIRECT Negative (Negative); Vitamin D 1,25-Dihydroxy 76.1 pg/mL (24.8-81.5)
[2023-10-21 16:10] LABS: Aldolase 6.8 U/L (3.3-10.3); Free Kappa Light Chains 14.9 mg/L (3.3-19.4); Free Lambda Light Chains 15.4 mg/L (5.7-26.3); Myoglobin, Serum 36 ng/mL (25-58); Vitamin B1, Thiamine 126.1 nmol/L (66.5-200.0)
== END | disposition home or self-care (01) ==
LOC: MTLAB 11:35
PROVIDERS: PCP Family Medicine; Referring Provider Psychiatry & Neurology Neurology; Visit Provider Psychiatry & Neurology Neurology
DX: M79.7 Fibromyalgia (principal); D75.1 Secondary polycythemia
CPT/HCPCS: 86225; 86235 ×5; 36415; 82085; 82140; 82550; 82607; 82652; 82728; 82746; 83036; 83540; 83735; 83874; 83883; 84425; 84443; 85652; 86038; 86140; 86431

== ENCOUNTER → 2023-10-22 | Outpatient (CLI) | payer MEDICAID, SELFPAY ==
[2023-10-22 07:28] LABS: Hematocrit 39.8 % (37-47); Hemoglobin 12.5 g/dL (12.0-15.0); Mean Corp Hgb Conc 31.4 g/dL (32-36); Mean Corpuscular Hgb 29.6 pg (27.0-32.0); Mean Corpuscular Volume 94.1 fL (81-99); Mean Platelet Vol. 10.6 fl (6.2-12.0); Platelet Count 343 K/mm3 (150-450); RBC Distribution Width CV 14.8 % (11.6-14.6); RBC Distribution Width SD 51.3 fl (35.1-43.9); Red Blood Count 4.23 M/mm3 (4.2-5.4); White Blood Count 7.4 K/mm3 (4.4-11.0)
[2023-10-22 08:34] LABS: ALB/GLOB Ratio 0.8 RATIO (0.9-2.4); AST(SGOT) 24 U/L (15-37); Alanine Aminotransfer ALT/SGPT 39 U/L (13-56); Alkaline Phosphatase 135 U/L (45-117); Anion Gap 5 (5-15); BUN 8 mg/dL (7-18); BUN/Creat Ratio 8.5 RATIO (10-20); Calcium,Total 9.1 mg/dL (8.5-10.1); Chloride 109 mmol/L (98-107); Creatinine, Serum 0.94 mg/dL (0.55-1.02); EST Glomerular Filtration Rate 69 mL/min (>60); Est Glom Filt Rate - Afr Amer 84 mL/min (>60); Globulin 3.6 g/dL (2.2-4.2); Glucose 98 mg/dL (74-106); Potassium 2.9 mmol/L (3.5-5.1); Protein, Total 6.6 g/dL (6.4-8.2); Sodium Level 140 mmol/L (136-145)
[2023-10-23 04:08] LABS: Transferrin 219 mg/dL (192-364)
== END | disposition home or self-care (01) ==
LOC: LAB 06:03
PROVIDERS: PCP Family Medicine; Referring Provider Psychiatry & Neurology Neurology; Visit Provider Psychiatry & Neurology Neurology
DX: M79.7 Fibromyalgia (principal); D75.1 Secondary polycythemia
CPT/HCPCS: 36415; 80053; 84466; 85027

== ENCOUNTER → 2023-10-29 | Outpatient (CLI) | payer MEDICAID, SELFPAY ==
[2023-10-29 14:44] LABS: Absolute Neutrophil Count 3.9 X10^3/uL (2.0-7.7); Basophil# 0.13 X10^3/uL; Basophil% 1.8 % (0-1); Eosinophil# 0.36 X10^3/uL; Hematocrit 43.2 % (37-47); Hemoglobin 13.4 g/dL (12.0-15.0); Lymphocyte % 30.6 % (19-41); Mean Corpuscular Hgb 29.5 pg (27.0-32.0); Mean Corpuscular Volume 94.9 fL (81-99); Mean Platelet Vol. 10.8 fl (6.2-12.0); Monocyte# 0.61 X10^3/uL; Monocyte% 8.5 % (0-10); NRBC Flagged by Analyzer 0 % (0-5); Neutrophil # 3.87 X10^3/uL (2.7-7.7); Neutrophil % 53.8 % (47-70); Platelet Count 360 K/mm3 (150-450); RBC Distribution Width CV 14.6 % (11.6-14.6); RBC Distribution Width SD 51.3 fl (35.1-43.9); Red Blood Count 4.55 M/mm3 (4.2-5.4); White Blood Count 7.2 K/mm3 (4.4-11.0)
[2023-10-29 15:52] LABS: Anion Gap 4 (5-15); BUN 11 mg/dL (7-18); BUN/Creat Ratio 10.5 RATIO (10-20); Calcium,Total 9.4 mg/dL (8.5-10.1); Chloride 112 mmol/L (98-107); Creatinine, Serum 1.05 mg/dL (0.55-1.02); EST Glomerular Filtration Rate 61 mL/min (>60); Est Glom Filt Rate - Afr Amer 74 mL/min (>60); Glucose 65 mg/dL (74-106); Potassium 4.2 mmol/L (3.5-5.1); Sodium Level 141 mmol/L (136-145)
== END | disposition home or self-care (01) ==
LOC: MFPLAB 11:52
PROVIDERS: PCP Family Medicine; Visit Provider Family Medicine
DX: E87.6 Hypokalemia (principal); T14.8XXA Other injury of unspecified body region, initial encounter
CPT/HCPCS: 36415; 80048; 85025

== ENCOUNTER → 2023-11-04 | Outpatient (CLI) | payer MEDICAID, SELFPAY ==
--- NOTE | 2023-11-04 12:27 | NEURO ---
NCS and/or EMG Patient Report Ordering Doctor: Kamaljit Chan DATE OF SERVICE: 11/04/23 Brielle presents with low back pain and intermittent numbness and tingling in the legs. She reports weakness in the right leg. Electrodiagnostic Findings: Left peroneal motor nerve demonstrates normal distal latency, amplitude and conduction velocity. Right peroneal motor nerve demonstrates normal distal latency and conduction velocity. There is a significant drop in peroneal motor amplitude (about 66%) in comparison to the left side. The left tibial motor nerve demonstrates normal distal latency, amplitude and conduction velocity. Prolonged right and left sural latency is noted. Normal right superficial peroneal and left superficial peroneal responses. H reflex is prolonged bilaterally. Prolonged left tibial F?wave. Needle EMG testing was performed in the lower limbs. All muscles tested showed no evidence of denervation with normal motor unit action potentials. Electrodiagnostic impression:This is an abnormal study. 1. 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 2. There is a drop in right peroneal motor conduction in comparison to the left side, thought still within normal limits. This could be concordant with reported right leg weakness. 3. There is no electrodiagnostic evidence for lumbar radiculopathy. Multi Select Codes Neurology Neurology Interp Codes: 27774-11 Musc test done w/n test comp (interp) (2) and 31256-91 Nrv cndj test 9-10 studies (interp)
== END | disposition home or self-care (01) ==
LOC: PSN 08:43
PROVIDERS: PCP Family Medicine; Referring Provider Psychiatry & Neurology Neurology; Visit Provider Psychiatry & Neurology Neurology
DX: M54.50 Low back pain, unspecified (principal); M54.10 Radiculopathy, site unspecified; M79.7 Fibromyalgia
CPT/HCPCS: 95886; 95911

== ENCOUNTER → 2023-11-12 | Outpatient (CLI) | payer MEDICAID, SELFPAY ==
--- NOTE | 2023-11-12 06:42 | MRI_ITS ---
EXAM: MR CERVICAL SPINE WITHOUT INTRAVENOUS CONTRAST CLINICAL INDICATION: Neck pain; right C8 radiculopathy on EMG/NCS -- Patient has a dorsal column stimulator implanted. TECHNIQUE: Multiplanar and multisequence MR images of the cervical spine without intravenous contrast were performed. Magnetic field strength 1.5 T. COMPARISON: No relevant prior studies available. FINDINGS: VERTEBRAE: Unremarkable. Normal vertebral bodies and posterior elements. Normal alignment. Normal craniocervical junction and cervicothoracic junction. No spondylolisthesis. There is preservation of the normal cervical lordosis. SPINAL CORD: Unremarkable in signal and morphology. SOFT TISSUES: Abnormal high signal in the right-sided posterior paraspinal muscles including the rotatores, multifidus cervicis, and semispinalis muscles at the C5-6 level. No prevertebral soft tissue swelling. LYMPH NODES: Unremarkable. There is no cervical adenopathy. DISCS/SPINAL CANAL/NEURAL FORAMINA: C2-C3: Unremarkable. Normal disc height and morphology. Normal spinal canal. Normal neuroforamina. C3-C4: Unremarkable. Normal disc height and morphology. Normal spinal canal. Normal neuroforamina. C4-C5: Unremarkable. Normal disc height and morphology. Normal spinal canal. Normal neuroforamina. C5-C6: Mild generalized disc bulge. No spinal canal or foraminal stenosis. C6-C7: Unremarkable. Normal disc height and morphology. Normal spinal canal. Normal neuroforamina. C7-T1: Unremarkable. Normal disc height and morphology. Normal spinal canal. Normal neuroforamina. MRI/Spine Cervical (Routine) IMPRESSION: 1. Abnormal high signal in the right-sided posterior paraspinal muscles including the rotatores, multifidus cervicis, and semispinalis muscles at the C5-6 level. Differential diagnosis includes muscular strain and myositis. No fluid collection identified. 2. C5-C6 mild spondylosis. No spinal canal or foraminal stenosis. Electronically Signed: Jose J Bishop MD at 5:11 EDT ,
--- NOTE | 2023-11-12 06:42 | MRI_ITS ---
EXAM: MR LUMBAR SPINE WITHOUT INTRAVENOUS CONTRAST CLINICAL INDICATION: Low back pain; bilateral lower extremity radicular -- Patient has a dorsal column stimulator implanted. TECHNIQUE: Multiplanar and multisequence MR images of the lumbar spine without intravenous contrast. Magnetic field strength 1.5 T. COMPARISON: No relevant prior studies available. FINDINGS: VERTEBRAE: Unremarkable. Vertebral body heights are preserved. Normal vertebral bodies and posterior elements. Normal alignment. No spondylolisthesis. There is preservation of the normal lumbar lordosis. SPINAL CORD: Unremarkable. Normal position and signal intensity of the conus medullaris. SOFT TISSUES: See below. TUBES, LINES AND DEVICES: Neurostimulator device in the subcutaneous tissues of the right back. DISCS/SPINAL CANAL/NEURAL FORAMINA: L1-L2: Unremarkable. Normal disc height and morphology. Normal spinal canal and lateral recesses. Normal neuroforamina. L2-L3: Unremarkable. Normal disc height and morphology. Normal spinal canal and lateral recesses. Normal neuroforamina. L3-L4: Unremarkable. Normal disc height and morphology. Normal spinal canal and lateral recesses. Normal neuroforamina. L4-L5: Unremarkable. Normal disc height and morphology. Normal spinal canal and lateral recesses. Normal neuroforamina. L5-S1: Unremarkable. Normal disc height and morphology. Normal spinal canal and lateral recesses. Normal neuroforamina. MRI/Spine Lumbar (Routine) IMPRESSION: No acute findings in the lumbar spine. Electronically Signed: Jose J Bishop MD at 5:01 EDT ,
== END | disposition home or self-care (01) ==
PROVIDERS: PCP Family Medicine; Referring Provider Psychiatry & Neurology Neurology; Visit Provider Psychiatry & Neurology Neurology
DX: M54.2 Cervicalgia (principal); M54.12 Radiculopathy, cervical region; M54.50 Low back pain, unspecified
CPT/HCPCS: 72141; 72148

== ENCOUNTER 2023-11-13 09:30 | Emergency (ER) | payer MEDICAID, SELFPAY ==
[2023-11-13 09:31] VITALS: BP 165/119; PULSE 88; RESP 15; TEMP 36.4; O2SAT 99; BMI 24.6
--- NOTE | 2023-11-13 11:04 | EDS_ITS ---
HPI History of Present Illness Chief Complaint: Weakness Informant: patient Onset/Context/Timing Onset: Today Context: Sudden Onset Timing: Continuous Quality: Throbbing Location: Top of her head Worsened by: Nothing Relieved by: Nothing Narrative Narrative: Patient presents with headache and dizziness that began today. Patient states that her headache began rather suddenly this morning. Patient describes her pain as throbbing. Patient states it feels like someone was hitting her in the head with a baseball bat. Patient states it is mainly over the top of her head. Patient states that she started also having some dizziness. Patient states that this dizziness has caused her legs to be weak. Patient states nothing makes her symptoms better and nothing makes it worse. Patient admits to some nausea but denies any vomiting. Patient states she had an MRI of her neck and back yesterday to evaluate for neuropathy versus radiculopathy. Patient states that the neurologist office who ordered the MRI does not have the results. Patient states she was told to come to the emergency department for the results. [facility] Medical History Restless legs Loss of hearing Wears glasses Incontinence Back pain History of pain when walking Gastroparalysis Bipolar disorder Ureteral calculus, right GERD (gastroesophageal reflux disease) Kidney stones Wears dentures Depression Walker as ambulation aid Arthritis DVT (deep venous thrombosis) Blackout Smoker Shortness of breath on exertion Fibromyalgia History of edema History of stress test Opioid use disorder Personality disorder, unspecified Major depressive disorder, recurrent, unspecified HLD (hyperlipidemia) IBS (irritable bowel syndrome) Migraine Insomnia Anxiety panic HTN (hypertension) Home Medications ?Medication ?Instructions ?Recorded ?Last Taken ?Type nortriptyline 50 mg capsule 100 mg PO QHS depression 10/13/17 11/12/23 History (Pamelor) topiramate 25 mg tablet 25 mg PO QHS Check with primary 11/24/18 11/12/23 History doctor propranolol 20 mg tablet 40 mg PO QHS HIGH BLOOD PRESSURE 05/03/20 11/12/23 History lamotrigine 200 mg tablet 200 mg PO DAILY MOOD 08/02/22 11/12/23 History lorazepam 1 mg tablet 1 mg PO BID PRN anxiety 08/02/22 11/12/23 History spironolactone 25 mg tablet 25 mg PO DAILY BLOOD PRESSURE 08/02/22 11/12/23 History tizanidine 4 mg tablet 4 mg PO TID PRN Muscle Pain 08/02/22 11/12/23 History oxycodone-acetaminophen 5 mg-325 1 tab PO Q8H PRN pain 3 days #10 04/16/23 11/12/23 Rx mg tablet (Percocet) tabs duloxetine 60 mg capsule,delayed 60 mg PO BID #60 caps 10/15/23 11/12/23 Rx release gabapentin 800 mg tablet 800 mg PO TID 10/15/23 11/12/23 History meloxicam 7.5 mg tablet 7.5 mg PO BID PRN pain #60 tabs 10/16/23 11/12/23 Rx folic acid 1 mg tablet 1 mg PO DAILY SUPPLEMENT #30 tabs 10/21/23 11/12/23 Rx ferrous sulfate 325 mg (65 mg 325 mg PO DAILY SUPPLEMENT #30 tabs 10/22/23 11/12/23 Rx iron) tablet alprazolam 1 mg tablet 1 mg PO .COMPLEX ANXIETY #1 TAB 11/11/23 Unknown Rx bupropion HCl 300 mg 24 hr tablet, 300 mg PO DAILY MOOD 11/13/23 11/12/23 History extended release cariprazine 1.5 mg capsule 1.5 mg PO QHS 11/13/23 Unknown History (Vrgordonlar) clonidine HCl 0.1 mg tablet 0.2 mg PO QHS BLOOD PRESSURE 11/13/23 11/12/23 History dicyclomine 10 mg capsule 10 mg PO 4X/DAY ABDOMINAL CRAMPS 11/13/23 11/12/23 History fluorometholone 0.1 % eye 1 drp ophthalmic (eye) BID 11/13/23 11/12/23 History drops,suspension hyoscyamine sulfate 0.125 mg 0.125 mg sublingual 4X/DAY PRN 11/13/23 11/12/23 History disintegrating tablet abdominal discomfort lactulose 10 gram/15 mL oral 15 ml PO DAILY CONSTIPATION 11/13/23 11/12/23 History solution lidocaine-prilocaine 2.5 %-2.5 % 1 applic topical DAILY PRN skin 11/13/23 11/12/23 History topical cream irritation melatonin 10 mg tablet 10 mg PO DAILY SLEEP 11/13/23 11/12/23 History peg 400-propylene glycol (PF) 0.4 1 drp EACH EYE BID PRN dry eye(s) 11/13/23 11/12/23 History %-0.3 % eye drops in a dropperette (Lubricant Eye (PG-PEG 400) (PF)) peg 400-propylene glycol 0.4 %-0.3 1 drp ophthalmic (eye) BID 11/13/23 11/12/23 History % eye drops (Systane (propylene glycol)) potassium chloride 20 mEq 20 meq PO DAILY SUPPLEMENT 11/13/23 11/12/23 History tablet,extended release promethazine 25 mg tablet 12.5 - 25 mg PO DAILY PRN nausea 11/13/23 Unknown History and vomiting Allergy/AdvReac Type Severity Reaction Status Date / Time aspirin AdvReac Mild Nausea Verified 11/13/23 09:39 Family History Father Hypertension Heart disease Brother CAD (coronary artery disease) Myocardial infarction Mother Heart disease Myocardial infarction Surgical History Hx of cystoscopy History of cholecystectomy History of repair of hiatal hernia History of esophagogastroduodenoscopy (EGD) S/P laparoscopic cholecystectomy Social History household members: children Smoking Status: Current every day smoker tobacco type: cigarettes alcohol intake: never substance use type: does not use ROS ROS ED Constitutional Constitutional ED: Denies chills or fever(s) Eyes Eyes: Denies blurry vision or change in vision ENT ENT ED: Denies rhinorrhea or sore throat Cardiovascular Cardiovascular: Denies chest pain or palpitations Respiratory/Chest Respiratory/Chest: Denies cough or dyspnea Gastrointestinal Gastrointestinal: Reports nausea; Denies vomiting Genitourinary Genitourinary ED: Denies dysuria or hematuria Musculoskeletal Musculoskeletal: Reports back pain and neck pain Integumentary Denies abscess or rash Neurologic Neurologic: Reports headache(s) and weakness Allergic/Immunologic Allergic/Immunologic ED: Denies mouth swelling or urticaria EXAM Physical Exam Const Vital Signs: 11/13/23 09:31 11/13/23 09:37 11/13/23 11:30 Temperature 97.6 F L Temperature Source Temporal Pulse Rate 88 86 Respiratory Rate 15 17 Respiratory Effort Normal Non-Labored Respiratory Pattern Normal Blood Pressure 165/119 H 108/85 H Blood Pressure Mean 134 92 Pulse Ox 99 99 Oxygen Delivery Method Room Air Room Air Positive well nourished and well developed General Appearance ED: well developed and NAD HEENT Reports moist mucous membranes Neck supple and no JVD Resp normal respiratory effort and clear to auscultation bilaterally Cardio regular rate and regular rhythm GI non-tender and non-distended Palpation: soft Neuro oriented x3, CN's II-XII intact bilaterally and no sensory deficits noted Neuro Narrative: Strength is 4/5 in the left lower extremity and 3/5 in the right lower extremity. There is questionable effort and strength testing. Sensation was intact to light touch bilaterally in the lower extremities. Strength is 5/5 bilaterally in the upper extremities. Sensorium / Orientation: alert MDM MDM MDM Narrative Medical decision making narrative: Patient was advised of her MRI findings from yesterday. Differential diagnosis includes intracranial bleeding, migraine headache, tension headache, electrolyte abnormality, urinary tract infection, and anxiety. CT scan of the brain will be obtained to assess for intracranial bleeding. CBC will be obtained to assess for leukocytosis and anemia. Basic metabolic profile will be obtained to assess for electrolyte abnormality and renal function. Urinalysis will be obtained to assess for urinary tract infection and hematuria. Lab Data Attestation: I reviewed the patient's lab results. Lab results narrative: CBC was reviewed and was within normal limits. Basic metabolic profile was reviewed and was within normal limits. Labs: Laboratory Results - last 24 hr 11/13/23 11:25 WBC 8.1 RBC 4.74 Hgb 13.7 Hct 44.4 MCV 93.7 MCH 28.9 MCHC 30.9 L RDW Std Deviation 49.1 H RDW Coeff of Raquel 14.2 Plt Count 377 MPV 10.1 Immature Gran % (Auto) 0.500 Neut % (Auto) 62.1 Lymph % (Auto) 26.1 Jasper % (Auto) 6.4 Eos % (Auto) 3.5 Baso % (Auto) 1.4 H Absolute Neuts (auto) 5.0 Absolute Lymphs (auto) 2.11 Nucleated RBC % 0 Sodium 142 Potassium 4.3 Chloride 107 Carbon Dioxide 29.0 Anion Gap 6 BUN 6 L Creatinine 1.00 Estim Creat Clear Calc 79.25 Est GFR (MDRD) Af Amer 78 Est GFR (MDRD) Non-Af 65 BUN/Creatinine Ratio 6.0 L Glucose 100 Calcium 9.8 Radiography Diagnostic Testing: Clinical Impression(s) from Imaging Studies Brain CT 11/13/23 11:12 IMPRESSION: Normal unenhanced CT scan of the brain. Electronically Signed: Brandon Bowles MD at 12:21 EDT , CT scan of the brain was obtained. There is no acute intracranial abnormality. This was interpreted by the radiologist and was also independently reviewed by myself. Treatment and Re-Evaluation :: Patient was given IV fluids, Reglan, and Benadryl. Patient had minimal relief with this. Patient was ordered Imitrex. Patient was advised that narcotic me dications are not indicated for headaches. Patient then told the nurse that she was also having pain all all over. Patient did request morphine or Dilaudid. Patient was advised that this was not indicated. Patient became upset and left the emergency department. Patient was able to ambulate out of the emergency department without difficulty. Patient left without completing treatment. Discharge Plan Triage Chief Complaint: Weakness ED Provider: Sigifredo Ocasio Dx/Rx/DC Orders Clinical Impression: Headache, Fibromyalgia, HTN (hypertension) Instructions: ED Weakness (Uncertain Cause) Prescriptions: No Action gabapentin 800 mg tablet 800 mg PO TID duloxetine 60 mg capsule,delayed release(DR/EC) 60 mg PO BID Qty: 60 6RF meloxicam 7.5 mg tablet 7.5 mg PO BID PRN (Reason: pain) Qty: 60 5RF nortriptyline [Pamelor] 50 MG capsule 100 mg PO QHS topiramate 25 tablet 25 mg PO QHS propranolol 20 MG tablet 40 mg PO QHS lamotrigine 200 mg tablet 200 mg PO DAILY tizanidine 4 mg tablet 4 mg PO TID PRN (Reason: Muscle Pain) spironolactone 25 mg tablet 25 mg PO DAILY lorazepam 1 mg tablet 1 mg PO BID PRN (Reason: anxiety) oxycodone-acetaminophen [Percocet] 5-325 mg tablet 1 tab PO Q8H PRN (Reason: pain) 3 Days Qty: 10 0RF bupropion HCl 300 mg tablet extended release 24 hr 300 mg PO DAILY potassium chloride 20 mEq tablet extended release 20 meq PO DAILY clonidine HCl 0.1 mg tablet 0.2 mg PO QHS dicyclomine 10 mg capsule 10 mg PO 4X/DAY melatonin 10 mg tablet 10 mg PO DAILY hyoscyamine sulfate 0.125 mg tablet,disintegrating 0.125 mg sublingual 4X/DAY PRN (Reason: abdominal discomfort) lidocaine-prilocaine 2.5-2.5 % cream 1 applic topical DAILY PRN (Reason: skin irritation) promethazine 25 mg tablet 12.5 - 25 mg PO DAILY PRN (Reason: nausea and vomiting) fluorometholone 0.1 % drops,suspension 1 drp ophthalmic (eye) BID Lubricant Eye (PG-PEG 400)(PF) 0.4-0.3 % dropperette 1 drp EACH EYE BID PRN (Reason: dry eye(s)) Systane (propylene glycol) 0.4-0.3 % drops 1 drp ophthalmic (eye) BID lactulose 10 gram/15 mL solution 15 ml PO DAILY Vraylar 1.5 mg capsule 1.5 mg PO QHS folic acid 1 mg tablet 1 mg PO DAILY Qty: 30 4RF ferrous sulfate 325 mg (65 mg iron) tablet 325 mg PO DAILY Qty: 30 6RF alprazolam 1 mg tablet 1 mg PO .COMPLEX Qty: 1 0RF Rx Instructions: 1 mg orally 30 minutes prior to MRI Primary Care Provider: Tom Giraldo Referrals: Tom Giraldo MD [Primary Care Provider] - 5-7 Days Print Language: Greenlandic Disposition Disposition: Home, Self Care
--- NOTE | 2023-11-13 11:12 | CT_ITS ---
STUDY: CT BRAIN WITHOUT CONTRAST REASON FOR EXAM: Female, 43 years old. Pain RADIATION DOSAGE (If Supplied By Facility): CTDIvol = ( 44.99 ) mGy, DLP = ( 745.49 ) mGycm TECHNIQUE: Transaxial CT imaging of the brain was performed without administration of intravenous contrast material. Individualized dose optimization techniques were used for this CT. COMPARISON: November 25, 2018. FINDINGS: Normal soft tissue structures. Normal calvarium. Normal size ventricles and extra-axial spaces for the patient''s age. Normal white matter tracts of the cerebral hemispheres. Normal basal ganglia and thalami. Normal brainstem. Normal cerebellum. There is no intracranial hemorrhage. There are no findings of an acute ischemic infarction. Normal visualized paranasal sinuses. CT/Brain/Head without Contrast IMPRESSION: Normal unenhanced CT scan of the brain. Electronically Signed: Brandon Bowles MD at 12:21 EDT ,
[2023-11-13] MEDS: 0.9% Normal Saline (1000mL) 1,000 ML 999 ML IV (11:28)
[2023-11-13] MEDS: DiphenhydrAMINE 50 MG/ML Syringe 25 MG IV (11:29)
[2023-11-13] MEDS: Metoclopramide 10 MG/2 ML Vial IV (11:29)
[2023-11-13 11:30] VITALS: BP 108/85; PULSE 86; RESP 17; O2SAT 99
[2023-11-13 11:49] LABS: Absolute Lymphocyte Count 2.11 X10^3/uL (0.83-4.51); Basophil# 0.11 X10^3/uL; Basophil% 1.4 % (0-1); Eosinophil# 0.28 X10^3/uL; Eosinophils% 3.5 % (0-5); Hematocrit 44.4 % (37-47); Hemoglobin 13.7 g/dL (12.0-15.0); Lymphocyte # 2.11 X10^3/ul (0.83-4.51); Lymphocyte % 26.1 % (19-41); Mean Corp Hgb Conc 30.9 g/dL (32-36); Mean Corpuscular Hgb 28.9 pg (27.0-32.0); Mean Corpuscular Volume 93.7 fL (81-99); Mean Platelet Vol. 10.1 fl (6.2-12.0); Monocyte# 0.52 X10^3/uL; Monocyte% 6.4 % (0-10); NRBC Flagged by Analyzer 0 % (0-5); Neutrophil # 5.02 X10^3/uL (2.7-7.7); Neutrophil % 62.1 % (47-70); Platelet Count 377 K/mm3 (150-450); RBC Distribution Width CV 14.2 % (11.6-14.6); RBC Distribution Width SD 49.1 fl (35.1-43.9); Red Blood Count 4.74 M/mm3 (4.2-5.4); White Blood Count 8.1 K/mm3 (4.4-11.0)
[2023-11-13 11:58] LABS: Anion Gap 6 (5-15); BUN 6 mg/dL (7-18); Calcium,Total 9.8 mg/dL (8.5-10.1); Chloride 107 mmol/L (98-107); EST Glomerular Filtration Rate 65 mL/min (>60); Est Glom Filt Rate - Afr Amer 78 mL/min (>60); Estimated Creatinine Clearance 79.25 ml/min; Glucose 100 mg/dL (74-106); Potassium 4.3 mmol/L (3.5-5.1); Sodium Level 142 mmol/L (136-145)
--- NOTE | 2023-11-13 12:02 | ED.RN ---
Pt requested pain med and anxiety med and was inconsolable in tears, upset she's only getting Benadryl and Reglan. Pt doesn't understand why she's not getting real pain meds. This RN educated pt that her complaint was a headache and that this is part of our headache cocktail. Pt states she's in pain everywhere. This RN messaged MD that she would like pain medication and anxiety medication. While awaiting orders pt called out 2 more times requesting pain medication. This RN educated pt that her request was made to the MD and that this RN was awaiting orders but that even though a request was made the MD may not necessarily order anything. Pt stops crying and says well if I'm not getting pain meds when am I getting out of here? This RN informed pt that after her results were back and the MD reviews her case there will be a decision to d/c. Pt also informed that if she does not want to stay because her only goal is pain medication then she does not have to stay and asked that pt let this RN know if she would like to leave and this RN will remove IV.
--- NOTE | 2023-11-13 12:51 | ED.RN ---
Pt offered imitrex as ordered and refused. States she used to take at home and it's not effective. Pt says she needs morphine or Dilaudid and her dad is picking her up. notified of pt request.
--- NOTE | 2023-11-13 13:00 | ED.RN ---
PT WAS INFORMED SHE WAS NOT GOING TO GET MORPHINE OR DILAUDID. PT STATED SHE COULD NOT WALK AND SHE GETS HIP INJECTIONS. EXPLAINED THE ER IS NOT WHERE YOU GO FOR TREATMENT OF CHRONIC PAIN. PT ASKED WHEN THE DR WOULD BE IN FOR HER TEST RESULTS. EXPLAINED HE WAS BUSY. PT ASKED THIS NURSE ABOUT HER HEMOGLOBIN AND POTASSIUM. THOSE RESULTS GIVEN TO HER. PT THEN TOOK ALL HER MONITORS STUFF OFF, HAD THIS NURSE REMOVE HER IV, AND PT THEN DRESSED HERSELF AND WALKED WITH STEADY GIT FROM ER WHILE TALKING TO THIS NURSE ABOUT HER FATHER. PT WAS CALM AND HAD NO DISTRESS NOTED. PT THANKED THIS NURSE AND APOLOGIZED FOR HOW SHE WAS ACTING. THEN AMBULATED OUT TO WAIT FOR RIDE
== END 2023-11-13 13:08 | disposition left against medical advice (07) ==
PROVIDERS: Emergency Provider Emergency Medicine; PCP Family Medicine; Visit Provider Emergency Medicine
DX: R51.9 Headache, unspecified (principal); R53.1 Weakness; I10 Essential (primary) hypertension; M79.7 Fibromyalgia; E78.5 Hyperlipidemia, unspecified; R11.0 Nausea; R42 Dizziness and giddiness; K21.9 Gastro-esophageal reflux disease without esophagitis; Z79.899 Other long term (current) drug therapy; F17.210 Nicotine dependence, cigarettes, uncomplicated; Z53.20 Procedure and treatment not carried out because of patient's decision for unspecified reasons
CPT/HCPCS: J3030; 70450; 80048; 85025; 96361; 96374; 96375; 99283; J7030; A4216

== ENCOUNTER → 2023-11-24 | Outpatient (CLI) | payer MEDICAID, SELFPAY ==
[2023-11-24 15:59] LABS: Absolute Lymphocyte Count 2.11 X10^3/uL (0.83-4.51); Absolute Neutrophil Count 2.8 X10^3/uL (2.0-7.7); Basophil% 1.8 % (0-1); Eosinophil# 0.21 X10^3/uL; Eosinophils% 3.7 % (0-5); Hematocrit 41.8 % (37-47); Hemoglobin 12.8 g/dL (12.0-15.0); Lymphocyte # 2.11 X10^3/ul (0.83-4.51); Lymphocyte % 37.5 % (19-41); Mean Corp Hgb Conc 30.6 g/dL (32-36); Mean Corpuscular Hgb 29.4 pg (27.0-32.0); Mean Corpuscular Volume 96.1 fL (81-99); Mean Platelet Vol. 10.8 fl (6.2-12.0); Monocyte# 0.36 X10^3/uL; Monocyte% 6.4 % (0-10); NRBC Flagged by Analyzer 0 % (0-5); Neutrophil # 2.82 X10^3/uL (2.7-7.7); Neutrophil % 50.1 % (47-70); Platelet Count 326 K/mm3 (150-450); Potassium 3.6 mmol/L (3.5-5.1); RBC Distribution Width CV 14.2 % (11.6-14.6); RBC Distribution Width SD 49.8 fl (35.1-43.9); Red Blood Count 4.35 M/mm3 (4.2-5.4); White Blood Count 5.6 K/mm3 (4.4-11.0)
[2023-11-24 16:19] LABS: Erythrocyte Sedimentation Rate 7 mm/hr (0-30)
== END | disposition home or self-care (01) ==
LOC: MTLAB 13:22
PROVIDERS: PCP Family Medicine; Referring Provider Psychiatry & Neurology Neurology; Visit Provider Psychiatry & Neurology Neurology
DX: G43.009 Migraine without aura, not intractable, without status migrainosus (principal); E87.6 Hypokalemia
CPT/HCPCS: 36415; 84132; 85025; 85652

== ENCOUNTER → 2023-11-30 | Outpatient (CLI) | payer MEDICAID, SELFPAY ==
--- NOTE | 2023-11-30 13:42 | RAD_ITS ---
STUDY: X-RAY - ABDOMEN/PELVIS REASON FOR EXAM: Female, 43 years old. STONES TECHNIQUE: Single AP view of the abdomen / pelvis. COMPARISON: None. FINDINGS: Dorsal column spinal stimulator in the right flank terminates in the thoracic spine. There is an unremarkable bowel gas pattern. The visualized liver, spleen and kidneys are grossly normal in size and morphology. Normal soft tissue structures. Normal visualized osseous structures. RAD/Abdomen Single View IMPRESSION: No obvious renal or ureteral stone. Electronically Signed: Clint Mo MD at 14:03 EDT ,
== END | disposition home or self-care (01) ==
LOC: MTRAD 13:40
PROVIDERS: PCP Family Medicine; Referring Provider Urology; Visit Provider Urology
DX: N20.0 Calculus of kidney (principal)
CPT/HCPCS: 74018

== ENCOUNTER 2023-12-02 15:59 | Emergency (ER) | payer MEDICAID, SELFPAY ==
[2023-12-02 16:02] VITALS: BP 102/71; PULSE 76; RESP 18; TEMP 37.1; O2SAT 99
--- NOTE | 2023-12-02 17:43 | ED.RN ---
Pt came to triage desk upset about the amount of time she's been waiting. Pt states she's seen at least 7 people who came in after her go back and that they were walking just fine. This RN told pt that the order of being seen is not based on time of arrival but based on level of severity of complaint, symptoms, vitals, etc. Pt demands to know how long she is going to have to wait. This RN told pt that it is not possible to quote wait times because of the variables that could increase her wait time like squads or high acuity pt's coming in. Pt says well I'm not going to wait around all day.
--- NOTE | 2023-12-02 18:10 | ED.RN ---
PT WANTS TO KNOW HOW LONG ITS GOING TO BE BEFORE SHE IS SEEN. EXPLAINED WE ARE UNABLE TO GIVE A TIME LINE. SHE STATES WE SHOULD KNOW IF THERE ARE DISCHARGES. THIS NURSE REMINDED HER THAT SHE SHOULD REMEMBER HOW THE ER WORKS AND SQUADS COME IN AND PTS WITH A HIGHER ACUITY WILL GO BACK FIRST. PT THEN STATED OK AND AMBULATED OUTSIDE WITH STEADY GAIT PUSHING HER ROLLATOR IN FRONT OF HER. ONCE PT WAS BROUGHT BACK TO A ROOM SHE APOLOGIZED TO THIS NURSE AND STATED SHE WAS GETTING ANTSY. PT WAS ALSO WALKING SLOWLY AND LEANING OVER ONTO HER ROLLATOR WHICH SHE WAS NOT DOING EARLIER
[2023-12-02 19:09] LABS: Absolute Lymphocyte Count 2.44 X10^3/uL (0.83-4.51); Absolute Neutrophil Count 2.8 X10^3/uL (2.0-7.7); Basophil# 0.11 X10^3/uL; Basophil% 1.8 % (0-1); Eosinophil# 0.18 X10^3/uL; Eosinophils% 2.9 % (0-5); Hematocrit 39.2 % (37-47); Hemoglobin 12.1 g/dL (12.0-15.0); Lymphocyte # 2.44 X10^3/ul (0.83-4.51); Lymphocyte % 39.4 % (19-41); Mean Corp Hgb Conc 30.9 g/dL (32-36); Mean Platelet Vol. 9.9 fl (6.2-12.0); Monocyte% 9.7 % (0-10); NRBC Flagged by Analyzer 0 % (0-5); Neutrophil # 2.84 X10^3/uL (2.7-7.7); Neutrophil % 45.9 % (47-70); Platelet Count 289 K/mm3 (150-450); RBC Distribution Width CV 14.4 % (11.6-14.6); RBC Distribution Width SD 50.4 fl (35.1-43.9); Red Blood Count 4.17 M/mm3 (4.2-5.4); White Blood Count 6.2 K/mm3 (4.4-11.0)
[2023-12-02 19:17] VITALS: BP 133/80; PULSE 69; RESP 18; O2SAT 99
[2023-12-02] MEDS: Ketorolac 15 MG/ML Vial IV (19:18)
[2023-12-02] MEDS: Metoclopramide 10 MG/2 ML Vial IV (19:19)
[2023-12-02] MEDS: DiphenhydrAMINE 50 MG/ML Syringe 25 MG IV (19:19)
[2023-12-02 19:24] LABS: Anion Gap 5 (5-15); BUN 13 mg/dL (7-18); BUN/Creat Ratio 12.1 RATIO (10-20); Calcium,Total 8.9 mg/dL (8.5-10.1); Chloride 113 mmol/L (98-107); Creatinine, Serum 1.07 mg/dL (0.55-1.02); EST Glomerular Filtration Rate 60 mL/min (>60); Est Glom Filt Rate - Afr Amer 72 mL/min (>60); Glucose 99 mg/dL (74-106); Potassium 3.6 mmol/L (3.5-5.1); Sodium Level 143 mmol/L (136-145)
[2023-12-02] MEDS: fentaNYL 100 MCG/2 ML Ampul 25 MCG IV (20:20)
[2023-12-02 20:22] VITALS: BP 122/75; PULSE 75; RESP 18; TEMP 37.1; O2SAT 99
--- NOTE | 2023-12-02 20:31 | ED.VIS.LOWEX ---
HPI History of Present Illness Chief Complaint: Lower Extremity Injury Narrative Narrative: 43-year-old female presenting with acute on chronic left hip pain. She states it is just flared up. She tried to call her primary doctor who referred her to the emergency room. Patient is in pain management. She states she tried muscle relaxers, Percocet nothing is helping. Denies any trauma. Reports that she just had MRI of this area recently. She also state that she has had some problems with her electrolytes and wants to get some blood test done. Patient also reports to me that she has headache and she has a history of migraines. She admits to light sensitivity and sound sensitivity. [facility] Medical History Restless legs Loss of hearing Wears glasses Incontinence Back pain History of pain when walking Gastroparalysis Bipolar disorder Ureteral calculus, right GERD (gastroesophageal reflux disease) Kidney stones Wears dentures Depression Walker as ambulation aid Arthritis DVT (deep venous thrombosis) Blackout Smoker Shortness of breath on exertion Fibromyalgia History of edema History of stress test Opioid use disorder Personality disorder, unspecified Major depressive disorder, recurrent, unspecified HLD (hyperlipidemia) IBS (irritable bowel syndrome) Migraine Insomnia Anxiety panic HTN (hypertension) Home Medications ?Medication ?Instructions ?Recorded ?Last Taken ?Type nortriptyline 50 mg capsule 100 mg PO QHS depression 10/13/17 11/12/23 History (Pamelor) propranolol 20 mg tablet 40 mg PO QHS HIGH BLOOD PRESSURE 05/03/20 11/12/23 History lamotrigine 200 mg tablet 200 mg PO DAILY MOOD 08/02/22 11/12/23 History lorazepam 1 mg tablet 1 mg PO BID PRN anxiety 08/02/22 11/12/23 History spironolactone 25 mg tablet 25 mg PO DAILY BLOOD PRESSURE 08/02/22 11/12/23 History tizanidine 4 mg tablet 4 mg PO TID PRN Muscle Pain 08/02/22 11/12/23 History oxycodone-acetaminophen 5 mg-325 1 tab PO Q8H PRN pain 3 days #10 04/16/23 11/12/23 Rx mg tablet (Percocet) tabs duloxetine 60 mg capsule,delayed 60 mg PO BID #60 caps 10/15/23 11/12/23 Rx release gabapentin 800 mg tablet 800 mg PO TID 10/15/23 11/12/23 History folic acid 1 mg tablet 1 mg PO DAILY SUPPLEMENT #30 tabs 10/21/23 11/12/23 Rx ferrous sulfate 325 mg (65 mg 325 mg PO DAILY SUPPLEMENT #30 tabs 10/22/23 11/12/23 Rx iron) tablet alprazolam 1 mg tablet 1 mg PO .COMPLEX ANXIETY #1 TAB 11/11/23 Unknown Rx bupropion HCl 300 mg 24 hr tablet, 300 mg PO DAILY MOOD 11/13/23 11/12/23 History extended release cariprazine 1.5 mg capsule 1.5 mg PO QHS 11/13/23 Unknown History (Vraylar) clonidine HCl 0.1 mg tablet 0.2 mg PO QHS BLOOD PRESSURE 11/13/23 11/12/23 History dicyclomine 10 mg capsule 10 mg PO 4X/DAY ABDOMINAL CRAMPS 11/13/23 11/12/23 History fluorometholone 0.1 % eye 1 drp ophthalmic (eye) BID 11/13/23 11/12/23 History drops,suspension hyoscyamine sulfate 0.125 mg 0.125 mg sublingual 4X/DAY PRN 11/13/23 11/12/23 History disintegrating tablet abdominal discomfort lactulose 10 gram/15 mL oral 15 ml PO DAILY CONSTIPATION 11/13/23 11/12/23 History solution lidocaine-prilocaine 2.5 %-2.5 % 1 applic topical DAILY PRN skin 11/13/23 11/12/23 History topical cream irritation melatonin 10 mg tablet 10 mg PO DAILY SLEEP 11/13/23 11/12/23 History peg 400-propylene glycol (PF) 0.4 1 drp EACH EYE BID PRN dry eye(s) 11/13/23 11/12/23 History %-0.3 % eye drops in a dropperette (Lubricant Eye (PG-PEG 400) (PF)) peg 400-propylene glycol 0.4 %-0.3 1 drp ophthalmic (eye) BID 11/13/23 11/12/23 History % eye drops (Systane (propylene glycol)) potassium chloride 20 mEq 20 meq PO DAILY SUPPLEMENT 11/13/23 11/12/23 History tablet,extended release promethazine 25 mg tablet 12.5 - 25 mg PO DAILY PRN nausea 11/13/23 Unknown History and vomiting flurbiprofen 100 mg tablet 100 mg PO TID PRN pain #90 tabs 11/24/23 Unknown Rx sumatriptan succinate 50 mg tablet 50 mg PO .COMPLEX #9 tabs 11/24/23 Unknown Rx topiramate 25 mg tablet 25 mg PO BID Check with primary 11/24/23 Unknown Rx doctor #60 tabs Allergy/AdvReac Type Severity Reaction Status Date / Time aspirin AdvReac Mild Nausea Verified 12/02/23 16:02 Family History Father Hypertension Heart disease Brother CAD (coronary artery disease) Myocardial infarction Mother Heart disease Myocardial infarction Surgical History Hx of cystoscopy History of cholecystectomy History of repair of hiatal hernia History of esophagogastroduodenoscopy (EGD) S/P laparoscopic cholecystectomy Social History household members: children Smoking Status: Current every day smoker tobacco type: cigarettes alcohol intake: never substance use type: does not use ROS ROS ED Constitutional Constitutional ED: Denies chills, fever(s) or sweats Eyes Eyes: Denies blurry vision or change in vision ENT ENT ED: Denies ear pain or sore throat Cardiovascular Cardiovascular: Denies chest pain, palpitations or racing heartbeat Respiratory/Chest Respiratory/Chest: Denies cough, dyspnea or sputum Gastrointestinal Gastrointestinal: Denies abdominal pain, constipation, diarrhea, nausea or vomiting Genitourinary Genitourinary ED: Denies dysuria, hematuria or urinary frequency Musculoskeletal Musculoskeletal: Reports other Details: Left hip pain ; Denies arthralgias, myalgias or neck pain Integumentary Denies abscess, Abrasions or rash Neurologic Neurologic: Denies headache(s), paresthesias or weakness Psychiatric Psychiatric: Denies anxiety, depression, suicidal ideation or suicidal thoughts Endocrine Endocrinology: Denies polydipsia or polyuria EXAM Physical Exam Const Vital Signs: 12/02/23 16:02 12/02/23 19:17 12/02/23 20:22 Temperature 98.7 F 98.7 F Temperature Source Temporal Pulse Rate 76 69 75 Respiratory Rate 18 18 18 Blood Pressure 102/71 133/80 H 122/75 H Blood Pressure Mean 81 97 90 Pulse Ox 99 99 99 Oxygen Delivery Method Room Air Room Air Positive well nourished HEENT Reports moist mucous membranes normocephalic Resp normal respiratory effort Cardio regular rate and regular rhythm Extremity Extremity Narrative: Tenderness palpation over the left hip and greater trochanter region. No obvious deformity. Patient able to range her hip without much difficulty. Patient able to ambulate with her rollator. Neuro oriented x3 and CN's II-XII intact bilaterally Sensorium / Orientation: alert Motor Exam: strength 5/5 throughout Psych mental status grossly normal MDM MDM MDM Narrative Medical decision making narrative: Patient presenting with headache, chronic left hip pain. Initially gave her a migraine cocktail and her headache went away but she still complained of left hip pain. Her CBC showed a normal white blood cell count, hemoglobin and platelets. BMP showed normal electrolytes and a creatinine was 1.07 which is around baseline for her. She request something stronger for pain she was given 1 dose of fentanyl. At this point she states she wants to go home and go to bed. Discharged in stable condition. Impression: 1. Headache 2. Acute on chronic left hip pain Lab Data Attestation: I reviewed the patient's lab results. Labs: Laboratory Results - last 24 hr 12/02/23 18:39 WBC 6.2 RBC 4.17 L Hgb 12.1 Hct 39.2 MCV 94.0 MCH 29.0 MCHC 30.9 L RDW Std Deviation 50.4 H RDW Coeff of Raquel 14.4 Plt Count 289 MPV 9.9 Immature Gran % (Auto) 0.300 Neut % (Auto) 45.9 L Lymph % (Auto) 39.4 [place] % (Auto) 9.7 Eos % (Auto) 2.9 Baso % (Auto) 1.8 H Absolute Neuts (auto) 2.8 Absolute Lymphs (auto) 2.44 Nucleated RBC % 0 Sodium 143 Potassium 3.6 Chloride 113 H Carbon Dioxide 25.0 Anion Gap 5 BUN 13 Creatinine 1.07 H Est GFR (MDRD) Af Amer 72 Est GFR (MDRD) Non-Af 60 BUN/Creatinine Ratio 12.1 Glucose 99 Calcium 8.9 Discharge Plan Triage Chief Complaint: Lower Extremity Injury Other Complaint: Headache ED Provider: Nadir Yap Dx/Rx/DC Orders Instructions: ED Chronic Pain Prescriptions: No Action gabapentin 800 mg tablet 800 mg PO TID duloxetine 60 mg capsule,delayed release(DR/EC) 60 mg PO BID Qty: 60 6RF flurbiprofen 100 mg tablet 100 mg PO TID PRN (Reason: pain) Qty: 90 4RF topiramate 25 mg tablet 25 mg PO BID Qty: 60 4RF sumatriptan succinate 50 mg tablet 50 mg PO .COMPLEX Qty: 9 5RF Rx Instructions: Take 1 tablet orally every two hours as needed for headache up to two tablets per day nortriptyline [Pamelor] 50 MG capsule 100 mg PO QHS propranolol 20 MG tablet 40 mg PO QHS lamotrigine 200 mg tablet 200 mg PO DAILY tizanidine 4 mg tablet 4 mg PO TID PRN (Reason: Muscle Pain) spironolactone 25 mg tablet 25 mg PO DAILY lorazepam 1 mg tablet 1 mg PO BID PRN (Reason: anxiety) oxycodone-acetaminophen [Percocet] 5-325 mg tablet 1 tab PO Q8H PRN (Reason: pain) 3 Days Qty: 10 0RF bupropion HCl 300 mg tablet extended release 24 hr 300 mg PO DAILY potassium chloride 20 mEq tablet extended release 20 meq PO DAILY clonidine HCl 0.1 mg tablet 0.2 mg PO QHS dicyclomine 10 mg capsule 10 mg PO 4X/DAY melatonin 10 mg tablet 10 mg PO DAILY hyoscyamine sulfate 0.125 mg tablet,disintegrating 0.125 mg sublingual 4X/DAY PRN (Reason: abdominal discomfort) lidocaine-prilocaine 2.5-2.5 % cream 1 applic topical DAILY PRN (Reason: skin irritation) promethazine 25 mg tablet 12.5 - 25 mg PO DAILY PRN (Reason: nausea and vomiting) fluorometholone 0.1 % drops,suspension 1 drp ophthalmic (eye) BID Lubricant Eye (PG-PEG 400)(PF) 0.4-0.3 % dropperette 1 drp EACH EYE BID PRN (Reason: dry eye(s)) Systane (propylene glycol) 0.4-0.3 % drops 1 drp ophthalmic (eye) BID lactulose 10 gram/15 mL solution 15 ml PO DAILY Vraylar 1.5 mg capsule 1.5 mg PO QHS folic acid 1 mg tablet 1 mg PO DAILY Qty: 30 4RF ferrous sulfate 325 mg (65 mg iron) tablet 325 mg PO DAILY Qty: 30 6RF alprazolam 1 mg tablet 1 mg PO .COMPLEX Qty: 1 0RF Rx Instructions: 1 mg orally 30 minutes prior to MRI Primary Care Provider: Tom Giraldo Referrals: Tom Giraldo MD [Primary Care Provider] - Print Language: Sinhala
== END 2023-12-02 20:40 | disposition home or self-care (01) ==
LOC: ED 19:02
PROVIDERS: Emergency Provider Student in an Organized Health Care Education/Training Program; PCP Family Medicine; Visit Provider Student in an Organized Health Care Education/Training Program
DX: M25.552 Pain in left hip (principal); G89.29 Other chronic pain; I10 Essential (primary) hypertension; R51.9 Headache, unspecified; E78.5 Hyperlipidemia, unspecified; K21.9 Gastro-esophageal reflux disease without esophagitis
CPT/HCPCS: 80048; 85025; 96374; 96375; 99284; A4216

== ENCOUNTER → 2024-01-08 | Outpatient (CLI) | payer MEDICAID, SELFPAY ==
--- NOTE | 2024-01-08 12:37 | VDLE_ITS ---
Reason For Study: BLE Leg Pain RIGHT LEFT GSV is normal. GSV is normal. CFV is compressible, spontaneous, phasic, CFV is compressible, spontaneous, phasic, competent and demonstrates normal competent, and demonstrates normal augmentation. augmentation. FV is compressible, spontaneous, phasic, FV is compressible, spontaneous, phasic, competent and demonstrates normal competent and demonstrates normal augmentation. augmentation. POP V is compressible, spontaneous, phasic, POP V is compressible, spontaneous, phasic, competent and demonstrates normal competent and demonstrates normal augmentation. augmentation. T/P Trunk is compressible. T/P Trunk is compressible. PTV is compressible. PTV is compressible. RT PerV is compressible. LT PerV is compressible. Procedure This is a venous duplex using B-mode, color flow and spectral Doppler. Exam performed in department. The exam was diagnostic. VL/Venous Duplex US - Jeancarlos Extrem Interpretation Summary Deep veins of the bilateral lower extremities are patent and compressible segme ntally. There is no evidence of bilateral lower extremity deep vein thrombosis. The bilateral great saphenous veins appear patent and compressible segmentally. Ordering Physician: Nithin Miramontes Referring Physician: Tom Giraldo Performed By: Lexa Singh, RVT
--- NOTE | 2024-01-08 12:37 | ART_ITS ---
Reason For Study: PVD Procedure A bilateral lower extremity continuous wave Doppler with analog waveform analysis,segmental pressures,and ankle brachial indexes without exercise. Left Segmental Pressures Left brachial= 103mmHg. Left posterior tibial artery = 133mmHg. Left dorsalis pedis artery = 123mmHg. Left digit = 95 mmHg. Right Segmental Pressures Right brachial= 112mmHg. Right posterior tibial artery = 143mmHg. Right dorsalis pedis artery = 130mmHg. Right digit = 86 mmHg. Indices The right ankle brachial index by the posterior tibial artery is 1.28. The right ankle brachial index by the dorsalis pedis is 1.16. The right digital-brachial index is 0.77. The left ankle brachial index by the posterior tibial artery is 1.19. The left ankle brachial index by the dorsalis pedis is 1.10. The left digital-brachial index is 0.85. VL/Lower Ext Art Exam w/o Exercis Interpretation Summary Right GWENDOLYN 1.28, normal. TBI and Doppler/PVR waveforms of the right leg normal a t rest. Left GWENDOLYN 1.19, normal. TBI and Doppler/PVR waveforms of the left leg normal at rest. Ordering Physician: Nithin Miramontes Referring Physician: Tom Giraldo Performed By: Lexa Singh RVT
== END | disposition home or self-care (01) ==
LOC: CVS 12:30
PROVIDERS: PCP Family Medicine; Referring Provider Podiatrist Foot & Ankle Surgery; Visit Provider Podiatrist Foot & Ankle Surgery
DX: I73.89 Other specified peripheral vascular diseases (principal); M79.604 Pain in right leg; M79.605 Pain in left leg
CPT/HCPCS: 93923; 93970

== ENCOUNTER 2024-01-17 13:36 | Emergency (ER) | payer MEDICAID, SELFPAY ==
[2024-01-17 13:37] VITALS: BP 113/73; PULSE 87; RESP 16; TEMP 36.6; O2SAT 99; BMI 25.0
--- NOTE | 2024-01-17 15:07 | ED.RN ---
Pt not in triage area when called for room.
--- NOTE | 2024-01-17 15:17 | EKG12_ITS ---
Test Reason : CP Blood Pressure : / mmHG Vent. Rate : 086 BPM Atrial Rate : 086 BPM P-R Int : 148 ms QRS Dur : 090 ms QT Int : 376 ms P-R-T Axes : 070 069 056 degrees QTc Int : 449 ms Normal sinus rhythm Normal ECG Confirmed by MOJGAN LAYTON, ONOFRE ([id number]), online content editor VENKAT LOREDO ([id number]) on 01/19/2024 8:05:28 AM Referred By: LUKE/BLADE Confirmed By:ONOFRE ULRICH MD
== END 2024-01-17 15:00 | disposition left against medical advice (07) ==
LOC: ED 16:32
PROVIDERS: PCP Family Medicine
DX: Z53.21 Procedure and treatment not carried out due to patient leaving prior to being seen by health care provider (principal)
CPT/HCPCS: 93005

== ENCOUNTER 2024-02-01 16:47 | Emergency (ER) | payer MEDICAID, SELFPAY ==
[2024-02-01 16:47] VITALS: BP 164/96; PULSE 110; RESP 26; TEMP 36.6; O2SAT 100; BMI 24.7
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
[2024-02-01 18:35] LABS: Absolute Lymphocyte Count 2.08 X10^3/uL (0.83-4.51); Absolute Neutrophil Count 7.7 X10^3/uL (2.0-7.7); Basophil# 0.11 X10^3/uL; Eosinophils% 1.8 % (0-5); Hemoglobin 14.6 g/dL (12.0-15.0); Lymphocyte # 2.08 X10^3/ul (0.83-4.51); Lymphocyte % 19.2 % (19-41); Mean Corp Hgb Conc 31.7 g/dL (32-36); Mean Corpuscular Hgb 30.1 pg (27.0-32.0); Mean Corpuscular Volume 94.8 fL (81-99); Mean Platelet Vol. 9.6 fl (6.2-12.0); Monocyte# 0.65 X10^3/uL; NRBC Flagged by Analyzer 0 % (0-5); Neutrophil # 7.71 X10^3/uL (2.7-7.7); Neutrophil % 71.1 % (47-70); Platelet Count 308 K/mm3 (150-450); RBC Distribution Width CV 14.7 % (11.6-14.6); RBC Distribution Width SD 51.3 fl (35.1-43.9); Red Blood Count 4.85 M/mm3 (4.2-5.4); White Blood Count 10.9 K/mm3 (4.4-11.0)
--- NOTE | 2024-02-01 18:40 | RAD_ITS ---
STUDY: X-RAY CHEST REASON FOR EXAM: Female, 43 years old. chest pain TECHNIQUE: AP portable COMPARISON: None. FINDINGS: The lungs are clear and expanded. There is no demonstrated pleural abnormality. Normal size heart. Normal mediastinum and sebastián. Normal visualized pulmonary arteries. Normal visualized aortic arch and descending thoracic aorta. Spinal stimulator noted with electrode in the mid thoracic spine Normal visualized thoracic spine. Normal visualized ribs, clavicles, and shoulders. There is no demonstrated abnormality of the visualized soft tissue structures of the upper abdomen. RAD/Chest 1 View (Portable) IMPRESSION: No acute cardiopulmonary pathology Electronically Signed: Dandy Saunders MD at 19:27 EDT ,
[2024-02-01 18:42] LABS: Internal QC Validated? YES +Cl - CLEAR BKGD; Pregnancy, Serum, hCG Quali. NEGATIVE Negative
[2024-02-01 18:44] LABS: Alcohol, Blood (Medical)-Serum < 3.0 mg/dL
[2024-02-01] MEDS: Acetaminophen 325 MG Tablet 650 MG PO (18:45)
[2024-02-01] MEDS: LORazepam 1 MG Tablet PO (18:45)
[2024-02-01] MEDS: SUMAtriptan 6 MG/0.5 ML Vial SC (18:46)
[2024-02-01 19:00] LABS: ALB/GLOB Ratio 1.1 RATIO (0.9-2.4); AST(SGOT) 23 U/L (15-37); Alanine Aminotransfer ALT/SGPT 45 U/L (13-56); Alkaline Phosphatase 110 U/L (45-117); Anion Gap 6 (5-15); BUN 12 mg/dL (7-18); BUN/Creat Ratio 12.2 RATIO (10-20); Calcium,Total 9.5 mg/dL (8.5-10.1); Chloride 108 mmol/L (98-107); Creatinine, Serum 0.98 mg/dL (0.55-1.02); EST Glomerular Filtration Rate 66 mL/min (>60); Est Glom Filt Rate - Afr Amer 79 mL/min (>60); Estimated Creatinine Clearance 80.87 ml/min; Globulin 3.7 g/dL (2.2-4.2); Glucose 105 mg/dL (74-106); Potassium 3.5 mmol/L (3.5-5.1); Protein, Total 7.7 g/dL (6.4-8.2); Sodium Level 140 mmol/L (136-145); Troponin-I HS 6 pg/mL (3.0-54.0)
[2024-02-01 19:28] LABS: Amphetamine Urine VISTA NEGATIVE (<1000 ng/mL); Barbiturate Urine VISTA NEGATIVE (< 200 ng/mL); Benzodiazepine Urine VISTA NEGATIVE (< 200 ng/mL); Cocaine Urine VISTA NEGATIVE (< 300 ng/mL); Ecstacy Urine VISTA POSITIVE (< 500 ng/mL); Methadone Urine VISTA NEGATIVE (< 300 ng/mL); PCP Urine VISTA NEGATIVE (< 25 ng/mL); THC Urine VISTA POSITIVE (< 50 ng/mL); Vista UDS pH Range 5
--- NOTE | 2024-02-01 20:30 | ED.RN ---
PT became upset hysterically crying and demanding to be able to go outside after news of placement given by grizzly worker.
[2024-02-01] MEDS: Ziprasidone IM 20 MG/ML VIAL IM (20:32)
--- NOTE | 2024-02-01 22:51 | ED.RN ---
unable to keep awake to give evening medications.
[2024-02-02 01:26] VITALS: BP 124/76; PULSE 68; RESP 16; TEMP 36.8; O2SAT 99
--- NOTE | 2024-02-02 02:37 | ED.RN ---
report called to [facility]
[2024-02-02] MEDS: LORazepam 1 MG Tablet PO (05:58)
[2024-02-02 06:00] VITALS: BP 122/71; PULSE 70; RESP 16; O2SAT 99
[2024-02-02] MEDS: oxyCODONE 5 MG Tablet PO (06:15)
[2024-02-02 07:27] VITALS: BP 124/76; PULSE 68; RESP 16; TEMP 36.6; O2SAT 99
== END 2024-02-02 08:18 ==
PROVIDERS: Emergency Provider Emergency Medicine; PCP Family Medicine; Visit Provider Emergency Medicine
DX: F32.A Depression, unspecified (principal); F41.9 Anxiety disorder, unspecified; G43.909 Migraine, unspecified, not intractable, without status migrainosus; E78.5 Hyperlipidemia, unspecified; I10 Essential (primary) hypertension; M79.7 Fibromyalgia; K21.9 Gastro-esophageal reflux disease without esophagitis; F17.210 Nicotine dependence, cigarettes, uncomplicated; S50.812A Abrasion of left forearm, initial encounter; X58.XXXA Exposure to other specified factors, initial encounter
CPT/HCPCS: 71045; 80053; 80307; 82077; 84484; 84703; 85025; 93005; 96372; 99285; J3030

== ENCOUNTER → 2024-02-15 | Outpatient (CLI) | payer MEDICAID, SELFPAY | END | disposition home or self-care (01) | PROVIDERS: PCP Family Medicine; Visit Provider Psychiatry & Neurology Neurology | DX: E72.20 Disorder of urea cycle metabolism, unspecified (principal) | CPT/HCPCS: 36415; 82140 ==

== ENCOUNTER 2024-03-02 08:21 | Emergency (ER) | payer MEDICAID, SELFPAY ==
[2024-03-02 08:21] VITALS: BP 98/72; PULSE 57; RESP 16; TEMP 36.9; O2SAT 97; BMI 27.0
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
--- NOTE | 2024-03-02 09:05 | ED.RN ---
This RN went to give pt. Motrin after confirming with Dr. Wilson that was what he was prescribing. Pt. refused Motrin stated it upsets my stomach. Pt. then stated that the said he'd give me a shot of pain medication.. This rn confirmed Dr. Wilson told her he would give her something for pain, not a shot. pt. states well i take Percocet at home. This RN confirmed that while doing her med rec, pt. stated she did not have a prescription for Percocet. Pt. then stated I said i dont have a prescription for it. Dr. Wilson notified.
[2024-03-02 09:17] VITALS: BP 98/72; PULSE 57; RESP 16; TEMP 36.9; O2SAT 97
== END 2024-03-02 09:18 | disposition home or self-care (01) ==
PROVIDERS: Emergency Provider Emergency Medicine; PCP Family Medicine; Visit Provider Emergency Medicine
DX: M54.2 Cervicalgia (principal); M25.512 Pain in left shoulder; I10 Essential (primary) hypertension; E78.5 Hyperlipidemia, unspecified; M79.651 Pain in right thigh; F17.210 Nicotine dependence, cigarettes, uncomplicated; M79.652 Pain in left thigh; Z86.718 Personal history of other venous thrombosis and embolism; V49.9XXA Car occupant (driver) (passenger) injured in unspecified traffic accident, initial encounter
CPT/HCPCS: 71046; 99282

== ENCOUNTER 2024-03-12 21:36 | Emergency (ER) | payer MEDICAID, SELFPAY ==
[2024-03-12 21:36] VITALS: BP 112/81
[2024-03-12 21:37] VITALS: PULSE 69; RESP 16; TEMP 36.6; O2SAT 100; BMI 27.1
--- NOTE | 2024-03-12 21:51 | CT_ITS ---
INDICATION: trauma EXAMINATION: CT CHEST WITHOUT CONTRAST - CT Chest W/O Contrast Injection TECHNIQUE: Helically acquired images were obtained of the chest. The protocol utilizes one or more of the following dose reduction techniques: automated exposure control, adjustment of mA and/or kV according to patient size,and/or use of iterative reconstruction technique. IV Contrast dosage and agent: None. RADIATION DOSAGE (If Supplied By Facility): CTDIvol = ( 32.27 ) mGy, DLP = ( 3740.46 ) mGycm COMPARISON: FINDINGS: LUNGS, PLEURA AND LARGE AIRWAYS: No masses, consolidation, or edema. Mild patchy groundglass densities bilaterally. Basilar atelectasis. No pleural effusion or thickening. No pneumothorax. THYROID: No thyroid lesions. HEART AND PERICARDIUM: Heart size is normal. No pericardial effusion. CORONARY ARTERIES: Coronary artery calcification VESSELS: Thoracic aorta is not dilated. MEDIASTINUM AND AYDE: No mediastinal or hilar adenopathy. Esophagus is unremarkable. No hiatal hernia. UPPER ABDOMEN: No acute pathology. BONES: No suspicious lytic or blastic abnormality. Stimulator electrodes at the mid thoracic levels. CT/Chest without Contrast IMPRESSION: Basilar atelectasis. Mild patchy groundglass densities bilaterally. Electronically Signed: Cecilio Art DO at 0:04 EDT Reading Location ID and State: [facility] / [place] Tel [phone], Service support ,
--- NOTE | 2024-03-12 21:51 | CT_ITS ---
STUDY: CT BRAIN WITHOUT CONTRAST REASON FOR EXAM: Female, 43 years old. head injury RADIATION DOSAGE (If Supplied By Facility): CTDIvol = ( 32.24 ) mGy, DLP = ( 3740.46 ) mGycm TECHNIQUE: Transaxial CT imaging of the brain was performed without administration of intravenous contrast material. Individualized dose optimization techniques were used for this CT. COMPARISON: No relevant priors. FINDINGS: Normal soft tissue structures. Normal calvarium. Normal size ventricles and extra-axial spaces for the patient''s age. Normal white matter tracts of the cerebral hemispheres. Normal basal ganglia and thalami. Normal brainstem. Normal cerebellum. There is no intracranial hemorrhage. There are no findings of an acute ischemic infarction. Normal visualized paranasal sinuses. CT/Brain/Head without Contrast IMPRESSION: Normal unenhanced CT scan of the brain. Electronically Signed: Cecilio Art DO at 23:30 EDT ,
--- NOTE | 2024-03-12 21:51 | CT_ITS ---
INDICATION: trauma EXAMINATION: CT FACIAL BONES - CT Maxillofacial W/O Contrast Injection TECHNIQUE: Helically acquired images were obtained of the facial bones. A radiation dose optimization technique was used for this scan. The protocol utilizes one or more of the following dose reduction techniques: automated exposure control, adjustment of mA and/or kV according to patient size,and/or use of iterative reconstruction technique. IV Contrast dosage and agent: None. RADIATION DOSAGE (If Supplied By Facility): CTDIvol = ( 32.27 ) mGy, DLP = ( 3740.46 ) mGycm COMPARISON: FINDINGS: SOFT TISSUES: No focal subcutaneous swelling. No discrete fluid collections. VISUALIZED PARANASAL SINUSES: Clear. VISUALIZED MASTOID AIR CELLS: Clear. FACIAL BONES, MANDIBLE AND TMJs: No displaced facial bone fracture. No lytic or blastic abnormality. VISUALIZED DENTITION: No periodontal osseous erosion. ORBITAL CONTENTS: Both globes, extraocular muscles and retrobulbar fat appear unremarkable. CT/Sinus/Facial Bone IMPRESSION: No acute bony injury of the facial bones. Electronically Signed: Cecilio Art DO at 23:39 EDT Reading Location ID and State: [facility] / [place] Tel [phone], Service support ,
--- NOTE | 2024-03-12 21:51 | CT_ITS ---
STUDY: CT CERVICAL SPINE WITHOUT CONTRAST REASON FOR EXAM: Female, 43 years old. fall RADIATION DOSAGE (If Supplied By Facility): CTDIvol = ( 32.27 ) mGy, DLP = ( 3740.46 ) mGycm TECHNIQUE: High resolution transaxial imaging was performed without contrast material. Sagittal and coronal images were reconstructed. Individualized dose optimization techniques were used for this CT. COMPARISON: None FINDINGS: Normal craniovertebral junction. Normal anterior atlantoaxial articulation. Normal odontoid process. Normal cervical lordosis. Normal vertebral bodies and posterior osseous elements. C2-3: Normal endplates. Normal disc height and morphology. Normal central canal and intervertebral neuroforamina. C3-4: Normal endplates. Normal disc height and morphology. Normal central canal and intervertebral neuroforamina. C4-5: Normal endplates. Normal disc height and morphology. Normal central canal and intervertebral neuroforamina. C5-6: Normal endplates. Normal disc height and morphology. Normal central canal and intervertebral neuroforamina. C6-7: Normal endplates. Normal disc height and morphology. Normal central canal and intervertebral neuroforamina. C7-T1: Normal endplates. Normal disc height and morphology. Normal central canal and intervertebral neuroforamina. Normal visualized soft tissue structures. CT/Spine Cervical without Contras IMPRESSION: Normal unenhanced CT examination of the cervical spine. Electronically Signed: Cecilio rAt DO at 23:44 EDT Reading Location ID and State: [facility] / [place] Tel [phone], Service support ,
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
[2024-03-12] MEDS: Ondansetron 4 MG/2 ML Vial IV (22:11)
[2024-03-12 22:32] LABS: Absolute Lymphocyte Count 2.58 X10^3/uL (0.83-4.51); Absolute Neutrophil Count 3.1 X10^3/uL (2.0-7.7); Basophil% 1.5 % (0-1); Eosinophil# 0.23 X10^3/uL; Eosinophils% 3.5 % (0-5); Hematocrit 38.9 % (37-47); Hemoglobin 12.3 g/dL (12.0-15.0); Lymphocyte # 2.58 X10^3/ul (0.83-4.51); Lymphocyte % 39.5 % (19-41); Mean Corp Hgb Conc 31.6 g/dL (32-36); Mean Corpuscular Hgb 30.1 pg (27.0-32.0); Mean Corpuscular Volume 95.1 fL (81-99); Monocyte# 0.48 X10^3/uL; Monocyte% 7.4 % (0-10); NRBC Flagged by Analyzer 0 % (0-5); Neutrophil # 3.09 X10^3/uL (2.7-7.7); Neutrophil % 47.3 % (47-70); Platelet Count 259 K/mm3 (150-450); RBC Distribution Width CV 14.5 % (11.6-14.6); RBC Distribution Width SD 50.4 fl (35.1-43.9); Red Blood Count 4.09 M/mm3 (4.2-5.4); White Blood Count 6.5 K/mm3 (4.4-11.0)
[2024-03-12 22:39] LABS: Alcohol, Blood (Medical)-Serum < 3.0 mg/dL
[2024-03-12 22:43] LABS: AST(SGOT) 24 U/L (15-37); Alanine Aminotransfer ALT/SGPT 46 U/L (13-56); Albumin, Serum 3.1 g/dL (3.2-5.0); Alkaline Phosphatase 105 U/L (45-117); Anion Gap 3 (5-15); BUN 11 mg/dL (7-18); BUN/Creat Ratio 11.8 RATIO (10-20); Chloride 116 mmol/L (98-107); Creatinine, Serum 0.94 mg/dL (0.55-1.02); EST Glomerular Filtration Rate 70 mL/min (>60); Est Glom Filt Rate - Afr Amer 84 mL/min (>60); Estimated Creatinine Clearance 92.73 ml/min; Globulin 3.1 g/dL (2.2-4.2); Glucose 123 mg/dL (74-106); Potassium 3.6 mmol/L (3.5-5.1); Protein, Total 6.2 g/dL (6.4-8.2); Sodium Level 145 mmol/L (136-145)
[2024-03-12 23:31] LABS: Bacteria 0 SEEN /hpf (None Seen); Mucous, Urine 0 SEEN /hpf (<or=2+)
[2024-03-12 23:35] LABS: Color, Urine Yellow (Yellow); Glucose, Dipstick Normal (Normal); Ketone-Dipstick Negative (Negative); Leukocyte Esterase-Dipstick 25 /ul (Negative); Nitrite-Dipstick Negative (Negative); Occult Blood-Urine 25 /ul (Negative); Protein-Dipstick Negative (Negative); Specific Gravity, Urine 1.015 (1.002-1.030); Urine Bilirubin Dipstick Negative (Negative); Urine Clarity Clear (Clear); Urine Urobilinogen Normal (Normal)
[2024-03-12 23:36] VITALS: BP 109/50; PULSE 68; RESP 18; O2SAT 99
[2024-03-12 23:51] LABS: Amphetamine Urine VISTA NEGATIVE (<1000 ng/mL); Barbiturate Urine VISTA NEGATIVE (< 200 ng/mL); Benzodiazepine Urine VISTA NEGATIVE (< 200 ng/mL); Cocaine Urine VISTA NEGATIVE (< 300 ng/mL); Ecstacy Urine VISTA POSITIVE (< 500 ng/mL); Methadone Urine VISTA NEGATIVE (< 300 ng/mL); PCP Urine VISTA NEGATIVE (< 25 ng/mL); THC Urine VISTA NEGATIVE (< 50 ng/mL); Vista UDS pH Range 5
[2024-03-12 23:56] LABS: Red Blood Cells-Urine 0-5 SEEN /hpf (0-5); Squamous Epithelial Cells - UA 0-5 SEEN /hpf (5-10); White Blood Cells 0-5 SEEN /hpf (0-5)
[2024-03-13 00:13] VITALS: BP 109/76; PULSE 77; RESP 18; TEMP 36.6; O2SAT 97
== END 2024-03-13 00:23 | disposition home or self-care (01) ==
PROVIDERS: Emergency Provider Emergency Medicine; PCP Family Medicine; Visit Provider Emergency Medicine
DX: S09.90XA Unspecified injury of head, initial encounter (principal); F17.210 Nicotine dependence, cigarettes, uncomplicated; S29.9XXA Unspecified injury of thorax, initial encounter; E78.5 Hyperlipidemia, unspecified; I10 Essential (primary) hypertension; J98.4 Other disorders of lung; W01.198A Fall on same level from slipping, tripping and stumbling with subsequent striking against other object, initial encounter; K21.9 Gastro-esophageal reflux disease without esophagitis; T88.7XXA Unspecified adverse effect of drug or medicament, initial encounter
CPT/HCPCS: 70450; 70486; 71250; 72125; 80053; 80307; 81001; 82077; 82140; 85025; 96374; 99285; A4216; J2405

== ENCOUNTER → 2024-03-16 | Outpatient (CLI) | payer MEDICAID, SELFPAY ==
[2024-03-16 15:44] LABS: Thyroid Stim Hormone (TSH) 0.497 uIU/mL (0.358-3.740)
== END | disposition home or self-care (01) ==
LOC: MFPLAB 11:47
PROVIDERS: PCP Family Medicine; Referring Provider Family Medicine; Visit Provider Family Medicine
DX: R63.5 Abnormal weight gain (principal)
CPT/HCPCS: 36415; 84443

== ENCOUNTER → 2024-04-07 | Outpatient (CLI) | payer MEDICAID, SELFPAY ==
[2024-04-07 12:27] LABS: Absolute Lymphocyte Count 2.11 X10^3/uL (0.83-4.51); Absolute Neutrophil Count 4.4 X10^3/uL (2.0-7.7); Basophil# 0.11 X10^3/uL; Basophil% 1.5 % (0-1); Eosinophil# 0.25 X10^3/uL; Eosinophils% 3.3 % (0-5); Hematocrit 44.8 % (37-47); Hemoglobin 14.4 g/dL (12.0-15.0); Lymphocyte # 2.11 X10^3/ul (0.83-4.51); Lymphocyte % 28.2 % (19-41); Mean Corp Hgb Conc 32.1 g/dL (32-36); Mean Corpuscular Hgb 30.2 pg (27.0-32.0); Mean Corpuscular Volume 93.9 fL (81-99); Mean Platelet Vol. 10.4 fl (6.2-12.0); Monocyte# 0.61 X10^3/uL; Monocyte% 8.2 % (0-10); NRBC Flagged by Analyzer 0 % (0-5); Neutrophil # 4.36 X10^3/uL (2.7-7.7); Neutrophil % 58.3 % (47-70); Platelet Count 311 K/mm3 (150-450); RBC Distribution Width CV 13.7 % (11.6-14.6); RBC Distribution Width SD 47.7 fl (35.1-43.9); Red Blood Count 4.77 M/mm3 (4.2-5.4); White Blood Count 7.5 K/mm3 (4.4-11.0)
[2024-04-07 12:37] LABS: Anion Gap 7 (5-15); BUN 11 mg/dL (7-18); BUN/Creat Ratio 11.4 RATIO (10-20); Calcium,Total 9.2 mg/dL (8.5-10.1); Chloride 110 mmol/L (98-107); Creatinine, Serum 0.96 mg/dL (0.55-1.02); EST Glomerular Filtration Rate 67 mL/min (>60); Est Glom Filt Rate - Afr Amer 81 mL/min (>60); Glucose 100 mg/dL (74-106); Potassium 3.4 mmol/L (3.5-5.1); Sodium Level 141 mmol/L (136-145)
== END | disposition home or self-care (01) ==
LOC: MFPLAB 10:14
PROVIDERS: PCP Family Medicine; Visit Provider Family Medicine
DX: Z01.818 Encounter for other preprocedural examination (principal)
CPT/HCPCS: 36415; 80048; 85025

== ENCOUNTER 2024-04-22 09:47 | Day surgery (SDC) | payer MEDICAID, SELFPAY ==
[2024-04-22] VITALS (9 sets, daily range): BP systolic 134–147; BP diastolic 64–91; PULSE 99–104; RESP 16–18; TEMP 36.2–36.6; O2SAT 98–100; BMI 25.7
[2024-04-22] MEDS: Lactated Ringers 1,000 ML 15 ML IV (10:15)
[2024-04-22 10:22] LABS: Internal QC Validated? YES +Cl - CLEAR BKGD; Pregnancy, Urine Negative Negative
[2024-04-22] MEDS: Cefazolin 2 GM in Syringe IV (13:10)
[2024-04-22] MEDS: Bupivacaine Mpf 0.5% 30 ML VIAL ×2 (13:30→13:40)
[2024-04-22] MEDS: oxyCODONE 5 MG Tablet PO (14:37)
[2024-04-22] MEDS: Acetaminophen 325 MG Tablet PO (14:37)
== END 2024-04-22 14:55 | disposition home or self-care (01) ==
LOC: SDC 09:49 → AC 09:50
PROVIDERS: Anesthesiology; PCP Family Medicine; Referring Provider Podiatrist Foot & Ankle Surgery; Visit Provider Podiatrist Foot & Ankle Surgery
PROC: (CPT 29999; principal; 2024-04-22 11:15)
DX: M67.01 Short Achilles tendon (acquired), right ankle (principal); F31.9 Bipolar disorder, unspecified; M21.371 Foot drop, right foot; M79.604 Pain in right leg; G89.29 Other chronic pain; I10 Essential (primary) hypertension; Z79.891 Long term (current) use of opiate analgesic; Z79.1 Long term (current) use of non-steroidal anti-inflammatories (NSAID); Z79.899 Other long term (current) drug therapy
CPT/HCPCS: 29999; 64445; 01474; 81025; J7120; J2405

== ENCOUNTER 2024-05-26 15:24 | Emergency (ER) | payer MEDICAID, SELFPAY ==
[2024-05-26 15:25] VITALS: BP 157/98; PULSE 90; RESP 16; TEMP 36.8; O2SAT 97
--- NOTE | 2024-05-26 15:35 | VDLE_ITS ---
Reason For Study: RLE Pain RIGHT GSV is normal. CFV is compressible, spontaneous, phasic, competent and demonstrates normal augmentation. FV is compressible, spontaneous, phasic, competent and demonstrates normal augmentation. POP V is compressible, spontaneous, phasic, competent and demonstrates normal augmentation. T/P Trunk is compressible. PTV is compressible. RT PerV is compressible. Procedure This is a venous duplex using B-mode, color flow and spectral Doppler. Exam performed portable in ED. The exam was diagnostic. A preliminary report was called and/or faxed to ED surveillance system monitor. VL/Venous Duplex US, Unilateral Interpretation Summary Deep veins of the right lower extremity are patent and compressible segmentally . There is no evidence of right lower extremity deep vein thrombosis. Valvular competence tena ears intact within the proximal deep venous system on the right . The right great saphenous vein a ppears patent and compressible segmentally. Ordering Physician: Laurel Johnson Referring Physician: Tom Giraldo Performed By: Lexa Singh RVT
--- NOTE | 2024-05-26 16:01 | EX.ED.DYSGE1 ---
HPI <JOHANNA Berg - Last Filed: 05/26/24 16:25> History of Present Illness Chief Complaint: Lower Extremity Injury Narrative Narrative: 44-year-old female states she had right ankle surgery on April [address] Miramontes due to dropfoot. Over the last few days she has had pain in the right calf. She has a history of remote DVT in the right leg. She is not on blood thinners. She denies chest pain or shortness of breath. PFSH <JOHANNA Berg - Last Filed: 05/26/24 16:25> [facility] Medical History Chronic pain Restless legs Loss of hearing Wears glasses Incontinence Back pain History of pain when walking Gastroparalysis Bipolar disorder Ureteral calculus, right GERD (gastroesophageal reflux disease) Kidney stones Wears dentures Depression Walker as ambulation aid Arthritis DVT (deep venous thrombosis) Blackout Smoker Shortness of breath on exertion Fibromyalgia History of edema History of stress test Opioid use disorder Personality disorder, unspecified Major depressive disorder, recurrent, unspecified HLD (hyperlipidemia) IBS (irritable bowel syndrome) Migraine Insomnia Anxiety panic HTN (hypertension) Home Medications ?Medication ?Instructions ?Recorded ?Last Taken ?Type nortriptyline 50 mg capsule 100 mg PO QHS depression 10/13/17 11/12/23 History (Pamelor) propranolol 20 mg tablet 20 mg PO BID HIGH BLOOD PRESSURE 05/03/20 11/12/23 History lamotrigine 200 mg tablet 200 mg PO DAILY MOOD 08/02/22 11/12/23 History lorazepam 1 mg tablet 1 mg PO BID PRN anxiety 08/02/22 11/12/23 History spironolactone 25 mg tablet 25 mg PO DAILY BLOOD PRESSURE 08/02/22 11/12/23 History tizanidine 4 mg tablet 4 mg PO TID PRN Muscle Pain 08/02/22 11/12/23 History gabapentin 800 mg tablet 800 mg PO TID 10/15/23 11/12/23 History clonidine HCl 0.1 mg tablet 0.2 mg PO QHS BLOOD PRESSURE 11/13/23 11/12/23 History dicyclomine 10 mg capsule 10 mg PO 4X/DAY ABDOMINAL CRAMPS 11/13/23 11/12/23 History fluorometholone 0.1 % eye 1 drp ophthalmic (eye) BID 11/13/23 11/12/23 History drops,suspension hyoscyamine sulfate 0.125 mg 0.125 mg sublingual 4X/DAY PRN 11/13/23 11/12/23 History disintegrating tablet abdominal discomfort lidocaine-prilocaine 2.5 %-2.5 % 1 applic topical DAILY PRN skin 11/13/23 11/12/23 History topical cream irritation promethazine 25 mg tablet 12.5 - 25 mg PO DAILY PRN nausea 11/13/23 Unknown History and vomiting ferrous sulfate 325 mg (65 mg 325 mg PO DAILY SUPPLEMENT #30 tabs 02/15/24 Unknown Rx iron) tablet flurbiprofen 100 mg tablet 100 mg PO TID PRN pain #90 tabs 02/15/24 Unknown Rx folic acid 1 mg tablet 1 mg PO DAILY SUPPLEMENT #30 tabs 02/15/24 Unknown Rx lactulose 10 gram/15 mL oral 15 ml PO DAILY CONSTIPATION #473 mL 02/15/24 Unknown Rx solution bupropion HCl 300 mg 24 hr tablet, 300 mg PO DAILY 04/18/24 Unknown History extended release cariprazine 3 mg capsule (Vraylar) 3 mg PO QHS 04/18/24 Unknown History duloxetine 60 mg capsule,delayed 120 mg PO DAILY 04/18/24 Unknown History release medroxyprogesterone 150 mg/mL 150 mg IM .Q3MO 04/18/24 Unknown History intramuscular syringe meloxicam 7.5 mg tablet 7.5 mg PO BID PRN pain 04/18/24 Unknown History oxycodone-acetaminophen 7.5 mg-325 1 tab PO Q12H PRN pain 04/18/24 Unknown History mg tablet quetiapine 50 mg tablet 50 mg PO QHS 04/18/24 Unknown History sumatriptan succinate 100 mg tablet 100 mg PO Q2H PRN migraine headache 04/18/24 Unknown History topiramate 50 mg tablet 50 mg PO QHS 04/18/24 Unknown History acetaminophen 500 mg tablet 500 mg PO Q6H 7 days #28 tabs 04/22/24 Unknown Rx (Tylenol Extra Strength) ascorbic acid (vitamin C) 1,000 mg 1 g PO DAILY 90 days #90 tabs 04/22/24 Unknown Rx tablet (Vitamin C) calcium 500 mg (as 1 tab PO DAILY 90 days #90 tabs 04/22/24 Unknown Rx carbonate)-vitamin D3 15 mcg (600 unit) tablet (Os-Alexander 500 + D3) cyclobenzaprine 10 mg tablet 10 mg PO TID muscle spasm 7 days 04/22/24 Unknown Rx #21 tabs docusate sodium 100 mg capsule 100 mg PO DAILY 10 days #10 caps 04/22/24 Unknown Rx (Colace) ondansetron 8 mg disintegrating 8 mg PO DAILY 5 days #5 tabs 04/22/24 Unknown Rx tablet oxycodone-acetaminophen 10 mg-325 1 tab PO Q6H pain 7 days #28 tabs 04/22/24 Unknown Rx mg tablet (Percocet) oxycodone-acetaminophen 10 mg-325 1 tab PO Q6H pain 7 days #28 tabs 04/28/24 Unknown Rx mg tablet (Percocet) oxycodone-acetaminophen 10 mg-325 1 tab PO Q6H pain 7 days #28 tabs 05/09/24 Unknown Rx mg tablet (Percocet) acetaminophen 500 mg tablet 500 mg PO Q6H 7 days #28 tabs 05/19/24 Unknown Rx (Tylenol Extra Strength) oxycodone-acetaminophen 10 mg-325 1 tab PO Q6H pain 7 days #28 tabs 05/19/24 Unknown Rx mg tablet (Percocet) Allergy/AdvReac Type Severity Reaction Status Date / Time aspirin AdvReac Mild Nausea Verified 05/26/24 15:27 Family History Father Hypertension Heart disease Brother CAD (coronary artery disease) Myocardial infarction Mother Heart disease Myocardial infarction Surgical History Hx of cystoscopy Hx of cystoscopy History of cholecystectomy History of repair of hiatal hernia History of esophagogastroduodenoscopy (EGD) S/P laparoscopic cholecystectomy Social History household members: children Smoking Status: Current every day smoker tobacco type: e-cigarettes alcohol intake: never substance use type: does not use ROS <JOHANNA Berg - Last Filed: 05/26/24 16:25> ROS ED ROS Narrative Constitutional: Negative for fever, chills. CVS: Negative for chest pain. Respiratory: Negative for shortness of breath. Skin: Negative for rash, abscess, or wound. Musc: Negative for joint pain. EXAM <JOHANNA Berg - Last Filed: 05/26/24 16:25> Physical Exam Narrative Exam Narrative: CONST: Patient crying sitting in bed. EYES: Normal inspection. NECK: Normal inspection. RESP: No respiratory distress, CTAB. CVS: Regular rate and rhythm, no murmur, no gallop. SKIN: Color normal, no rash, warm, dry, intact. EXTREMITIES: Mild swelling of right calf with tenderness to palpation, no warmth or palpable cords. Normal appearance of all joints, able to range right knee, chronic right foot drop. 2+ DP pulses. Compartments soft. NEURO: Alert and answering questions appropriately. PSYCH: Normal affect. Const Vital Signs: 05/26/24 15:25 Temperature 98.2 F Temperature Source Oral Pulse Rate 90 Respiratory Rate 16 Blood Pressure 157/98 H Blood Pressure Mean 117 Pulse Ox 97 Oxygen Delivery Method Room Air <Dr. Landry Goldsmith MD - Last Filed: 05/26/24 16:31> Physical Exam Const Vital Signs: 05/26/24 15:25 Temperature 98.2 F Temperature Source Oral Pulse Rate 90 Respiratory Rate 16 Blood Pressure 157/98 H Blood Pressure Mean 117 Pulse Ox 97 Oxygen Delivery Method Room Air MDM <Dr. Landry Goldsmith MD - Last Filed: 05/26/24 16:31> MDM MDM Narrative Medical decision making narrative: I have personally performed a face to face assessment of the patient and have reviewed the SAHARA Note. I performed a substantive portion of the visit including all aspects of the following. My dorantes findings include: History is remarkable for patient being sent in to rule out DVT. There is evidence of trauma on her leg. She denies chest pain or shortness of breath. She is not on any hormonal therapy. She is in chronic pain management. She denies paresthesia, anesthesia or motor weakness. Exam is right calf is swollen. Does have tenderness posteriorly. But there is also bruising noted anteriorly. There is no neurovascular compromise. Medical Decision Making venous duplex study was obtained to rule out DVT. Venous duplex study was negative. Patient was discharged to home with appropriate home-going structures. Since she is in pain management and her findings are not that significant she can take her own pain medicine. Other additions or changes: [None] Discharge Plan Triage Chief Complaint: Lower Extremity Injury ED Midlevel Provider: Laurel Johnson ED Provider: Landry Goldsmith Dx/Rx/DC Orders Clinical Impression: Right calf pain Instructions: Communicating About Pain Prescriptions: No Action gabapentin 800 mg tablet 800 mg PO TID ferrous sulfate 325 mg (65 mg iron) tablet 325 mg PO DAILY Qty: 30 7RF flurbiprofen 100 mg tablet 100 mg PO TID PRN (Reason: pain) Qty: 90 7RF folic acid 1 mg tablet 1 mg PO DAILY Qty: 30 7RF lactulose 10 gram/15 mL solution 15 ml PO DAILY Qty: 473 7RF nortriptyline [Pamelor] 50 MG capsule 100 mg PO QHS propranolol 20 MG tablet 20 mg PO BID lamotrigine 200 mg tablet 200 mg PO DAILY tizanidine 4 mg tablet 4 mg PO TID PRN (Reason: Muscle Pain) spironolactone 25 mg tablet 25 mg PO DAILY lorazepam 1 mg tablet 1 mg PO BID PRN (Reason: anxiety) clonidine HCl 0.1 mg tablet 0.2 mg PO QHS dicyclomine 10 mg capsule 10 mg PO 4X/DAY hyoscyamine sulfate 0.125 mg tablet,disintegrating 0.125 mg sublingual 4X/DAY PRN (Reason: abdominal discomfort) lidocaine-prilocaine 2.5-2.5 % cream 1 applic topical DAILY PRN (Reason: skin irritation) promethazine 25 mg tablet 12.5 - 25 mg PO DAILY PRN (Reason: nausea and vomiting) fluorometholone 0.1 % drops,suspension 1 drp ophthalmic (eye) BID bupropion HCl 300 mg tablet extended release 24 hr 300 mg PO DAILY meloxicam 7.5 mg tablet 7.5 mg PO BID PRN (Reason: pain) medroxyprogesterone 150 mg/mL syringe 150 mg IM .Q3MO oxycodone-acetaminophen 7.5-325 mg tablet 1 tab PO Q12H PRN (Reason: pain) quetiapine 50 mg tablet 50 mg PO QHS Vraylar 3 mg capsule 3 mg PO QHS sumatriptan succinate 100 mg tablet 100 mg PO Q2H PRN (Reason: migraine headache) topiramate 50 mg tablet 50 mg PO QHS Rx Instructions: Begin after completing 1 week course of topiramate 25 mg twice a day duloxetine 60 mg capsule,delayed release(DR/EC) 120 mg PO DAILY oxycodone-acetaminophen [Percocet] 10-325 mg tablet 1 tab PO Q6H 7 Days Qty: 28 0RF docusate sodium [Colace] 100 mg capsule 100 mg PO DAILY 10 Days Qty: 10 0RF cyclobenzaprine 10 mg tablet 10 mg PO TID 7 Days Qty: 21 0RF calcium carbonate-vitamin D3 [Os-Alexander 500 + D3] 500 mg-15 mcg (600 unit) tablet 1 tab PO DAILY 90 Days Qty: 90 0RF ascorbic acid (vitamin C) [Vitamin C] 1,000 mg tablet 1 g PO DAILY 90 Days Qty: 90 0RF acetaminophen [Tylenol Extra Strength] 500 mg tablet 500 mg PO Q6H 7 Days Qty: 28 0RF ondansetron 8 mg tablet,disintegrating 8 mg PO DAILY 5 Days Qty: 5 0RF oxycodone-acetaminophen [Percocet] 10-325 mg tablet 1 tab PO Q6H 7 Days Qty: 28 0RF oxycodone-acetaminophen [Percocet] 10-325 mg tablet 1 tab PO Q6H 7 Days Qty: 28 0RF oxycodone-acetaminophen [Percocet] 10-325 mg tablet 1 tab PO Q6H 7 Days Qty: 28 0RF acetaminophen [Tylenol Extra Strength] 500 mg tablet 500 mg PO Q6H 7 Days Qty: 28 0RF Primary Care Provider: Tom Giraldo Referrals: Tom Giraldo MD [Primary Care Provider] - Activity Restrictions/Additional Instructions: Your ultrasound was negative for a blood clot. I recommend Tylenol or ibuprofen as needed. Print Language: Turkmen Disposition Disposition: Home, Self Care
--- NOTE | 2024-05-26 16:12 | ED.RN ---
PT IN ROOM. PT SCREAMING IN PAIN DR OBRIEN AND PA ENTER ROOM. UPON NEGATIVE DVT STUDY PT REQUESTED PAIN MEDICATION AGAIN. PT OFFERRED TORADOL INJECTION. PT REFUSES AND DECLINES TREATMENT AND REQUESTS TO LEAVE
--- NOTE | 2024-05-26 16:41 | ED.RN ---
Pt not in room, left prior to receiving discharge papers. Pt had been ambulating in room without difficulty.
== END 2024-05-26 16:44 | disposition home or self-care (01) ==
PROVIDERS: Emergency Provider Emergency Medicine; PCP Family Medicine; Visit Provider Emergency Medicine
DX: M79.661 Pain in right lower leg (principal); I10 Essential (primary) hypertension; Z86.718 Personal history of other venous thrombosis and embolism; M79.89 Other specified soft tissue disorders; E78.5 Hyperlipidemia, unspecified; K21.9 Gastro-esophageal reflux disease without esophagitis; F17.290 Nicotine dependence, other tobacco product, uncomplicated
CPT/HCPCS: 93971; 99284

== ENCOUNTER → 2024-06-10 | Outpatient (CLI) | payer MEDICAID, SELFPAY ==
[2024-06-10 11:04] LABS: Anion Gap 5 (5-15); BUN 10 mg/dL (7-18); BUN/Creat Ratio 9.7 RATIO (10-20); Calcium,Total 9.2 mg/dL (8.5-10.1); Chloride 113 mmol/L (98-107); Cholesterol 156 mg/dL (200); Creatinine, Serum 1.03 mg/dL (0.55-1.02); EST Glomerular Filtration Rate 62 mL/min (>60); Est Glom Filt Rate - Afr Amer 75 mL/min (>60); Glucose 99 mg/dL (74-106); High Density Lipoprotein 47 mg/dL; Potassium 3.4 mmol/L (3.5-5.1); Sodium Level 145 mmol/L (136-145); Triglycerides 101 mg/dL; Very Low Density Lipoprotein 20 mg/dL (5-40)
== END | disposition home or self-care (01) ==
LOC: MFPLAB 09:29
PROVIDERS: PCP Family Medicine; Referring Provider Family Medicine; Visit Provider Family Medicine
DX: E78.5 Hyperlipidemia, unspecified (principal); Z86.39 Personal history of other endocrine, nutritional and metabolic disease
CPT/HCPCS: 36415; 80048; 80061

== ENCOUNTER → 2024-09-12 | Outpatient (CLI) | payer MEDICAID, SELFPAY ==
--- NOTE | 2024-09-12 07:45 | MRI_ITS ---
EXAM: MRI right ankle CLINICAL HISTORY: Achilles tendon tear COMPARISON: None TECHNIQUE: Multiplanar spin echo magnetic resonance images of the ankle in a [place] strength magnet FINDINGS: No acute fracture or stress reaction. Intact lateral ankle ligaments. Intact syndesmosis. Intact deltoid ligament. Intact spring ligament. Normal flexor tendons. Normal peroneal tendons. Normal extensor tendons. Normal plantar fascia. Thickening of the Achilles tendon at the musculotendinous junction with some surrounding edema consistent with non insertional Achilles tendinosis. No tendon tear. MRI/Lower Ext Joint Only (Routine) IMPRESSION: Non insertional Achilles tendinosis. Reading Location: [id number]
== END | disposition home or self-care (01) ==
LOC: MRI 07:25
PROVIDERS: PCP Family Medicine; Referring Provider Podiatrist Foot & Ankle Surgery; Visit Provider Podiatrist Foot & Ankle Surgery
DX: S86.011A Strain of right Achilles tendon, initial encounter (principal); X58.XXXA Exposure to other specified factors, initial encounter
CPT/HCPCS: 73721

== ENCOUNTER → 2024-10-07 | Outpatient (CLI) | payer MEDICAID, SELFPAY ==
[2024-10-07 15:18] LABS: Absolute Lymphocyte Count 2.08 X10^3/uL (0.83-4.51); Absolute Neutrophil Count 4.9 X10^3/uL (2.0-7.7); Basophil# 0.08 X10^3/uL; Eosinophil# 0.13 X10^3/uL; Eosinophils% 1.7 % (0-5); Hematocrit 42.2 % (37-47); Hemoglobin 13.3 g/dL (12.0-15.0); Lymphocyte # 2.08 X10^3/ul (0.83-4.51); Mean Corp Hgb Conc 31.5 g/dL (32-36); Mean Corpuscular Hgb 29.8 pg (27.0-32.0); Mean Corpuscular Volume 94.4 fL (81-99); Mean Platelet Vol. 10.3 fl (6.2-12.0); Monocyte# 0.46 X10^3/uL; NRBC Flagged by Analyzer 0 % (0-5); Neutrophil # 4.93 X10^3/uL (2.7-7.7); Neutrophil % 63.9 % (47-70); Platelet Count 342 K/mm3 (150-450); RBC Distribution Width CV 13.9 % (11.6-14.6); RBC Distribution Width SD 48.2 fl (35.1-43.9); Red Blood Count 4.47 M/mm3 (4.2-5.4); White Blood Count 7.7 K/mm3 (4.4-11.0)
[2024-10-07 15:47] LABS: Anion Gap 14 (5-15); BUN 11 mg/dL (4-19); BUN/Creat Ratio 8.7 RATIO (10-20); Calcium,Total 9.6 mg/dL (7.6-11.0); Chloride 110 mmol/L (98-108); Creatinine, Serum 1.22 mg/dL (0.70-1.20); EST Glomerular Filtration Rate 56 (>60); Glucose 75 mg/dL (70-99); Potassium 3.1 mmol/L (3.3-5.1); Sodium Level 144 mmol/L (133-145)
== END | disposition home or self-care (01) ==
PROVIDERS: PCP Family Medicine; Referring Provider Family Medicine; Visit Provider Family Medicine
DX: Z01.818 Encounter for other preprocedural examination (principal)
CPT/HCPCS: 36415; 80048; 85025

== ENCOUNTER → 2024-10-13 | Outpatient (CLI) | payer MEDICAID, SELFPAY ==
[2024-10-13 15:32] LABS: Hematocrit 47.2 % (37-47); Hemoglobin 15.5 g/dL (12.0-15.0); Mean Corp Hgb Conc 32.8 g/dL (32-36); Mean Corpuscular Hgb 29.9 pg (27.0-32.0); Mean Corpuscular Volume 91.1 fL (81-99); Mean Platelet Vol. 11.8 fl (6.2-12.0); Platelet Count 251 K/mm3 (150-450); RBC Distribution Width CV 14.1 % (11.6-14.6); RBC Distribution Width SD 47.1 fl (35.1-43.9); Red Blood Count 5.18 M/mm3 (4.2-5.4); White Blood Count 9.2 K/mm3 (4.4-11.0)
[2024-10-13 16:06] LABS: Hemoglobin A1c 5.3 % (<=5.6)
[2024-10-13 16:10] LABS: hCG Titer Quant., Serum < 1 mIU/mL (<9 non-preg)
[2024-10-13 17:58] LABS: Anion Gap 16 (5-15); BUN 8 mg/dL (4-19); BUN/Creat Ratio 7.3 RATIO (10-20); Calcium,Total 9.8 mg/dL (7.6-11.0); Chloride 107 mmol/L (98-108); Creatinine, Serum 1.12 mg/dL (0.70-1.20); EST Glomerular Filtration Rate 63 (>60); Glucose 99 mg/dL (70-99); Sodium Level 142 mmol/L (133-145); Vitamin D,25 Hydroxy 76.1 ng/mL (30-100)
== END | disposition home or self-care (01) ==
LOC: MTLAB 11:22
PROVIDERS: PCP Family Medicine; Referring Provider Family Medicine; Visit Provider Family Medicine
DX: Z01.818 Encounter for other preprocedural examination (principal)
CPT/HCPCS: 80323; 36415; 80048; 82306; 83036; 84702; 85027; G0480

== ENCOUNTER 2024-10-24 11:48 | Outpatient (CLI) | payer MEDICAID, SELFPAY ==
[2024-10-24 15:49] LABS: Anion Gap 16 (5-15); BUN 4 mg/dL (4-19); BUN/Creat Ratio 4.2 RATIO (10-20); Calcium,Total 10.1 mg/dL (7.6-11.0); Carbon Dioxide 20.8 mmol/L (21.0-32.0); Chloride 108 mmol/L (98-108); Creatinine, Serum 1.01 mg/dL (0.70-1.20); EST Glomerular Filtration Rate 71 (>60); Glucose 68 mg/dL (70-99); Sodium Level 144 mmol/L (133-145)
== END 2024-10-24 23:59 | disposition home or self-care (01) ==
LOC: MFPLAB 11:49
PROVIDERS: PCP Family Medicine; Referring Provider Family Medicine; Visit Provider Family Medicine
DX: E87.6 Hypokalemia (principal); M72.2 Plantar fascial fibromatosis
CPT/HCPCS: 36415; 80048; 97035; 97140

== ENCOUNTER 2024-11-03 02:35 | Emergency (ER) | payer MEDICAID, SELFPAY ==
[2024-11-03 02:36] VITALS: BP 115/85; PULSE 80; RESP 16; TEMP 36.9; O2SAT 100; BMI 24.2
[2024-11-03 02:40] VITALS: O2SAT 99
--- NOTE | 2024-11-03 02:52 | CT_ITS ---
PROCEDURE: BRAIN/HEAD WITHOUT CONTRAST 11/03/2024 REASON FOR EXAM: HEADACHE TECHNIQUE: BRAIN/HEAD WITHOUT CONTRAST Coronal and Sagittal reconstruction series were provided. One or more dose reduction techniques were used (e.g., Automated exposure control, adjustment of the mA and/or kV according to patient size, use of iterative reconstruction technique. RADIATION DOSE SUMMARY: CTDlvol: 44.99 mGy DLP: 812.98 mGycm COMPARISON: Prior study dated March 12, 2024. FINDINGS: Brain: Normal CSF Spaces: Normal Sinuses/Mastoids: Clear at visualized levels Bones: CT/Brain/Head without Contrast IMPRESSION: NORMAL NONCONTRAST HEAD CT. Reading [id number]
[2024-11-03] MEDS: 0.9% Normal Saline (1000mL) 1,000 ML 999 ML IV (03:04)
[2024-11-03] MEDS: Ondansetron 4 MG/2 ML Vial IV (03:05)
[2024-11-03] MEDS: HYDROmorphone 1 MG/ML Syringe IV ×2 (03:05→05:50)
[2024-11-03 03:15] LABS: Absolute Lymphocyte Count 1.04 X10^3/uL (0.83-4.51); Absolute Neutrophil Count 5.4 X10^3/uL (2.0-7.7); Basophil# 0.09 X10^3/uL; Basophil% 1.2 % (0-1); Eosinophil# 0.22 X10^3/uL; Hemoglobin 13.4 g/dL (12.0-15.0); Lymphocyte # 1.04 X10^3/ul (0.83-4.51); Lymphocyte % 14.1 % (19-41); Mean Corp Hgb Conc 31.2 g/dL (32-36); Mean Corpuscular Volume 96.2 fL (81-99); Mean Platelet Vol. 9.7 fl (6.2-12.0); Monocyte# 0.56 X10^3/uL; Monocyte% 7.6 % (0-10); NRBC Flagged by Analyzer 0 % (0-5); Neutrophil # 5.42 X10^3/uL (2.7-7.7); Neutrophil % 73.3 % (47-70); Platelet Count 300 K/mm3 (150-450); RBC Distribution Width CV 14.5 % (11.6-14.6); RBC Distribution Width SD 51.8 fl (35.1-43.9); Red Blood Count 4.47 M/mm3 (4.2-5.4); White Blood Count 7.4 K/mm3 (4.4-11.0)
--- NOTE | 2024-11-03 03:20 | RAD_ITS ---
PROCEDURE: ANKLE MIN 3 VIEWS 11/03/2024 REASON FOR EXAM: Ankle pain following a fall. TECHNIQUE: ANKLE MIN 3 VIEWS COMPARISON: None FINDINGS: Bones: Unremarkable Joints: Unremarkable Soft tissues: Unremarkable Other: RAD/Ankle min 3 Views IMPRESSION: NEGATIVE ANKLE SERIES Reading Location: [place] [id number]
--- NOTE | 2024-11-03 03:20 | RAD_ITS ---
PROCEDURE: HIP, UNI W/ PELVIS 2-3 VIEWS 11/03/2024 REASON FOR EXAM: PAIN TECHNIQUE: HIP, UNI W/ PELVIS 2-3 VIEWS COMPARISON: None FINDINGS: Bones: No fracture. Joints: Unremarkable Soft tissues: Unremarkable Other: RAD/HIP, UNI W/ Pelvis 2-3 Views IMPRESSION: NO ACUTE FRACTURE OR DISLOCATION. Reading Location: [place] [id number]
[2024-11-03 03:31] LABS: Anion Gap 10 (5-15); BUN 6 mg/dL (4-19); BUN/Creat Ratio 4.6 RATIO (10-20); Calcium,Total 9.1 mg/dL (7.6-11.0); Carbon Dioxide 19.3 mmol/L (21.0-32.0); Chloride 114 mmol/L (98-108); Creatinine, Serum 1.37 mg/dL (0.70-1.20); EST Glomerular Filtration Rate 49 (>60); Estimated Creatinine Clearance 57.26 ml/min (50-250); Glucose 60 mg/dL (70-99); Potassium 4.4 mmol/L (3.3-5.1); Sodium Level 143 mmol/L (133-145)
[2024-11-03 03:39] VITALS: BP 104/69; PULSE 64; RESP 16; TEMP 36.8; O2SAT 98
[2024-11-03 03:48] LABS: Magnesium 2.6 mg/dL (1.5-2.2)
[2024-11-03 04:35] VITALS: BP 104/69
--- NOTE | 2024-11-03 05:39 | EX.ED.DYSGE1 ---
HPI History of Present Illness Chief Complaint: Fall Informant: patient and EMS Narrative Narrative: Patient is a 44-year-old female with past medical history of fibromyalgia. She states she is scheduled to have surgery on her right foot/ankle secondary to recurrent pain in the joint. She states this evening she had a headache and decided to get in the shower to see if a warm shower would help with her symptoms. She states while she was in there she lost her balance and fell and could not get up. She states she was only on the ground for an hour or so as she was able to contact EMS for help. She denies striking her head or any loss of consciousness or history of bleeding disorder or blood thinner use. However because of the fall and persistent pain she is concern for underlying trauma associated with it and therefore presents for evaluation [facility] Medical History (Updated 11/03/24 @ 08:[address] Nicanor Longoria, ) Former smoker Chronic pain Restless legs Loss of hearing Wears glasses Incontinence Back pain History of pain when walking Gastroparalysis Bipolar disorder Ureteral calculus, right GERD (gastroesophageal reflux disease) Kidney stones Wears dentures Depression Walker as ambulation aid Arthritis DVT (deep venous thrombosis) Blackout Shortness of breath on exertion Fibromyalgia History of edema History of stress test Opioid use disorder Personality disorder, unspecified Major depressive disorder, recurrent, unspecified HLD (hyperlipidemia) IBS (irritable bowel syndrome) Migraine Insomnia Anxiety panic HTN (hypertension) Home Medications ?Medication ?Instructions ?Recorded ?Last Taken ?Type nortriptyline 50 mg capsule 100 mg PO QHS depression 10/13/17 11/12/23 History (Pamelor) propranolol 20 mg tablet 20 mg PO BID HIGH BLOOD PRESSURE 05/03/20 11/12/23 History lamotrigine 200 mg tablet 200 mg PO DAILY MOOD 08/02/22 11/12/23 History lorazepam 1 mg tablet 1 mg PO BID PRN anxiety 08/02/22 11/12/23 History spironolactone 25 mg tablet 25 mg PO DAILY BLOOD PRESSURE 08/02/22 11/12/23 History tizanidine 4 mg tablet 4 mg PO TID PRN Muscle Pain 08/02/22 11/12/23 History gabapentin 800 mg tablet 800 mg PO TID 10/15/23 11/12/23 History clonidine HCl 0.1 mg tablet 0.2 mg PO QHS BLOOD PRESSURE 11/13/23 11/12/23 History dicyclomine 10 mg capsule 10 mg PO 4X/DAY PRN ABDOMINAL 11/13/23 11/12/23 History CRAMPS fluorometholone 0.1 % eye 1 drp ophthalmic (eye) BID 11/13/23 11/12/23 History drops,suspension hyoscyamine sulfate 0.125 mg 0.125 mg sublingual 4X/DAY PRN 11/13/23 11/12/23 History disintegrating tablet abdominal discomfort promethazine 25 mg tablet 12.5 - 25 mg PO DAILY PRN nausea 11/13/23 Unknown History and vomiting bupropion HCl 300 mg 24 hr tablet, 300 mg PO DAILY 04/18/24 Unknown History extended release cariprazine 3 mg capsule (Vraylar) 3 mg PO QHS 04/18/24 Unknown History duloxetine 60 mg capsule,delayed 120 mg PO DAILY 04/18/24 Unknown History release medroxyprogesterone 150 mg/mL 150 mg IM .Q3MO 04/18/24 Unknown History intramuscular syringe meloxicam 7.5 mg tablet 7.5 mg PO BID PRN pain 04/18/24 Unknown History quetiapine 50 mg tablet 50 mg PO QHS 04/18/24 Unknown History ascorbic acid (vitamin C) 1,000 mg 1 g PO DAILY 90 days #90 tabs 04/22/24 Unknown Rx tablet (Vitamin C) calcium 500 mg (as 1 tab PO DAILY 90 days #90 tabs 04/22/24 Unknown Rx carbonate)-vitamin D3 15 mcg (600 unit) tablet (Os-Alexander 500 + D3) ferrous sulfate 325 mg (65 mg 325 mg PO DAILY SUPPLEMENT #30 tabs 08/08/24 Unknown Rx iron) tablet folic acid 1 mg tablet 1 mg PO DAILY SUPPLEMENT #30 tabs 08/08/24 Unknown Rx lactulose 10 gram/15 mL oral 15 ml PO DAILY CONSTIPATION #473 mL 08/08/24 Unknown Rx solution rizatriptan 10 mg tablet 10 mg PO .COMPLEX migraine 08/08/24 Unknown Rx headache #9 tabs topiramate 100 mg tablet 100 mg PO BID #60 tabs 08/08/24 Unknown Rx naproxen 500 mg tablet 500 mg PO BID PRN pain #60 tabs 09/01/24 Unknown Rx acetaminophen 500 mg tablet 500 mg PO Q6H PRN pain 10/11/24 Unknown History (Tylenol Extra Strength) ondansetron 8 mg disintegrating 8 mg PO DAILY PRN nausea and 10/11/24 Unknown History tablet vomiting oxycodone-acetaminophen 10 mg-325 1 tab PO Q6H PRN pain 10/11/24 Unknown History mg tablet (Percocet) Allergy/AdvReac Type Severity Reaction Status Date / Time aspirin AdvReac Mild Nausea Verified 10/11/24 14:52 Family History Father Hypertension Heart disease Brother CAD (coronary artery disease) Myocardial infarction Mother Heart disease Myocardial infarction Surgical History Hx of foot surgery Hx of cystoscopy Hx of cystoscopy History of cholecystectomy History of repair of hiatal hernia History of esophagogastroduodenoscopy (EGD) S/P laparoscopic cholecystectomy Social History household members: children Smoking Status: Former smoker alcohol intake: never substance use type: does not use ROS ROS ED Constitutional Constitutional ED: Denies chills or fever(s) Eyes Eyes: Denies blurry vision or change in vision ENT ENT ED: Denies sore throat Cardiovascular Cardiovascular: Reports other Details: Negative syncope ; Denies chest pain, palpitations or racing heartbeat Respiratory/Chest Respiratory/Chest: Denies cough or dyspnea Gastrointestinal Gastrointestinal: Denies abdominal pain, diarrhea, nausea or vomiting Genitourinary Genitourinary ED: Denies dysuria Musculoskeletal Musculoskeletal: Reports back pain and other Details: Positive right foot and hip pain ; Denies neck pain Integumentary Denies Abrasions or rash Neurologic Neurologic: Reports headache(s) and weakness Hematologic/Lymphatic Hematologic/Lymphatic: Denies easy bleeding or easy bruising EXAM Physical Exam Const Vital Signs: 11/03/24 02:36 11/03/24 02:40 11/03/24 03:39 Temperature 98.4 F 98.2 F Temperature Source Oral Temporal Pulse Rate 80 64 Respiratory Rate 16 16 Respiratory Effort Normal Respiratory Depth Normal Respiratory Pattern Normal Blood Pressure 115/85 H 104/69 Blood Pressure Mean 95 80 Pulse Ox 100 99 98 Oxygen Delivery Method Room Air Room Air Room Air 11/03/24 04:35 11/03/24 05:58 Temperature 98.4 F Temperature Source Pulse Rate 72 Respiratory Rate 18 Respiratory Effort Respiratory Depth Respiratory Pattern Blood Pressure 104/69 116/76 Blood Pressure Mean 80 89 Pulse Ox 96 Oxygen Delivery Method Positive well nourished and well developed General Appearance ED: well developed HEENT Reports dry mucous membranes HEENT Narrative: Mucous membranes are dry and tacky No tongue or lip swelling no oral lesions no airway edema or compromise No tongue or cheek biting to suggest seizure activity No signs of depressed or basilar skull fracture No secondary findings in the posterior pharynx to suggest infection Mouth ED: Yes dry mucous membranes Mouth: dry mucous membranes Eyes PERRL and EOMs intact bilaterally General Eye ED: Negative for scleral icterus Neck supple Neck Narrative: No bony deformity or step-off of the cervical spine no midline tenderness to palpation No nuchal rigidity or meningeal signs Chest Wall palpation of chest normal Resp normal respiratory effort and clear to auscultation bilaterally Cardio regular rate and regular rhythm Back/Spine Back/Spine Narrative: No bony deformity or step-off of the thoracic or lumbar spine Extremity Extremity Narrative: Pelvis is stable there is no shortening or external rotation of either lower extremity There is pain on palpation along the right pubic rami and greater trochanter region There is mild soft tissue swelling with faint erythema overlying the dorsal aspect of the right midfoot. No obvious bony deformity or joint effusion No ligamentous laxity noted All compartments are soft and compressible going against compartment syndrome Neuro oriented x3, CN's II-XII intact bilaterally and no sensory deficits noted Neuro Narrative: GCS of 15 Cranial nerves II through XII are grossly intact without focal neurologic deficit No pronator drift no dysmetria no truncal ataxia No nystagmus noted Sensorium / Orientation: alert Psych mental status grossly normal Skin Skin Narrative: Mild soft tissue swelling with faint erythema to the dorsal aspect of the right foot as documented above Skin turgor is slightly increased consistent with dehydration MDM MDM MDM Narrative Medical decision making narrative: Patient presented to the ER with stable vitals. She reported essentially losing her balance in the shower. Therefore I felt no need for cardiac or syncope workup. However as she did have a headache there is concern that this could be related to potential subarachnoid or subdural hemorrhage or a brain mass so a CT of the head was obtained. This revealed no acute findings. She does have a history of hypokalemia and with concern that she is having weakness secondary to hypo or hyperkalemia basic blood work was obtained. Labs revealed no clinically significant findings. In order to ensure there is no associated hip fracture or ankle fracture x-rays were obtained. Labs and images revealed no clinically significant findings and on reevaluation patient reported improvement of her symptoms. Therefore as she does not have signs of hypo or hyperkalemia or acute blood loss anemia or signs of traumatic brain injury or secondary infection or long bone injury she is otherwise safe for discharge. History & Record Review Discussion w/independent historian: Patient Lab Data Attestation: I reviewed the patient's lab results. Labs: Laboratory Results - last 24 hr 11/03/24 03:01 WBC 7.4 RBC 4.47 Hgb 13.4 Hct 43.0 MCV 96.2 MCH 30.0 MCHC 31.2 L RDW Std Deviation 51.8 H RDW Coeff of Raquel 14.5 Plt Count 300 MPV 9.7 Immature Gran % (Auto) 0.800 Neut % (Auto) 73.3 H Lymph % (Auto) 14.1 L [place] % (Auto) 7.6 Eos % (Auto) 3.0 Baso % (Auto) 1.2 H Absolute Neuts (auto) 5.4 Absolute Lymphs (auto) 1.04 Nucleated RBC % 0 Sodium 143 Potassium 4.4 Chloride 114 H Carbon Dioxide 19.3 L Anion Gap 10 BUN 6 Creatinine 1.37 H Estim Creat Clear Calc 57.26 Est GFR (MDRD) Non-Af 49 L BUN/Creatinine Ratio 4.6 L Glucose 60 L Calcium 9.1 Magnesium 2.6 H Radiography Diagnostic Testing: Right ankle x-ray as interpreted by the emergency medicine physician reveals no acute fracture dislocation or joint effusion Right hip x-ray with 1 view pelvis x-ray as interpreted by the emergency medicine physician reveals no acute fracture or dislocation Discharge Plan Triage Chief Complaint: Fall ED Provider: Nicanor Longoria Dx/Rx/DC Orders Clinical Impression: Mild dehydration, Cephalgia, Contusion of ankle, right, Fibromyalgia Instructions: ED Contusion, Lower Extremity, ED Dehydration (Adult) Prescriptions: No Action gabapentin 800 mg tablet 800 mg PO TID ferrous sulfate 325 mg (65 mg iron) tablet 325 mg PO DAILY Qty: 30 7RF folic acid 1 mg tablet 1 mg PO DAILY Qty: 30 7RF lactulose 10 gram/15 mL solution 15 ml PO DAILY Qty: 473 7RF rizatriptan 10 mg tablet 10 mg PO .COMPLEX Qty: 9 7RF Rx Instructions: Take 1 tablet orally every two hours as needed for headache up to three tablets per day topiramate 100 mg tablet 100 mg PO BID Qty: 60 7RF naproxen 500 mg tablet 500 mg PO BID PRN (Reason: pain) Qty: 60 4RF nortriptyline [Pamelor] 50 MG capsule 100 mg PO QHS propranolol 20 MG tablet 20 mg PO BID lamotrigine 200 mg tablet 200 mg PO DAILY tizanidine 4 mg tablet 4 mg PO TID PRN (Reason: Muscle Pain) spironolactone 25 mg tablet 25 mg PO DAILY lorazepam 1 mg tablet 1 mg PO BID PRN (Reason: anxiety) clonidine HCl 0.1 mg tablet 0.2 mg PO QHS dicyclomine 10 mg capsule 10 mg PO 4X/DAY PRN (Reason: ABDOMINAL CRAMPS) hyoscyamine sulfate 0.125 mg tablet,disintegrating 0.125 mg sublingual 4X/DAY PRN (Reason: abdominal discomfort) promethazine 25 mg tablet 12.5 - 25 mg PO DAILY PRN (Reason: nausea and vomiting) fluorometholone 0.1 % drops,suspension 1 drp ophthalmic (eye) BID bupropion HCl 300 mg tablet extended release 24 hr 300 mg PO DAILY meloxicam 7.5 mg tablet 7.5 mg PO BID PRN (Reason: pain) medroxyprogesterone 150 mg/mL syringe 150 mg IM .Q3MO quetiapine 50 mg tablet 50 mg PO QHS Vraylar 3 mg capsule 3 mg PO QHS duloxetine 60 mg capsule,delayed release(DR/EC) 120 mg PO DAILY calcium carbonate-vitamin D3 [Os-Alexander 500 + D3] 500 mg-15 mcg (600 unit) tablet 1 tab PO DAILY 90 Days Qty: 90 0RF ascorbic acid (vitamin C) [Vitamin C] 1,000 mg tablet 1 g PO DAILY 90 Days Qty: 90 0RF acetaminophen [Tylenol Extra Strength] 500 mg tablet 500 mg PO Q6H PRN (Reason: pain) ondansetron 8 mg tablet,disintegrating 8 mg PO DAILY PRN (Reason: nausea and vomiting) oxycodone-acetaminophen [Percocet] 10-325 mg tablet 1 tab PO Q6H PRN (Reason: pain) Primary Care Provider: Tom Giraldo Referrals: Tom Giraldo MD [Primary Care Provider] - Activity Restrictions/Additional Instructions: Your potassium was normal on today's evaluation at a value of 4.4. Images revealed no signs of trauma. Please continue all of your home medication as directed by your doctor and return to the ER should you have any further concerns Print Language: French Disposition Disposition: Home, Self Care Discharge Date/Time: 11/03/24 06:24
[2024-11-03 05:58] VITALS: BP 116/76; PULSE 72; RESP 18; TEMP 36.9; O2SAT 96
== END 2024-11-03 06:24 | disposition home or self-care (01) ==
PROVIDERS: Emergency Provider Emergency Medicine; PCP Family Medicine; Visit Provider Emergency Medicine
DX: E86.0 Dehydration (principal); M79.7 Fibromyalgia; I10 Essential (primary) hypertension; R51.9 Headache, unspecified; S90.01XA Contusion of right ankle, initial encounter; E78.5 Hyperlipidemia, unspecified; Z87.891 Personal history of nicotine dependence; K21.9 Gastro-esophageal reflux disease without esophagitis; W01.0XXA Fall on same level from slipping, tripping and stumbling without subsequent striking against object, initial encounter; Z86.39 Personal history of other endocrine, nutritional and metabolic disease
CPT/HCPCS: 36415; 70450; 73502; 73610; 80048; 83735; 85025; 96361; 96374; 96375; 96376; 99284; A4216; J2405

== ENCOUNTER → 2024-11-03 | Outpatient (CLI) | payer MEDICAID, SELFPAY ==
[2024-11-03 09:35] LABS: Magnesium 2.2 mg/dL (1.5-2.2)
[2024-11-03 10:03] LABS: Anion Gap 9 (5-15); BUN 6 mg/dL (4-19); BUN/Creat Ratio 4.9 RATIO (10-20); Carbon Dioxide 19.3 mmol/L (21.0-32.0); Chloride 114 mmol/L (98-108); Creatinine, Serum 1.15 mg/dL (0.70-1.20); EST Glomerular Filtration Rate 61 (>60); Glucose 101 mg/dL (70-99); Potassium 4.1 mmol/L (3.3-5.1); Sodium Level 143 mmol/L (133-145)
== END | disposition home or self-care (01) ==
LOC: LAB 07:53
PROVIDERS: Anesthesiology; PCP Family Medicine; Referring Provider Family Medicine; Visit Provider Family Medicine
DX: Z01.818 Encounter for other preprocedural examination (principal); Z86.39 Personal history of other endocrine, nutritional and metabolic disease
CPT/HCPCS: 36415; 80048; 83735

== ENCOUNTER 2024-11-07 09:47 | Inpatient (IN) | payer MEDICAID, SELFPAY ==
[2024-11-07 09:47] VITALS: BP 102/71; PULSE 110; RESP 18; TEMP 36.6; O2SAT 98; BMI 20.5
--- NOTE | 2024-11-07 10:22 | EKG12_ITS ---
Test Reason : s/i Blood Pressure : */* mmHG Vent. Rate : 112 BPM Atrial Rate : 112 BPM P-R Int : 132 ms QRS Dur : 82 ms QT Int : 334 ms P-R-T Axes : 42 58 24 degrees QTcB Int : 455 ms Sin[address]cardia Nonspecific ST abnormality Abnormal ECG Confirmed by MOJGAN LAYTON, ONOFRE ([id number]), editor index VENKAT LOREDO ([id number]) on 11/08/2024 11:10:39 AM Referred By: Confirmed By: ONOFRE ULRICH MD
--- NOTE | 2024-11-07 10:23 | EDS_ITS ---
HPI HPI - Psych History of Present Illness Chief Complaint: Mental Health Detail of Chief Complaint: Mental health evaluation Informant: patient, family and EMS Narrative Narrative: Patient presents to the emergency department via EMS from home. Apparently family called EMS because patient's not been taking her medications over the last 4 days. Patient has been very labile at home and just crying all the time. She does have history of anxiety and panic disorder. Patient states she is here because she thinks her potassium is low and complains of generalized weakness. She tells me she has been taking her medications. She denies feeling suicidal. She denies feeling homicidal. She denies auditory or visual hallucinations. She complains of some mild dysuria. She denies fevers or chills or sweats. She has chronic diarrhea because she took Ozempic. [facility] Medical History (Updated 11/07/24 @ 14:[address] Sandra Cordova, ) Former smoker Chronic pain Restless legs Loss of hearing Wears glasses Incontinence Back pain History of pain when walking Gastroparalysis Bipolar disorder Ureteral calculus, right GERD (gastroesophageal reflux disease) Kidney stones Wears dentures Depression Walker as ambulation aid Arthritis DVT (deep venous thrombosis) Blackout Shortness of breath on exertion Fibromyalgia History of edema History of stress test Opioid use disorder Personality disorder, unspecified Major depressive disorder, recurrent, unspecified HLD (hyperlipidemia) IBS (irritable bowel syndrome) Migraine Insomnia Anxiety panic HTN (hypertension) Home Medications ?Medication ?Instructions ?Recorded ?Last Taken ?Type nortriptyline 50 mg capsule 100 mg PO QHS depression 0 10/13/17 11/12/23 History (Pamelor) propranolol 20 mg tablet 20 mg PO BID HIGH BLOOD PRES SURE 05/03/20 11/12/23 History lamotrigine 200 mg tablet 200 mg PO DAILY MOOD 3 11/12/23 History lorazepam 1 mg tablet 1 mg PO BID PRN anxiety 07/1611/12/23 History spironolactone 25 mg tablet 25 mg PO DAILY BLOOD PRESS URE 08/02/22 11/12/23 History tizanidine 4 mg tablet 4 mg PO TID PRN Muscle Pain 08/02/22 11/12/23 History gabapentin 800 mg tablet 800 mg PO TID 10/15/2311/11 History clonidine HCl 0.1 mg tablet 0.2 mg PO QHS BLOOD PRESSU RE 11/13/23 11/12/23 History dicyclomine 10 mg capsule 10 mg PO 4X/DAY PRN ABDOMINA
--- NOTE | 2024-11-07 10:23 | EX.ED.VIS.PS ---
HPI HPI - Psych History of Present Illness Chief Complaint: Mental Health Detail of Chief Complaint: Mental health evaluation Informant: patient, family and EMS Narrative Narrative: Patient presents to the emergency department via EMS from home. Apparently family called EMS because patient's not been taking her medications over the last 4 days. Patient has been very labile at home and just crying all the time. She does have history of anxiety and panic disorder. Patient states she is here because she thinks her potassium is low and complains of generalized weakness. She tells me she has been taking her medications. She denies feeling suicidal. She denies feeling homicidal. She denies auditory or visual hallucinations. She complains of some mild dysuria. She denies fevers or chills or sweats. She has chronic diarrhea because she took Ozempic. [facility] Medical History (Updated 11/07/24 @ 14:[address] Sandra Cordova, ) Former smoker Chronic pain Restless legs Loss of hearing Wears glasses Incontinence Back pain History of pain when walking Gastroparalysis Bipolar disorder Ureteral calculus, right GERD (gastroesophageal reflux disease) Kidney stones Wears dentures Depression Walker as ambulation aid Arthritis DVT (deep venous thrombosis) Blackout Shortness of breath on exertion Fibromyalgia History of edema History of stress test Opioid use disorder Personality disorder, unspecified Major depressive disorder, recurrent, unspecified HLD (hyperlipidemia) IBS (irritable bowel syndrome) Migraine Insomnia Anxiety panic HTN (hypertension) Home Medications ?Medication ?Instructions ?Recorded ?Last Taken ?Type nortriptyline 50 mg capsule 100 mg PO QHS depression 10/13/17 11/12/23 History (Pamelor) propranolol 20 mg tablet 20 mg PO BID HIGH BLOOD PRESSURE 05/03/20 11/12/23 History lamotrigine 200 mg tablet 200 mg PO DAILY MOOD 08/02/22 11/12/23 History lorazepam 1 mg tablet 1 mg PO BID PRN anxiety 08/02/22 11/12/23 History spironolactone 25 mg tablet 25 mg PO DAILY BLOOD PRESSURE 08/02/22 11/12/23 History tizanidine 4 mg tablet 4 mg PO TID PRN Muscle Pain 08/02/22 11/12/23 History gabapentin 800 mg tablet 800 mg PO TID 10/15/23 11/12/23 History clonidine HCl 0.1 mg tablet 0.2 mg PO QHS BLOOD PRESSURE 11/13/23 11/12/23 History dicyclomine 10 mg capsule 10 mg PO 4X/DAY PRN ABDOMINAL 11/13/23 11/12/23 History CRAMPS fluorometholone 0.1 % eye 1 drp ophthalmic (eye) BID 11/13/23 11/12/23 History drops,suspension hyoscyamine sulfate 0.125 mg 0.125 mg sublingual 4X/DAY PRN 11/13/23 11/12/23 History disintegrating tablet abdominal discomfort promethazine 25 mg tablet 12.5 - 25 mg PO DAILY PRN nausea 11/13/23 Unknown History and vomiting bupropion HCl 300 mg 24 hr tablet, 300 mg PO DAILY 04/18/24 Unknown History extended release cariprazine 3 mg capsule (Vraylar) 3 mg PO QHS 04/18/24 Unknown History duloxetine 60 mg capsule,delayed 120 mg PO DAILY 04/18/24 Unknown History release medroxyprogesterone 150 mg/mL 150 mg IM .Q3MO 04/18/24 Unknown History intramuscular syringe meloxicam 7.5 mg tablet 7.5 mg PO BID PRN pain 04/18/24 Unknown History quetiapine 50 mg tablet 50 mg PO QHS 04/18/24 Unknown History ascorbic acid (vitamin C) 1,000 mg 1 g PO DAILY 90 days #90 tabs 04/22/24 Unknown Rx tablet (Vitamin C) calcium 500 mg (as 1 tab PO DAILY 90 days #90 tabs 04/22/24 Unknown Rx carbonate)-vitamin D3 15 mcg (600 unit) tablet (Os-Alexander 500 + D3) ferrous sulfate 325 mg (65 mg 325 mg PO DAILY SUPPLEMENT #30 tabs 08/08/24 Unknown Rx iron) tablet folic acid 1 mg tablet 1 mg PO DAILY SUPPLEMENT #30 tabs 08/08/24 Unknown Rx lactulose 10 gram/15 mL oral 15 ml PO DAILY CONSTIPATION #473 mL 08/08/24 Unknown Rx solution rizatriptan 10 mg tablet 10 mg PO .COMPLEX migraine 08/08/24 Unknown Rx headache #9 tabs topiramate 100 mg tablet 100 mg PO BID #60 tabs 08/08/24 Unknown Rx naproxen 500 mg tablet 500 mg PO BID PRN pain #60 tabs 09/01/24 Unknown Rx acetaminophen 500 mg tablet 500 mg PO Q6H PRN pain 10/11/24 Unknown History (Tylenol Extra Strength) ondansetron 8 mg disintegrating 8 mg PO DAILY PRN nausea and 10/11/24 Unknown History tablet vomiting oxycodone-acetaminophen 10 mg-325 1 tab PO Q6H PRN pain 10/11/24 Unknown History mg tablet (Percocet) Allergy/AdvReac Type Severity Reaction Status Date / Time aspirin AdvReac Mild Nausea Verified 10/11/24 14:52 Family History Father Hypertension Heart disease Brother CAD (coronary artery disease) Myocardial infarction Mother Heart disease Myocardial infarction Surgical History Hx of foot surgery Hx of cystoscopy Hx of cystoscopy History of cholecystectomy History of repair of hiatal hernia History of esophagogastroduodenoscopy (EGD) S/P laparoscopic cholecystectomy Social History household members: children Smoking Status: Current every day smoker tobacco type: e-cigarettes alcohol intake: never substance use type: does not use ROS ROS ED Review of Systems ROS Unobtainable: other Constitutional Constitutional ED: Reports lethargy; Denies chills, fever(s), sweats or weight loss Eyes Eyes: Denies blurry vision, change in vision or diplopia ENT ENT ED: Denies rhinorrhea or sore throat Cardiovascular Cardiovascular: Denies chest pain, orthopnea or racing heartbeat Respiratory/Chest Respiratory/Chest: Denies cough, dyspnea, dyspnea on exertion, orthopnea or sputum Gastrointestinal Gastrointestinal: Denies abdominal pain, diarrhea, nausea or vomiting Genitourinary Genitourinary ED: Reports dysuria; Denies hematuria or urinary frequency Musculoskeletal Musculoskeletal: Denies arthralgias, back pain, myalgias or neck pain Integumentary Denies abscess, Abrasions or rash Neurologic Neurologic: Denies headache(s) or weakness Psychiatric Psychiatric: Reports depression and other Details: Labile mood at home and crying frequently ; Denies anxiety or suicidal thoughts Endocrine Endocrinology: Denies polydipsia, polyphagia or polyuria Hematologic/Lymphatic Hematologic/Lymphatic: Denies easy bleeding, easy bruising or lymphadenopathy Allergic/Immunologic Allergic/Immunologic ED: Denies mouth swelling, tongue swelling or urticaria EXAM Physical Exam Const Vital Signs: 11/07/24 09:47 Temperature 97.9 F Temperature Source Temporal Pulse Rate 110 H Respiratory Rate 18 Blood Pressure 102/71 Blood Pressure Mean 81 Pulse Ox 98 Oxygen Delivery Method Room Air Positive well nourished and well developed General Appearance ED: well developed and NAD HEENT Reports TM's clear HEENT Narrative: Dry mucous membranes normocephalic and atraumatic; Negative for trauma or tenderness Tympanic Membrane ED: Yes TM's clear Eyes PERRL and EOMs intact bilaterally General Eye ED: Negative for pale conjunctiva or scleral icterus Neck no lymphadenopathy, supple and no JVD General: Negative for tenderness Chest Wall inspection of chest normal and palpation of chest normal Chest: Negative for tenderness Resp normal respiratory effort and clear to auscultation bilaterally Effort and Inspection: Negative for respiratory distress or pain with movement Auscultation: Negative for rhonchi, wheezes or diminished lung sounds Cardio regular rate, regular rhythm, S1 normal heart sound, S2 normal heart sound and no murmurs Peripheral Pulses: pulses 2+ throughout GI normal to inspection, nondistended, normoactive bowel sounds, soft to palpation, non-tender, non-distended and no masses Back/Spine no CVA tenderness and no thoracic nor lumbar tenderness Extremity normal to inspection General Extremety ED: Negative for edema General Extremity: Negative for edema Neuro oriented x3, CN's II-XII intact bilaterally, no sensory deficits noted and gait normal Sensorium / Orientation: awake, alert, oriented to person, oriented to place and oriented to time Motor Exam: strength 5/5 throughout and strength abnormal Psych mental status grossly normal Skin no rashes or lesions noted and no wounds MDM MDM MDM Narrative Medical decision making narrative: Patient seen by psychiatric social worker supervisor who knows patient. She apparently has been hallucinating and responding to internal stimuli. Noncompliant with meds. It was recommended that patient be referred to psychiatric facility for definitive care. EKG obtained arrival showed a sinus tachycardia with ventricular rate of 112 bpm with some nonspecific ST changes. CBC with differential obtained showed an elevated white count of 14.4 with hemoglobin 12.6 and platelet count of 303. Chemistries showed a sodium of 140 with potassium 2.8. BUN was 31 and creatinine 3.57. AST was 21, ALT 120, alk phos 148. hCG was negative. Alcohol less than 10. Toxicology screen and urinalysis ordered and pending. Patient will be seen by hospitalist to evaluate for admission for medical clearance as she has a new acute kidney injury that will need to be addressed before transfer to psychiatric facility. Lab Data Attestation: I reviewed the patient's lab results. Labs: Laboratory Results - last 24 hr 11/07/24 10:22 WBC 14.4 H RBC 4.35 Hgb 12.8 Hct 39.2 MCV 90.1 D MCH 29.4 MCHC 32.7 RDW Std Deviation 47.8 H RDW Coeff of Raquel 14.6 Plt Count 303 MPV 11.2 Immature Gran % (Auto) 0.400 Neut % (Auto) 83.0 H Lymph % (Auto) 6.3 L [place] % (Auto) 9.3 Eos % (Auto) 0.4 Baso % (Auto) 0.6 Absolute Neuts (auto) 11.9 H Absolute Lymphs (auto) 0.91 Nucleated RBC % 0 Differential Comment SCANNED Sodium 140 Potassium 2.8 L Chloride 109 H Carbon Dioxide 13.5 L Anion Gap 17 H BUN 31 H Creatinine 3.57 H Estim Creat Clear Calc 20.84 L Est GFR (MDRD) Non-Af 16 L BUN/Creatinine Ratio 8.6 L Glucose 97 Calcium 9.3 Total Bilirubin 0.33 AST 21 ALT 120 H Alkaline Phosphatase 148 H Total Protein 7.4 Albumin 3.7 Globulin 3.7 Albumin/Globulin Ratio 1.0 Serum , Qual NEGATIVE Ethyl Alcohol < 10.1 EKG Initial EKG: Attestation: I personally reviewed and interpreted this EKG as follows: Comments: Sinus tachycardia with rate of 112 bpm with no acute ST segment change Discharge Plan Dx/Rx/DC Orders Clinical Impression: CHARLES (acute kidney injury), Acute hypokalemia, Psychosis, Depression Disposition Disposition: Acute Care Hospital [facility]
[2024-11-07 10:43] LABS: Absolute Lymphocyte Count 0.91 X10^3/uL (0.83-4.51); Absolute Neutrophil Count 11.9 X10^3/uL (2.0-7.7); Basophil# 0.09 X10^3/uL; Basophil% 0.6 % (0-1); Eosinophil# 0.06 X10^3/uL; Eosinophils% 0.4 % (0-5); Hematocrit 39.2 % (37-47); Hemoglobin 12.8 g/dL (12.0-15.0); Lymphocyte # 0.91 X10^3/ul (0.83-4.51); Lymphocyte % 6.3 % (19-41); Mean Corp Hgb Conc 32.7 g/dL (32-36); Mean Corpuscular Hgb 29.4 pg (27.0-32.0); Mean Corpuscular Volume 90.1 fL (81-99); Mean Platelet Vol. 11.2 fl (6.2-12.0); Monocyte# 1.34 X10^3/uL; Monocyte% 9.3 % (0-10); NRBC Flagged by Analyzer 0 % (0-5); POSITIVE MORPHOLOGY YES; Platelet Count 303 K/mm3 (150-450); RBC Distribution Width CV 14.6 % (11.6-14.6); RBC Distribution Width SD 47.8 fl (35.1-43.9); Red Blood Count 4.35 M/mm3 (4.2-5.4); White Blood Count 14.4 K/mm3 (4.4-11.0)
[2024-11-07 10:44] LABS: Differential Indicated SCAN CRITERIA MET
[2024-11-07 11:05] LABS: Internal QC Validated? YES +Cl - CLEAR BKGD; Pregnancy, Serum, hCG Quali. NEGATIVE Negative
[2024-11-07 11:08] LABS: Differential Comment SCANNED
[2024-11-07 11:47] LABS: AST(SGOT) 21 U/L (<=31); Alanine Aminotransfer ALT/SGPT 120 U/L (<=34); Albumin, Serum 3.7 g/dL (3.5-5.0); Alkaline Phosphatase 148 U/L (35-104); Anion Gap 17 (5-15); BUN 31 mg/dL (4-19); BUN/Creat Ratio 8.6 RATIO (10-20); Calcium,Total 9.3 mg/dL (7.6-11.0); Carbon Dioxide 13.5 mmol/L (21.0-32.0); Chloride 109 mmol/L (98-108); Creatinine, Serum 3.57 mg/dL (0.70-1.20); EST Glomerular Filtration Rate 16 (>60); Estimated Creatinine Clearance 20.84 ml/min (50-250); Globulin 3.7 g/dL (2.2-4.2); Glucose 97 mg/dL (70-99); Potassium 2.8 mmol/L (3.3-5.1); Protein, Total 7.4 g/dL (5.9-8.4); Sodium Level 140 mmol/L (133-145); Total Bilirubin 0.33 mg/dL (0.00-1.30)
[2024-11-07 11:53] LABS: Alcohol, Blood (Medical)-Serum < 10.1 mg/dL (<=10.0)
--- NOTE | 2024-11-07 11:55 | ED.RN ---
pt continually wandering around and attempting to leave. pt talked to by police and hospital security. pt wanders into another patient room. dr bowman notified and medications to be ordered
--- NOTE | 2024-11-07 11:58 | CM.ED ---
? Social Work Psychiatric Assessment Reason for consult: Mental Health Informant(s): ?patient, medical record Chief Complaint: Patient presented to the ED from home via EMS due to family calling for patient to be brought to hospital.? According to EMS reports, family states that patient has been off her medications for several days. Patient started crying within a minute of SW entering room.? When asked what was upsetting to patient, patient stated her dad had been put on Hospice and then she did not know what happened to him.? When asked if her father has passed, patient did acknowledge that he in May.? Patient then mumbled several statements to SW that were unintelligible, facing the floor with her eyes half closed.?? When asked a direct question, patient would answer part of the question and then start speaking on a different topic.? Patient did deny auditory or visual hallucinations but presented as experiencing both. Patient was stopping sentences in the middle of speaking to look off to the side for periods of time.? Patient also was calling for a dog on the floor and holding out her hand as if feeding the animal.? Patient would speak when no question was asked, making a statement to, what appeared to be, a conversation she heard in her mind.? SW was unable to complete the C-SSRS but patient did deny wanting to harm self, stating ?if they want to finish me off, let them do it.? Patient was unable to provide information about medications or counseling past acknowledging that she has seen a counselor at some point and stated she was on ?28 medications a day?.? Marital/Social History: ?Patient is single Living Situation: ?Patient lives on her own Support/Resources: friend History: None Education and Employment History: ?patient is not currently working Mental Health Treatment/History: ?patient states she is seeing a counselor but was unable to provide any additional information.? According to medical record, patient has been diagnosed with bipolar disorder, depression, personality disorder, major depressive disorder, anxiety and panic disorder.? ?Patient has been prescribed Pamelor,? Lamictal, Ativan,? Cymbalta,? and Seroquel.? According to family, patient has been non compliant with medication for several days.? Triggers/Stressors to mental health: ?Patients father in May Coping Skills: ?patient unable to answer questions History of Abuse (physical/sexual/verbal/emotional): unable to answer questions Substance Abuse Current/Historical: ?patient denies Risk to Self/Others: ? Suicidal (thought/plan/intent/attempt): ?denies ? Access to Lethal Means: ?n/a ? Homicidal (thought/plan/intent/attempt): denies ? History of Violence (self/others/objects): ? Mental Status Exam: ??? Orientation:?patient was able to identify the year, incorrect on the month, knew she was in a hospital, unable to identify the name ??? Memory: ?unable to access Appearance/General Behavior: ?slumped, tearful Mood/Affect: ?depressed, labile, bizarre Communication Pattern: ?rambling, difficult to stay on topic, tangential, incoherent at times Thought Process: ?auditory and visual hallucinations, fragmented General Intellectual Functioning:?? average Judgment: poor Insight: ?poor Plan :? ?Patient is currently off her prescribed medication regimen, is experiencing auditory and visual hallucinations and sleep disturbance.? Patient would benefit from inpatient psychiatric hospitalization to decrease her psychosis and reestablish her medications.? Physician consulted and in agreement with same.? Debra Mustafa, FRUIT GRADER, DINING ROOM CAPTAIN
[2024-11-07] MEDS: Lorazepam 2 MG/ML WCH Syringe 1 MG IM (12:06)
[2024-11-07] MEDS: Ziprasidone IM 20 MG/ML VIAL IM (12:06)
--- NOTE | 2024-11-07 12:09 | ED.RN ---
la Cooper called in for an update after being notified by kallie SALDIVAR that pt was here per pts request. son updated on pt and pts care and possible admission. son states understanding and will call back for an update. Kenneth Diaz- [phone]
--- NOTE | 2024-11-07 13:52 | ED.RN ---
WENT IN TO CHECK ABOUT URINE SPECIMEN. SAW BLOOD ON THE SHEETS AHERE THE PT WAS CURLED UP WITH NO DISTRESS. iv TEGADERM WAS PEELED BACK AND ANGIOCATH WAS NO IN ARM. REMOVED WITHOUT DIFFICULTY AND PLACED DRESSING ON SITE
[2024-11-07] MEDS: Potassium Chloride 10mEq/100mL 10 MEQ/100 ML IV.SOLN. 100 MEQ IV BOLUS ×5 (13:58→23:13)
[2024-11-07] MEDS: 0.9% Normal Saline (1000mL) 1,000 ML 999 ML IV (14:02)
[2024-11-07 14:25] VITALS: BP 108/83; PULSE 101; RESP 18; O2SAT 97
--- NOTE | 2024-11-07 14:32 | ED.RN ---
Pt ripped out first IV that was initiated. K+ infusion delayed to initiate another IV. Pt also refusing to give a urine sample.
--- NOTE | 2024-11-07 14:37 | PCM.HP.STD ---
HPI - General General Date of Admission: 11/07/24 Date of Service: 11/07/24 Chief Complaint: Altered mental status, weakness HPI Narrative KARLA LANCE, is a 44 F hx of anxiety and depression, migraines, hypertension who presented to [facility] ED 11/07/2024 for concerns for generalized weakness, low potassium and family concerns that she has not been taking her medicine for the past 4 days with labile mood at home and frequent crying however patient endorsed that she is taking her medications. She does report some mild dysuria and chronic diarrhea after previously taking Ozempic. In the ED patient afebrile, heart rate 110 with blood pressure 102/71, respiratory rate 18 and pulse ox 98% on room air. CBC revealed white blood cell count 14.4 and CMP revealed creatinine of 3.57 up from 1.15 4 days ago, potassium of 2.8 with a bicarb of 13.5 and anion gap of 17. UA and UDS still pending however given patient will need to be admitted hospitalist contacted for admitted. Patient evaluated at bedside, would wake up but would quickly fall back asleep, she did receive 20 of ziprasidone IM and 1 of lorazepam in the ED. Denied any pain, had difficulty answering any other questions due to falling asleep quickly but was protecting her airway. Unable to obtain any further history. On chart of note patient does have pink slip which notes auditory and visual hallucinations, talking to unseen persons and animals and being tangential and not responding appropriately. [facility] Medical History (Updated 11/07/24 @ 14:[address] Sandra Cordova, DO) Anxiety Arthritis Back pain Bipolar disorder Blackout Chronic pain Depression DVT (deep venous thrombosis) Fibromyalgia Former smoker Gastroparalysis GERD (gastroesophageal reflux disease) History of edema History of pain when walking History of stress test HLD (hyperlipidemia) HTN (hypertension) IBS (irritable bowel syndrome) Incontinence Insomnia Kidney stones Loss of hearing Major depressive disorder, recurrent, unspecified Migraine Opioid use disorder panic Personality disorder, unspecified Restless legs Shortness of breath on exertion Ureteral calculus, right Walker as ambulation aid Wears dentures Wears glasses Home Medications ?Medication ?Instructions ?Recorded ?Last Taken ?Type nortriptyline 50 mg capsule 100 mg PO QHS depression 10/13/17 11/12/23 History (Pamelor) propranolol 20 mg tablet 20 mg PO BID HIGH BLOOD PRESSURE 05/03/20 11/12/23 History lamotrigine 200 mg tablet 200 mg PO DAILY MOOD 08/02/22 11/12/23 History lorazepam 1 mg tablet 1 mg PO BID PRN anxiety 08/02/22 11/12/23 History spironolactone 25 mg tablet 25 mg PO DAILY BLOOD PRESSURE 08/02/22 11/12/23 History tizanidine 4 mg tablet 4 mg PO TID PRN Muscle Pain 08/02/22 11/12/23 History gabapentin 800 mg tablet 800 mg PO TID 10/15/23 11/12/23 History clonidine HCl 0.1 mg tablet 0.2 mg PO QHS BLOOD PRESSURE 11/13/23 11/12/23 History dicyclomine 10 mg capsule 10 mg PO 4X/DAY PRN ABDOMINAL 11/13/23 11/12/23 History CRAMPS fluorometholone 0.1 % eye 1 drp ophthalmic (eye) BID 11/13/23 11/12/23 History drops,suspension hyoscyamine sulfate 0.125 mg 0.125 mg sublingual 4X/DAY PRN 11/13/23 11/12/23 History disintegrating tablet abdominal discomfort promethazine 25 mg tablet 12.5 - 25 mg PO DAILY PRN nausea 11/13/23 Unknown History and vomiting bupropion HCl 300 mg 24 hr tablet, 300 mg PO DAILY 04/18/24 Unknown History extended release cariprazine 3 mg capsule (Vraylar) 3 mg PO QHS 04/18/24 Unknown History duloxetine 60 mg capsule,delayed 120 mg PO DAILY 04/18/24 Unknown History release medroxyprogesterone 150 mg/mL 150 mg IM .Q3MO 04/18/24 Unknown History intramuscular syringe meloxicam 7.5 mg tablet 7.5 mg PO BID PRN pain 04/18/24 Unknown History quetiapine 50 mg tablet 50 mg PO QHS 04/18/24 Unknown History ascorbic acid (vitamin C) 1,000 mg 1 g PO DAILY 90 days #90 tabs 04/22/24 Unknown Rx tablet (Vitamin C) calcium 500 mg (as 1 tab PO DAILY 90 days #90 tabs 04/22/24 Unknown Rx carbonate)-vitamin D3 15 mcg (600 unit) tablet (Os-Alexander 500 + D3) ferrous sulfate 325 mg (65 mg 325 mg PO DAILY SUPPLEMENT #30 tabs 08/08/24 Unknown Rx iron) tablet folic acid 1 mg tablet 1 mg PO DAILY SUPPLEMENT #30 tabs 08/08/24 Unknown Rx lactulose 10 gram/15 mL oral 15 ml PO DAILY CONSTIPATION #473 mL 08/08/24 Unknown Rx solution rizatriptan 10 mg tablet 10 mg PO .COMPLEX migraine 08/08/24 Unknown Rx headache #9 tabs topiramate 100 mg tablet 100 mg PO BID #60 tabs 08/08/24 Unknown Rx naproxen 500 mg tablet 500 mg PO BID PRN pain #60 tabs 09/01/24 Unknown Rx acetaminophen 500 mg tablet 500 mg PO Q6H PRN pain 10/11/24 Unknown History (Tylenol Extra Strength) ondansetron 8 mg disintegrating 8 mg PO DAILY PRN nausea and 10/11/24 Unknown History tablet vomiting oxycodone-acetaminophen 10 mg-325 1 tab PO Q6H PRN pain 10/11/24 Unknown History mg tablet (Percocet) Allergy/AdvReac Type Severity Reaction Status Date / Time aspirin AdvReac Mild Nausea Verified 10/11/24 14:52 Family History Father Hypertension Heart disease Brother CAD (coronary artery disease) Myocardial infarction Mother Heart disease Myocardial infarction Surgical History History of cholecystectomy History of esophagogastroduodenoscopy (EGD) History of repair of hiatal hernia Hx of cystoscopy Hx of cystoscopy Hx of foot surgery S/P laparoscopic cholecystectomy Social History household members: children Smoking Status: Current every day smoker tobacco type: e-cigarettes alcohol intake: never substance use type: does not use ROS ROS Narrative Unable to obtain ROS secondary to mental status Vital Signs Vital Signs Vital Signs: 11/07/24 09:47 11/07/24 14:25 Temperature 97.9 F Temperature Source Temporal Pulse Rate 110 H 101 H Respiratory Rate 18 18 Blood Pressure 102/71 108/83 H Blood Pressure Mean 81 91 Pulse Ox 98 97 Oxygen Delivery Method Room Air Room Air Weight Weight: 64.954 kg Body Mass Index (BMI) 20.5 Physical Exam Narrative General: Awakens to stimulus but quickly falls back asleep HEENT: Atraumatic Eyes: Will open eyes to stimulus but quickly closes them and falls back asleep Neck: Supple Respiratory: No overt wheezes or rhonchi, normal respiratory effort Cardiovascular: Low-grade sinus tachycardia GI: Soft, nondistended, did not appear painful when palpating Extremities: No edema Musculoskeletal: Moving all extremities Neuro: No overt focal neurological deficits however patient unable to participate in exam Skin: Some possible PICC bee Psych: Uncooperative but in part seems to be due to mental status Results Lab / Micro Data 11/07/24 10:22 11/07/24 10:22 Labs: Laboratory Results - last 24 hr 11/07/24 10:22: WBC 14.4 H, RBC 4.35, Hgb 12.8, Hct 39.2, MCV 90.1 D, MCH 29.4, MCHC 32.7, RDW Std Deviation 47.8 H, RDW Coeff of Raquel 14.6, Plt Count 303, MPV 11.2, Immature Gran % (Auto) 0.400, Neut % (Auto) 83.0 H, Lymph % (Auto) 6.3 L, [place] % (Auto) 9.3, Eos % (Auto) 0.4, Baso % (Auto) 0.6, Absolute Neuts (auto) 11.9 H, Absolute Lymphs (auto) 0.91, Nucleated RBC % 0, Differential Comment SCANNED, Sodium 140, Potassium 2.8 L, Chloride 109 H, Carbon Dioxide 13.5 L, Anion Gap 17 H, BUN 31 H, Creatinine 3.57 H, Estim Creat Clear Calc 20.84 L, Est GFR (MDRD) Non-Af 16 L, BUN/Creatinine Ratio 8.6 L, Glucose 97, Calcium 9.3, Total Bilirubin 0.33, AST 21, ALT 120 H, Alkaline Phosphatase 148 H, Total Protein 7.4, Albumin 3.7, Globulin 3.7, Albumin/Globulin Ratio 1.0, Serum , Qual NEGATIVE, Ethyl Alcohol < 10.1 Assessment & Plan Assessment/Plan (1) CHARLES (acute kidney injury): PLAN: Plan # Acute renal failure -Patient's creatinine 4 days ago was 1.15, today was 3.57 and patient found to have elevated gap and low bicarb -Kidney bladder ultrasound ordered - UA and UDS pending - IVF ordered - Will check urine studies -Low threshold for nephrology consult if no improvement -Hold nephrotoxic agents - Monitor I's and O's # Hypokalemia -Will replace and repeat to verify appropriate response # History of anxiety/depression with acute mental status changes -Per family patient not taking medications for 4 days but patient denies this to ED physician however patient has pink slip on chart reporting auditory and visual hallucinations, talking unseen persons and animals and being tangential and not responding appropriately -Will need to verify home medications and resume home medications as applicable, but would likely need to renally adjust -Plan right now would be for crisis evaluation after patient medically stable given the concerns on presentation - UDS ordered and pending #DVT ppx: Heparin subcu Liudmila Jerez MD Charges/Coding Visit Charges Inpatient E&M: 51977 Init Hosp L2
[2024-11-07 14:57] LABS: Bacteria 0 SEEN /hpf (None Seen); Mucous, Urine 0 SEEN /hpf (<or=2+)
[2024-11-07 15:00] VITALS: BP 95/56; PULSE 103
--- NOTE | 2024-11-07 15:06 | US_ITS ---
PROCEDURE: KIDNEY AND BLADDER 11/07/2024 REASON FOR EXAM: ACUTE RENAL FAILURE TECHNIQUE: KIDNEY AND BLADDER COMPARISON: None. FINDINGS: Kidneys: Multiple bilateral renal calculi are seen, the largest in the right measured at 10 x 11 mm and the largest on the left measured at 13 x 13 mm. Kidneys otherwise show no abnormality. Tina: No evidence of hydronephrosis is seen on either side Cysts or Masses: No renal mass or significant cyst is seen. Urinary bladder: Incompletely filled urinary bladder is seen, with estimated volume of 64 mL. Ureteral jets are not visualized. No abnormality is seen upon limited evaluation. RIGHT Kidney Size: 11.6 x 5.6 x 5.4 cm Volume: 182 mL Cortical Thickness (if discernible): 15 mm (>6mm is normal) LEFT Kidney Size: 10.7 x 5.2 x 4.5 cm Volume: 128 mL Cortical Thickness (if discernible): 17 mm (>6mm is normal) US/Kidney and Bladder IMPRESSION: 1. Multiple nonobstructive bilateral renal calculi. 2. No evidence of hydronephrosis. Reading Location: [place] [address]
[2024-11-07 15:07] LABS: Color, Urine Yellow (Yellow); Glucose, Dipstick Normal (Normal); Ketone-Dipstick 5 mg/dl (Negative); Leukocyte Esterase-Dipstick 500 /ul (Negative); Nitrite-Dipstick Negative (Negative); Occult Blood-Urine 150 /ul (Negative); Protein-Dipstick 100 mg/dl (Negative); Specific Gravity, Urine 1.015 (1.002-1.030); Urine Clarity Cloudy (Clear); Urine Urobilinogen Normal (Normal)
[2024-11-07 15:11] VITALS: BP 95/56; PULSE 89; RESP 16; TEMP 36.6; O2SAT 97
[2024-11-07 15:28] LABS: Urine Bilirubin Dipstick 1 mg/dL (Negative)
[2024-11-07 15:34] LABS: Amphetamine Urine NEGATIVE (<1000 ng/mL); Barbiturate Urine NEGATIVE (< 200 ng/mL); Benzodiazepine Urine PRESUMPTIVE POSITIVE (< 200 ng/mL); Buprenorphine Urine NEGATIVE (< 200 ng/mL); Cocaine Urine NEGATIVE (< 300 ng/mL); Fentanyl, Urine NEGATIVE; Methadone Urine NEGATIVE (< 300 ng/mL); Opiates Urine NEGATIVE (< 300 ng/mL); Oxycodone, Urine PRESUMPTIVE POSITIVE (< 100 ng/mL); PCP Urine NEGATIVE (< 25 ng/mL); THC Urine PRESUMPTIVE POSITIVE (< 50 ng/mL)
[2024-11-07 15:46] LABS: White Blood Cells >100 SEEN /hpf (0-5)
[2024-11-07 15:47] LABS: Red Blood Cells-Urine 5-10 SEEN /hpf (0-5)
[2024-11-07 15:48] LABS: Squamous Epithelial Cells - UA 0-5 SEEN /hpf (5-10)
[2024-11-07 15:50] LABS: Amorphous Sediment 2+ URATE; Coarse Granular Cast 10-25 SEEN /lpf (0-5 /lpf)
[2024-11-07 15:55] VITALS: BMI 21.9
[2024-11-07 16:04] VITALS: BP 119/89; PULSE 100; RESP 18; TEMP 37.1; O2SAT 98
[2024-11-07 16:20] LABS: Magnesium 2.3 mg/dL (1.5-2.2)
[2024-11-07] MEDS: 0.45% Normal Saline 1,000 ML 150 ML IV (18:03)
--- NOTE | 2024-11-07 19:20 | PCM.HOSP.N ---
Hospitalist Note Have been unable to obtain med list, based on external RX pt should be on seroquel qhs (unclear 50 or 100mg?), bupropion 150mg, notriptylline 100qhs, lamictal 200mg, topamax 100 BID. Will resume buproprion, seroquel 50mg qhs, lamictal 50mg (pt been off for 4 days, or longer, will need to restart titration), can add back medications pending mental status, creatinine, and updated med list
[2024-11-07 20:41] LABS: Anion Gap 13 (5-15); BUN 30 mg/dL (4-19); BUN/Creat Ratio 9.5 RATIO (10-20); Calcium,Total 8.1 mg/dL (7.6-11.0); Chloride 112 mmol/L (98-108); Creatinine, Serum 3.09 mg/dL (0.70-1.20); EST Glomerular Filtration Rate 19 (>60); Estimated Creatinine Clearance 25.39 ml/min (50-250); Glucose 91 mg/dL (70-99); Potassium 3.1 mmol/L (3.3-5.1); Sodium Level 138 mmol/L (133-145)
[2024-11-07 21:26] VITALS: BP 113/87; PULSE 100; RESP 16; TEMP 36.7; O2SAT 99
[2024-11-07] MEDS: QUEtiapine 25 MG Tablet 50 MG PO (21:33)
[2024-11-07] MEDS: MELATONIN 10 MG TABLET PO (21:34)
[2024-11-07] MEDS: Heparin Injection (Vial) 5,000 UNIT/ML VIAL 5000 UNIT SC (21:34)
[2024-11-07] MEDS: 0.9% Normal Saline (1000mL) 1,000 ML 150 ML IV (21:36)
[2024-11-08 04:15] VITALS: BP 124/83; PULSE 94; RESP 16; TEMP 36.9; O2SAT 100
[2024-11-08] MEDS: 0.9% Normal Saline (1000mL) 1,000 ML 150 ML IV ×2 (04:20→11:03)
[2024-11-08] MEDS: Acetaminophen 325 MG Tablet 650 MG PO (04:26)
[2024-11-08 05:13] LABS: Absolute Lymphocyte Count 0.87 X10^3/uL (0.83-4.51); Absolute Neutrophil Count 8.7 X10^3/uL (2.0-7.7); Basophil# 0.05 X10^3/uL; Basophil% 0.5 % (0-1); Eosinophil# 0.07 X10^3/uL; Eosinophils% 0.7 % (0-5); Hematocrit 34.1 % (37-47); Hemoglobin 11.2 g/dL (12.0-15.0); Lymphocyte # 0.87 X10^3/ul (0.83-4.51); Lymphocyte % 8.1 % (19-41); Mean Corp Hgb Conc 32.8 g/dL (32-36); Mean Corpuscular Volume 91.4 fL (81-99); Mean Platelet Vol. 10.6 fl (6.2-12.0); Monocyte# 0.91 X10^3/uL; Monocyte% 8.5 % (0-10); NRBC Flagged by Analyzer 0 % (0-5); Neutrophil # 8.68 X10^3/uL (2.7-7.7); Neutrophil % 81.3 % (47-70); Platelet Count 289 K/mm3 (150-450); RBC Distribution Width CV 14.8 % (11.6-14.6); RBC Distribution Width SD 49.4 fl (35.1-43.9); Red Blood Count 3.73 M/mm3 (4.2-5.4); White Blood Count 10.7 K/mm3 (4.4-11.0)
[2024-11-08 05:40] LABS: ALB/GLOB Ratio 0.9 RATIO (0.9-2.4); AST(SGOT) 20 U/L (<=31); Alanine Aminotransfer ALT/SGPT 82 U/L (<=34); Albumin, Serum 2.9 g/dL (3.5-5.0); Alkaline Phosphatase 121 U/L (35-104); Anion Gap 11 (5-15); BUN 27 mg/dL (4-19); BUN/Creat Ratio 10.7 RATIO (10-20); Calcium,Total 8.3 mg/dL (7.6-11.0); Carbon Dioxide 13.7 mmol/L (21.0-32.0); Chloride 116 mmol/L (98-108); Creatinine, Serum 2.47 mg/dL (0.70-1.20); EST Glomerular Filtration Rate 24 (>60); Estimated Creatinine Clearance 31.76 ml/min (50-250); Globulin 3.2 g/dL (2.2-4.2); Glucose 96 mg/dL (70-99); Potassium 3.1 mmol/L (3.3-5.1); Protein, Total 6.1 g/dL (5.9-8.4); Sodium Level 141 mmol/L (133-145); Total Bilirubin 0.35 mg/dL (0.00-1.30)
[2024-11-08 06:06] LABS: Protein, Urine (Random) 46.3 mg/dL (0.0-12.0); Protein:Creat Ratio 767 mg/g CRE (0-200); Urea Nitrogen, Urine 199 mg/dL (NO RANGE EST.); Urine Chloride 53 mmol/L (Not Establ.); Urine Potassium 9.9 mmol/L (Not Establ.); Urine Sodium 50 mmol/L (Not Establ.)
[2024-11-08 07:07] LABS: Osmolality, Urine 257 mOsm/KG
[2024-11-08] MEDS: Heparin Injection (Vial) 5,000 UNIT/ML VIAL 5000 UNIT SC (09:36)
[2024-11-08] MEDS: Potassium Chloride Oral Tablet 20 MEQ 40 MEQ PO (09:36)
[2024-11-08] MEDS: lamoTRIgine 100 MG Tablet 50 MG PO (09:36)
[2024-11-08] MEDS: buPROPion (XL) 150 MG TABLET.XL PO (09:37)
[2024-11-08 09:45] VITALS: BP 126/76; PULSE 87; RESP 17; TEMP 36.6; O2SAT 97
--- NOTE | 2024-11-08 11:41 | CASEMGMT ---
Physician requested patient's med list. SW called [facility] and spoke with crisis team. SW explained that patient will need seen by crisis, but she is not medically cleared yet. SW requested a med list be faxed. Yolis CORLEY
[2024-11-08] MEDS: lamoTRIgine 100 MG Tablet 200 MG PO (12:42)
[2024-11-08] MEDS: Gabapentin 800 MG Tablet PO ×2 (12:42→17:08)
[2024-11-08] MEDS: QUEtiapine 25 MG Tablet 50 MG PO (12:44)
[2024-11-08] MEDS: Nalbuphine 10 MG/ML Ampul IV (12:46)
[2024-11-08] MEDS: 0.9% Saline Lock 10 ML Syringe IV (12:49)
[2024-11-08 14:20] VITALS: BP 122/70; PULSE 80; RESP 16; TEMP 36.8; O2SAT 97
--- NOTE | 2024-11-08 15:43 | NURSING ---
Patient has been moderately agitated all shift, requiring a sitter at the beginning of the shift. Patient complaining of nubane not being strong enough. Informed patient that nubane is not due for another 4-5 hours.
[2024-11-08 15:59] LABS: Anion Gap 13 (5-15); BUN 22 mg/dL (4-19); BUN/Creat Ratio 12.9 RATIO (10-20); Calcium,Total 8.8 mg/dL (7.6-11.0); Carbon Dioxide 11.4 mmol/L (21.0-32.0); Chloride 118 mmol/L (98-108); Creatinine, Serum 1.69 mg/dL (0.70-1.20); EST Glomerular Filtration Rate 38 (>60); Estimated Creatinine Clearance 46.42 ml/min (50-250); Glucose 107 mg/dL (70-99); Potassium 3.2 mmol/L (3.3-5.1); Sodium Level 142 mmol/L (133-145)
--- NOTE | 2024-11-08 16:11 | NURSING ---
Patient inquiring about stronger pain meds. Message sent to MD about results of BMP and pain requests
--- NOTE | 2024-11-08 17:00 | DCINST_ITS ---
Discharge Instructions Diet Discharge Diet: No restrictions DC O2, CPAP, BIPAP needs Home O2 Discharge instructions: No Dressing / Incision Discharge Activity: Return to Normal Activity Weight Bearing Status: Full weight bearing Follow Up Care Test Results: Test results from this visit will be discussed in further detail at your follow- up appointment, if applicable. Discharge Plan Admission Admit Date/Time: 11/07/24 14:37 Primary Reason for Your Visit: Confusion, delirium Attending Provider: Jeyson Buckley Primary Care Provider: Tom Giraldo Consulting Providers: Liudmila Jerez Instructions Additional Instructions / Restrictions: Resume all home medications except for spironolactone and meloxicam Discharge Orders/Prescriptions Prescriptions: Continued gabapentin 800 mg tablet 800 mg PO TID ferrous sulfate 325 mg (65 mg iron) tablet 325 mg PO DAILY Qty: 30 7RF folic acid 1 mg tablet 1 mg PO DAILY Qty: 30 7RF lactulose 10 gram/15 mL solution 15 ml PO DAILY Qty: 473 7RF rizatriptan 10 mg tablet 10 mg PO .COMPLEX Qty: 9 7RF Rx Instructions: Take 1 tablet orally every two hours as needed for headache up to three tablets per day topiramate 100 mg tablet 100 mg PO BID Qty: 60 7RF naproxen 500 mg tablet 500 mg PO BID PRN (Reason: pain) Qty: 60 4RF nortriptyline [Pamelor] 50 MG capsule 100 mg PO QHS propranolol 20 MG tablet 20 mg PO BID lamotrigine 200 mg tablet 200 mg PO DAILY tizanidine 4 mg tablet 4 mg PO TID PRN (Reason: Muscle Pain) lorazepam 1 mg tablet 1 mg PO BID PRN (Reason: anxiety) clonidine HCl 0.1 mg tablet 0.2 mg PO QHS dicyclomine 10 mg capsule 10 mg PO 4X/DAY PRN (Reason: ABDOMINAL CRAMPS) hyoscyamine sulfate 0.125 mg tablet,disintegrating 0.125 mg sublingual 4X/DAY PRN (Reason: abdominal discomfort) promethazine 25 mg tablet 12.5 - 25 mg PO DAILY PRN (Reason: nausea and vomiting) fluorometholone 0.1 % drops,suspension 1 drp ophthalmic (eye) BID bupropion HCl 300 mg tablet extended release 24 hr 300 mg PO DAILY medroxyprogesterone 150 mg/mL syringe 150 mg IM .Q3MO quetiapine 50 mg tablet 50 mg PO QHS Vraylar 3 mg capsule 3 mg PO QHS duloxetine 60 mg capsule,delayed release(DR/EC) 120 mg PO DAILY calcium carbonate-vitamin D3 [Os-Alexander 500 + D3] 500 mg-15 mcg (600 unit) tablet 1 tab PO DAILY 90 Days Qty: 90 0RF ascorbic acid (vitamin C) [Vitamin C] 1,000 mg tablet 1 g PO DAILY 90 Days Qty: 90 0RF acetaminophen [Tylenol Extra Strength] 500 mg tablet 500 mg PO Q6H PRN (Reason: pain) ondansetron 8 mg tablet,disintegrating 8 mg PO DAILY PRN (Reason: nausea and vomiting) oxycodone-acetaminophen [Percocet] 10-325 mg tablet 1 tab PO Q6H PRN (Reason: pain) Discontinued spironolactone 25 mg tablet 25 mg PO DAILY meloxicam 7.5 mg tablet 7.5 mg PO BID PRN (Reason: pain) Referrals / Follow Up: Tom Giraldo MD [Primary Care Provider] - Within 2 Weeks Disposition Disposition (needs filled in before D/C Order can be placed): Home, Self Care
--- NOTE | 2024-11-08 17:03 | PCM.DC.SUM ---
Providers Date of Admission: 11/07/24 Date of Discharge: 11/08/24 Primary Care Physician: Dr. Tom Giraldo MD Reason For Visit: HYPOKALEMIA, HAGMA, KIDNEY FAILURE Diagnosis Discharge Diagnosis (1) CHARLES (acute kidney injury): Status: Acute Code(s): N17.9 - Acute kidney failure, unspecified Plan 1. Acute kidney injury #2 hypokalemia #3 bipolar disorder #4 acute encephalopathy-etiology unclear #5 chronic pain #6 fibromyalgia #6 essential hypertension Medications at Discharge Home Medications nortriptyline 50 mg capsule (Pamelor) 100 mg PO QHS depression 10/13/17 propranolol 20 mg tablet 20 mg PO BID HIGH BLOOD PRESSURE 05/03/20 lamotrigine 200 mg tablet 200 mg PO DAILY MOOD 08/02/22 lorazepam 1 mg tablet 1 mg PO BID PRN anxiety 08/02/22 tizanidine 4 mg tablet 4 mg PO TID PRN Muscle Pain 08/02/22 gabapentin 800 mg tablet 800 mg PO TID 10/15/23 clonidine HCl 0.1 mg tablet 0.2 mg PO QHS BLOOD PRESSURE 11/13/23 dicyclomine 10 mg capsule 10 mg PO 4X/DAY PRN ABDOMINAL CRAMPS 11/13/23 fluorometholone 0.1 % eye drops,suspension 1 drp ophthalmic (eye) BID 11/13/23 hyoscyamine sulfate 0.125 mg disintegrating tablet 0.125 mg sublingual 4X/DAY PRN abdominal discomfort 11/13/23 promethazine 25 mg tablet 12.5 - 25 mg PO DAILY PRN nausea and vomiting 11/13/23 bupropion HCl 300 mg 24 hr tablet, extended release 300 mg PO DAILY 04/18/24 cariprazine 3 mg capsule (Vraylar) 3 mg PO QHS 04/18/24 duloxetine 60 mg capsule,delayed release 120 mg PO DAILY 04/18/24 medroxyprogesterone 150 mg/mL intramuscular syringe 150 mg IM .Q3MO 04/18/24 quetiapine 50 mg tablet 50 mg PO QHS 04/18/24 ascorbic acid (vitamin C) 1,000 mg tablet (Vitamin C) 1 g PO DAILY 90 days #90 tabs 04/22/24 calcium 500 mg (as carbonate)-vitamin D3 15 mcg (600 unit) tablet (Os-Alexander 500 + D3) 1 tab PO DAILY 90 days #90 tabs 04/22/24 ferrous sulfate 325 mg (65 mg iron) tablet 325 mg PO DAILY SUPPLEMENT #30 tabs 08/08/24 folic acid 1 mg tablet 1 mg PO DAILY SUPPLEMENT #30 tabs 08/08/24 lactulose 10 gram/15 mL oral solution 15 ml PO DAILY CONSTIPATION #473 mL 08/08/24 rizatriptan 10 mg tablet 10 mg PO .COMPLEX migraine headache #9 tabs 08/08/24 topiramate 100 mg tablet 100 mg PO BID #60 tabs 08/08/24 naproxen 500 mg tablet 500 mg PO BID PRN pain #60 tabs 09/01/24 acetaminophen 500 mg tablet (Tylenol Extra Strength) 500 mg PO Q6H PRN pain 10/11/24 ondansetron 8 mg disintegrating tablet 8 mg PO DAILY PRN nausea and vomiting 10/11/24 oxycodone-acetaminophen 10 mg-325 mg tablet (Percocet) 1 tab PO Q6H PRN pain 10/11/24 Hospital Course Operations None Procedures None Summary of Care Provided Minutes Spent on Discharge: 31 Hospital Course: This 44-year-old white female was brought into the emergency room at [facility] by squad after a neighbor reported her being confused and hallucinating. It is not known who called the squad and the police to evaluate her. On arrival to the ER, patient was delusional and confused, she was given IM Geodon and IV Ativan, talk screen was positive for oxycodone, cannabinoids, and benzodiazepines. Patient was not intoxicated. Due to the patient's sedation after the administration of the antipsychotic medications and anxiety medication, a clear picture could not be obtained from the patient as to what occurred at her home. Patient gets her meds through the mail and they are separately wrapped for each dose. Patient's creatinine was noted to be elevated and she was felt to have acute kidney injury. Patient's serum potassium was also low. Patient was admitted to PCU, I called and verified all her medications and placed the patient on some of her medications-I withheld some of them however as they were not available here. Patient initially was tearful and was anxious, after the administration of Seroquel, IV Ativan, and IV Nubain for complaints of pain, patient calmed down and her mentation improved. I talked to her friend on the phone who helps her with her medications but does not adjust any of them, her friend stated that there was no evidence that the patient was not taking her medication which is what was relayed to the emergency room physician by first responders. Patient was given IV fluids, she was given potassium replenishment, and repeat labs were obtained. Her creatinine did improve over her stay in the hospital and it was felt that she could be discharged home. She did not give any indication that she wanted to harm herself-the ER physician filled out a pink slip but I did not think this was appropriate for the patient. On 11/08/2024, patient was seen and examined: On examination she appeared in good health and spirits, she does not appear to be in any distress. Vital signs as documented. Skin warm and dry and without overt rashes. Neck without JVD, thyroid appears normal, trachea is midline, neck is supple. Lungs clear, normal air movement was noted. Heart exam notable for regular rhythm, normal sounds and absence of murmurs, rubs or gallops. Abdomen unremarkable and without evidence of organomegaly, masses, or abdominal aortic enlargement, bowel sounds are present in all 4 quadrants, no abdominal tenderness was noted. Extremities nonedematous, no cyanosis was noted, no clubbing was noted. Neuro: Cranial nerves II through XII are grossly intact, no focal motor deficits were noted, sensation to light touch and pinprick is intact, motor exam 5/5 throughout. Psych: Patient is alert and oriented x3, she does not appear anxious or depressed, she does not appear agitated. Patient was discharged home in stable condition on 11/08/2024. Weight / BMI Weight Weight: 71 kg Body Mass Index (BMI) 21.9 ABG / Lab / Microbiology Data 11/08/24 04:54 11/08/24 14:58 Laboratory: Laboratory Results - last 24 hr 11/07/24 19:30: Sodium 138, Potassium 3.1 L, Chloride 112 H, Carbon Dioxide 13.0 L, Anion Gap 13, BUN 30 H, Creatinine 3.09 H, Estim Creat Clear Calc 25.39 L, Est GFR (MDRD) Non-Af 19 L, BUN/Creatinine Ratio 9.5 L, Glucose 91, Calcium 8.1 11/08/24 04:54: WBC 10.7, RBC 3.73 L, Hgb 11.2 L, Hct 34.1 L, MCV 91.4, MCH 30.0, MCHC 32.8, RDW Std Deviation 49.4 H, RDW Coeff of Raquel 14.8 H, Plt Count 289, MPV 10.6, Immature Gran % (Auto) 0.900, Neut % (Auto) 81.3 H, Lymph % (Auto) 8.1 L, [place] % (Auto) 8.5, Eos % (Auto) 0.7, Baso % (Auto) 0.5, Absolute Neuts (auto) 8.7 H, Absolute Lymphs (auto) 0.87, Nucleated RBC % 0, Sodium 141, Potassium 3.1 L, Chloride 116 H, Carbon Dioxide 13.7 L, Anion Gap 11, BUN 27 H, Creatinine 2.47 H, Estim Creat Clear Calc 31.76 L, Est GFR (MDRD) Non-Af 24 L, BUN/Creatinine Ratio 10.7, Glucose 96, Calcium 8.3, Magnesium 2.0, Total Bilirubin 0.35, AST 20, ALT 82 H, Alkaline Phosphatase 121 H, Total Protein 6.1, Albumin 2.9 L, Globulin 3.2, Albumin/Globulin Ratio 0.9 11/08/24 05:18: Urine Osmolality 257, U Random Total Protein 46.3 H, Ur Random Sodium 50, Urine Creatinine 60.40, Protein/Creatinin Ratio 767 H, Urine Potassium 9.9, Urine Chloride 53, Urine Urea Nitrogen 199 11/08/24 14:58: Sodium 142, Potassium 3.2 L, Chloride 118 H, Carbon Dioxide 11.4 L, Anion Gap 13, BUN 22 H, Creatinine 1.69 H, Estim Creat Clear Calc 46.42 L, Est GFR (MDRD) Non-Af 38 L, BUN/Creatinine Ratio 12.9, Glucose 107 H, Calcium 8.8 D/C Instructions Discharge Diet: No restrictions Weight Bearing Status: Full weight bearing DC O2, CPAP, BIPAP Needs Home O2 Discharge instructions: No Meaningful Use Info Meaningful Use Meaningful Use Diagnoses (Choose all that apply): None applicable Ischemic Stroke Statin Dosing Therapy Reference: STATIN DOSE THERAPY REFERENCE: * Patients > 75 years receive moderate or high dose statin therapy. * Patients 75 years or YOUNGER should receive HIGH intensity statin dose unless contraindicated. You will be required to document reason for non-treatment if statin daily dose does not meet guidelines. HIGH DOSE STATIN THERAPY DAILY Atorvastatin > than or = to 40 mg Rosuvastatin > than or = to 20 mg Amlodipine + Atorvastatin > than or = to 2.5/40 mg Ezetimibe + Simvastatin 10/80 mg Simvastatin 80mg Discharge Plan Admission Admit Date/Time: 11/07/24 14:37 Primary Reason for Your Visit: Confusion, delirium Attending Provider: Jeyson Buckley Primary Care Provider: Tom Giraldo Consulting Providers: Liudmila Jerez Instructions Additional Instructions / Restrictions: Resume all home medications except for spironolactone and meloxicam Discharge Orders/Prescriptions Prescriptions: Continued gabapentin 800 mg tablet 800 mg PO TID ferrous sulfate 325 mg (65 mg iron) tablet 325 mg PO DAILY Qty: 30 7RF folic acid 1 mg tablet 1 mg PO DAILY Qty: 30 7RF lactulose 10 gram/15 mL solution 15 ml PO DAILY Qty: 473 7RF rizatriptan 10 mg tablet 10 mg PO .COMPLEX Qty: 9 7RF Rx Instructions: Take 1 tablet orally every two hours as needed for headache up to three tablets per day topiramate 100 mg tablet 100 mg PO BID Qty: 60 7RF naproxen 500 mg tablet 500 mg PO BID PRN (Reason: pain) Qty: 60 4RF nortriptyline [Pamelor] 50 MG capsule 100 mg PO QHS propranolol 20 MG tablet 20 mg PO BID lamotrigine 200 mg tablet 200 mg PO DAILY tizanidine 4 mg tablet 4 mg PO TID PRN (Reason: Muscle Pain) lorazepam 1 mg tablet 1 mg PO BID PRN (Reason: anxiety) clonidine HCl 0.1 mg tablet 0.2 mg PO QHS dicyclomine 10 mg capsule 10 mg PO 4X/DAY PRN (Reason: ABDOMINAL CRAMPS) hyoscyamine sulfate 0.125 mg tablet,disintegrating 0.125 mg sublingual 4X/DAY PRN (Reason: abdominal discomfort) promethazine 25 mg tablet 12.5 - 25 mg PO DAILY PRN (Reason: nausea and vomiting) fluorometholone 0.1 % drops,suspension 1 drp ophthalmic (eye) BID bupropion HCl 300 mg tablet extended release 24 hr 300 mg PO DAILY medroxyprogesterone 150 mg/mL syringe 150 mg IM .Q3MO quetiapine 50 mg tablet 50 mg PO QHS Vraylar 3 mg capsule 3 mg PO QHS duloxetine 60 mg capsule,delayed release(DR/EC) 120 mg PO DAILY calcium carbonate-vitamin D3 [Os-Alexander 500 + D3] 500 mg-15 mcg (600 unit) tablet 1 tab PO DAILY 90 Days Qty: 90 0RF ascorbic acid (vitamin C) [Vitamin C] 1,000 mg tablet 1 g PO DAILY 90 Days Qty: 90 0RF acetaminophen [Tylenol Extra Strength] 500 mg tablet 500 mg PO Q6H PRN (Reason: pain) ondansetron 8 mg tablet,disintegrating 8 mg PO DAILY PRN (Reason: nausea and vomiting) oxycodone-acetaminophen [Percocet] 10-325 mg tablet 1 tab PO Q6H PRN (Reason: pain) Discontinued spironolactone 25 mg tablet 25 mg PO DAILY meloxicam 7.5 mg tablet 7.5 mg PO BID PRN (Reason: pain) Referrals / Follow Up: Tom Giraldo MD [Primary Care Provider] - Within 2 Weeks Disposition Disposition (needs filled in before D/C Order can be placed): Home, Self Care Charges/Coding Visit Charges Inpatient E&M: 95112 Disch Hosp >30min
[2024-11-08] MEDS: Nalbuphine 10 MG/ML Ampul 15 MG IV (17:08)
[2024-11-08] MEDS: Potassium Chloride Oral Tablet 20 MEQ 60 MEQ PO (17:08)
[2024-11-08] MEDS: proCHLORPERazine 10 MG/2 ML Vial IV (17:08)
== END 2024-11-08 17:49 | disposition home or self-care (01) | DRG 469 ==
LOC: ED 14:11 → PCU 15:04
PROVIDERS: Admitting Provider Internal Medicine; Emergency Provider Emergency Medicine; PCP Family Medicine; Visit Provider Internal Medicine
DX: N17.9 Acute kidney failure, unspecified (principal); E78.5 Hyperlipidemia, unspecified; F31.9 Bipolar disorder, unspecified; I10 Essential (primary) hypertension; F41.9 Anxiety disorder, unspecified; M79.7 Fibromyalgia; E87.6 Hypokalemia; R44.0 Auditory hallucinations; R44.1 Visual hallucinations; Z79.02 Long term (current) use of antithrombotics/antiplatelets; Z79.899 Other long term (current) drug therapy
CPT/HCPCS: 36415; 76770; 80048; 80053; 80307; 81001; 82077; 82140; 82436; 82570; 83735; 83935; 84133; 84156; 84300; 84540; 84703; 85025; 93005; 99285; P9612; A4216; J3486

== ENCOUNTER 2024-11-09 15:05 | Inpatient (IN) | payer MEDICAID, SELFPAY ==
[2024-11-09] VITALS (10 sets, daily range): BP systolic 82–126; BP diastolic 47–109; PULSE 76–86; RESP 13–20; TEMP 36.2–37.1; O2SAT 95–100; BMI 21.1; BMI 24.0
--- NOTE | 2024-11-09 15:46 | ED.RN ---
Dr. Mc notified of pt flagging for sepsis, doc has not seen patient yet but was notified of vitals and sepsis screen,
--- NOTE | 2024-11-09 16:22 | EDS_ITS ---
HPI History of Present Illness Chief Complaint: Alt LOC Narrative Narrative: Chief complaint and HPI: Altered mental status. 44-year-old female with past medical history of depression, migraine, HTN, fibromyalgia presents for evaluation of altered mental status. History taken by report given patient's altered mental status. Patient was discharged from the hospital yesterday. She was in the car with her caregiver when she became confused and fatigued. Patient went to the PCPs office in which she was confused and minimally responsive so she was sent to the emergency department. On arrival, patient is alert and oriented x 3 although it takes multiple questioning to get the answer. She then starts talking off into a tangent about things that do not make sense. She does not answer any of my review of systems. Review of systems: See HPI Medications: As listed on the chart Allergies: As listed on the chart PFSH: Per chart Vital signs: As listed on the chart. Reviewed. Physical exam: Gen: A&O x3-although have to ask multiple times to get the answer and is actively confused in which she talks about things that do not make sense Head: Normocephalic, atraumatic Eyes: No sclera icterus, conjunctiva clear, PERRL ENT: Dry mucous membranes Neck: Trachea midline, No JVD CV: RRR, no murmurs, no peripheral edema Resp: Lungs CTA BL, no w/r/c GI: Abd soft, non-distended, non-tender, no r/r/g Musc: Full ROM, no deformity Skin: Warm, dry, excoriations throughout the body Neuro: Alert, grossly intact Psych: Muffled speech, confused PFSH [facility], LAT[facility] Medical History Vaping nicotine dependence, tobacco product Former smoker Chronic pain Restless legs Loss of hearing Wears glasses Incontinence Back pain History of pain when walking Gastroparalysis Bipolar disorder Ureteral calculus, right GERD (gastroesophageal reflux disease) Kidney stones Wears dentures Depression Walker as ambulation aid Arthritis DVT (deep venous thrombosis) Blackout Shortness of breath on exertion Fibromyalgia History of edema History of stress test Opioid use disorder Personality disorder, unspecified Major depressive disorder, recurrent, unspecified HLD (hyperlipidemia) IBS (irritable bowel syndrome) Migraine Insomnia Anxiety panic HTN (hypertension) Home Medications ?Medication ?Instructions ?Recorded ?Last Taken ?Type nortriptyline 50 mg capsule 100 mg PO QHS depression 0 10/13/17 11/12/23 History (Pamelor) propranolol 20 mg tablet 20 mg PO BID HIGH BLOOD PRES SURE 05/03/20 11/12/23 Hist ory lamotrigine 200 mg tablet 200 mg PO DAILY MOOD 3 11/12/23 History lorazepam 1 mg tablet 1 mg PO BID PRN anxiety 07/1611/12/23 History tizanidine 4 mg tablet 4 mg PO TID PRN Muscle Pain 08/02/22 11/12/23 History gabapentin 800 mg tablet 800 mg PO TID 10/15/2311/11 History clonidine HCl 0.1 mg tablet 0.2 mg PO QHS BLOOD PRESSU RE 11/13/23 11/12/23 History dicyclomine 10 mg capsule 10 mg PO 4X/DAY PRN ABDOMINA L 11/13/23 11/12/23 History CRAMPS fluorometholone 0.1 % eye 1 drp ophthalmic (eye) BID 0 11/13/23 11/12/23 History drops,suspension hyoscyamine sulfate 0.125 mg 0.125 mg sublingual 4X/DA Y PRN 11/13/23 11/12/23 History disintegrating tablet abdominal discomfort promethazine 25 mg tablet 12.5 - 25 mg PO DAILY PRN na usea 11/13/23 Unknown History and vomiting bupropion HCl 300 mg 24 hr tablet, 300 mg PO DAILY 07/11 Unknown History extended release cariprazine 3 mg capsule (Vraylar) 3 mg PO QHS 4 Unknown History duloxetine 60 mg capsule,delayed 120 mg PO DAILY 04/18 Unknown History release medroxyprogesterone 150 mg/mL 150 mg IM .Q3MO 04/18/24 Unknown History intramuscular syringe quetiapine 50 mg tablet 50 mg PO QHS 04/18/24 Unknow n History ascorbic acid (vitamin C) 1,000 mg 1 g PO DAILY 90 day s #90 tabs 04/22/24 Unknown Rx tablet (Vitamin C) calcium 500 mg (as 1 tab PO DAILY 90 days #90 t abs 04/22/24 Unknown Rx carbonate)-vitamin D3 15 mcg (600 unit) tablet (Os-Alexander 500 + D3) ferrous sulfate 325 mg (65 mg 325 mg PO DAILY SUPPLEME NT #30 tabs 08/08/24 Unknown Rx iron) tablet folic acid 1 mg tablet 1 mg PO DAILY SUPPLEMENT #30 tabs 08/08/24 Unknown Rx lactulose 10 gram/15 mL oral 15 ml PO DAILY CONSTIPATI ON #473 mL 08/08/24 Unknown Rx solution rizatriptan 10 mg tablet 10 mg PO .COMPLEX migraine 0 08/08/24 Unknown Rx headache #9 tabs topiramate 100 mg tablet 100 mg PO BID #60 tabs 08/08 Unknown Rx naproxen 500 mg tablet 500 mg PO BID PRN pain #60 t abs 09/01/24 Unknown Rx acetaminophen 500 mg tablet 500 mg PO Q6H PRN pain Unknown History (Tylenol Extra Strength) ondansetron 8 mg disintegrating 8 mg PO DAILY PRN naus ea and 10/11/24 Unknown History tablet vomiting oxycodone-acetaminophen 10 mg-325 1 tab PO Q6H PRN lisseth n 10/11/24 Unknown History mg tablet (Percocet) meloxicam 7.5 mg tablet 7.5 mg PO BID PRN PRN pain 0 11/09/24 Unknown History spironolactone 25 mg tablet 25 mg PO DAILY 11/09/24 Un known History Allergy/AdvReac Type Severity Reaction Status Date / Time aspirin AdvReac Mild Nausea Verified 10/11/24 14:52 Family History Father Hypertension Heart disease Brother CAD (coronary artery disease) Myocardial infarction Mother Heart disease Myocardial infarction Surgical History Hx of foot surgery Hx of cystoscopy Hx of cystoscopy History of cholecystectomy History of repair of hiatal hernia History of esophagogastroduodenoscopy (EGD) S/P laparoscopic cholecystectomy Social History (Updated 11/09/24 @ 20:[address] Karen Griffiths MD) household members: children Smoking Status: Current every day smoker tobacco type: cigarettes Electronic Cigarette Use: with nicotine alcohol intake: never substance use type: marijuana EXAM Physical Exam Const Vital Signs: 11/09/24 15:10 11/09/24 15:13 11/09/24 16:06 Temperature 97.2 F L 97.2 F L Temperature Source Temporal Temporal Pulse Rate 83 83 82 Respiratory Rate 13 13 18 Blood Pressure 82/47 L 82/47 L 103/87 H Blood Pressure Mean 58 58 92 Pulse Ox 95 95 100 Oxygen Delivery Method Room Air Room Air Room Air 11/09/24 17:00 11/09/24 18:00 11/09/24 19:00 Temperature Temperature Source Pulse Rate 80 78 86 Respiratory Rate 13 14 14 Blood Pressure 100/70 102/85 H 126/109 H Blood Pressure Mean 80 90 114 Pulse Ox 97 96 100 Oxygen Delivery Method Room Air Room Air Room Air 11/09/24 19:28 Temperature 98.7 F Temperature Source Pulse Rate 79 Respiratory Rate 20 H Blood Pressure 95/76 Blood Pressure Mean 82 Pulse Ox 100 Oxygen Delivery Method MDM MDM MDM Narrative Medical decision making narrative: 44-year-old female with past medical history of depression, migraine, HTN, fibromyalgia presents for evaluation of altered mental status. History taken by report given patient's altered mental status. Patient was discharged from the hospital yesterday. She was in the car with her caregiver when she became confused and fatigued. Patient went to the PCPs office in which she was confused and minimally responsive so she was sent to the emergency department. On arrival, patient is alert and oriented x 3 although it takes multiple questioning to get the answer. She then starts talking off into a tangent about things that do not make sense. She does not answer any of my review of systems. On presentation, patient is hypotensive but otherwise vitals are stable. Differential diagnosis includes but is not limited to dehydration, electrolyte abnormality, intracranial abnormality, UTI, pneumonia, substance intoxication. On chart review, patient has history of elevated ammonia, will obtain ammonia level with altered mental status workup. NS bolus ordered. On chart review, patient was discharged from our hospital yesterday due to CHARLES, hypokalemia, acute encephalopathy of unclear etiology. EKG reviewed see below. She did have a renal ultrasound performed at that time, this was personally reviewed by me. On presentation, she is hypotensive 82/47. She already received an NS bolus via EMS. Will order another NS bolus. Altered mental status workup ordered. CBC without leukocytosis. Patient has anemia of 10.2, this is downtrending from yesterday at 11.2. Platelet count unremarkable. CMP consistent with dehydration. Patient has renal insufficiency with creatinine of 1.34 although it is improving from 11/08 at 1.69. Patient has downtrending ALT transaminitis. Lactic acid unremarkable. Magnesium level unremarkable. Ammonia level unremarkable. Troponin x 2 unremarkable. UA is positive for UTI. Urine culture sent. Rocephin ordered. Urine negative. UA positive for oxycodone, benzodiazepine, cannabis. Alcohol level unremarkable. I received a call from the radiologist with concerns for patient's chest x-ray. I personally reviewed this as well. There is partially visualized very distended, air-filled bowels concerning for obstruction or ileus. Bibasilar opacities concerning for possible pneumonia. Recommend CT abdomen pelvis ordered. This was ordered. CT brain negative for acute intracranial process. CT abdomen pelvis shows obstructing right ureteral stones with mild hydroureteronephrosis and delayed nephrogram. Right middle lobe groundglass opacities may reflect pneumonitis/developing pneumonia. Diffuse large bowel dilation represent ileus or developing bowel obstruction. Mild hepatic venous congestion. Given concern for possible pneumonia, azithromycin added. On speaking with the patient, she is still confused. States she thinks she follows with Dr. Aggarwal. On chart review, there is a note from Dr. Aggarwal. She was consulted. Plan is for patient to be n.p.o. with ureteral stent placement tomorrow. Hospital admission. Patient discussed with the hospitalist service who accepted admission. EKG: Interpreted by me/EM physician: EKG shows normal sinus rhythm without any acute ischemic changes. Heart rate 82. Impression: 1. Acute encephalopathy, multifactorial 2. Complicated UTI with obstructing right ureteral stones with mild hydroureteronephrosis 3. Ileus 4. Right middle lobe groundglass opacity possible pneumonitis versus pneumonia 5. Recent CHARLES on CKD 6. Anemia 7. Transient hypotension Lab Data Labs: Laboratory Results - last 24 hr 11/09/24 11/09/24 11/09/24 16:15 16:25 17:17 WBC 8.8 RBC 3.51 L Hgb 10.2 L Hct 33.3 L MCV 94.9 MCH 29.1 MCHC 30.6 L D RDW Std Deviation 54.6 H RDW Coeff of Raquel 15.7 H Plt Count 363 MPV 10.1 Immature Gran % (Auto) 2.400 H Neut % (Auto) 69.5 Lymph % (Auto) 14.9 L Charles % (Auto) 11.5 H Eos % (Auto) 1.0 Baso % (Auto) 0.7 Absolute Neuts (auto) 6.1 Absolute Lymphs (auto) 1.32 Nucleated RBC % 0 Sodium 141 Potassium 4.3 Chloride 117 H Carbon Dioxide 13.7 L Anion Gap 10 BUN 15 Creatinine 1.34 H Estim Creat Clear Calc 57.17 Est GFR (MDRD) Non-Af 50 L BUN/Creatinine Ratio 11.1 Glucose 109 H Lactic Acid < 1.0 Calcium 9.1 Magnesium 1.8 Total Bilirubin 0.46 AST 21 ALT 63 H Alkaline Phosphatase 132 H Ammonia 19.5 Troponin T High Sens 11 Total Protein 6.5 Albumin 3.3 L Globulin 3.1 Albumin/Globulin Ratio 1.1 Urine Color Yellow Urine Clarity Cloudy Urine pH 6.0 Ur Specific [place] 1.010 Urine Protein 100 H Urine Glucose (UA) Normal Urine Ketones Negative Urine Occult Blood 150 H Urine Nitrite Negative Urine Bilirubin Negative Urine Urobilinogen Normal Ur Leukocyte Esterase 500 H Urine RBC 5-10 SEEN Urine WBC 25-50 SEEN Ur Squamous Epith Cells 0-5 SEEN Ur Transition Epith Cell 0-5 SEEN Amorphous Sediment 1+ Urine Bacteria 1+ Urine Mucus 0 SEEN Urine Test Negative Urine Opiates Screen NEGATIVE U Buprenorphine Qual NEGATIVE Ur Oxycodone Screen PRESUMPTIVE POSITIVE Urine Methadone Screen NEGATIVE Urine Fentanyl Screen NEGATIVE Ur Barbiturates Screen NEGATIVE Ur Phencyclidine Scrn NEGATIVE Ur Amphetamines Screen NEGATIVE U Benzodiazepines Scrn PRESUMPTIVE POSITIVE Urine Cocaine Screen NEGATIVE U Cannabinoids Screen PRESUMPTIVE POSITIVE Ethyl Alcohol < 10.1 Radiography Diagnostic Testing: Clinical Impression(s) from Imaging Studies Chest X-Ray 11/09/24 16:30 IMPRESSION: Bibasilar opacities, right more than left may reflect pulmonary edema, pneumonia, and/or atelectasis. Partially visualized very distended, air-filled bowels concerning for obstruction or ileus. Consider dedicated KUB or CT abdomen pelvis for further evaluation. Reading Location: [facility] Brain CT 11/09/24 16:38 IMPRESSION: No acute intracranial process. Reading Location: [facility] Abdomen/Pelvis CT 11/09/24 17:30 IMPRESSION: 1. Obstructing right ureteral stones with mild hydroureteronephrosis and delayed nephrogram. 2. Right middle lobe ground-glass opacities, which may reflect pneumonitis/developing pneumonia. 3. Diffuse large bowel dilation, which is indeterminate in etiology and may represent ileus or developing bowel obstruction. Progress abdominal radiographs recommended. 4. mild hepatic venous congestion, of indeterminate etiology. Correlation with LFTs and patient history recommended. Reading Location: [id number] Discharge Plan Disposition Disposition: Acute Care Hospital [facility] Discharge Date/Time: 11/09/24 20:27
--- NOTE | 2024-11-09 16:30 | RAD_ITS ---
PROCEDURE: CHEST PA AND LATERAL 11/09/2024 REASON FOR EXAM: ALTERED MENTAL STATUS TECHNIQUE: CHEST PA AND LATERAL COMPARISON: Prior CT chest from 03/12/2024 FINDINGS: Bibasilar opacities, right more than left may reflect pulmonary edema, pneumonia, and/or atelectasis. Mild pulmonary vascular congestion. Cardiac silhouette is unchanged. Neurostimulator device is noted. No acute fractures. Partially visualized very distended air-filled bowels concerning for obstruction or ileus. Consider dedicated KUB or CT abdomen pelvis for further evaluation. RAD/Chest PA and Lateral IMPRESSION: Bibasilar opacities, right more than left may reflect pulmonary edema, pneumoni a, and/or atelectasis. Partially visualized very distended, air-filled bowels concerning for obstructi on or ileus. Consider dedicated KUB or CT abdomen pelvis for further evaluation. Reading Location: [id number]
[2024-11-09 16:31] LABS: Absolute Lymphocyte Count 1.32 X10^3/uL (0.83-4.51); Absolute Neutrophil Count 6.1 X10^3/uL (2.0-7.7); Basophil# 0.06 X10^3/uL; Basophil% 0.7 % (0-1); Eosinophil# 0.09 X10^3/uL; Hematocrit 33.3 % (37-47); Hemoglobin 10.2 g/dL (12.0-15.0); Lymphocyte # 1.32 X10^3/ul (0.83-4.51); Lymphocyte % 14.9 % (19-41); Mean Corp Hgb Conc 30.6 g/dL (32-36); Mean Corpuscular Hgb 29.1 pg (27.0-32.0); Mean Corpuscular Volume 94.9 fL (81-99); Mean Platelet Vol. 10.1 fl (6.2-12.0); Monocyte# 1.02 X10^3/uL; Monocyte% 11.5 % (0-10); NRBC Flagged by Analyzer 0 % (0-5); Neutrophil # 6.14 X10^3/uL (2.7-7.7); Neutrophil % 69.5 % (47-70); Platelet Count 363 K/mm3 (150-450); RBC Distribution Width CV 15.7 % (11.6-14.6); RBC Distribution Width SD 54.6 fl (35.1-43.9); Red Blood Count 3.51 M/mm3 (4.2-5.4); White Blood Count 8.8 K/mm3 (4.4-11.0)
--- NOTE | 2024-11-09 16:38 | CT_ITS ---
PROCEDURE: BRAIN/HEAD WITHOUT CONTRAST 11/09/2024 REASON FOR EXAM: ALTERED MENTAL STATUS TECHNIQUE: BRAIN/HEAD WITHOUT CONTRAST Coronal and Sagittal reconstruction series were provided. One or more dose reduction techniques were used (e.g., Automated exposure control, adjustment of the mA and/or kV according to patient size, use of iterative reconstruction technique. RADIATION DOSE SUMMARY: DLP: 873 mGycm COMPARISON: 11/03/2024 FINDINGS: There is no acute infarct, intracranial hemorrhage, or mass effect. There is no hydrocephalus or significant midline shift. There is mild chronic microvascular ischemic changes. No acute, depressed calvarial fractures. No large scalp hematomas. CT/Brain/Head without Contrast IMPRESSION: No acute intracranial process. Reading Location: [id number]
[2024-11-09] MEDS: 0.9% Normal Saline (1000mL) 1,000 ML 1000 ML IV ×2 (16:42→19:51)
[2024-11-09 16:58] LABS: ALB/GLOB Ratio 1.1 RATIO (0.9-2.4); AST(SGOT) 21 U/L (<=31); Alanine Aminotransfer ALT/SGPT 63 U/L (<=34); Albumin, Serum 3.3 g/dL (3.5-5.0); Alkaline Phosphatase 132 U/L (35-104); Anion Gap 10 (5-15); BUN 15 mg/dL (4-19); BUN/Creat Ratio 11.1 RATIO (10-20); Calcium,Total 9.1 mg/dL (7.6-11.0); Carbon Dioxide 13.7 mmol/L (21.0-32.0); Chloride 117 mmol/L (98-108); Creatinine, Serum 1.34 mg/dL (0.70-1.20); EST Glomerular Filtration Rate 50 (>60); Estimated Creatinine Clearance 57.17 ml/min (50-250); Globulin 3.1 g/dL (2.2-4.2); Glucose 109 mg/dL (70-99); Lactic Acid < 1.0 mmol/L (0.0-2.0); Potassium 4.3 mmol/L (3.3-5.1); Protein, Total 6.5 g/dL (5.9-8.4); Sodium Level 141 mmol/L (133-145); Total Bilirubin 0.46 mg/dL (0.00-1.30)
[2024-11-09 17:06] LABS: Ammonia 19.5 umol/L (11-51)
[2024-11-09 17:08] LABS: Alcohol, Blood (Medical)-Serum < 10.1 mg/dL (<=10.0)
[2024-11-09 17:18] LABS: Magnesium 1.8 mg/dL (1.5-2.2)
[2024-11-09 17:22] LABS: Troponin T High Sensitivity 11 ng/L (<=14)
[2024-11-09 17:23] LABS: Mucous, Urine 0 SEEN /hpf (<or=2+)
--- NOTE | 2024-11-09 17:30 | CT_ITS ---
PROCEDURE: ABDOMEN/PELVIS W IV CONT ONLY 11/09/2024 REASON FOR EXAM: BOWEL DISTENTION TECHNIQUE: ABDOMEN/PELVIS W IV CONT ONLY Coronal and Sagittal reconstruction series were provided. CONTRAST: Isovue 370 VOLUME: 100 mL One or more dose reduction techniques were used (e.g., Automated exposure control, adjustment of the mA and/or kV according to patient size, use of iterative reconstruction technique. RADIATION DOSE SUMMARY: DLP: 620 mGycm COMPARISON: Abdominal radiographs 11/30/2023. FINDINGS: Lung bases: Partially visualized right middle lobe ground-glass opacities. Additional bibasilar atelectasis. Liver: The liver is normal in size with mild diffuse hepatic venous congestion. The major portal veins are patent. Mild biliary ductal dilation. Gallbladder: Prior cholecystectomy. Spleen: Normal in size. Pancreas: Unremarkable. Adrenals: No adrenal mass. Kidneys: Bilateral renal calculi with mild right hydroureteronephrosis. There are several, small obstructing stones within the distal right ureter (series 2, images 109, 117 and 120), the largest measuring up to 0.5 cm. Delayed right nephrogram. Bladder: Mildly distended and unremarkable. Reproductive Organs: Normal uterine size and contour. Ovaries are unremarkable. Bowel: Diffuse large bowel dilation measuring up to 8.6 cm. The small bowel loops are normal caliber. No ascites or free air. No inflammatory mass in the expected region of the appendix. Lymph nodes: No suspicious lymph node enlargement. Vasculature: The abdominal aorta and IVC are normal. Bones/soft tissues: Small fat containing umbilical hernia. Spinal cord stimulator with battery pack within the right flank. CT/Abdomen/Pelvis W IV Cont ONLY IMPRESSION: 1. Obstructing right ureteral stones with mild hydroureteronephrosis and delaye d nephrogram. 2. Right middle lobe ground-glass opacities, which may reflect pneumonitis/deve loping pneumonia. 3. Diffuse large bowel dilation, which is indeterminate in etiology and may rep resent ileus or developing bowel obstruction. Progress abdominal radiographs recommended. 4. mild hepatic venous congestion, of indeterminate etiology. Correlation with LFTs and patient history recommended. Reading Location: [id number]
[2024-11-09 17:31] LABS: Color, Urine Yellow (Yellow); Glucose, Dipstick Normal (Normal); Ketone-Dipstick Negative (Negative); Leukocyte Esterase-Dipstick 500 /ul (Negative); Nitrite-Dipstick Negative (Negative); Occult Blood-Urine 150 /ul (Negative); Protein-Dipstick 100 mg/dl (Negative); Urine Bilirubin Dipstick Negative (Negative); Urine Clarity Cloudy (Clear); Urine Urobilinogen Normal (Normal)
[2024-11-09 17:41] LABS: Internal QC Validated? YES +Cl - CLEAR BKGD; Pregnancy, Urine Negative Negative; Record Kit Lot#,Urine Preg 947241
[2024-11-09 17:57] LABS: Amphetamine Urine NEGATIVE (<1000 ng/mL); Barbiturate Urine NEGATIVE (< 200 ng/mL); Benzodiazepine Urine PRESUMPTIVE POSITIVE (< 200 ng/mL); Buprenorphine Urine NEGATIVE (< 200 ng/mL); Cocaine Urine NEGATIVE (< 300 ng/mL); Fentanyl, Urine NEGATIVE; Methadone Urine NEGATIVE (< 300 ng/mL); Opiates Urine NEGATIVE (< 300 ng/mL); Oxycodone, Urine PRESUMPTIVE POSITIVE (< 100 ng/mL); PCP Urine NEGATIVE (< 25 ng/mL); THC Urine PRESUMPTIVE POSITIVE (< 50 ng/mL)
[2024-11-09 17:58] LABS: Red Blood Cells-Urine 5-10 SEEN /hpf (0-5); White Blood Cells 25-50 SEEN /hpf (0-5)
[2024-11-09 17:59] LABS: Bacteria 1+ /hpf (None Seen); Squamous Epithelial Cells - UA 0-5 SEEN /hpf (5-10); Transitional Epithelial - Ur 0-5 SEEN /hpf (0-5)
[2024-11-09 18:00] LABS: Amorphous Sediment 1+
--- NOTE | 2024-11-09 18:37 | ED.RN ---
RN heard pt yelling inside of room. turned to see pt standing in the doorway, holding R AC where 20G IV was. pt asking where her dad was, RN informed this PT that dad had not been here the entire length of her stay in the department. Pt started yelling, crying stating that her dad had . RN assisted pt to chair, pt refused to sit yelling, I just shit myself I'm not sitting down! RN told pt that bedside commode was in room and to have a seat on commode. Dressing on IV that was ripped out. Catheter on the bed, intact. Pt had turned off monitor. Pt hooked back up to monitor, placed into bed. Dr. green made aware.
[2024-11-09] MEDS: Ceftriaxone 1 GM/50 ML BAG IV (18:51)
--- NOTE | 2024-11-09 19:23 | PCM.HP.STD ---
HPI - General General Date of Admission: 11/09/24 Date of Service: 11/09/24 Chief Complaint: Recurrent confusion. HPI Narrative The patient is a 44 y/o F w/ PMHx: Chronic migraines, Current Vaping nicotine usage, Anxiety and Depression/Bipolar disorder/Personality disorder, GERD, Hx VTE, Opiate use disorder, HTN, HLD, IBS, CKD stage II per previous GFR trending, admission of Intermittent Cannabis usage, recent discharge 11/08/24 with recent admission 11/07/24-11/08/24 with CHARLES, hypokalemia, acute encephalopathy and agitation with initial concern for possible self harm with pink slip in the ED; however, she declined SI/homicidal ideations and this was de-escalated given resolution of delirium/confusion with improved renal function with temporary hold on meloxicam and spironolactone who now re-presents to the [facility] [place] ED on 11/09/24 with history of recurrent altered mental status noted to be in the car with a caregiver with recurrent confusion and increased fatigue malaise prompting PCP evaluation reportedly minimally responsive thus referred to the ED again with upon arrival improvement with orientation x 3 but patient was more slow to answer and tangential. In the ED she is more alert and oriented x 3 following ED interventions and notes she has been confused and having increased urinary frequency as well as BL flank discomfort, R > L noting pain constant, aching, 6-7/10 in severity with poor oral intake, nausea without emesis. She does have chronic constipation. Workup in the ED included T97.2, heart rate 83, BP initially 82/47, respiratory rate 13, 95% on room air with most recent repeat vital signs heart rate 86, BP 126/109, respiratory rate 14, 100% room air, CBC with WBC 8.8, hgb 10.2, MCV 94.9, platelet 363 with increased immature granulocytes, CMP with chloride 117, carbon dioxide 13.7, BUN/creatinine 15/1.34, GFR 50, glucose 109, lactic acid less than 1.0,troponin 11, AST/LT 21/63, alk phos 132, ammonia 19.5, urinalysis with cloudy appearing urine, specific roughly 1.010, protein 100, occult blood 150, leukocyte Estrace 500 with urine WBCs 25-50 with 1+ urine bacteria, UDS with positive oxycodone, benzodiazepine, cannabis, ethyl alcohol less than 10.1, chest x-ray with bibasilar opacities, right greater than left possibly edema, pneumonia or atelectasis, CT of the brain with no acute intracranial process, CT abdomen and pelvis with IV contrast with obstructing right ureteral stones with mild hydronephrosis and delayed nephrogram, right middle lobe groundglass opacities possibly pneumonitis/developing pneumonia, diffuse large bowel dilatation of indeterminate etiology possibly ileus versus developing bowel obstruction, mild hepatic venous congestion and indeterminate etiology. In the ED patient administered 2 L normal saline, azithromycin 500 mg IV x 1, Rocephin 1 g IV x 1. ED discussed case with Dr. Aggarwal with plan for AM urological intervention/ureteral stent placement. [facility] Medical History Vaping nicotine dependence, tobacco product Former smoker Chronic pain Restless legs Loss of hearing Wears glasses Incontinence Back pain History of pain when walking Gastroparalysis Bipolar disorder Ureteral calculus, right GERD (gastroesophageal reflux disease) Kidney stones Wears dentures Depression Walker as ambulation aid Arthritis DVT (deep venous thrombosis) Blackout Shortness of breath on exertion Fibromyalgia History of edema History of stress test Opioid use disorder Personality disorder, unspecified Major depressive disorder, recurrent, unspecified HLD (hyperlipidemia) IBS (irritable bowel syndrome) Migraine Insomnia Anxiety panic HTN (hypertension) Home Medications ?Medication ?Instructions ?Recorded ?Last Taken ?Type nortriptyline 50 mg capsule 100 mg PO QHS depression 10/13/17 11/12/23 History (Pamelor) propranolol 20 mg tablet 20 mg PO BID HIGH BLOOD PRESSURE 05/03/20 11/12/23 History lamotrigine 200 mg tablet 200 mg PO DAILY MOOD 08/02/22 11/12/23 History lorazepam 1 mg tablet 1 mg PO BID PRN anxiety 08/02/22 11/12/23 History tizanidine 4 mg tablet 4 mg PO TID PRN Muscle Pain 08/02/22 11/12/23 History gabapentin 800 mg tablet 800 mg PO TID 10/15/23 11/12/23 History clonidine HCl 0.1 mg tablet 0.2 mg PO QHS BLOOD PRESSURE 11/13/23 11/12/23 History dicyclomine 10 mg capsule 10 mg PO 4X/DAY PRN ABDOMINAL 11/13/23 11/12/23 History CRAMPS fluorometholone 0.1 % eye 1 drp ophthalmic (eye) BID 11/13/23 11/12/23 History drops,suspension hyoscyamine sulfate 0.125 mg 0.125 mg sublingual 4X/DAY PRN 11/13/23 11/12/23 History disintegrating tablet abdominal discomfort promethazine 25 mg tablet 12.5 - 25 mg PO DAILY PRN nausea 11/13/23 Unknown History and vomiting bupropion HCl 300 mg 24 hr tablet, 300 mg PO DAILY 04/18/24 Unknown History extended release cariprazine 3 mg capsule (Vraylar) 3 mg PO QHS 04/18/24 Unknown History duloxetine 60 mg capsule,delayed 120 mg PO DAILY 04/18/24 Unknown History release medroxyprogesterone 150 mg/mL 150 mg IM .Q3MO 04/18/24 Unknown History intramuscular syringe quetiapine 50 mg tablet 50 mg PO QHS 04/18/24 Unknown History ascorbic acid (vitamin C) 1,000 mg 1 g PO DAILY 90 days #90 tabs 04/22/24 Unknown Rx tablet (Vitamin C) calcium 500 mg (as 1 tab PO DAILY 90 days #90 tabs 04/22/24 Unknown Rx carbonate)-vitamin D3 15 mcg (600 unit) tablet (Os-Alexander 500 + D3) ferrous sulfate 325 mg (65 mg 325 mg PO DAILY SUPPLEMENT #30 tabs 08/08/24 Unknown Rx iron) tablet folic acid 1 mg tablet 1 mg PO DAILY SUPPLEMENT #30 tabs 08/08/24 Unknown Rx lactulose 10 gram/15 mL oral 15 ml PO DAILY CONSTIPATION #473 mL 08/08/24 Unknown Rx solution rizatriptan 10 mg tablet 10 mg PO .COMPLEX migraine 08/08/24 Unknown Rx headache #9 tabs topiramate 100 mg tablet 100 mg PO BID #60 tabs 08/08/24 Unknown Rx naproxen 500 mg tablet 500 mg PO BID PRN pain #60 tabs 09/01/24 Unknown Rx acetaminophen 500 mg tablet 500 mg PO Q6H PRN pain 10/11/24 Unknown History (Tylenol Extra Strength) ondansetron 8 mg disintegrating 8 mg PO DAILY PRN nausea and 10/11/24 Unknown History tablet vomiting oxycodone-acetaminophen 10 mg-325 1 tab PO Q6H PRN pain 10/11/24 Unknown History mg tablet (Percocet) meloxicam 7.5 mg tablet 7.5 mg PO BID PRN PRN pain 11/09/24 Unknown History spironolactone 25 mg tablet 25 mg PO DAILY 11/09/24 Unknown History Allergy/AdvReac Type Severity Reaction Status Date / Time aspirin AdvReac Mild Nausea Verified 10/11/24 14:52 Family History Father Hypertension Heart disease Brother CAD (coronary artery disease) Myocardial infarction Mother Heart disease Myocardial infarction Surgical History Hx of foot surgery Hx of cystoscopy Hx of cystoscopy History of cholecystectomy History of repair of hiatal hernia History of esophagogastroduodenoscopy (EGD) S/P laparoscopic cholecystectomy Social History (Updated 11/09/24 @ 20:[address] Karen Griffiths MD) household members: children Smoking Status: Current every day smoker Electronic Cigarette Use: with nicotine alcohol intake: never substance use type: marijuana ROS ROS Narrative Admission Review of Systems: CONSTITUTIONAL: No weight loss, fever, chills, + weakness or fatigue. HEENT: + Chronic headaches. Eyes: No visual loss, blurred vision, double vision or yellow sclerae. Ears, Nose, Throat: No hearing loss, sneezing, congestion, runny nose or sore throat. SKIN: No rash or itching, lesions, wounds + except occasional stage ecchymoses, abrasions. CARDIOVASCULAR: No chest pain, chest pressure or chest discomfort, palpitations, edema, orthopnea, syncopal events. RESPIRATORY: No shortness of breath, cough or sputum, wheezing, hemoptysis. GASTROINTESTINAL: + anorexia, nausea, chronic constipation, bilateral flank pain, right greater than left, abdominal cramping. No vomiting, diarrhea, focal abdominal pain but does admit to flank pain, melena, BRBPR. GENITOURINARY: + Increased urinary frequency, bilateral flank pain, right greater than left. No dysuria, urgency or retention. NEUROLOGICAL: + Chronic headaches. No marked dizziness, syncope, paralysis, ataxia, numbness or tingling in the extremities, focal weakness, change in bowel or bladder control, seizure. MUSCULOSKELETAL: + muscle, back pain, joint pain or stiffness. HEMATOLOGIC: No anemia, bleeding or bruising. LYMPHATICS: No enlarged nodes. No history of splenectomy. PSYCHIATRIC: + History of anxiety and depression/bipolar disorder/personality disorder. ENDOCRINOLOGIC: No reports of sweating, cold or heat intolerance. No polyuria or polydipsia. ALLERGIES: No history of asthma, hives, eczema or rhinitis. Vital Signs Vital Signs Vital Signs: 11/09/24 15:10 11/09/24 15:13 11/09/24 16:06 Temperature 97.2 F L 97.2 F L Temperature Source Temporal Temporal Pulse Rate 83 83 82 Respiratory Rate 13 13 18 Blood Pressure 82/47 L 82/47 L 103/87 H Blood Pressure Mean 58 58 92 Pulse Ox 95 95 100 Oxygen Delivery Method Room Air Room Air Room Air 11/09/24 17:00 11/09/24 18:00 11/09/24 19:00 Temperature Temperature Source Pulse Rate 80 78 86 Respiratory Rate 13 14 14 Blood Pressure 100/70 102/85 H 126/109 H Blood Pressure Mean 80 90 114 Pulse Ox 97 96 100 Oxygen Delivery Method Room Air Room Air Room Air Weight Weight: 147 lb 7.828 oz Body Mass Index (BMI) 21.1 Physical Exam Narrative Physical Examination: General: Awake, alert, oriented to self, place and recent events, appears improved since initial ED arrival as had been encephalopathic/confused, seated upright in ED bed, notes ongoing persistent abdominal discomfort/cramping and flank discomfort, right greater than left. Skin: Normal color, normal turgor, no icterus, no cyanosis except occasional stage ecchymoses, abrasions. HEENT: AT/NC, EOMI, PERRLA, dry MM, no carotid bruits or JVD noted. Lungs: Mildly diminished, greater bases, appropriate effort, no rales, ronchi or wheezing. Heart: Regular rate and rhythm; no gallop, rub audible. Abdomen: Soft, mild generalized discomfort with palpation but no rebound or guarding, no marked distention, mildly hyperactive bowel sounds, notable mild flank discomfort with right greater than left, no obvious HSM. Extremities: No cyanosis, clubbing, or edema. Neurological: Patient awake, alert, oriented as noted, improved since initial ED arrival, cognitive function currently nearing baseline intact, pupils equally reactive to light and accommodation, cranial nerves grossly normal, moving all 4 extremities, no focal deficits, strength improving, moderately to severely global decreased Psychiatric: Affect appears flat, fatigued, anxious, does have underlying anxiety and depression/bipolar disorder/personality disorder. Results Lab / Micro Data 11/09/24 16:15 11/09/24 16:15 Labs: Laboratory Results - last 24 hr 11/09/24 16:15: WBC 8.8, RBC 3.51 L, Hgb 10.2 L, Hct 33.3 L, MCV 94.9, MCH 29.1, MCHC 30.6 L D, RDW Std Deviation 54.6 H, RDW Coeff of Raquel 15.7 H, Plt Count 363, MPV 10.1, Immature Gran % (Auto) 2.400 H, Neut % (Auto) 69.5, Lymph % (Auto) 14.9 L, Alfalfa % (Auto) 11.5 H, Eos % (Auto) 1.0, Baso % (Auto) 0.7, Absolute Neuts (auto) 6.1, Absolute Lymphs (auto) 1.32, Nucleated RBC % 0, Sodium 141, Potassium 4.3, Chloride 117 H, Carbon Dioxide 13.7 L, Anion Gap 10, BUN 15, Creatinine 1.34 H, Estim Creat Clear Calc 57.17, Est GFR (MDRD) Non-Af 50 L, BUN/Creatinine Ratio 11.1, Glucose 109 H, Lactic Acid < 1.0, Calcium 9.1, Magnesium 1.8, Total Bilirubin 0.46, AST 21, ALT 63 H, Alkaline Phosphatase 132 H, Troponin T High Sens 11, Total Protein 6.5, Albumin 3.3 L, Globulin 3.1, Albumin/Globulin Ratio 1.1, Ethyl Alcohol < 10.1 11/09/24 16:25: Ammonia 19.5 11/09/24 17:17: Urine Color Yellow, Urine Clarity Cloudy, Urine pH 6.0, Ur Specific Purlear 1.010, Urine Protein 100 H, Urine Glucose (UA) Normal, Urine Ketones Negative, Urine Occult Blood 150 H, Urine Nitrite Negative, Urine Bilirubin Negative, Urine Urobilinogen Normal, Ur Leukocyte Esterase 500 H, Urine RBC 5-10 SEEN, Urine WBC 25-50 SEEN, Ur Squamous Epith Cells 0-5 SEEN, Ur Transition Epith Cell 0-5 SEEN, Amorphous Sediment 1+, Urine Bacteria 1+, Urine Mucus 0 SEEN, Urine Test Negative, Urine Opiates Screen NEGATIVE, U Buprenorphine Qual NEGATIVE, Ur Oxycodone Screen PRESUMPTIVE POSITIVE, Urine Methadone Screen NEGATIVE, Urine Fentanyl Screen NEGATIVE, Ur Barbiturates Screen NEGATIVE, Ur Phencyclidine Scrn NEGATIVE, Ur Amphetamines Screen NEGATIVE, U Benzodiazepines Scrn PRESUMPTIVE POSITIVE, Urine Cocaine Screen NEGATIVE, U Cannabinoids Screen PRESUMPTIVE POSITIVE Imaging Radiology Impression Chest X-Ray 11/09/24 16:30 IMPRESSION: Bibasilar opacities, right more than left may reflect pulmonary edema, pneumonia, and/or atelectasis. Partially visualized very distended, air-filled bowels concerning for obstruction or ileus. Consider dedicated KUB or CT abdomen pelvis for further evaluation. Reading Location: [facility] Brain CT 11/09/24 16:38 IMPRESSION: No acute intracranial process. Reading Location: [facility] Abdomen/Pelvis CT 11/09/24 17:30 IMPRESSION: 1. Obstructing right ureteral stones with mild hydroureteronephrosis and delayed nephrogram. 2. Right middle lobe ground-glass opacities, which may reflect pneumonitis/developing pneumonia. 3. Diffuse large bowel dilation, which is indeterminate in etiology and may represent ileus or developing bowel obstruction. Progress abdominal radiographs recommended. 4. mild hepatic venous congestion, of indeterminate etiology. Correlation with LFTs and patient history recommended. Reading Location: [facility] Assessment & Plan Assessment/Plan (1) Complicated UTI (urinary tract infection): PLAN: Plan The patient is a 44 y/o F w/ PMHx: Chronic migraines, Current Vaping nicotine usage, Anxiety and Depression/Bipolar disorder/Personality disorder, GERD, Hx VTE, Opiate use disorder, HTN, HLD, IBS, CKD stage II per previous GFR trending, admission of Intermittent Cannabis usage, recent discharge 11/08/24 with recent admission 11/07/24-11/08/24 with CHARLES, hypokalemia, acute encephalopathy and agitation with initial concern for possible self harm with pink slip in the ED; however, she declined SI/homicidal ideations and this was de-escalated given resolution of delirium/confusion with improved renal function with temporary hold on meloxicam and spironolactone who now re-presents to the [facility] [place] ED on 11/09/24 with history of recurrent altered mental status noted to be in the car with a caregiver with recurrent confusion and increased fatigue malaise prompting PCP evaluation reportedly minimally responsive thus referred to the ED again with upon arrival improvement with orientation x 3 but patient was more slow to answer and tangential. #1. Acute Encephalopathy secondary to Acute Complicated UTI with associated hematuria noted on urinalysis with Obstructing right ureteral stones with mild hydroureteronephrosis and delayed nephrogram: Will admit to MS, maintain on aggressive hydration, maintain on IV Rocephin antibiotic therapy, maintain NPO for planned a.m. intervention with urology, consulted and following, maintain on IV PPI, will have oral and IV pain regimen as needed, continue antiemetics as needed. #2. Suspected Acute Ileus, low suspicion pSBO with significant history of chronic constipation with opiate use disorder: CT with no obvious bowel obstruction but likely ileus suspected, bowel movement in the ED just prior to evaluation, will continue to monitor with planned as noted n.p.o. status for planned a.m. intervention with urology, will plan repeat KUB in a.m., continue IV fluids, maintain on IV PPI. #3. Acute right middle lobe groundglass opacities possibly pneumonitis/developing pneumonia: Patient with no overt pulmonary symptoms or complaints but given her recent encephalopathy certainly uncertain, not currently needing any supplemental oxygen however if needed may add, will maintain on IV Rocephin and Azithromycin, HOB, IS parameters w/ pending sputum cultures, full respiratory panel and urine antigens. Bld cx x 2 obtained in the ED. #4. Recent acute kidney injury on CKD stage II per previous GFR trending: Admission BUN/creatinine 15/1.34, GFR 60, recent presentation and admission with initial creatinine on 11/07/2024 3.57 slowly improving and on discharge 11/08/2024 creatinine 1.69, will continue to closely trend with repeat CMP in AM. #5. Normocytic anemia, appears new in chronicity, suspect secondary to associated hematuria: Admission hemoglobin 10.2, MCV 94.9, baseline hemoglobin noted most recently 11/08/2024 hemoglobin 11.2 and previous to this baseline it primarily been 12-13, continue treatment of UTI as noted above as well as planned intervention with urology, continue to trend CBC. #6. Anxiety and Depression/Bipolar disorder/Personality disorder: Will continue patient home chronic psychiatric regimen with hold for sedation and renal dosing/hold for kidney function as needed. #7. Intermittent chronic cannabis usage: Noted per patient, UDS with positive cannabis, other findings likely secondary to chronic home regimen and recent admission with narcotic usage, encourage clean status especially given chronic opiate use history. #8. Hypertension: Continue home regimen including propranolol, clonidine with hold parameters, PRN hydralazine. #9. Hyperlipidemia: Not on regimen, defer to outpatient. #10. Tobacco Abuse: Encouraged cessation, inpatient consultation per RT, NR if desired. #11. History of VTE: Not currently chronically anticoagulated, will maintain on SCDs as noted given planned intervention. #12. GERD: Will maintain IV PPI. #13. DVT prophylaxis: Will maintain on SCDs. Charges/Coding Visit Charges Inpatient E&M: 42583 Init Hosp L3
--- NOTE | 2024-11-09 19:27 | ED.RN ---
delay in ATB d/t issues with obtaining blood cultures and access.
[2024-11-09 20:24] LABS: Troponin T High Sens 2 HR 11 ng/L (<=14)
[2024-11-09 20:30] LABS: International Normalized Ratio 1.1; Prothrombin Time (Protime)PT. 14.9 SECONDS (11.7-14.9)
[2024-11-09 20:31] LABS: Partial Thromboplast Time 33.9 Seconds (24.1-36.2)
[2024-11-09] MEDS: Azithromycin 500 MG in 0.9% Normal Saline (250mL Bag) 250 ML 255 MG IV (21:05)
[2024-11-09] MEDS: 0.9% Normal Saline (1000mL) 1,000 ML 100 ML IV (21:17)
[2024-11-09] MEDS: oxyCODONE 5 MG Tablet PO (21:30)
[2024-11-09] MEDS: Acetaminophen 325 MG Tablet 650 MG PO (21:31)
[2024-11-09] MEDS: Pantoprazole Sodium 40 MG in 0.9% Normal Saline (100mL MB+) 100 ML 330 MG IV (23:12)
[2024-11-10] VITALS (14 sets, daily range): BP systolic 98–140; BP diastolic 72–86; PULSE 86–106; RESP 16–20; TEMP 36.3–37; O2SAT 94–99; BMI 24.0
[2024-11-10] MEDS: Morphine 2 MG/ML Syringe IV ×2 (03:20→06:12)
[2024-11-10] MEDS: Ondansetron 4 MG/2 ML Vial IV (03:30)
--- NOTE | 2024-11-10 05:30 | RAD_ITS ---
PROCEDURE: ABDOMEN SINGLE VIEW (PORTABLE) N/A REASON FOR EXAM: ILEUS TECHNIQUE: ABDOMEN SINGLE VIEW (PORTABLE) COMPARISON: CT scan on 11/09/2024. FINDINGS: Moderate gaseous distention of the colon, slightly increased. Normal visualized lung bases. There is no demonstrated free abdominal air. Normal visualized liver. Normal visualized spleen. Normal visualized kidneys. The soft tissue structures of the pelvis are unremarkable. Normal visualized osseous structures. Spinal stimulator is again noted. RAD/Abdomen Single View (Portable) IMPRESSION: Moderate gaseous distention of the colon, slightly increased. Reading [facility]
[2024-11-10 05:50] LABS: Absolute Lymphocyte Count 1.21 X10^3/uL (0.83-4.51); Absolute Neutrophil Count 5.2 X10^3/uL (2.0-7.7); Basophil# 0.06 X10^3/uL; Basophil% 0.8 % (0-1); Eosinophil# 0.13 X10^3/uL; Eosinophils% 1.7 % (0-5); Hematocrit 31.3 % (37-47); Lymphocyte # 1.21 X10^3/ul (0.83-4.51); Lymphocyte % 16.3 % (19-41); Mean Corp Hgb Conc 31.9 g/dL (32-36); Mean Corpuscular Hgb 29.8 pg (27.0-32.0); Mean Corpuscular Volume 93.2 fL (81-99); Mean Platelet Vol. 10.4 fl (6.2-12.0); Monocyte# 0.72 X10^3/uL; Monocyte% 9.7 % (0-10); NRBC Flagged by Analyzer 0 % (0-5); Neutrophil # 5.23 X10^3/uL (2.7-7.7); Neutrophil % 70.3 % (47-70); Platelet Count 401 K/mm3 (150-450); RBC Distribution Width CV 15.7 % (11.6-14.6); RBC Distribution Width SD 53.7 fl (35.1-43.9); Red Blood Count 3.36 M/mm3 (4.2-5.4); White Blood Count 7.4 K/mm3 (4.4-11.0)
[2024-11-10 06:28] LABS: ALB/GLOB Ratio 1.1 RATIO (0.9-2.4); AST(SGOT) 21 U/L (<=31); Alanine Aminotransfer ALT/SGPT 52 U/L (<=34); Albumin, Serum 3.1 g/dL (3.5-5.0); Alkaline Phosphatase 155 U/L (35-104); Anion Gap 13 (5-15); BUN 14 mg/dL (4-19); BUN/Creat Ratio 12.7 RATIO (10-20); Calcium,Total 8.8 mg/dL (7.6-11.0); Carbon Dioxide 11.1 mmol/L (21.0-32.0); Chloride 121 mmol/L (98-108); Creatinine, Serum 1.09 mg/dL (0.70-1.20); EST Glomerular Filtration Rate 65 (>60); Estimated Creatinine Clearance 71.97 ml/min (50-250); Globulin 2.9 g/dL (2.2-4.2); Glucose 82 mg/dL (70-99); Potassium 3.4 mmol/L (3.3-5.1); Sodium Level 145 mmol/L (133-145); Total Bilirubin 0.34 mg/dL (0.00-1.30)
[2024-11-10 06:44] LABS: Amphetamine Urine NEGATIVE (<1000 ng/mL); Barbiturate Urine NEGATIVE (< 200 ng/mL); Benzodiazepine Urine NEGATIVE (< 200 ng/mL); Buprenorphine Urine NEGATIVE (< 200 ng/mL); Cocaine Urine NEGATIVE (< 300 ng/mL); Fentanyl, Urine NEGATIVE; Methadone Urine NEGATIVE (< 300 ng/mL); Opiates Urine PRESUMPTIVE POSITIVE (< 300 ng/mL); Oxycodone, Urine PRESUMPTIVE POSITIVE (< 100 ng/mL); PCP Urine NEGATIVE (< 25 ng/mL); THC Urine PRESUMPTIVE POSITIVE (< 50 ng/mL)
--- NOTE | 2024-11-10 07:23 | NURSING ---
Pt upset because she couldn't find her 4 vapes or gummies that were in her purse. This rn reassured the patient that this rn didn't look through her purse or take those items.
[2024-11-10] MEDS: lamoTRIgine 100 MG Tablet 200 MG PO (08:10)
[2024-11-10] MEDS: oxyCODONE 5 MG Tablet PO (08:15)
[2024-11-10] MEDS: Pantoprazole Sodium 40 MG in 0.9% Normal Saline (100mL MB+) 100 ML 330 MG IV (08:16)
--- NOTE | 2024-11-10 10:20 | CON.PCM_ITS ---
Assessment & Plan Assessment/Plan (1) Complicated UTI (urinary tract infection): (2) CHARLES (acute kidney injury): (3) Acute flank pain: (4) Ureteral calculus, right: (5) Hydronephrosis, right: PLAN: Plan Continue supportive care IV antibiotic administration, await urine culture results Cystoscopy with right ureteral stent insertion Will plan for ureteroscopy with stone management in the future HPI Consult Data Date of Consult: 11/10/24 HPI Narrative Reason for Consultation: Ureteral stones with hydronephrosis and urinary tract infection HPI Narrative: KARLA LANCE, is a 44 F who has had a recent admission with hypokalemia, encephalopathy, confusion with acute renal insufficiency. She was discharged home and returned to the emergency room with confusion and significant abdominal and right flank pain. She had nausea along with this. At first she thought it was secondary to her chronic constipation but the pain was severe. She denies hematuria, dysuria, fever. There is nausea but no emesis. She has a history of stones and the last procedure with me was in March 2023. She was evaluated with a CT scan and found to have right ureteral stones with hydronephrosis. [facility] Medical History (Updated 11/10/24 @ 10:[address] Krystin Aggarwal MD) Ureteral calculus, right Hydronephrosis, right Vaping nicotine dependence, tobacco product Former smoker Chronic pain Restless legs Loss of hearing Wears glasses Incontinence Back pain History of pain when walking Gastroparalysis Bipolar disorder GERD (gastroesophageal reflux disease) Kidney stones Wears dentures Depression Walker as ambulation aid Arthritis DVT (deep venous thrombosis) Blackout Shortness of breath on exertion Fibromyalgia History of edema History of stress test Opioid use disorder Personality disorder, unspecified Major depressive disorder, recurrent, unspecified HLD (hyperlipidemia) IBS (irritable bowel syndrome) Migraine Insomnia Anxiety panic HTN (hypertension) Home Medications ?Medication ?Instructions ?Recorded ?Last Taken ?Type nortriptyline 50 mg capsule 100 mg PO QHS depression 0 10/13/17 11/12/23 History (Pamelor) propranolol 20 mg tablet 20 mg PO BID HIGH BLOOD PRES SURE 05/03/20 11/12/23 History lamotrigine 200 mg tablet 200 mg PO DAILY MOOD 3 11/12/23 History lorazepam 1 mg tablet 1 mg PO BID PRN anxiety 07/1611/12/23 History tizanidine 4 mg tablet 4 mg PO TID PRN Muscle Pain 08/02/22 11/12/23 History gabapentin 800 mg tablet 800 mg PO TID 10/15/2311/11 History clonidine HCl 0.1 mg tablet 0.2 mg PO QHS BLOOD PRESSU RE 11/13/23 11/12/23 History dicyclomine 10 mg capsule 10 mg PO 4X/DAY PRN ABDOMINA L 11/13/23 11/12/23 History CRAMPS fluorometholone 0.1 % eye 1 drp ophthalmic (eye) BID 0 11/13/23 11/12/23 History drops,suspension hyoscyamine sulfate 0.125 mg 0.125 mg sublingual 4X/DA Y PRN 11/13/23 11/12/23 History disintegrating tablet abdominal discomfort promethazine 25 mg tablet 12.5 - 25 mg PO DAILY PRN na usea 11/13/23 Unknown History and vomiting bupropion HCl 300 mg 24 hr tablet, 300 mg PO DAILY 07/11 Unknown History extended release cariprazine 3 mg capsule (Vraylar) 3 mg PO QHS 4 Unknown History duloxetine 60 mg capsule,delayed 120 mg PO DAILY 04/18 Unknown History release medroxyprogesterone 150 mg/mL 150 mg IM .Q3MO 04/18/24 Unknown History intramuscular syringe quetiapine 50 mg tablet 50 mg PO QHS 04/18/24 Unknow n History ascorbic acid (vitamin C) 1,000 mg 1 g PO DAILY 90 day s #90 tabs 04/22/24 Unknown Rx tablet (Vitamin C) calcium 500 mg (as 1 tab PO DAILY 90 days #90 t abs 04/22/24 Unknown Rx carbonate)-vitamin D3 15 mcg (600 unit) tablet (Os-Alexander 500 + D3) ferrous sulfate 325 mg (65 mg 325 mg PO DAILY SUPPLEME NT #30 tabs 08/08/24 Unknown Rx iron) tablet folic acid 1 mg tablet 1 mg PO DAILY SUPPLEMENT #30 tabs 08/08/24 Unknown Rx lactulose 10 gram/15 mL oral 15 ml PO DAILY CONSTIPATI ON #473 mL 08/08/24 Unknown Rx solution rizatriptan 10 mg tablet 10 mg PO .COMPLEX migraine 0 08/08/24 Unknown Rx headache #9 tabs topiramate 100 mg tablet 100 mg PO BID #60 tabs 08/08 Unknown Rx naproxen 500 mg tablet 500 mg PO BID PRN pain #60 t abs 09/01/24 Unknown Rx acetaminophen 500 mg tablet 500 mg PO Q6H PRN pain Unknown History (Tylenol Extra Strength) ondansetron 8 mg disintegrating 8 mg PO DAILY PRN naus ea and 10/11/24 Unknown History tablet vomiting oxycodone-acetaminophen 10 mg-325 1 tab PO Q6H PRN lisseth n 10/11/24 Unknown History mg tablet (Percocet) meloxicam 7.5 mg tablet 7.5 mg PO BID PRN PRN pain 0 11/09/24 Unknown History spironolactone 25 mg tablet 25 mg PO DAILY 11/09/24 Un known History Allergy/AdvReac Type Severity Reaction Status Date / Time aspirin AdvReac Mild Nausea Verified 10/11/24 14:52 Family History Father Hypertension Heart disease Brother CAD (coronary artery disease) Myocardial infarction Mother Heart disease Myocardial infarction Surgical History Hx of foot surgery Hx of cystoscopy Hx of cystoscopy History of cholecystectomy History of repair of hiatal hernia History of esophagogastroduodenoscopy (EGD) S/P laparoscopic cholecystectomy Social History household members: children Smoking Status: Current every day smoker tobacco type: cigarettes Electronic Cigarette Use: with nicotine alcohol intake: never substance use type: marijuana ROS Constitutional Constitutional: Reports fatigue, frequent falls and headache(s); Denies chills or fever(s) Eyes Eyes: Reports systems reviewed and no addt'l complaints, except as documented ENT HEENT: Reports systems reviewed and no addt'l complaints, except as documented and headache(s) Cardiovascular Cardiovascular: Reports fatigue and nausea; Denies chest pain or vomiting Respiratory/Chest Respiratory/Chest: Denies chest tightness, cough or shortness of breath at rest Gastrointestinal Gastrointestinal: Reports abdominal pain, constipation, cramping, diarrhea and nausea; Denies vomiting Genitourinary Genitourinary: Reports abdominal discomfort; Denies burning urination, difficulty urinating or dysuria Musculoskeletal Musculoskeletal: Reports back pain Integumentary Integumentary: Reports other Details: She has been picking her skin leaving sores Neurologic Neurologic: Reports confusion, frequent falls and headache(s) Psychiatric Psychiatric: Reports anxiety and confusion Endocrine Endocrinology: Reports systems reviewed and no addt'l complaints, except as documented Hematologic/Lymphatic Hematologic/Lymphatic: Reports systems reviewed and no addt'l complaints, except as documented Allergic/Immunologic Allergic/Immunologic: Reports systems reviewed and no addt'l complaints, except as documented Physical Exam Const alert, oriented x3 and no apparent distress Constitutional Narrative: She is currently walking around her patient room with minimal attention to positioning of her Mckeon catheter and IV. She is walking and speaking faster than her baseline. General Appearance: cooperative and anxious HEENT normocephalic, head/scalp atraumatic, hearing grossly normal bilaterally, external ears normal and external nose normal Eyes General Eye: normal appearance of both eyes Neck supple General: normal visual inspection and trachea midline Lymph Lymphatic: no lymphedema noted Lymphatic Narrative: Bilateral SCDs are in place. Chest inspection of chest normal Chest: symmetrical chest wall rise Resp normal respiratory effort, normal air movement and no retractions Effort and Inspection: able to speak in complete sentences and symmetric chest movement Cardio regular rate GI soft to palpation Inspection: abdominal distention Palpation: tender suprapubic Bladder / Kidney Exam: catheter in place urethral (Urine is clear yellow) and CVA tenderness right Back/Spine General Back: CVA tenderness right Extremity Extremity Narrative: She is moving all extremities, walking around the room, wearing bilateral SCDs Skin no petechiae and no mottling Skin Narrative: She has lesions likely secondary to picking especially a large area on her chin. Neuro oriented x3, CN's II-XII intact bilaterally and moves all extremities Psych cooperative Appearance: grossly normal Attitude: agitated Speech: rapid Mood & Affect: anxious Thought Process: normal thought process Lab / Micro Data 11/10/24 05:05 11/10/24 05:05 Labs: Laboratory Results - last 24 hr 11/09/24 16:15: WBC 8.8, RBC 3.51 L, Hgb 10.2 L, Hct 33.3 L, MCV 94.9, MCH 29.1, MCHC 30.6 L D, RDW Std Deviation 54.6 H, RDW Coeff of Raquel 15.7 H, Plt Count 363, MPV 10.1, Immature Gran % (Auto) 2.400 H, Neut % (Auto) 69.5, Lymph % (Auto) 14.9 L, Russell % (Auto) 11.5 H, Eos % (Auto) 1.0, Baso % (Auto) 0.7, Absolute Neuts (auto) 6.1, Absolute Lymphs (auto) 1.32, Nucleated RBC % 0, Sodium 141, Potassium 4.3, Chloride 117 H, Carbon Dioxide 13.7 L, Anion Gap 10, BUN 15, C reatinine 1.34 H, Estim Creat Clear Calc 57.17, Est GFR (MDRD) Non-Af 50 L, BUN/Creatinine Ratio 11.1, Glucose 109 H, Lactic Acid < 1.0, Calcium 9.1, Magnesium 1.8, Total Bilirubin 0.46, AST 21, ALT 63 H, Alkaline Phosphatase 132 H, Troponin T High Sens 11, Total Protein 6.5, Albumin 3.3 L, Globulin 3.1, Albumin/Globulin Ratio 1.1, Ethyl Alcohol < 10.1 11/09/24 16:25: Ammonia 19.5 11/09/24 17:17: Urine Color Yellow, Urine Clarity Cloudy, Urine pH 6.0, Ur Specific [place] 1.010, Urine Protein 100 H, Urine Glucose (UA) Normal, Urine Ketones Negative, Urine Occult Blood 150 H, Urine Nitrite Negative, Urine Bilirubin Negative, Urine Urobilinogen Normal, Ur Leukocyte Esterase 500 H, Urine RBC 5-10 SEEN, Urine WBC 25-50 SEEN, Ur Squamous Epith Cells 0-5 SEEN, Ur Transition Epith Cell 0-5 SEEN, Amorphous Sediment 1+, Urine Bacteria 1+, Urine Mucus 0 SEEN, Urine Test Negative, Urine Opiates Screen NEGATIVE, U Buprenorphine Qual NEGATIVE, Ur Oxycodone Screen PRESUMPTIVE POSITIVE, Urine Methadone Screen NEGATIVE, Urine Fentanyl Screen NEGATIVE, Ur Barbiturates Screen NEGATIVE, Ur Phencyclidine Scrn NEGATIVE, Ur Amphetamines Screen NEGATIVE, U Benzodiazepines Scrn PRESUMPTIVE POSITIVE, Urine Cocaine Screen NEGATIVE, U Cannabinoids Screen PRESUMPTIVE POSITIVE 11/09/24 19:45: PT 14.9, INR 1.1, APTT 33.9, Troponin T Hi Sens 2 Hr 11 11/10/24 04:25: Urine Opiates Screen PRESUMPTIVE POSITIVE, U Buprenorphine Qual NEGATIVE, Ur Oxycodone Screen PRESUMPTIVE POSITIVE, Urine Methadone Screen NEGATIVE, Urine Fentanyl Screen NEGATIVE, Ur Barbiturates Screen NEGATIVE, Ur Phencyclidine Scrn NEGATIVE, Ur Amphetamines Screen NEGATIVE, U Benzodiazepines Scrn NEGATIVE, Urine Cocaine Screen NEGATIVE, U Cannabinoids Screen PRESUMPTIVE POSITIVE 11/10/24 05:05: WBC 7.4, RBC 3.36 L, Hgb 10.0 L, Hct 31.3 L, MCV 93.2, MCH 29.8, MCHC 31.9 L, RDW Std Deviation 53.7 H, RDW Coeff of Raquel 15.7 H, Plt Count 401, MPV 10.4, Immature Gran % (Auto) 1.200 H, Neut % (Auto) 70.3 H, Lymph % (Auto) 16.3 L, Russell % (Auto) 9.7, Eos % (Auto) 1.7, Baso % (Auto) 0.8, Absolute Neuts (auto) 5.2, Absolute Lymphs (auto) 1.21, Nucleated RBC % 0, Sodium 145, Potassium 3.4, Chloride 121 H, Carbon Dioxide 11.1 L, Anion Gap 13, BUN 14, Creatinine 1.09, Estim Creat Clear Calc 71.97, Est GFR (MDRD) Non-Af 65, BUN/Creatinine Ratio 12.7, Glucose 82, Calcium 8.8, Total Bilirubin 0.34, AST 21, ALT 52 H, Alkaline Phosphatase 155 H, Total Protein 6.0, Albumin 3.1 L, Globulin 2.9, Albumin/Globulin Ratio 1.1 Micro: Microbiology 11/09/24 21:10 Mucosa - Nasopharyngeal Respiratory Panel (PCR) - Final 11/09/24 21:00 Nasal Secretion MRSA (PCR) - Final 11/09/24 21:00 Urine Catheter - Mckeon Legionella Antigen - Final 11/09/24 21:00 Urine Catheter - Mckeon Streptococcus pneumoniae Antigen (M - Final Imaging Radiology Impression Chest X-Ray 11/09/24 16:30 IMPRESSION: Bibasilar opacities, right more than left may reflect pulmonary edema, pneumonia, and/or atelectasis. Partially visualized very distended, air-filled bowels concerning for obstruction or ileus. Consider dedicated KUB or CT abdomen pelvis for further evaluation. Reading Location: [facility] Brain CT 11/09/24 16:38 IMPRESSION: No acute intracranial process. Reading Location: [facility] Abdomen/Pelvis CT 11/09/24 17:30 IMPRESSION: 1. Obstructing right ureteral stones with mild hydroureteronephrosis and delayed nephrogram. 2. Right middle lobe ground-glass opacities, which may reflect pneumonitis/developing pneumonia. 3. Diffuse large bowel dilation, which is indeterminate in etiology and may represent ileus or developing bowel obstruction. Progress abdominal radiographs recommended. 4. mild hepatic venous congestion, of indeterminate etiology. Correlation with LFTs and patient history recommended. Reading Location: [facility] KUB X-Ray 11/10/24 05:30 IMPRESSION: Moderate gaseous distention of the colon, slightly increased. Reading [facility]
--- NOTE | 2024-11-10 10:25 | PRE.ANES_ITS ---
ASA Classification* ASA Classification ASA Classification: 3 Assessment & Plan Anesthesia* Anesthesia Assessment Anesthesia Assessment: Discussed sedation and/or anesthesia options, risks, benefits, and alternatives with patient/parents/legal guardian/POA. Questions invited. The patient/parents/legal guardian/POA seems to understand and agrees to proceed with anesthesia plan. Reviewed the physical assessment, medical history, allergy history and patient home medications list prior to surgery/procedure/anesthetic and documented any changes. Performed airway and anesthesia risk assessments. Anesthesia Type Anesthesia Type: MAC History Source History Obtained from:: Patient and Chart Anesthesia Focused Assessment* Temperature: 98.6 F Pulse Rate: 91 Blood Pressure: 121/86 Respiratory Rate: 18 Pulse Ox: 98 Oxygen Delivery Method: Room Air Airway Assessment Mouth opens: >3 cm Mallampati Score: III Teeth Condition: Dentures (Patient has full upper dentures. These will stay in.) and Missing (Patient is edentulous on bottom.) Neck Range of motion (ROM): Full ROM Labs Anesthesia Preop lab: CBC WBC 7.4 K/mm3 (4.4-11.0) 11/10/24 05:05 11/10/24 RBC 3.36 M/mm3 (4.2-5.4) L 11/10/24 05:05 11/10/24 Hgb 10.0 g/dL (12.0-15.0) L 11/10/24 05:05 5 Hct 31.3 % (37-47) L 11/10/24 05:05 11/10/24 Plt Count 401 K/mm3 (150-450) 11/10/24 05:05 11/10/24 CHEMISTRY Potassium 3.4 mmol/L (3.3-5.1) 11/10/24 05:05 11/10/24 Sodium 145 mmol/L (133-145) 11/10/24 05:05 11/10/24 Magnesium 1.8 mg/dL (1.5-2.2) 11/09/24 16:15 11/09/24 BUN 14 mg/dL (4-19) 11/10/24 05:05 11/10/24 Creatinine 1.09 mg/dL (0.70-1.20) 11/10/24 05:05 11/10/24 Glucose 82 mg/dL (70-99) 11/10/24 05:05 11/10/24 TSH 0.497 uIU/mL (0.358-3.740) 03/16/24 11:47 02/17 COAG PT 14.9 SECONDS (11.7-14.9) 11/09/24 19:45 HCG, Quant < 1 mIU/mL (<9 non-preg) 10/13/24 11:25 Urine Test Negative Negative 11/09/24 17:17 11/09/24 Pre-Assessment Diagnosis/Proposed Procedure Planned Operative Procedure(s): Cystoscopy, retrograde pyelograms. Insertion of stents. 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 When Was Last Pacemaker Check QUESTION #4 FULL TEXT: You/Your Family Experience fever (hyperthermia) with Anesthesia Last Oral Intake Last Oral intake: Last Oral Intake NPO since 00:00 11/10/24 06:08 Meds taken in AM with sips of No 11/10/24 06:08 water? 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 therapy aides teacher Female HX of Motion Sickness HX of N/V After Surgery Non-Smoker Duration of Surgery greater than 60 minutes Number of Risk Factors PONV Score Height & Weight Height & Weight: Anesthesia: Height & Weight Height 5 ft 10 in 11/10/24 06:08 Weight: 76 kg 11/10/24 06:08 Body Mass Index (BMI) 24.0 11/10/24 06:08 Respiratory Assessment Respiratory Assessment - occupational therapy aides teacher: Respiratory Tract Infection Hx - occupational therapy aides teacher Hx Respiratory Tract Infection No 11/10/24 06:03 STOP Sleep Apnea STOP Sleep Apnea - occupational therapy aides teacher: STOP Sleep Apnea - occupational therapy aides teacher Hx Hypertension No 11/09/24 20:57 Hx Sleep Apnea No 11/09/24 20:57 CPAP No 11/07/24 15:55 BIPAP No 11/07/24 15:55 Do you snore loudly (louder No 11/09/24 20:57 than talking or can be heard Do you often feel tired/ Yes 11/09/24 20:57 fatigued/ sleepy during daytime? Has anyone observed you stop No 11/09/24 20:57 breathing during sleep? STOP Results Negative 11/09/24 20:57 QUESTION #5 FULL TEXT : Do you snore loudly (louder than talking or can be heard through closed doors)? 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 Specify any problems Hx of Preganancy in last 3 No 11/09/24 20:57 Months Nurse Filling Out Transfusion CSCHLATTE 11/09/24 20:57 & Questions: Date: 11/09/24 11/09/24 20:57 Time: 21:00 11/09/24 20:57 Patient unable to answer at this time (ie. confused, unrespo /Reproduction History /Reproductive History - occupational therapy aides teacher: /Reproductive Hx- occupational therapy aides teacher Hx Now No 11/10/24 06:03 Gestational Age (in weeks): EDC: Hx Hx Para Hx Section SAB No 11/10/24 06:03 Active Medications Active Medications: Current Medications Generic Name Dose Route Start Last Admin Trade Name Freq PRN Reason Stop Dose Admin Acetaminophen 650 mg 11/09/24 20:33 11/09/24 21:31 Acetaminophen 325 Mg Tablet PO 650 mg Q4H PRN PRN Administration Fever, pain 1-02/24 Al Hydroxide/Mg Hydroxide 30 ml 11/09/24 20:33 Mag Hydrox/Al Hydrox/Simeth 30 Ml Udc PO Q6H PRN PRN Gastric Burning Albuterol Sulfate 2.5 mg 11/09/24 20:33 Albuterol 2.5 Mg/3 Ml Vial.Neb. INHALATION Q2H PRN PRN Dyspnea, wheezing Bupropion HCl 300 mg 11/10/24 10:00 Bupropion (Xl) 300 Mg Tablet.Xl PO DAILY [facility] Clarify Med Order 0 each 11/09/24 22:00 11/10/24 06:45 Clarify Order NOTE Not Given CLARIFY [facility] Clonidine 0.2 mg 11/09/24 22:00 11/10/24 00:15 Clonidine Hcl 0.2 Mg Tablet PO Not Given QHS [facility] Protocol Dicyclomine HCl 10 mg 11/09/24 20:33 Dicyclomine 10 Mg Capsule PO 4X/DAY PRN ABDOMINAL CRAMPS Duloxetine HCl 120 mg 11/10/24 10:00 Duloxetine Hcl 60 Mg Capsule PO DAILY [facility] Ferrous Sulfate 325 mg 11/10/24 12:00 Ferrous Sulfate 325 Mg Tablet PO DAILY@1200 [facility] Folic Acid 1 mg 11/10/24 08:00 11/10/24 07:07 Folic Acid 1 Mg Tablet PO Not Given BREAKFAST [facility] Gabapentin 800 mg 11/09/24 22:00 11/10/24 05:43 Gabapentin 800 Mg Tablet PO Not Given TID [facility] Guaifenesin 20 ml 11/09/24 20:33 Guaifenesin 10 Ml Udc (200mg/10ml) PO Q4H PRN PRN COUGH Hydralazine HCl 10 mg 11/09/24 20:33 Hydralazine 20 Mg/Ml Vial IV Q4H PRN PRN SBP > 160 Protocol Hyoscyamine Sulfate 0.125 mg 11/09/24 20:33 Hyoscyamine Sulfate 0.125 Mg Tablet SL 4X/DAY PRN abdominal discomfort Sodium Chloride 1,000 mls @ 100 mls/hr 11/09/24 20:33 11/09/24 21:17 IV 11/10/24 12:14 100 mls/hr .Q10H GENI Administration Azithromycin 500 mg/ Sodium 255 mls @ 255 mls/hr 11/10/24 10:00 Chloride IV Q24 GENI Ceftriaxone Sodium 1 gm in 50 mls @ 100 mls/hr 11/10/24 10:00 Rocephin IV Q24 GENI Pantoprazole Sodium 40 mg/ 100 mls @ 330 mls/hr 11/09/24 22:00 11/10/24 08:16 Sodium Chloride IV 330 mls/hr Q12 GENI Administration Sodium Chloride 250 mls @ 15 mls/hr 11/09/24 20:37 IV .[id number] PRN Saline Flush Sodium Chloride 250 mls @ 15 mls/hr 11/09/24 20:37 IV .[id number] PRN Additional IVPB Infusion Lactulose 10 gm 11/10/24 10:00 Lactulose 20 Gm/30 Ml Udc PO DAILY [facility] Lamotrigine 200 mg 11/10/24 10:00 11/10/24 08:10 Lamotrigine 100 Mg Tablet PO 200 mg DAILY [facility] Administration Melatonin 3 mg 11/09/24 20:33 Melatonin 3 Mg Tablet PO QHS PRN PRN INSOMNIA Morphine Sulfate 2 mg 11/09/24 20:33 11/10/24 06:12 Morphine 2 Mg/Ml Syringe IV 2 mg Q3H PRN PRN Administration Pain Score 6-10 Nicotine 21 mg 11/09/24 21:00 11/10/24 08:16 Nicotine 21 Mg Patch TD 21 mg DAILY GENI Administration Nortriptyline HCl 100 mg 11/09/24 22:00 11/10/24 00:16 Nortriptyline 25 Mg Capsule PO Not Given QHS [facility] Ondansetron HCl 4 mg 11/09/24 20:33 11/10/24 03:30 Ondansetron 4 Mg/2 Ml Vial IV 4 mg Q8H PRN PRN Administration NAUSEA/VOMITING Oxycodone HCl 5 mg 11/09/24 20:33 11/10/24 08:15 Oxycodone 5 Mg Tablet PO 5 mg Q4H PRN PRN Administration Pain Score 4-10 Prochlorperazine Edisylate 5 mg 11/09/24 20:33 Prochlorperazine 10 Mg/2 Ml Vial IV Q4H PRN PRN Breakthrough nausea/vomiting Propranolol HCl 20 mg 11/09/24 22:00 11/10/24 00:15 Propranolol 10 Mg Tablet PO Not Given BID [facility] Quetiapine Fumarate 50 mg 11/09/24 22:00 11/10/24 00:16 Quetiapine 25 Mg Tablet PO Not Given QHS [facility] Senna/Docusate Sodium 2 tablet 11/09/24 20:33 Senna/Docusate Sodium 1 Tablet PO BID PRN PRN Constipation Sodium Chloride 10 - 40 ml 11/09/24 20:37 0.9% Saline Lock 10 Ml Syringe IV UD PRN SALINE FLUSH Topiramate 100 mg 11/09/24 22:00 11/10/24 00:16 Topiramate 100 Mg Tablet PO Not Given BID [facility] PFSH Medical History Ureteral calculus, right Hydronephrosis, right Vaping nicotine dependence, tobacco product Former smoker Chronic pain Restless legs Loss of hearing Wears glasses Incontinence Back pain History of pain when walking Gastroparalysis Bipolar disorder GERD (gastroesophageal reflux disease) Kidney stones Wears dentures Depression Walker as ambulation aid Arthritis DVT (deep venous thrombosis) Blackout Shortness of breath on exertion Fibromyalgia History of edema History of stress test Opioid use disorder Personality disorder, unspecified Major depressive disorder, recurrent, unspecified HLD (hyperlipidemia) IBS (irritable bowel syndrome) Migraine Insomnia Anxiety panic HTN (hypertension) Home Medications ?Medication ?Instructions ?Recorded ?Last Taken ?Type nortriptyline 50 mg capsule 100 mg PO QHS depression 0 10/13/17 11/12/23 History (Pamelor) propranolol 20 mg tablet 20 mg PO BID HIGH BLOOD PRES SURE 05/03/20 11/12/23 History lamotrigine 200 mg tablet 200 mg PO DAILY MOOD 3 11/12/23 History lorazepam 1 mg tablet 1 mg PO BID PRN anxiety 07/1611/12/23 History tizanidine 4 mg tablet 4 mg PO TID PRN Muscle Pain 08/02/22 11/12/23 History gabapentin 800 mg tablet 800 mg PO TID 10/15/2311/11 History clonidine HCl 0.1 mg tablet 0.2 mg PO QHS BLOOD PRESSU RE 11/13/23 11/12/23 History dicyclomine 10 mg capsule 10 mg PO 4X/DAY PRN ABDOMINA L 11/13/23 11/12/23 History CRAMPS fluorometholone 0.1 % eye 1 drp ophthalmic (eye) BID 0 11/13/23 11/12/23 History drops,suspension hyoscyamine sulfate 0.125 mg 0.125 mg sublingual 4X/DA Y PRN 11/13/23 11/12/23 History disintegrating tablet abdominal discomfort promethazine 25 mg tablet 12.5 - 25 mg PO DAILY PRN na usea 11/13/23 Unknown History and vomiting bupropion HCl 300 mg 24 hr tablet, 300 mg PO DAILY 07/11 Unknown History extended release cariprazine 3 mg capsule (Vraylar) 3 mg PO QHS 4 Unknown History duloxetine 60 mg capsule,delayed 120 mg PO DAILY 04/18 Unknown History release medroxyprogesterone 150 mg/mL 150 mg IM .Q3MO 04/18/24 Unknown History intramuscular syringe quetiapine 50 mg tablet 50 mg PO QHS 04/18/24 Unknow n History ascorbic acid (vitamin C) 1,000 mg 1 g PO DAILY 90 day s #90 tabs 04/22/24 Unknown Rx tablet (Vitamin C) calcium 500 mg (as 1 tab PO DAILY 90 days #90 t abs 04/22/24 Unknown Rx carbonate)-vitamin D3 15 mcg (600 unit) tablet (Os-Alexander 500 + D3) ferrous sulfate 325 mg (65 mg 325 mg PO DAILY SUPPLEME NT #30 tabs 08/08/24 Unknown Rx iron) tablet folic acid 1 mg tablet 1 mg PO DAILY SUPPLEMENT #30 tabs 08/08/24 Unknown Rx lactulose 10 gram/15 mL oral 15 ml PO DAILY CONSTIPATI ON #473 mL 08/08/24 Unknown Rx solution rizatriptan 10 mg tablet 10 mg PO .COMPLEX migraine 0 08/08/24 Unknown Rx headache #9 tabs topiramate 100 mg tablet 100 mg PO BID #60 tabs 08/08 Unknown Rx naproxen 500 mg tablet 500 mg PO BID PRN pain #60 t abs 09/01/24 Unknown Rx acetaminophen 500 mg tablet 500 mg PO Q6H PRN pain Unknown History (Tylenol Extra Strength) ondansetron 8 mg disintegrating 8 mg PO DAILY PRN naus ea and 10/11/24 Unknown History tablet vomiting oxycodone-acetaminophen 10 mg-325 1 tab PO Q6H PRN lisseth n 10/11/24 Unknown History mg tablet (Percocet) meloxicam 7.5 mg tablet 7.5 mg PO BID PRN PRN pain 0 11/09/24 Unknown History spironolactone 25 mg tablet 25 mg PO DAILY 11/09/24 Un known History Allergy/AdvReac Type Severity Reaction Status Date / Time aspirin AdvReac Mild Nausea Verified 10/11/24 14:52 Family History Father Hypertension Heart disease Brother CAD (coronary artery disease) Myocardial infarction Mother Heart disease Myocardial infarction Surgical History Hx of foot surgery Hx of cystoscopy Hx of cystoscopy History of cholecystectomy History of repair of hiatal hernia History of esophagogastroduodenoscopy (EGD) S/P laparoscopic cholecystectomy Social History household members: children Smoking Status: Current every day smoker tobacco type: cigarettes Electronic Cigarette Use: with nicotine alcohol intake: never substance use type: marijuana Review of Systems (Anesthesia) ROS Narrative System reviewed and no additional complaints, except as documented.
--- NOTE | 2024-11-10 10:29 | PCM.OPRPT ---
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: No Type of Anesthesia: MAC RN Documented Start/Stop Times: Operation Date: 11/10/24 10:15 Case Time Into Pre-Op 11/10/24 10:20 Out of Pre-Op 11/10/24 10:41 Anesthesia Start 11/10/24 10:46 Into Room 11/10/24 10:46 Procedure Start 11/10/24 11:00 Procedure End 11/10/24 11:05 Procedure Start Time: 11:00 Procedure Stop Time: 11:05 Select all DRAINS/GRAFTS/IMPLANTS that apply: Drains Drain details: 4.5 German by 28 cm JJ stent Estimated Blood Loss: <5cc Specimen collected: No Description of surgery: The patient is a 44-year-old female with a history of kidney stones requiring multiple procedures in the past. She presented to the emergency room with significant abdominal and right flank pain yesterday and was found to have obstructing right ureteral stones and a urinary tract infection. She now presents for cystoscopy with right ureteral stent insertion under anesthesia. Informed consent was obtained. The patient was taken to the operating room and placed on the operating room table. Anesthesia monitored the head, neck, airway, IV access and vital signs throughout the case. Once anesthesia was appropriately ministered, she was placed into dorsolithotomy position was prepped and draped in usual sterile fashion. The cystoscope was inserted through the urethra under direct visualization into the urinary bladder. There were no areas of mucosal abnormality identified site from irritation from the Mckeon catheter. The right ureteral orifice was cannulated with a 0.035 Glidewire. The stone was palpable at the distal ureter, and the wire was slightly difficult to maneuver around it. The wire was then advanced into the renal pelvis is seen on fluoroscopy. A 4.5 German by 28 cm stent was then placed over the wire with good positioning in the renal pelvis as well as the urinary bladder. There is significant amounts of bloody and purulent urine with debris exiting from the ureteral stent. The patient's bladder was then emptied and the cystoscope was removed. She was awakened and taken to the recovery room in good condition. There were no complications during this procedure. Surgical Findings: Purulent urine obtained. Her pain pump since right over the area of the right kidney and fluoroscopy was performed at a slightly lateral view. Complications Complications: No Admit VTE Documentation VTE Present on Admission: Yes VTE Mechan Device Prophylaxis: SCD's VTE Pharm Prophylaxis ordered?: No Reason prophylaxis not ordered: Treatment Not Indicated
[2024-11-10] MEDS: 0.9% Normal Saline (1000mL) 1,000 ML 15 ML IV (10:40)
[2024-11-10] MEDS: Ceftriaxone 1 GM/50 ML BAG IV (10:40)
--- NOTE | 2024-11-10 10:50 | RAD_ITS ---
PROCEDURE: O.R. FLUORO FOR C-ARM 11/10/2024 REASON FOR EXAM: CYSTO/STENT TECHNIQUE: Intraoperative fluoroscopy for cystoscopy and stent placement 2 fluoroscopic images were also obtained. COMPARISON: None. RAD/O.R. Fluoro for C-Arm IMPRESSION: Intraoperative fluoroscopy for cystoscopy and stent placement 2 fluoroscopic im ages were also obtained. Reading Location: [place] [id number]
--- NOTE | 2024-11-10 11:20 | PCM.POST.ANE ---
Anesthesia: Postop Eval I Current Vital Signs Temperature: 97.3 F Pulse Rate: 91 Blood Pressure: 110/79 Respiratory Rate: 20 Pulse Ox: 97 Assessment Airway patent: Yes Spontaneous unlabored respirations: Yes nausea: No Vomiting: No Anesthesia Complication: No Fluid Hydration Crystalloid volume administer (ml): 500 Total IV fluid infused: 500 Progress Note Anesthesia document: Postop Eval 1 completed: Yes
[2024-11-10] MEDS: Azithromycin 500 MG in 0.9% Normal Saline (250mL Bag) 250 ML 255 MG IV (11:35)
[2024-11-10] MEDS: 0.9% Normal Saline (1000mL) 1,000 ML 100 ML IV (12:26)
--- NOTE | 2024-11-10 15:20 | CASEMGMT ---
RN CM readmission note: Index admission: 11/07-11/08: Hypokalemia, HAGMA, Kidney failure. Pt was brought in by squad after neighbor reported her being confused and hallucinating. Upon arrival to ER, pt was delusional and confused. Creatinine was elevated in ER. See Debra KHOURY, psychiatric assessment 11/07. Initially pink slip filled out by ER physician on 11/07. On 11/08, creatinine improved after IVF's. Pt re-evaluated 11/[address] Buckley, who felt pt able to be discharged home. Pt dc'd home 11/08 w/instructions to discontinue spironolactone and meloxicam. Pt to f/u with Dr Giraldo w/in 2 wks. Current admission: 11/09: UTI, Obstructive ureteral stone, ileus RN CM to room to discuss readmission and discharge planning. Pt sitting up on edge of bed, eating meal. RN?CM?introduced self and role at [facility].? Pt voices understanding and consents to?assessment?at this time.? Pt resting in bed in no distress at this time.? Pt is A/O at this time and answers all questions appropriately.?? Care providers, pharmacy, and demographics verified/updated at this time. PCP: Pt states she has scheduled a f/u appt with PCP, Dr Giraldo for 12/08 @ 10 AM. This was added to pt's discharge plan. Specialists: Pt goes to [facility]. Medications/Preferred pharmacy: She states she gets her medication delivered to her home, pre-packaged, through [facility], and she has been taking them. She is aware Spironolactone and meloxicam were to be discontinued. She could not confirm that she stopped taking the spironolactone yet, stating she is not sure if they are in the pre-packaged packs @ home. Pt did confirm that she has a list with each package identifying what medications are in them and that she can look over this closely when she gets home to make sure what is in the medication packs are what she is to be taking @ discharge. Pt would like to get any new medications at discharge from [facility] retail pharmacy. Insurance: [facility] Prescription Benefit: Yes LNOK: Pt has a son, Kenneth (PH: [phone]), who is an only child. Pt states would like him removed from her contact list. She also wishes to have her mother, Beverly Simons (PH: [phone]), removed from her contact list. She states she only wants her aunt, Beth Lloyd (PH: [phone]) listed. She states, if needed, her aunt can reach her son and mother. Contact list in [facility] updated per pt request. Living arrangements: Pt states she lives alone and is independent w/self-care. She states she has a CM, Maribel, through [facility] and that she has a waiver program. She has an aide, Fidelina, that comes to her home M-F for 6-7 hrs a day who assists w/home mgnt tasks. She receives 14 home-delivered meals every 2 wks. Transportation: Pt drives & denies having any transportation concerns. She states her aide will most likely take her home @ dc. DME: pt states she has a shower chair, BSC, cane, high-rise toilet, medical alert. She denies need for further DME. Pt wishes to return home w/resumption of her aide services and states has no concerns with going home at time of discharge.? ?CM?to follow for any further discharge planning/needs.? Pt voices no further concerns/needs at this time.? Advised pt to ask for?CM?if any further questions/concerns/needs arise.? Voices understanding. Plan: Home w/resumption of aide services and CM through [facility]/waiver program. Krystian XAVIERN RN CM
--- NOTE | 2024-11-10 15:30 | CASEMGMT ---
Social Work- IRAIDA called Olegario López at [phone] ext [phone] to coordinate care. IRAIDA left a non-descriptive voicemail requesting a return call. [facility] remains available to follow. CHRISTY Kemp
[2024-11-10] MEDS: Topiramate 100 MG Tablet PO (15:32)
[2024-11-10] MEDS: DULoxetine Hcl 60 MG Capsule 120 MG PO (15:33)
[2024-11-10] MEDS: buPROPion (XL) 300 MG TABLET.XL PO (15:33)
[2024-11-10] MEDS: Propranolol 10 MG Tablet 20 MG PO (15:34)
[2024-11-10] MEDS: Ferrous Sulfate 325 MG Tablet PO (15:34)
[2024-11-10] MEDS: oxyCODONE 5 MG Tablet 10 MG PO (15:46)
--- NOTE | 2024-11-10 16:33 | DCINST_ITS ---
Discharge Instructions Diet Discharge Diet: No restrictions DC O2, CPAP, BIPAP needs Home O2 Discharge instructions: No Dressing / Incision Discharge Activity: Return to Normal Activity Weight Bearing Status: Full weight bearing Follow Up Care Test Results: Test results from this visit will be discussed in further detail at your follow- up appointment, if applicable. Discharge Plan Admission Admit Date/Time: 11/09/24 19:29 Primary Reason for Your Visit: Right ureteral stones with hydronephrosis Attending Provider: Jeyson Buckley Primary Care Provider: Tom Giraldo Consulting Providers: Karen Griffiths; Krystin Aggarwal Discharge Orders/Prescriptions Prescriptions: New levofloxacin 500 mg Tablet 500 mg PO DAILY@0600 Qty: 10 0RF Rx Instructions: Start on 11/11/2024 Continued gabapentin 800 mg tablet 800 mg PO TID ferrous sulfate 325 mg (65 mg iron) tablet 325 mg PO DAILY Qty: 30 7RF folic acid 1 mg tablet 1 mg PO DAILY Qty: 30 7RF lactulose 10 gram/15 mL solution 15 ml PO DAILY Qty: 473 7RF rizatriptan 10 mg tablet 10 mg PO .COMPLEX Qty: 9 7RF Rx Instructions: Take 1 tablet orally every two hours as needed for headache up to three tablets per day topiramate 100 mg tablet 100 mg PO BID Qty: 60 7RF naproxen 500 mg tablet 500 mg PO BID PRN (Reason: pain) Qty: 60 4RF nortriptyline [Pamelor] 50 MG capsule 100 mg PO QHS propranolol 20 MG tablet 20 mg PO BID lamotrigine 200 mg tablet 200 mg PO DAILY tizanidine 4 mg tablet 4 mg PO TID PRN (Reason: Muscle Pain) lorazepam 1 mg tablet 1 mg PO BID PRN (Reason: anxiety) spironolactone 25 mg tablet 25 mg PO DAILY meloxicam 7.5 mg tablet 7.5 mg PO BID PRN PRN (Reason: pain) clonidine HCl 0.1 mg tablet 0.2 mg PO QHS dicyclomine 10 mg capsule 10 mg PO 4X/DAY PRN (Reason: ABDOMINAL CRAMPS) hyoscyamine sulfate 0.125 mg tablet,disintegrating 0.125 mg sublingual 4X/DAY PRN (Reason: abdominal discomfort) promethazine 25 mg tablet 12.5 - 25 mg PO DAILY PRN (Reason: nausea and vomiting) fluorometholone 0.1 % drops,suspension 1 drp ophthalmic (eye) BID bupropion HCl 300 mg tablet extended release 24 hr 300 mg PO DAILY medroxyprogesterone 150 mg/mL syringe 150 mg IM .Q3MO quetiapine 50 mg tablet 50 mg PO QHS Vraylar 3 mg capsule 3 mg PO QHS duloxetine 60 mg capsule,delayed release(DR/EC) 120 mg PO DAILY calcium carbonate-vitamin D3 [Os-Alexander 500 + D3] 500 mg-15 mcg (600 unit) tablet 1 tab PO DAILY 90 Days Qty: 90 0RF ascorbic acid (vitamin C) [Vitamin C] 1,000 mg tablet 1 g PO DAILY 90 Days Qty: 90 0RF acetaminophen [Tylenol Extra Strength] 500 mg tablet 500 mg PO Q6H PRN (Reason: pain) ondansetron 8 mg tablet,disintegrating 8 mg PO DAILY PRN (Reason: nausea and vomiting) oxycodone-acetaminophen [Percocet] 10-325 mg tablet 1 tab PO Q6H PRN (Reason: pain) Referrals / Follow Up: Krystin Aggarwal MD [Med Staff - Active Staff] - See Referral Note (In 2 weeks) Tom Giraldo MD [Primary Care Provider] - 12/08/24 10:00 am (As previously scheduled by pt. ) Disposition Disposition (needs filled in before D/C Order can be placed): Home, Self Care
--- NOTE | 2024-11-10 16:38 | DS.PCM_ITS ---
Providers Date of Admission: 11/09/24 Date of Discharge: 11/10/24 Primary Care Physician: Dr. Tom Giraldo MD Consultations 11/09/24 20:33 Consult: Urology Routine Consulting Provider: Krystin Aggarwal Reason for Consult: Obstructive ureteral calculi w/ hydronephrosis EMERGENT Consult: No MD Notified: Yes Date Notified: 11/09/24 Time Notified: 19:31 Method of Notification: ED Physician Initiated Reason For Visit: UTI, OBSTRUCTIVE URETERAL STONE, ILEUS Diagnosis Discharge Diagnosis (1) Complicated UTI (urinary tract infection): Status: Inactive Code(s): N39.0 - Urinary tract infection, site not specified (2) CHARLES (acute kidney injury): Status: Inactive Code(s): N17.9 - Acute kidney failure, unspecified (3) Acute flank pain: Status: Inactive Code(s): R10.9 - Unspecified abdominal pain (4) Ureteral calculus, right: Status: Inactive Code(s): N20.1 - Calculus of ureter (5) Hydronephrosis, right: Status: Inactive Code(s): N13.30 - Unspecified hydronephrosis Plan Final diagnosis: #1 acute encephalopathy secondary to urinary tract infection #2 obstructing right ureteral stones with mild hydronephrosis on the right #3 anxiety and depression with bipolar disorder #4 essential hypertension #5 hyperlipidemia Pneumonia was ruled out Medications at Discharge Home Medications nortriptyline 50 mg capsule (Pamelor) 100 mg PO QHS depression 10/13/17 propranolol 20 mg tablet 20 mg PO BID HIGH BLOOD PRESSURE 05/03/20 lamotrigine 200 mg tablet 200 mg PO DAILY MOOD 08/02/22 lorazepam 1 mg tablet 1 mg PO BID PRN anxiety 08/02/22 tizanidine 4 mg tablet 4 mg PO TID PRN Muscle Pain 08/02/22 gabapentin 800 mg tablet 800 mg PO TID 10/15/23 clonidine HCl 0.1 mg tablet 0.2 mg PO QHS BLOOD PRESSURE 11/13/23 dicyclomine 10 mg capsule 10 mg PO 4X/DAY PRN ABDOMINAL CRAMPS 11/13/23 fluorometholone 0.1 % eye drops,suspension 1 drp ophthalmic (eye) BID 11/13/23 hyoscyamine sulfate 0.125 mg disintegrating tablet 0.125 mg sublingual 4X/DAY PRN abdominal discomfort 11/13/23 promethazine 25 mg tablet 12.5 - 25 mg PO DAILY PRN nausea and vomiting 11/13/23 bupropion HCl 300 mg 24 hr tablet, extended release 300 mg PO DAILY 04/18/24 cariprazine 3 mg capsule (Vraylar) 3 mg PO QHS 04/18/24 duloxetine 60 mg capsule,delayed release 120 mg PO DAILY 04/18/24 medroxyprogesterone 150 mg/mL intramuscular syringe 150 mg IM .Q3MO 04/18/24 quetiapine 50 mg tablet 50 mg PO QHS 04/18/24 ascorbic acid (vitamin C) 1,000 mg tablet (Vitamin C) 1 g PO DAILY 90 days #90 tabs 04/22/24 calcium 500 mg (as carbonate)-vitamin D3 15 mcg (600 unit) tablet (Os-Alexander 500 + D3) 1 tab PO DAILY 90 days #90 tabs 04/22/24 ferrous sulfate 325 mg (65 mg iron) tablet 325 mg PO DAILY SUPPLEMENT #30 tabs 08/08/24 folic acid 1 mg tablet 1 mg PO DAILY SUPPLEMENT #30 tabs 08/08/24 lactulose 10 gram/15 mL oral solution 15 ml PO DAILY CONSTIPATION #473 mL 08/08/24 rizatriptan 10 mg tablet 10 mg PO .COMPLEX migraine headache #9 tabs 08/08/24 topiramate 100 mg tablet 100 mg PO BID #60 tabs 08/08/24 naproxen 500 mg tablet 500 mg PO BID PRN pain #60 tabs 09/01/24 acetaminophen 500 mg tablet (Tylenol Extra Strength) 500 mg PO Q6H PRN pain 10/11/24 ondansetron 8 mg disintegrating tablet 8 mg PO DAILY PRN nausea and vomiting 10/11/24 oxycodone-acetaminophen 10 mg-325 mg tablet (Percocet) 1 tab PO Q6H PRN pain 10/11/24 meloxicam 7.5 mg tablet 7.5 mg PO BID PRN PRN pain 11/09/24 spironolactone 25 mg tablet 25 mg PO DAILY 11/09/24 levofloxacin 500 mg tablet 500 mg PO DAILY@0600 #10 tabs 11/10/24 Hospital Course Operations None Procedures - (Cystoscopy with right ureteral stent insertion) Summary of Care Provided Minutes Spent on Discharge: 31 Hospital Course: This 44-year-old white female was seen in the emergency room at [facility] with complaints of altered mental status. Patient had been discharged in the hospital the day before, she was in a car with her caregiver when she became confused and fatigued. Patient went to her PCPs office and it was noted that she was confused and minimally responsive so she was sent to the emergency department. On arrival to the ER, patient was alert and oriented x 3. She did not answer any of the review of systems however. Labs showed a normal white blood cell count, hemoglobin was 10.2, chemistry profile was remarkable for creatinine of 1.34, patient's ammonia level was normal, ALT was slightly elevated at 63 and alkaline phosphatase was 132. Urinalysis showed 25-50 WBCs and 5-10 RBCs. There was +1 bacteria in the urine. Patient's talk screen was positive for oxycodone, cannabinoids, and benzodiazepine. Patient's chest x-ray showed bibasilar opacities right more than the left-the etiology of these opacities was unknown. Brain CT showed no acute intracranial process, CT of the abdomen pelvis was obtained that showed obstructing right ureteral stones with mild hydronephrosis on the right. There was noted to be right middle lobe groundglass opacities which could reflect pneumonia although the patient had no signs or symptoms of pneumonia. Diffuse large bowel dilation was noted but patient had no abdominal complaints. Patient was admitted to [place] [address], she was seen by urology who placed a stent in the right ureter. Patient was given IV antibiotics during her hospitalization. On 11/10/2024, patient was seen and examined: On examination she appeared in good health and spirits, she does not appear to be in any distress. Vital signs as documented. Skin warm and dry and without overt rashes. Neck without JVD, thyroid appears normal, trachea is midline, neck is supple. Lungs clear, normal air movement was noted. Heart exam notable for regular rhythm, normal sounds and absence of murmurs, rubs or gallops. Abdomen unremarkable and without evidence of organomegaly, masses, or abdominal aortic enlargement, bowel sounds are present in all 4 quadrants, no abdominal tenderness was noted. Extremities nonedematous, no cyanosis was noted, no clubbing was noted. Neuro: Cranial nerves II through XII are grossly intact, no focal motor deficits were noted, sensation to light touch and pinprick is intact, motor exam 5/5 throughout. Psych: Patient is alert and oriented x3, she does not appear anxious or depressed, she does not appear agitated. Patient appeared stable for discharge home on 11/10/2024. Weight / BMI Weight Weight: 76 kg Body Mass Index (BMI) 24.0 ABG / Lab / Microbiology Data 11/10/24 05:05 11/10/24 05:05 Laboratory: Laboratory Results - last 24 hr 11/09/24 16:15: WBC 8.8, RBC 3.51 L, Hgb 10.2 L, Hct 33.3 L, MCV 94.9, MCH 29.1, MCHC 30.6 L D, RDW Std Deviation 54.6 H, RDW Coeff of Raquel 15.7 H, Plt Count 363, MPV 10.1, Immature Gran % (Auto) 2.400 H, Neut % (Auto) 69.5, Lymph % (Auto) 14.9 L, [place] % (Auto) 11.5 H, Eos % (Auto) 1.0, Baso % (Auto) 0.7, Absolute Neuts (auto) 6.1, Absolute Lymphs (auto) 1.32, Nucleated RBC % 0, Sodium 141, Potassium 4.3, Chloride 117 H, Carbon Dioxide 13.7 L, Anion Gap 10, BUN 15, C reatinine 1.34 H, Estim Creat Clear Calc 57.17, Est GFR (MDRD) Non-Af 50 L, BUN/Creatinine Ratio 11.1, Glucose 109 H, Lactic Acid < 1.0, Calcium 9.1, Magnesium 1.8, Total Bilirubin 0.46, AST 21, ALT 63 H, Alkaline Phosphatase 132 H, Troponin T High Sens 11, Total Protein 6.5, Albumin 3.3 L, Globulin 3.1, Albumin/Globulin Ratio 1.1, Ethyl Alcohol < 10.1 11/09/24 16:25: Ammonia 19.5 11/09/24 17:17: Urine Color Yellow, Urine Clarity Cloudy, Urine pH 6.0, Ur Specific Goldsmith 1.010, Urine Protein 100 H, Urine Glucose (UA) Normal, Urine Ketones Negative, Urine Occult Blood 150 H, Urine Nitrite Negative, Urine Bilirubin Negative, Urine Urobilinogen Normal, Ur Leukocyte Esterase 500 H, Urine RBC 5-10 SEEN, Urine WBC 25-50 SEEN, Ur Squamous Epith Cells 0-5 SEEN, Ur Transition Epith Cell 0-5 SEEN, Amorphous Sediment 1+, Urine Bacteria 1+, Urine Mucus 0 SEEN, Urine Test Negative, Urine Opiates Screen NEGATIVE, U Buprenorphine Qual NEGATIVE, Ur Oxycodone Screen PRESUMPTIVE POSITIVE, Urine Methadone Screen NEGATIVE, Urine Fentanyl Screen NEGATIVE, Ur Barbiturates Screen NEGATIVE, Ur Phencyclidine Scrn NEGATIVE, Ur Amphetamines Screen NEGATIVE, U Benzodiazepines Scrn PRESUMPTIVE POSITIVE, Urine Cocaine Screen NEGATIVE, U Cannabinoids Screen PRESUMPTIVE POSITIVE 11/09/24 19:45: PT 14.9, INR 1.1, APTT 33.9, Troponin T Hi Sens 2 Hr 11 11/10/24 04:25: Urine Opiates Screen PRESUMPTIVE POSITIVE, U Buprenorphine Qual NEGATIVE, Ur Oxycodone Screen PRESUMPTIVE POSITIVE, Urine Methadone Screen NEGATIVE, Urine Fentanyl Screen NEGATIVE, Ur Barbiturates Screen NEGATIVE, Ur Phencyclidine Scrn NEGATIVE, Ur Amphetamines Screen NEGATIVE, U Benzodiazepines Scrn NEGATIVE, Urine Cocaine Screen NEGATIVE, U Cannabinoids Screen PRESUMPTIVE POSITIVE 11/10/24 05:05: WBC 7.4, RBC 3.36 L, Hgb 10.0 L, Hct 31.3 L, MCV 93.2, MCH 29.8, MCHC 31.9 L, RDW Std Deviation 53.7 H, RDW Coeff of Raquel 15.7 H, Plt Count 401, MPV 10.4, Immature Gran % (Auto) 1.200 H, Neut % (Auto) 70.3 H, Lymph % (Auto) 16.3 L, [place] % (Auto) 9.7, Eos % (Auto) 1.7, Baso % (Auto) 0.8, Absolute Neuts (auto) 5.2, Absolute Lymphs (auto) 1.21, Nucleated RBC % 0, Sodium 145, Potassium 3.4, Chloride 121 H, Carbon Dioxide 11.1 L, Anion Gap 13, BUN 14, Creatinine 1.09, Estim Creat Clear Calc 71.97, Est GFR (MDRD) Non-Af 65, BUN/Creatinine Ratio 12.7, Glucose 82, Calcium 8.8, Total Bilirubin 0.34, AST 21, ALT 52 H, Alkaline Phosphatase 155 H, Total Protein 6.0, Albumin 3.1 L, Globulin 2.9, Albumin/Globulin Ratio 1.1 Microbiology: Microbiology 11/09/24 17:17 Urine, Catheterized Urine Culture - Final Enterococcus faecalis 11/09/24 19:45 Blood Culture (Wb) - Anticubital Left Blood Culture - Preliminary No growth in 48 hours. 11/09/24 19:45 Blood Culture (Wb) - Anticubital Right Blood Culture - Preliminary No growth in 48 hours. 11/09/24 21:10 Mucosa - Nasopharyngeal Respiratory Panel (PCR) - Final 11/09/24 21:00 Nasal Secretion MRSA (PCR) - Final 11/09/24 21:00 Urine Catheter - Mckeon Legionella Antigen - Final 11/09/24 21:00 Urine Catheter - Mckeon Streptococcus pneumoniae Antigen (M - Final Radiography Diagnostic Testing: Radiology Impression Chest X-Ray 11/09/24 16:30 IMPRESSION: Bibasilar opacities, right more than left may reflect pulmonary edema, pneumonia, and/or atelectasis. Partially visualized very distended, air-filled bowels concerning for obstruction or ileus. Consider dedicated KUB or CT abdomen pelvis for further evaluation. Reading Location: [facility] Brain CT 11/09/24 16:38 IMPRESSION: No acute intracranial process. Reading Location: [facility] Abdomen/Pelvis CT 11/09/24 17:30 IMPRESSION: 1. Obstructing right ureteral stones with mild hydroureteronephrosis and delayed nephrogram. 2. Right middle lobe ground-glass opacities, which may reflect pneumonitis/developing pneumonia. 3. Diffuse large bowel dilation, which is indeterminate in etiology and may represent ileus or developing bowel obstruction. Progress abdominal radiographs recommended. 4. mild hepatic venous congestion, of indeterminate etiology. Correlation with LFTs and patient history recommended. Reading Location: [id number] KUB X-Ray 11/10/24 05:30 IMPRESSION: Moderate gaseous distention of the colon, slightly increased. Reading Location[facility] C-Arm Fluoroscopy 11/10/24 10:50 IMPRESSION: Intraoperative fluoroscopy for cystoscopy and stent placement 2 fluoroscopic images were also obtained. Reading Location: [place] [address] D/C Instructions Discharge Diet: No restrictions Weight Bearing Status: Full weight bearing DC O2, CPAP, BIPAP Needs Home O2 Discharge instructions: No Meaningful Use Info Meaningful Use Meaningful Use Diagnoses (Choose all that apply): None applicable Ischemic Stroke Statin Dosing Therapy Reference: STATIN DOSE THERAPY REFERENCE: * Patients > 75 years receive moderate or high dose statin therapy. * Patients 75 years or YOUNGER should receive HIGH intensity statin dose unless contraindicated. You will be required to document reason for non-treatment if statin daily dose does not meet guidelines. HIGH DOSE STATIN THERAPY DAILY Atorvastatin > than or = to 40 mg Rosuvastatin > than or = to 20 mg Amlodipine + Atorvastatin > than or = to 2.5/40 mg Ezetimibe + Simvastatin 10/80 mg Simvastatin 80mg Discharge Plan Admission Admit Date/Time: 11/09/24 19:29 Primary Reason for Your Visit: Right ureteral stones with hydronephrosis Attending Provider: Jeyson Buckley Primary Care Provider: Tom Giraldo Consulting Providers: Karen Griffiths; Krystin Aggarwal Discharge Orders/Prescriptions Prescriptions: New levofloxacin 500 mg Tablet 500 mg PO DAILY@0600 Qty: 10 0RF Rx Instructions: Start on 11/11/2024 Continued gabapentin 800 mg tablet 800 mg PO TID ferrous sulfate 325 mg (65 mg iron) tablet 325 mg PO DAILY Qty: 30 7RF folic acid 1 mg tablet 1 mg PO DAILY Qty: 30 7RF lactulose 10 gram/15 mL solution 15 ml PO DAILY Qty: 473 7RF rizatriptan 10 mg tablet 10 mg PO .COMPLEX Qty: 9 7RF Rx Instructions: Take 1 tablet orally every two hours as needed for headache up to three tablets per day topiramate 100 mg tablet 100 mg PO BID Qty: 60 7RF naproxen 500 mg tablet 500 mg PO BID PRN (Reason: pain) Qty: 60 4RF nortriptyline [Pamelor] 50 MG capsule 100 mg PO QHS propranolol 20 MG tablet 20 mg PO BID lamotrigine 200 mg tablet 200 mg PO DAILY tizanidine 4 mg tablet 4 mg PO TID PRN (Reason: Muscle Pain) lorazepam 1 mg tablet 1 mg PO BID PRN (Reason: anxiety) spironolactone 25 mg tablet 25 mg PO DAILY meloxicam 7.5 mg tablet 7.5 mg PO BID PRN PRN (Reason: pain) clonidine HCl 0.1 mg tablet 0.2 mg PO QHS dicyclomine 10 mg capsule 10 mg PO 4X/DAY PRN (Reason: ABDOMINAL CRAMPS) hyoscyamine sulfate 0.125 mg tablet,disintegrating 0.125 mg sublingual 4X/DAY PRN (Reason: abdominal discomfort) promethazine 25 mg tablet 12.5 - 25 mg PO DAILY PRN (Reason: nausea and vomiting) fluorometholone 0.1 % drops,suspension 1 drp ophthalmic (eye) BID bupropion HCl 300 mg tablet extended release 24 hr 300 mg PO DAILY medroxyprogesterone 150 mg/mL syringe 150 mg IM .Q3MO quetiapine 50 mg tablet 50 mg PO QHS Vraylar 3 mg capsule 3 mg PO QHS duloxetine 60 mg capsule,delayed release(DR/EC) 120 mg PO DAILY calcium carbonate-vitamin D3 [Os-Alexander 500 + D3] 500 mg-15 mcg (600 unit) tablet 1 tab PO DAILY 90 Days Qty: 90 0RF ascorbic acid (vitamin C) [Vitamin C] 1,000 mg tablet 1 g PO DAILY 90 Days Qty: 90 0RF acetaminophen [Tylenol Extra Strength] 500 mg tablet 500 mg PO Q6H PRN (Reason: pain) ondansetron 8 mg tablet,disintegrating 8 mg PO DAILY PRN (Reason: nausea and vomiting) oxycodone-acetaminophen [Percocet] 10-325 mg tablet 1 tab PO Q6H PRN (Reason: pain) Referrals / Follow Up: Krystin Aggarwal MD [Med Staff - Active Staff] - See Referral Note (In 2 weeks) Tom Giraldo MD [Primary Care Provider] - 12/08/24 10:00 am (As previously scheduled by pt. ) Disposition Disposition (needs filled in before D/C Order can be placed): Home, Self Care Charges/Coding Visit Charges Inpatient E&M: 20055 Disch Hosp >30min
--- NOTE | 2024-11-10 18:16 | POSTOPAN2_ITS ---
Anesthesia Postop Eval I Sum Postop Eval Completion status Anesthesia document: Postop Eval 1 completed: Yes Anesthesia Postop Eval I Summary Anesthesia Postop Eval I Summary: Anesthesia Postop Eval I: Assessment Summary Airway patent Yes 11/10/24 18:16 CAUSE [email or web address] Spontaneous unlabored Yes 11/10/24 18:16 CAUSE [email or web address] respirations Mental status nausea No 11/10/24 18:16 CAUSE [email or web address] Vomiting No 11/10/24 18:16 CAUSE [email or web address] Anesthesia Postop Eval I: Fluid Summary Crystalloid volume administer 500 11/10/24 18:16 CAUSE [email or web address].CSIR (ml) Colloids volume administered ( ml) Blood Product volume administered (ml) Total IV fluid infused 500 11/10/24 18:16 CAUSE [email or web address] Anesthesia Postop Eval I: Summary Notes Anesthesia Complication No 11/10/24 18:16 [email or web address] [email or web address] Anesthesia Complication Comment: Post-operative progress note Anesthesia: Postop Eval II Evaluation Mental status: Awake Pain Level: 0 nausea: No Vomiting: No
--- NOTE | 2024-11-10 18:16 | PCM.POSTANE2 ---
Anesthesia Postop Eval I Sum Postop Eval Completion status Anesthesia document: Postop Eval 1 completed: Yes Anesthesia Postop Eval I Summary Anesthesia Postop Eval I Summary: Anesthesia Postop Eval I: Assessment Summary Airway patent Yes 11/10/24 18:16 SCREW MACHINE ADJUSTER [email or web address] Spontaneous unlabored Yes 11/10/24 18:16 SCREW MACHINE ADJUSTER [email or web address].CSIR respirations Mental status nausea No 11/10/24 18:16 SCREW MACHINE ADJUSTER [email or web address].CSIR Vomiting No 11/10/24 18:16 SCREW MACHINE ADJUSTER [email or web address].CSIR Anesthesia Postop Eval I: Fluid Summary Crystalloid volume administer 500 11/10/24 18:16 SCREW MACHINE ADJUSTER AUTOMATIC.CSIR (ml) Colloids volume administered ( ml) Blood Product volume administered (ml) Total IV fluid infused 500 11/10/24 18:16 SCREW MACHINE ADJUSTER [email or web address].CSIR Anesthesia Postop Eval I: Summary Notes Anesthesia Complication No 11/10/24 18:16 SCREW MACHINE ADJUSTER AUTOMATIC.CSIR Anesthesia Complication Comment: Post-operative progress note Anesthesia: Postop Eval II Evaluation Mental status: Awake Pain Level: 0 nausea: No Vomiting: No
[2024-11-10] MEDS: Acetaminophen 325 MG Tablet 650 MG PO (18:23)
== END 2024-11-10 18:46 | disposition home or self-care (01) | DRG 463 ==
LOC: ED 16:29 → MS3 20:04
PROVIDERS: Anesthesiology; Urology; Admitting Provider Family Medicine; Emergency Provider Surgery; PCP Family Medicine; Visit Provider Internal Medicine
PROC: 0T768DZ Dilation of Right Ureter with Intraluminal Device, Via Natural or Artificial Opening Endoscopic (ICD-10-PCS; CPT 52332; principal; 2024-11-10 10:05)
DX: N13.6 Pyonephrosis (principal); G93.49 Other encephalopathy; I12.9 Hypertensive chronic kidney disease with stage 1 through stage 4 chronic kidney disease, or unspecified chronic kidney disease; F31.9 Bipolar disorder, unspecified; D64.9 Anemia, unspecified; K56.7 Ileus, unspecified; F60.9 Personality disorder, unspecified; E78.5 Hyperlipidemia, unspecified; I95.9 Hypotension, unspecified; K21.9 Gastro-esophageal reflux disease without esophagitis; F41.9 Anxiety disorder, unspecified; M79.7 Fibromyalgia; F17.290 Nicotine dependence, other tobacco product, uncomplicated; G43.709 Chronic migraine without aura, not intractable, without status migrainosus; N18.2 Chronic kidney disease, stage 2 (mild); K59.09 Other constipation; F12.90 Cannabis use, unspecified, uncomplicated; F11.90 Opioid use, unspecified, uncomplicated; K58.9 Irritable bowel syndrome, unspecified; N17.9 Acute kidney failure, unspecified; Z90.49 Acquired absence of other specified parts of digestive tract; Z86.718 Personal history of other venous thrombosis and embolism; Z79.899 Other long term (current) drug therapy; Z87.442 Personal history of urinary calculi
CPT/HCPCS: 36415; 70450; 71046; 74018; 74177; 76000; 80053; 80307; 81001; 81025; 82077; 82140; 83605; 83735; 84484; 85025; 85610; 85730; 87040; 87077; 87086; 87088; 87186; 87449; 87633; 87641; 93005; 94668; 99285; C1769; C2617; P9612; Q9967; A4216; J2405

== ENCOUNTER 2024-11-12 17:50 | Emergency (ER) | payer MEDICAID, SELFPAY ==
[2024-11-12 17:52] VITALS: BP 106/59; PULSE 84; RESP 16; TEMP 37; O2SAT 100; BMI 23.7
[2024-11-12] MEDS: 0.9% Normal Saline (1000mL) 1,000 ML 1000 ML IV (18:53)
[2024-11-12 18:57] LABS: Hematocrit 29.7 % (37-47); Hemoglobin 9.4 g/dL (12.0-15.0); Mean Corp Hgb Conc 31.6 g/dL (32-36); Mean Corpuscular Hgb 29.1 pg (27.0-32.0); Mean Platelet Vol. 11.4 fl (6.2-12.0); POSITIVE COUNT YES; POSITIVE MORPHOLOGY YES; Platelet Count 371 K/mm3 (150-450); RBC Distribution Width CV 15.4 % (11.6-14.6); RBC Distribution Width SD 51.6 fl (35.1-43.9); Red Blood Count 3.23 M/mm3 (4.2-5.4); White Blood Count 9.3 K/mm3 (4.4-11.0)
[2024-11-12 19:50] LABS: Eosinophil 2 % (0-5); Lymphocyte 36 % (19-41); Metamyelocyte 6 % (0-1); Monocyte 2 % (0-10); Myelocyte 1 % (0-0); Neutrophil-Segmented 53 % (47-70); Total Cells Counted 100 (MANUAL DIFF)
[2024-11-12 19:51] LABS: Anion Gap 13 (5-15); Atypical Lymphocyte RARE %; BUN 8 mg/dL (4-19); BUN/Creat Ratio 7.4 RATIO (10-20); Carbon Dioxide 16.9 mmol/L (21.0-32.0); Chloride 115 mmol/L (98-108); Creatinine, Serum 1.11 mg/dL (0.70-1.20); EST Glomerular Filtration Rate 63 (>60); Estimated Creatinine Clearance 70.67 ml/min (50-250); Glucose 87 mg/dL (70-99); Potassium 3.5 mmol/L (3.3-5.1); Sodium Level 145 mmol/L (133-145)
--- NOTE | 2024-11-12 19:53 | ED.RN ---
pt refusing vital signs. continues to rip off BP cuff, Dr. Goldsmith made aware
[2024-11-12 19:58] LABS: Platelet Estimate ADEQUATE (ADEQ); Polychromasia RARE
[2024-11-12 20:02] LABS: Differential Indicated MANUAL DIFF
[2024-11-12 20:07] LABS: Absolute Lymphocyte Count 3.33 X10^3/uL (0.83-4.51)
[2024-11-12 20:08] LABS: Absolute Neutrophil Count 4.9 X10^3/uL (2.0-7.7); Lymphocyte # 3.33 X10^3/ul (0.83-4.51); Pathologist Review May foll
[2024-11-12 20:25] VITALS: BP 102/61; BP 106/53; BP 88/57; PULSE 78; PULSE 81
--- NOTE | 2024-11-12 20:45 | ED.RN ---
Patient was ambulating to restroom with tech when she fell backwards striking her head on either the crash cart or floor. Patient does not know if she lost her balance or if she passed out. C/O head pain, small hematoma noted to back of head. Dr Goldsmith notified.
--- NOTE | 2024-11-12 20:58 | CT_ITS ---
EXAM: BRAIN/HEAD WITHOUT CONTRAST CLINICAL HISTORY: 44 y/o F with HEAD TRAUMA WITH LOSS OF CONSCIOUSNESS, HEMATOMA COMPARISON: CT head 11/09/2024. TECHNIQUE: Routine CT imaging of the head without IV contrast. Additional multiplanar reformats were obtained. Dose reduction techniques were used including intermediate exposure control (AEC),iterative reconstruction technique, and/or mA and/or KV dose adjustments based on patient's size. FINDINGS: The ventricles, sulci and cisterns are normal for patient age. There is no evidence of acute intracranial hemorrhage or herniation. There is no midline shift, mass effect, or extra-axial collection. Minimal scattered supratentorial white matter hypodensities. The hoang and white matter interfaces are otherwise maintained. The orbits, visualized paranasal sinuses and mastoids are unremarkable. No acute calvarial fracture or scalp hematoma. CT/Brain/Head without Contrast IMPRESSION: No acute intracranial finding. Reading Location: [id number]
[2024-11-12 21:00] VITALS: BP 112/55; PULSE 77; RESP 16; O2SAT 97
--- NOTE | 2024-11-12 21:02 | EKG12_ITS ---
Test Reason : DYSRHYTHMIA Blood Pressure : */* mmHG Vent. Rate : 80 BPM Atrial Rate : 80 BPM P-R Int : 164 ms QRS Dur : 96 ms QT Int : 406 ms P-R-T Axes : 62 25 39 degrees QTcB Int : 468 ms Normal sinus rhythm Normal ECG Confirmed by MOJGAN LAYTON, ONOFRE ([id number]), international editorial producer KYLAH DE LEON ([id number]) on 11/15/2024 11:04:46 AM Referred By: MARY GRACE Confirmed By: ONOFRE ULRICH MD
[2024-11-12 21:05] LABS: Mucous, Urine 0 SEEN /hpf (<or=2+)
[2024-11-12 21:16] LABS: Color, Urine Yellow (Yellow); Glucose, Dipstick Normal (Normal); Ketone-Dipstick 5 mg/dl (Negative); Leukocyte Esterase-Dipstick 500 /ul (Negative); Nitrite-Dipstick Negative (Negative); Occult Blood-Urine 250 /ul (Negative); Protein-Dipstick 100 mg/dl (Negative); Urine Bilirubin Dipstick Negative (Negative); Urine Clarity Sl. Cloudy (Clear); Urine Urobilinogen Normal (Normal)
--- NOTE | 2024-11-12 21:19 | EX.ED.DYSGE1 ---
HPI History of Present Illness Chief Complaint: Confusion Detail of Chief Complaint: Reported confusion. 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 She arrived by EMS because of altered mental status. She complains of pain in the due to a possible fall. Patient is difficult to follow. She does not answer questions directly and then begins to talk about her son and different's symptoms of complaint. There is no flow to her thought process. Patient does have history of bipolar disorder, anxiety disorder, insomnia. She also has history of opiate use disorder. She informing that she normally receives Dilaudid for her pain. Patient was informed based on the history and physical there is no indication for her to receive Dilaudid. Patient denies headache. Denies double vision blurred vision loss of vision. Denies ringing or ears or decreased hearing. She has no trouble with speech or swallowing. She denies chest pain, pressure, tightness or heaviness. Denies pain with breathing. She denies shortness of breath. She denies abdominal pain, nausea, vomiting or diarrhea. She denies urinary symptoms. She was admitted for UTI. Prior similar symptoms: Yes Recent Illness/Hospitalization: [facility] Medical History Complicated UTI (urinary tract infection) Depression Psychosis Acute hypokalemia CHARLES (acute kidney injury) Acute flank pain Ureteral calculus, right Hydronephrosis, right Vaping nicotine dependence, tobacco product Former smoker Chronic pain Restless legs Loss of hearing Wears glasses Incontinence Back pain History of pain when walking Gastroparalysis Bipolar disorder GERD (gastroesophageal reflux disease) Kidney stones Wears dentures Depression Walker as ambulation aid Arthritis DVT (deep venous thrombosis) Blackout Shortness of breath on exertion Fibromyalgia History of edema History of stress test Opioid use disorder Personality disorder, unspecified Major depressive disorder, recurrent, unspecified HLD (hyperlipidemia) IBS (irritable bowel syndrome) Migraine Insomnia Anxiety panic HTN (hypertension) Home Medications ?Medication ?Instructions ?Recorded ?Last Taken ?Type nortriptyline 50 mg capsule 100 mg PO QHS depression 10/13/17 11/12/23 History (Pamelor) propranolol 20 mg tablet 20 mg PO BID HIGH BLOOD PRESSURE 05/03/20 11/12/23 History lamotrigine 200 mg tablet 200 mg PO DAILY MOOD 08/02/22 11/12/23 History lorazepam 1 mg tablet 1 mg PO BID PRN anxiety 08/02/22 11/12/23 History tizanidine 4 mg tablet 4 mg PO TID PRN Muscle Pain 08/02/22 11/12/23 History gabapentin 800 mg tablet 800 mg PO TID 10/15/23 11/12/23 History clonidine HCl 0.1 mg tablet 0.2 mg PO QHS BLOOD PRESSURE 11/13/23 11/12/23 History dicyclomine 10 mg capsule 10 mg PO 4X/DAY PRN ABDOMINAL 11/13/23 11/12/23 History CRAMPS fluorometholone 0.1 % eye 1 drp ophthalmic (eye) BID 11/13/23 11/12/23 History drops,suspension hyoscyamine sulfate 0.125 mg 0.125 mg sublingual 4X/DAY PRN 11/13/23 11/12/23 History disintegrating tablet abdominal discomfort promethazine 25 mg tablet 12.5 - 25 mg PO DAILY PRN nausea 11/13/23 Unknown History and vomiting bupropion HCl 300 mg 24 hr tablet, 300 mg PO DAILY 04/18/24 Unknown History extended release cariprazine 3 mg capsule (Vraylar) 3 mg PO QHS 04/18/24 Unknown History duloxetine 60 mg capsule,delayed 120 mg PO DAILY 04/18/24 Unknown History release medroxyprogesterone 150 mg/mL 150 mg IM .Q3MO 04/18/24 Unknown History intramuscular syringe quetiapine 50 mg tablet 50 mg PO QHS 04/18/24 Unknown History ascorbic acid (vitamin C) 1,000 mg 1 g PO DAILY 90 days #90 tabs 04/22/24 Unknown Rx tablet (Vitamin C) calcium 500 mg (as 1 tab PO DAILY 90 days #90 tabs 04/22/24 Unknown Rx carbonate)-vitamin D3 15 mcg (600 unit) tablet (Os-Alexander 500 + D3) ferrous sulfate 325 mg (65 mg 325 mg PO DAILY SUPPLEMENT #30 tabs 08/08/24 Unknown Rx iron) tablet folic acid 1 mg tablet 1 mg PO DAILY SUPPLEMENT #30 tabs 08/08/24 Unknown Rx lactulose 10 gram/15 mL oral 15 ml PO DAILY CONSTIPATION #473 mL 08/08/24 Unknown Rx solution rizatriptan 10 mg tablet 10 mg PO .COMPLEX migraine 08/08/24 Unknown Rx headache #9 tabs topiramate 100 mg tablet 100 mg PO BID #60 tabs 08/08/24 Unknown Rx naproxen 500 mg tablet 500 mg PO BID PRN pain #60 tabs 09/01/24 Unknown Rx acetaminophen 500 mg tablet 500 mg PO Q6H PRN pain 10/11/24 Unknown History (Tylenol Extra Strength) ondansetron 8 mg disintegrating 8 mg PO DAILY PRN nausea and 10/11/24 Unknown History tablet vomiting oxycodone-acetaminophen 10 mg-325 1 tab PO Q6H PRN pain 10/11/24 Unknown History mg tablet (Percocet) meloxicam 7.5 mg tablet 7.5 mg PO BID PRN PRN pain 11/09/24 Unknown History spironolactone 25 mg tablet 25 mg PO DAILY 11/09/24 Unknown History levofloxacin 500 mg tablet 500 mg PO DAILY@0600 #10 tabs 11/10/24 Unknown Rx Allergy/AdvReac Type Severity Reaction Status Date / Time aspirin AdvReac Mild Nausea Verified 10/11/24 14:52 Family History Father Hypertension Heart disease Brother CAD (coronary artery disease) Myocardial infarction Mother Heart disease Myocardial infarction Surgical History Hx of foot surgery Hx of cystoscopy Hx of cystoscopy History of cholecystectomy History of repair of hiatal hernia History of esophagogastroduodenoscopy (EGD) S/P laparoscopic cholecystectomy Social History household members: children Smoking Status: Current every day smoker tobacco type: cigarettes Electronic Cigarette Use: with nicotine alcohol intake: never substance use type: marijuana ROS ROS ED Constitutional Constitutional ED: Denies chills, fever(s), subjective, sweats or weight loss Eyes Eyes: Denies blurry vision, change in vision or diplopia ENT ENT ED: Denies rhinorrhea or sore throat Cardiovascular Cardiovascular: Denies chest pain, orthopnea, palpitations or paroxysmal nocturnal dyspnea Respiratory/Chest Respiratory/Chest: Denies cough, dyspnea, dyspnea on exertion, orthopnea or paroxysmal nocturnal dyspnea Gastrointestinal Gastrointestinal: Denies abdominal pain, diarrhea, nausea or vomiting Genitourinary Genitourinary ED: Denies dysuria, hematuria or urinary frequency Musculoskeletal Musculoskeletal: Denies arthralgias or myalgias Integumentary Reports Abrasions and other Details: Abrasion left knee. There is also a cristina anterior mid left thigh. This appears to be a scrape with eschar. Neurologic Neurologic: Denies headache(s), paresthesias or weakness Psychiatric Psychiatric: Reports anxiety; Denies depression or suicidal ideation Endocrine Endocrinology: Denies cold intolerance or heat intolerance Hematologic/Lymphatic Hematologic/Lymphatic: Reports systems reviewed and no addt'l complaints, except as documented EXAM Physical Exam Const Vital Signs: 11/12/24 17:52 11/12/24 20:25 11/12/24 21:00 Temperature 98.6 F Temperature Source Oral Pulse Rate 84 77 Pulse Rate [Lying] 78 Pulse Rate [Sitting (for 1 minute prior to obtaining)] 81 Pulse Rate [Standing (for 1 minute prior to obtaining)] 78 Respiratory Rate 16 16 Blood Pressure 106/59 L 112/55 L Blood Pressure [Lying] 106/53 L Blood Pressure [Sitting (for 1 minute prior to obtaining)] 102/61 Blood Pressure [Standing (for 1 minute prior to obtaining)] 88/57 L Blood Pressure Mean 74 74 Blood Pressure Mean [Lying] 70 Blood Pressure Mean [Sitting (for 1 minute prior to obtaining)] 74 Blood Pressure Mean [Standing (for 1 minute prior to obtaining)] 67 Pulse Ox 100 97 Oxygen Delivery Method Room Air Room Air 11/12/24 22:00 Temperature Temperature Source Pulse Rate 74 Pulse Rate [Lying] Pulse Rate [Sitting (for 1 minute prior to obtaining)] Pulse Rate [Standing (for 1 minute prior to obtaining)] Respiratory Rate 20 H Blood Pressure 98/56 L Blood Pressure [Lying] Blood Pressure [Sitting (for 1 minute prior to obtaining)] Blood Pressure [Standing (for 1 minute prior to obtaining)] Blood Pressure Mean 70 Blood Pressure Mean [Lying] Blood Pressure Mean [Sitting (for 1 minute prior to obtaining)] Blood Pressure Mean [Standing (for 1 minute prior to obtaining)] Pulse Ox 93 Oxygen Delivery Method Room Air Positive well nourished and well developed General Appearance ED: well developed and NAD; Negative for pallor HEENT Reports dry mucous membranes HEENT Narrative: Head is atraumatic and normocephalic. Is normal. TMs normal. Nares patent. There is no discharge. Posterior pharynx no erythema or exudate. Mouth ED: Yes dry mucous membranes Mouth: dry mucous membranes Eyes PERRL and EOMs intact bilaterally Eyes Narrative: There is no nystagmus. General Eye ED: Yes pale conjunctiva and scleral icterus Neck no lymphadenopathy, supple and no JVD Chest Wall inspection of chest normal and palpation of chest normal Resp normal respiratory effort and clear to auscultation bilaterally Cardio regular rate, regular rhythm, S1 normal heart sound, S2 normal heart sound and no murmurs GI normal to inspection, nondistended, normoactive bowel sounds, non-tender, non-distended and no masses; Negative for hepatosplenomegaly Back/Spine no CVA tenderness Extremity Extremity Narrative: Abrasion to the left knee. The there is no tenderness to the patella. The patella not ballotable. There is no effusion. Able to extend to 180 degrees and flex to 90 degrees. There is no laxity with varus valgus stress testing. Modified Cinthya Wright's test was negative. Bola's test was negative. DP and PT pulse are palpable. There is no other injury to the left leg. There is a small abraded area with 1 mm of erythema. There is no fluctuance, lymphangitis or inguinal lymphadenopathy. Neuro oriented x3, CN's II-XII intact bilaterally and no sensory deficits noted Sensorium / Orientation: alert Psych Psych Narrative: Patient's speech is pressured. Thought is at times tangential. She denies suicidal homicidal thoughts. Skin no rashes or lesions noted General Skin Exam: Negative for jaundice or pallor Trauma: abrasion MDM MDM MDM Narrative Medical decision making narrative: Will obtain CBC, electrolyte panel and UA. To look for any metabolic or infectious etiology. Otherwise I suspect this is due to hypomania. Clinically she is dehydrated. IV fluids was ordered. She was orthostatic positive. Apparently the ancillary help attempted to help her to go to the restroom when she fell and hit her head. I was informed by charge nurse that she had fallen. She does have evidence of trauma to the occiput. With loss of consciousness CT of the head was obtained. History & Record Review Additional record(s) reviewed:: Prior inpatient record (Recent admission and discharge summary authored by Dr. Cristina Mason), Prior ED visit and Prior labs Lab Data Attestation: I reviewed the patient's lab results. Lab results narrative: CBC reveals mild anemia. Indices are unremarkable. Electrolyte panel reveals a chloride of 115. CO2 is 16 with an anion gap of 13. Review of prior laboratory results indicates the patient has a chronically low carbon dioxide level. The basic metabolic panel is otherwise unremarkable. Labs: Laboratory Results - last 24 hr 11/12/24 11/12/24 18:40 21:00 WBC 9.3 RBC 3.23 L Hgb 9.4 L Hct 29.7 L MCV 92.0 MCH 29.1 MCHC 31.6 L RDW Std Deviation 51.6 H RDW Coeff of Raquel 15.4 H Plt Count 371 MPV 11.4 Neut % (Auto) Not Reportable Absolute Neuts (auto) 4.9 Absolute Lymphs (auto) 3.33 Total Counted 100 Neutrophils % (Manual) 53 Lymphocytes % (Manual) 36 Monocytes % (Manual) 2 Eosinophils % (Manual) 2 Metamyelocytes % 6 H Myelocytes % 1 H Diff Path Review May foll Atypical Lymphocytes RARE Platelet Estimate ADEQUATE Polychromasia RARE Sodium 145 Potassium 3.5 Chloride 115 H Carbon Dioxide 16.9 L Anion Gap 13 BUN 8 Creatinine 1.11 Estim Creat Clear Calc 70.67 Est GFR (MDRD) Non-Af 63 BUN/Creatinine Ratio 7.4 L Glucose 87 Calcium 9.0 Urine Color Yellow Urine Clarity Sl. Cloudy Urine pH 6.0 Ur Specific [place] 1.010 Urine Protein 100 H Urine Glucose (UA) Normal Urine Ketones 5 H Urine Occult Blood 250 H Urine Nitrite Negative Urine Bilirubin Negative Urine Urobilinogen Normal Ur Leukocyte Esterase 500 H Urine RBC > 100 SEEN Urine WBC >100 SEEN Ur Squamous Epith Cells 0-5 SEEN Urine Bacteria 2+ Urine Mucus 0 SEEN Prior urine culture grew only 11,000 25,000 Enterococcus faecalis. This was sensitive levofloxacin. Apparently she did not take her levofloxacin. Radiography Diagnostic Testing: Clinical Impression(s) from Imaging Studies Brain CT 11/12/24 20:58 IMPRESSION: No acute intracranial finding. Reading Location: [facility] CT of the head without contrast reveals an extra cranial hematoma with no fracture. There is no subdural, epidural, subarachnoid hemorrhage or intraparenchymal contusion. Treatment and Re-Evaluation :: I was informed by charge nurse that patient got up to ambulate to the restroom. She apparently passed out hit the ground. She was orthostatic. Because of loss of consciousness significant hematoma on the occiput CT of the head was obtained to evaluate for intracranial bleed. Comments:: Patient received Rocephin in the emergency department. She will be discharged to home. Suspect her altered mental status is due to her psychiatric disorder and not infectious. Discharge Plan Triage Chief Complaint: Confusion ED Provider: Landry Goldsmith Dx/Rx/DC Orders Clinical Impression: Hypomania, Insomnia, Dyslipidemia, Fibromyalgia, HTN (hypertension), Bacteria in urine Instructions: ED Bipolar Disorder Prescriptions: No Action gabapentin 800 mg tablet 800 mg PO TID ferrous sulfate 325 mg (65 mg iron) tablet 325 mg PO DAILY Qty: 30 7RF folic acid 1 mg tablet 1 mg PO DAILY Qty: 30 7RF lactulose 10 gram/15 mL solution 15 ml PO DAILY Qty: 473 7RF rizatriptan 10 mg tablet 10 mg PO .COMPLEX Qty: 9 7RF Rx Instructions: Take 1 tablet orally every two hours as needed for headache up to three tablets per day topiramate 100 mg tablet 100 mg PO BID Qty: 60 7RF naproxen 500 mg tablet 500 mg PO BID PRN (Reason: pain) Qty: 60 4RF nortriptyline [Pamelor] 50 MG capsule 100 mg PO QHS propranolol 20 MG tablet 20 mg PO BID lamotrigine 200 mg tablet 200 mg PO DAILY tizanidine 4 mg tablet 4 mg PO TID PRN (Reason: Muscle Pain) lorazepam 1 mg tablet 1 mg PO BID PRN (Reason: anxiety) spironolactone 25 mg tablet 25 mg PO DAILY meloxicam 7.5 mg tablet 7.5 mg PO BID PRN PRN (Reason: pain) levofloxacin 500 mg Tablet 500 mg PO DAILY@0600 Qty: 10 0RF Rx Instructions: Start on 11/11/2024 clonidine HCl 0.1 mg tablet 0.2 mg PO QHS dicyclomine 10 mg capsule 10 mg PO 4X/DAY PRN (Reason: ABDOMINAL CRAMPS) hyoscyamine sulfate 0.125 mg tablet,disintegrating 0.125 mg sublingual 4X/DAY PRN (Reason: abdominal discomfort) promethazine 25 mg tablet 12.5 - 25 mg PO DAILY PRN (Reason: nausea and vomiting) fluorometholone 0.1 % drops,suspension 1 drp ophthalmic (eye) BID bupropion HCl 300 mg tablet extended release 24 hr 300 mg PO DAILY medroxyprogesterone 150 mg/mL syringe 150 mg IM .Q3MO quetiapine 50 mg tablet 50 mg PO QHS Vraylar 3 mg capsule 3 mg PO QHS duloxetine 60 mg capsule,delayed release(DR/EC) 120 mg PO DAILY calcium carbonate-vitamin D3 [Os-Alexander 500 + D3] 500 mg-15 mcg (600 unit) tablet 1 tab PO DAILY 90 Days Qty: 90 0RF ascorbic acid (vitamin C) [Vitamin C] 1,000 mg tablet 1 g PO DAILY 90 Days Qty: 90 0RF acetaminophen [Tylenol Extra Strength] 500 mg tablet 500 mg PO Q6H PRN (Reason: pain) ondansetron 8 mg tablet,disintegrating 8 mg PO DAILY PRN (Reason: nausea and vomiting) oxycodone-acetaminophen [Percocet] 10-325 mg tablet 1 tab PO Q6H PRN (Reason: pain) Primary Care Provider: Tom Giraldo Referrals: Counseling,Center [Group of Physicians] - As soon as possible Tom Giraldo MD [Primary Care Provider] - 3-5 Days Activity Restrictions/Additional Instructions: You need to take your levofloxacin until gone. Print Language: Vietnamese Disposition Disposition: Home, Self Care
[2024-11-12 21:53] LABS: Bacteria 2+ /hpf (None Seen); Red Blood Cells-Urine > 100 SEEN /hpf (0-5); Squamous Epithelial Cells - UA 0-5 SEEN /hpf (5-10); White Blood Cells >100 SEEN /hpf (0-5)
[2024-11-12 22:00] VITALS: BP 98/56; PULSE 74; RESP 20; O2SAT 93
[2024-11-12 23:00] VITALS: BP 97/68; PULSE 79; RESP 17; O2SAT 95
[2024-11-12] MEDS: Ceftriaxone 2 GM in 0.9% Normal Saline (50mL MB+) 50 ML IV (23:09)
[2024-11-12 23:39] VITALS: BP 105/61; PULSE 85; RESP 18; TEMP 36.4; O2SAT 99
== END 2024-11-13 00:23 | disposition home or self-care (01) ==
PROVIDERS: Emergency Provider Emergency Medicine; PCP Family Medicine; Visit Provider Emergency Medicine
DX: R41.82 Altered mental status, unspecified (principal); F31.9 Bipolar disorder, unspecified; E86.0 Dehydration; M79.7 Fibromyalgia; I10 Essential (primary) hypertension; G47.00 Insomnia, unspecified; F17.210 Nicotine dependence, cigarettes, uncomplicated; F41.9 Anxiety disorder, unspecified; E78.5 Hyperlipidemia, unspecified; Z79.899 Other long term (current) drug therapy; Z90.49 Acquired absence of other specified parts of digestive tract; Y92.231 Patient bathroom in hospital as the place of occurrence of the external cause; W18.39XA Other fall on same level, initial encounter; R82.71 Bacteriuria
CPT/HCPCS: 70450; 80048; 81001; 85025; 87077; 87086; 87088; 87186; 93005; 96361; 96365; 96366; 99285; A4216; J0696

== ENCOUNTER → 2024-11-30 | Outpatient (CLI) | payer MEDICAID, SELFPAY ==
[2024-11-30 18:51] LABS: Anion Gap 10 (5-15); BUN 17 mg/dL (4-19); BUN/Creat Ratio 15.8 RATIO (10-20); Calcium,Total 9.1 mg/dL (7.6-11.0); Carbon Dioxide 22.4 mmol/L (21.0-32.0); Chloride 108 mmol/L (98-108); Glucose 89 mg/dL (70-99); Potassium 3.6 mmol/L (3.3-5.1)
== END | disposition home or self-care (01) ==
LOC: MFPLAB 12-01 13:53
PROVIDERS: PCP Family Medicine; Visit Provider Family Medicine
DX: E87.6 Hypokalemia (principal)
CPT/HCPCS: 36415; 80048

== ENCOUNTER 2024-12-21 11:00 | Outpatient (RCR) | payer MEDICAID, SELFPAY ==
--- NOTE | 2024-09-20 11:58 | HP.PTEVAL_ITS ---
Patient's Visit Information Visit Information Visit Information: KARLA LANCE is a 44 year old F referred to Physical Therapy by Dr. Nithin Miramontes DPM with a diagnosis of PLANTAR FASCITIS BILATERAL. Date of Evaluation: 09/20/24 Physical Therapist: Jacinto Noguera, PT, Cert MDT, OCS Visit Plan Frequency: 2x /Week Duration: 4 Weeks Plan: Patient ambulates with cane ( has ankle brace ) O/5 strength Right ankle PT INTERVENTIONS MANUAL THERAPY GRADE( GENTLE) PLANTAR FASCIA/CALF STM/HAWK ,US AND GENTLE STRETCHING Subjective Subjective: This 44 female presents to physical therapy with plantar fasciitis . Patient has plantar fasciitis right > left since April 2024. Seen Dr recommended PT.Patient had 2 cortisone injections .Patient takes pain gabapentin ,naproxen and percocet. Patient pain located plantar aspect and posterior. Patent has right leg weakness from back issues .Patient did have MRI back and foot. Patient seen for PT for back to include Aquatic therapy. Aggravating factors walking/standing. Patient ambulates with cane has foot drop and has AFO at home .C/O paresthesia/tingling in legs. Patient condition affects QOL/function and gait. Patient goals to decrease pain SOCIAL: single VOCATION: Disability Objective Objective: POSTURE: forward posture ,bilateral pes planus GAIT: ambulates with straight cane on heel antalgic gait with foot drop right foot( has ankle but does not use) NEURO: denies paresthesia/tingling ,reflexes L3-4,L4-5,L5- S1 1/3 PALPATION:(TTP) tender plantar fascia ,calf ,heel FLEXABILITY: calf mild tight MMT: right ankle 0/5 ,left 4-/5 ankle AROM: left ankle 5 degrees dorsiflexion ,eversion 5 ,inversion 35 degrees ,plantarflexion 60 degrees PROPRICEPTION: absent Balance/Special Test Scores Lower Extremity Functional Score: 29 Goals Goal 1:: I with HEP for ex's Goal Time Frame: 4-6 Weeks Goal 2:: Patient to demonstrate 30-40% improvement with function and less pain right >left foot Goal Time Frame: 4-6 Weeks Goal 3:: Patient to ambulate with improved gait pattern with less pain 60% Goal Time Frame: 4-6 Weeks Goal 4:: Patient to improve LFES score by 5 points to improve QOL and function Goal Time Frame: 4-6 Weeks Rehabilitation Potential Physical Therapy Diagnosis: Patient has plantar fasciitis right > left with TTP PF ,heel ,no ankle strength ,walks with drop foot has ankle thus benefit from skilled PT Rehabilitation Potential: Fair Anticipated Interventions Patient/Client Instruction: Educate patient on: Condition and Plan of Care For the Purpose of:: To decrease pain, To increase ROM, To improve muscle performance and motor function, To improve ability to perform ADL's, To increase tolerance to activity/condition/position, To improve ability of physical actions for home/community/work/leisure, To improve health of tissue, To decrease soft tissue restriction, To increase flexibility/ROM and To improve tolerance to ADL's Therapeutic Exercise to Include: Strength training, Endurance training, Flexibilty training and Active ROM Comment: plantar fascia/calf ,ankle For the Purpose of:: To decrease pain, To improve nutrient delivery to tissue, To increase oxygenation perfusion, To improve muscle performance and motor f unction, To increase tolerance to activity/condition/position, To improve ability of physical actions for home/community/work/leisure, To improve health of tissue, To decrease soft tissue restriction, To increase flexibility/ROM, To improve endurance and To improve tolerance to ADL's Manual Therapy Techniques to Include: Soft tissue mobilization Comment: hawk -PF/CALF For the Purpose of:: To decrease pain, To increase ROM, To improve nutrient delivery to tissue, To increase oxygenation perfusion, To improve health of tissue, To decrease soft tissue restriction and To improve tolerance to ADL's Cryotherapy (ice pack, ice massage): Yes Thermo therapy (hot pack): Yes Ultrasound (thermal/non thermal): Yes For the Purpose of:: To decrease pain, To increase ROM, To improve nutrient delivery to tissue and To increase oxygenation perfusion Text: Thank you for the opportunity to evaluate your patient. For Medicare and Medicare HMO plans, please review the plan of care and approve it. It will need to be FAXED BACK to us at [phone] for Medicare purposes. For Medicare only, by signing this I certify the plan of care. Please let me know if there are questions or concerns regarding this plan of care. Physician Signature: Date:
--- NOTE | 2024-12-21 11:14 | HP.PTDCSUM_ITS ---
Discharge Summary D/C summary: It has been my pleasure to treat KARLA LANCE referred by Dr. Nithin Miramontes, DPM, with the diagnosis of PLANTAR FASCITIS BILATERAL for a total of 13 visit(s). Discharge Date: 12/21/24 Please see the following information for a summary of their discharge status. Subjective Subjective: scheduled for surgery right ankle fusion by Dr Miramontes at [facility] [employer] 8 HRS /DAY POST SURGERY Pain Bilat feet: Pain Intensity (Out of 10): 8 Overall Improvement % Improvement: 10 Objective Objective/Function: POSTURE: forward posture ,bilateral pes planus GAIT: ambulates with straight cane on heel antalgic gait with foot drop right foot( has ankle but does not use) NEURO: denies paresthesia/tingling ,reflexes L3-4,L4-5,L5- S1 1/3 PALPATION:(TTP) tender plantar fascia ,calf ,heel FLEXABILITY: calf mild tight MMT: right ankle 2/5 ,left 4-/5 ankle AROM: left ankle 5 degrees dorsiflexion ,eversion 5 ,inversion 35 degrees ,plantarflexion 60 degrees PROPRIOCEPTION: absent Goals Goal 1:: I with [facility] for ex's Goal Progress: Goal Met Goal 2:: Patient to demonstrate 30-40% improvement with function and less pain right >left foot Goal Progress: Goal Met Goal 3:: Patient to ambulate with improved gait pattern with less pain 60% Goal Progress: Goal Met Goal 4:: Patient to improve LFES score by 5 points to improve QOL and function Goal Progress: Goal Met Plan Plan: D/C SCHEDULED FOR ANKLE SURGERY D/C Information Discharge Comments: SCHEDULED FOR ANKLE FUSION THURSDAY d/c sentence: If there are questions or concerns regarding this patient's physical therapy, please feel free to call me at [phone]. Thank you for the referral of this patient. Sincerely, Jacinto Noguera, PT, Cert MDT, OCS Balance/Gait/Functional tests Balance/Special Test Scores Lower Extremity Functional Score: 29 Improvement % Improvement: 10
== END 2024-12-21 19:00 | disposition home or self-care (01) ==
LOC: PT 11:00
PROVIDERS: PCP Family Medicine; Referring Provider Podiatrist Foot & Ankle Surgery; Visit Provider Podiatrist Foot & Ankle Surgery
DX: M72.2 Plantar fascial fibromatosis (principal)
CPT/HCPCS: 36415; 80048; 97035; 97110; 97140; 97162; 97530

== ENCOUNTER 2024-12-26 16:13 | Observation (INO) | payer MEDICAID, SELFPAY ==
[2024-12-16 16:38] LABS: Vitamin D,25 Hydroxy 66.2 ng/mL (30-100)
--- NOTE | 2024-12-23 12:26 | PAT.ANE_ITS ---
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 When Was Last Pacemaker Check QUESTION #4 FULL TEXT: You/Your Family Experience fever (hyperthermia) with Anesthesia Last Oral Intake Last Oral intake: Last Oral Intake NPO since Meds taken in AM with sips of water? 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 Female Yes 12/23/24 08:52 HX of Motion Sickness No 12/23/24 08:52 HX of N/V After Surgery Yes 12/23/24 08:52 Non-Smoker No 12/23/24 08:52 Duration of Surgery greater Yes 12/23/24 08:52 than 60 minutes Number of Risk Factors 3 12/23/24 08:52 PONV Score Moderate Risk 12/23/24 08:52 Height & Weight Height & Weight: Anesthesia: Height & Weight Height 5 ft 10 in 11/24/24 10:08 Respiratory Assessment Respiratory Assessment - vacuum closing machine operator: Respiratory Tract Infection Hx - vacuum closing machine operator Hx Respiratory Tract Infection No 12/23/24 08:52 STOP Sleep Apnea STOP Sleep Apnea - vacuum closing machine operator: STOP Sleep Apnea - vacuum closing machine operator Hx Hypertension Yes: on meds but her bp is 12/23/24 08:52 running very low Hx Sleep Apnea No 12/23/24 08:52 CPAP No 11/10/24 11:14 BIPAP No 11/07/24 15:55 Do you snore loudly (louder No 12/23/24 08:52 than talking or can be heard Do you often feel tired/ No 12/23/24 08:52 fatigued/ sleepy during daytime? Has anyone observed you stop No 12/23/24 08:52 breathing during sleep? STOP Results Negative 12/23/24 08:52 QUESTION #5 FULL TEXT : Do you snore loudly (louder than talking or can be heard through closed doors)? 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 Specify any problems Hx of Preganancy in last 3 No 12/23/24 08:52 Months Nurse Filling Out Transfusion [email or web address] 12/23/24 08:52 & Questions: Date: 12/23/24 12/23/24 08:52 Time: 08:56 12/23/24 08:52 Patient unable to answer at this time (ie. 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: /Reproductive Hx- vacuum closing machine operator Hx Now No 12/23/24 08:52 Gestational Age (in weeks): EDC: Hx Hx Para Hx Section SAB No 12/23/24 08:52 Active Medications Active Medications: Current Medications Generic Name Dose Route Start Last Admin Trade Name Freq PRN Reason Stop Dose Admin Cefazolin Sodium 2 gm/ Sodium 110 mls @ 200 mls/hr 12/26/24 13:00 Chloride IV 12/26/24 13:32 INTRAOP ONE [facility] Medical History (Updated 12/23/24 @ 10:30 by Rosey Martino) Ambulates with cane Marijuana use Flank pain Hydronephrosis Ureteral calculus Bacteria in urine Hypomania Hydronephrosis, right Vaping nicotine dependence, tobacco product Complicated UTI (urinary tract infection) Depression Psychosis Acute hypokalemia CHARLES (acute kidney injury) Former smoker Pain in right leg Short Achilles tendon (acquired), right ankle Chronic pain Hyperammonemia Migraine headache without aura Hypokalemia Radicular pain of both lower extremities Low back pain Polycythemia Hyperglycemia Cervical radiculopathy at C8 Neck pain Restless legs Loss of hearing Wears glasses Incontinence Back pain History of pain when walking Gastroparalysis Bipolar disorder Stenosis of celiac artery Acute flank pain Bilateral edema of lower extremity Ureteral calculus, right GERD (gastroesophageal reflux disease) Urinary tract infection Kidney stones Wears dentures Depression Walker as ambulation aid Arthritis DVT (deep venous thrombosis) Blackout Shortness of breath on exertion Fibromyalgia History of edema History of stress test Decreased urine output Opioid use disorder Personality disorder, unspecified Major depressive disorder, recurrent, unspecified HLD (hyperlipidemia) Chronic back pain Chronic lumbar disc degeneration Dyslipidemia IBS (irritable bowel syndrome) Migraine Insomnia Anxiety panic HTN (hypertension) Home Medications ?Medication ?Instructions ?Recorded ?Last Taken ?Type nortriptyline 50 mg capsule 100 mg PO QHS depression 0 10/13/17 11/12/23 History (Pamelor) propranolol 20 mg tablet 20 mg PO BID HIGH BLOOD PRES SURE 05/03/20 11/12/23 History lamotrigine 200 mg tablet 200 mg PO DAILY MOOD 3 11/12/23 History lorazepam 1 mg tablet 0.5 mg PO BID PRN anxiety 11/12/23 History tizanidine 4 mg tablet 4 mg PO TID PRN Muscle Pain 08/02/22 11/12/23 History gabapentin 800 mg tablet 800 mg PO TID 10/15/2311/11 History clonidine HCl 0.1 mg tablet 0.2 mg PO QHS BLOOD PRESSU RE 11/13/23 11/12/23 History fluorometholone 0.1 % eye 1 drp ophthalmic (eye) BID 0 11/13/23 11/12/23 History drops,suspension promethazine 25 mg tablet 12.5 - 25 mg PO DAILY PRN na usea 11/13/23 Unknown History and vomiting cariprazine 3 mg capsule (Vraylar) 3 mg PO QHS 4 Unknown History duloxetine 60 mg capsule,delayed 120 mg PO DAILY 04/18 Unknown History release medroxyprogesterone 150 mg/mL 150 mg IM .Q3MO 04/18/24 Unknown History intramuscular syringe ferrous sulfate 325 mg (65 mg 325 mg PO DAILY SUPPLEME NT #30 tabs 08/08/24 Unknown Rx iron) tablet folic acid 1 mg tablet 1 mg PO DAILY SUPPLEMENT #30 tabs 08/08/24 Unknown Rx lactulose 10 gram/15 mL oral 15 ml PO DAILY CONSTIPATI ON #473 mL 08/08/24 Unknown Rx solution rizatriptan 10 mg tablet 10 mg PO .COMPLEX migraine 0 08/08/24 Unknown Rx headache #9 tabs topiramate 100 mg tablet 100 mg PO BID #60 tabs 08/08 Unknown Rx naproxen 500 mg tablet 500 mg PO BID PRN pain #60 t abs 09/01/24 Unknown Rx acetaminophen 500 mg tablet 500 mg PO Q6H PRN pain Unknown History (Tylenol Extra Strength) oxycodone-acetaminophen 10 mg-325 1 tab PO Q6H PRN lisseth n 10/11/24 Unknown History mg tablet (Percocet) spironolactone 25 mg tablet 25 mg PO DAILY 11/09/24 Un known History nitrofurantoin 100 mg PO BID #20 caps 12/22 Unknown Rx monohydrate/macrocrystals 100 mg capsule (Macrobid) bupropion HCl 150 mg tablet,12 hr 150 mg PO 12/23/24 U nknown History sustained-release quetiapine 100 mg tablet 100 mg PO QHS 12/23/24 Unkno wn History Allergy/AdvReac Type Severity Reaction Status Date / Time aspirin AdvReac Mild Nausea Verified 12/23/24 08:29 Family History Father Hypertension Heart disease Brother CAD (coronary artery disease) Myocardial infarction Mother Heart disease Myocardial infarction Surgical History Hx of foot surgery Hx of cystoscopy Hx of cystoscopy History of cholecystectomy History of repair of hiatal hernia History of esophagogastroduodenoscopy (EGD) S/P laparoscopic cholecystectomy Social History household members: children Smoking Status: Current every day smoker tobacco type: e-cigarettes Electronic Cigarette Use: with nicotine alcohol intake: never substance use type: marijuana Audit: Pertinent Findings Pertinent Findings EKG Perinent findings: November 12, 2024. Normal sinus rhythm. Stress test pertinent findings: 07/28/2018. EF of 71%. Normal myocardial perfusion stress test. Recommendation Anesthesia Recommendation Anesthesia recommendation: OPTIMIZED for anesthesia (Magnesium level does not need to be redone.)
[2024-12-26] VITALS (15 sets, daily range): BP systolic 93–126; BP diastolic 45–100; PULSE 68–99; RESP 16–20; TEMP 36.2–36.6; O2SAT 91–100; BMI 22.1
[2024-12-26 11:40] LABS: Internal QC Validated? YES +Cl - CLEAR BKGD; Pregnancy, Urine Negative Negative; Record Kit Lot#,Urine Preg 0000947241
[2024-12-26] MEDS: Lactated Ringers 1,000 ML 15 ML IV (12:14)
[2024-12-26] MEDS: Magnesium 2 GM for ERAS IV (12:15)
--- NOTE | 2024-12-26 12:34 | PCM.PRE.AN2 ---
ASA Classification* ASA Classification ASA Classification: 3 Assessment & Plan Anesthesia* Anesthesia Assessment Anesthesia Assessment: Discussed sedation and/or anesthesia options, risks, benefits, and alternatives with patient/parents/legal guardian/POA. Questions invited. The patient/parents/legal guardian/POA seems to understand and agrees to proceed with anesthesia plan. Reviewed the physical assessment, medical history, allergy history and patient home medications list prior to surgery/procedure/anesthetic and documented any changes. Performed airway and anesthesia risk assessments. Anesthesia Type Anesthesia Type: General History Source History Obtained from:: Patient and Chart Anesthesia Focused Assessment* Temperature: 97.2 F Pulse Rate: 69 Blood Pressure: 116/61 Respiratory Rate: 16 Pulse Ox: 100 Oxygen Delivery Method: Room Air Airway Assessment Mouth opens: >3 cm Mallampati Score: III Teeth Condition: Dentures and Full Neck Range of motion (ROM): Full ROM Labs Anesthesia Preop lab: CBC WBC 9.3 K/mm3 (4.4-11.0) 11/12/24 18:40 11/12/24 RBC 3.23 M/mm3 (4.2-5.4) L 11/12/24 18:40 11/12/24 Hgb 9.4 g/dL (12.0-15.0) L 11/12/24 18:40 11/12/24 Hct 29.7 % (37-47) L 11/12/24 18:40 11/12/24 Plt Count 371 K/mm3 (150-450) 11/12/24 18:40 11/12/24 CHEMISTRY Potassium 3.6 mmol/L (3.3-5.1) 11/30/24:11/30/24 Sodium 140 mmol/L (133-145) 11/30/24 15:11/30/24 Magnesium 1.8 mg/dL (1.5-2.2) 11/09/24 16:15 11/09/24 BUN 17 mg/dL (4-19) 11/30/24 15:11/30/24 Creatinine 1.06 mg/dL (0.70-1.20) 11/30/24 15:11/30/24 Glucose 89 mg/dL (70-99) 11/30/24 15:11/30/24 POC Glucose 90 mg/dL (74-106) 12/26/24 11:29 12/26/24 TSH 0.497 uIU/mL (0.358-3.740) 03/16/24 11:47 03/16/24 COAG PT 14.9 SECONDS (11.7-14.9) 11/09/24 19:45 11/09/24 HCG, Quant < 1 mIU/mL (<9 non-preg) 10/13/24 11:25 10/13/24 Urine Test Negative Negative 12/26/24 11:07 12/26/24 Pre-Assessment Diagnosis/Proposed Procedure Planned Operative Procedure(s): RIGHT ankle arthrodesis Anesthesia History 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 When Was Last Pacemaker Check QUESTION #4 FULL TEXT: You/Your Family Experience fever (hyperthermia) with Anesthesia Any additional information?: No Last Oral Intake Last Oral intake: Last Oral Intake NPO since 21:00 12/26/24 11:37 Meds taken in AM with sips of No 12/26/24 11:37 water? 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 Female Yes 12/23/24 08:52 HX of Motion Sickness No 12/23/24 08:52 HX of N/V After Surgery Yes 12/23/24 08:52 Non-Smoker No 12/23/24 08:52 Duration of Surgery greater Yes 12/23/24 08:52 than 60 minutes Number of Risk Factors 3 12/23/24 08:52 PONV Score Moderate Risk 12/23/24 08:52 Any additional information?: No Height & Weight Height & Weight: Anesthesia: Height & Weight Height 5 ft 9 in 12/26/24 11:37 Weight: 68 kg 12/26/24 11:37 Body Mass Index (BMI) 22.1 12/26/24 11:37 Respiratory Assessment Respiratory Assessment - digital print operator: Respiratory Tract Infection Hx - digital print operator Hx Respiratory Tract Infection No 12/23/24 08:52 Any additional information?: No STOP Sleep Apnea STOP Sleep Apnea - digital print operator: STOP Sleep Apnea - digital print operator Hx Hypertension Yes: on meds but her bp is 12/23/24 08:52 running very low Hx Sleep Apnea No 12/23/24 08:52 CPAP No 11/10/24 11:14 BIPAP No 11/07/24 15:55 Do you snore loudly (louder No 12/23/24 08:52 than talking or can be heard Do you often feel tired/ No 12/23/24 08:52 fatigued/ sleepy during daytime? Has anyone observed you stop No 12/23/24 08:52 breathing during sleep? STOP Results Negative 12/23/24 08:52 QUESTION #5 FULL TEXT : Do you snore loudly (louder than talking or can be heard through closed doors)? 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 Specify any problems Hx of Preganancy in last 3 No 12/23/24 08:52 Months Nurse Filling Out Transfusion ENMA 12/23/24 08:52 & Questions: Date: 12/23/24 12/23/24 08:52 Time: 08:56 12/23/24 08:52 Patient unable to answer at this time (ie. confused, unrespo Any additional information?: No /Reproduction History /Reproductive History - digital print operator: /Reproductive Hx- digital print operator Hx Now No 12/23/24 08:52 Gestational Age (in weeks): EDC: Hx Hx Para Hx Section SAB No 12/23/24 08:52 Any additional information?: No Active Medications Active Medications: Current Medications Generic Name Dose Route Start Last Admin Trade Name Daniel PRN Reason Stop Dose Admin Cefazolin Sodium 2 gm/ Sodium 110 mls @ 200 mls/hr 12/26/24 13:00 Chloride IV 12/26/24 13:32 INTRAOP ONE Lactated Ringer's 1,000 mls @ 15 mls/hr 12/26/24 11:15 12/26/24 12:14 IV 15 mls/hr .Q48H GENI Administration PFSH Medical History Ambulates with cane Marijuana use Flank pain Hydronephrosis Ureteral calculus Bacteria in urine Hypomania Hydronephrosis, right Vaping nicotine dependence, tobacco product Complicated UTI (urinary tract infection) Depression Psychosis Acute hypokalemia CHARLES (acute kidney injury) Former smoker Pain in right leg Short Achilles tendon (acquired), right ankle Chronic pain Hyperammonemia Migraine headache without aura Hypokalemia Radicular pain of both lower extremities Low back pain Polycythemia Hyperglycemia Cervical radiculopathy at C8 Neck pain Restless legs Loss of hearing Wears glasses Incontinence Back pain History of pain when walking Gastroparalysis Bipolar disorder Stenosis of celiac artery Acute flank pain Bilateral edema of lower extremity Ureteral calculus, right GERD (gastroesophageal reflux disease) Urinary tract infection Kidney stones Wears dentures Depression Walker as ambulation aid Arthritis DVT (deep venous thrombosis) Blackout Shortness of breath on exertion Fibromyalgia History of edema History of stress test Decreased urine output Opioid use disorder Personality disorder, unspecified Major depressive disorder, recurrent, unspecified HLD (hyperlipidemia) Chronic back pain Chronic lumbar disc degeneration Dyslipidemia IBS (irritable bowel syndrome) Migraine Insomnia Anxiety panic HTN (hypertension) Home Medications ?Medication ?Instructions ?Recorded ?Last Taken ?Type nortriptyline 50 mg capsule 100 mg PO QHS depression 10/13/17 11/12/23 History (Pamelor) propranolol 20 mg tablet 20 mg PO BID HIGH BLOOD PRESSURE 05/03/20 11/12/23 History lamotrigine 200 mg tablet 200 mg PO DAILY MOOD 08/02/22 11/12/23 History lorazepam 1 mg tablet 0.5 mg PO BID PRN anxiety 08/02/22 11/12/23 History tizanidine 4 mg tablet 4 mg PO TID PRN Muscle Pain 08/02/22 11/12/23 History gabapentin 800 mg tablet 800 mg PO TID 10/15/23 12/25/24 History clonidine HCl 0.1 mg tablet 0.2 mg PO QHS BLOOD PRESSURE 11/13/23 11/12/23 History fluorometholone 0.1 % eye 1 drp ophthalmic (eye) BID 11/13/23 11/12/23 History drops,suspension promethazine 25 mg tablet 12.5 - 25 mg PO DAILY PRN nausea 11/13/23 Unknown History and vomiting cariprazine 3 mg capsule (Vraylar) 3 mg PO QHS 04/18/24 Unknown History duloxetine 60 mg capsule,delayed 120 mg PO DAILY 04/18/24 Unknown History release medroxyprogesterone 150 mg/mL 150 mg IM .Q3MO 04/18/24 Unknown History intramuscular syringe ferrous sulfate 325 mg (65 mg 325 mg PO DAILY SUPPLEMENT #30 tabs 08/08/24 Unknown Rx iron) tablet folic acid 1 mg tablet 1 mg PO DAILY SUPPLEMENT #30 tabs 08/08/24 Unknown Rx lactulose 10 gram/15 mL oral 15 ml PO DAILY CONSTIPATION #473 mL 08/08/24 Unknown Rx solution rizatriptan 10 mg tablet 10 mg PO .COMPLEX migraine 08/08/24 Unknown Rx headache #9 tabs topiramate 100 mg tablet 100 mg PO BID #60 tabs 08/08/24 Unknown Rx naproxen 500 mg tablet 500 mg PO BID PRN pain #60 tabs 09/01/24 Unknown Rx acetaminophen 500 mg tablet 500 mg PO Q6H PRN pain 10/11/24 Unknown History (Tylenol Extra Strength) oxycodone-acetaminophen 10 mg-325 1 tab PO Q6H PRN pain 10/11/24 Unknown History mg tablet (Percocet) spironolactone 25 mg tablet 25 mg PO DAILY 11/09/24 Unknown History nitrofurantoin 100 mg PO BID #20 caps 12/22/24 Unknown Rx monohydrate/macrocrystals 100 mg capsule (Macrobid) bupropion HCl 150 mg tablet,12 hr 150 mg PO 12/23/24 Unknown History sustained-release quetiapine 100 mg tablet 100 mg PO QHS 12/23/24 Unknown History Allergy/AdvReac Type Severity Reaction Status Date / Time aspirin AdvReac Mild Nausea Verified 12/26/24 11:30 Family History Father Hypertension Heart disease Brother CAD (coronary artery disease) Myocardial infarction Mother Heart disease Myocardial infarction Surgical History Hx of foot surgery Hx of cystoscopy Hx of cystoscopy History of cholecystectomy History of repair of hiatal hernia History of esophagogastroduodenoscopy (EGD) S/P laparoscopic cholecystectomy Social History household members: children Smoking Status: Current every day smoker tobacco type: cigarettes Electronic Cigarette Use: with nicotine alcohol intake: never substance use type: marijuana Review of Systems (Anesthesia) ROS Narrative System reviewed and no additional complaints, except as documented.
[2024-12-26] MEDS: Cefazolin 1 GM/5 ML Vial 2 GM IV (13:15)
--- NOTE | 2024-12-26 13:16 | PCM.OPRPT ---
Problems Associated Problem List Diagnoses (1) Pain in right lower leg: (2) Foot drop, right foot: Operative Report (Standard) Operative Information Date of Procedure: 12/26/24 Pre-Operative Diagnosis: 1. Pain, right lower extremity 2. Foot drop, right lower extremity Post-Operative Diagnosis: Same as preoperative diagnosis Surgery/Procedure Performed: Procedure #1: Ankle arthrodesis, right lower extremity employee relations consultant: Yes Housekeeper And Laundry Assistant: Jenifer Lawrence, PGY3 Tasks completed by entry level assistant manager: Opening, Closing, Implanting device and Retracting Type of Anesthesia: General/Regional RN Documented Start/Stop Times: Operation Date: 12/26/24 13:00 Case Time Into Pre-Op 12/26/24 11:11 Out of Pre-Op 12/26/24 12:59 Anesthesia Start 12/26/24 13:15 Into Room 12/26/24 13:15 Procedure Start 12/26/24 13:41 Procedure End 12/26/24 15:58 Anesthesia End 12/26/24 16:03 Out of Room 12/26/24 16:03 Into Recovery 12/26/24 16:05 Procedure Start Time: 13:41 Procedure Stop Time: 15:58 Select all DRAINS/GRAFTS/IMPLANTS that apply: Graft Graft details: 5 cc via flow, 3 cc augment and Implanted device Implanted device details: Atul anterior ankle plate with a combination of locking and nonlocking screws Special Medications: Per anesthesia Estimated Blood Loss: 30 mL Fluids Replaced: For anesthesia Specimen collected: No Description of surgery: Indications For Operation: Ms. Diaz is a 44-year-old female who was admitted to [facility] for right lower extremity ankle surgery. Patient is well-known to my office since been treated conservatively for the past 2 years regarding the dropfoot right greater than left. Due to the failed conservative treatment we discussed surgical intervention consisting of either tendon transfers and or ankle arthrodesis. After the patient failed conservative treatment consisting of sugar modification, bracing, dorsiflexor assist bracing, solid AFOs and using a cam boot. As discussed above we discussed soft tissue procedures versus fusion surgery, due to the patient having a muscle strength of 2 out of 5 in the posterior tibial tendon I discussed with the patient that she would most likely have limited movement in the ankle especially with the soft tissue transfer and she opted to move forward with ankle fusion. We had formal surgical consultation in the office with chart review and consent signed. All risk and benefits were discussed with the patient in great detail. Due to worsening dropfoot in the right lower extremity it was deemed necessary at this time to take the patient operating room perform the above procedure to help get the patient back on her feet and reduce her constant pain.. The nature of the problem, anticipated procedures, postop recovery/convalences and risk/complications include but not limited to infection, wound healing complications, digital amputation, hypertrophic scarring, numbness, tingling, chronic pain, CRPS, over and under correction, recurrence of deformity, DVT and or PE and the need for further surgery have been discussed in great detail with the patient. All questions have been answered to the patient's satisfaction. There are no guarantees given as to the outcome of the procedure. Description of Procedure: Under mild sedation, the patient was brought into the operating room and placed on the operating table in supine position. Once the patient was under general anesthesia with [place] mask airway, the right lower extremity was blocked using approximately 10 cc 0.5% Marcaine plain to the saphenous nerve. Prior to the procedure the patient received a popliteal block by anesthesia in the PACU before the case please see anesthesia notes for further detail. Next, a well-padded thigh tourniquet was applied to the right lower extremity. Patient did receive a Mckeon catheter with order given to discharge at the end of the procedure. Next, the right lower extremity was prepped and draped in normal aseptic manner. Next, a timeout was then undertaken verifying the correct patient, extremity, visibility of preoperative markings, availability of the equipment. Next, attention was directed to the right lower extremity. Using a 4 Esmarch, right lower extremity was exsanguinated and elevated to 60 degrees for 1 minute. Procedure #1: Ankle arthrodesis, right lower extremity (CPT code: 28901) Next, attention was directed to the right ankle. Using large C-arm fluoroscopy the ankle joint was marked out as well as the medial and lateral ankle gutters with sterile skin marker. Next, using a #15 blade a full-thickness incision down to subcutaneous tissue was made approximately 3 fingerbreadths above and below the ankle joint. Care was taken to mind the superficial nerves. Using a wet Ray-Nick continued blunt dissection was carried through the subcutaneous layer. Retraction was applied to the deep layer and continued sharp dissection was carried down to the level of the retinaculum over the extensor hallucis longus. Next using Metzenbaum scissors blunt dissection was carried down and around the extensor hallucis longus tendon until the neurovascular structure was observed. Care was taken to retract all of the neurovascular bundle as well as the extensor hallucis longus tendon laterally and the anterior tibialis tendon medially. Once retraction was obtained, #15 blade was used to make the ankle arthrotomy through the existing incision. The right ankle ankle was exposed and showed no evidence of osteophytes or loss of all the articular cartilage to the talar dome and the tibial plafond. Next, a intermittent distractor was placed across the ankle using 2.5 mm Steinmann pins as well as a lamina spiral spring winder was placed in the ankle joint and care was taken to denude all of the remaining articular cartilage to the tibial plafond as well as the talar dome, lateral gutter and medial gutter of the left ankle using combination of osteotomes and power burs. The ankle was flushed with copious normal saline. The ankle joint was fenestrated with a 2-0. After fenestration was complete the ankle was placed through a range of motion, no catching was noticed, as well as placed in position for final fixation which showed good apposition clinically as well as under C-arm fluoroscopy. 5 cc of V toss and 3 cc of augment were placed in the ankle joint. The ankle joint was fixed in a neutral position 90 degrees to the tibia, with slight posterior displacement so that the bisection of the tibia was through the lateral process of the talus, with approximately 5 degrees of external rotation. The ankle joint was temporarily fixed using 2 threaded BB tacks through the plate. The [place] anterior plate was fixated in anatomical position per the agent producer's recommendation with the rep in the room using locking screws through the talus. Position was checked with large C-arm fluoroscopy. Using the oblong hole on the plate compression was obtained. Apposition was noted clinically as well as with large C-arm fluoroscopy. The remaining holes were drilled and filled using a combination of locking and nonlocking screws. The incision was flushed with copious normal saline. At this time the tourniquet was deflated and reperfusion was noted to the right lower extremity. All bleeders were cauterized and ligated as necessary. The deep layer was reapproximated closed using 3-0 Vicryl and running locking suture technique. The subcutaneous layer was reapproximated closed using 3-0 Vicryl in running suture technique. The skin was reapproximated and closed using dov. 2 cc of via flow was injected into the incision to help with healing of the decreased scar tissue. The right lower extremities were cleaned and patted dry. Mepilex border postop silver 10 x 20 cm was applied over the incision followed by dry sterile dressing and a double layer Malagon AO splint at 90 degrees was applied to the right lower extremity. The patient tolerated the procedure and anesthesia well and apparent satisfactory condition and was transported to the PACU for further monitoring prior to discharge to the floor. Patient will be placed in extended coverage for the next 24 to 48 hours. Vital signs stable and vascular status intact to all digits bilateral. Post Operative Plan: Weightbearing: Nonweightbearing to the right lower extremity. This will be assisted with knee scooter and or crutches. Full weightbearing left lower extremity. Antibiotics: 2 g Ancef through the IV DVT Prophylaxis: Lovenox 40 mg Mckeon: None Dressing: Mepilex border postop silver 10 x 20 cm, dry sterile dressing double layer Malagon AO splint at 90 degrees to the right lower extremity. X-Rays: Post-operative films taken on the operating room. Pain Medication: Patient will be discharged home with Percocet 10/325, 500 mg Tylenol Follow-up: Patient will be admitted after surgery for 24 to 48 hours of extended recovery. After extended recovery has been completed the patient will be discharged home with friends and family. Surgical Findings: 1. Rectus ankle after successful arthrodesis. Complications Complications: No Admit VTE Documentation VTE Present on Admission: No VTE Mechan Device Prophylaxis: SCD's VTE Pharm Prophylaxis ordered?: Yes
--- NOTE | 2024-12-26 13:16 | PCM.HP.STD ---
HPI - General General Date of Service: 12/26/24 Chief Complaint: Right lower extremity pain secondary to ankle arthrodesis, fall risk HPI Narrative KARLA LANCE, is a 44 F who was admitted after right lower extremity ankle arthrodesis with concern of fall risk. The patient will be admitted under myself/podiatry for evaluation for extended recovery for the next 24. Patient is well-known to my service and has been treated conservatively for right lower extremity foot drop. She exhausted all conservative treatment and we elected to move forward with right ankle arthrodesis. DOS: 12/26/2024. Patient had a good operative outcome and tolerated anesthesia well. Should be admitted under podiatry for extended recovery for the next 48 hours. [facility] Medical History Ambulates with cane Marijuana use Flank pain Hydronephrosis Ureteral calculus Bacteria in urine Hypomania Hydronephrosis, right Vaping nicotine dependence, tobacco product Complicated UTI (urinary tract infection) Depression Psychosis Acute hypokalemia CHARLES (acute kidney injury) Former smoker Pain in right leg Short Achilles tendon (acquired), right ankle Chronic pain Hyperammonemia Migraine headache without aura Hypokalemia Radicular pain of both lower extremities Low back pain Polycythemia Hyperglycemia Cervical radiculopathy at C8 Neck pain Restless legs Loss of hearing Wears glasses Incontinence Back pain History of pain when walking Gastroparalysis Bipolar disorder Stenosis of celiac artery Acute flank pain Bilateral edema of lower extremity Ureteral calculus, right GERD (gastroesophageal reflux disease) Urinary tract infection Kidney stones Wears dentures Depression Walker as ambulation aid Arthritis DVT (deep venous thrombosis) Blackout Shortness of breath on exertion Fibromyalgia History of edema History of stress test Decreased urine output Opioid use disorder Personality disorder, unspecified Major depressive disorder, recurrent, unspecified HLD (hyperlipidemia) Chronic back pain Chronic lumbar disc degeneration Dyslipidemia IBS (irritable bowel syndrome) Migraine Insomnia Anxiety panic HTN (hypertension) Home Medications ?Medication ?Instructions ?Recorded ?Last Taken ?Type nortriptyline 50 mg capsule 100 mg PO QHS depression 10/13/17 11/12/23 History (Pamelor) propranolol 20 mg tablet 20 mg PO BID HIGH BLOOD PRESSURE 05/03/20 11/12/23 History lamotrigine 200 mg tablet 200 mg PO DAILY MOOD 08/02/22 11/12/23 History lorazepam 1 mg tablet 0.5 mg PO BID PRN anxiety 08/02/22 11/12/23 History tizanidine 4 mg tablet 4 mg PO TID PRN Muscle Pain 08/02/22 11/12/23 History gabapentin 800 mg tablet 800 mg PO TID 10/15/23 12/25/24 History clonidine HCl 0.1 mg tablet 0.2 mg PO QHS BLOOD PRESSURE 11/13/23 11/12/23 History fluorometholone 0.1 % eye 1 drp ophthalmic (eye) BID 11/13/23 11/12/23 History drops,suspension promethazine 25 mg tablet 12.5 - 25 mg PO DAILY PRN nausea 11/13/23 Unknown History and vomiting cariprazine 3 mg capsule (Vraylar) 3 mg PO QHS 04/18/24 Unknown History duloxetine 60 mg capsule,delayed 120 mg PO DAILY 04/18/24 Unknown History release medroxyprogesterone 150 mg/mL 150 mg IM .Q3MO 04/18/24 Unknown History intramuscular syringe ferrous sulfate 325 mg (65 mg 325 mg PO DAILY SUPPLEMENT #30 tabs 08/08/24 Unknown Rx iron) tablet folic acid 1 mg tablet 1 mg PO DAILY SUPPLEMENT #30 tabs 08/08/24 Unknown Rx lactulose 10 gram/15 mL oral 15 ml PO DAILY CONSTIPATION #473 mL 08/08/24 Unknown Rx solution rizatriptan 10 mg tablet 10 mg PO .COMPLEX migraine 08/08/24 Unknown Rx headache #9 tabs topiramate 100 mg tablet 100 mg PO BID #60 tabs 08/08/24 Unknown Rx naproxen 500 mg tablet 500 mg PO BID PRN pain #60 tabs 09/01/24 Unknown Rx acetaminophen 500 mg tablet 500 mg PO Q6H PRN pain 10/11/24 Unknown History (Tylenol Extra Strength) oxycodone-acetaminophen 10 mg-325 1 tab PO Q6H PRN pain 10/11/24 Unknown History mg tablet (Percocet) spironolactone 25 mg tablet 25 mg PO DAILY 11/09/24 Unknown History nitrofurantoin 100 mg PO BID #20 caps 12/22/24 Unknown Rx monohydrate/macrocrystals 100 mg capsule (Macrobid) bupropion HCl 150 mg tablet,12 hr 150 mg PO 12/23/24 Unknown History sustained-release quetiapine 100 mg tablet 100 mg PO QHS 12/23/24 Unknown History Allergy/AdvReac Type Severity Reaction Status Date / Time aspirin AdvReac Mild Nausea Verified 12/26/24 11:30 Family History Father Hypertension Heart disease Brother CAD (coronary artery disease) Myocardial infarction Mother Heart disease Myocardial infarction Surgical History Hx of foot surgery Hx of cystoscopy Hx of cystoscopy History of cholecystectomy History of repair of hiatal hernia History of esophagogastroduodenoscopy (EGD) S/P laparoscopic cholecystectomy Social History household members: children Smoking Status: Current every day smoker tobacco type: cigarettes Electronic Cigarette Use: with nicotine alcohol intake: never substance use type: marijuana Vital Signs Vital Signs Vital Signs: 12/26/24 11:37 12/26/24 11:37 12/26/24 12:56 Temperature 97.2 F L 97.2 F L Temperature Source Temporal Pulse Rate 69 69 Respiratory Rate 16 16 Respiratory Pattern Normal Blood Pressure 116/61 116/61 Blood Pressure Mean 79 Blood Pressure Source Monitor Blood Pressure Position Semi-Fowlers Blood Pressure Location Left Arm Pulse Ox 100 100 Oxygen Delivery Method Room Air Room Air Weight Weight: 68 kg Body Mass Index (BMI) 22.1 Physical Exam Narrative Vascular: Capillary refill time is intact to all digits to right lower extremity. Nonpitting edema appreciated right lower extremity to the distal and proximal aspect of the posterior splint. Neurological: Light touch is intact. Patient does respond to painful stimuli. Dermatological: Posterior splint donned to the right lower extremity. Musculoskeletal: No range of motion to the ankle joint secondary to arthrodesis to right lower extremity. No pain with calf pressure. Const alert, oriented x3 and no apparent distress Results Lab / Micro Data Labs: Laboratory Results - last 24 hr 12/26/24 11:07: Urine Test Negative 12/26/24 11:29: POC Glucose 90 Assessment & Plan Assessment/Plan (1) Risk for falls: PLAN: Patient was examined and evaluated. All findings were discussed with the patient. All questions were answered to the patient satisfaction. Patient just went under successful right lower extremity ankle arthrodesis with orthopedic hardware intact. AO splint/posterior splint is applied to the right lower extremity. AO splint to the left clean dry and intact. Patient will be admitted under podiatry for evaluation for next 24 hours and discharged tomorrow home. Medicine on board for medical management. PT/OT: Consult pending Please reach out to Dr. Miramontes with any questions or concerns. (2) Pain in right lower leg: (3) Foot drop, right foot:
[2024-12-26] MEDS: Midazolam 2 MG/2 ML Syringe 4 MG IV (13:20)
[2024-12-26] MEDS: dexMEDEtomidine 200 MCG/2 ML ML 60 MCG IV (13:36)
--- NOTE | 2024-12-26 13:45 | RAD_ITS ---
PROCEDURE: ANKLE MIN 3 VIEWS 12/26/2024 REASON FOR EXAM: ARTHRODESIS TECHNIQUE: ANKLE MIN 3 VIEWS Laterality: Right COMPARISON: 11/03/2024 FINDINGS: 7 spot fluoroscopic intraoperative views show the patient undergoing arthrodesis, tibiotalar joint. Curved volar plate and screws are intact. Anatomic alignment. No acute bone or soft tissue pathology. RAD/Ankle min 3 Views IMPRESSION: Unremarkable intraoperative appearance. [facility]
[2024-12-26] MEDS: fentaNYL 100 MCG/2 ML Ampul 300 MCG IV (15:27)
--- NOTE | 2024-12-26 16:08 | PCM.POST.ANE ---
Anesthesia: Postop Eval I Current Vital Signs Temperature: 97.2 F Pulse Rate: 89 Blood Pressure: 113/62 Respiratory Rate: 20 Pulse Ox: 93 Assessment Airway patent: Yes Spontaneous unlabored respirations: Yes nausea: No Vomiting: No Anesthesia Complication: No Fluid Hydration Crystalloid volume administer (ml): 1,500 Total IV fluid infused: 1,500 Progress Note Anesthesia document: Postop Eval 1 completed: Yes
[2024-12-26] MEDS: HYDROmorphone 0.5 MG/0.5 ML SYRINGE IV (16:37)
[2024-12-26] MEDS: Ketorolac 30 MG/ML Syringe IV (16:45)
--- NOTE | 2024-12-26 16:46 | CON.PCM.HO_ITS ---
Assessment & Plan Assessment/Plan (1) Foot drop, right foot: PLAN: Plan # History of bipolar disorder and anxiety -Patient on multiple psychiatric medications, will plan to continue her duloxetine, Lamictal, Seroquel - Vraylar is nonformulary and given patient will likely not have long stay this will be held, for some reason patient will need prolonged hospitalization could see if someone could bring it in from home for her -Proceed cautiously with Ativan given concomitant use of pain medication, would primarily want to monitor for oversedation #Hypertension - Patient's blood pressure 111/70, will decrease home nightly clonidine to allow room for pain control, it is possible that this dose is also for mental health given it is only dosed nightly, if patient doing well can likely DC on home dose at discharge -Will hold propranolol short-term as well for the above reasons # History of migraines -Follow-up outpatient - Continue home Topamax 100 twice daily #On antibiotic - Patient prescribed Macrobid on 12/22/2024 by urology, will continue as it was for a 10-day course so patient should still be on this #Tobacco use -Advise cessation -Nicotine replacement available if desired # Right foot drop -Status post right lower extremity ankle arthrodesis with Dr. Miramontes - Management/pain management per primary #DVT ppx: Timing and agent at the discretion of primary service Liudmila Jerez MD Time spent in the patient's overall evaluation, decision-making process, review of diagnostic data, adjustment of management, discussion with other providers, nursing and ancillary staff involved in patient's care documentation, 20 Minutes HPI Consult Data Date of Consult: 12/26/24 HPI Narrative Reason for Consultation: Medical management HPI Narrative: KARLA LANCE, is a 44-year-old female history of bipolar disorder, anxiety, migraines, hypertension who presented to [facility] 12/26/2024 for ankle arthrodesis of right lower extremity with Dr. Miramontes. Hospitalist consulted for postoperative medical management. Patient evaluated postoperatively. She reports pain in her right foot but has no other new or ac deering complaints at this time, reports she has been taking her medicines at home and that she is compliant with that. Does vape but does not feel she needs a nicotine patch. [facility] Medical History Ambulates with cane Marijuana use Flank pain Hydronephrosis Ureteral calculus Bacteria in urine Hypomania Hydronephrosis, right Vaping nicotine dependence, tobacco product Complicated UTI (urinary tract infection) Depression Psychosis Acute hypokalemia CHARLES (acute kidney injury) Former smoker Pain in right leg Short Achilles tendon (acquired), right ankle Chronic pain Hyperammonemia Migraine headache without aura Hypokalemia Radicular pain of both lower extremities Low back pain Polycythemia Hyperglycemia Cervical radiculopathy at C8 Neck pain Restless legs Loss of hearing Wears glasses Incontinence Back pain History of pain when walking Gastroparalysis Bipolar disorder Stenosis of celiac artery Acute flank pain Bilateral edema of lower extremity Ureteral calculus, right GERD (gastroesophageal reflux disease) Urinary tract infection Kidney stones Wears dentures Depression Walker as ambulation aid Arthritis DVT (deep venous thrombosis) Blackout Shortness of breath on exertion Fibromyalgia History of edema History of stress test Decreased urine output Opioid use disorder Personality disorder, unspecified Major depressive disorder, recurrent, unspecified HLD (hyperlipidemia) Chronic back pain Chronic lumbar disc degeneration Dyslipidemia IBS (irritable bowel syndrome) Migraine Insomnia Anxiety panic HTN (hypertension) Home Medications ?Medication ?Instructions ?Recorded ?Last Taken ?Type nortriptyline 50 mg capsule 100 mg PO QHS depression 0 10/13/17 11/12/23 History (Pamelor) propranolol 20 mg tablet 20 mg PO BID HIGH BLOOD PRES SURE 05/03/20 11/12/23 History lamotrigine 200 mg tablet 200 mg PO DAILY MOOD 3 11/12/23 History lorazepam 1 mg tablet 0.5 mg PO BID PRN anxiety 11/12/23 History tizanidine 4 mg tablet 4 mg PO TID PRN Muscle Pain 08/02/22 11/12/23 History gabapentin 800 mg tablet 800 mg PO TID 10/15/2312/25 History clonidine HCl 0.1 mg tablet 0.2 mg PO QHS BLOOD PRESSU RE 11/13/23 11/12/23 History fluorometholone 0.1 % eye 1 drp ophthalmic (eye) BID 0 11/13/23 11/12/23 History drops,suspension promethazine 25 mg tablet 12.5 - 25 mg PO DAILY PRN na usea 11/13/23 Unknown History and vomiting cariprazine 3 mg capsule (Vraylar) 3 mg PO QHS 4 Unknown History duloxetine 60 mg capsule,delayed 120 mg PO DAILY 04/18 Unknown History release medroxyprogesterone 150 mg/mL 150 mg IM .Q3MO 04/18/24 Unknown History intramuscular syringe ferrous sulfate 325 mg (65 mg 325 mg PO DAILY SUPPLEME NT #30 tabs 08/08/24 Unknown Rx iron) tablet folic acid 1 mg tablet 1 mg PO DAILY SUPPLEMENT #30 tabs 08/08/24 Unknown Rx lactulose 10 gram/15 mL oral 15 ml PO DAILY CONSTIPATI ON #473 mL 08/08/24 Unknown Rx solution rizatriptan 10 mg tablet 10 mg PO .COMPLEX migraine 0 08/08/24 Unknown Rx headache #9 tabs topiramate 100 mg tablet 100 mg PO BID #60 tabs 08/08 Unknown Rx naproxen 500 mg tablet 500 mg PO BID PRN pain #60 t abs 09/01/24 Unknown Rx acetaminophen 500 mg tablet 500 mg PO Q6H PRN pain Unknown History (Tylenol Extra Strength) oxycodone-acetaminophen 10 mg-325 1 tab PO Q6H PRN lisseth n 10/11/24 Unknown History mg tablet (Percocet) spironolactone 25 mg tablet 25 mg PO DAILY 11/09/24 Un known History nitrofurantoin 100 mg PO BID #20 caps 12/22 Unknown Rx monohydrate/macrocrystals 100 mg capsule (Macrobid) bupropion HCl 150 mg tablet,12 hr 150 mg PO 12/23/24 U nknown History sustained-release quetiapine 100 mg tablet 100 mg PO QHS 12/23/24 Unkno wn History ascorbic acid (vitamin C) 1,000 mg 1 g PO DAILY 90 day s #90 tabs 12/26/24 Unknown Rx tablet (Vitamin C) calcium 500 mg (as 1 tab PO DAILY 90 days #90 t abs 12/26/24 Unknown Rx carbonate)-vitamin D3 15 mcg (600 unit) tablet (Os-Alexander 500 + D3) docusate sodium 100 mg capsule 100 mg PO DAILY 10 days #10 caps 12/26/24 Unknown Rx (Colace) enoxaparin 40 mg/0.4 mL 40 mg (0.4 mL) subcut DAILY 30 12/26/24 Unknown Rx subcutaneous syringe (Lovenox) days #12 mL oxycodone 10 mg tablet 10 mg PO Q4H pain 7 days #42 tabs 12/26/24 Unknown Rx Allergy/AdvReac Type Severity Reaction Status Date / Time aspirin AdvReac Mild Nausea Verified 12/26/24 11:30 Family History Father Hypertension Heart disease Brother CAD (coronary artery disease) Myocardial infarction Mother Heart disease Myocardial infarction Surgical History Hx of foot surgery Hx of cystoscopy Hx of cystoscopy History of cholecystectomy History of repair of hiatal hernia History of esophagogastroduodenoscopy (EGD) S/P laparoscopic cholecystectomy Social History household members: children Smoking Status: Current every day smoker tobacco type: cigarettes Electronic Cigarette Use: with nicotine alcohol intake: never substance use type: marijuana ROS ROS Narrative Pain in right foot, reviewed ROS and otherwise patient with no new or acute complaints Physical Exam Narrative General: Alert, oriented, no apparent distress, appears older than stated age HEENT: Atraumatic, normocephalic Eyes: extraocular movements grossly intact Neck: Supple Respiratory: normal respiratory effort, no wheezes or rhonchi Cardiovascular: Regular rate and rhythm GI: nondistended Extremities: Moving all extremities aside from right foot presently in cast Neuro: No overt focal neurological deficits Psych: Cooperative Lab / Micro Data Labs: Laboratory Results - last 24 hr 12/26/24 11:07: Urine Test Negative 12/26/24 11:29: POC Glucose 90 Charges/Coding Visit Charges Office Visits / Consults: 36089 OV L3 Est 20min
--- NOTE | 2024-12-26 18:26 | POSTOPAN2_ITS ---
Anesthesia Postop Eval I Sum Postop Eval Completion status Anesthesia document: Postop Eval 1 completed: Yes Anesthesia Postop Eval I Summary Anesthesia Postop Eval I Summary: Anesthesia Postop Eval I: Assessment Summary Airway patent Yes 12/26/24 16:08 RESIDENT PROGRAM SPECIALIST.CSIR Spontaneous unlabored Yes 12/26/24 16:08 RESIDENT PROGRAM SPECIALIST.CSIR respirations Mental status nausea No 12/26/24 16:08 RESIDENT PROGRAM SPECIALIST.CSIR Vomiting No 12/26/24 16:08 RESIDENT PROGRAM SPECIALIST.CSIR Anesthesia Postop Eval I: Fluid Summary Crystalloid volume administer 1,500 12/26/24 16:08 RESIDENT PROGRAM SPECIALIST.CSIR (ml) Colloids volume administered ( ml) Blood Product volume administered (ml) Total IV fluid infused 1,500 12/26/24 16:08 RESIDENT PROGRAM SPECIALIST.CSIR Anesthesia Postop Eval I: Summary Notes Anesthesia Complication No 12/26/24 16:08 RESIDENT PROGRAM SPECIALIST.CSIR Anesthesia Complication Comment: Post-operative progress note Anesthesia: Postop Eval II Evaluation Mental status: Awake and Calm Pain Level: 2 nausea: No Vomiting: No Complications Anesthesia Complication: No
--- NOTE | 2024-12-26 18:26 | PCM.POSTANE2 ---
Anesthesia Postop Eval I Sum Postop Eval Completion status Anesthesia document: Postop Eval 1 completed: Yes Anesthesia Postop Eval I Summary Anesthesia Postop Eval I Summary: Anesthesia Postop Eval I: Assessment Summary Airway patent Yes 12/26/24 16:08 GANG HEAD SAW OPERATOR.CSIR Spontaneous unlabored Yes 12/26/24 16:08 GANG HEAD SAW OPERATOR.CSIR respirations Mental status nausea No 12/26/24 16:08 GANG HEAD SAW OPERATOR.CSIR Vomiting No 12/26/24 16:08 GANG HEAD SAW OPERATOR.CSIR Anesthesia Postop Eval I: Fluid Summary Crystalloid volume administer 1,500 12/26/24 16:08 GANG HEAD SAW OPERATOR.CSIR (ml) Colloids volume administered ( ml) Blood Product volume administered (ml) Total IV fluid infused 1,500 12/26/24 16:08 GANG HEAD SAW OPERATOR.CSIR Anesthesia Postop Eval I: Summary Notes Anesthesia Complication No 12/26/24 16:08 GANG HEAD SAW OPERATOR.CSIR Anesthesia Complication Comment: Post-operative progress note Anesthesia: Postop Eval II Evaluation Mental status: Awake and Calm Pain Level: 2 nausea: No Vomiting: No Complications Anesthesia Complication: No
[2024-12-26] MEDS: 0.9% Saline Lock 10 ML Syringe IV (23:35)
[2024-12-27 02:01] VITALS: BP 119/78; PULSE 64; RESP 16; TEMP 36.5; O2SAT 100
[2024-12-27 05:28] VITALS: BP 123/80; PULSE 72; RESP 16; TEMP 36.6; O2SAT 100
[2024-12-27] MEDS: 0.9% Saline Lock 10 ML Syringe IV ×2 (05:51→08:57)
--- NOTE | 2024-12-27 07:55 | PN.SURG_ITS ---
Subjective Subjective Ms. Diaz is a 44-year-old female seen at bedside today for evaluation of right lower extremity ankle arthrodesis with posterior splint intact. Patient states that the nerve block has set up and she has no pain to the right lower extremity. She is not concerned with being discharged today or going home. She does have help at the day and at night. No acute events overnight. She does state she had trouble sleeping. No other pedal complaints at this time. Objective Data Objective Data Vital Signs: Vital Signs Temp Pulse Resp BP Pulse Ox O2 Del Method 97.8 F 72 16 123/80 H 100 Room Air 12/27/24 05:28 12/27/24 05:28 12/27/24 05:28 12/27/24 05:28 12/27/24 05:28 12/27/24 05:28 Oxygen Delivery Method Room Air Weight: 68 kg Body Mass Index (BMI) 22.1 Intake & Output: Intake and Output for Last 24 Hours 12/25/24 12/26/24 12/27/24 23:59 23:59 23:59 Intake Total 104 / 104 236.5 / 236.5 Output Total 230 / 230 Balance -126 / -126 236.5 / 236.5 Lab / Micro Data Labs: Laboratory Results - last 24 hr 12/26/24 11:07: Urine Test Negative 12/26/24 11:29: POC Glucose 90 Radiography Diagnostic Testing: Radiology Impression Ankle X-Ray 12/26/24 13:45 IMPRESSION: Unremarkable intraoperative appearance. Reading Location: [place] [id number] Physical Exam Narrative Vascular: Capillary refill time is intact to all digits to right lower extremity. Nonpitting edema appreciated right lower extremity to the distal and proximal aspect of the posterior splint. Neurological: Light touch is intact. Patient does respond to painful stimuli. Dermatological: Posterior splint donned to the right lower extremity. Musculoskeletal: No range of motion to the ankle joint secondary to arthrodesis to right lower extremity. No pain with calf pressure. Const alert, oriented x3 and no apparent distress Assessment & Plan Assessment/Plan (1) Risk for falls: PLAN: Patient was examined and evaluated. All findings were discussed with the patient. All questions were answered to the patient satisfaction. Patient is status post ankle arthrodesis to right lower extremity with posterior splint applied. DOS: 12/26/2024. Postoperative day 1. Patient is overall doing very well after her surgery. The popliteal block is set in and the patient is showing good pain and control with the block. Patient will be discharged today after her extended recovery and will continue the postoperative instructions as discussed. All follow-up visits and orders are in the discharge summary. All medications have been sent to [facility] pharmacy to be meds to bed delivered for the patient before discharged. Patient will continue to be nonweightbearing to the right lower extremity. Full weightbearing to left lower extremity. Nonweightbearing will be assisted with knee scooter. Medicine: On board, medical management Please reach out to Dr. Miramontes any question or concerns. (2) Foot drop, right foot: (3) Pain in right lower leg:
--- NOTE | 2024-12-27 07:55 | PCM.DC.SUM ---
Providers Date of Admission: 12/26/24 Date of Discharge: 12/27/24 Primary Care Physician: Dr. Tom Giraldo MD Consultations 12/26/24 16:22 Consult: Hospitalist Routine Consulting Provider: Liudmila Jerez Reason for Consult: Medical Management EMERGENT Consult: No MD Notified: Yes Date Notified: 12/26/24 Time Notified: 17:13 Method of Notification: Text Reason For Visit: Extended recovery status post ankle arthrodesis, R Diagnosis Discharge Diagnosis (1) Risk for falls: Status: Acute Code(s): Z91.81 - History of falling (2) Foot drop, right foot: Status: Acute Code(s): M21.371 - Foot drop, right foot (3) Pain in right lower leg: Status: Acute Code(s): M79.661 - Pain in right lower leg Medications at Discharge Home Medications nortriptyline 50 mg capsule (Pamelor) 100 mg PO QHS depression 10/13/17 propranolol 20 mg tablet 20 mg PO BID HIGH BLOOD PRESSURE 05/03/20 lamotrigine 200 mg tablet 200 mg PO DAILY MOOD 08/02/22 lorazepam 1 mg tablet 0.5 mg PO BID PRN anxiety 08/02/22 tizanidine 4 mg tablet 4 mg PO TID PRN Muscle Pain 08/02/22 gabapentin 800 mg tablet 800 mg PO TID 10/15/23 clonidine HCl 0.1 mg tablet 0.2 mg PO QHS BLOOD PRESSURE 11/13/23 fluorometholone 0.1 % eye drops,suspension 1 drp ophthalmic (eye) BID 11/13/23 promethazine 25 mg tablet 12.5 - 25 mg PO DAILY PRN nausea and vomiting 11/13/23 cariprazine 3 mg capsule (Vraylar) 3 mg PO QHS 04/18/24 duloxetine 60 mg capsule,delayed release 120 mg PO DAILY 04/18/24 medroxyprogesterone 150 mg/mL intramuscular syringe 150 mg IM .Q3MO 04/18/24 ferrous sulfate 325 mg (65 mg iron) tablet 325 mg PO DAILY SUPPLEMENT #30 tabs 08/08/24 folic acid 1 mg tablet 1 mg PO DAILY SUPPLEMENT #30 tabs 08/08/24 lactulose 10 gram/15 mL oral solution 15 ml PO DAILY CONSTIPATION #473 mL 08/08/24 rizatriptan 10 mg tablet 10 mg PO .COMPLEX migraine headache #9 tabs 08/08/24 topiramate 100 mg tablet 100 mg PO BID #60 tabs 08/08/24 naproxen 500 mg tablet 500 mg PO BID PRN pain #60 tabs 09/01/24 acetaminophen 500 mg tablet (Tylenol Extra Strength) 500 mg PO Q6H PRN pain 10/11/24 oxycodone-acetaminophen 10 mg-325 mg tablet (Percocet) 1 tab PO Q6H PRN pain 10/11/24 spironolactone 25 mg tablet 25 mg PO DAILY 11/09/24 nitrofurantoin monohydrate/macrocrystals 100 mg capsule (Macrobid) 100 mg PO BID #20 caps 12/22/24 bupropion HCl 150 mg tablet,12 hr sustained-release 150 mg PO Q12H 12/23/24 quetiapine 100 mg tablet 100 mg PO QHS 12/23/24 ascorbic acid (vitamin C) 1,000 mg tablet (Vitamin C) 1 g PO DAILY 90 days #90 tabs 12/26/24 calcium 500 mg (as carbonate)-vitamin D3 15 mcg (600 unit) tablet (Os-Alexander 500 + D3) 1 tab PO DAILY 90 days #90 tabs 12/26/24 docusate sodium 100 mg capsule (Colace) 100 mg PO DAILY 10 days #10 caps 12/26/24 enoxaparin 40 mg/0.4 mL subcutaneous syringe (Lovenox) 40 mg (0.4 mL) subcut DAILY 30 days #12 mL 12/26/24 oxycodone 10 mg tablet 10 mg PO Q4H pain 7 days #42 tabs 12/26/24 hydromorphone 4 mg tablet (Dilaudid) 4 mg PO Q4H 7 days #42 tabs 12/27/24 naloxone 4 mg/actuation nasal spray (Narcan) 1 spray intranasal Q3M #2 ea 12/27/24 Hospital Course Operations - (Right lower extremity ankle arthrodesis) Summary of Care Provided Minutes Spent on Discharge: 30 Hospital Course: Ms. Diaz is a 44-year-old female admitted to [facility] for extended recovery status post right lower extremity ankle arthrodesis. DOS: 12/26/2024. Patient had an uneventful surgery and recovery. Popliteal block is setting and has no pain at this time. She is seen by medicine for medical management. Overall the patient had an unremarkable night as well as hospital stay and is doing very well. Should be discharged home to be taken care of by family. She will be nonweightbearing to right lower extremity with knee scooter and full weightbearing to left lower extremity. She will be managed by me for pain management over the next 3 weeks and then I will return her back to pain management for continued evaluation and care. No other pedal complaints at this time. Physical Exam Narrative Vascular: Capillary refill time is intact to all digits to right lower extremity. Nonpitting edema appreciated right lower extremity to the distal and proximal aspect of the posterior splint. Neurological: Light touch is intact. Patient does respond to painful stimuli. Dermatological: Posterior splint donned to the right lower extremity. Musculoskeletal: No range of motion to the ankle joint secondary to arthrodesis to right lower extremity. No pain with calf pressure. Const alert, oriented x3 and no apparent distress Weight / BMI Weight Weight: 68 kg Body Mass Index (BMI) 22.1 ABG / Lab / Microbiology Data Laboratory: Laboratory Results - last 24 hr 12/26/24 11:07: Urine Test Negative 12/26/24 11:29: POC Glucose 90 Radiography Diagnostic Testing: Radiology Impression Ankle X-Ray 12/26/24 13:45 IMPRESSION: Unremarkable intraoperative appearance. Reading Location: [place] [address] D/C Instructions Discharge Activity: May Not Shower, Use Crutches and - (knee scooter) Return to work on: 03/28/25 May shower in (days): 30 May resume sexual activity in: No Restrictions Ice area for (Minutes): 20 Weight Bearing Status: No weight bearing Lifting Restricted to (Lbs): 10 Keep extremity elevated above heart level: Operative Extremity Call your doctor if your incision/area has: Continuous Slow Oozing, Sudden Increased Bleeding, Increased Pain/ Swelling and Foul Smelling Discharge Call your doctor if you observe: Fever of 101 or Higher Suture Line Care: Avoid Pulling/Pushing Change Dressing in: do not change dressing Remove Dressing in: do not remove dressing Cleanse incision/area with: Do not get Incision Wet DC O2, CPAP, BIPAP Needs Home O2 Discharge instructions: No DC home with Oxygen: No Please Follow Up With: Nithin Miramontes DPM Meaningful Use Info Meaningful Use Meaningful Use Diagnoses (Choose all that apply): None applicable Discharge Plan Admission Admit Date/Time: 12/26/24 16:13 Primary Reason for Your Visit: Right ankle surgery Attending Provider: Nithin Miramontes Primary Care Provider: Tom Giraldo Consulting Providers: Liudmila Jerez; Davis Yu Instructions Patient Instructions: Anesthesia: General Anesthesia, Cast Care, Post-Op Tips: Foot Additional Instructions / Restrictions: 1. Please keep your surgical dressing clean dry and intact. Do not remove. Do not get it wet. 2. Continue rest, ice (behind your operative knee) and elevate per your postoperative instructions that were given to you at the day of your surgical consultation while in office. 3. Patient will be nonweightbearing to the right lower extremity this is a knee scooter and or crutches. Full weightbearing left lower extremity. 4. Please take all pain medication and prescriptions as written. 5. If you are a diabetic patient please continue tight glucose control while in the postoperative phase. 6. Please continue to follow-up with all your doctors visits prior and after surgery. 7. Please reach out to Dr. Miramontes, through the paging system in the hospital or private office with any questions or concerns. 8. Thank you for letting me be involved in your surgical care! Discharge Orders/Prescriptions Prescriptions: New oxycodone 10 mg tablet 10 mg PO Q4H 7 Days Qty: 42 0RF calcium carbonate-vitamin D3 [Os-Alexander 500 + D3] 500 mg-15 mcg (600 unit) tablet 1 tab PO DAILY 90 Days Qty: 90 0RF docusate sodium [Colace] 100 mg capsule 100 mg PO DAILY 10 Days Qty: 10 0RF ascorbic acid (vitamin C) [Vitamin C] 1,000 mg tablet 1 g PO DAILY 90 Days Qty: 90 0RF enoxaparin [Lovenox] 40 mg/0.4 mL syringe 40 mg subcut DAILY 30 Days Qty: 12 1RF naloxone [Narcan] 4 mg/actuation spray,non-aerosol 1 spray intranasal Q3M Qty: 2 0RF Rx Instructions: spray 1 dose into ONE nostril; alternate nostrils w each dose until help arrives hydromorphone [Dilaudid] 4 mg tablet 4 mg PO Q4H 7 Days Qty: 42 0RF No Action gabapentin 800 mg tablet 800 mg PO TID ferrous sulfate 325 mg (65 mg iron) tablet 325 mg PO DAILY Qty: 30 7RF folic acid 1 mg tablet 1 mg PO DAILY Qty: 30 7RF lactulose 10 gram/15 mL solution 15 ml PO DAILY Qty: 473 7RF rizatriptan 10 mg tablet 10 mg PO .COMPLEX Qty: 9 7RF Rx Instructions: Take 1 tablet orally every two hours as needed for headache up to three tablets per day topiramate 100 mg tablet 100 mg PO BID Qty: 60 7RF naproxen 500 mg tablet 500 mg PO BID PRN (Reason: pain) Qty: 60 4RF nortriptyline [Pamelor] 50 MG capsule 100 mg PO QHS propranolol 20 MG tablet 20 mg PO BID lamotrigine 200 mg tablet 200 mg PO DAILY tizanidine 4 mg tablet 4 mg PO TID PRN (Reason: Muscle Pain) lorazepam 1 mg tablet 0.5 mg PO BID PRN (Reason: anxiety) spironolactone 25 mg tablet 25 mg PO DAILY clonidine HCl 0.1 mg tablet 0.2 mg PO QHS promethazine 25 mg tablet 12.5 - 25 mg PO DAILY PRN (Reason: nausea and vomiting) fluorometholone 0.1 % drops,suspension 1 drp ophthalmic (eye) BID medroxyprogesterone 150 mg/mL syringe 150 mg IM .Q3MO Vraylar 3 mg capsule 3 mg PO QHS duloxetine 60 mg capsule,delayed release(DR/EC) 120 mg PO DAILY acetaminophen [Tylenol Extra Strength] 500 mg tablet 500 mg PO Q6H PRN (Reason: pain) oxycodone-acetaminophen [Percocet] 10-325 mg tablet 1 tab PO Q6H PRN (Reason: pain) quetiapine 100 mg tablet 100 mg PO QHS bupropion HCl 150 mg tablet sustained-release 12 hr 150 mg PO Q12H nitrofurantoin monohyd/m-cryst [Macrobid] 100 mg capsule 100 mg PO BID Qty: 20 0RF Rx Instructions: must administer with a meal/food Referrals / Follow Up: Nithin Miramontes DPM [Med Staff - Active Staff] - See Referral Note (Please follow-up at your already scheduled postoperative appointment.) Tom Giraldo MD [Primary Care Provider] - Disposition Disposition (needs filled in before D/C Order can be placed): Home, Self Care
--- NOTE | 2024-12-27 09:46 | CASEMGMT ---
Addendum entered by Мария Curtis 12/27/24 11:23: Notified per Burke at [facility] that the BSC was delivered. He requested the order be emailed to him. Order emailed at this time. Addendum entered by Мария Curtis 12/27/24 10:43: UTE SWEENEY into pt room, pt states her family is at [facility] and they are unable to get the BSC. She states she will just buy from [facility]. Made pt aware that [employer] SWEENEY can work on this for her, pt declines stating she wants to dc. Pt did not have therapy yet and states she does not want to wait for therapy. Pt states she has a rollator and will use at home for her non wt bearing status. Pt denies any homegoing needs. Original Note: TC to [facility], no PA or cost for lovenox and med has been delivered to pt.
--- NOTE | 2024-12-27 10:12 | PN.HOSP_ITS ---
Reason for Visit Chief Complaint: Right lower extremity pain secondary to ankle arthrodesis, fall risk Objective Data Objective Data Vital Signs: Vital Signs Temp Pulse Resp BP Pulse Ox O2 Del Method 97.8 F 72 16 123/80 H 100 Room Air 12/27/24 05:28 12/27/24 05:28 12/27/24 05:28 12/27/24 05:28 12/27/24 05:28 12/27/24 05:28 Oxygen Delivery Method Room Air Weight: 149 lb 14.629 oz Body Mass Index (BMI) 22.1 Intake & Output: Intake and Output for Last 24 Hours 12/25/24 12/26/24 12/27/24 23:59 23:59 23:59 Intake Total 104 / 104 236.5 / 236.5 Output Total 230 / 230 Balance -126 / -126 236.5 / 236.5 Lab / Micro Data Labs: Laboratory Results - last 24 hr 12/26/24 11:07: Urine Test Negative 12/26/24 11:29: POC Glucose 90 Radiography Diagnostic Testing: Radiology Impression Ankle X-Ray 12/26/24 13:45 IMPRESSION: Unremarkable intraoperative appearance. Reading Location: [place] [address] Assessment & Plan Assessment/Plan (1) Foot drop, right foot: PLAN: Plan # History of bipolar disorder and anxiety -Patient on multiple psychiatric medications, will plan to continue her duloxetine, Lamictal, Seroquel - Vraylar is nonformulary and given patient will likely not have long stay this will be held, for some reason patient will need prolonged hospitalization could see if someone could bring it in from home for her -Proceed cautiously with Ativan given concomitant use of pain medication, would primarily want to monitor for oversedation #Hypertension - Patient's blood pressure 111/70, will decrease home nightly clonidine to allow room for pain control, it is possible that this dose is also for mental health given it is only dosed nightly, if patient doing well can likely DC on home dose at discharge -Will hold propranolol short-term as well for the above reasons # History of migraines -Follow-up outpatient - Continue home Topamax 100 twice daily #On antibiotic - Patient prescribed Macrobid on 12/22/2024 by urology, will continue as it was for a 10-day course so patient should still be on this #Tobacco use -Advise cessation -Nicotine replacement available if desired # Right foot drop -Status post right lower extremity ankle arthrodesis with Dr. Miramontes - Management/pain management per primary #DVT ppx: Timing and agent at the discretion of primary service
--- NOTE | 2024-12-27 10:12 | PCM.PN.HOSP ---
Reason for Visit Chief Complaint: Right lower extremity pain secondary to ankle arthrodesis, fall risk Objective Data Objective Data Vital Signs: Vital Signs Temp Pulse Resp BP Pulse Ox O2 Del Method 97.8 F 72 16 123/80 H 100 Room Air 12/27/24 05:28 12/27/24 05:28 12/27/24 05:28 12/27/24 05:28 12/27/24 05:28 12/27/24 05:28 Oxygen Delivery Method Room Air Weight: 149 lb 14.629 oz Body Mass Index (BMI) 22.1 Intake & Output: Intake and Output for Last 24 Hours 12/25/24 12/26/24 12/27/24 23:59 23:59 23:59 Intake Total 104 / 104 236.5 / 236.5 Output Total 230 / 230 Balance -126 / -126 236.5 / 236.5 Lab / Micro Data Labs: Laboratory Results - last 24 hr 12/26/24 11:07: Urine Test Negative 12/26/24 11:29: POC Glucose 90 Radiography Diagnostic Testing: Radiology Impression Ankle X-Ray 12/26/24 13:45 IMPRESSION: Unremarkable intraoperative appearance. Reading Location: [place] [id number] Physical Exam Narrative Seen and examined Patient was admitted by faculty support coordinator. Plan for discharge today. Patient had right foot drop therefore had foot fusion and posterior splint intact. Physical exam General: Alert, Oriented x3, Cooperative HEENT: Atraumatic, PERRLA, EOMI, Normocephalic. Oral: No Gingival or Mucosal Lesions/ Ulcerations Neck: Supple, No JVD, Negative Carotid Bruits Chest wall/Lungs: Air entry diminished in bilateral lung bases. No crepitation/rhonchi Cardiovascular: Regular rate and rhythm, Normal S1,S2, No M/G/R Abdomen: Bowel Sounds Present, Soft, Non Tender, Non-Distended : No dysuria. No renal angle tenderness. No suprapubic tenderness. Extremities: No edema, Capillary Refill Less than 3 Seconds Skin: No rashes, No breakdown Musculoskeletal: Right below-knee with Ap wrap bandage with posterior splint. No acute tenderness to Palpation of Joints or Extremities Neurological: Cranial nerves II-XII grossly intact, DTR 2+/4. No acute focal neurological deficit. Psych/Mental Status: Normal Affect, Appropriate. Assessment & Plan Assessment/Plan (1) Foot drop, right foot: PLAN: Plan # History of bipolar disorder and anxiety -Patient on multiple psychiatric medications, will plan to continue her duloxetine, Lamictal, Seroquel - Vraylar is nonformulary and given patient will likely not have long stay this will be held, for some reason patient will need prolonged hospitalization could see if someone could bring it in from home for her 12/27: Follow-up with the psychiatrist. #Hypertension 12/27: Blood pressure is normal. # History of migraines -Follow-up outpatient - Continue home Topamax 100 twice daily #On antibiotic - Patient prescribed Macrobid on 12/22/2024 by urology, will continue as it was for a 10-day course so patient should still be on this #Tobacco use -Advise cessation -Nicotine replacement available if desired # Right foot drop -Status post right lower extremity ankle arthrodesis with Dr. Miramontes - Management/pain management per primary #DVT ppx: Timing and agent at the discretion of primary service Patient is being discharged with faculty support coordinator Charges/Coding Visit Charges Inpatient E&M: 21580 Subs Hosp L2
[2024-12-27 11:21] VITALS: BP 129/76; PULSE 88; RESP 16; TEMP 36.4; O2SAT 100
== END 2024-12-27 11:21 | disposition home or self-care (01) ==
LOC: SDC 16:58 → MS3 16:58
PROVIDERS: Anesthesiology; Admitting Provider Podiatrist Foot & Ankle Surgery; PCP Family Medicine; Referring Provider Podiatrist Foot & Ankle Surgery; Visit Provider Podiatrist Foot & Ankle Surgery
PROC: (CPT 27870; principal; 2024-12-26 12:45)
DX: M21.371 Foot drop, right foot (principal); F31.9 Bipolar disorder, unspecified; I10 Essential (primary) hypertension; K58.9 Irritable bowel syndrome, unspecified; G43.909 Migraine, unspecified, not intractable, without status migrainosus; E78.5 Hyperlipidemia, unspecified; M79.7 Fibromyalgia; G25.81 Restless legs syndrome; F41.9 Anxiety disorder, unspecified; K21.9 Gastro-esophageal reflux disease without esophagitis; R32 Unspecified urinary incontinence; G47.00 Insomnia, unspecified; M19.90 Unspecified osteoarthritis, unspecified site; M51.369 Other intervertebral disc degeneration, lumbar region without mention of lumbar back pain or lower extremity pain; F17.210 Nicotine dependence, cigarettes, uncomplicated; F12.99 Cannabis use, unspecified with unspecified cannabis-induced disorder; Z79.899 Other long term (current) drug therapy; Z79.01 Long term (current) use of anticoagulants; Z79.891 Long term (current) use of opiate analgesic; Z86.718 Personal history of other venous thrombosis and embolism
CPT/HCPCS: 27870; 01480; 36415; 73610; 76000; 81025; 82306; 82962; 83036; 87086; 94668; 96372; 96374; 96376; 99221; C1713; C9399; A4216; G0378; J2405

== ENCOUNTER 2024-12-29 09:58 | Day surgery (SDC) | payer MEDICAID, SELFPAY ==
[2024-12-29] VITALS (10 sets, daily range): BP systolic 99–110; BP diastolic 55–74; PULSE 84–96; RESP 16–18; TEMP 36–36.2; O2SAT 95–100; BMI 22.8
[2024-12-29 10:33] LABS: Hematocrit 35.8 % (37-47); Hemoglobin 11.0 g/dL (12.0-15.0); Mean Corp Hgb Conc 30.7 g/dL (32-36); Mean Corpuscular Volume 94.2 fL (81-99); Mean Platelet Vol. 10.2 fl (6.2-12.0); Platelet Count 308 K/mm3 (150-450); RBC Distribution Width CV 14.5 % (11.6-14.6); RBC Distribution Width SD 50.1 fl (35.1-43.9); Red Blood Count 3.80 M/mm3 (4.2-5.4); White Blood Count 6.8 K/mm3 (4.4-11.0)
[2024-12-29] MEDS: Lactated Ringers 1,000 ML 15 ML IV (10:50)
[2024-12-29 10:55] LABS: Anion Gap 12 (5-15); BUN 10 mg/dL (4-19); BUN/Creat Ratio 12.7 RATIO (10-20); Calcium,Total 9.5 mg/dL (7.6-11.0); Carbon Dioxide 21.2 mmol/L (21.0-32.0); Chloride 113 mmol/L (98-108); Estimated Creatinine Clearance 101.08 ml/min (50-250); Glucose 96 mg/dL (70-99); Potassium 4.3 mmol/L (3.3-5.1)
--- NOTE | 2024-12-29 11:01 | PCM.PRE.AN2 ---
ASA Classification* ASA Classification ASA Classification: 3 Assessment & Plan Anesthesia* Anesthesia Assessment Anesthesia Assessment: Discussed sedation and/or anesthesia options, risks, benefits, and alternatives with patient/parents/legal guardian/POA. Questions invited. The patient/parents/legal guardian/POA seems to understand and agrees to proceed with anesthesia plan. Reviewed the physical assessment, medical history, allergy history and patient home medications list prior to surgery/procedure/anesthetic and documented any changes. Performed airway and anesthesia risk assessments. Anesthesia Type Anesthesia Type: General History Source History Obtained from:: Patient and Chart Anesthesia Focused Assessment* Temperature: 97.2 F Pulse Rate: 96 Blood Pressure: 104/72 Respiratory Rate: 18 Pulse Ox: 96 Oxygen Delivery Method: Room Air Airway Assessment Mouth opens: >3 cm Mallampati Score: IV Teeth Condition: Dentures (Patient has full upper and lower dentures. They will come out.) Neck Range of motion (ROM): Full ROM Labs Anesthesia Preop lab: CBC WBC 6.8 K/mm3 (4.4-11.0) 12/29/24 10:12/29/24 RBC 3.80 M/mm3 (4.2-5.4) L 12/29/24 10:12/29/24 Hgb 11.0 g/dL (12.0-15.0) L 12/29/24 10:12/29/24 Hct 35.8 % (37-47) L 12/29/24 10:12/29/24 Plt Count 308 K/mm3 (150-450) 12/29/24 10:12/29/24 CHEMISTRY Potassium 4.3 mmol/L (3.3-5.1) 12/29/24 10:12/29/24 Sodium 146 mmol/L (133-145) H 12/29/24 10:12/29/24 Magnesium 1.8 mg/dL (1.5-2.2) 11/09/24 16:15 11/09/24 BUN 10 mg/dL (4-19) 12/29/24 10:12/29/24 Creatinine 0.75 mg/dL (0.70-1.20) 12/29/24 10:12/29/24 Glucose 96 mg/dL (70-99) 12/29/24 10:28 12/29/24 POC Glucose 90 mg/dL (74-106) 12/26/24 11:29 12/26/24 TSH 0.497 uIU/mL (0.358-3.740) 03/16/24 11:47 03/16/24 COAG PT 14.9 SECONDS (11.7-14.9) 11/09/24 19:45 11/09/24 HCG, Quant < 1 mIU/mL (<9 non-preg) 10/13/24 11:25 10/13/24 Urine Test Negative Negative 12/26/24 11:07 12/26/24 Pre-Assessment Diagnosis/Proposed Procedure Planned Operative Procedure(s): (R) Cysto, Right ureteroscopy laser litho, stent change Anesthesia History Anesthesia History - director of cath lab: Anesthesia History - director of cath lab Hx Hospitalization No 12/28/24 15:15 Any Problems With Anesthesia No 12/28/24 15:15 Cholinesterase deficiency No 12/28/24 15:15 You/Your Family Experience No 12/28/24 15:15 fever (hyperthermia) with Relationship Recent Exposure to Contagious No 12/29/24 10:44 Disease Does patient have nerve Yes 12/28/24 15:15 stimulator Patient instructed to have device shut off --Does patient have Pacemaker No 12/29/24 10:44 or ICD? When Was Last Pacemaker Check QUESTION #4 FULL TEXT: You/Your Family Experience fever (hyperthermia) with Anesthesia Last Oral Intake Last Oral intake: Last Oral Intake NPO since 22:30 12/29/24 10:44 Meds taken in AM with sips of water? Meds patient instructed to take am of surgery PONV PONV - director of cath lab: PONV - director of cath lab Female Yes 12/28/24 15:15 HX of Motion Sickness No 12/28/24 15:15 HX of N/V After Surgery No 12/28/24 15:15 Non-Smoker No 12/28/24 15:15 Duration of Surgery greater No 12/28/24 15:15 than 60 minutes Number of Risk Factors 1 12/28/24 15:15 PONV Score Low Risk 12/28/24 15:15 Height & Weight Height & Weight: Anesthesia: Height & Weight Height 5 ft 9 in 12/29/24 10:44 Weight: 70.4 kg 12/29/24 10:44 Body Mass Index (BMI) 22.8 12/29/24 10:44 Respiratory Assessment Respiratory Assessment - director of cath lab: Respiratory Tract Infection Hx - director of cath lab Hx Respiratory Tract Infection No 12/28/24 15:15 STOP Sleep Apnea STOP Sleep Apnea - director of cath lab: STOP Sleep Apnea - director of cath lab Hx Hypertension No 12/28/24 15:15 Hx Sleep Apnea No 12/28/24 15:15 CPAP No 12/28/24 15:15 BIPAP No 12/28/24 15:15 Do you snore loudly (louder No 12/28/24 15:15 than talking or can be heard Do you often feel tired/ No 12/28/24 15:15 fatigued/ sleepy during daytime? Has anyone observed you stop No 12/28/24 15:15 breathing during sleep? STOP Results Negative 12/28/24 15:15 QUESTION #5 FULL TEXT : Do you snore loudly (louder than talking or can be heard through closed doors)? 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 Specify any problems Hx of Preganancy in last 3 No 12/28/24 15:15 Months Nurse Filling Out Transfusion VCHRISTIN 12/28/24 15:15 & Questions: Date: 12/28/24 12/28/24 15:15 Time: 15:17 12/28/24 15:15 Patient unable to answer at this time (ie. confused, unrespo /Reproduction History /Reproductive History - director of cath lab: /Reproductive Hx- director of cath lab Hx Now No 12/28/24 15:15 Gestational Age (in weeks): EDC: Hx Hx Para Hx Section SAB No 12/28/24 15:15 Active Medications Active Medications: Current Medications Generic Name Dose Route Start Last Admin Trade Name Freq PRN Reason Stop Dose Admin Cefazolin Sodium 2 gm/ Sodium 110 mls @ 200 mls/hr 12/29/24 11:30 Chloride IV 12/29/24 12:02 INTRAOP ONE Lactated Ringer's 1,000 mls @ 15 mls/hr 12/29/24 10:15 12/29/24 10:50 IV 15 mls/hr .Q48H GENI Administration PFSH Medical History Ambulates with cane Marijuana use Flank pain Hydronephrosis Ureteral calculus Bacteria in urine Hypomania Hydronephrosis, right Vaping nicotine dependence, tobacco product Complicated UTI (urinary tract infection) Depression Psychosis Acute hypokalemia CHARLES (acute kidney injury) Former smoker Pain in right leg Short Achilles tendon (acquired), right ankle Chronic pain Hyperammonemia Migraine headache without aura Hypokalemia Radicular pain of both lower extremities Low back pain Polycythemia Hyperglycemia Cervical radiculopathy at C8 Neck pain Restless legs Loss of hearing Wears glasses Incontinence Back pain History of pain when walking Gastroparalysis Bipolar disorder Stenosis of celiac artery Acute flank pain Bilateral edema of lower extremity Ureteral calculus, right GERD (gastroesophageal reflux disease) Urinary tract infection Kidney stones Wears dentures Depression Walker as ambulation aid Arthritis DVT (deep venous thrombosis) Blackout Shortness of breath on exertion Fibromyalgia History of edema History of stress test Decreased urine output Opioid use disorder Personality disorder, unspecified Major depressive disorder, recurrent, unspecified HLD (hyperlipidemia) Chronic back pain Chronic lumbar disc degeneration Dyslipidemia IBS (irritable bowel syndrome) Migraine Insomnia Anxiety panic HTN (hypertension) Home Medications ?Medication ?Instructions ?Recorded ?Last Taken ?Type nortriptyline 50 mg capsule 100 mg PO QHS depression 10/13/17 12/28/24 History (Pamelor) propranolol 20 mg tablet 20 mg PO BID HIGH BLOOD PRESSURE 05/03/20 11/12/23 History Held on 12/28/24. Instructions: ON HOLD lamotrigine 200 mg tablet 200 mg PO DAILY MOOD 08/02/22 12/28/24 History lorazepam 1 mg tablet 0.5 mg PO BID PRN anxiety 08/02/22 11/12/23 History tizanidine 4 mg tablet 4 mg PO TID PRN Muscle Pain 08/02/22 11/12/23 History gabapentin 800 mg tablet 800 mg PO TID 10/15/23 12/28/24 History clonidine HCl 0.1 mg tablet 0.2 mg PO QHS BLOOD PRESSURE 11/13/23 11/12/23 History Held on 12/28/24. Instructions: BLOOD PRESSURE TOO LOW fluorometholone 0.1 % eye 1 drp ophthalmic (eye) BID 11/13/23 11/12/23 History drops,suspension promethazine 25 mg tablet 12.5 - 25 mg PO DAILY PRN nausea 11/13/23 12/28/24 History and vomiting cariprazine 3 mg capsule (Vraylar) 3 mg PO QHS 04/18/24 12/28/24 History duloxetine 60 mg capsule,delayed 120 mg PO DAILY 04/18/24 12/28/24 History release medroxyprogesterone 150 mg/mL 150 mg IM .Q3MO 04/18/24 Unknown History intramuscular syringe ferrous sulfate 325 mg (65 mg 325 mg PO DAILY SUPPLEMENT #30 tabs 08/08/24 12/28/24 Rx iron) tablet folic acid 1 mg tablet 1 mg PO DAILY SUPPLEMENT #30 tabs 08/08/24 12/28/24 Rx lactulose 10 gram/15 mL oral 15 ml PO DAILY CONSTIPATION #473 mL 08/08/24 Unknown Rx solution rizatriptan 10 mg tablet 10 mg PO .COMPLEX migraine 08/08/24 12/28/24 Rx headache #9 tabs topiramate 100 mg tablet 100 mg PO BID #60 tabs 08/08/24 12/28/24 Rx naproxen 500 mg tablet 500 mg PO BID PRN pain #60 tabs 09/01/24 Unknown Rx oxycodone-acetaminophen 10 mg-325 1 tab PO Q6H PRN pain 10/11/24 Unknown History mg tablet (Percocet) Held on 12/29/24. Instructions: not using currently spironolactone 25 mg tablet 25 mg PO DAILY 11/09/24 Unknown History Held on 12/28/24. Instructions: BP TOO LOW nitrofurantoin 100 mg PO BID #20 caps 12/22/24 12/28/24 Rx monohydrate/macrocrystals 100 mg capsule (Macrobid) bupropion HCl 150 mg tablet,12 hr 150 mg PO Q12H 12/23/24 12/28/24 History sustained-release quetiapine 100 mg tablet 100 mg PO QHS 12/23/24 12/28/24 History ascorbic acid (vitamin C) 1,000 mg 1 g PO DAILY 90 days #90 tabs 12/26/24 Unknown Rx tablet (Vitamin C) calcium 500 mg (as 1 tab PO DAILY 90 days #90 tabs 12/26/24 Unknown Rx carbonate)-vitamin D3 15 mcg (600 unit) tablet (Os-Alexander 500 + D3) docusate sodium 100 mg capsule 100 mg PO DAILY 10 days #10 caps 12/26/24 Unknown Rx (Colace) enoxaparin 40 mg/0.4 mL 40 mg (0.4 mL) subcut DAILY 30 12/26/24 12/28/24 Rx subcutaneous syringe (Lovenox) days #12 mL oxycodone 10 mg tablet 10 mg PO Q4H pain 7 days #42 tabs 12/26/24 12/28/24 Rx Held on 12/29/24. Instructions: not using currently hydromorphone 4 mg tablet 4 mg PO Q4H 7 days #42 tabs 12/27/24 12/29/24 Rx (Dilaudid) naloxone 4 mg/actuation nasal 1 spray intranasal Q3M #2 ea 12/27/24 Unknown Rx spray (Narcan) Allergy/AdvReac Type Severity Reaction Status Date / Time aspirin AdvReac Mild Nausea Verified 12/29/24 10:38 Family History Father Hypertension Heart disease Brother CAD (coronary artery disease) Myocardial infarction Mother Heart disease Myocardial infarction Surgical History Hx of foot surgery Hx of foot surgery Hx of cystoscopy Hx of cystoscopy History of cholecystectomy History of repair of hiatal hernia History of esophagogastroduodenoscopy (EGD) S/P laparoscopic cholecystectomy Social History household members: children Smoking Status: Current every day smoker tobacco type: cigarettes and e-cigarettes Electronic Cigarette Use: with nicotine alcohol intake: never substance use type: marijuana Review of Systems (Anesthesia) ROS Narrative System reviewed and no additional complaints, except as documented.
--- NOTE | 2024-12-29 11:02 | SUR.PREOP ---
Patient was unable to void and she refused the test as she just had one 3 days ago for her previous procedure.
--- NOTE | 2024-12-29 11:28 | PCM.HP.BLA ---
History and Physical Date of Admission: 12/29/24 Date of Service: 12/21/24 MR#: [id number] Acct: [id number] Name: KARLA LANCE Rep #: [id number] : 1980 Provider: Dr. 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 Accompanied by: Self Is patient in pain?: Yes Pain scale (1-10): 9 (stents causing pain ) Allergies aspirin Adverse Reaction (Mild, Verified 12/21/24 09:13) Nausea Medications ?Medication ?Instructions ?Recorded ?Confirmed ?Type nortriptyline 50 mg capsule 100 mg PO QHS depression 10/13/17 12/21/24 History (Pamelor) propranolol 20 mg tablet 20 mg PO BID HIGH BLOOD PRESSURE 05/03/20 12/21/24 History lamotrigine 200 mg tablet 200 mg PO DAILY MOOD 08/02/22 12/21/24 History lorazepam 1 mg tablet 1 mg PO BID PRN anxiety 08/02/22 12/21/24 History tizanidine 4 mg tablet 4 mg PO TID PRN Muscle Pain 08/02/22 12/21/24 History gabapentin 800 mg tablet 800 mg PO TID 10/15/23 12/21/24 History clonidine HCl 0.1 mg tablet 0.2 mg PO QHS BLOOD PRESSURE 11/13/23 12/21/24 History dicyclomine 10 mg capsule 10 mg PO 4X/DAY PRN ABDOMINAL 11/13/23 12/21/24 History CRAMPS fluorometholone 0.1 % eye 1 drp ophthalmic (eye) BID 11/13/23 12/21/24 History drops,suspension promethazine 25 mg tablet 12.5 - 25 mg PO DAILY PRN nausea 11/13/23 12/21/24 History and vomiting cariprazine 3 mg capsule (Vraylar) 3 mg PO QHS 04/18/24 12/21/24 History duloxetine 60 mg capsule,delayed 120 mg PO DAILY 04/18/24 12/21/24 History release medroxyprogesterone 150 mg/mL 150 mg IM .Q3MO 04/18/24 12/21/24 History intramuscular syringe quetiapine 50 mg tablet 50 mg PO QHS 04/18/24 12/21/24 History ferrous sulfate 325 mg (65 mg 325 mg PO DAILY SUPPLEMENT #30 tabs 08/08/24 12/21/24 Rx iron) tablet folic acid 1 mg tablet 1 mg PO DAILY SUPPLEMENT #30 tabs 08/08/24 12/21/24 Rx lactulose 10 gram/15 mL oral 15 ml PO DAILY CONSTIPATION #473 mL 08/08/24 12/21/24 Rx solution rizatriptan 10 mg tablet 10 mg PO .COMPLEX migraine 08/08/24 12/21/24 Rx headache #9 tabs topiramate 100 mg tablet 100 mg PO BID #60 tabs 08/08/24 12/21/24 Rx naproxen 500 mg tablet 500 mg PO BID PRN pain #60 tabs 09/01/24 12/21/24 Rx acetaminophen 500 mg tablet 500 mg PO Q6H PRN pain 10/11/24 11/09/24 History (Tylenol Extra Strength) oxycodone-acetaminophen 10 mg-325 1 tab PO Q6H PRN pain 10/11/24 12/21/24 History mg tablet (Percocet) spironolactone 25 mg tablet 25 mg PO DAILY 11/09/24 12/21/24 History Have you fallen in the past year?: No PFSH Medical History (Updated 12/21/24 @ 09:[address] Krystin Aggarwal MD) Flank pain Hydronephrosis Ureteral calculus Kidney stones Bacteria in urine Hypomania Complicated UTI (urinary tract infection) Depression Psychosis Acute hypokalemia CHARLES (acute kidney injury) Pain in right leg Short Achilles tendon (acquired), right ankle Hyperammonemia Migraine headache without aura Hypokalemia Radicular pain of both lower extremities Low back pain Polycythemia Hyperglycemia Cervical radiculopathy at C8 Neck pain Stenosis of celiac artery Acute flank pain Bilateral edema of lower extremity Ureteral calculus, right Urinary tract infection Decreased urine output Chronic back pain Chronic lumbar disc degeneration Dyslipidemia Hydronephrosis, right Vaping nicotine dependence, tobacco product Former smoker Chronic pain Restless legs Loss of hearing Wears glasses Incontinence Back pain History of pain when walking Gastroparalysis Bipolar disorder GERD (gastroesophageal reflux disease) Wears dentures Depression Walker as ambulation aid Arthritis DVT (deep venous thrombosis) Blackout Shortness of breath on exertion Fibromyalgia History of edema History of stress test Opioid use disorder Personality disorder, unspecified Major depressive disorder, recurrent, unspecified HLD (hyperlipidemia) IBS (irritable bowel syndrome) Migraine Insomnia Anxiety panic HTN (hypertension) Surgical History Hx of foot surgery Hx of cystoscopy Hx of cystoscopy History of cholecystectomy History of repair of hiatal hernia History of esophagogastroduodenoscopy (EGD) S/P laparoscopic cholecystectomy Family History Father Hypertension Heart diseaseBrother CAD (coronary artery disease) Myocardial infarctionMother Heart disease Myocardial infarction Social History household members: children Smoking Status: Current every day smoker tobacco type: cigarettes Electronic Cigarette Use: with nicotine alcohol intake: never substance use type: marijuana HPI HPI Urology Chief Complaint: pre-operation H&P with urine culture and consent Details: KARLA LANCE, is a 44 F. The patient is here for preoperative history and physical prior to cystoscopy with right ureteroscopy, laser lithotripsy, stone basket extraction, right ureteral stent change. There are no new symptoms since the last visit. She is still having pressure from her stent. She is working really hard on her diet. She has cut out her soda intake and is now drinking Gatorade, water and lemonade!! She is no longer confused and really is doing well. The procedure, recovery and expectations were explained. The risks, benefits and alternatives were discussed, including but not limited to, the risks of anesthesia, bleeding, infection, injury, pain and the need for further intervention. We have discussed the risk of exposure to and/or potential harm posed by the COVID-19 virus with having a surgery/procedure at this time. A joint decision was made at this time to proceed with the scheduled surgery/procedure as indicated on the consent form. ROS Const Constitutional: No chills, fatigue, fever(s), headache(s), night sweats, weakness, weight change, abnormal sleep pattern or change in appetite Eyes Eyes: No change in vision ENT ENT: No headache(s) or dry mouth Resp Respiratory: No cough, chest congestion, shortness of breath or wheezing Cardio Cardiology: Positive for other (No chest pain.); No shortness of breath, irregular heart rhythm or lightheadedness Gastro GI: Positive for other (No nausea.); No abdominal pain, change in bowel habits, constipation, diarrhea or vomiting Musc Musculoskeletal: No abnormal gait Skin Skin: No yellowing of the eye, lesions, itchy eyes, rash or skin ulcer Neuro Neurology: No abnormal gait, confusion, dizziness, weakness, headache(s) or memory loss Psych Psychiatric: No abnormal sleep pattern, No change in appetite, No confusion and No memory loss Endo Endocrine: No fatigue, increased thirst/drinking or weight change Aller/Imm Allergy/Immunologic: No itchy eyes or wheezing Marcelino/Lymp Hematologic/Lymphatic: No easy bleeding, easy bruising or enlarged lymph nodes Exam Const General: cooperative, healthy appearing, comfortable and no acute distress [facility] Head: normocephalic and atraumatic Ears: hearing grossly normal bilaterally and external ears normal Nose: external nose normal Eyes General: appearance normal, both eyes and all related structures Neck Neck: normal visual inspection and trachea midline Chest Chest palpation & inspection: normal inspection of the chest Resp Effort & Inspection: normal respiratory effort, able to speak in complete sentences and symmetric chest movement Cardio Rate: regular rate GI Inspection: normal to inspection Palpation: soft and nontender General: No CVA tenderness Skin General: no rashes or lesions noted Neuro General: patient alert, patient awake, patient oriented x3 and CN's II-XI intact bilaterally Extrem General: normal to inspection Psych Appearance: grossly normal and well kempt Mental Status: mental status grossly normal Results POC UA Auto w/o Microscopy Office Urine Color ? Last Edit by Yolis Huitron on 12/21/24 09:24 Office Urine Clarity ? Last Edit by Yolis Huitron on 12/21/24 09:24 Office Urine Glucose Negative Last Edit by Yolis Huitron on 12/21/24 09:24 Office Urine Ketones Negative Last Edit by Yolis Huitron on 12/21/24 09:24 Office Urine Bilirubin Negative Last Edit by Yolis Huitron on 12/21/24 09:24 Office Urine Urobilinogen Negative Last Edit by Yolis Huitron on 12/21/24 09:24 Off Ur Spec [place] 1.010 Last Edit by Yolis Huitron on 12/21/24 09:24 Office Urine pH 6 Last Edit by Yolis Huitron on 12/21/24 09:24 Office Urine Protein Negative Last Edit by Yolis Huitron on 12/21/24 09:24 Office Urine Blood Trace Last Edit by Yolis Huitron on 12/21/24 09:24 Office Urine Blood Hemolyzed Negative Last Edit by Yolis Huitron on 12/21/24 09:24 Office Urine Nitrate Negative Last Edit by Yolis Huitron on 12/21/24 09:24 Off Ur Leukocytes Positive Last Edit by Yolis Huitron on 12/21/24 09:24 Coding Level of Care Code Off vis,est,level 4 Diagnoses Kidney stones N20.0 Ureteral calculus N20.1 Hydronephrosis N13.30 Flank pain R10.9 Assessment and Plan Assessment and Plan (1) Kidney stones: Status: Acute (2) Ureteral calculus: Status: Acute (3) Hydronephrosis: Status: Acute (4) Flank pain: Status: Acute Orders: Orders POC UA Auto w/o Microscopy Today N20.0 - Calculus of kidney Patient Instructions: urine culture today, treatment after results proceed with surgery as planned Clinical Quality Measures Falls Risk Screening/Assistive Devices Have you fallen in the past year?: No 12/21/24 7597 <Electronically signed by Krystin Aggarwal MD> Date Krystin Aggarwal MD
--- NOTE | 2024-12-29 11:29 | EX.PCM.DISCH ---
Discharge Instructions Diet Discharge Diet: No restrictions Activity Discharge Activity: Return to Normal Activity Dressing / Incision Call your doctor if you observe: Fever of 101 or Higher, Inability to urinate and Inability to have a bowel movement Follow Up Care Please Follow Up With: Krystin Aggarwal MD When: The office will call to make arrangements. Test Results: Test results from this visit will be discussed in further detail at your follow-up appointment, if applicable. Discharge Plan Admission Attending Provider: Krystin Aggarwal Primary Care Provider: Tom Giraldo Instructions Print Language: Dominican Discharge Orders/Prescriptions Prescriptions: New phenazopyridine 200 mg tablet 200 mg PO TID PRN (Reason: pain) Qty: 30 3RF Continued gabapentin 800 mg tablet 800 mg PO TID ferrous sulfate 325 mg (65 mg iron) tablet 325 mg PO DAILY Qty: 30 7RF folic acid 1 mg tablet 1 mg PO DAILY Qty: 30 7RF lactulose 10 gram/15 mL solution 15 ml PO DAILY Qty: 473 7RF rizatriptan 10 mg tablet 10 mg PO .COMPLEX Qty: 9 7RF Rx Instructions: Take 1 tablet orally every two hours as needed for headache up to three tablets per day topiramate 100 mg tablet 100 mg PO BID Qty: 60 7RF naproxen 500 mg tablet 500 mg PO BID PRN (Reason: pain) Qty: 60 4RF nortriptyline [Pamelor] 50 MG capsule 100 mg PO QHS propranolol 20 MG tablet 20 mg PO BID lamotrigine 200 mg tablet 200 mg PO DAILY tizanidine 4 mg tablet 4 mg PO TID PRN (Reason: Muscle Pain) lorazepam 1 mg tablet 0.5 mg PO BID PRN (Reason: anxiety) spironolactone 25 mg tablet 25 mg PO DAILY clonidine HCl 0.1 mg tablet 0.2 mg PO QHS promethazine 25 mg tablet 12.5 - 25 mg PO DAILY PRN (Reason: nausea and vomiting) fluorometholone 0.1 % drops,suspension 1 drp ophthalmic (eye) BID medroxyprogesterone 150 mg/mL syringe 150 mg IM .Q3MO Vraylar 3 mg capsule 3 mg PO QHS duloxetine 60 mg capsule,delayed release(DR/EC) 120 mg PO DAILY oxycodone-acetaminophen [Percocet] 10-325 mg tablet 1 tab PO Q6H PRN (Reason: pain) quetiapine 100 mg tablet 100 mg PO QHS bupropion HCl 150 mg tablet sustained-release 12 hr 150 mg PO Q12H oxycodone 10 mg tablet 10 mg PO Q4H 7 Days Qty: 42 0RF calcium carbonate-vitamin D3 [Os-Alexander 500 + D3] 500 mg-15 mcg (600 unit) tablet 1 tab PO DAILY 90 Days Qty: 90 0RF docusate sodium [Colace] 100 mg capsule 100 mg PO DAILY 10 Days Qty: 10 0RF ascorbic acid (vitamin C) [Vitamin C] 1,000 mg tablet 1 g PO DAILY 90 Days Qty: 90 0RF enoxaparin [Lovenox] 40 mg/0.4 mL syringe 40 mg subcut DAILY 30 Days Qty: 12 1RF naloxone [Narcan] 4 mg/actuation spray,non-aerosol 1 spray intranasal Q3M Qty: 2 0RF Rx Instructions: spray 1 dose into ONE nostril; alternate nostrils w each dose until help arrives hydromorphone [Dilaudid] 4 mg tablet 4 mg PO Q4H 7 Days Qty: 42 0RF nitrofurantoin monohyd/m-cryst [Macrobid] 100 mg capsule 100 mg PO BID Qty: 20 0RF Rx Instructions: must administer with a meal/food Referrals / Follow Up: Tom Giraldo MD [Primary Care Provider] - Disposition Disposition (needs filled in before D/C Order can be placed): Home, Self Care
[2024-12-29] MEDS: Lactated Ringers 500 ML IV (11:30)
--- NOTE | 2024-12-29 11:30 | CALC_PTH ---
PATIENT: KARLA LANCE LOC: [facility] [place] U#:[id number] AGE/SX: 44/F ROOM: RE12/29/[address]: Dr. Krystin Aggarwal MD : 1980 BED: DIS: 12/29/2024 SPEC #: [id number] RECD: 12/29/24 13:29 STATUS: KIRAN ARMENDARIZ #: [id number] NOLBERTO: 12/29/24 11:[address]: Krystin Aggarwal DEPT: SURGICAL PATHOLOGY RECD BY: Julian Jama ENTERED: 12/29/24 13:36 SP TYPE: Calculi OTHR DR: Dr. Tom Giraldo MD Tissues: A - CALCULI Procedures: Surgery Specimen Level I HEADER OPERATION: Right ureteroscopy, stent change stone basket extraction PRE-OP DIAGNOSIS: Kidney stones, ureteral calculus, hydronephrosis, flank pain TISSUE SUBMITTED: A- Renal calculi GROSS DIAGNOSIS A. Right kidney, calculi, right ureteroscopy: - Urolithiasis (gross examination only). - Chemical analysis pending, to be reported separately GROSS DESCRIPTION A. Received fresh labeled with the patient's name and date of . Designated as right renal calculi are 3 irregular, yellow to brown calculi, 0.1 cm to 0.4 cm. No sections are submitted. The specimen is for gross examination only. The specimen is sent for stone analysis. GA 12/29/2024 CPT:53945
[2024-12-29] MEDS: Cefazolin 1 GM/5 ML Vial 2 GM IV (11:31)
[2024-12-29] MEDS: fentaNYL 100 MCG/2 ML Ampul IV (11:37)
[2024-12-29] MEDS: Lidocaine 1% (5 ml sdv) 5 ML Vial IV (11:37)
--- NOTE | 2024-12-29 12:12 | PCM.OPRPT ---
Operative Report (Standard) Operative Information Date of Procedure: 12/29/24 Pre-Operative Diagnosis: Right ureteral calculus Post-Operative Diagnosis: Same Surgery/Procedure Performed: Cystoscopy, right ureteroscopy, stone basket extraction, right ureteral stent change departmental buyer: No Type of Anesthesia: General RN Documented Start/Stop Times: Operation Date: 12/29/24 11:30 Case Time Into Pre-Op 12/29/24 10:07 Out of Pre-Op 12/29/24 11:29 Anesthesia Start 12/29/24 11:30 Into Room 12/29/24 11:30 Procedure Start 12/29/24 11:45 Procedure End 12/29/24 11:55 Anesthesia End 12/29/24 12:08 Out of Room 12/29/24 12:08 Into Recovery 12/29/24 12:10 Procedure Start Time: 11:45 Procedure Stop Time: 11:55 Select all DRAINS/GRAFTS/IMPLANTS that apply: Drains Drain details: 4.5 [place] by 28 cm JJ stent Estimated Blood Loss: <5cc Specimen collected: Yes Description of specimen(s) removed: Right ureteral stone, multiple Description of surgery: The patient is a 44-year-old female who underwent a right ureteral stent insertion for obstructing stone and now presents for definitive intervention. Informed consent was obtained. She was taken to the operating room and placed on the operating room table. Anesthesia monitored the head, neck, airway, IV access and vital signs throughout the case. Once anesthesia was appropriate ministered, she was placed into dorsolithotomy position very carefully secondary to her right lower extremity and recent surgical intervention. She was prepped and draped in usual sterile fashion. The cystoscope was inserted through the urethra under direct visualization into the urinary bladder. The ureteral stent was grasped and removed without difficulty. A few stone fragments were removed with the stent. A 0.035 Glidewire was then passed through the orifice into the renal pelvis is seen on fluoroscopy. The semirigid ureteroscope was passed alongside the wire and in the distal ureter for stones were grasped with the basket and removed without difficulty. The ureteroscope was once again taken all the way through the ureter up to the renal pelvis and when no further stones were identified, the ureteroscope was removed. There is no evidence of injury, laceration or other abnormality identified. The safety wire was then utilized with the cystoscope for placement of a 4.5 [place] 28 cm JJ stent with good positioning in the renal pelvis as well as the urinary bladder. Her bladder was then emptied. The cystoscope was removed and she was awakened and taken to the recovery room in good condition. There were no complications during the procedure. Surgical Findings: Several distal right ureteral stones were identified and removed. The stent was changed. Complications Complications: No Admit VTE Documentation VTE Present on Admission: Yes VTE Mechan Device Prophylaxis: SCD's VTE Pharm Prophylaxis ordered?: No Reason prophylaxis not ordered: Treatment Not Indicated
--- NOTE | 2024-12-29 12:12 | PCM.POST.ANE ---
Anesthesia: Postop Eval I Current Vital Signs Temperature: 97 F Pulse Rate: 85 Blood Pressure: 102/66 Respiratory Rate: 16 Pulse Ox: 100 Oxygen Delivery Method: Room Air Assessment Airway patent: Yes Spontaneous unlabored respirations: Yes Mental status: Awake and Calm nausea: No Vomiting: No Anesthesia Complication: No Fluid Hydration Crystalloid volume administer (ml): 500 Total IV fluid infused: 500 Progress Note Anesthesia document: Postop Eval 1 completed: Yes
== END 2024-12-29 13:40 | disposition home or self-care (01) ==
LOC: SDC 10:00 → AC 10:01
PROVIDERS: PCP Family Medicine; Referring Provider Urology; Visit Provider Urology
PROC: 0TJ98ZZ Inspection of Ureter, Via Natural or Artificial Opening Endoscopic (ICD-10-PCS; CPT 52352; principal; 2024-12-29 11:20)
DX: N13.2 Hydronephrosis with renal and ureteral calculous obstruction (principal); I10 Essential (primary) hypertension; F17.210 Nicotine dependence, cigarettes, uncomplicated; E78.5 Hyperlipidemia, unspecified; K21.9 Gastro-esophageal reflux disease without esophagitis
CPT/HCPCS: 52352; 52332; 00918; 76000; 80048; 82360; 85027; 88300; C1769; C2617; J2405

== ENCOUNTER → 2025-01-05 | Outpatient (CLI) | payer MEDICAID, SELFPAY ==
[2025-01-05 18:34] LABS: Anion Gap 14 (5-15); BUN 15 mg/dL (4-19); BUN/Creat Ratio 13.2 RATIO (10-20); Calcium,Total 9.9 mg/dL (7.6-11.0); Carbon Dioxide 22.0 mmol/L (21.0-32.0); Chloride 108 mmol/L (98-108); Glucose 80 mg/dL (70-99); Potassium 4.4 mmol/L (3.3-5.1)
== END | disposition home or self-care (01) ==
LOC: MFPLAB 12:00
PROVIDERS: PCP Family Medicine; Referring Provider Family Medicine; Visit Provider Family Medicine
DX: E87.6 Hypokalemia (principal)
CPT/HCPCS: 36415; 80048

== ENCOUNTER 2025-01-11 18:55 | Emergency (ER) | payer MEDICAID, SELFPAY ==
[2025-01-11 18:55] VITALS: BP 143/53; PULSE 117; RESP 16; TEMP 36.6; O2SAT 98
[2025-01-11 18:57] VITALS: BMI 22.3
--- NOTE | 2025-01-11 19:45 | EX.ED.UPPERE ---
HPI History of Present Illness Chief Complaint: Upper Extremity Injury Narrative Narrative: Chief complaint and HPI: Right shoulder pain. 44-year-old male with past medical history of chronic pain, GERD, HLD, lumbar disc degeneration presents for evaluation of right shoulder pain. Patient states for the past week she has had pain that radiates down the arm from her right shoulder. She describes it as sharp. Associated symptom is decreased group home manager strength. No history of carpal tunnel. Patient denies any neck pain. Denies any trauma. She denies any fever, chills, shortness of breath, chest pain. Review of systems: See HPI Medications: As listed on the chart Allergies: As listed on the chart PFSH: Per chart Vital signs: As listed on the chart. Reviewed. Physical exam: Gen: A&O x3, NAD Head: Normocephalic, atraumatic Eyes: No sclera icterus, conjunctiva clear, PERRL, EOMI ENT: Moist mucous membranes Neck: Trachea midline, No JVD, full range of motion, nontender to palpation CV: RRR, no murmurs, no peripheral edema Resp: Lungs CTA BL, no w/r/c Musc: Full ROM, no deformity, patient has tenderness to palpation of the right superior trapezius muscle as well as into the posterior shoulder-states that palpation recreates the pain down her arm, no obvious signs of trauma, radial pulse +2 bilaterally, good capillary refill, compartments soft, Tinel's test negative, group home manager strength +4/5 in the right but +5/5 in the left, cast present on right lower extremity Skin: Warm, dry Neuro: Alert, oriented, grossly intact, sensation intact Psych: Cooperative, appropriate mood and affect [facility] Medical History Ambulates with cane Marijuana use Flank pain Hydronephrosis Ureteral calculus Bacteria in urine Hypomania Hydronephrosis, right Vaping nicotine dependence, tobacco product Complicated UTI (urinary tract infection) Depression Psychosis Acute hypokalemia CHARLES (acute kidney injury) Former smoker Pain in right leg Short Achilles tendon (acquired), right ankle Chronic pain Hyperammonemia Migraine headache without aura Hypokalemia Radicular pain of both lower extremities Low back pain Polycythemia Hyperglycemia Cervical radiculopathy at C8 Neck pain Restless legs Loss of hearing Wears glasses Incontinence Back pain History of pain when walking Gastroparalysis Bipolar disorder Stenosis of celiac artery Acute flank pain Bilateral edema of lower extremity Ureteral calculus, right GERD (gastroesophageal reflux disease) Urinary tract infection Kidney stones Wears dentures Depression Walker as ambulation aid Arthritis DVT (deep venous thrombosis) Blackout Shortness of breath on exertion Fibromyalgia History of edema History of stress test Decreased urine output Opioid use disorder Personality disorder, unspecified Major depressive disorder, recurrent, unspecified HLD (hyperlipidemia) Chronic back pain Chronic lumbar disc degeneration Dyslipidemia IBS (irritable bowel syndrome) Migraine Insomnia Anxiety panic HTN (hypertension) Home Medications ?Medication ?Instructions ?Recorded ?Last Taken ?Type nortriptyline 50 mg capsule 100 mg PO QHS depression 10/13/17 12/28/24 History (Pamelor) propranolol 20 mg tablet 20 mg PO BID HIGH BLOOD PRESSURE 05/03/20 11/12/23 History lamotrigine 200 mg tablet 200 mg PO DAILY MOOD 08/02/22 12/28/24 History lorazepam 1 mg tablet 0.5 mg PO BID PRN anxiety 08/02/22 11/12/23 History tizanidine 4 mg tablet 4 mg PO TID PRN Muscle Pain 08/02/22 11/12/23 History gabapentin 800 mg tablet 800 mg PO TID 10/15/23 12/28/24 History clonidine HCl 0.1 mg tablet 0.2 mg PO QHS BLOOD PRESSURE 11/13/23 11/12/23 History fluorometholone 0.1 % eye 1 drp ophthalmic (eye) BID 11/13/23 11/12/23 History drops,suspension promethazine 25 mg tablet 12.5 - 25 mg PO DAILY PRN nausea 11/13/23 12/28/24 History and vomiting cariprazine 3 mg capsule (Vraylar) 3 mg PO QHS 04/18/24 12/28/24 History medroxyprogesterone 150 mg/mL 150 mg IM .Q3MO 04/18/24 Unknown History intramuscular syringe ferrous sulfate 325 mg (65 mg 325 mg PO DAILY SUPPLEMENT #30 tabs 08/08/24 12/28/24 Rx iron) tablet folic acid 1 mg tablet 1 mg PO DAILY SUPPLEMENT #30 tabs 08/08/24 12/28/24 Rx lactulose 10 gram/15 mL oral 15 ml PO DAILY CONSTIPATION #473 mL 08/08/24 Unknown Rx solution rizatriptan 10 mg tablet 10 mg PO .COMPLEX migraine 08/08/24 12/28/24 Rx headache #9 tabs topiramate 100 mg tablet 100 mg PO BID #60 tabs 08/08/24 12/28/24 Rx oxycodone-acetaminophen 10 mg-325 1 tab PO Q6H PRN pain 10/11/24 Unknown History mg tablet (Percocet) spironolactone 25 mg tablet 25 mg PO DAILY 11/09/24 Unknown History nitrofurantoin 100 mg PO BID #20 caps 12/22/24 12/28/24 Rx monohydrate/macrocrystals 100 mg capsule (Macrobid) bupropion HCl 150 mg tablet,12 hr 150 mg PO Q12H 12/23/24 12/28/24 History sustained-release quetiapine 100 mg tablet 100 mg PO QHS 12/23/24 12/28/24 History ascorbic acid (vitamin C) 1,000 mg 1 g PO DAILY 90 days #90 tabs 12/26/24 Unknown Rx tablet (Vitamin C) calcium 500 mg (as 1 tab PO DAILY 90 days #90 tabs 12/26/24 Unknown Rx carbonate)-vitamin D3 15 mcg (600 unit) tablet (Os-Alexander 500 + D3) docusate sodium 100 mg capsule 100 mg PO DAILY 10 days #10 caps 12/26/24 Unknown Rx (Colace) enoxaparin 40 mg/0.4 mL 40 mg (0.4 mL) subcut DAILY 30 12/26/24 12/28/24 Rx subcutaneous syringe (Lovenox) days #12 mL oxycodone 10 mg tablet 10 mg PO Q4H pain 7 days #42 tabs 12/26/24 12/28/24 Rx hydromorphone 4 mg tablet 4 mg PO Q4H 7 days #42 tabs 12/27/24 12/29/24 Rx (Dilaudid) naloxone 4 mg/actuation nasal 1 spray intranasal Q3M #2 ea 12/27/24 Unknown Rx spray (Narcan) duloxetine 60 mg capsule,delayed 60 mg PO BID #60 caps 12/29/24 Unknown Rx release phenazopyridine 200 mg tablet 200 mg PO TID PRN pain #30 tabs 12/29/24 Unknown Rx naproxen 500 mg tablet 500 mg PO BID PRN pain #60 tabs 01/03/25 Unknown Rx hydromorphone 4 mg tablet 4 mg PO Q6H pain 7 days #28 tabs 01/06/25 Unknown Rx (Dilaudid) Allergy/AdvReac Type Severity Reaction Status Date / Time aspirin AdvReac Mild Nausea Verified 01/11/25 18:57 Family History Father Hypertension Heart disease Brother CAD (coronary artery disease) Myocardial infarction Mother Heart disease Myocardial infarction Surgical History Hx of foot surgery Hx of foot surgery Hx of cystoscopy Hx of cystoscopy History of cholecystectomy History of repair of hiatal hernia History of esophagogastroduodenoscopy (EGD) S/P laparoscopic cholecystectomy Social History household members: children Smoking Status: Current every day smoker tobacco type: cigarettes, e-cigarettes and smokeless tobacco Electronic Cigarette Use: with nicotine alcohol intake: never substance use type: marijuana EXAM Physical Exam Const Vital Signs: 01/11/25 18:55 Temperature 97.9 F Temperature Source Oral Pulse Rate 117 H Respiratory Rate 16 Blood Pressure 143/53 H Blood Pressure Mean 83 Pulse Ox 98 Oxygen Delivery Method Room Air MDM MDM MDM Narrative Medical decision making narrative: 44-year-old male with past medical history of chronic pain, GERD, HLD, lumbar disc degeneration presents for evaluation of right shoulder pain. Patient states for the past week she has had pain that radiates down the arm from her right shoulder. She describes it as sharp. Associated symptom is decreased group home manager strength. No history of carpal tunnel. Patient denies any neck pain. Denies any trauma. On physical exam, patient has tenderness to palpation of the right superior trapezius muscle as well as into the posterior shoulder. States this recreates her pain down her arm. There is no obvious signs of trauma. She is neurovascularly intact although endorses some intermittent paresthesias. She does have decreased group home manager strength on the right compared to the left. Tinel's test negative. Differential diagnosis includes but is not limited to neuropathic pain, myofascial spasm, fracture, osteoarthritis. Physical exam is not consistent with cervical radiculopathy. I did offer x-ray of the shoulder as well as IM Toradol. I do not think that there is any need for emergent MRI or CT. Patient declined x-ray and IM Toradol. She states she would like to discharge home. I recommended that she follow-up with her orthopedic physician that she follows with in [place]. She may benefit from EMG testing and further orthopedic evaluation. She confirmed understanding the plan. Patient stable to discharge home. Return precautions explained. Impression: 1. Right shoulder pain Discharge Plan Triage Chief Complaint: Upper Extremity Injury ED Provider: Blade Maradiaga Dx/Rx/DC Orders Clinical Impression: Pain in right shoulder Instructions: Medicine for Pain Prescriptions: No Action gabapentin 800 mg tablet 800 mg PO TID ferrous sulfate 325 mg (65 mg iron) tablet 325 mg PO DAILY Qty: 30 7RF folic acid 1 mg tablet 1 mg PO DAILY Qty: 30 7RF lactulose 10 gram/15 mL solution 15 ml PO DAILY Qty: 473 7RF rizatriptan 10 mg tablet 10 mg PO .COMPLEX Qty: 9 7RF Rx Instructions: Take 1 tablet orally every two hours as needed for headache up to three tablets per day topiramate 100 mg tablet 100 mg PO BID Qty: 60 7RF nortriptyline [Pamelor] 50 MG capsule 100 mg PO QHS propranolol 20 MG tablet 20 mg PO BID lamotrigine 200 mg tablet 200 mg PO DAILY tizanidine 4 mg tablet 4 mg PO TID PRN (Reason: Muscle Pain) lorazepam 1 mg tablet 0.5 mg PO BID PRN (Reason: anxiety) spironolactone 25 mg tablet 25 mg PO DAILY clonidine HCl 0.1 mg tablet 0.2 mg PO QHS promethazine 25 mg tablet 12.5 - 25 mg PO DAILY PRN (Reason: nausea and vomiting) fluorometholone 0.1 % drops,suspension 1 drp ophthalmic (eye) BID medroxyprogesterone 150 mg/mL syringe 150 mg IM .Q3MO Vraylar 3 mg capsule 3 mg PO QHS oxycodone-acetaminophen [Percocet] 10-325 mg tablet 1 tab PO Q6H PRN (Reason: pain) quetiapine 100 mg tablet 100 mg PO QHS bupropion HCl 150 mg tablet sustained-release 12 hr 150 mg PO Q12H oxycodone 10 mg tablet 10 mg PO Q4H 7 Days Qty: 42 0RF calcium carbonate-vitamin D3 [Os-Alexander 500 + D3] 500 mg-15 mcg (600 unit) tablet 1 tab PO DAILY 90 Days Qty: 90 0RF docusate sodium [Colace] 100 mg capsule 100 mg PO DAILY 10 Days Qty: 10 0RF ascorbic acid (vitamin C) [Vitamin C] 1,000 mg tablet 1 g PO DAILY 90 Days Qty: 90 0RF enoxaparin [Lovenox] 40 mg/0.4 mL syringe 40 mg subcut DAILY 30 Days Qty: 12 1RF naloxone [Narcan] 4 mg/actuation spray,non-aerosol 1 spray intranasal Q3M Qty: 2 0RF Rx Instructions: spray 1 dose into ONE nostril; alternate nostrils w each dose until help arrives hydromorphone [Dilaudid] 4 mg tablet 4 mg PO Q4H 7 Days Qty: 42 0RF hydromorphone [Dilaudid] 4 mg tablet 4 mg PO Q6H 7 Days Qty: 28 0RF phenazopyridine 200 mg tablet 200 mg PO TID PRN (Reason: pain) Qty: 30 3RF nitrofurantoin monohyd/m-cryst [Macrobid] 100 mg capsule 100 mg PO BID Qty: 20 0RF Rx Instructions: must administer with a meal/food duloxetine 60 mg capsule,delayed release(DR/EC) 60 mg PO BID Qty: 60 6RF naproxen 500 mg tablet 500 mg PO BID PRN (Reason: pain) Qty: 60 1RF Primary Care Provider: Tom Giraldo Referrals: Tom Giraldo MD [Primary Care Provider] - 3-5 Days Kamar More MD [Med Staff - Active Staff] - 3-5 Days Activity Restrictions/Additional Instructions: Follow-up with your orthopedic physician. If you want a new orthopedic physician follow-up with the one listed above. Follow-up with your primary care physician. Return back to the ED if symptoms change or worsen. Print Language: Swedish Disposition Disposition: Home, Self Care
[2025-01-11 19:52] VITALS: BP 122/88; PULSE 105; RESP 16; TEMP 36.6; O2SAT 98
== END 2025-01-11 19:58 | disposition home or self-care (01) ==
LOC: ED 19:56
PROVIDERS: Emergency Provider Surgery; PCP Family Medicine; Visit Provider Surgery
DX: M25.511 Pain in right shoulder (principal); F17.220 Nicotine dependence, chewing tobacco, uncomplicated; K21.9 Gastro-esophageal reflux disease without esophagitis; M51.369 Other intervertebral disc degeneration, lumbar region without mention of lumbar back pain or lower extremity pain; I10 Essential (primary) hypertension; F17.210 Nicotine dependence, cigarettes, uncomplicated; E78.5 Hyperlipidemia, unspecified; G89.29 Other chronic pain
CPT/HCPCS: 99282

== ENCOUNTER → 2025-02-07 | Outpatient (CLI) | payer MEDICAID, SELFPAY ==
[2025-02-07 15:16] LABS: Hematocrit 40.0 % (37-47); Hemoglobin 12.3 g/dL (12.0-15.0); Immature Granulocytes Count 0.040 X10^3/uL (0.0-0.0); Mean Corp Hgb Conc 30.8 g/dL (32-36); Mean Corpuscular Volume 94.8 fL (81-99); Mean Platelet Vol. 10.1 fl (6.2-12.0); NRBC Flagged by Analyzer 0 % (0-5); Platelet Count 306 K/mm3 (150-450); RBC Distribution Width CV 15.1 % (11.6-14.6); RBC Distribution Width SD 52.1 fl (35.1-43.9); Red Blood Count 4.22 M/mm3 (4.2-5.4); White Blood Count 8.2 K/mm3 (4.4-11.0)
[2025-02-07 15:56] LABS: Iron 79 ug/dL (50-170)
[2025-02-07 16:25] LABS: Ferritin 119 ng/mL (22-378); Vitamin B12 2130 pg/mL (180-914)
[2025-02-09 16:09] LABS: Folate, Hemolysate Test 553.0 ng/mL (Not Estab.); Folate, RBC (Hct) Test 39.4 % (34.0-46.6); Folates, RBC Test 1404 ng/mL (>498)
== END | disposition home or self-care (01) ==
LOC: MTLAB 13:34
PROVIDERS: PCP Family Medicine
DX: D64.9 Anemia, unspecified (principal); R53.83 Other fatigue
CPT/HCPCS: 36415; 82607; 82728; 82747; 83540; 85014; 85025

== ENCOUNTER → 2025-03-01 | Outpatient (CLI) | payer MEDICAID, SELFPAY ==
--- NOTE | 2025-03-01 12:39 | NEURO ---
NCS and/or EMG Patient Report Ordering Doctor: Rocky George DATE OF SERVICE: 03/01/25 Brielle presents for electrodiagnostic testing of the right upper limb. She reports pain in the right side of the shoulder with numbness in the right hand. Electrodiagnostic findings: Right median motor nerve demonstrates normal distal latency and amplitude with reduced conduction velocity. Right ulnar motor response shows a drop in conduction across the elbow greater than 25% when measured at both the ADM and FDI. Borderline prolonged right ulnar F?wave. Mildly prolonged right median sensory latency at the wrist. Needle EMG testing was performed the right upper limb. All muscles tested showed no evidence of denervation with normal motor unit action potentials. Electrodiagnostic impression: This is an abnormal study. 1. Electrodiagnostic findings suggestive of right-sided ulnar neuropathy. This is consistent with a mild right cubital tunnel syndrome, as evidenced by decreased amplitude across the elbow. 2 Electrodiagnostic findings suggestive of right sided median mononeuropathy. This consistent with a mild right carpal tunnel syndrome. 3. There is no electrodiagnostic evidence for cervical radiculopathy. Multi Select Codes Neurology Neurology Interp Codes: 29589-18 Musc test done w/n test comp (interp) and 82743-26 Nrv cndj test 7-8 studies (interp)
--- NOTE | 2025-03-01 12:39 | NEURO ---
NCS and/or EMG Patient Report Ordering Doctor: Rocky George DATE OF SERVICE: 03/01/25 Brielle presents for electrodiagnostic testing of the right upper limb. She reports pain in the right side of the shoulder with numbness in the right hand. Electrodiagnostic findings: Right median motor nerve demonstrates normal distal latency and amplitude with reduced conduction velocity. Right ulnar motor response shows a drop in conduction across the elbow greater than 25% when measured at both the ADM and FDI. Borderline prolonged right ulnar F?wave. Mildly prolonged right median sensory latency at the wrist. Needle EMG testing was performed the right upper limb. All muscles tested showed no evidence of denervation with normal motor unit action potentials. Electrodiagnostic impression: This is an abnormal study. 1. Electrodiagnostic findings suggestive of right-sided ulnar neuropathy. This is consistent with a mild right cubital tunnel syndrome, as evidenced by decreased amplitude across the elbow. 2 Electrodiagnostic findings suggestive of right sided median mononeuropathy. This consistent with a mild right carpal tunnel syndrome. 3. There is no electrodiagnostic evidence for cervical radiculopathy. Multi Select Codes Neurology Neurology Interp Codes: 41319-88 Musc test done w/n test comp (interp) and 38301-16 Nrv cndj test 7-8 studies (interp)
== END | disposition home or self-care (01) ==
LOC: PSN 09:45
PROVIDERS: PCP Family Medicine
DX: R20.2 Paresthesia of skin (principal); R29.898 Other symptoms and signs involving the musculoskeletal system
CPT/HCPCS: 95886; 95910

== ENCOUNTER → 2025-03-02 | Outpatient (CLI) | payer MEDICAID, SELFPAY ==
[2025-03-02 15:42] LABS: Anion Gap 10 (5-15); BUN 10 mg/dL (4-19); BUN/Creat Ratio 14.1 RATIO (10-20); Calcium,Total 9.3 mg/dL (7.6-11.0); Carbon Dioxide 22.5 mmol/L (21.0-32.0); Chloride 108 mmol/L (98-108); Glucose 134 mg/dL (70-99); Potassium 3.8 mmol/L (3.3-5.1)
== END | disposition home or self-care (01) ==
LOC: MTLAB 13:36
PROVIDERS: PCP Family Medicine; Referring Provider Family Medicine; Visit Provider Family Medicine
DX: Z86.39 Personal history of other endocrine, nutritional and metabolic disease (principal)
CPT/HCPCS: 36415; 80048

== ENCOUNTER → 2025-03-13 | Outpatient (CLI) | payer MEDICAID, SELFPAY ==
[2025-03-13 15:43] LABS: Anion Gap 14 (5-15); BUN 13 mg/dL (4-19); BUN/Creat Ratio 14.1 RATIO (10-20); Calcium,Total 9.7 mg/dL (7.6-11.0); Carbon Dioxide 20.0 mmol/L (21.0-32.0); Chloride 109 mmol/L (98-108); Glucose 85 mg/dL (70-99); Potassium 3.1 mmol/L (3.3-5.1)
== END | disposition home or self-care (01) ==
LOC: MTLAB 12:52
PROVIDERS: PCP Family Medicine; Referring Provider Family Medicine; Visit Provider Family Medicine
DX: E87.6 Hypokalemia (principal)
CPT/HCPCS: 36415; 80048

== ENCOUNTER → 2025-03-21 | Outpatient (CLI) | payer MEDICAID, SELFPAY ==
[2025-03-21 13:14] LABS: Anion Gap 11 (5-15); BUN 11 mg/dL (4-19); BUN/Creat Ratio 12.0 RATIO (10-20); Calcium,Total 9.3 mg/dL (7.6-11.0); Carbon Dioxide 21.5 mmol/L (21.0-32.0); Chloride 110 mmol/L (98-108); Glucose 95 mg/dL (70-99); Potassium 3.6 mmol/L (3.3-5.1)
== END | disposition home or self-care (01) ==
LOC: MTLAB 10:30
PROVIDERS: PCP Family Medicine; Referring Provider Family Medicine; Visit Provider Family Medicine
DX: E87.6 Hypokalemia (principal)
CPT/HCPCS: 36415; 80048

== ENCOUNTER 2025-04-26 21:02 | Emergency (ER) | payer MEDICAID, SELFPAY ==
[2025-04-26 21:03] VITALS: BP 113/75; PULSE 102; RESP 16; TEMP 37; O2SAT 99
--- NOTE | 2025-04-26 23:05 | ED.VIS.LOWEX ---
HPI <Dr. Sigifredo Ocasio DO - Last Filed: 04/27/25 00:23> History of Present Illness HPI Narrative: Patient presents with a right ankle injury that occurred today. Patient states she slipped and fell. Patient states she felt a pop in her right ankle. Patient describes her pain as sharp and stabbing. Patient states it is worse with movement. Patient states that it is better with rest. Patient denies any paresthesias or weakness. Patient denies any head injury or loss of consciousness. Patient denies any other injuries. Chief Complaint: Lower Extremity Injury Informant: patient Occured/Mechanism Mechanism/Context: Yes fall Onset/Context/Timing Onset: Today Context: Sudden Onset Timing: Continuous Quality of Pain: Sharp and Stabbing Location: Right ankle Worsened by: Movement Relieved by: Rest Associated Symptoms Associated Symptoms: Negative for Parasthesia, Weakness or Loss of Funtion PFSH <Dr. Sigifredo Ocasio DO - Last Filed: 04/27/25 00:23> [facility] Medical History Urinary tract infection Nocturia Urge incontinence Ambulates with cane Marijuana use Flank pain Hydronephrosis Ureteral calculus Bacteria in urine Hypomania Hydronephrosis, right Vaping nicotine dependence, tobacco product Complicated UTI (urinary tract infection) Depression Psychosis Acute hypokalemia CHARLES (acute kidney injury) Former smoker Pain in right leg Short Achilles tendon (acquired), right ankle Chronic pain Hyperammonemia Migraine headache without aura Hypokalemia Radicular pain of both lower extremities Low back pain Polycythemia Hyperglycemia Cervical radiculopathy at C8 Neck pain Restless legs Loss of hearing Wears glasses Incontinence Back pain History of pain when walking Gastroparalysis Bipolar disorder Stenosis of celiac artery Acute flank pain Bilateral edema of lower extremity Ureteral calculus, right GERD (gastroesophageal reflux disease) Kidney stones Wears dentures Depression Walker as ambulation aid Arthritis DVT (deep venous thrombosis) Blackout Shortness of breath on exertion Fibromyalgia History of edema History of stress test Decreased urine output Opioid use disorder Personality disorder, unspecified Major depressive disorder, recurrent, unspecified HLD (hyperlipidemia) Chronic back pain Chronic lumbar disc degeneration Dyslipidemia IBS (irritable bowel syndrome) Migraine Insomnia Anxiety panic HTN (hypertension) Home Medications ?Medication ?Instructions ?Recorded ?Last Taken ?Type nortriptyline 50 mg capsule 100 mg PO QHS depression 10/13/17 12/28/24 History (Pamelor) lamotrigine 200 mg tablet 200 mg PO DAILY MOOD 08/02/22 12/28/24 History tizanidine 4 mg tablet 4 mg PO TID PRN Muscle Pain 08/02/22 11/12/23 History gabapentin 800 mg tablet 800 mg PO TID 10/15/23 12/28/24 History promethazine 25 mg tablet 12.5 - 25 mg PO DAILY PRN nausea 11/13/23 12/28/24 History and vomiting cariprazine 3 mg capsule (Vraylar) 3 mg PO QHS 04/18/24 12/28/24 History medroxyprogesterone 150 mg/mL 150 mg IM .Q3MO 04/18/24 Unknown History intramuscular syringe spironolactone 25 mg tablet 25 mg PO DAILY 11/09/24 Unknown History bupropion HCl 150 mg tablet,12 hr 150 mg PO Q12H 12/23/24 12/28/24 History sustained-release quetiapine 100 mg tablet 100 mg PO QHS 12/23/24 12/28/24 History naloxone 4 mg/actuation nasal 1 spray intranasal Q3M #2 ea 12/27/24 Unknown Rx spray (Narcan) duloxetine 60 mg capsule,delayed 60 mg PO BID #60 caps 12/29/24 Unknown Rx release hydromorphone 4 mg tablet 4 mg PO Q6H pain 7 days #28 tabs 01/25/25 Unknown Rx (Dilaudid) erythromycin 5 mg/gram (0.5 %) eye ophthalmic (eye) QHS 02/06/25 Unknown History ointment ferrous sulfate 325 mg (65 mg 325 mg PO DAILY SUPPLEMENT #30 tabs 02/06/25 Unknown Rx iron) tablet folic acid 1 mg tablet 1 mg PO DAILY SUPPLEMENT #30 tabs 02/06/25 Unknown Rx topiramate 100 mg tablet 100 mg PO BID #60 tabs 02/06/25 Unknown Rx hydromorphone 4 mg tablet 4 mg PO Q6H pain 7 days #28 tabs 02/21/25 Unknown Rx lactulose 10 gram/15 mL oral 15 ml PO DAILY CONSTIPATION #473 mL 03/03/25 Unknown Rx solution rizatriptan 10 mg tablet 10 mg PO .COMPLEX migraine 03/03/25 Unknown Rx headache #9 tabs oxycodone-acetaminophen 7.5 mg-325 1 tab PO Q8H pain 7 days #21 tabs 03/06/25 Unknown Rx mg tablet (Percocet) naproxen 500 mg tablet 500 mg PO BID PRN pain #60 tabs 03/14/25 Unknown Rx hydromorphone 4 mg tablet 4 mg PO Q6H pain 7 days #28 tabs 03/20/25 Unknown Rx hydromorphone 4 mg tablet 4 mg PO Q6H pain 7 days #28 tabs 03/29/25 Unknown Rx hydromorphone 4 mg tablet 4 mg PO Q6H pain 7 days #28 tabs 04/08/25 Unknown Rx oxycodone-acetaminophen 5 mg-325 1 tab PO Q12H pain 7 days #14 tabs 04/17/25 Unknown Rx mg tablet (Percocet) oxycodone-acetaminophen 10 mg-325 1 tab PO Q6H PRN pain 5 days #20 04/27/25 Unknown Rx mg tablet (Percocet) tabs Allergy/AdvReac Type Severity Reaction Status Date / Time aspirin AdvReac Mild Nausea Verified 04/26/25 21:05 Family History Father Hypertension Heart disease Brother CAD (coronary artery disease) Myocardial infarction Mother Heart disease Myocardial infarction Surgical History Hx of foot surgery Hx of foot surgery Hx of cystoscopy Hx of cystoscopy History of cholecystectomy History of repair of hiatal hernia History of esophagogastroduodenoscopy (EGD) S/P laparoscopic cholecystectomy Social History household members: none current occupational status: disabled pets and animals: No Smoking Status: Current every day smoker tobacco type: cigarettes, e-cigarettes and smokeless tobacco Electronic Cigarette Use: with nicotine alcohol intake: never substance use type: marijuana caffeine: No do you feel safe at home: Yes ROS <Dr. Sigifredo Ocasio DO - Last Filed: 04/27/25 00:23> ROS ED Constitutional Constitutional ED: Denies chills or fever(s) Eyes Eyes: Denies blurry vision or change in vision ENT ENT ED: Denies rhinorrhea or sore throat Cardiovascular Cardiovascular: Denies chest pain or palpitations Respiratory/Chest Respiratory/Chest: Denies cough or dyspnea Gastrointestinal Gastrointestinal: Denies nausea or vomiting Genitourinary Genitourinary ED: Denies dysuria or hematuria Musculoskeletal Musculoskeletal: Denies back pain or neck pain Integumentary Denies abscess or rash Neurologic Neurologic: Denies headache(s) or weakness Allergic/Immunologic Allergic/Immunologic ED: Denies mouth swelling or urticaria EXAM <Dr. Sigifredo Ocasio, DO - Last Filed: 04/27/25 00:23> Physical Exam Const Vital Signs: 04/26/25 21:03 04/27/25 01:03 Temperature 98.6 F Temperature Source Oral Pulse Rate 102 H 68 Respiratory Rate 16 18 Blood Pressure 113/75 119/79 Blood Pressure Mean 87 92 Pulse Ox 99 97 Oxygen Delivery Method Room Air Positive well nourished and well developed General Appearance ED: well developed and NAD HEENT Reports moist mucous membranes Neck full ROM and supple Extremity Extremity Narrative: There is tenderness with mild edema over the right ankle and distal fibula. There is no tenderness over the proximal fibula. There is no tenderness over the fifth metatarsal. There is a strong pedal pulse noted. Sensation is intact to light touch in all digits. Capillary refill was less than 2 seconds in all digits. Neuro oriented x3, CN's II-XII intact bilaterally, moves all extremities and no sensory deficits noted Sensorium / Orientation: alert Motor Exam: strength 5/5 throughout Psych mental status grossly normal <Dr. Nicanor Longoria, DO - Last Filed: 04/27/25 03:42> Physical Exam Const Vital Signs: 04/26/25 21:03 04/27/25 01:03 Temperature 98.6 F Temperature Source Oral Pulse Rate 102 H 68 Respiratory Rate 16 18 Blood Pressure 113/75 119/79 Blood Pressure Mean 87 92 Pulse Ox 99 97 Oxygen Delivery Method Room Air MDM <Dr. Sigifredo Ocasio, DO - Last Filed: 04/27/25 00:23> [facility] MDM Narrative Medical decision making narrative: Differential diagnose includes fracture, sprain, and contusion. X-rays of the right ankle will be obtained to assess for fracture. Radiography Diagnostic Testing: Clinical Impression(s) from Imaging Studies Ankle X-Ray 04/26/25 23:10 IMPRESSION: As above. Reading Location: [facility] X-rays of the right ankle were obtained. There are 3 views. On my independent interpretation, there is a fracture of the tibia starting at the level of the proximal plate and screws and extending proximally. There is minimal displacement. There is no fibular fracture noted. Radiologist also interpreted the x-rays and agrees. Treatment and Re-Evaluation Narrative: Patient was initially ordered a dose of [place]. Patient declined admission. Requested IV analgesics. Patient was given saline lock IV. Patient was given a dose of morphine. Case was discussed with Dr. Miramontes from podiatry. <Dr. Nicanor Longoria, DO - Last Filed: 04/27/25 03:42> MDM Radiography Diagnostic Testing: Clinical Impression(s) from Imaging Studies Ankle X-Ray 04/26/25 23:10 IMPRESSION: As above. Reading Location: [facility] Treatment and Re-Evaluation Narrative: Patient was initially ordered a dose of Dobbins. Patient declined admission. Requested IV analgesics. Patient was given saline lock IV. Patient was given a dose of morphine. Case was discussed with Dr. Miramontes from podiatry. Patient was signed out to me while awaiting consultation with podiatry. We discussed the patient's case with chart snatcher Dr. Miramontes who had performed her previous ankle fusion. He reviewed the ankle x-rays personally and agrees with the radiologist. He also states that based on the previous hardware and the location of the fracture that this is outside the scope of practice for podiatry and she will need to follow-up with orthopedics. Therefore I discussed the case with Dr. Espinosa. He states that as the patient is closed and neurovascularly intact so there is no need for emergent orthopedic evaluation and that her fracture can be stabilized with a splint. However because of the previous fusion and hardware he also states that it is too complex and she will need to follow-up with an orthopedic trauma surgeon. Therefore we contacted [facility] transfer line. The transfer line informs us that orthopedic trauma typically follows up with Dr. Livia Merrill. Therefore the patient was given her name and information. But at this time vitals are stable she is closed and neurovascularly intact the fracture has been splinted and consultants agree there is no need for emergent surgical intervention and therefore she is otherwise safe for discharge Patient had a posterior tibial and stirrup Ortho-Glass splint placed to the right lower extremity. The splint fit the fracture fragment well with good approximation and provided proper stabilization of the fracture. Following application of the splint her capillary refill remained less than 3 seconds. Patient tolerated the procedure well without complication Discharge Plan Triage Chief Complaint: Lower Extremity Injury ED Provider: Sigifredo Ocasio Dx/Rx/DC Orders Clinical Impression: Closed fracture of right distal tibia, Fall, Anxiety and depression, Fibromyalgia Instructions: ED Leg Fracture, ED Fiberglass Splint Care Prescriptions: New oxycodone-acetaminophen [Percocet] 10-325 mg tablet 1 tab PO Q6H PRN (Reason: pain) 5 Days Qty: 20 0RF No Action gabapentin 800 mg tablet 800 mg PO TID erythromycin 5 mg/gram (0.5 %) ointment ophthalmic (eye) QHS folic acid 1 mg tablet 1 mg PO DAILY Qty: 30 6RF ferrous sulfate 325 mg (65 mg iron) tablet 325 mg PO DAILY Qty: 30 6RF topiramate 100 mg tablet 100 mg PO BID Qty: 60 6RF nortriptyline [Pamelor] 50 MG capsule 100 mg PO QHS lamotrigine 200 mg tablet 200 mg PO DAILY tizanidine 4 mg tablet 4 mg PO TID PRN (Reason: Muscle Pain) spironolactone 25 mg tablet 25 mg PO DAILY promethazine 25 mg tablet 12.5 - 25 mg PO DAILY PRN (Reason: nausea and vomiting) medroxyprogesterone 150 mg/mL syringe 150 mg IM .Q3MO Vraylar 3 mg capsule 3 mg PO QHS hydromorphone 4 mg tablet 4 mg PO Q6H 7 Days Qty: 28 0RF hydromorphone 4 mg tablet 4 mg PO Q6H 7 Days Qty: 28 0RF hydromorphone 4 mg tablet 4 mg PO Q6H 7 Days Qty: 28 0RF oxycodone-acetaminophen [Percocet] 5-325 mg tablet 1 tab PO Q12H 7 Days Qty: 14 0RF quetiapine 100 mg tablet 100 mg PO QHS bupropion HCl 150 mg tablet sustained-release 12 hr 150 mg PO Q12H naloxone [Narcan] 4 mg/actuation spray,non-aerosol 1 spray intranasal Q3M Qty: 2 0RF Rx Instructions: spray 1 dose into ONE nostril; alternate nostrils w each dose until help arrives hydromorphone [Dilaudid] 4 mg tablet 4 mg PO Q6H 7 Days Qty: 28 0RF oxycodone-acetaminophen [Percocet] 7.5-325 mg tablet 1 tab PO Q8H 7 Days Qty: 21 0RF hydromorphone 4 mg tablet 4 mg PO Q6H 7 Days Qty: 28 0RF duloxetine 60 mg capsule,delayed release(DR/EC) 60 mg PO BID Qty: 60 6RF rizatriptan 10 mg tablet 10 mg PO .COMPLEX Qty: 9 7RF Rx Instructions: Take 1 tablet orally every two hours as needed for headache up to three tablets per day lactulose 10 gram/15 mL solution 15 ml PO DAILY Qty: 473 7RF naproxen 500 mg tablet 500 mg PO BID PRN (Reason: pain) Qty: 60 2RF Primary Care Provider: Tom Giraldo Referrals: Livia Merrill [Other] Nithin Miramontes DPM [Med Staff - Active Staff, Podiatry] - 3-5 Days Tom Giraldo MD [Primary Care Provider, Family Practice] Activity Restrictions/Additional Instructions: You will need to follow-up with assessment specialist Dr. Livia Merrill. Please contact her office in order to schedule a follow-up appointment to discuss further treatment options. Wear your splint for stabilization and do not bear any weight on your right leg. Return to the ER should you have any further concern. You will also still need to follow-up with your chart snatcher Dr. Miramontes Print Language: [place] Disposition Disposition: Home, Self Care
--- NOTE | 2025-04-26 23:10 | RAD_ITS ---
PROCEDURE: ANKLE MIN 3 VIEWS 04/26/2025 REASON FOR EXAM: INJURY/PAIN TECHNIQUE: Procedure Code: RADANK Modality: DX Procedure: ANKLE MIN 3 VIEWS Laterality: FINDINGS: Plate and screw fixation of the distal tibia and talus. There is a tibial fracture superior to the plate and screw fixation. The fibula appears intact. There is mild soft tissue swelling of the ankle. RAD/Ankle min 3 Views IMPRESSION: As above. Reading Location: [facility]
--- NOTE | 2025-04-26 23:30 | ED.RN ---
RN enters patients room to inform her she has [place] for her pain meds. Patients states I can't take those. I am on day 4 of my detox. I told the doctor I need an IV with meds. Rn asks patient what she is detoxing from. Patient states dilaudid and percocet. RN notifies Dr. Ocasio of conversation. Dr. Ocasio states she never told me any of that and I am not putting an IV in her. RN understood.
[2025-04-27 01:03] VITALS: BP 119/79; PULSE 68; RESP 18; O2SAT 97
[2025-04-27 04:01] VITALS: BP 112/78; PULSE 66; RESP 16; TEMP 36.7; O2SAT 97
--- NOTE | 2025-04-27 04:01 | NURSING ---
Pt reported she has crutches at home and is refusing a new set.
== END 2025-04-27 04:03 | disposition home or self-care (01) ==
PROVIDERS: Emergency Provider Emergency Medicine; PCP Family Medicine; Visit Provider Emergency Medicine
DX: S82.301A Unspecified fracture of lower end of right tibia, initial encounter for closed fracture (principal); F41.9 Anxiety disorder, unspecified; M79.7 Fibromyalgia; E78.5 Hyperlipidemia, unspecified; I10 Essential (primary) hypertension; F17.220 Nicotine dependence, chewing tobacco, uncomplicated; F32.A Depression, unspecified; F17.210 Nicotine dependence, cigarettes, uncomplicated; K21.9 Gastro-esophageal reflux disease without esophagitis; F17.290 Nicotine dependence, other tobacco product, uncomplicated; Z98.890 Other specified postprocedural states; W01.0XXA Fall on same level from slipping, tripping and stumbling without subsequent striking against object, initial encounter
CPT/HCPCS: 29515; 73610; 96374; 96375; 96376; 99284; A4216